=== PATIENT | female | born 1945 | race Caucasian/White ===

== ENCOUNTER → 2019-06-24 | Outpatient (CLI) | payer MEDICARE, MEDICAID, SELFPAY | PROVIDERS: Family Provider Family Medicine; Visit Provider Specialist | DX: C53.9 Malignant neoplasm of cervix uteri, unspecified (principal); C79.11 Secondary malignant neoplasm of bladder | CPT/HCPCS: 99204 ==

== ENCOUNTER → 2019-07-01 | Outpatient (CLI) | payer MEDICARE, MEDICAID, SELFPAY | PROVIDERS: Family Provider Family Medicine; Visit Provider Specialist | DX: C53.9 Malignant neoplasm of cervix uteri, unspecified (principal) | CPT/HCPCS: 77290; 77334; 77470; 99213; Q9967 ==

== ENCOUNTER 2019-07-11 06:00 | Outpatient (CLI) | payer MEDICARE, MEDICAID, SELFPAY ==
--- NOTE | 2019-07-15 12:13 | ONCRAD TMN_ITS ---
Radiation Oncology Weekly Treatment Management Patient: LESLEY ORTIZ MR#: [id number] : 1945> Age: 74> Sex: Female Dictated by: Dr. Eligio Sr Date of Service: 07/15/2019 Referring Physician(s) : Dr. Aguilar Ybarra Primary Diagnosis: C53.9 - Malignant neoplasm of cervix uteri, unspecified, Diagnosed 06/21/2019 (Active) Stage EVARISTO, T4, N1, M0 Radiotherapy to date: Course: Pelvis 2019, Treatment Site: Pelvis 45Gy, Ref. ID: [id number], Energy: 15X/6X, Dose/Fx (cGy): 180, #Fx: , Dose Correction (cGy): 0, Total Dose (cGy): 180, Start Date: 07/15/2019, Elapsed Days: 0 Current Complaints/Interval History: This is a 74-year-old woman with a diagnosis of T4, N1, M0 squamous cell carcinoma involving the cervix of the uterus with metastatic pelvic and para-aortic lymph nodes shown on PET/CT. The patient denies vaginal bleeding or pelvic pain. Constitutional Complains of mild fatigue. Denies lack of appetite, fever and night sweats. Gastrointestinal Denies abdominal pain, constipation, diarrhea, heartburn / dyspepsia, melena / GI bleeding, nausea and vomiting. No rectal bleeding or irritation Genitourinary (F) Complains of nocturia gets up 2 to 3 times per night. Denies dysuria, frequency, urgency, vaginal discharge / bleeding and vaginal spotting. Current Medications: Aloxi, aLPRAZolam, cISplatin, dexamethasone Sodium Phosphate, emend, furosemide, hYDROcodone-Acetaminophen, hYDROcodone-Acetaminophen, levothyroxine Sodium, lisinopril-hydroCHLOROthiazide, lORazepam, magnesium Sulfate, metFORMIN HCl, potassium Chloride, prochlorperazine Maleate. Allergies: Penicillins. Vital Signs: Performed on 07/15/2019 10:08 AM BMI - 33.298 kg/m2 (high), Height - 66.00 in, Weight - 206.3 lbs, Temperature - 97.9 f, Pulse - 73, Respiration - 18, O2 Sat - 98 %, Pain - 0, Fatigue - 2 and BP - 168/ 77 mm(hg)(high/). Physical Exam: Appears stable, no skin erythema or desquamation. Performance Status: 1 - No physically strenuous activity, but ambulatory and able to carry out light or sedentary work (e.g. office work, light house work). (ECOG) Lab: Test performed on 07/15/2019 9:40 AM HGB - 11.4 g/dl (low), MCHC - 31.7 g/dl (low) and Test performed on 07/15/2019 9:44 AM Cr Clearance (Est) - 65.48 ml/min (low). Imaging: No new diagnostic imaging was performed since the last weekly treatment visit. All radiation therapy related imaging (including but not limited to CBCT generated images) was reviewed. Appropriate changes, if any, were made to assure accurate target localization. Impression/Plan: We will deliver concurrent chemoRT with external beam radiation therapy to the pelvis to 45Gy followed by a boost of 5.4Gy to the primary cervical cancer and metastatic lymph nodes and a 2nd boost of 9Gy to the metastatic pelvic and para-aortic lymph nodes. Started chemoRT today. Continue treatment as planned. CPT: 73866 Signed by: Dr. Eligio Sr>07/15/2019 12:12:13 PM <<Signature on File>>
== END 2019-07-11 06:01 | disposition home or self-care (01) ==
PROVIDERS: Family Provider Family Medicine; PCP Family Medicine; Visit Provider Radiology Radiation Oncology
DX: C53.9 Malignant neoplasm of cervix uteri, unspecified (principal)
CPT/HCPCS: 77300; 77301; 77338

== ENCOUNTER 2019-08-01 05:45 | Outpatient (RCR) | payer MEDICARE, MEDICAID, SELFPAY ==
[2019-07-15] MEDS: sodium chlor 0.9% + KCl 20 mEq 20 MEQ/1,000 ML BAG 500 MEQ IV (08:30)
[2019-07-15 08:51] LABS: Basophils % 0.3 %; Eosinophils # 0.2 10^3/uL (0.0-0.8); Eosinophils % 2.4 %; Hemoglobin 11.4 g/dL (11.5-15.3); Lymphocytes # 1.6 10^3/uL (0.8-4.8); Lymphocytes % 25.8 %; Mean Corpuscular HGB Conc 31.7 g/dL (30.0-36.0); Mean Corpuscular Hemoglobin 27.5 pg (28.0-34.0); Mean Corpuscular Volume 86.7 fL (81-99); Mean Platelet Volume 10.3 fL (7.4-10.4); Monocytes # 0.6 10^3/uL (0.2-0.9); Monocytes % 9.1 %; Neutrophils # 3.8 10^3/uL (1.8-7.7); Neutrophils % 62.2 %; Nucleated Red Blood Cells % 0 %; Platelet Count 250 10^3/cmm (130-400); Red Blood Count 4.15 10^6/uL (4.1-5.3); White Blood Count 6.1 10^3/uL (4.0-10.0)
[2019-07-15 09:05] LABS: Alanine Aminotransferase 23 U/L (0-33); Albumin Level 4.4 g/dL (3.5-5.2); Alkaline Phosphatase 126 IU/L (35-105); Anion Gap 16.9 (5-19); Aspartate Amino Transferase 25 U/L (0-32); Blood Urea Nitrogen 15 mg/dL (8-23); Calcium 10.6 mg/Dl (8.8-10.2); Carbon Dioxide 24 mmol/L (22-29); Chloride 99 mmol/L (98-107); Globulin 3.1 g/dL (1.3-4.6); Glucose 155 mg/dL (74-106); Potassium 3.9 mmol/L (3.5-5.1); Sodium 136 mmol/L (136-145); Total Bilirubin 0.8 mg/dL (0.15-1.2); Total Protein 7.5 g/dL (6.6-8.7)
[2019-07-15] MEDS: sodium chloride 0.9% 250 ML 75 ML IV ×2 (11:07→11:14)
--- NOTE | 2019-07-15 11:09 | ONC FU_ITS ---
[facility] Patient Note Patient: Sharon Sotelo Unit #: [id number]: 1945 Dictated By: Sesar BreenDate of Visit: Jul 15, 2019 Onc MED Follow-Up/Prog Note Chief Complaint: Cervical cancer. 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 By clinical evaluation her disease is stage EVARISTO (T4, N1, M0). On 05/03/2019 she had presented to the emergency room with pain in the left lower quadrant/left flank area and difficulty voiding. Her CT abdomen/pelvis showed a soft tissue mass which was involving the left superior lateral aspect of the urinary bladder and was contiguous with the cervix. It measured at least 4 x 4.9 x 5.8 cm. There was associated ureterovesical junction obstruction and moderate left hydronephrosis. There was associated adenopathy including a left inferior pelvic lymph node measuring 1 x 1.5 cm, a left para-aortic lymph node measuring 1.4 cm, a common iliac lymph node measuring 1.1 cm, and bilateral external iliac lymph nodes measuring up to 2.1 x 4.2 cm on the right and 1 x 1.7 cm on the left. She was referred to Dr. Britton luna in [place]. On 06/04/2019 she underwent exam under anesthesia with cervical biopsy, cystoscopy with biopsy, and rigid proctoscopy to 15 cm. Her tumor appeared to be fixed to the left pelvic sidewall and there was noted to be right-sided parametrial disease. On the cystoscopy the tumor did appear to be involving the bladder. The cervical biopsy and the bladder biopsy both showed poorly differentiated squamous cell carcinoma. She has been recommended to undergo chemoradiation, and she was seen by Dr Downey for further management. Her PET CT from 06/29/2019 reports a 3.8 x 4.5 cm cervical mass with an SUV of 10.7, representing the primary malignancy. Bilateral FDG positive pelvic nodes are consistent with local metastatic disease. The index node in the right obturator territory measures 4.7 x 2.1 cm with an SUV of 18.4. Other FDG positive nodes are present in the left obturator, right femoral and left common iliac territories. In the left periaortic territory of the retroperitoneum there is a 1.3 cm node with minimal FDG uptake likely micrometastatic disease. There is no evidence of any osseous metastatic disease or any abnormalities in the lung liver, spleen, adrenals, stomach or pancreas. Cholelithiasis was noted and left-sided hydronephrosis was noted. Sigmoid diverticulitis was also noted. The PET/CT results were forwarded to radiation oncology for planning. Mrs. Raines is here today to start radiation and her first week of cisplatin. She has no new concerns. She denies any fever or chills for at least the last 72 hours.. She has had no mouth sores, sore throat or difficulty swallowing. She denies any shortness of breath or orthopnea. She denies any chest pain or palpitations. She has had no recent nausea or vomiting. She denies diarrhea or constipation. She has had no vaginal bleeding. She states overall she feels she is doing well. Her appetite is good currently. Her energy is fair. Her ECOG is 1. Past Medical History: Anxiety Hyperlipidemia Hypertension Type II diabetes Past Surgical History: Attempted placement of PowerPort venous access device in 2019 Exam under anesthesia with cervical biopsy, rigid proctoscopy to 15 cm, and cystoscopy in 2019 Allergies: Penicillins Medications: ALPRAZolam 1 (0.25 mg) Tablet Oral daily HYDROcodone-Acetaminophen 1 (7.5-325 mg) Tablet Oral q 6 hours PRN Levothyroxine Sodium 1 (150 mcg) Tablet Oral daily Lisinopril-hydroCHLOROthiazide 1 (20-25 mg) Tablet Oral daily metFORMIN HCl 2 (500 mg) Tablet Oral daily Family History: Ms. Sotelo's mother is . Ms. Sotelo's father is . Ms. Sotelo has 2 sisters: 2 . Father had brain aneurysm. Mother of heart attack at age 74. He had 2 sisters who from breast cancer and a neice (one of their daughters) also from breast cancer. Social History: Ms. Sotelo is single and she is a disabled. Ms. Sotelo has never smoked. She has no history of drinking. She is a non-smoker. She does not drink alcohol. Review Of Symptoms: Constitutional Denies fevers, chills, night sweats, excessive fatigue or weight loss. Allergic/Immunologic No reactions. Eyes Denies significant visual changes. No diplopia. No amaurosis. ENMT Denies changes in hearing, sore throat, mouth sores, difficulty or changes in swallowing ability, and/or sinus drainage. Endocrine No diabetes, thyroid disease or hormone replacement. Denies hot flashes or night sweats. Hematologic/Lymphatic Denies easy bruising or bleeding. The patient denies any tender or palpable lymph nodes. Respiratory Denies dyspnea on exertion, chest pain, cough or hemoptysis. Denies orthopnea. Cardiovascular Denies anginal chest pain, palpitations or orthopnea. Gastrointestinal Denies nausea, vomiting, diarrhea, GI bleeding, or constipation. Denies change in bowel habits and/or stool color, no heartburn or early satiety. Genitourinary (F) No hematuria, hesitancy, incontinence, vaginal bleeding, discharge or other problems with urination. Musculoskeletal Denies joint pain, swelling or redness. No decreased range of motion. Integumentary Denies chronic rashes, inflammation, ulcerations or skin changes. Neurologic Denies headache, blurred vision, and no areas of focal weakness or numbness. Normal gait. No sensory problems. Psychiatric Denies insomnia, depression, cornelio or mood swings. Vital Signs: Performed on Jul 15, 2019 10:08 Height - 66.00 in Weight - 206.3 lbs Temperature - 97.9 F Pulse - 73 Respiration - 18 BP - 168/77 mm(hg) (HIGH) O2 Sat - 98 % Pain - 0 Fatigue - 2 Performed on Jul 15, 2019 10:08 BMI - 33.298 kg/m2 (HIGH) Performed on Jul 15, 2019 08:53 Height - 66.00 in Weight - 206.0 lbs (HIGH) BSA - 2.03 sq.m BMI - 33.25 (HIGH) Temperature - 97.9 F (LOW) Pulse - 73 /min Respiration - 12 /min BP - 168/77 mm(hg) (HIGH) O2 Sat - 98 % Pain - 0 Fatigue - 2,1 - No physically strenuous activity, but ambulatory and able to carry out light or sedentary work (e.g. office work, light house work). (ECOG) Physical Examination: Constitutional Alert, oriented, no acute distress. Skin pink, warm and dry. Head Normocephalic; atraumatic. Eyes Conjunctivae and sclerae are clear and without icterus. Pupils are reactive and equal. ENMT No oral exudates, ulcers, masses, thrush or mucositis. Oropharynx clear. Tongue normal. Neck Supple without masses or thyromegaly. No jugular venous distension. Hematologic/Lymphatic No petechiae or purpura. No tender or palpable lymph nodes in the cervical or supraclavicular areas. Respiratory Lungs are clear to auscultation without rhonchi or wheezing. Cardiovascular Regular rate and rhythm of heart without murmurs,clicks, gallops or rubs. Abdomen Non-tender, non-distended, no masses or ascites. Good bowel sounds noted in all quads. No guarding or rebound tenderness. No pulsatile masses. Back/Spine Non-tender to palpation. Extremities No visible deformities, no cyanosis, clubbing or edema. Musculoskeletal No tenderness or swelling, normal range of motion without obvious weakness. Integumentary No rashes or lesions. Neurologic No sensory or motor deficits, normal cerebellar function, normal gait. Psychiatric Alert and oriented times three. Coherent speech. Verbalizes understanding of our discussions today. Laboratory:Test performed on Jul 15, 2019 09:44 Glucose 155 mg/dL BUN 15 mg/dL Creatinine 1.1 mg/dL Cr Clearance (Est) 65.48 mL/min Sodium 136 mmol/L Potassium 3.9 mmol/L Chloride 99 mmol/L CO2 24 mmol/L Calcium 10.6 mg/dL Protein, Total 7.5 g/dL Albumin 4.4 g/dL Globulin 3.1 g/dL Bilirubin, Total 0.8 mg/dL Alkaline Phosphatase 126 IU/L AST (SGOT) 25 IU/L ALT (SGPT) 23 IU/L Test performed on Jul 15, 2019 09:40 WBC 6.1 10^9/L RBC 4.15 10^12/L HGB 11.4 g/dL HCT 36.0 % MCV 86.7 fl MCH 27.5 pg MCHC 31.7 g/dL RDW 13.0 % Platelet Count 250 10^9/L MPV 10.3 fL Neutrophils (Gran) 3.8 10^9/L Lymphocytes 1.5738 10^9/L Monocytes 0.5551 10^9/L Eosinophils 0.1464 10^9/L Basophils 0.0183 10^9/L NRBCs 0 /100 WBC Test performed on Jul 15, 2019 08:30 Neutrophil % 62.2 % Lymphocyte % 25.8 % Monocyte % 9.1 % Basophils % 0.3 % Impression: 1. 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 2. On 06/04/2019 she underwent exam under anesthesia with cervical biopsy, cystoscopy with biopsy of the bladder, and rigid proctoscopy to 15 cm. Her other medical illnesses include: 3. Hypertension. 4. Type 2 diabetes. 5. Hypothyroidism. 6. Chronic anxiety. The CT findings and pathology results were reviewed with the patient. We discussed the clinical implications. 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 Her PET CT from 06/29/2019 reports a 3.8 x 4.5 cm cervical mass with an SUV of 10.7, representing the primary malignancy. Bilateral FDG positive pelvic nodes are consistent with local metastatic disease. The index node in the right obturator territory measures 4.7 x 2.1 cm with an SUV of 18.4. Other FDG positive nodes are present in the left obturator, right femoral and left common iliac territories. In the left periaortic territory of the retroperitoneum there is a 1.3 cm node with minimal FDG uptake likely micrometastatic disease. There is no evidence of any osseous metastatic disease or any abnormalities in the lung liver, spleen, adrenals, stomach or pancreas. Cholelithiasis was noted and left-sided hydronephrosis was noted. Sigmoid diverticulitis was also noted. The PET/CT results were forwarded to radiation oncology for planning. The findings on the PET/CT make her disease more extensive, but did not change her staging or chemotherapy portion of her treatment plan. Mrs Sotelo will begin her first weekly dose of Cisplatin and radiation therapy today. Plan: 1. Proceed with week 1 cisplatin. 2. Aggressive anti-emetic as high risk regimen for nausea. 3. Compazine and Ativan as needed at home for antiemetics. 4. Today's labs reviewed in detail and discussed with Ms. Raines and a copy was given to her. WBC 6.1, hemoglobin 11.4, platelets 250,000 ANC is 3800. Creatinine 1.1 random glucose 155 calcium 10.6 alk phos 126 LFTs otherwise are normal. Potassium is 3.9. 5. We will plan follow-up in 1 week with CBC CMP and consideration of weekly cisplatin???week 2. 6. I again reviewed anticipated side effects with the chemotherapy which may include nausea/vomiting, alopecia, fatigue, low blood counts, and neuropathy, hearing changes (although low risk with weekly dosing), among others. 7. Mrs. Raines was instructed to contact us in the interim should questions or problems arise. Signed By: Sesar Breen-, AOCNP Gato Downey MD <<Signature on File>>
[2019-07-15] MEDS: FUROsemide 10 mg/mL SDV 2mL 20 MG IV (12:35)
[2019-07-15] MEDS: potassium chloride 20 MEQ in sodium chloride 0.9% 500 ML 250 MEQ IV (12:38)
[2019-07-22] MEDS: sodium chloride 0.9% 250 ML 75 ML IV (10:00)
[2019-07-22 10:49] LABS: Basophils % 0.5 %; Eosinophils # 0.1 10^3/uL (0.0-0.8); Eosinophils % 1.3 %; Hematocrit 38.1 % (37.0-47.0); Hemoglobin 12.1 g/dL (11.5-15.3); Lymphocytes # 0.8 10^3/uL (0.8-4.8); Lymphocytes % 13.4 %; Mean Corpuscular HGB Conc 31.8 g/dL (30.0-36.0); Mean Corpuscular Hemoglobin 28.8 pg (28.0-34.0); Mean Corpuscular Volume 90.7 fL (81-99); Mean Platelet Volume 10.4 fL (7.4-10.4); Monocytes # 0.5 10^3/uL (0.2-0.9); Monocytes % 7.4 %; Neutrophils # 4.7 10^3/uL (1.8-7.7); Neutrophils % 76.3 %; Nucleated Red Blood Cells % 0 %; Platelet Count 215 10^3/cmm (130-400); Red Cell Distribution Width 12.8 % (12.1-15.1); White Blood Count 6.1 10^3/uL (4.0-10.0)
[2019-07-22 11:12] LABS: Alanine Aminotransferase 21 U/L (0-33); Alkaline Phosphatase 139 IU/L (35-105); Aspartate Amino Transferase 24 U/L (0-32); Blood Urea Nitrogen 19 mg/dL (8-23); Calcium 10.6 mg/Dl (8.8-10.2); Carbon Dioxide 22 mmol/L (22-29); Chloride 96 mmol/L (98-107); Glucose 135 mg/dL (74-106); Sodium 133 mmol/L (136-145); Total Bilirubin 0.7 mg/dL (0.15-1.2)
[2019-07-22] MEDS: FUROsemide 10 mg/mL SDV 2mL 20 MG IV (14:11)
[2019-07-22] MEDS: potassium chloride 20 MEQ in sodium chloride 0.9% 500 ML 250 MEQ IV (14:15)
--- NOTE | 2019-07-23 16:01 | ONCRAD TMN_ITS ---
Radiation Oncology Weekly Treatment Management Patient: Sharon Sotelo MR#: [id number] : 1945> Age: 74> Sex: Female Dictated by: Dr. Eligio Sr Date of Service: 07/23/2019 Referring Physician(s) : Dr. Aguilar Ybarra Primary Diagnosis: C53.9 - Malignant neoplasm of cervix uteri, unspecified, Diagnosed 06/21/2019 (Active) Stage EVARISTO, T4, N1, M0 Radiotherapy to date: Course: Pelvis 2019, Treatment Site: Pelvis 45Gy, Ref. ID: [id number], Energy: 15X/6X, Dose/Fx (cGy): 180, #Fx: , Dose Correction (cGy): 0, Total Dose (cGy): 1,260, Start Date: 07/15/2019, Elapsed Days: 8 Current Complaints/Interval History: Constitutional Complains of mild fatigue. Denies lack of appetite, fever and night sweats. Integumentary No redness to the area of treatment Gastrointestinal Complains of diarrhea which is characterized as loose, watery had it on Monday and had a few episodes. Complains of nausea. Denies pelvic pain, constipation and vomiting. Genitourinary (F) Complains of nocturia gets up about 2 to 3 times per night. Denies dysuria, frequency, urgency, vaginal discharge / bleeding and vaginal spotting. Current Medications: Aloxi, aLPRAZolam, aLPRAZolam, ativan, cISplatin, dexamethasone, dexamethasone Sodium Phosphate, emend, furosemide, hYDROcodone-Acetaminophen, hYDROcodone-Acetaminophen, levothyroxine Sodium, lisinopril-hydroCHLOROthiazide, lORazepam, magnesium Sulfate, metFORMIN HCl, potassium Chloride, prochlorperazine Maleate. Allergies: Penicillins. Vital Signs: Performed on 07/23/2019 10:14 AM BMI - 33.024 kg/m2 (high), Height - 66.00 in, Weight - 204.6 lbs, Temperature - 97.5 f, Pulse - 70, Respiration - 18, O2 Sat - 98 %, Pain - 0 and BP - 146/ 76 mm(hg)(high/). Physical Exam: Appears stable, no skin erythema or desquamation. Performance Status: 2 - Ambulatory/capable of all self-care, unable to perform any work activities. Up and about more than 50% of waking hours. (ECOG) Lab: Test performed on 07/22/2019 10:30 AM MCHC - 31.8 g/dl (low), Manual Lymphocytes - 13.4 % (low), Cr Clearance (Est) - 72.03 ml/min (low) and Sodium - 133 mmol/l (low). Imaging: No new diagnostic imaging was performed since the last weekly treatment visit. All radiation therapy related imaging (including but not limited to CBCT generated images) was reviewed. Appropriate changes, if any, were made to assure accurate target localization. Impression/Plan: Tolerating treatment well with expected side effects. Continue treatment as planned. I instructed the patient again about the importance of keeping a full bladder during radiotherapy. Will refer her to [facility] for HDR brachytherapy. CPT: 94989 Signed by: Dr. Eligio Sr>07/23/2019 4:00:13 PM <<Signature on File>>
--- NOTE | 2019-07-26 20:12 | ONC FU_ITS ---
Dr. Downey Patient Follow-Up Note Patient: Sharon Sotelo Unit #: [id number]: 1945 Dicatated By: Gato Downey M.D.Date of Visit:Jul 22, 2019 Onc Med Follow-up/Prog Note Chief Complaint: Cervical cancer. 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 On 05/03/2019 she had presented to the emergency room with pain in the left lower quadrant/left flank area and difficulty voiding. Her CT abdomen/pelvis showed a soft tissue mass which was involving the left superior lateral aspect of the urinary bladder and was contiguous with the cervix. It measured at least 4 x 4.9 x 5.8 cm. There was associated ureterovesical junction obstruction and moderate left hydronephrosis. There was associated adenopathy including a left inferior pelvic lymph node measuring 1 x 1.5 cm, a left para-aortic lymph node measuring 1.4 cm, a common iliac lymph node measuring 1.1 cm, and bilateral external iliac lymph nodes measuring up to 2.1 x 4.2 cm on the right and 1 x 1.7 cm on the left. She was referred to Dr. mike luna in [place]. On 06/04/2019 she underwent exam under anesthesia with cervical biopsy, cystoscopy with biopsy, and rigid proctoscopy to 15 cm. Her tumor appeared to be fixed to the left pelvic sidewall and there was noted to be right-sided parametrial disease. On the cystoscopy the tumor did appear to be involving the bladder. The cervical biopsy and the bladder biopsy both showed poorly differentiated squamous cell carcinoma. She was recommended to undergo chemoradiation. Her other medical illnesses include hypertension, type 2 diabetes, and hypothyroidism. She also has chronic anxiety. She is a non-smoker. INTERIM HISTORY: She began radiation concurrently with weekly cisplatin chemotherapy on 07/15/2019. She experienced no acute toxicity with her initial infusion of cisplatin. She is seen for a follow-up visit. She complains that she is real tired, and she has very limited activity. ECOG score is 2. She says she has felt kind of sick and queasy since her chemotherapy last week, but she has not had any vomiting. Her appetite is not too good. She has not had fever or night sweats. She has had no mouth sores. She has no shortness of breath, cough, or chest pain. She had some diarrhea yesterday, and she continues to have pain in her lower abdomen/pelvic area. She has hesitancy with urination and some urinary frequency. She has no significant joint or bone pain. She has no focal neurologic symptoms. Medications: ALPRAZolam 1 (0.25 mg) Tablet Oral daily, HYDROcodone-Acetaminophen 1 (7.5-325 mg) Tablet Oral q 6 hours PRN, Levothyroxine Sodium 1 (150 mcg) Tablet Oral daily, Lisinopril-hydroCHLOROthiazide 1 (20-25 mg) Tablet Oral daily, metFORMIN HCl 2 Tablet (of 500 mg) Oral daily Allergies: Penicillins Review of Systems: Constitutional - She feels tired, and her activity is very limited. Her appetite is not too good. No fever, chills, hot flashes, or night sweats. ECOG score is 2, ENMT - No sinus congestion/drainage. No mouth sores. No sore throat or difficulty swallowing, Hematologic/Lymphatic - No abnormal bruising or bleeding, Respiratory - No shortness of breath. No cough. No pleuritic pain or hemoptysis, Cardiovascular - No angina pain. No palpitations, Gastrointestinal - She has felt nauseated, but without vomiting. No heartburn or acid reflux. She has lower abdominal/pelvic pain, and she had diarrhea yesterday. No blood in the stool or black stools, Genitourinary (F) - She has hesitancy with urination, and she has some urinary frequency. No dysuria or hematuria. No urgency or incontinence, Musculoskeletal - No joint or bone pain, Integumentary - No skin complications, Neurologic - No headache or dizziness. No numbness/paresthesias or other focal neurologic symptoms, Psychiatric - She has some anxiety/stress. No depression. She does not sleep well at night. Vital Signs: Performed on Jul 22, 2019 11:26 Height - 66.00 in Weight - 201.6 lbs (LOW) BSA - 2.01 sq.m BMI - 32.54 (HIGH) Temperature - 98.0 F (LOW) Pulse - 95 /min Respiration - 26 /min BP - 150/69 mm(hg) (HIGH) O2 Sat - 99 % Pain - 4 Physical Examination: Constitutional - She looks pretty good generally, Eyes - Sclerae nonicteric. Conjunctivae clear, ENMT - No lesions noted in the oral cavity, Hematologic/Lymphatic - No cervical, clavicular, or axillary adenopathy, Respiratory - Lungs are clear with good air movement bilaterally, Cardiovascular - Heart rhythm is regular. There is a II/ systolic no murmur. There is no gallop or rub noted, Abdomen - Soft with mild tenderness in the lower abdomen. Liver and spleen are not enlarged. There is no abdominal mass or ascites noted and there is no inguinal adenopathy, Extremities - No edema, Neurologic - No focal neurologic deficits noted. Lab/Imaging: Test performed on Jul 22, 2019 10:30 Glucose 135 mg/dL BUN 19 mg/dL Creatinine 1.0 mg/dL Cr Clearance (Est) 72.03 mL/min Sodium 133 mmol/L Potassium 4.0 mmol/L Chloride 96 mmol/L CO2 22 mmol/L Calcium 10.6 mg/dL Protein, Total 8.0 g/dL Albumin 4.0 g/dL Globulin 4.0 g/dL Bilirubin, Total 0.7 mg/dL Alkaline Phosphatase 139 IU/L AST (SGOT) 24 IU/L ALT (SGPT) 21 IU/L WBC 6.1 10^9/L RBC 4.20 10^12/L HGB 12.1 g/dL HCT 38.1 % MCV 90.7 fl MCH 28.8 pg MCHC 31.8 g/dL RDW 12.8 % Platelet Count 215 10^9/L MPV 10.4 fL Neutrophils (Gran) 4.7 10^9/L Lymphocytes 0.8 10^9/L Monocytes 0.5 10^9/L Eosinophils 0.1 10^9/L Basophils 0.0 10^9/L Manual Lymphocytes 13.4 % Manual Monocytes 7.4 % Manual Eosinophils 1.3 % Manual Basophils 0.5 % NRBCs 0.0 /100 WBC Impression: 1. 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 2. On 06/04/2019 she underwent exam under anesthesia with cervical biopsy, cystoscopy with biopsy of the bladder, and rigid proctoscopy to 15 cm. Her other medical illnesses include: 3. Hypertension. 4. Type 2 diabetes. 5. Hypothyroidism. 6. Chronic anxiety. She began radiation concurrently with weekly cisplatin chemotherapy on 07/15/2019. Thus far she has had some nausea and fatigue with the chemotherapy, but she has been able to tolerate it with acceptable toxicity. Plan: She will proceed with week 2 cisplatin at 40 mg/m??? by IV infusion. She will be given a dexamethasone taper with this cycle. She returns in 1 week. Signed By: Gato Downey M.D. <<Signature on File>>
[2019-07-29] MEDS: sodium chloride 0.9% 250 ML IV (10:44)
[2019-07-29 10:54] LABS: Basophils % 0.1 %; Eosinophils % 0.4 %; Hemoglobin 11.8 g/dL (11.5-15.3); Lymphocytes # 0.5 10^3/uL (0.8-4.8); Lymphocytes % 6.9 %; Mean Corpuscular HGB Conc 31.9 g/dL (30.0-36.0); Mean Corpuscular Hemoglobin 28.4 pg (28.0-34.0); Mean Corpuscular Volume 89.2 fL (81-99); Mean Platelet Volume 9.8 fL (7.4-10.4); Monocytes # 0.4 10^3/uL (0.2-0.9); Monocytes % 5.8 %; Neutrophils # 6.1 10^3/uL (1.8-7.7); Nucleated Red Blood Cells % 0 %; Platelet Count 152 10^3/cmm (130-400); Red Blood Count 4.15 10^6/uL (4.1-5.3); Red Cell Distribution Width 12.7 % (12.1-15.1); White Blood Count 7.1 10^3/uL (4.0-10.0)
[2019-07-29 11:08] LABS: Alanine Aminotransferase 19 U/L (0-33); Albumin Level 4.6 g/dL (3.5-5.2); Alkaline Phosphatase 141 IU/L (35-105); Anion Gap 20.6 (5-19); Aspartate Amino Transferase 19 U/L (0-32); Blood Urea Nitrogen 19 mg/dL (8-23); Calcium 10.9 mg/dL (8.5-10.5); Carbon Dioxide 23 mmol/L (22-29); Chloride 95 mmol/L (98-107); Globulin 3.8 g/dL (1.3-4.6); Glucose 158 mg/dL (74-106); Potassium 3.6 mmol/L (3.5-5.1); Sodium 135 mmol/L (136-145); Total Bilirubin 0.5 mg/dL (0.15-1.2); Total Protein 8.4 g/dL (6.6-8.7)
[2019-07-29] MEDS: FUROsemide 10 mg/mL SDV 2mL 20 MG IV (14:16)
[2019-07-29] MEDS: potassium chloride 20 MEQ in sodium chloride 0.9% 500 ML 250 MEQ IV (14:19)
--- NOTE | 2019-07-29 21:19 | ONC FU_ITS ---
Dr. Downey Patient Follow-Up Note Patient: Sharon Sotelo Unit #: [id number]: 1945 Dicatated By: Gato Downey M.D.Date of Visit:Jul 29, 2019 Onc Med Follow-up/Prog Note Chief Complaint: Cervical cancer. 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 On 05/03/2019 she had presented to the emergency room with pain in the left lower quadrant/left flank area and difficulty voiding. Her CT abdomen/pelvis showed a soft tissue mass which was involving the left superior lateral aspect of the urinary bladder and was contiguous with the cervix. It measured at least 4 x 4.9 x 5.8 cm. There was associated ureterovesical junction obstruction and moderate left hydronephrosis. There was associated adenopathy including a left inferior pelvic lymph node measuring 1 x 1.5 cm, a left para-aortic lymph node measuring 1.4 cm, a common iliac lymph node measuring 1.1 cm, and bilateral external iliac lymph nodes measuring up to 2.1 x 4.2 cm on the right and 1 x 1.7 cm on the left. She was referred to Dr. mike luna in [place]. On 06/04/2019 she underwent exam under anesthesia with cervical biopsy, cystoscopy with biopsy, and rigid proctoscopy to 15 cm. Her tumor appeared to be fixed to the left pelvic sidewall and there was noted to be right-sided parametrial disease. On the cystoscopy the tumor did appear to be involving the bladder. The cervical biopsy and the bladder biopsy both showed poorly differentiated squamous cell carcinoma. She was recommended to undergo chemoradiation. Her other medical illnesses include hypertension, type 2 diabetes, and hypothyroidism. She also has chronic anxiety. She is a non-smoker. INTERIM HISTORY: She began radiation concurrently with weekly cisplatin chemotherapy on 07/15/2019. She experienced no acute toxicity with her initial infusion of cisplatin. She was then able to continue with her week 2 treatment on 07/22/2019. She is seen for a follow-up visit. She says she has been feeling pretty good, though she is really tired. She is really not capable of doing work activities now, and she is having to have her daughter do most of the housework. She has pretty good appetite. She has no fever or night sweats. She has had no mouth sores. She has no shortness of breath, cough, or chest pain. She has not been having nausea. During the past week she has been having some diarrhea, but it is adequately controlled with Imodium. Bladder function is better, and she is not having to void as frequently. She has no dysuria or hematuria. She has no significant joint or bone pain. She has no focal neurologic symptoms. Medications: ALPRAZolam 1 (0.25 mg) Tablet Oral daily, HYDROcodone-Acetaminophen 1 (7.5-325 mg) Tablet Oral q 6 hours PRN, Levothyroxine Sodium 1 (150 mcg) Tablet Oral daily, Lisinopril-hydroCHLOROthiazide 1 (20-25 mg) Tablet Oral daily, metFORMIN HCl 2 Tablet (of 500 mg) Oral daily Allergies: Penicillins Review of Systems: Constitutional - Her energy is low. She is up and around at home. Her appetite is good and her weight is stable. No fever, chills, hot flashes, or night sweats. ECOG score is 2, ENMT - No sinus congestion/drainage. No mouth sores. No sore throat or difficulty swallowing, Hematologic/Lymphatic - No abnormal bruising or bleeding, Respiratory - No shortness of breath. No cough. No pleuritic pain or hemoptysis, Cardiovascular - No angina pain. No palpitations, Gastrointestinal - No nausea or vomiting. No heartburn or acid reflux. She has a lot of diarrhea. She is taking Imodium and it is working so far. No blood in the stool or black stools, Genitourinary (F) - No dysuria or hematuria. She is not urinating as frequently. No urgency or incontinence, Musculoskeletal - No joint or bone pain, Integumentary - No skin complications, Neurologic - No headache or dizziness. No numbness/paresthesias or other focal neurologic symptoms, Psychiatric - Her anxiety is a little better since increasing the dose of her Xanax. No insomnia. Vital Signs: Performed on Jul 29, 2019 11:22 Height - 66.00 in Weight - 203.2 lbs (LOW) BSA - 2.01 sq.m BMI - 32.80 (HIGH) Temperature - 97.5 F (LOW) Pulse - 77 /min Respiration - 22 /min BP - 174/78 mm(hg) (HIGH) O2 Sat - 99 % Pain - 0 Physical Examination: Constitutional - She appears somewhat weak generally, but not acutely ill, Eyes - Sclerae nonicteric. Conjunctivae clear, ENMT - No lesions noted in the oral cavity, Hematologic/Lymphatic - No cervical, clavicular, or axillary adenopathy, Respiratory - Lungs are clear with good air movement bilaterally, Cardiovascular - Heart rhythm is regular. There is a II/ systolic no murmur. There is no gallop or rub noted, Abdomen - Soft. Liver and spleen are not enlarged. There is no abdominal mass or ascites noted and there is no inguinal adenopathy, Extremities - No edema, Integumentary - There is no skin reaction, Neurologic - No focal neurologic deficits noted. Lab/Imaging: Test performed on Jul 29, 2019 10:40 Sodium 135 mmol/L Potassium 3.6 mmol/L Chloride 95 mmol/L CO2 23 mmol/L Anion Gap 20.6 BUN 19 mg/dL Creatinine 1.1 mg/dL Cr Clearance (Est) 65.4800 mL/min Glucose 158 mg/dL Calcium 10.9 mg/dL Protein, Total 8.4 g/dL Albumin 4.6 g/dL Globulin 3.8 g/dL Bilirubin, Total 0.5 mg/dL ALT (SGPT) 19 U/L AST (SGOT) 19 U/L Alkaline Phosphatase 141 IU/L WBC 7.1 10 3/uL RBC 4.15 10 6/uL HGB 11.8 g/dL HCT 37.0 % MCV 89.2 fL MCH 28.4 pg MCHC 31.9 g/dL RDW 12.7 % Platelet Count 152 10 3/cmm MPV 9.8 fL Neutrophils 6.1 10 3/uL Lymphocytes 0.5 10 3/uL Monocytes 0.4 10 3/uL Eosinophils 0.0 10 3/uL Basophils 0.0 10 3/uL Neutrophil % 86.0 % Lymphocyte % 6.9 % Monocyte % 5.8 % Eosinophil % 0.4 % Basophils % 0.1 % Impression: 1. 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 2. On 06/04/2019 she underwent exam under anesthesia with cervical biopsy, cystoscopy with biopsy of the bladder, and rigid proctoscopy to 15 cm. Her other medical illnesses include: 3. Hypertension. 4. Type 2 diabetes. 5. Hypothyroidism. 6. Chronic anxiety. She began radiation concurrently with weekly cisplatin chemotherapy on 07/15/2019. She had some nausea and fatigue with the initial chemotherapy treatment, but she was able to tolerate it with acceptable toxicity, and she continued with her week to cisplatin infusion on 07/22/2019. Since then there has been some further decline in her energy/activity tolerance, to the point that she is now requiring assistance with her tele rn. She is otherwise tolerating the treatment well. Plan: She will proceed with week 3 cisplatin at 40 mg/m??? by IV infusion. She returns in 1 week. In the meantime, I will see if we get some assistance for tele rn provided through Medicaid. Signed By: Gato Downey M.D. <<Signature on File>>
--- NOTE | 2019-07-31 16:18 | ONCRAD TMN_ITS ---
Radiation Oncology Weekly Treatment Management Patient: Sharon Sotelo MR#: [id number] : 1945 Age: 74 Sex: Female Dictated by: Dr. Eligio Sr Date of Service: 07/31/2019 Referring Physician(s) : Dr. Aguilar Ybarra Primary Diagnosis: C53.9 - Malignant neoplasm of cervix uteri, unspecified, Diagnosed 06/21/2019 (Active) Stage EVARISTO, T4, N1, M0 Radiotherapy to date: Course: Pelvis 2019, Treatment Site: Pelvis 45Gy, Ref. ID: [id number], Energy: 15X/6X, Dose/Fx (cGy): 180, #Fx: , Dose Correction (cGy): 0, Total Dose (cGy): 2,340, Start Date: 07/15/2019, Elapsed Days: 16 Current Complaints/Interval History: Constitutional Complains of moderate fatigue. Denies lack of appetite, fever and night sweats. Integumentary No redness to the area of treatment Gastrointestinal Complains of intermittent diarrhea which is characterized as loose, watery. Complains of heartburn / dyspepsia and nausea. Denies abdominal pain, constipation, melena / GI bleeding and vomiting. Genitourinary (F) Complains of nocturia gets up about 3 times per night. Denies dysuria, frequency, urgency, vaginal discharge / bleeding and vaginal spotting. Current Medications: Aloxi, aLPRAZolam, aLPRAZolam, ativan, cISplatin, dexamethasone, dexamethasone Sodium Phosphate, emend, furosemide, hYDROcodone-Acetaminophen, hYDROcodone-Acetaminophen, levothyroxine Sodium, lisinopril-hydroCHLOROthiazide, lORazepam, magnesium Sulfate, metFORMIN HCl, potassium Chloride, prochlorperazine Maleate. Allergies: Penicillins. Vital Signs: Performed on 07/31/2019 10:29 AM BMI - 33.12 kg/m2 (high), Height - 66.00 in, Weight - 205.2 lbs, Temperature - 97.3 f, Pulse - 71, Respiration - 18, O2 Sat - 98 %, Pain - 0 and BP - 125/ 73 mm(hg). Physical Exam: Appears stable, no skin erythema or desquamation. Abdomen soft and nontender Performance Status: 2 - Ambulatory/capable of all self-care, unable to perform any work activities. Up and about more than 50% of waking hours. (ECOG) Lab: None pending in Radiation Oncology. Imaging: No new diagnostic imaging was performed since the last weekly treatment visit. All radiation therapy related imaging (including but not limited to CBCT generated images) was reviewed. Appropriate changes, if any, were made to assure accurate target localization. Impression/Plan: Tolerating treatment well with expected side effects. Continue treatment as planned. Imodium prn watery diarrhea. I instructed patient to keep a full bladder during RT treatment to minimize radiation to the bowels. CPT: 08074 Signed by: Dr. Eligio Sr>07/31/2019 4:17:52 PM <<Signature on File>>
== END 2019-08-02 23:59 | disposition home or self-care (01) ==
LOC: ONCMED 05:45
PROVIDERS: Internal Medicine Medical Oncology; Nurse Practitioner; Absent Provider Radiology Radiation Oncology; Family Provider Family Medicine; PCP Family Medicine; Referring Provider Radiology Radiation Oncology; Visit Provider Radiology Radiation Oncology
DX: Z51.0 Encounter for antineoplastic radiation therapy (principal); Z51.11 Encounter for antineoplastic chemotherapy; C53.8 Malignant neoplasm of overlapping sites of cervix uteri; C77.8 Secondary and unspecified malignant neoplasm of lymph nodes of multiple regions; C79.11 Secondary malignant neoplasm of bladder; K80.20 Calculus of gallbladder without cholecystitis without obstruction; F41.9 Anxiety disorder, unspecified; E78.5 Hyperlipidemia, unspecified; I10 Essential (primary) hypertension; E11.9 Type 2 diabetes mellitus without complications; E03.9 Hypothyroidism, unspecified; Z79.891 Long term (current) use of opiate analgesic; Z79.84 Long term (current) use of oral hypoglycemic drugs
CPT/HCPCS: 77014; 77280; 77300; 77336; 77338; 77386; 77427; 80053; 85025; 96366; 96367; 96375; 96413; 99214; J1100; J1453; J1940; J2469; J3475; J3480; J7030; J7040; J7050; J9060

== ENCOUNTER 2019-08-30 05:43 | Outpatient (RCR) | payer MEDICARE, MEDICAID, SELFPAY ==
[2019-08-05 09:58] LABS: Eosinophils # 0.1 10^3/uL (0.0-0.8); Eosinophils % 2.8 %; Hematocrit 31.6 % (37.0-47.0); Hemoglobin 10.2 g/dL (11.5-15.3); Lymphocytes # 0.3 10^3/uL (0.8-4.8); Lymphocytes % 9.2 %; Mean Corpuscular HGB Conc 32.3 g/dL (30.0-36.0); Mean Corpuscular Hemoglobin 29.1 pg (28.0-34.0); Mean Platelet Volume 9.6 fL (7.4-10.4); Monocytes # 0.4 10^3/uL (0.2-0.9); Monocytes % 12.4 %; Neutrophils # 2.1 10^3/uL (1.8-7.7); Neutrophils % 74.5 %; Nucleated Red Blood Cells % 0 %; Platelet Count 109 10^3/cmm (130-400); Red Blood Count 3.51 10^6/uL (4.1-5.3); Red Cell Distribution Width 13.4 % (12.1-15.1); White Blood Count 2.8 10^3/uL (4.0-10.0)
[2019-08-05 10:15] LABS: Alanine Aminotransferase 12 U/L (0-33); Albumin Level 3.5 g/dL (3.5-5.2); Alkaline Phosphatase 124 IU/L (35-105); Anion Gap 17.9 (5-19); Aspartate Amino Transferase 14 U/L (0-32); Blood Urea Nitrogen 14 mg/dL (8-23); Calcium 9.7 mg/dL (8.5-10.5); Carbon Dioxide 25 mmol/L (22-29); Chloride 94 mmol/L (98-107); Globulin 3.7 g/dL (1.3-4.6); Glucose 173 mg/dL (74-106); Potassium 3.9 mmol/L (3.5-5.1); Sodium 133 mmol/L (136-145); Total Bilirubin 0.6 mg/dL (0.15-1.2); Total Protein 7.2 g/dL (6.6-8.7)
--- NOTE | 2019-08-05 11:36 | ONC FU_ITS ---
[facility] Patient Note Patient: Sharon Sotelo Unit #: [id number]: 1945 Dictated By: Sesar BreenDate of Visit: Aug 05, 2019 Onc MED Follow-Up/Prog Note Chief Complaint: Cervical cancer. 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 On 05/03/2019 she had presented to the emergency room with pain in the left lower quadrant/left flank area and difficulty voiding. Her CT abdomen/pelvis showed a soft tissue mass which was involving the left superior lateral aspect of the urinary bladder and was contiguous with the cervix. It measured at least 4 x 4.9 x 5.8 cm. There was associated ureterovesical junction obstruction and moderate left hydronephrosis. There was associated adenopathy including a left inferior pelvic lymph node measuring 1 x 1.5 cm, a left para-aortic lymph node measuring 1.4 cm, a common iliac lymph node measuring 1.1 cm, and bilateral external iliac lymph nodes measuring up to 2.1 x 4.2 cm on the right and 1 x 1.7 cm on the left. She was referred to Dr. Ybarra in [place]. On 06/04/2019 she underwent exam under anesthesia with cervical biopsy, cystoscopy with biopsy, and rigid proctoscopy to 15 cm. Her tumor appeared to be fixed to the left pelvic sidewall and there was noted to be right-sided parametrial disease. On the cystoscopy the tumor did appear to be involving the bladder. The cervical biopsy and the bladder biopsy both showed poorly differentiated squamous cell carcinoma. She was recommended to undergo chemoradiation. Her other medical illnesses include hypertension, type 2 diabetes, and hypothyroidism. She also has chronic anxiety. She is a non-smoker. INTERIM HISTORY: She began radiation concurrently with weekly cisplatin chemotherapy on 07/15/2019. She experienced no acute toxicity with her initial infusion of cisplatin. She was then able to continue with her week 2 treatment on 07/22/2019. Ms. Raines is here today for follow-up and consideration of week for cisplatin. She is completed 3 weeks with no problems at this point. She is had persistent diarrhea but states is no worse just no better. She is taken the Imodium several times a day. She states this does slow the diarrhea down but does not control it completely. She denies any abdominal pain or cramping. She denies any nausea or vomiting. She has had no fever or chills. She states her appetite is good although she is supplementing her diet with Ensure. She denies any hearing changes and/or peripheral neuropathy symptoms. She was able to get assistance with her trailer rental clerk through Medicaid and she is feeling some better having that help. She is able to rest a little more. Her ECOG is 1 currently. She states she continues to have the heartburn and when asked about the Protonix she did not have it from the pharmacy. I will check on this and send it to the pharmacy if it did not go through last week. She has been using Tums [id number] which gives her some relief but she is having to take multiple daily. Past Medical History: Anxiety Hyperlipidemia Hypertension Type II diabetes Past Surgical History: Attempted placement of PowerPort venous access device in 2019 Exam under anesthesia with cervical biopsy, rigid proctoscopy to 15 cm, and cystoscopy in 2019 Allergies: Penicillins Medications: ALPRAZolam 1 (0.25 mg) Tablet Oral daily HYDROcodone-Acetaminophen 1 (7.5-325 mg) Tablet Oral q 6 hours PRN Levothyroxine Sodium 1 (150 mcg) Tablet Oral daily Lisinopril-hydroCHLOROthiazide 1 (20-25 mg) Tablet Oral daily LORazepam 1 Tablet (of 1 mg) Oral t.i.d. PRN metFORMIN HCl 2 Tablet (of 500 mg) Oral daily Prochlorperazine Maleate 1 Tablet (of 10 mg) Oral q 4 hours PRN Family History: Ms. Sotelo's mother is . Ms. Sotelo's father is . Ms. Sotelo has 2 sisters: 2 . Father had brain aneurysm. Mother of heart attack at age 74. He had 2 sisters who from breast cancer and a neice (one of their daughters) also from breast cancer. Social History: Ms. Sotelo is single and she is a disabled. Ms. Sotelo has never smoked. She has no history of drinking. She is a non-smoker. She does not drink alcohol. Review Of Symptoms: Constitutional Denies fevers, chills, night sweats, excessive fatigue or weight loss. Allergic/Immunologic No reactions. Eyes Denies significant visual changes. No diplopia. No amaurosis. ENMT Denies changes in hearing, sore throat, mouth sores, difficulty or changes in swallowing ability, and/or sinus drainage. Endocrine No diabetes, thyroid disease or hormone replacement. Denies hot flashes or night sweats. Hematologic/Lymphatic Denies easy bruising or bleeding. The patient denies any tender or palpable lymph nodes. Respiratory Denies dyspnea on exertion, chest pain, cough or hemoptysis. Denies orthopnea. Cardiovascular Denies anginal chest pain, palpitations or orthopnea. Gastrointestinal Denies nausea, vomiting, GI bleeding, or constipation. Persistent diarrhea-Imodium helps but not stopping it completely. Still having heartburn-did not get Protonix. Genitourinary (F) No hematuria, hesitancy, incontinence, vaginal bleeding, discharge or other problems with urination. Musculoskeletal Denies joint pain, swelling or redness. No decreased range of motion. Integumentary Denies chronic rashes, inflammation, ulcerations or skin changes. Neurologic Denies headache, blurred vision, and no areas of focal weakness or numbness. Normal gait. No sensory problems. Psychiatric Denies insomnia, depression, cornelio or mood swings. Vital Signs: Performed on Aug 05, 2019 10:56 Height - 66.00 in Weight - 205.8 lbs (HIGH) BSA - 2.02 sq.m BMI - 33.22 (HIGH) Temperature - 97.3 F (LOW) Pulse - 84 /min Respiration - 20 /min BP - 120/66 mm(hg) O2 Sat - 99 % Pain - 0,1 - No physically strenuous activity, but ambulatory and able to carry out light or sedentary work (e.g. office work, light house work). (ECOG) Physical Examination: Constitutional Alert, oriented, no acute distress. Skin pink, warm and dry. Head Normocephalic; atraumatic. Eyes Conjunctivae and sclerae are clear and without icterus. Pupils are reactive and equal. ENMT No oral exudates, ulcers, masses, thrush or mucositis. Oropharynx clear. Tongue normal. Neck Supple without masses or thyromegaly. No jugular venous distension. Hematologic/Lymphatic No petechiae or purpura. No tender or palpable lymph nodes in the cervical or supraclavicular areas. Respiratory Lungs are clear to auscultation without rhonchi or wheezing. Cardiovascular Regular rate and rhythm of heart without clicks, gallops or rubs. She does have a soft systolic murmur. Abdomen Non-tender, non-distended, no masses or ascites. Good bowel sounds noted in all quads. No guarding or rebound tenderness. No pulsatile masses. Back/Spine Non-tender to palpation. Extremities No visible deformities, no cyanosis, clubbing or edema. Musculoskeletal No tenderness or swelling, normal range of motion without obvious weakness. Integumentary No rashes or lesions. Neurologic No sensory or motor deficits, normal cerebellar function, normal gait. Psychiatric Alert and oriented times three. Coherent speech. Verbalizes understanding of our discussions today. Laboratory:Test performed on Aug 05, 2019 09:31 Sodium 133 mmol/L Potassium 3.9 mmol/L Chloride 94 mmol/L CO2 25 mmol/L Anion Gap 17.9 BUN 14 mg/dL Creatinine 1.0 mg/dL Cr Clearance (Est) 72.0300 mL/min Glucose 173 mg/dL Calcium 9.7 mg/dL Protein, Total 7.2 g/dL Albumin 3.5 g/dL Globulin 3.7 g/dL Bilirubin, Total 0.6 mg/dL ALT (SGPT) 12 U/L AST (SGOT) 14 U/L Alkaline Phosphatase 124 IU/L WBC 2.8 10 3/uL RBC 3.51 10 6/uL HGB 10.2 g/dL HCT 31.6 % MCV 90.0 fL MCH 29.1 pg MCHC 32.3 g/dL RDW 13.4 % Platelet Count 109 10 3/cmm MPV 9.6 fL Neutrophils 2.1 10 3/uL Lymphocytes 0.3 10 3/uL Monocytes 0.4 10 3/uL Eosinophils 0.1 10 3/uL Basophils 0.0 10 3/uL Neutrophil % 74.5 % Lymphocyte % 9.2 % Monocyte % 12.4 % Eosinophil % 2.8 % Basophils % 0.0 % Test performed on Jul 22, 2019 10:30 Manual Lymphocytes 13.4 % Manual Monocytes 7.4 % Manual Eosinophils 1.3 % Manual Basophils 0.5 % NRBCs 0.0 /100 WBC Impression: 1. 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 2. On 06/04/2019 she underwent exam under anesthesia with cervical biopsy, cystoscopy with biopsy of the bladder, and rigid proctoscopy to 15 cm. Her other medical illnesses include: 3. Hypertension. 4. Type 2 diabetes. 5. Hypothyroidism. 6. Chronic anxiety. She began radiation concurrently with weekly cisplatin chemotherapy on 07/15/2019. She had some nausea and fatigue with the initial chemotherapy treatment, but she was able to tolerate it with acceptable toxicity, and she continued with her week to cisplatin infusion on 07/22/2019. Since then there has been some further decline in her energy/activity tolerance, to the point that she required assistance with her trailer rental clerk. She was able to get assistance through Medicaid for this. She has had a significant drop in her blood counts from week 3 to week for. She is having persistent diarrhea although it is no worse than what it has been it is still there. She is otherwise tolerating the treatment well. Plan: 1. Hold week for cisplatin. She had significant drop in her white blood cells and platelets. Her ANC week 3 was 6100 it is 2100 today. Her platelet count went from 152 last week to 109 this week. 2. We will plan to recheck her labs and treat her next week if labs are improved. 3. We will have her try Lomotil as directed for diarrhea. She is aware she may need to alternate it with the Imodium. She is also instructed to let us know if that is not improving her diarrhea as we may have to add Questran powder. 4. She did not get the Protonix Dr. Downey had prescribed last week so we will send that in today as well. 5. Today's labs reviewed in detail and discussed with Ms. Raines and a copy was given to her. WBC 2.8, hemoglobin 10.2, platelets 109 and ANC is 2100 potassium 3.9 creatinine 1.0 and LFTs are normal. 6. We will plan to see her back in 1 week with a CBC CMP for consideration of week for cisplatin. 7. Mrs. Shields was instructed to contact us in the interim should questions or problems arise. Signed By: Sesar Breen-, AOCNP Gato Downey MD <<Signature on File>>
--- NOTE | 2019-08-06 12:05 | ONCRAD TMN_ITS ---
Radiation Oncology Weekly Treatment Management Patient: Sharon Sotelo MR#: [id number] : 1945> Age: 74> Sex: Female Dictated by: Dr. Eligio Sr Date of Service: 08/06/2019 Referring Physician(s) : Dr. Aguilar Ybarra Primary Diagnosis: C53.9 - Malignant neoplasm of cervix uteri, unspecified, diagnosed 06/21/2019 (Active) Stage EVARISTO, T4, N1, M0 Radiotherapy to date: Course: Pelvis 2019, Treatment Site: Pelvis 45Gy, Ref. ID: [id number], Energy: 15X/6X, Dose/Fx (cGy): 180, #Fx: 16 , Dose Correction (cGy): 0, Total Dose (cGy): 2,880, Start Date: 07/15/2019, Elapsed Days: Current Complaints/Interval History: Constitutional Complains of moderate fatigue. Denies lack of appetite, fever and night sweats. Integumentary No redness to the area of treatment Gastrointestinal Complains of abdominal pain that is intermittent which is generalized / diffuse in nature. Complains of persistent diarrhea which is characterized as loose, watery. Complains of heartburn / dyspepsia. Denies melena / GI bleeding, nausea and vomiting. Genitourinary (F) Complains of nocturia gets up about 3 times per night. Denies dysuria, frequency, urgency, and vaginal discharge / spotting. Current Medications: Aloxi, aLPRAZolam, aLPRAZolam, ativan, cISplatin, dexamethasone, dexamethasone Sodium Phosphate, emend, furosemide, hYDROcodone-Acetaminophen, hYDROcodone-Acetaminophen, levothyroxine Sodium, lisinopril-hydroCHLOROthiazide, lomotil, lORazepam, lORazepam, magnesium Sulfate, metFORMIN HCl, potassium Chloride, prochlorperazine Maleate, prochlorperazine Maleate, protonix. Allergies: Penicillins. Vital Signs: Performed on 08/06/2019 10:20 AM BMI - 32.927 kg/m2 (high), Height - 66.00 in, Weight - 204.0 lbs, Temperature - 97.7 f, Pulse - 80, Respiration - 18, O2 Sat - 96 %, Pain - 0 and BP - 121/ 72 mm(hg). Physical Exam: Appears stable, no skin erythema or desquamation. Performance Status: 1 - No physically strenuous activity, but ambulatory and able to carry out light or sedentary work (e.g. office work, light house work). (ECOG) Lab: Test performed on 08/05/2019 9:31 AM WBC - 2.8 10 3/ul (low), RBC - 3.51 10 6/ul (low), HGB - 10.2 g/dl (low), HCT - 31.6 % (low), Platelet Count - 109 10 3/cmm (low), Lymphocytes - 0.3 10 3/ul (low), Sodium - 133 mmol/l (low), Chloride - 94 mmol/l (low), Creatinine - 1.0 mg/dl (high), Glucose - 173 mg/dl (high) and Alkaline Phosphatase - 124 iu/l (high). Imaging: No new diagnostic imaging was performed since the last weekly treatment visit. All radiation therapy related imaging (including but not limited to CBCT generated images) was reviewed. Appropriate changes, if any, were made to assure accurate target localization. Impression/Plan: Tolerating treatment well with expected side effects. Continue treatment as planned. Continue Imodium prn diarrhea. Ordered referral to [facility] for HDR brachytherapy. Erika will work on the referral. CPT: 26288 Signed by: Dr. Eligio Sr>08/06/2019 12:04:10 PM <<Signature on File>>
[2019-08-12] MEDS: sodium chloride 0.9% 250 ML 75 ML IV (10:22)
[2019-08-12 11:20] LABS: Basophils % 0.5 %; Eosinophils # 0.1 10^3/uL (0.0-0.8); Eosinophils % 2.3 %; Hematocrit 30.9 % (37.0-47.0); Lymphocytes # 0.3 10^3/uL (0.8-4.8); Lymphocytes % 13.8 %; Mean Corpuscular HGB Conc 32.4 g/dL (30.0-36.0); Mean Corpuscular Hemoglobin 29.2 pg (28.0-34.0); Mean Corpuscular Volume 90.4 fL (81-99); Mean Platelet Volume 9.1 fL (7.4-10.4); Monocytes # 0.2 10^3/uL (0.2-0.9); Monocytes % 10.1 %; Neutrophils # 1.6 10^3/uL (1.8-7.7); Neutrophils % 72.8 %; Nucleated Red Blood Cells % 0 %; Platelet Count 140 10^3/cmm (130-400); Red Blood Count 3.42 10^6/uL (4.1-5.3); Red Cell Distribution Width 14.7 % (12.1-15.1); White Blood Count 2.2 10^3/uL (4.0-10.0)
[2019-08-12 11:47] LABS: Alanine Aminotransferase 10 U/L (0-33); Alkaline Phosphatase 140 IU/L (35-105); Anion Gap 18.9 (5-19); Aspartate Amino Transferase 16 U/L (0-32); Blood Urea Nitrogen 18 mg/dL (8-23); Calcium 10.1 mg/dL (8.5-10.5); Carbon Dioxide 24 mmol/L (22-29); Chloride 93 mmol/L (98-107); Globulin 3.7 g/dL (1.3-4.6); Glucose 176 mg/dL (65-115); Potassium 3.9 mmol/L (3.5-5.1); Sodium 132 mmol/L (136-145); Total Bilirubin 0.5 mg/dL (0.15-1.2); Total Protein 7.7 g/dL (6.6-8.7)
[2019-08-12] MEDS: FUROsemide 10 mg/mL SDV 2mL 20 MG IV (14:02)
[2019-08-12] MEDS: potassium chloride 20 MEQ in sodium chloride 0.9% 500 ML 250 MEQ IV (14:05)
--- NOTE | 2019-08-12 15:48 | ONC FU_ITS ---
[facility] Patient Note Patient: Sharon Sotelo Unit #: [id number]: 1945 Dictated By: Sesar BreenDate of Visit: Aug 12, 2019 Onc MED Follow-Up/Prog Note Chief Complaint: Cervical cancer. 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 On 05/03/2019 she had presented to the emergency room with pain in the left lower quadrant/left flank area and difficulty voiding. Her CT abdomen/pelvis showed a soft tissue mass which was involving the left superior lateral aspect of the urinary bladder and was contiguous with the cervix. It measured at least 4 x 4.9 x 5.8 cm. There was associated ureterovesical junction obstruction and moderate left hydronephrosis. There was associated adenopathy including a left inferior pelvic lymph node measuring 1 x 1.5 cm, a left para-aortic lymph node measuring 1.4 cm, a common iliac lymph node measuring 1.1 cm, and bilateral external iliac lymph nodes measuring up to 2.1 x 4.2 cm on the right and 1 x 1.7 cm on the left. She was referred to Dr. Ybarra in [place]. On 06/04/2019 she underwent exam under anesthesia with cervical biopsy, cystoscopy with biopsy, and rigid proctoscopy to 15 cm. Her tumor appeared to be fixed to the left pelvic sidewall and there was noted to be right-sided parametrial disease. On the cystoscopy the tumor did appear to be involving the bladder. The cervical biopsy and the bladder biopsy both showed poorly differentiated squamous cell carcinoma. She was recommended to undergo chemoradiation. Her other medical illnesses include hypertension, type 2 diabetes, and hypothyroidism. She also has chronic anxiety. She is a non-smoker. INTERIM HISTORY: She began radiation concurrently with weekly cisplatin chemotherapy on 07/15/2019. She experienced no acute toxicity with her initial infusion of cisplatin. She was then able to continue with her week 2 treatment on 07/22/2019. Ms. Raines is here today for follow-up and consideration of week for cisplatin. She has completed 3 weeks with no problems at this point. Her week 4 was delayed last week due to persistent diarrhea and a significant drop in her blood counts-ANC dropped from 6100 on week 3 to 2100 week 4. She had had persistent diarrhea but had not tried Lomotil. She was prescribed Lomotil. She states the diarrhea has stopped with the Lomotil. She denies any fever or chills or signs of infection. She denies any new pain. Her appetite is good and her energy is good. She denies any vaginal bleeding; bladder complaints or constipation. She denies any new neuropathy symptoms. She states she feels pretty good overall. She has an appointment in [place] for consultation with the radiation oncologist for implants post chemoradiation. Her ECOG is 1. Past Medical History: Anxiety Hyperlipidemia Hypertension Type II diabetes Past Surgical History: Attempted placement of PowerPort venous access device in 2019 Exam under anesthesia with cervical biopsy, rigid proctoscopy to 15 cm, and cystoscopy in 2019 Allergies: Penicillins Medications: ALPRAZolam 1 (0.25 mg) Tablet Oral daily HYDROcodone-Acetaminophen 1 (7.5-325 mg) Tablet Oral q 6 hours PRN Levothyroxine Sodium 1 (150 mcg) Tablet Oral daily Lisinopril-hydroCHLOROthiazide 1 (20-25 mg) Tablet Oral daily LORazepam 1 Tablet (of 1 mg) Oral t.i.d. PRN metFORMIN HCl 2 Tablet (of 500 mg) Oral daily Prochlorperazine Maleate 1 Tablet (of 10 mg) Oral q 4 hours PRN Family History: Ms. Sotelo's mother is . Ms. Sotelo's father is . Ms. Sotelo has 2 sisters: 2 . Father had brain aneurysm. Mother of heart attack at age 74. He had 2 sisters who from breast cancer and a neice (one of their daughters) also from breast cancer. Social History: Ms. Sotelo is single and she is a disabled. Ms. Sotelo has never smoked. She has no history of drinking. She is a non-smoker. She does not drink alcohol. Review Of Symptoms: Constitutional Denies fevers, chills, night sweats, excessive fatigue or weight loss. Allergic/Immunologic No reactions. Eyes Denies significant visual changes. No diplopia. No amaurosis. ENMT Denies changes in hearing, sore throat, mouth sores, difficulty or changes in swallowing ability, and/or sinus drainage. Endocrine No diabetes, thyroid disease or hormone replacement. Denies hot flashes or night sweats. Hematologic/Lymphatic Denies easy bruising or bleeding. The patient denies any tender or palpable lymph nodes. Respiratory Denies dyspnea on exertion, chest pain, cough or hemoptysis. Denies orthopnea. Cardiovascular Denies anginal chest pain, palpitations or orthopnea. Gastrointestinal Denies nausea, vomiting, GI bleeding, or constipation. Genitourinary (F) No hematuria, hesitancy, incontinence, vaginal bleeding, discharge or other problems with urination. Musculoskeletal Denies joint pain, swelling or redness. No decreased range of motion. Integumentary Denies chronic rashes, inflammation, ulcerations or skin changes. Neurologic Denies headache, blurred vision, and no areas of focal weakness or numbness. Normal gait. No sensory problems. Psychiatric Denies insomnia, depression, cornelio or mood swings. Vital Signs: Performed on Aug 12, 2019 11:06 Height - 66.00 in Weight - 200.8 lbs (LOW) BSA - 2.00 sq.m BMI - 32.41 (HIGH) Temperature - 97.6 F (LOW) Pulse - 76 /min Respiration - 18 /min BP - 153/77 mm(hg) (HIGH) O2 Sat - 96 % Pain - 0,1 - No physically strenuous activity, but ambulatory and able to carry out light or sedentary work (e.g. office work, light house work). (ECOG) Physical Examination: Constitutional Alert, oriented, no acute distress. Skin pink, warm and dry. Head Normocephalic; atraumatic. Eyes Conjunctivae and sclerae are clear and without icterus. Pupils are reactive and equal. ENMT No oral exudates, ulcers, masses, thrush or mucositis. Oropharynx clear. Tongue normal. Neck Supple without masses or thyromegaly. No jugular venous distension. Hematologic/Lymphatic No petechiae or purpura. No tender or palpable lymph nodes in the cervical or supraclavicular areas. Respiratory Lungs are clear to auscultation without rhonchi or wheezing. Cardiovascular Regular rate and rhythm of heart without clicks, gallops or rubs. She does have a soft systolic murmur. Abdomen Non-tender, non-distended, no masses or ascites. Good bowel sounds noted in all quads. No guarding or rebound tenderness. No pulsatile masses. Back/Spine Non-tender to palpation. Extremities No visible deformities, no cyanosis, clubbing or edema. Musculoskeletal No tenderness or swelling, normal range of motion without obvious weakness. Integumentary No rashes or lesions. Neurologic No sensory or motor deficits, normal cerebellar function, normal gait. Psychiatric Alert and oriented times three. Coherent speech. Verbalizes understanding of our discussions today. Laboratory:Test performed on Aug 12, 2019 10:20 Sodium 132 mmol/L Potassium 3.9 mmol/L Chloride 93 mmol/L CO2 24 mmol/L Anion Gap 18.9 BUN 18 mg/dL Creatinine 1.2 mg/dL Cr Clearance (Est) 60.0200 mL/min Glucose 176 mg/dL Calcium 10.1 mg/dL Protein, Total 7.7 g/dL Albumin 4.0 g/dL Globulin 3.7 g/dL Bilirubin, Total 0.5 mg/dL ALT (SGPT) 10 U/L AST (SGOT) 16 U/L Alkaline Phosphatase 140 IU/L WBC 2.2 10 3/uL RBC 3.42 10 6/uL HGB 10.0 g/dL HCT 30.9 % MCV 90.4 fL MCH 29.2 pg MCHC 32.4 g/dL RDW 14.7 % Platelet Count 140 10 3/cmm MPV 9.1 fL Neutrophils 1.6 10 3/uL Lymphocytes 0.3 10 3/uL Monocytes 0.2 10 3/uL Eosinophils 0.1 10 3/uL Basophils 0.0 10 3/uL Neutrophil % 72.8 % Lymphocyte % 13.8 % Monocyte % 10.1 % Eosinophil % 2.3 % Basophils % 0.5 % Test performed on Jul 22, 2019 10:30 Manual Lymphocytes 13.4 % Manual Monocytes 7.4 % Manual Eosinophils 1.3 % Manual Basophils 0.5 % NRBCs 0.0 /100 WBC Impression: 1. 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 2. On 06/04/2019 she underwent exam under anesthesia with cervical biopsy, cystoscopy with biopsy of the bladder, and rigid proctoscopy to 15 cm. Her other medical illnesses include: 3. Hypertension. 4. Type 2 diabetes. 5. Hypothyroidism. 6. Chronic anxiety. She began radiation concurrently with weekly cisplatin chemotherapy on 07/15/2019. She had some nausea and fatigue with the initial chemotherapy treatment, but she was able to tolerate it with acceptable toxicity, and she continued with her week to cisplatin infusion on 07/22/2019. Since then there has been some further decline in her energy/activity tolerance, to the point that she required assistance with her community health outreach worker. She was able to get assistance through Medicaid for this. She has had a significant drop in her blood counts from week 3 to week for. She is having persistent diarrhea although it is no worse than what it has been it is still there. She is otherwise tolerating the treatment well. Plan: 1. Proceed with week 5 Cisplatin (after missing week 4). 2. She will need Neupogen 480 mcg for possibly up to 3 days weekly between chemotherapies for chemoinduced neutropenia. Without the Neupogen, her treatment will not be completed as per standard of care and could overall effect her treatment outcome. Her ANC is 1600 today compared to 6100 on week 3 3. We will have her continue Lomotil as directed for diarrhea. She is aware she may need to alternate it with the Imodium. She is also instructed to let us know if that is not improving her diarrhea as we may have to add Questran powder. 4. Today's labs reviewed in detail and discussed with Ms. Raines and a copy was given to her. WBC 2.2, hemoglobin 10.0, platelets 140 and ANC is 1600. 5. We will plan to see her back in 1 week with a CBC CMP for consideration of week 6 (total of 5 weeks if treated) for cisplatin. 6. Mrs. Shields was instructed to contact us in the interim should questions or problems arise. She was instructed to call us if she has any signs or symptoms of infection. Signed By: Sesar Breen-, [facility] Gato Downey MD <<Signature on File>>
--- NOTE | 2019-08-13 10:54 | ONCRAD TMN_ITS ---
Radiation Oncology Weekly Treatment Management Patient: Sharon Sotelo MR#: [id number] : 1945> Age: 74> Sex: Female Dictated by: Dr. Eligio Sr Date of Service: 08/13/2019 Referring Physician(s) : Dr. Aguilar Ybarra Primary Diagnosis: C53.9 - Malignant neoplasm of cervix uteri, unspecified, Diagnosed 06/21/2019 (Active) Stage EVARISTO, T4, N1, M0 Radiotherapy to date: Course: Pelvis 2019, Treatment Site: Pelvis 45Gy, Ref. ID: [id number], Energy: 15X/6X, Dose/Fx (cGy): 180, #Fx: , Dose Correction (cGy): 0, Total Dose (cGy): 3,780, Start Date: 07/15/2019, Elapsed Days: Current Complaints/Interval History: Constitutional Complains of moderate fatigue. Denies lack of appetite, fever and night sweats. Integumentary Has no irritation to the area of treatment Gastrointestinal Denies abdominal pain, diarrhea, heartburn / dyspepsia, nausea and vomiting. Genitourinary (F) Complains of nocturia gets up 2 to 3 times per night. Denies dysuria, frequency, urgency, vaginal discharge / bleeding and vaginal spotting. Current Medications: Aloxi, aLPRAZolam, aLPRAZolam, ativan, cISplatin, dexamethasone, dexamethasone Sodium Phosphate, emend, furosemide, hYDROcodone-Acetaminophen, hYDROcodone-Acetaminophen, levothyroxine Sodium, lisinopril-hydroCHLOROthiazide, lomotil, lORazepam, lORazepam, magnesium Sulfate, metFORMIN HCl, neupogen, potassium Chloride, prochlorperazine Maleate, prochlorperazine Maleate, protonix. Allergies: Penicillins. Vital Signs: Performed on 08/13/2019 10:05 AM Height - 66.00 in, Temperature - 98.1 f (low), Pulse - 74 /min, Respiration - 18 /min, O2 Sat - 98 %, Pain - 0, Fatigue - 0, BP - 152/ 77 mm(hg)(high/), Physical Exam: Appears stable, no skin erythema or desquamation. Performance Status: 1 - No physically strenuous activity, but ambulatory and able to carry out light or sedentary work (e.g. office work, light house work). (ECOG) Lab: Test performed on 08/12/2019 10:20 AM WBC - 2.2 10 3/ul (low), RBC - 3.42 10 6/ul (low), HGB - 10.0 g/dl (low), HCT - 30.9 % (low), Neutrophils - 1.6 10 3/ul (low), Lymphocytes - 0.3 10 3/ul (low), Sodium - 132 mmol/l (low), Chloride - 93 mmol/l (low), Creatinine - 1.2 mg/dl (high), Cr Clearance (Est) - 60.0200 ml/min (low), Glucose - 176 mg/dl (high) and Alkaline Phosphatase - 140 iu/l (high). Imaging: No new diagnostic imaging was performed since the last weekly treatment visit. All radiation therapy related imaging (including but not limited to CBCT generated images) was reviewed. Appropriate changes, if any, were made to assure accurate target localization. Impression/Plan: Tolerating treatment well with expected side effects. Continue treatment as planned. Will see rad onc in [place] to discuss about HDR brachytherapy tomorrow. CPT: 63193 Signed by: Dr. Eligio Sr>08/13/2019 10:53:04 AM <<Signature on File>>
[2019-08-15 10:05] LABS: Basophils % 0.3 %; Eosinophils % 0.6 %; Hematocrit 29.7 % (37.0-47.0); Hemoglobin 9.5 g/dL (11.5-15.3); Lymphocytes # 0.3 10^3/uL (0.8-4.8); Lymphocytes % 8.1 %; Mean Corpuscular Hemoglobin 28.2 pg (28.0-34.0); Mean Corpuscular Volume 88.1 fL (81-99); Mean Platelet Volume 9.2 fL (7.4-10.4); Monocytes # 0.4 10^3/uL (0.2-0.9); Monocytes % 11.4 %; Neutrophils # 2.2 10^3/uL (1.8-7.7); Neutrophils % 66.6 %; Nucleated Red Blood Cells % 0 %; Platelet Count 142 10^3/cmm (130-400); Red Blood Count 3.37 10^6/uL (4.1-5.3); Red Cell Distribution Width 15.4 % (12.1-15.1); White Blood Count 3.3 10^3/uL (4.0-10.0)
[2019-08-15 10:38] LABS: Slide Review Slide Review Perform
[2019-08-20] MEDS: sodium chloride 0.9% 1,000 ML 999 ML IV (11:20)
--- NOTE | 2019-08-20 11:31 | ONCRAD TMN_ITS ---
Radiation Oncology Weekly Treatment Management Patient: Sharon Sotelo MR#: [id number] : 1945> Age: 74> Sex: Female Dictated by: Dr. Eligio Sr Date of Service: 08/20/2019 Referring Physician(s) : Dr. Aguilar Ybarra Primary Diagnosis: C53.9 - Malignant neoplasm of cervix uteri, unspecified, Diagnosed 06/21/2019 (Active) Stage EVARISTO, T4, N1, M0 Radiotherapy to date: Course: Pelvis 2019, Treatment Site: Pelvis 45Gy, Ref. ID: [id number], Energy: 15X/6X, Dose/Fx (cGy): 180, #Fx: , Dose Correction (cGy): 0, Total Dose (cGy): 4,140, Start Date: 07/15/2019, Elapsed Days: 36 Current Complaints/Interval History: Constitutional Complains of a poor appetite due to severe nausea. Complains of mild fatigue. Complains of change in weight down 11 lb.s since last OTV due to having severe nausea and vomiting the past 4 days. Denies fever and night sweats. Integumentary Has no irritation to the area of treatment Gastrointestinal Complains of severe nausea and vomiting. Denies abdominal pain, constipation, diarrhea, heartburn / dyspepsia and melena / GI bleeding. Genitourinary (F) Complains of nocturia about 3 times per night. Denies dysuria, frequency, urgency, vaginal discharge / bleeding and vaginal spotting. Current Medications: Aloxi, aLPRAZolam, aLPRAZolam, ativan, cISplatin, dexamethasone, dexamethasone Sodium Phosphate, emend, furosemide, hYDROcodone-Acetaminophen, hYDROcodone-Acetaminophen, levothyroxine Sodium, lisinopril-hydroCHLOROthiazide, lomotil, lORazepam, lORazepam, magnesium Sulfate, metFORMIN HCl, neupogen, potassium Chloride, prochlorperazine Maleate, prochlorperazine Maleate, protonix. Allergies: Penicillins. Vital Signs: Performed on 08/20/2019 10:18 AM BMI - 31.28 kg/m2 (high), Height - 66.00 in, Weight - 193.8 lbs, Temperature - 97.3 f, Pulse - 103, Respiration - 20, O2 Sat - 98 %, Pain - 0 and BP - 120/ 75 mm(hg). Physical Exam: Appears stable, no skin erythema or desquamation. Performance Status: 2 - Ambulatory/capable of all self-care, unable to perform any work activities. Up and about more than 50% of waking hours. (ECOG) Lab: Test performed on 08/12/2019 10:20 AM WBC - 2.2 10 3/ul (low), RBC - 3.42 10 6/ul (low), HGB - 10.0 g/dl (low), HCT - 30.9 % (low), Neutrophils - 1.6 10 3/ul (low), Lymphocytes - 0.3 10 3/ul (low), Sodium - 132 mmol/l (low), Chloride - 93 mmol/l (low), Creatinine - 1.2 mg/dl (high), Cr Clearance (Est) - 60.0200 ml/min (low), Glucose - 176 mg/dl (high) and Alkaline Phosphatase - 140 iu/l (high). Imaging: No new diagnostic imaging was performed since the last weekly treatment visit. All radiation therapy related imaging (including but not limited to CBCT generated images) was reviewed. Appropriate changes, if any, were made to assure accurate target localization. Impression/Plan: Tolerating treatment well with expected side effects. Her nausea and vomiting are now under control by anti-nausea medication. Continue treatment as planned. CPT: 02982 Signed by: Dr. Eligio Sr>08/20/2019 11:30:21 AM <<Signature on File>>
[2019-08-20 11:50] LABS: Basophils % 0.3 %; Eosinophils % 0.3 %; Hematocrit 28.9 % (37.0-47.0); Hemoglobin 9.2 g/dL (11.5-15.3); Lymphocytes # 0.3 10^3/uL (0.8-4.8); Lymphocytes % 8.1 %; Mean Corpuscular HGB Conc 31.8 g/dL (30.0-36.0); Mean Corpuscular Hemoglobin 29.5 pg (28.0-34.0); Mean Corpuscular Volume 92.6 fL (81-99); Mean Platelet Volume 9.3 fL (7.4-10.4); Monocytes # 0.4 10^3/uL (0.2-0.9); Monocytes % 11.2 %; Neutrophils # 2.6 10^3/uL (1.8-7.7); Neutrophils % 74.6 %; Nucleated Red Blood Cells % 0 %; Platelet Count 142 10^3/cmm (130-400); Red Blood Count 3.12 10^6/uL (4.1-5.3); Red Cell Distribution Width 15.9 % (12.1-15.1); White Blood Count 3.5 10^3/uL (4.0-10.0)
[2019-08-20 12:06] LABS: Slide Review Slide Review Perform
[2019-08-20 12:30] LABS: Alanine Aminotransferase 11 U/L (0-33); Albumin Level 3.6 g/dL (3.5-5.2); Alkaline Phosphatase 170 IU/L (35-105); Anion Gap 18.2 (5-19); Aspartate Amino Transferase 15 U/L (0-32); Blood Urea Nitrogen 14 mg/dL (8-23); Calcium 9.9 mg/dL (8.5-10.5); Carbon Dioxide 23 mmol/L (22-29); Chloride 98 mmol/L (98-107); Globulin 3.6 g/dL (1.3-4.6); Glucose 142 mg/dL (65-115); Magnesium 1.9 mg/dL (1.7-2.3); Potassium 3.2 mmol/L (3.5-5.1); Sodium 136 mmol/L (136-145); Thyroid Stimulating Hormone 2.23 uIU/mL (0.27-4.20); Total Bilirubin 0.6 mg/dL (0.15-1.2); Total Protein 7.2 g/dL (6.6-8.7)
[2019-08-27] MEDS: sodium chloride 0.9% 250 ML 25 ML IV (10:24)
[2019-08-27 10:39] LABS: Basophils % 0.4 %; Hemoglobin 7.8 g/dL (11.5-15.3); Lymphocytes # 0.2 10^3/uL (0.8-4.8); Lymphocytes % 7.8 %; Mean Corpuscular HGB Conc 32.5 g/dL (30.0-36.0); Mean Corpuscular Hemoglobin 28.9 pg (28.0-34.0); Mean Corpuscular Volume 88.9 fL (81-99); Mean Platelet Volume 9.3 fL (7.4-10.4); Monocytes # 0.4 10^3/uL (0.2-0.9); Neutrophils # 1.8 10^3/uL (1.8-7.7); Neutrophils % 75.4 %; Nucleated Red Blood Cells % 0 %; Platelet Count 195 10^3/cmm (130-400); Red Cell Distribution Width 18.3 % (12.1-15.1); White Blood Count 2.4 10^3/uL (4.0-10.0)
[2019-08-27 10:49] LABS: Alanine Aminotransferase 12 U/L (0-33); Albumin Level 3.9 g/dL (3.5-5.2); Alkaline Phosphatase 206 IU/L (35-105); Anion Gap 20.5 (5-19); Aspartate Amino Transferase 16 U/L (0-32); Blood Urea Nitrogen 15 mg/dL (8-23); Calcium 10.2 mg/dL (8.5-10.5); Carbon Dioxide 21 mmol/L (22-29); Chloride 93 mmol/L (98-107); Globulin 3.4 g/dL (1.3-4.6); Glucose 196 mg/dL (65-115); Potassium 3.5 mmol/L (3.5-5.1); Sodium 131 mmol/L (136-145); Total Bilirubin 0.6 mg/dL (0.15-1.2); Total Protein 7.3 g/dL (6.6-8.7)
[2019-08-27] MEDS: FUROsemide 10 mg/mL SDV 2mL 20 MG IV (15:02)
[2019-08-27] MEDS: potassium chloride 20 MEQ in sodium chloride 0.9% 500 ML 250 MEQ IV (15:05)
[2019-08-27 15:41] LABS: Ferritin 431 ng/mL (15-150); Iron 61 ug/dL (37-145); Percent Saturation 24.7 % (20-50); Total Iron Binding Capacity 246 mcg/dl; Unsaturated Iron Binding 185 ug/dL (112-347)
[2019-08-27 15:56] LABS: Vitamin B12 871 pg/mL (232-1245)
[2019-08-28] VITALS (7 sets, daily range): BP systolic 123–151; BP diastolic 68–71; PULSE 65–73; RESP 17–18; TEMP 36.1–36.4; O2SAT 96–99
[2019-08-28] MEDS: sodium chloride 0.9% 250 ML 999 ML IV (10:55)
--- NOTE | 2019-08-28 11:19 | ONCRAD TMN_ITS ---
Radiation Oncology Weekly Treatment Management Patient: Sharon Sotelo MR#: [id number] : 1945> Age: 74> Sex: Female Dictated by: Dr. Eligio Sr Date of Service: 08/28/2019 Referring Physician(s): Dr. Aguilar Ybarra Primary Diagnosis: C53.9 - Malignant neoplasm of cervix uteri, unspecified, Diagnosed 06/21/2019 (Active) Stage EVARISTO, T4, N1, M0 Radiotherapy to date: Course: Pelvis 2019, Treatment Site: Pelvis 45Gy, Ref. ID: [id number], Energy: 15X/6X, Dose/Fx (cGy): 180, #Fx: 25 / 25, Dose Correction (cGy): 0, Total Dose (cGy): 4,500, Start Date: 07/15/2019, End Date: 08/22/2019, Elapsed Days: 38 Pelvis 2019, Treatment Site: Pelvis 59.4Gy, Ref. ID: [id number], Energy: 15X/6X, Dose/Fx (cGy): 180, #Fx: 4 / 8, Dose Correction (cGy): 0, Total Dose (cGy): 720, Start Date: 08/23/2019, Elapsed Days: 5 Current Complaints/Interval History: Constitutional Complains of moderate fatigue and rigors / chills. Denies lack of appetite, fever, night sweats and change in weight. Integumentary No redness to the area of treatment Gastrointestinal Has diarrhea but controlled by Imodium. Denies abdominal pain, constipation, GI bleeding, nausea and vomiting. No rectal bleeding or irritation Genitourinary (F) Complains of nocturia gets up about 3 times per night. Denies dysuria, frequency and urgency. Current Medications: Acetaminophen, aler-Cap, aloxi, aLPRAZolam, aLPRAZolam, ativan, cISplatin, dexamethasone, dexamethasone Sodium Phosphate, emend, furosemide, hYDROcodone-Acetaminophen, hYDROcodone-Acetaminophen, levothyroxine Sodium, lisinopril-hydroCHLOROthiazide, lomotil, lORazepam, lORazepam, magnesium Sulfate, metFORMIN HCl, neupogen, potassium Chloride, prochlorperazine Maleate, prochlorperazine Maleate, protonix, sodium Chloride. Allergies: Penicillins. Vital Signs: Performed on 08/28/2019 10:05 AM BMI - 32.604 kg/m2 (high), Height - 66.00 in, Weight - 202.0 lbs, Temperature - 97.0 f, Pulse - 95, Respiration - 20, O2 Sat - 100 %, Pain - 0 and BP - 165/ 64 mm(hg)(high/low). Physical Exam: Appears stable, no skin erythema or desquamation. Performance Status: 2 - Ambulatory/capable of all self-care, unable to perform any work activities. Up and about more than 50% of waking hours. (ECOG) Lab: Test performed on 08/27/2019 10:24 AM WBC - 2.4 10 3/ul (low), RBC - 2.70 10 6/ul (low), HGB - 7.8 g/dl (low), HCT - 24.0 % (low), RDW - 18.3 % (high), Lymphocytes - 0.2 10 3/ul (low), Sodium - 131 mmol/l (low), Chloride - 93 mmol/l (low), CO2 - 21 mmol/l (low), Anion Gap - 20.5 (high), Creatinine - 1.1 mg/dl (high), Cr Clearance (Est) - 65.4800 ml/min (low), Glucose - 196 mg/dl (high) and Alkaline Phosphatase - 206 iu/l (high). Imaging: No new diagnostic imaging was performed since the last weekly treatment visit. All radiation therapy related imaging (including but not limited to CBCT generated images) was reviewed. Appropriate changes, if any, were made to assure accurate target localization. Impression/Plan: Tolerating treatment well with expected side effects. Continue Imodium prn diarrhea. Continue treatment as planned. She is going to receive blood transfusion today. CPT: 49825 Signed by: Dr. Eligio Sr>08/28/2019 11:18:25 AM <<Signature on File>>
[2019-08-28] MEDS: acetaminophen 325 mg Tablet 650 MG PO (12:10)
[2019-08-28] MEDS: diphenhydrAMINE 25 mg Capsule PO (12:12)
--- NOTE | 2019-08-30 10:33 | ONC FU_ITS ---
[facility] Browning Patient Note Patient: Sharon Sotelo Unit #: [id number]: 1945 Dictated By: Sesar BreenDate of Visit: Aug 27, 2019 Onc MED Follow-Up/Prog Note Chief Complaint: Cervical cancer. 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 On 05/03/2019 she had presented to the emergency room with pain in the left lower quadrant/left flank area and difficulty voiding. Her CT abdomen/pelvis showed a soft tissue mass which was involving the left superior lateral aspect of the urinary bladder and was contiguous with the cervix. It measured at least 4 x 4.9 x 5.8 cm. There was associated ureterovesical junction obstruction and moderate left hydronephrosis. There was associated adenopathy including a left inferior pelvic lymph node measuring 1 x 1.5 cm, a left para-aortic lymph node measuring 1.4 cm, a common iliac lymph node measuring 1.1 cm, and bilateral external iliac lymph nodes measuring up to 2.1 x 4.2 cm on the right and 1 x 1.7 cm on the left. She was referred to Dr. Ybarra in [place]. On 06/04/2019 she underwent exam under anesthesia with cervical biopsy, cystoscopy with biopsy, and rigid proctoscopy to 15 cm. Her tumor appeared to be fixed to the left pelvic sidewall and there was noted to be right-sided parametrial disease. On the cystoscopy the tumor did appear to be involving the bladder. The cervical biopsy and the bladder biopsy both showed poorly differentiated squamous cell carcinoma. She was recommended to undergo chemoradiation. Her other medical illnesses include hypertension, type 2 diabetes, and hypothyroidism. She also has chronic anxiety. She is a non-smoker. INTERIM HISTORY: She began radiation concurrently with weekly cisplatin chemotherapy on 07/15/2019. She experienced no acute toxicity with her initial infusion of cisplatin. She was then able to continue with her week 2 treatment on 07/22/2019. Ms. Raines is here today for follow-up and consideration of week for cisplatin. She has completed 4 weeks with no problems at this point. Her week 4 was delayed on August 05, 2019 due to persistent diarrhea and a significant drop in her blood counts-ANC dropped from 6100 on week 3 to 2100 week 4. She had had persistent diarrhea but had not tried Lomotil. She was prescribed Lomotil. She states the diarrhea has stopped with the Lomotil. She denies any fever or chills or signs of infection. She denies any new pain. Her appetite is good and her energy is good. She denies any vaginal bleeding; bladder complaints or constipation. She denies any new neuropathy symptoms. She states she feels pretty good overall. She has an appointment in [place] for consultation with the radiation oncologist for implants post chemoradiation. Her ECOG is 1. Past Medical History: Anxiety Hyperlipidemia Hypertension Type II diabetes Past Surgical History: Attempted placement of PowerPort venous access device in 2019 Exam under anesthesia with cervical biopsy, rigid proctoscopy to 15 cm, and cystoscopy in 2019 Allergies: Penicillins Medications: ALPRAZolam 1 (0.25 mg) Tablet Oral daily HYDROcodone-Acetaminophen 1 (7.5-325 mg) Tablet Oral q 6 hours PRN Levothyroxine Sodium 1 (150 mcg) Tablet Oral daily Lisinopril-hydroCHLOROthiazide 1 (20-25 mg) Tablet Oral daily LORazepam 1 Tablet (of 1 mg) Oral t.i.d. PRN metFORMIN HCl 2 Tablet (of 500 mg) Oral daily Prochlorperazine Maleate 1 Tablet (of 10 mg) Oral q 4 hours PRN Family History: Ms. Sotelo's mother is . Ms. Sotelo's father is . Ms. Sotelo has 2 sisters: 2 . Father had brain aneurysm. Mother of heart attack at age 74. He had 2 sisters who from breast cancer and a neice (one of their daughters) also from breast cancer. Social History: Ms. Sotelo is single and she is a disabled. Ms. Sotelo has never smoked. She has no history of drinking. She is a non-smoker. She does not drink alcohol. Review Of Symptoms: Constitutional Denies fevers, chills, night sweats, excessive fatigue or weight loss. Allergic/Immunologic No reactions. Eyes Denies significant visual changes. No diplopia. No amaurosis. ENMT Denies changes in hearing, sore throat, mouth sores, difficulty or changes in swallowing ability, and/or sinus drainage. Endocrine No diabetes, thyroid disease or hormone replacement. Denies hot flashes or night sweats. Hematologic/Lymphatic Denies easy bruising or bleeding. The patient denies any tender or palpable lymph nodes. Respiratory Denies dyspnea on exertion, chest pain, cough or hemoptysis. Denies orthopnea. Cardiovascular Denies anginal chest pain, palpitations or orthopnea. Gastrointestinal Denies nausea, vomiting, GI bleeding, or constipation. Has had intermittent diarrhea but resolved currently. Genitourinary (F) No hematuria, hesitancy, incontinence, vaginal bleeding, discharge or other problems with urination. Musculoskeletal Denies joint pain, swelling or redness. No decreased range of motion. Integumentary Denies chronic rashes, inflammation, ulcerations or skin changes. Neurologic Denies headache, blurred vision, and no areas of focal weakness or numbness. Normal gait. No sensory problems. Psychiatric Denies insomnia, depression, cornelio or mood swings. Vital Signs: ,2 - Ambulatory/capable of all self-care, unable to perform any work activities. Up and about more than 50% of waking hours. (ECOG) Physical Examination: Constitutional Alert, oriented, no acute distress. Skin pink, warm and dry. Head Normocephalic; atraumatic. Eyes Conjunctivae and sclerae are clear and without icterus. Pupils are reactive and equal. Neck Supple without masses or thyromegaly. No jugular venous distension. Hematologic/Lymphatic No petechiae or purpura. No tender or palpable lymph nodes in the cervical or supraclavicular areas. Respiratory Lungs are clear to auscultation without rhonchi or wheezing. Cardiovascular Regular rate and rhythm of heart without clicks, gallops or rubs. She does have a soft systolic murmur. Abdomen Non-tender, non-distended, no masses or ascites. Good bowel sounds noted in all quads. No guarding or rebound tenderness. No pulsatile masses. Back/Spine Non-tender to palpation. Extremities No visible deformities, no cyanosis, clubbing or edema. Musculoskeletal No tenderness or swelling, normal range of motion without obvious weakness. Integumentary No rashes or lesions. Neurologic No sensory or motor deficits, normal cerebellar function, in treatment recliner and gait not assessed. Psychiatric Alert and oriented times three. Coherent speech. Verbalizes understanding of our discussions today. Laboratory:Test performed on Aug 27, 2019 10:24 Ferritin 431 ng/mL Iron 61 ug/dL Sodium 131 mmol/L Vitamin B12 871 pg/mL Potassium 3.5 mmol/L Chloride 93 mmol/L CO2 21 mmol/L UIBC 185 ug/dL Anion Gap 20.5 BUN 15 mg/dL Creatinine 1.1 mg/dL Cr Clearance (Est) 65.4800 mL/min Glucose 196 mg/dL Calcium 10.2 mg/dL Protein, Total 7.3 g/dL Albumin 3.9 g/dL Globulin 3.4 g/dL Bilirubin, Total 0.6 mg/dL ALT (SGPT) 12 U/L AST (SGOT) 16 U/L Alkaline Phosphatase 206 IU/L WBC 2.4 10 3/uL RBC 2.70 10 6/uL HGB 7.8 g/dL HCT 24.0 % MCV 88.9 fL MCH 28.9 pg MCHC 32.5 g/dL RDW 18.3 % Platelet Count 195 10 3/cmm MPV 9.3 fL Neutrophils 1.8 10 3/uL Lymphocytes 0.2 10 3/uL Monocytes 0.4 10 3/uL Eosinophils 0.0 10 3/uL Basophils 0.0 10 3/uL Neutrophil % 75.4 % Lymphocyte % 7.8 % Monocyte % 16.0 % Eosinophil % 0.0 % Basophils % 0.4 % Test performed on Aug 20, 2019 11:33 Magnesium 1.9 mg/dL TSH 2.23 uIU/mL CBC Slide Review Slide Review Perform SLIDE REVIEW AGREES WITH AUTOMATED RESULTS ST Impression: 1. 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 2. On 06/04/2019 she underwent exam under anesthesia with cervical biopsy, cystoscopy with biopsy of the bladder, and rigid proctoscopy to 15 cm. Her other medical illnesses include: 3. Hypertension. 4. Type 2 diabetes. 5. Hypothyroidism. 6. Chronic anxiety. She began radiation concurrently with weekly cisplatin chemotherapy on 07/15/2019. She had some nausea and fatigue with the initial chemotherapy treatment, but she was able to tolerate it with acceptable toxicity, and she continued with her week to cisplatin infusion on 07/22/2019. 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 She was able to get assistance through Medicaid for this. She has had a significant drop in her blood counts from week 3 to week for. She is having persistent diarrhea although it is no worse than what it has been it is still there. She is otherwise tolerating the treatment well. Plan: 1. Proceed with week 5 Cisplatin. 2. She will need Neupogen 480 mcg for possibly up to 3 days weekly between chemotherapies for chemoinduced neutropenia. Without the Neupogen, her treatment will not be completed as per standard of care and could overall effect her treatment outcome. Her ANC is 1800 today compared to 2600 on week 4. 3. We will have her continue Lomotil as directed for diarrhea. She is aware she may need to alternate it with the Imodium. She is also instructed to let us know if that is not improving her diarrhea as we may have to add Questran powder. 4. Today's labs reviewed in detail and discussed with Ms. Raines and a copy was given to her. WBC 2.4, hemoglobin 7.8, platelets 195 and ANC is 1800. Her alk phos was 206 which is most likely related to her previous Neupogen injections. 5. We will plan to see her back in 1 week with a CBC CMP for consideration of week 6 for cisplatin. 6. Mrs. Shields was instructed to contact us in the interim should questions or problems arise. She was instructed to call us if she has any signs or symptoms of infection. She may hae supportive care as needed in the interim. Signed By: Sesar Breen-, [facility] CENTERDede Downey MD <<Signature on File>>
== END 2019-08-31 23:59 | disposition home or self-care (01) ==
LOC: ONCMED 05:43
PROVIDERS: Internal Medicine Medical Oncology; Nurse Practitioner; Family Provider Family Medicine; PCP Family Medicine; Visit Provider Radiology Radiation Oncology
DX: Z51.0 Encounter for antineoplastic radiation therapy (principal); Z51.11 Encounter for antineoplastic chemotherapy; C53.9 Malignant neoplasm of cervix uteri, unspecified; C77.8 Secondary and unspecified malignant neoplasm of lymph nodes of multiple regions; C79.11 Secondary malignant neoplasm of bladder; D70.1 Agranulocytosis secondary to cancer chemotherapy; K52.1 Toxic gastroenteritis and colitis; T45.1X5A Adverse effect of antineoplastic and immunosuppressive drugs, initial encounter; E86.0 Dehydration; I10 Essential (primary) hypertension; E11.9 Type 2 diabetes mellitus without complications; E03.9 Hypothyroidism, unspecified; F41.9 Anxiety disorder, unspecified; E78.5 Hyperlipidemia, unspecified; Z79.891 Long term (current) use of opiate analgesic; Z79.84 Long term (current) use of oral hypoglycemic drugs
CPT/HCPCS: 36415; 36430; 77280; 77300; 77336; 77338; 77386; 80053; 82607; 82728; 83540; 83550; 83735; 84443; 85025; 86850; 86900; 86920; 96361; 96365; 96366; 96367; 96372; 96375; 96401; 96413; 99214; J1100; J1442; J1453; J1940; J2405; J2469; J3475; J3480; J3490; J7030; J7040; J7050; J9060; P9016

== ENCOUNTER 2019-09-18 08:00 | Outpatient (CLI) | payer MEDICARE, MEDICAID, SELFPAY ==
[2019-09-18] VITALS (10 sets, daily range): BP systolic 109–152; BP diastolic 52–73; PULSE 85–102; RESP 16; TEMP 36.4–37; O2SAT 96–97
[2019-09-18 09:05] LABS: Basophils % 0.5 %; Eosinophils % 0.5 %; Lymphocytes # 0.3 10^3/uL (0.8-4.8); Lymphocytes % 17.1 %; Mean Corpuscular HGB Conc 33.3 g/dL (30.0-36.0); Mean Corpuscular Hemoglobin 31.2 pg (28.0-34.0); Mean Corpuscular Volume 93.7 fL (81-99); Mean Platelet Volume 9.9 fL (7.4-10.4); Monocytes # 0.3 10^3/uL (0.2-0.9); Monocytes % 12.6 %; Neutrophils # 1.4 10^3/uL (1.8-7.7); Neutrophils % 68.8 %; Nucleated Red Blood Cells % 0 %; Platelet Count 66 10^3/cmm (130-400); Red Blood Count 2.05 10^6/uL (4.1-5.3); Red Cell Distribution Width 19.9 % (12.1-15.1)
[2019-09-18 09:19] LABS: Alanine Aminotransferase 7 U/L (0-33); Albumin Level 3.4 g/dL (3.5-5.2); Alkaline Phosphatase 178 IU/L (35-105); Anion Gap 14.9 (5-19); Aspartate Amino Transferase 11 U/L (0-32); Blood Urea Nitrogen 27 mg/dL (8-23); Calcium 9.9 mg/dL (8.5-10.5); Carbon Dioxide 28 mmol/L (22-29); Chloride 95 mmol/L (98-107); Globulin 3.6 g/dL (1.3-4.6); Glucose 188 mg/dL (65-115); Hematocrit 19.2 % (37.0-47.0); Hemoglobin 6.4 g/dL (11.5-15.3); Osmolality Calculated 280 mOsm/kg (285-295); Potassium 3.9 mmol/L (3.5-5.1); Sodium 134 mmol/L (136-145); Total Bilirubin 1.2 mg/dL (0.15-1.2)
[2019-09-18 09:29] LABS: Estmated Average Glucose 143; Hemoglobin A1C 6.6 % (4.0-6.0)
[2019-09-18] MEDS: sodium chloride 0.9% 1,000 ML 999 ML IV (09:44)
[2019-09-18 10:44] LABS: Iron 85 ug/dL (37-145); Percent Saturation 34.1 % (20-50); Total Iron Binding Capacity 249 mcg/dl; Unsaturated Iron Binding 164 ug/dL (112-347)
[2019-09-18] MEDS: acetaminophen 325 mg Tablet 650 MG PO (11:21)
[2019-09-18] MEDS: diphenhydrAMINE 25 mg Capsule PO (11:21)
[2019-09-18] MEDS: sodium chloride 0.9% 250 ML 999 ML IV (11:37)
[2019-09-18] MEDS: FUROsemide 10 mg/mL SDV 2mL 20 MG IV (13:21)
--- NOTE | 2019-09-21 06:44 | ONC FU_ITS ---
Dr. Downey Patient Follow-Up Note Patient: Sharon Sotelo Unit #: [id number]: 1945 Dicatated By: Gato Downey M.D.Date of Visit:Sep 18, 2019 Onc Med Follow-up/Prog Note Chief Complaint: Cervical cancer. 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 On 05/03/2019 she had presented to the emergency room with pain in the left lower quadrant/left flank area and difficulty voiding. Her CT abdomen/pelvis showed a soft tissue mass which was involving the left superior lateral aspect of the urinary bladder and was contiguous with the cervix. It measured at least 4 x 4.9 x 5.8 cm. There was associated ureterovesical junction obstruction and moderate left hydronephrosis. There was associated adenopathy including a left inferior pelvic lymph node measuring 1 x 1.5 cm, a left para-aortic lymph node measuring 1.4 cm, a common iliac lymph node measuring 1.1 cm, and bilateral external iliac lymph nodes measuring up to 2.1 x 4.2 cm on the right and 1 x 1.7 cm on the left. She was referred to Dr. mike luna in [place]. On 06/04/2019 she underwent exam under anesthesia with cervical biopsy, cystoscopy with biopsy, and rigid proctoscopy to 15 cm. Her tumor appeared to be fixed to the left pelvic sidewall and there was noted to be right-sided parametrial disease. On the cystoscopy the tumor did appear to be involving the bladder. The cervical biopsy and the bladder biopsy both showed poorly differentiated squamous cell carcinoma. She was recommended to undergo chemoradiation. Her other medical illnesses include hypertension, type 2 diabetes, and hypothyroidism. She also has chronic anxiety. She is a non-smoker. INTERIM HISTORY: She began radiation concurrently with weekly cisplatin chemotherapy on 07/15/2019. She experienced no acute toxicity with her initial infusion of cisplatin. She was then able to continue her treatment weekly, completing her 6th infusion of cisplatin on 09/02/2019. She completed radiation on 09/03/2019 to a total dose of 5940 cGy. During her treatment she did require some growth factor support with Neupogen. She also required IV hydration on multiple occasions for nausea and poor oral intake. She is seen for a follow-up visit. She is still not feeling good since her chemoradiation. She has very low energy and very limited activity. ECOG score is 2. She has poor appetite, and she reports having constant nausea and she has gagging every morning and evening. She has had some acid reflux. Her bowel function has been okay. She has had no diarrhea. She does have some urinary frequency and burning. She has not had fever or night sweats. Her weight is down 15 pounds. She has had no mouth sores. She has no shortness of breath, cough, or chest pain. She has no significant joint or bone pain. She has no headache or dizziness, and she has no focal neurologic symptoms. Medications: ALPRAZolam 1 (0.25 mg) Tablet Oral daily, HYDROcodone-Acetaminophen 1 (7.5-325 mg) Tablet Oral q 6 hours PRN, Levothyroxine Sodium 1 (150 mcg) Tablet Oral daily, Lisinopril-hydroCHLOROthiazide 1 (20-25 mg) Tablet Oral daily, LORazepam 1 Tablet (of 1 mg) Oral t.i.d. PRN, metFORMIN HCl 2 Tablet (of 500 mg) Oral daily, Prochlorperazine Maleate 1 Tablet (of 10 mg) Oral q 4 hours PRN Allergies: Penicillins Review of Systems: Constitutional - Her energy is very low. She hasn't felt like doing much since her last chemo infusion on 09/01. She has little to no appetite. Her weight is down 8 pounds from her 09/01 visit. No fever, chills, hot flashes, or night sweats. ECOG score is 2, ENMT - She has some sinus congestion. No mouth sores. No sore throat or difficulty swallowing, Hematologic/Lymphatic - No abnormal bruising or bleeding, Respiratory - No shortness of breath. No cough. No pleuritic pain or hemoptysis, Cardiovascular - No angina pain. No palpitations, Gastrointestinal - She is having constant nausea that is worse in the morning. No vomitting but she is constantly gagging. No diarrhea or constipation. No blood in the stool or black stools, Genitourinary (F) - She is having some dysuria. No hematuria. She has urinary frequency. No urgency or incontinence, Musculoskeletal - No joint or bone pain, Integumentary - She states that she has some brown skin coloration to her radiation site. No redness, blistering, warmth or swelling, Neurologic - No headache or dizziness. No numbness/paresthesias or other focal neurologic symptoms, Psychiatric - She has some anxiety that is controlled well with Ativan. No depression. She is unable to sleep at night. Vital Signs: Performed on Sep 18, 2019 08:09 Height - 66.00 in Weight - 188 lbs (LOW) BSA - 1.95 sq.m BMI - 30.34 (HIGH) Temperature - 97.3 F (LOW) Pulse - 106 /min (HIGH) Respiration - 17 /min BP - 110/67 mm(hg) O2 Sat - 99 % Pain - 0 Physical Examination: Constitutional - She appears generally weak and pale, Eyes - Sclerae nonicteric. Conjunctivae clear, ENMT - No lesions noted in the oral cavity, Hematologic/Lymphatic - No cervical, clavicular, or axillary adenopathy, Respiratory - Lungs sound clear, Cardiovascular - Heart rhythm is regular. There is a II/ systolic murmur. There is no gallop or rub noted, Abdomen - Mildly distended but soft. Liver and spleen are not enlarged. There is no abdominal mass or ascites noted and there is no inguinal adenopathy, Extremities - No edema, Neurologic - No focal neurologic deficits noted. Lab/Imaging: Test performed on Sep 18, 2019 08:47 Sodium 134 mmol/L Potassium 3.9 mmol/L Chloride 95 mmol/L CO2 28 mmol/L Anion Gap 14.9 BUN 27 mg/dL Creatinine 1.5 mg/dL Cr Clearance (Est) 48.0200 mL/min Glucose 188 mg/dL Calcium 9.9 mg/dL Protein, Total 7.0 g/dL Albumin 3.4 g/dL Globulin 3.6 g/dL Bilirubin, Total 1.2 mg/dL ALT (SGPT) 7 U/L AST (SGOT) 11 U/L Alkaline Phosphatase 178 IU/L Hemoglobin A1C % 6.6 % WBC 2.0 10 3/uL RBC 2.05 10 6/uL HGB 6.4 g/dL HCT 19.2 % MCV 93.7 fL MCH 31.2 pg MCHC 33.3 g/dL RDW 19.9 % Platelet Count 66 10 3/cmm MPV 9.9 fL Neutrophils 1.4 10 3/uL Lymphocytes 0.3 10 3/uL Monocytes 0.3 10 3/uL Eosinophils 0.0 10 3/uL Basophils 0.0 10 3/uL Neutrophil % 68.8 % Lymphocyte % 17.1 % Monocyte % 12.6 % Eosinophil % 0.5 % Basophils % 0.5 % Impression: 1. 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 2. On 06/04/2019 she underwent exam under anesthesia with cervical biopsy, cystoscopy with biopsy of the bladder, and rigid proctoscopy to 15 cm. Her other medical illnesses include: 3. Hypertension. 4. Type 2 diabetes. 5. Hypothyroidism. 6. Chronic anxiety. She began radiation concurrently with weekly cisplatin chemotherapy on 07/15/2019. She had some nausea and fatigue with the initial chemotherapy treatment, but she was able to tolerate it with acceptable toxicity, and she continued her treatment weekly, completing her 6th infusion of cisplatin on 09/02/2019. She completed radiation on 09/03/2019 to a total dose of 5940 cGy. During her treatment she required growth factor support with Neupogen, and she also required frequent IV hydration. At this point she continues to have ongoing fatigue and nausea/anorexia, and she has significant pancytopenia. It seems to be unusually severe considering that she completed her treatment 2 weeks ago. Plan: She will be given IV hydration and IV antiemetics. She will be transfused 2 units PRBC. She will continue additional IV hydration this week, and I also will have her try some additional steroid therapy with 4 mg dexamethasone daily. I will recheck her lab studies next week. Signed By: Gato Downey M.D. <<Signature on File>>
== END 2019-09-18 09:00 | disposition home or self-care (01) ==
LOC: ONCMED 02-18 14:16
PROVIDERS: PCP Family Medicine; Visit Provider Internal Medicine Medical Oncology
DX: C53.9 Malignant neoplasm of cervix uteri, unspecified (principal); E11.65 Type 2 diabetes mellitus with hyperglycemia; Z51.81 Encounter for therapeutic drug level monitoring; Z79.899 Other long term (current) drug therapy; D70.1 Agranulocytosis secondary to cancer chemotherapy; D64.81 Anemia due to antineoplastic chemotherapy; T45.1X5A Adverse effect of antineoplastic and immunosuppressive drugs, initial encounter
CPT/HCPCS: 36430; 80053; 83036; 83540; 83550; 85025; 86850; 86900; 86920; 96361; 96365; 96367; J1100; J1940; J2405; J7030; J7050; P9016

== ENCOUNTER 2019-09-23 05:44 | Outpatient (RCR) | payer MEDICARE, MEDICAID, SELFPAY ==
[2019-09-02] MEDS: sodium chloride 0.9% 250 ML 75 ML IV (09:10)
[2019-09-02] MEDS: sodium chloride 0.9% 250 ML 999 ML IV (09:10)
[2019-09-02 09:16] LABS: Basophils % 0.6 %; Eosinophils % 0.4 %; Hematocrit 31.4 % (37.0-47.0); Hemoglobin 10.3 g/dL (11.5-15.3); Lymphocytes # 0.3 10^3/uL (0.8-4.8); Lymphocytes % 7.1 %; Mean Corpuscular HGB Conc 32.8 g/dL (30.0-36.0); Mean Corpuscular Hemoglobin 29.1 pg (28.0-34.0); Mean Corpuscular Volume 88.7 fL (81-99); Monocytes # 0.9 10^3/uL (0.2-0.9); Monocytes % 19.2 %; Neutrophils # 3.2 10^3/uL (1.8-7.7); Neutrophils % 68.4 %; Nucleated Red Blood Cells % 0 %; Platelet Count 114 10^3/cmm (130-400); Red Blood Count 3.54 10^6/uL (4.1-5.3); Red Cell Distribution Width 16.7 % (12.1-15.1); White Blood Count 4.7 10^3/uL (4.0-10.0)
[2019-09-02 09:41] LABS: Alanine Aminotransferase 8 U/L (0-33); Alkaline Phosphatase 177 IU/L (35-105); Anion Gap 19.1 (5-19); Aspartate Amino Transferase 12 U/L (0-32); Blood Urea Nitrogen 13 mg/dL (8-23); Calcium 10.2 mg/dL (8.5-10.5); Carbon Dioxide 24 mmol/L (22-29); Chloride 98 mmol/L (98-107); Globulin 3.3 g/dL (1.3-4.6); Glucose 203 mg/dL (65-115); Potassium 3.1 mmol/L (3.5-5.1); Sodium 138 mmol/L (136-145); Total Bilirubin 0.6 mg/dL (0.15-1.2); Total Protein 7.3 g/dL (6.6-8.7)
[2019-09-02 10:30] LABS: Magnesium 1.9 mg/dL (1.7-2.3)
--- NOTE | 2019-09-02 10:52 | ONC FU_ITS ---
[facility]ning Patient Note Patient: Sharon Sotelo Unit #: [id number]: 1945 Dictated By: Sesar BreenDate of Visit: Sep 02, 2019 Onc MED Follow-Up/Prog Note Chief Complaint: Cervical cancer. 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 On 05/03/2019 she had presented to the emergency room with pain in the left lower quadrant/left flank area and difficulty voiding. Her CT abdomen/pelvis showed a soft tissue mass which was involving the left superior lateral aspect of the urinary bladder and was contiguous with the cervix. It measured at least 4 x 4.9 x 5.8 cm. There was associated ureterovesical junction obstruction and moderate left hydronephrosis. There was associated adenopathy including a left inferior pelvic lymph node measuring 1 x 1.5 cm, a left para-aortic lymph node measuring 1.4 cm, a common iliac lymph node measuring 1.1 cm, and bilateral external iliac lymph nodes measuring up to 2.1 x 4.2 cm on the right and 1 x 1.7 cm on the left. She was referred to Dr. Ybarra in [place]. On 06/04/2019 she underwent exam under anesthesia with cervical biopsy, cystoscopy with biopsy, and rigid proctoscopy to 15 cm. Her tumor appeared to be fixed to the left pelvic sidewall and there was noted to be right-sided parametrial disease. On the cystoscopy the tumor did appear to be involving the bladder. The cervical biopsy and the bladder biopsy both showed poorly differentiated squamous cell carcinoma. She was recommended to undergo chemoradiation. Her other medical illnesses include hypertension, type 2 diabetes, and hypothyroidism. She also has chronic anxiety. She is a non-smoker. INTERIM HISTORY: She began radiation concurrently with weekly cisplatin chemotherapy on 07/15/2019. She experienced no acute toxicity with her initial infusion of cisplatin. She was then able to continue with her week 2 treatment on 07/22/2019. Ms. Raines is here today for follow-up and consideration of week for cisplatin. She has completed 5 weeks with no problems at this point. Her week 4 was delayed on August 05, 2019 due to persistent diarrhea and a significant drop in her blood counts-ANC dropped from 6100 on week 3 to 2100 week 4. She had had persistent diarrhea but it does responds to Lomotil. She tolerated the Neupogen well and her counts have recovered. She did receive transfusion services for HGB of 7.8 with week 5 chemo. She denies any fever or chills or signs of infection. She denies any new pain. Her appetite is good and her energy is good. She denies any vaginal bleeding; bladder complaints or constipation. She denies any new neuropathy symptoms. She states she feels pretty good overall. She has an appointment in [place] on 09/09/2019 with the radiation oncologist for implants post chemoradiation. Her ECOG is 2. Past Medical History: Anxiety Hyperlipidemia Hypertension Type II diabetes Past Surgical History: Attempted placement of PowerPort venous access device in 2019 Exam under anesthesia with cervical biopsy, rigid proctoscopy to 15 cm, and cystoscopy in 2019 Allergies: Penicillins Medications: ALPRAZolam 1 (0.25 mg) Tablet Oral daily HYDROcodone-Acetaminophen 1 (7.5-325 mg) Tablet Oral q 6 hours PRN Levothyroxine Sodium 1 (150 mcg) Tablet Oral daily Lisinopril-hydroCHLOROthiazide 1 (20-25 mg) Tablet Oral daily LORazepam 1 Tablet (of 1 mg) Oral t.i.d. PRN metFORMIN HCl 2 Tablet (of 500 mg) Oral daily Prochlorperazine Maleate 1 Tablet (of 10 mg) Oral q 4 hours PRN Family History: Ms. Sotelo's mother is . Ms. Sotelo's father is . Ms. Sotelo has 2 sisters: 2 . Father had brain aneurysm. Mother of heart attack at age 74. He had 2 sisters who from breast cancer and a neice (one of their daughters) also from breast cancer. Social History: Ms. Sotelo is single and she is a disabled. Ms. Sotelo has never smoked. She has no history of drinking. She is a non-smoker. She does not drink alcohol. Review Of Symptoms: Constitutional Denies fevers, chills, night sweats, excessive fatigue or weight loss. Allergic/Immunologic No reactions. Eyes Denies significant visual changes. No diplopia. No amaurosis. ENMT Denies changes in hearing, sore throat, mouth sores, difficulty or changes in swallowing ability, and/or sinus drainage. Endocrine No diabetes, thyroid disease or hormone replacement. Denies hot flashes or night sweats. Hematologic/Lymphatic Denies easy bruising or bleeding. The patient denies any tender or palpable lymph nodes. Respiratory Denies dyspnea on exertion, chest pain, cough or hemoptysis. Denies orthopnea. Cardiovascular Denies anginal chest pain, palpitations or orthopnea. Gastrointestinal Denies nausea, vomiting, GI bleeding, or constipation. Has had intermittent diarrhea but resolved currently. Imodium does control it when she takes it. Genitourinary (F) No hematuria, hesitancy, incontinence, vaginal bleeding, discharge or other problems with urination. Musculoskeletal Denies joint pain, swelling or redness. No decreased range of motion. Integumentary Denies chronic rashes, inflammation, ulcerations or skin changes. Neurologic Denies headache, blurred vision, and no areas of focal weakness or numbness. Normal gait. No sensory problems. Psychiatric Denies insomnia, depression, cornelio or mood swings. Vital Signs: Performed on Sep 02, 2019 10:16 Height - 66.00 in Weight - 196 lbs (LOW) BSA - 1.98 sq.m BMI - 31.64 (HIGH) Temperature - 97.4 F (LOW) Pulse - 96 /min Respiration - 18 /min BP - 151/81 mm(hg) (HIGH) O2 Sat - 97 % Pain - 0,2 - Ambulatory/capable of all self-care, unable to perform any work activities. Up and about more than 50% of waking hours. (ECOG) Physical Examination: Constitutional Alert, oriented, no acute distress. Skin pink, warm and dry. Head Normocephalic; atraumatic. Eyes Conjunctivae and sclerae are clear and without icterus. Pupils are reactive and equal. ENMT No oral exudates, ulcers, masses, thrush or mucositis. Oropharynx clear. Tongue normal. Neck Supple without masses or thyromegaly. No jugular venous distension. Hematologic/Lymphatic No petechiae or purpura. No tender or palpable lymph nodes in the cervical or supraclavicular areas. Respiratory Lungs are clear to auscultation without rhonchi or wheezing. Cardiovascular Regular rate and rhythm of heart without clicks, gallops or rubs. She does have a soft systolic murmur. Back/Spine Non-tender to palpation. Extremities No visible deformities, no cyanosis, clubbing or edema. Musculoskeletal No tenderness or swelling, normal range of motion without obvious weakness. Integumentary No rashes or lesions. Neurologic No sensory or motor deficits, normal cerebellar function, normal gait. Psychiatric Alert and oriented times three. Coherent speech. Verbalizes understanding of our discussions today. Laboratory:Test performed on Sep 02, 2019 08:50 Magnesium 1.9 mg/dL Sodium 138 mmol/L Potassium 3.1 mmol/L Chloride 98 mmol/L CO2 24 mmol/L Anion Gap 19.1 BUN 13 mg/dL Creatinine 1.2 mg/dL Cr Clearance (Est) 60.0200 mL/min Glucose 203 mg/dL Calcium 10.2 mg/dL Protein, Total 7.3 g/dL Albumin 4.0 g/dL Globulin 3.3 g/dL Bilirubin, Total 0.6 mg/dL ALT (SGPT) 8 U/L AST (SGOT) 12 U/L Alkaline Phosphatase 177 IU/L WBC 4.7 10 3/uL RBC 3.54 10 6/uL HGB 10.3 g/dL HCT 31.4 % MCV 88.7 fL MCH 29.1 pg MCHC 32.8 g/dL RDW 16.7 % Platelet Count 114 10 3/cmm MPV 9.0 fL Neutrophils 3.2 10 3/uL Lymphocytes 0.3 10 3/uL Monocytes 0.9 10 3/uL Eosinophils 0.0 10 3/uL Basophils 0.0 10 3/uL Neutrophil % 68.4 % Lymphocyte % 7.1 % Monocyte % 19.2 % Eosinophil % 0.4 % Basophils % 0.6 % Test performed on Aug 27, 2019 10:24 Ferritin 431 ng/mL Iron 61 ug/dL Vitamin B12 871 pg/mL UIBC 185 ug/dL Impression: 1. 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 2. On 06/04/2019 she underwent exam under anesthesia with cervical biopsy, cystoscopy with biopsy of the bladder, and rigid proctoscopy to 15 cm. Her other medical illnesses include: 3. Hypertension. 4. Type 2 diabetes. 5. Hypothyroidism. 6. Chronic anxiety. She began radiation concurrently with weekly cisplatin chemotherapy on 07/15/2019. She had some nausea and fatigue with the initial chemotherapy treatment, but she was able to tolerate it with acceptable toxicity, and she continued with her week to cisplatin infusion on 07/22/2019. Since then there has been some further decline in her energy/activity tolerance, to the point that she required assistance with her foil operator. She was able to get assistance through Medicaid for this. She has had a significant drop in her blood counts from week 3 to week for. She is having persistent diarrhea but it is controlled with Lomotil when she takes it. She is otherwise tolerating the treatment well. She will complete her 6th weekly dose of Cisplatin today and completed radiation therapy on 09/03/2019. Plan: 1. Proceed with week 6 Cisplatin. 2. She responded well to the Neupogen as her ANC today is 3200. 3. We will have her continue Lomotil as directed for diarrhea. She is aware she may need to alternate it with the Imodium. She is also instructed to let us know if that is not improving her diarrhea as we may have to add Questran powder. 4. Today's labs reviewed in detail and discussed with Ms. Raines and a copy was given to her. WBC 4.7 hemoglobin 10.3, platelets 114,000 and ANC is 3200. Her alk phos was 177 which is most likely related to her previous Neupogen injections. 5. We will plan to see her back in 5-6 weeks with a CBC CMP & HGBA1C for followup post radiation therapy and implant therapy. 6. Mrs. Sotelo was instructed to contact us in the interim should questions or problems arise. She was instructed to call us if she has any signs or symptoms of infection. She may hae supportive care as needed in the interim. 7. Refill hydrocodone per Dr Downey written prescription/ Signed By: Sesar Breen-, [facility]ITALP Gato Downey MD <<Signature on File>>
[2019-09-02] MEDS: FUROsemide 10 mg/mL SDV 2mL 20 MG IV (12:46)
[2019-09-02] MEDS: potassium chloride 20 MEQ in sodium chloride 0.9% 500 ML 250 MEQ IV (12:50)
[2019-09-19] MEDS: sodium chloride 0.9% 1,000 mL Bolus 999 ML IV (11:15)
[2019-09-20 08:44] LABS: Eosinophils % 0.6 %; Hematocrit 26.2 % (37.0-47.0); Hemoglobin 8.7 g/dL (11.5-15.3); Lymphocytes # 0.3 10^3/uL (0.8-4.8); Lymphocytes % 19.5 %; Mean Corpuscular HGB Conc 33.2 g/dL (30.0-36.0); Mean Corpuscular Hemoglobin 30.2 pg (28.0-34.0); Mean Platelet Volume 9.5 fL (7.4-10.4); Monocytes # 0.2 10^3/uL (0.2-0.9); Monocytes % 11.3 %; Neutrophils # 1.1 10^3/uL (1.8-7.7); Neutrophils % 66.7 %; Nucleated Red Blood Cells % 0 %; Platelet Count 71 10^3/cmm (130-400); Red Blood Count 2.88 10^6/uL (4.1-5.3); Red Cell Distribution Width 18.9 % (12.1-15.1); White Blood Count 1.6 10^3/uL (4.0-10.0)
[2019-09-20 08:58] LABS: Anion Gap 16.8 (5-19); Blood Urea Nitrogen 21 mg/dL (8-23); Calcium 9.9 mg/dL (8.5-10.5); Carbon Dioxide 25 mmol/L (22-29); Chloride 98 mmol/L (98-107); Glucose 175 mg/dL (65-115); Osmolality Calculated 283 mOsm/kg (285-295); Potassium 3.8 mmol/L (3.5-5.1); Sodium 136 mmol/L (136-145)
[2019-09-23] VITALS (10 sets, daily range): BP systolic 101–118; BP diastolic 58–67; PULSE 72–80; RESP 18; TEMP 35.7–36.1; O2SAT 95–99
[2019-09-23 08:52] LABS: Eosinophils % 0.6 %; Hemoglobin 8.3 g/dL (11.5-15.3); Lymphocytes # 0.3 10^3/uL (0.8-4.8); Lymphocytes % 15.4 %; Mean Corpuscular HGB Conc 33.2 g/dL (30.0-36.0); Mean Corpuscular Volume 93.3 fL (81-99); Mean Platelet Volume 9.5 fL (7.4-10.4); Monocytes # 0.3 10^3/uL (0.2-0.9); Monocytes % 16.6 %; Neutrophils # 1.1 10^3/uL (1.8-7.7); Neutrophils % 66.8 %; Nucleated Red Blood Cells % 0 %; Platelet Count 89 10^3/cmm (130-400); Red Blood Count 2.68 10^6/uL (4.1-5.3); White Blood Count 1.7 10^3/uL (4.0-10.0)
[2019-09-23] MEDS: sodium chloride 0.9% 250 ML 999 ML IV (11:55)
[2019-09-23] MEDS: acetaminophen 325 mg Tablet 650 MG PO (11:55)
[2019-09-23] MEDS: diphenhydrAMINE 25 mg Capsule PO (11:55)
[2019-09-23] MEDS: FUROsemide 10 mg/mL SDV 2mL 20 MG IV (13:43)
== END 2019-10-01 23:59 | disposition home or self-care (01) ==
LOC: ONCMED 05:44
PROVIDERS: Nurse Practitioner; Family Provider Family Medicine; PCP Family Medicine; Visit Provider Internal Medicine Medical Oncology
DX: Z51.0 Encounter for antineoplastic radiation therapy (principal); Z51.11 Encounter for antineoplastic chemotherapy; C53.9 Malignant neoplasm of cervix uteri, unspecified; R53.83 Other fatigue; R11.0 Nausea; D61.818 Other pancytopenia; E86.9 Volume depletion, unspecified; I10 Essential (primary) hypertension; E11.9 Type 2 diabetes mellitus without complications; E03.9 Hypothyroidism, unspecified; F41.9 Anxiety disorder, unspecified; E78.5 Hyperlipidemia, unspecified; Z79.891 Long term (current) use of opiate analgesic; Z79.84 Long term (current) use of oral hypoglycemic drugs; Z79.899 Other long term (current) drug therapy
CPT/HCPCS: 36415; 36430; 77336; 77386; 80048; 80053; 83036; 83540; 83550; 83735; 85025; 86850; 86900; 86920; 96360; 96361; 96365; 96366; 96367; 96375; 96413; 99214; J1100; J1453; J1940; J2405; J2469; J3475; J3480; J7030; J7040; J7050; J9060; P9016

== ENCOUNTER 2019-10-15 06:43 | Outpatient (RCR) | payer MEDICARE, MEDICAID, SELFPAY ==
[2019-10-03 10:55] LABS: Basophils % 0.4 %; Eosinophils % 0.2 %; Hematocrit 32.1 % (37.0-47.0); Hemoglobin 10.4 g/dL (11.5-15.3); Lymphocytes # 0.5 10^3/uL (0.8-4.8); Lymphocytes % 9.6 %; Mean Corpuscular HGB Conc 32.4 g/dL (30.0-36.0); Mean Corpuscular Hemoglobin 30.5 pg (28.0-34.0); Mean Corpuscular Volume 94.1 fL (81-99); Mean Platelet Volume 9.4 fL (7.4-10.4); Monocytes # 0.6 10^3/uL (0.2-0.9); Monocytes % 10.3 %; Neutrophils # 4.4 10^3/uL (1.8-7.7); Neutrophils % 78.8 %; Nucleated Red Blood Cells % 0 %; Platelet Count 177 10^3/cmm (130-400); Red Blood Count 3.41 10^6/uL (4.1-5.3); Red Cell Distribution Width 17.1 % (12.1-15.1); White Blood Count 5.6 10^3/uL (4.0-10.0)
[2019-10-03 11:08] LABS: Alanine Aminotransferase 25 U/L (0-33); Albumin Level 3.8 g/dL (3.5-5.2); Alkaline Phosphatase 159 IU/L (35-105); Aspartate Amino Transferase 18 U/L (0-32); Blood Urea Nitrogen 31 mg/dL (8-23); Calcium 10.3 mg/dL (8.5-10.5); Carbon Dioxide 24 mmol/L (22-29); Chloride 100 mmol/L (98-107); Globulin 3.1 g/dL (1.3-4.6); Glucose 244 mg/dL (65-115); Osmolality Calculated 287 mOsm/kg (285-295); Sodium 136 mmol/L (136-145); Total Bilirubin 0.4 mg/dL (0.15-1.2); Total Protein 6.9 g/dL (6.6-8.7)
[2019-10-15 13:50] LABS: Basophils % 0.1 %; Eosinophils % 0.1 %; Hematocrit 33.7 % (37.0-47.0); Hemoglobin 10.2 g/dL (11.5-15.3); Lymphocytes # 0.9 10^3/uL (0.8-4.8); Lymphocytes % 11.6 %; Mean Corpuscular HGB Conc 30.3 g/dL (30.0-36.0); Mean Corpuscular Hemoglobin 30.9 pg (28.0-34.0); Mean Corpuscular Volume 102.1 fL (81-99); Mean Platelet Volume 10.1 fL (7.4-10.4); Monocytes # 0.3 10^3/uL (0.2-0.9); Monocytes % 3.6 %; Neutrophils # 6.7 10^3/uL (1.8-7.7); Neutrophils % 83.4 %; Nucleated Red Blood Cells % 0 %; Platelet Count 150 10^3/cmm (130-400); Red Cell Distribution Width 18.1 % (12.1-15.1)
[2019-10-15 13:59] LABS: Alanine Aminotransferase 35 U/L (0-33); Albumin Level 3.7 g/dL (3.5-5.2); Alkaline Phosphatase 118 IU/L (35-105); Anion Gap 21.8 (5-19); Aspartate Amino Transferase 16 U/L (0-32); Blood Urea Nitrogen 46 mg/dL (8-23); Calcium 10.5 mg/dL (8.5-10.5); Carbon Dioxide 17 mmol/L (22-29); Chloride 96 mmol/L (98-107); Globulin 3.7 g/dL (1.3-4.6); Glucose 410 mg/dL (65-115); Osmolality Calculated 285 mOsm/kg (285-295); Potassium 4.8 mmol/L (3.5-5.1); Sodium 130 mmol/L (136-145); Total Bilirubin 0.5 mg/dL (0.15-1.2); Total Protein 7.4 g/dL (6.6-8.7)
--- NOTE | 2019-10-16 13:09 | ONC FU_ITS ---
Dr. Downey Patient Follow-Up Note Patient: Sharon Sotelo Unit #: [id number]: 1945 Dicatated By: Gato Downey M.D.Date of Visit:Oct 15, 2019 Onc Med Follow-up/Prog Note Chief Complaint: Cervical cancer. 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 On 05/03/2019 she had presented to the emergency room with pain in the left lower quadrant/left flank area and difficulty voiding. Her CT abdomen/pelvis showed a soft tissue mass which was involving the left superior lateral aspect of the urinary bladder and was contiguous with the cervix. It measured at least 4 x 4.9 x 5.8 cm. There was associated ureterovesical junction obstruction and moderate left hydronephrosis. There was associated adenopathy including a left inferior pelvic lymph node measuring 1 x 1.5 cm, a left para-aortic lymph node measuring 1.4 cm, a common iliac lymph node measuring 1.1 cm, and bilateral external iliac lymph nodes measuring up to 2.1 x 4.2 cm on the right and 1 x 1.7 cm on the left. She was referred to Dr. Ybarra in [place]. On 06/04/2019 she underwent exam under anesthesia with cervical biopsy, cystoscopy with biopsy, and rigid proctoscopy to 15 cm. Her tumor appeared to be fixed to the left pelvic sidewall and there was noted to be right-sided parametrial disease. On the cystoscopy the tumor did appear to be involving the bladder. The cervical biopsy and the bladder biopsy both showed poorly differentiated squamous cell carcinoma. She was recommended to undergo chemoradiation. Her other medical illnesses include hypertension, type 2 diabetes, and hypothyroidism. She also has chronic anxiety. She is a non-smoker. INTERIM HISTORY: She began radiation concurrently with weekly cisplatin chemotherapy on 07/15/2019. She experienced no acute toxicity with her initial infusion of cisplatin. She was then able to continue her treatment weekly, completing her 6th infusion of cisplatin on 09/02/2019. She completed radiation on 09/03/2019 to a total dose of 5940 cGy. During her treatment she did require some growth factor support with Neupogen. She also required IV hydration on multiple occasions for nausea and poor oral intake. I had seen her for a follow-up visit on 09/18/2019. At that point she was really doing quite poorly, as she had gotten very weak and she was having significant anorexia/nausea, so that her oral intake was very poor. She was significantly pancytopenic with hemoglobin 6.4 g, white blood cell count 2000, and platelet count 66,000. She was transfused and she was given further IV hydration and supportive care measures. During subsequent follow-up there was further decline in the granulocyte count, nadiring at approximately 1000. She then began to show gradual improvement in her clinical status. However, during that time she had been to the radiation oncologist in [place] on 2 occasions, and on both she was declined for her brachytherapy. She is seen for a follow-up visit. She is feeling much better now. Her activity tolerance has improved and she is able to do light work. She has good appetite and she has gained weight. She has no fever, night sweats, or hot flashes. She does not complain of shortness of breath or chest pain. She has just a little bit of cough. She still has heartburn occasionally, but her nausea has resolved, and she has no other GI or complaints. She has no significant joint or bone pain. She has no focal neurologic symptoms. Medications: ALPRAZolam 1 (0.25 mg) Tablet Oral daily, HYDROcodone-Acetaminophen 1 (7.5-325 mg) Tablet Oral q 6 hours PRN, Levothyroxine Sodium 1 (150 mcg) Tablet Oral daily, Lisinopril-hydroCHLOROthiazide 1 (20-25 mg) Tablet Oral daily, LORazepam 1 Tablet (of 1 mg) Oral t.i.d. PRN, metFORMIN HCl 2 Tablet (of 500 mg) Oral daily, Prochlorperazine Maleate 1 Tablet (of 10 mg) Oral q 4 hours PRN Allergies: Penicillins Review of Systems: Constitutional - Her energy level is pretty good now. She is able to do light housework. Her appetite is much improved and weight is up a few pounds. No fever, chills, hot flashes, or night sweats. ECOG score is 1, ENMT - No sinus congestion/drainage. No mouth sores. No sore throat or difficulty swallowing, Hematologic/Lymphatic - No abnormal bruising or bleeding, Respiratory - No shortness of breath. She has a little bit of cough. No pleuritic pain or hemoptysis, Cardiovascular - No angina pain. No palpitations, Gastrointestinal - No nausea or vomiting. She has occasional heartburn that is pretty well managed with Protonix. No diarrhea or constipation. No blood in the stool or black stools, Genitourinary (F) - No dysuria or hematuria. No urinary frequency. No urgency or incontinence, Musculoskeletal - No joint or bone pain, Integumentary - No skin complications, Neurologic - No headache or dizziness. No numbness/paresthesias or other focal neurologic symptoms, Psychiatric - Her anxiety is adequately managed with Xanax. No depression. She has insomnia. Vital Signs: Performed on Oct 15, 2019 14:47 Height - 66.00 in Weight - 195.8 lbs (HIGH) BSA - 1.98 sq.m BMI - 31.60 (HIGH) Temperature - 97.8 F (LOW) Pulse - 81 /min Respiration - 22 /min BP - 152/71 mm(hg) (HIGH) O2 Sat - 97 % Pain - 0 Physical Examination: Constitutional - She still looks a little bit weak generally, Eyes - Sclerae nonicteric. Conjunctivae clear, ENMT - No lesions noted in the oral cavity, Hematologic/Lymphatic - No cervical, clavicular, or axillary adenopathy, Respiratory - Lungs sound clear, Cardiovascular - Heart rhythm is regular. There is a II/ systolic murmur. There is no gallop or rub noted, Abdomen - Soft. Liver and spleen are not enlarged. There is no abdominal mass or ascites noted and there is no inguinal adenopathy, Extremities - No edema, Neurologic - No focal neurologic deficits noted. Lab/Imaging: Test performed on Oct 15, 2019 13:22 Sodium 130 mmol/L Potassium 4.8 mmol/L Chloride 96 mmol/L CO2 17 mmol/L Anion Gap 21.8 BUN 46 mg/dL Creatinine 1.0 mg/dL Cr Clearance (Est) 72.0300 mL/min Glucose 410 mg/dL Calcium 10.5 mg/dL Protein, Total 7.4 g/dL Albumin 3.7 g/dL Globulin 3.7 g/dL Bilirubin, Total 0.5 mg/dL ALT (SGPT) 35 U/L AST (SGOT) 16 U/L Alkaline Phosphatase 118 IU/L WBC 8.0 10 3/uL RBC 3.30 10 6/uL HGB 10.2 g/dL HCT 33.7 % MCV 102.1 fL MCH 30.9 pg MCHC 30.3 g/dL RDW 18.1 % Platelet Count 150 10 3/cmm MPV 10.1 fL Neutrophils 6.7 10 3/uL Lymphocytes 0.9 10 3/uL Monocytes 0.3 10 3/uL Eosinophils 0.0 10 3/uL Basophils 0.0 10 3/uL Neutrophil % 83.4 % Lymphocyte % 11.6 % Monocyte % 3.6 % Eosinophil % 0.1 % Basophils % 0.1 % Impression: 1. 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 2. On 06/04/2019 she underwent exam under anesthesia with cervical biopsy, cystoscopy with biopsy of the bladder, and rigid proctoscopy to 15 cm. Her other medical illnesses include: 3. Hypertension. 4. Type 2 diabetes. 5. Hypothyroidism. 6. Chronic anxiety. She began radiation concurrently with weekly cisplatin chemotherapy on 07/15/2019. She had some nausea and fatigue with the initial chemotherapy treatment, but she was able to tolerate it with acceptable toxicity, and she continued her treatment weekly, completing her 6th infusion of cisplatin on 09/02/2019. She completed radiation on 09/03/2019 to a total dose of 5940 cGy. During her treatment she required growth factor support with Neupogen, and she also required frequent IV hydration. She had unusually severe toxicity from the treatment, as she then continued to have weakness and nausea/anorexia. She developed worsening pancytopenia, significant enough to require transfusion. She has had gradual recovery. However, due to her treatment related toxicity she was not able to undergo brachytherapy. Plan: She will be scheduled for a restaging PET/CT. I will then confer with Dr. Ybarra regarding her further management. In the meantime, I also will check to see whether she may still be eligible for brachytherapy. Signed By: Gato Downye M.D. <<Signature on File>>
== END 2019-10-31 23:59 | disposition home or self-care (01) ==
LOC: ONCMED 06:43
PROVIDERS: Family Provider Family Medicine; PCP Family Medicine; Visit Provider Internal Medicine Medical Oncology
DX: C53.9 Malignant neoplasm of cervix uteri, unspecified (principal); C79.11 Secondary malignant neoplasm of bladder; F41.9 Anxiety disorder, unspecified; E78.5 Hyperlipidemia, unspecified; I10 Essential (primary) hypertension; E11.9 Type 2 diabetes mellitus without complications; E03.9 Hypothyroidism, unspecified; Z92.3 Personal history of irradiation; Z92.21 Personal history of antineoplastic chemotherapy; Z79.899 Other long term (current) drug therapy
CPT/HCPCS: 36415; 36591; 80053; 85025; 99214

== ENCOUNTER 2019-12-21 13:21 | Inpatient (IN) | payer MEDICARE, MEDICAID, SELFPAY ==
[2019-12-21] VITALS (11 sets, daily range): BP systolic 92–114; BP diastolic 48–66; PULSE 90–108; RESP 16–18; TEMP 37.2; O2SAT 94–98; BMI 32.3
--- NOTE | 2019-12-21 14:11 | W.ED.CHESTPA ---
HPI - Chest Pain General: Chief Complaint: Chest Pain Stated Complaint: CA PT; RECTAL BLEED Time Seen by Provider: 12/21/19 13:23 History of Present Illness: HPI narrative: 74 yo female with a known history of cervical CA was diagnosed within the last year at stage IV. She has had difficulty with treatment and about 2 months ago they had stopped in a few months she has a PET scan now reviewed and evaluated. Presents today for complaints of chest pain and rectal bleeding. Chest pain is only when she eats does not matter if she is solids or liquids. But 3 to 4 days ago she noticed a white rash on her tongue and her tongue is been very sensitive to anything she eats shortly after that she began noticing pain in her chest whenever she tried to swallow anything. In about the same timeframe she began to notice she had rectal bleeding moderate amount of bright red blood she said she has a sore in her rectum she thinks is a hemorrhoid has been the source. MD complaint: chest pain Pertinent past history: other (Cervical CA with recent oral candidiasis) Onset (ago): day(s) (3 to 4 days) Timing of current episode: constant and increasing Onset: after eating (Specifically during swallowing) Pain location: substernal Pain radiation: none Severity: severe Quality: sharp and burning Relieving factors: nothing Exacerbating factors: eating Context: recent illness (Focal cancer stage IV diagnosis) and recent surgery (Recent surgical resection of cervical CA) Associated symptoms: Reports other (Patient is also having rectal bleeding); Deny abdominal pain, dyspnea, fever(s), nausea or vomiting Treatment prior to arrival: none Review of Systems Const: Denies: fever(s), chills, body aches, change in appetite, fatigue or malaise ENMT: Denies: throat pain, ear or mastoid pain, nasal discharge or nasal congestion Card: Denies: chest pain, edema, dyspnea on exertion or orthopnea Resp: Denies: dyspnea, productive cough or non-productive cough GI: Denies: abdominal pain, nausea, vomiting, hematemesis, coffee ground emesis, diarrhea, constipation, bloating, hematochezia or melena : Denies: flank pain, difficulty voiding, dysuria, urinary frequency or urinary urgency Skin/Breast: Denies: rash or pruritus PFSH ED PFSH: Medical History (Updated 12/21/19 @ 16:25 by Vel Saab DO) Anxiety Cervical cancer, FIGO stage EVARISTO Diabetes mellitus Gastroesophageal reflux disease Hypertension Surgical History (Updated 12/21/19 @ 14:21 by Vel Saab DO) H/O pelvic surgery Resection of cervical cancer and associated metastasis Social History (Updated 12/21/19 @ 14:21 by Vel Saab DO) Smoking and tobacco status: never smoked Alcohol intake: never Physical Exam Const: COMMON NORMALS: no acute distress GENERAL APPEARANCE: cooperative and comfortable ORIENTATION/CONSCIOUSNESS: Yes awake, Yes oriented to person, Yes oriented to place and Yes oriented to time HENMT: COMMON NORMALS: normocephalic, atraumatic, hearing grossly normal bilaterally, external ears normal, EAC's normal, TM's normal bilaterally, Normal nasal mucous membranes and turbinates present, moist oral mucous membranes and oropharynx normal HEAD & SCALP: normocephalic and atraumatic NOSE: Normal nasal mucous membranes and turbinates present EXTERNAL EAR: Yes external ears normal EXTERNAL AUDITORY CANAL: EAC's normal TYMPANIC MEMBRANE: TM's normal bilaterally Eye: COMMON NORMALS: Equal, round and reactive pupils present, EOMs intact bilaterally, conjunctivae normal and no scleral icterus CONJUNCTIVA: Yes conjunctivae normal PUPIL: Yes Equal, round and reactive pupils present Neck/C-Spine: COMMON NORMALS: full ROM, no lymphadenopathy, supple and no JVD Lymph: LYMPHATIC: no lymphadenopathy noted and no lymphedema noted Resp: COMMON NORMALS: normal respiratory effort, No retractions, No use of accessory muscles and clear to auscultation bilaterally AUSCULTATION: clear to auscultation bilaterally Cardio: COMMON NORMALS: no JVD, regular rate, regular rhythm and No murmurs present (Cardio) RATE: regular rate RHYTHM: regular rhythm GI: COMMON NORMALS: Soft to palpation and No hepatosplenomegaly present AUSCULTATION: Yes normoactive bowel sounds PALPATION: Yes Soft to palpation, No Tenderness to palpation present (GI), No Guarding due to palpation present (GI) and Yes No hepatosplenomegaly present Extremity: COMMON NORMALS: normal to inspection, capillary refill normal, no clubbing, cyanosis or edema, no calf tenderness and no pedal edema Neuro: SENSORIUM/ORIENTATION: Yes oriented to person, Yes oriented to place and Yes oriented to time Skin: COMMON NORMALS: no rashes or lesions noted GENERAL SKIN EXAM: no rashes or lesions noted Course Vital Signs: Vital signs: Vital Signs Temperature 98.9 F 12/21/19 13:24 Pulse Rate 95 12/21/19 15:30 Respiratory Rate 18 12/21/19 15:30 Blood Pressure 101/50 12/21/19 15:04 Pulse Oximetry 96 12/21/19 15:30 MDM - Chest Pain MDM Narrative: Medical decision making narrative: Discussed the patient Dr. Franco. She will need to be admitted for acute kidney injury and esophageal candidiasis she is not able to tolerate any p.o. intake also need to stabilize her diabetes and treat her rectal fissure Lab Data: Labs: Lab Results 12/21/19 12/21/19 12/21/19 Range/Units 13:48 13:48 13:48 WBC 7.3 (4.0-10.0) 10^3/ uL RBC 3.06 L (4.1-5.3) 10^6/u L Hgb 10.1 L (11.5-15.3) g/dL Hct 29.8 L (37.0-47.0) % MCV 97.4 (81-99) fL MCH 33.0 (28.0-34.0) pg MCHC 33.9 (30.0-36.0) g/dL RDW 13.7 (12.1-15.1) % Plt Count 187 (130-400) 10^3/c mm MPV 10.4 (7.4-10.4) fL Neut % (Auto) 80.8 % Lymph % (Auto) 8.2 % Beau[place] % (Auto) 9.0 % Eos % (Auto) 0.3 % Baso % (Auto) 0.1 % Neut # (Auto) 5.9 (1.8-7.7) 10^3/u L Lymph # (Auto) 0.6 L (0.8-4.8) 10^3/u L [place] # (Auto) 0.7 (0.2-0.9) 10^3/u L Eos # (Auto) 0.0 (0.0-0.8) 10^3/u L Baso # (Auto) 0.0 (0.0-0.1) 10^3/u L Nucleated RBC % (a uto) 0.3 % Nucleated RBCs # 0.0 /100WBC PT 13.20 (10.5-13.3) SECO NDS INR 0.98 (0.8-1.2) APTT 25.7 (23.9-36.7) SECO NDS Sodium 130 L (136-145) mmol/L Potassium 4.1 (3.5-5.1) mmol/L Chloride 94 L (98-107) mmol/L Carbon Dioxide 20 L (22-29) mmol/L Anion Gap 20.1 H (5-19) BUN 96 H* D (8-23) mg/dL Creatinine 2.7 H (0.5-0.9) mg/dL Glucose 422 H (65-115) mg/dL Calculated Osmolal ity 289 (285-295) mOsm/k g Calcium 8.8 (8.5-10.5) mg/dL Total Bilirubin 0.9 (0.15-1.2) mg/dL AST 17 (0-32) U/L ALT 23 (0-33) U/L Alkaline Phosphata se 118 H (35-105) IU/L Troponin T Baselin e (0-10) ng/L Troponin T 120 Min lummi (0-10) ng/L Total Protein 5.3 L (6.6-8.7) g/dL Albumin 3.2 L (3.5-5.2) g/dL Globulin 2.1 (1.3-4.6) g/dL Urine Color (Yellow) Urine Appearance (CLEAR) Urine pH (5-7) Ur Specific Gravit y (1.005-1.030) Urine Protein (Negative) Urine Glucose (UA) (Normal) Urine Ketones (Negative) Urine Blood (Negative) Urine Nitrate (Negative) Urine Bilirubin (NEGATIVE) Urine Urobilinogen (Negative) mg/dL Ur Leukocyte Sri ase (Negative) Urine RBC (0-2) /hpf Urine WBC (0-5) /hpf Ur Squamous Epith Cells (0-5) Amorphous Sediment Urine Bacteria (NONE) Hyaline Casts Serum Ketones (Negative) 12/21/19 12/21/19 12/21/19 Range/Units 13:48 13:48 15:14 WBC (4.0-10.0) 10^3/ uL RBC (4.1-5.3) 10^6/u L Hgb (11.5-15.3) g/dL Hct (37.0-47.0) % MCV (81-99) fL MCH (28.0-34.0) pg MCHC (30.0-36.0) g/dL RDW (12.1-15.1) % Plt Count (130-400) 10^3/c mm MPV (7.4-10.4) fL Neut % (Auto) % Lymph % (Auto) % Beau[place] % (Auto) % Eos % (Auto) % Baso % (Auto) % Neut # (Auto) (1.8-7.7) 10^3/u L Lymph # (Auto) (0.8-4.8) 10^3/u L [place] # (Auto) (0.2-0.9) 10^3/u L Eos # (Auto) (0.0-0.8) 10^3/u L Baso # (Auto) (0.0-0.1) 10^3/u L Nucleated RBC % (a uto) % Nucleated RBCs # /100WBC PT (10.5-13.3) SECO NDS INR (0.8-1.2) APTT (23.9-36.7) SECO NDS Sodium (136-145) mmol/L Potassium (3.5-5.1) mmol/L Chloride (98-107) mmol/L Carbon Dioxide (22-29) mmol/L Anion Gap (5-19) BUN (8-23) mg/dL Creatinine (0.5-0.9) mg/dL Glucose (65-115) mg/dL Calculated Osmolal ity (285-295) mOsm/k g Calcium (8.5-10.5) mg/dL Total Bilirubin (0.15-1.2) mg/dL AST (0-32) U/L ALT (0-33) U/L Alkaline Phosphata se (35-105) IU/L Troponin T Baselin e 44 H (0-10) ng/L Troponin T 120 Min lummi (0-10) ng/L Total Protein (6.6-8.7) g/dL Albumin (3.5-5.2) g/dL Globulin (1.3-4.6) g/dL Urine Color Yellow (Yellow) Urine Appearance Sl hazy (CLEAR) Urine pH 5 (5-7) Ur Specific Gravit y 1.020 (1.005-1.030) Urine Protein Neg (Negative) Urine Glucose (UA) 1+ (Normal) Urine Ketones Negative (Negative) Urine Blood Neg (Negative) Urine Nitrate Negative (Negative) Urine Bilirubin 1+ H (NEGATIVE) Urine Urobilinogen Norm (Negative) mg/dL Ur Leukocyte Sri ase Trace H (Negative) Urine RBC None (0-2) /hpf Urine WBC 0-4 H (0-5) /hpf Ur Squamous Epith Cells None (0-5) Amorphous Sediment 1+ Urine Bacteria 2+ H (NONE) Hyaline Casts 5-10 H Serum Ketones Negative (Negative) 12/21/19 Range/Units 15:52 WBC (4.0-10.0) 10^3/ uL RBC (4.1-5.3) 10^6/u L Hgb (11.5-15.3) g/dL Hct (37.0-47.0) % MCV (81-99) fL MCH (28.0-34.0) pg MCHC (30.0-36.0) g/dL RDW (12.1-15.1) % Plt Count (130-400) 10^3/c mm MPV (7.4-10.4) fL Neut % (Auto) % Lymph % (Auto) % Beau[place] % (Auto) % Eos % (Auto) % Baso % (Auto) % Neut # (Auto) (1.8-7.7) 10^3/u L Lymph # (Auto) (0.8-4.8) 10^3/u L [place] # (Auto) (0.2-0.9) 10^3/u L Eos # (Auto) (0.0-0.8) 10^3/u L Baso # (Auto) (0.0-0.1) 10^3/u L Nucleated RBC % (a uto) % Nucleated RBCs # /100WBC PT (10.5-13.3) SECO NDS INR (0.8-1.2) APTT (23.9-36.7) SECO NDS Sodium (136-145) mmol/L Potassium (3.5-5.1) mmol/L Chloride (98-107) mmol/L Carbon Dioxide (22-29) mmol/L Anion Gap (5-19) BUN (8-23) mg/dL Creatinine (0.5-0.9) mg/dL Glucose (65-115) mg/dL Calculated Osmolal ity (285-295) mOsm/k g Calcium (8.5-10.5) mg/dL Total Bilirubin (0.15-1.2) mg/dL AST (0-32) U/L ALT (0-33) U/L Alkaline Phosphata se (35-105) IU/L Troponin T Baselin e (0-10) ng/L Troponin T 120 Min lummi 40.35 H (0-10) ng/L Total Protein (6.6-8.7) g/dL Albumin (3.5-5.2) g/dL Globulin (1.3-4.6) g/dL Urine Color (Yellow) Urine Appearance (CLEAR) Urine pH (5-7) Ur Specific Gravit y (1.005-1.030) Urine Protein (Negative) Urine Glucose (UA) (Normal) Urine Ketones (Negative) Urine Blood (Negative) Urine Nitrate (Negative) Urine Bilirubin (NEGATIVE) Urine Urobilinogen (Negative) mg/dL Ur Leukocyte Sri ase (Negative) Urine RBC (0-2) /hpf Urine WBC (0-5) /hpf Ur Squamous Epith Cells (0-5) Amorphous Sediment Urine Bacteria (NONE) Hyaline Casts Serum Ketones (Negative) Discharge Plan Discharge Patient Disposition: Admitted As Inpatient Clinical Impression: Candidiasis of esophagus, Diabetes mellitus, Hypertension, Cervical cancer, FIGO stage EVARISTO, Anxiety, Gastroesophageal reflux disease, Acute kidney injury, Rectal fissure Condition: Stable Referrals: Chapin Keita MD [Primary Care Provider] - Coding Level of Care Code ED Corporate Affairs Manager for Chg Fwd Exam Comprehensive
[2019-12-21 14:29] LABS: Basophils % 0.1 %; Eosinophils % 0.3 %; Hematocrit 29.8 % (37.0-47.0); Hemoglobin 10.1 g/dL (11.5-15.3); Lymphocytes # 0.6 10^3/uL (0.8-4.8); Lymphocytes % 8.2 %; Mean Corpuscular HGB Conc 33.9 g/dL (30.0-36.0); Mean Corpuscular Volume 97.4 fL (81-99); Mean Platelet Volume 10.4 fL (7.4-10.4); Monocytes # 0.7 10^3/uL (0.2-0.9); Neutrophils # 5.9 10^3/uL (1.8-7.7); Neutrophils % 80.8 %; Nucleated Red Blood Cells % 0.3 %; Platelet Count 187 10^3/cmm (130-400); Red Blood Count 3.06 10^6/uL (4.1-5.3); Red Cell Distribution Width 13.7 % (12.1-15.1); White Blood Count 7.3 10^3/uL (4.0-10.0)
[2019-12-21 14:38] LABS: INR 0.98 (0.8-1.2)
[2019-12-21 14:39] LABS: Partial Thromboplastin Time 25.7 SECONDS (23.9-36.7)
[2019-12-21 14:48] LABS: Alanine Aminotransferase 23 U/L (0-33); Albumin Level 3.2 g/dL (3.5-5.2); Alkaline Phosphatase 118 IU/L (35-105); Anion Gap 20.1 (5-19); Aspartate Amino Transferase 17 U/L (0-32); Calcium 8.8 mg/dL (8.5-10.5); Carbon Dioxide 20 mmol/L (22-29); Chloride 94 mmol/L (98-107); Globulin 2.1 g/dL (1.3-4.6); Glucose 422 mg/dL (65-115); Osmolality Calculated 289 mOsm/kg (285-295); Potassium 4.1 mmol/L (3.5-5.1); Sodium 130 mmol/L (136-145); Total Bilirubin 0.9 mg/dL (0.15-1.2); Total Protein 5.3 g/dL (6.6-8.7)
[2019-12-21 14:52] LABS: Blood Urea Nitrogen 96 mg/dL (8-23)
[2019-12-21 15:02] LABS: Troponin(5th) Baseline 44 ng/L (0-10)
[2019-12-21 15:39] LABS: Ketone (Acetest) Serum Negative (Negative)
--- NOTE | 2019-12-21 15:45 | ECG_ITS ---
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 Measurements Intervals Tracy Rate: 95 P: 33 TN: 169 QRS: 33 QRSD: 101 T: 52 QT: 345 QTc: 436 Interpretive Statements SINUS RHYTHM LOW QRS VOLTAGE IN EXTREMITY LEADS [QRS DEFLECTION < 0.5 mV IN LIMB LEADS] Compared to ECG 05/03/2019 10:09:25 Low QRS voltage now present Myocardial infarct finding no longer present ST (T wave) deviation no longer present Electronically Signed On 12-21-2019 22:57:11 CDT by Temitope Cantrell M.D. [id number]
[2019-12-21 15:48] LABS: Urine Appearance SL Hazy (CLEAR); Urine Color Yellow (Yellow); pH Urine 5 (5-7)
[2019-12-21 15:49] LABS: Add Urine Microscopic? YES; Bilirubin Urine 1+ (NEGATIVE); Blood Urine Neg (Negative); Glucose Urine UA 1+ (Normal); Ketones Urine Negative (Negative); Leukocyte Esterase Urine Trace (Negative); Nitrate Urine Negative (Negative); Protein Urine Neg (Negative); Urobilinogen Urine Norm (Negative)
[2019-12-21 15:57] LABS: Add Urine Culture? No; Amorphous Sediment Urine 1+; Bacteria Urine 2+; WBC Urine 0-4 /hpf (0-5)
[2019-12-21 16:20] LABS: Troponin 5 2HR 40.35 ng/L (0-10)
[2019-12-21 16:25] LABS: Troponin 5 2HR Delta -3.65 ABS# (0-10)
--- NOTE | 2019-12-21 19:06 | PC.NURSE ---
Patient report received from ALVARO Blue and care transferred to ALVARO Mcmillan
--- NOTE | 2019-12-21 19:25 | P.HP_ITS ---
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 She has noted progressive generalized weakness to the point that she can barely get out of bed and is unable to ambulate, gets quite dizzy when trying to stay upright. She has not had much in the way of oral intake x 3 days. She denies fever/chills, cough, SOB, chest pain, syncope, changes in her urination and bowel habits. She has been unable to consistently take her medications. She has been following up with Dr. Downey due to her hx of cervical cancer, she completed radiation treatment on 09/03/2019 and was trialed on cisplatin chemotherapy with noted toxicity, weakness, anorexia and nausea as well as worsening pancytopenia that required transfusion of blood products. She is scheduled to have a restaging PET/CT scan to determine next steps in her management. Work-up in the ER indicates a normal white count at 7.3, anemia with a hemoglobin of 10.1, sodium of 130, BUN of 96, creatinine of 2.7, blood sugar of 422, troponins are mildly elevated though no significant delta noted, ALP is 118 with otherwise normal LFTs. Urinalysis is positive for bacteria, trace leukocyte esterase and hyaline casts. She is receiving IV fluid hydration and has received a dose of fluconazole. She has noted apparent oral thrush and high suspicion for esophageal involvement as well given odynophagia and dysphasia in underlying immunocompromise. She has been admitted for further IV fluid hydration due to clinical evidence of dehydration as well as treatment of oral and esophageal candidiasis. Discussed CODE STATUS and patient does not want resuscitative measures or mechanical ventilation. Difficulty establishing peripheral IV access so requested central line placement. Review of Systems Const: Reports: change in appetite (decreased appetite) and fatigue; Denies: fever(s) or chills Eyes: Denies: change in vision ENMT: Reports: odynophagia, oral sores and dry mouth Card: Denies: chest pain, swelling of feet/ankles or lightheadedness Resp: Denies: dyspnea, productive cough or non-productive cough GI: Reports: dysphagia and other (sensation of food stuck in throat); Denies: abdominal pain, nausea, vomiting, hematemesis, heartburn, diarrhea or hematochezia : Denies: difficulty voiding, dysuria or urinary frequency Musc: Denies: back pain Skin/Breast: Denies: rash Neuro: Reports: difficulty walking; Denies: numbness in extremities or weakness in extremities Psych: Denies: anxiety Medications/Allergies Home Medications Medication Instructions Recorded Confirmed Last Taken Type alprazolam 0.5 mg PO BID PRN 12/21/19 12/21/19 12/20/19 History citalopram 40 mg PO DAILY 12/21/19 12/21/19 12/20/19 History dexamethasone 4 mg PO DAILY 12/21/19 12/21/19 12/20/19 History diphenoxylate-atropine 1 tab PO Q4H PRN 12/21/19 12/21/19 12/21/19 History hydrocodone-acetaminophen 1 tab PO Q6H PRN 12/21/19 12/21/19 12/21/19 History levothyroxine 150 mcg PO DAILY 12/21/19 12/21/19 12/20/19 History lisinopril-hydrochlorothiazide 1 tab PO DAILY 12/21/19 12/21/19 12/20/19 History lorazepam 1 mg PO TID PRN 12/21/19 12/21/19 12/21/19 History metformin 1,000 mg PO DAILY 12/21/19 12/21/19 12/20/19 History pantoprazole 20 mg PO DAILY PRN 12/21/19 12/21/19 12/21/19 History rosuvastatin [Crestor] 40 mg PO BEDTIME 12/21/19 12/21/19 12/20/19 History tramadol 50 mg PO Q6H PRN 12/21/19 12/21/19 12/20/19 History Allergies Allergy/AdvReac Type Severity Reaction Status Date / Time Penicillins Allergy Unknown Verified 12/21/19 14:35 PFSH Acute PFSH: Medical History Anxiety Cervical cancer, FIGO stage EVARISTO Diabetes mellitus Gastroesophageal reflux disease Hypertension Hypothyroidism Morbid obesity Surgical History H/O pelvic surgery Resection of cervical cancer and associated metastasis Family History Mother CAD (coronary artery disease) Father Aneurysm brain Sister Cancer breast cancer Family/Other Cancer breast cancer in niece Social History (Updated 12/21/19 @ 19:44 by La Franco MD) Smoking and tobacco status: never smoked Alcohol intake: never Substance/Drug Use: never Household members: children Housing: House Vitals/I&O/Wt Last Vital Signs Temp 98.9 F 12/21/19 13:24 Pulse 95 12/21/19 15:30 Resp 18 12/21/19 15:30 BP 101/50 12/21/19 15:04 Pulse Ox 96 12/21/19 15:30 Weight last 48 hrs Weight 90.718 kg Physical Exam Const: COMMON NORMALS: no acute distress and patient oriented x3 GENERAL APPEARANCE: cooperative, comfortable and frail appearing NUTRITIONAL APPEARANCE: obese morbidly obese ORIENTATION/CONSCIOUSNESS: Yes awake HENMT: COMMON NORMALS: normocephalic, atraumatic and hearing grossly normal bilaterally HEAD & SCALP: normocephalic and atraumatic MOUTH: moist mucous membranes abnormal Details: parched TEETH & GINGIVA: Yes dentures OTHER: -oral thrush Eye: COMMON NORMALS: Equal, round and reactive pupils present, EOMs intact bilaterally and conjunctivae normal CONJUNCTIVA: Yes conjunctivae normal PUPIL: Yes Equal, round and reactive pupils present Neck/C-Spine: COMMON NORMALS: full ROM GENERAL: Yes normal visual inspection and Yes trachea midline Chest: CHEST: Yes Symmetrical chest wall rise Resp: COMMON NORMALS: normal respiratory effort, No retractions, No use of accessory muscles and clear to auscultation bilaterally EFFORT & INSPECTION: Yes able to speak in complete sentences, Yes symmetric chest movement and No tachypneic AUSCULTATION: clear to auscultation bilaterally OTHER: -on RA Cardio: COMMON NORMALS: regular rate, regular rhythm, S1 normal heart sound present, S2 normal heart sound present and No murmurs present (Cardio) RATE: tachycardic RHYTHM: regular rhythm HEART SOUNDS: S1 normal heart sound present and S2 normal heart sound present GI: COMMON NORMALS: Normal to inspection, nondistended, normoactive bowel s ounds present, Soft to palpation and non-tender INSPECTION: Yes central obesity PALPATION: Yes Soft to palpation RECTAL EXAM: External hemorrhoid(s) present : COMMON NORMALS: Yes normal appearance of the vagina (dried stool on pubic area) Extremity: COMMON NORMALS: normal to inspection, full ROM, no clubbing, cyanosis or edema and no pedal edema Neuro: COMMON NORMALS: patient oriented x3, moves all extremities, no focal motor deficits and no sensory deficits noted SENSORIUM/ORIENTATION: Yes alert Psych: COMMON NORMALS: mental status grossly normal, Normal thought process present, cooperative, normal affect and speech normal SPEECH: Yes normal speech THOUGHT PROCESS: Normal thought process present Skin: COMMON NORMALS: no rashes or lesions noted, no jaundice, no petechiae and no mottling GENERAL SKIN EXAM: no rashes or lesions noted Data : 12/21/19 13:48 12/21/19 13:48 Micro: Microbiology 12/21/19 14:40 ESSIE Preparation - Final Mouth A&P Assessment and plan (1) Candidiasis of esophagus: -apparent oral lesions on examination; ongoing odynophagia, dysphagia -opportunistic infection in immunocompromised patient -will load with fluconazole 400 mg x 1 then continue 200 mg once daily -IVF hydration as clinically dehydrated -NPO for now due to difficulty swallowing -if not improving, may need endoscopic evaluation -nystatin swish and swallow, magic mouthwash -pain control as needed Status: Acute (2) Dehydration: -noted hyaline casts, hyponatremia, tachycardia -IVF hydration particularly with poor oral intake Status: Acute (3) Rectal fissure: -on exam with some intermittent bleeding -monitor H/H Status: Acute (4) Acute kidney injury: -secondary to dehydration from poor oral intake -IVF hydration -monitor renal function, avoid nephrotoxins, renally dose meds -baseline Cr is around 1-1.2 -EFREN on CKD stage 2 Status: Acute (5) Cervical cancer, FIGO stage EVARISTO: -poorly differentiated squamous cell cervical cancer -completed radiation therapy on 09/2019 -follows up with Dr. Ybarra and Dr. Downey -has received Cisplatin chemotherapy with noted toxicity including nausea, anorexia, worsening pancytopenia requiring transfusion -pending restaging PET/CT to determine next steps in management Status: Chronic (6) Chronic anemia: -chronic normocytic anemia -baseline Hg is around 10 -monitor H/H Status: Chronic (7) Hypothyroidism: -resume levothyroxine if able to swallow Status: Chronic Qualifiers: Hypothyroidism type: unspecified Qualified Code(s): E03.9 - Hyp othyroidism, unspecified (8) Gastroesophageal reflux disease: -PPI IV Status: Chronic Qualifiers: Esophagitis presence: esophagitis presence not specified Qualified Code(s): K21.9 - Gastro-esophageal reflux disease without esophagitis (9) Anxiety: -anxiolytics PRN Status: Chronic (10) Hypertension: -normotensive, continue to monitor vital signs -hold oral antihypertensives due to dehydration, renal impairment (on ACEi-HCTZ combination) Status: Chronic Qualifiers: Hypertension type: essential hypertension Qualified Code(s): I10 - Essential (primary) hypertension (11) Diabetes mellitus: -A1c-6.6 (09/2019) -Accuchecks, ISS, hypoglycemia precautions Status: Chronic Qualifiers: Diabetes mellitus type: type 2 Diabetes mellitus group home insulin use: without termite exterminator helper use Diabetes mellitus complication status: without complication Qualified Code(s): E11.9 - Type 2 diabetes mellitus without complications (12) Morbid obesity: -BMI-32 kg/m2 Status: Chronic Additional A&P Information -Hyperlipidemia; resume statin -GI ppx with PPI -DVT ppx with heparin; cautiously due to underlying anemia -Dispo: home -Code status: DNR/DNI; discussed with patient at bedside Attestations Medical Necessity Statement*: Sharon Sotelo's hospital stay will require greater than 2 midnights for management of esophageal candidiasis with associated dysphagia, odynophagia as well as dehydration requiring IV antifungal treatment and IVF hydration. Time Spent in Patient Care: Greater than 35 minutes (>than 50% of time spent in counselling and/or direct pt care on unit) . Coding Level of Care Code Acute Book Reviewer for [facility] Fwd Diagnoses Candidiasis of esophagus B37.81 Dehydration E86.0 Rectal fissure K60.2 Acute kidney injury N17.9 Cervical cancer, FIGO stage EVARISTO C53.9 Chronic anemia D64.9 Hypothyroidism E03.9 Hypothyroidism type: unspecified Gastroesophageal reflux disease K21.9 Esophagitis presence: esophagitis presence not specified Anxiety F41.9 Hypertension I10 Hypertension type: essential hypertension Diabetes mellitus E11.9 Diabetes mellitus type: type 2 Diabetes mellitus group home insulin use: without termite exterminator helper use Diabetes mellitus complication status: without complication Morbid obesity E66.01
--- NOTE | 2019-12-21 19:45 | ECG_ITS ---
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 Measurements Intervals Williams Rate: 104 P: 29 NC: 144 QRS: 29 QRSD: 102 T: 40 QT: 334 QTc: 440 Interpretive Statements SINUS TACHYCARDIA LOW QRS VOLTAGE IN EXTREMITY LEADS [QRS DEFLECTION < 0.5 mV IN LIMB LEADS] Compared to ECG 12/21/2019 16:15:42 Sinus rhythm no longer present Electronically Signed On 12-21-2019 22:56:12 CDT by Temitope Cantrell M.D. [id number]
[2019-12-21 19:55] LABS: Glucose Point of Care 314 mg/dL (70-110)
[2019-12-21] MEDS: insulin regular-human 100 units/1 mL 10 UNIT IVP (20:37)
[2019-12-21] MEDS: fluconazole premix 100 MG in empty flexible container 1 EACH 50 MG IV (20:42)
[2019-12-21] MEDS: sodium chloride 0.9% 1,000 ML 999 ML IV (20:42)
[2019-12-21 21:41] LABS: Glucose Point of Care 310 mg/dL (70-110)
[2019-12-21] MEDS: heparin 5,000 unit/mL INJ 1 mL 5000 UNIT SUBCUT (21:51)
[2019-12-21] MEDS: nystatin 100,000 unit/mL UDC 5 mL 500000 UNIT PO (21:51)
[2019-12-21] MEDS: atorvastatin 40 mg Tablet 8 MG PO (21:52)
[2019-12-21] MEDS: pantoprazole 40 mg SDV IVP (21:52)
[2019-12-21] MEDS: dextrose 5%-sod chloride 0.9% 1,000 ML 125 ML IV (21:53)
[2019-12-21] MEDS: acetaminophen 325 mg Tablet 650 MG PO (21:54)
[2019-12-22] VITALS (7 sets, daily range): BP systolic 100–133; BP diastolic 59–76; PULSE 85–128; RESP 16–18; TEMP 36.6–37.1; O2SAT 96–98
[2019-12-22] MEDS: fluconazole premix 400 MG/200 ML PIGGYBACK 200 MG IV (00:29)
[2019-12-22 04:56] LABS: Basophils % 0.2 %; Eosinophils % 0.5 %; Hematocrit 28.9 % (37.0-47.0); Hemoglobin 9.6 g/dL (11.5-15.3); Lymphocytes # 0.7 10^3/uL (0.8-4.8); Lymphocytes % 12.2 %; Mean Corpuscular HGB Conc 33.2 g/dL (30.0-36.0); Mean Corpuscular Volume 99.3 fL (81-99); Mean Platelet Volume 9.8 fL (7.4-10.4); Monocytes # 0.6 10^3/uL (0.2-0.9); Monocytes % 10.1 %; Neutrophils # 4.3 10^3/uL (1.8-7.7); Neutrophils % 75.4 %; Nucleated Red Blood Cells % 0 %; Platelet Count 159 10^3/cmm (130-400); Red Blood Count 2.91 10^6/uL (4.1-5.3); Red Cell Distribution Width 13.6 % (12.1-15.1); White Blood Count 5.7 10^3/uL (4.0-10.0)
[2019-12-22 05:21] LABS: Alanine Aminotransferase 24 U/L (0-33); Alkaline Phosphatase 113 IU/L (35-105); Anion Gap 16.3 (5-19); Aspartate Amino Transferase 20 U/L (0-32); Blood Urea Nitrogen 61 mg/dL (8-23); Calcium 8.8 mg/dL (8.5-10.5); Carbon Dioxide 20 mmol/L (22-29); Chloride 103 mmol/L (98-107); Globulin 2.7 g/dL (1.3-4.6); Glucose 120 mg/dL (65-115); Osmolality Calculated 282 mOsm/kg (285-295); Potassium 3.3 mmol/L (3.5-5.1); Sodium 136 mmol/L (136-145); Total Bilirubin 0.6 mg/dL (0.15-1.2); Total Protein 5.7 g/dL (6.6-8.7)
[2019-12-22 06:07] LABS: Glucose Point of Care 152 mg/dL (70-110)
[2019-12-22] MEDS: heparin 5,000 unit/mL INJ 1 mL 5000 UNIT SUBCUT ×2 (07:41→17:05)
[2019-12-22] MEDS: levothyroxine 150 mcg Tablet PO (08:20)
[2019-12-22] MEDS: dexamethasone 4 mg Tablet PO (08:20)
[2019-12-22] MEDS: nystatin 100,000 unit/mL UDC 5 mL 500000 UNIT PO ×4 (08:20→21:07)
[2019-12-22] MEDS: pantoprazole 40 mg SDV IVP ×2 (08:20→21:04)
[2019-12-22] MEDS: fluconazole premix 200 MG/100 ML PREMIX 100 MG IV (08:34)
--- NOTE | 2019-12-22 11:01 | PC.CHAP ---
Pastoral Care Encounter/Spiritual Assessment Type of Contact [] Declined biztalk architect visit [] Patient/Family/Request visit [] Outpatient visit [] Follow-up visit [] Physician referral [] Code/Alert [X] Routine visit [] Staff referral [] Actively dying [] Patient sleeping [] Family support [] [] Out of room [] Palliative care [] [] Receiving care in room [] Pre-surgical visit [] Trauma [] Long length of stay [] ICU visit [] Other: Relational/Emotional Strength [] Patient feels connected with others/family/visitors/staff [] Distress [] Loneliness/isolation [] Abandonment Spirituality of Patient [] Person of Rebekah [] Attends Shinto of their Rebekah [] Believes in Prayer [] Reads Bible or Mosque materials [] There are Spiritual issues to be addressed Human Capital Manager Interventions [X] Prayer [] Active listening [] Non-anxious presence [] Spiritual/emotional support [] Crisis/trauma care [] Spiritual counseling [] Bereavement support [] Provided bereavement packet [] Provided Bible/devotional materials [] Provided toy/stuffed animal, coloring book to patient or family member [] Provided Communion [] Anointing/[place] [] Salvation [X] Completed spiritual assessment [] Other: Impact on Illness or Injury [] Angry [] Fearful [] Anxious [] Often cries [] Exhaustion [] Unable to work [] Unable to attend cheondoism [] Unable to walk/stand [] Unable to read [] Unable to drive [] Unable to eat/drink [] Unable to sleep [] Unable to be with family [] Patient intubated [] Other: Summary: Ms. Stuart is very shy for lack of a better term. We met briefly, and i tried to engage in conversation, but it was driven by me. So, i shifted to assessing support system--she has a daughter who is supportive. Offered prayer, which she accepted. (Her hx is of cervical cancer dx in July. She has been through tx and doing well until this setback. Developed thrush, which led to pain when eating, which led to decreased intake, which led to weakness.) Time spent with patient: 5 mins
[2019-12-22 11:02] LABS: Glucose Point of Care 385 mg/dL (70-110)
[2019-12-22 17:09] LABS: Glucose Point of Care 425 mg/dL (70-110)
[2019-12-22 17:15] LABS: Glucose Point of Care 472 mg/dL (70-110)
--- NOTE | 2019-12-22 17:16 | PM.PN ---
Subjective Subjective: Interval history: Patient seen and examined, resting in bed, reports feeling better, has been up with physical therapy and ambulating to the bathroom with a walker. Is requesting something more substantial to eat, so far has tolerated clear liquids without difficulty though continues to have a sensation of something stuck in her throat. Denies pain with swallowing today. Noted improved renal function, accucheks noted. Medications: Reviewed: Yes Medication Review Details: Active Medications Generic Name Dose Route Start Last Admin Trade Name Freq PRN Reason Stop Dose Admin Acetaminophen 650 mg 12/21/19 20:57 12/21/19 21:54 Tylenol PO 650 mg Q6H PRN Administration Mild/Mod Pain Or Temp >/= 101 Hydrocodone Bitart /Acetaminophen 1 tab 12/21/19 20:57 [place] 7.5-325 Mg PO Q6H PRN Pain Atorvastatin Calci um 8 mg 12/21/19 21:00 12/21/19 21:52 Lipitor PO 8 mg BEDTIME JOAQUÍN Administration Lidocaine HCl 1.66 7 ml/ 0 ml 12/21/19 20:57 Diphenhydramine HC l 4.165 mg/ MUCOUS MEM Al Hydrox/Mg [place] x/ Q4H PRN Simethicone 1.667 ml MOUTH PAIN Dexamethasone 4 mg 12/22/19 09:00 12/22/19 08:20 Decadron PO 4 mg DAILY JOAQUÍN Administration Dextrose 25 ml 12/21/19 20:57 D50w IVP ONCE PRN hypoglycemia prot ocol Protocol Dextrose 50 ml 12/21/19 20:57 D50w IVP PRN PRN hypoglycemia prot ocol Protocol Diphenoxylate HCl/ Atropine 1 tab 12/21/19 20:57 Lomotil PO Q4H PRN Diarrhea Glucagon 1 mg 12/21/19 20:57 Glucagen IM ONCE PRN Adult Acute Hypog lycemia Prot. Protocol Heparin Sodium (Be ef Lung) 5,000 unit 12/21/19 20:57 12/22/19 17:05 Heparin SUBCUT 5,000 unit Q8H JOAQUÍN Administration Dextrose/Sodium Ch loride 1,000 mls @ 125 m ls/hr 12/21/19 20:00 12/22/19 14:35 Dextrose 5%-Sod Chloride 0.9% IV 125 mls/hr .Q8H JOAQUÍN Infusion Fluconazole 200 mg in 100 mls @ 100 mls/hr 12/22/19 09:00 12/22/19 08:34 Diflucan Premix IV 100 mls/hr Q24H JOAQUÍN Administration Dextrose 500 mls @ 100 mls /hr 12/21/19 20:57 D5w IV ONCE PRN Adult Acute Hypog lycemia Prot Protocol Insulin Aspart 0 unit 12/21/19 21:00 12/22/19 11:32 Novolog SUBCUT 12 unit WM&BEDTIME JOAQUÍN Administration Protocol Levothyroxine Sodi um 150 mcg 12/22/19 09:00 12/22/19 08:20 Synthroid PO 150 mcg DAILY JOAQUÍN Administration Lorazepam 1 mg 12/21/19 20:57 Ativan IVP Q8H PRN ANXIETY Morphine Sulfate 2 mg 12/21/19 20:57 Morphine IVP Q4H PRN SEVERE PAIN Non-Formulary Medi cation 40 mg 12/22/19 09:00 12/22/19 08:20 Citalopram PO Not Given DAILY JOAQUÍN Nystatin 500,000 unit 12/21/19 21:00 12/22/19 17:05 Nystatin PO 500,000 unit QID JOAQUÍN Administration Ondansetron HCl 4 mg 12/21/19 20:57 Zofran IVP Q6H PRN vomiting, or N/V if npo Pantoprazole Sodiu m 40 mg 12/21/19 20:57 12/22/19 08:20 Protonix IVP 40 mg Q12H JOAQUÍN Administration Penicillins Allergy (Verified 12/21/19 14:35) Unknown Vitals/I&O/Wt Last Vital Signs Temp 97.8 F 12/22/19 15:58 Pulse 100 12/22/19 15:58 Resp 16 12/22/19 15:58 BP 133/76 12/22/19 15:58 Pulse Ox 98 12/22/19 15:58 12/22/19 12/22/19 12/22/19 06:59 14:59 22:59 Intake Total 905 / 905 Output Total 600 / 600 Balance -600 / -360 905 / 905 Weight last 48 hrs Weight 95.164 kg Weight 90.718 kg Physical Exam Const: COMMON NORMALS: no acute distress, patient oriented x3 and alert GENERAL APPEARANCE: cooperative, comfortable and frail appearing NUTRITIONAL APPEARANCE: obese morbidly obese ORIENTATION/CONSCIOUSNESS: Yes awake HENMT: COMMON NORMALS: normocephalic, atraumatic and hearing grossly normal bilaterally HEAD & SCALP: normocephalic and atraumatic MOUTH: moist mucous membranes abnormal Details: parched TEETH & GINGIVA: Yes dentures OTHER: -oral thrush; improved Eye: COMMON NORMALS: Equal, round and reactive pupils present, EOMs intact bilaterally and conjunctivae normal CONJUNCTIVA: Yes conjunctivae normal PUPIL: Yes Equal, round and reactive pupils present Neck/C-Spine: COMMON NORMALS: full ROM GENERAL: Yes normal visual inspection and Yes trachea midline Chest: CHEST: Yes Symmetrical chest wall rise Resp: COMMON NORMALS: normal respiratory effort, No retractions, No use of accessory muscles and clear to auscultation bilaterally EFFORT & INSPECTION: Yes able to speak in complete sentences, Yes symmetric chest movement and No tachypneic AUSCULTATION: clear to auscultation bilaterally OTHER: -on RA Cardio: COMMON NORMALS: regular rate, regular rhythm, S1 normal heart sound present, S2 normal heart sound present and No murmurs present (Cardio) RATE: regular rate and tachycardic RHYTHM: regular rhythm HEART SOUNDS: S1 normal heart sound present and S2 normal heart sound present GI: COMMON NORMALS: Normal to inspection, nondistended, normoactive bowel sounds present, Soft to palpation and non-tender INSPECTION: Yes central obesity PALPATION: Yes Soft to palpation RECTAL EXAM: External hemorrhoid(s) present : COMMON NORMALS: Yes normal appearance of the vagina (dried stool on pubic area) Extremity: COMMON NORMALS: normal to inspection, full ROM, no clubbing, cyanosis or edema and no pedal edema Neuro: COMMON NORMALS: patient oriented x3, moves all extremities, no focal motor deficits and no sensory deficits noted SENSORIUM/ORIENTATION: Yes alert Psych: COMMON NORMALS: mental status grossly normal, Normal thought process present, cooperative, normal affect and speech normal SPEECH: Yes normal speech THOUGHT PROCESS: Normal thought process present Skin: COMMON NORMALS: no rashes or lesions noted, no jaundice, no petechiae and no mottling GENERAL SKIN EXAM: no rashes or lesions noted Data : 12/22/19 04:26 12/22/19 04:26 Micro: Microbiology 12/21/19 14:40 ESSIE Preparation - Final Mouth A&P Assessment and plan (1) Candidiasis of esophagus: -apparent oral lesions on examination; ongoing odynophagia, dysphagia; symptoms improved -opportunistic infection in immunocompromised patient -loaded with fluconazole 400 mg x 1, now on 200 mg once daily -IVF hydration as clinically dehydrated -tolerating CLD, will advance to GI soft diet per her request -if not improving, may need endoscopic evaluation -nystatin swish and swallow, magic mouthwash -pain control as needed -request ST evaluation for formal swallow eval Status: Acute (2) Dehydration: -noted hyaline casts, hyponatremia, tachycardia -IVF hydration particularly with poor oral intake Status: Acute (3) Rectal fissure: -on exam with some intermittent bleeding -monitor H/H; stable Status: Acute (4) Acute kidney injury: -secondary to dehydration from poor oral intake -IVF hydration -continue to monitor renal function, avoid nephrotoxins, renally dose meds. Improving renal function -baseline Cr is around 1-1.2 -EFREN on CKD stage 2 Status: Acute (5) Cervical cancer, FIGO stage EVARISTO: -poorly differentiated squamous cell cervical cancer -completed radiation therapy on 09/2019 -follows up with Dr. Ybarra and Dr. Downey -has received Cisplatin chemotherapy with noted toxicity including nausea, anorexia, worsening pancytopenia requiring transfusion -pending restaging PET/CT to determine next steps in management Status: Chronic (6) Chronic anemia: -chronic normocytic anemia -baseline Hg is around 10 -monitor H/H; stable Status: Chronic (7) Hypothyroidism: -on levothyroxine if able to swallow Status: Chronic Qualifiers: Hypothyroidism type: unspecified Qualified Code(s): E03.9 - Hypothyroidism, unspecified (8) Gastroesophageal reflux disease: -PPI IV Status: Chronic Qualifiers: Esophagitis presence: esophagitis presence not specified Qualified Code(s): K21.9 - Gastro-esophageal reflux disease without esophagitis (9) Anxiety: -anxiolytics PRN Status: Chronic (10) Hypertension: -normotensive, continue to monitor vital signs -continue to hold oral antihypertensives due to dehydration, renal impairment (on ACEi-HCTZ combination) Status: Chronic Qualifiers: Hypertension type: essential hypertension Qualified Code(s): I10 - Essential (primary) hypertension (11) Diabetes mellitus: -A1c-6.6 (09/2019) -Accuchecks, ISS, hypoglycemia precautions Status: Chronic Qualifiers: Diabetes mellitus complication status: without complication Diabetes mellitus senior living insulin use: without senior living use Diabetes mellitus type: type 2 Qualified Code(s): E11.9 - Type 2 diabetes mellitus without complications (12) Morbid obesity: -BMI-34 kg/m2 Status: Chronic Additional A&P Information -Hyperlipidemia; on statin -GI ppx with PPI -DVT ppx with heparin; cautiously due to underlying anemia -Dispo: home -Code status: DNR/DNI; discussed with patient at bedside Attestations Medical Necessity Statement*: Patient requires hospitalization for continued management of oral candidiasis, pending improved PO tolerance Time Spent in Patient Care: 16 - 35 minutes (>than 50% of time spent in counselling and/or direct pt care on unit). Coding Level of Care Code Acute Fleet Assistant for [facility] Jairod Diagnoses Candidiasis of esophagus B37.81 Dehydration E86.0 Rectal fissure K60.2 Acute kidney injury N17.9 Cervical cancer, FIGO stage EVARIST[place] C53.9 Chronic anemia D64.9 Hypothyroidism E03.9 Hypothyroidism type: unspecified Gastroesophageal reflux disease K21.9 Esophagitis presence: esophagitis presence not specified Anxiety F41.9 Hypertension I10 Hypertension type: essential hypertension Diabetes mellitus E11.9 Diabetes mellitus complication status: without complication Diabetes mellitus long winder tender insulin use: without senior living use Diabetes mellitus type: type 2 Morbid obesity E66.01
[2019-12-22] MEDS: diphenoxylate/atropine Tablet 1 TAB PO (17:56)
[2019-12-22 20:39] LABS: Glucose Point of Care 454 mg/dL (70-110)
[2019-12-22] MEDS: dextrose 5%-sod chloride 0.9% 1,000 ML 125 ML IV (21:04)
[2019-12-22] MEDS: atorvastatin 40 mg Tablet 8 MG PO (21:05)
[2019-12-22] MEDS: insulin glargine 100 units/1 mL 20 UNIT SUBCUT (21:06)
[2019-12-23] MEDS: dextrose 5%-sod chloride 0.9% 1,000 ML 125 ML IV (03:21)
[2019-12-23] MEDS: heparin 5,000 unit/mL INJ 1 mL 5000 UNIT SUBCUT ×3 (03:22→21:13)
[2019-12-23 04:00] VITALS: BP 126/67; PULSE 76; RESP 18; TEMP 36.5; O2SAT 97
[2019-12-23 04:19] LABS: Basophils % 0.2 %; Hematocrit 28.2 % (37.0-47.0); Hemoglobin 8.8 g/dL (11.5-15.3); Lymphocytes # 0.4 10^3/uL (0.8-4.8); Lymphocytes % 8.8 %; Mean Corpuscular HGB Conc 31.2 g/dL (30.0-36.0); Mean Corpuscular Hemoglobin 32.5 pg (28.0-34.0); Mean Corpuscular Volume 104.1 fL (81-99); Mean Platelet Volume 9.9 fL (7.4-10.4); Monocytes # 0.3 10^3/uL (0.2-0.9); Monocytes % 7.2 %; Neutrophils # 3.5 10^3/uL (1.8-7.7); Neutrophils % 81.9 %; Nucleated Red Blood Cells % 0 %; Platelet Count 142 10^3/cmm (130-400); Red Blood Count 2.71 10^6/uL (4.1-5.3); Red Cell Distribution Width 13.7 % (12.1-15.1); White Blood Count 4.3 10^3/uL (4.0-10.0)
[2019-12-23 04:39] LABS: Anion Gap 15.9 (5-19); Blood Urea Nitrogen 39 mg/dL (8-23); Calcium 9.2 mg/dL (8.5-10.5); Carbon Dioxide 18 mmol/L (22-29); Chloride 111 mmol/L (98-107); Glucose 204 mg/dL (65-115); Osmolality Calculated 295 mOsm/kg (285-295); Potassium 3.9 mmol/L (3.5-5.1); Sodium 141 mmol/L (136-145)
[2019-12-23 06:56] LABS: Glucose Point of Care 259 mg/dL (70-110)
[2019-12-23 07:23] VITALS: BP 131/78; PULSE 79; RESP 16; TEMP 36.5; O2SAT 98
[2019-12-23] MEDS: levothyroxine 150 mcg Tablet PO (08:02)
[2019-12-23] MEDS: pantoprazole 40 mg SDV IVP ×2 (08:02→21:19)
[2019-12-23] MEDS: dexamethasone 4 mg Tablet PO (08:02)
[2019-12-23] MEDS: nystatin 100,000 unit/mL UDC 5 mL 500000 UNIT PO ×4 (08:02→21:12)
[2019-12-23] MEDS: fluconazole premix 200 MG/100 ML PREMIX 100 MG IV (08:03)
[2019-12-23 11:09] VITALS: BP 136/76; PULSE 80; RESP 16; TEMP 36.8; O2SAT 97
[2019-12-23 11:40] LABS: Glucose Point of Care 406 mg/dL (70-110)
[2019-12-23] MEDS: ondansetron 2 mg/ML SDV 2 mL 4 MG IVP (11:48)
--- NOTE | 2019-12-23 12:18 | P.PN_ITS ---
Subjective Subjective: Interval history: Reports feeling better today, has been able to tolerate GI soft diet without difficulty, did well with speech evaluation and has been cleared for regular diet and regular liquids. Hemodynamically stable, afebrile, on room air. Noted drop in hemoglobin which is likely dilutional. Continued improvement in renal function. Denies odynophagia, swallowing is much easier today. Oral lesions are almost completely resolved. Accu-Cheks reviewed. Medications: Reviewed: Yes Medication Review Details: Active Medications Generic Name Dose Route Start Last Admin Trade Name Freq PRN Reason Stop Dose Admin Acetaminophen 650 mg 12/21/19 20:57 12/21/19 21:54 Tylenol PO 650 mg Q6H PRN Administration Mild/Mod Pain Or Temp >/= 101 Atorvastatin Calci um 8 mg 12/21/19 21:00 12/22/19 21:05 Lipitor PO 8 mg BEDTIME JOAQUÍN Administration Lidocaine HCl 1.66 7 ml/ 0 ml 12/21/19 20:57 Diphenhydramine HC l 4.165 mg/ MUCOUS MEM Al Hydrox/Mg [place] x/ Q4H PRN Simethicone 1.667 ml MOUTH PAIN Dexamethasone 4 mg 12/22/19 09:00 12/23/19 08:02 Decadron PO 4 mg DAILY JOAQUÍN Administration Dextrose 25 ml 12/21/19 20:57 D50w IVP ONCE PRN hypoglycemia prot ocol Protocol Dextrose 50 ml 12/21/19 20:57 D50w IVP PRN PRN hypoglycemia prot ocol Protocol Diphenoxylate HCl/ Atropine 1 tab 12/21/19 20:57 12/22/19 17:56 Lomotil PO 1 tab Q4H PRN Administration Diarrhea Fluconazole 200 mg 12/24/19 09:00 Diflucan Tab PO DAILY JOAQUÍN Glucagon 1 mg 12/21/19 20:57 Glucagen IM ONCE PRN Adult Acute Hypog lycemia Prot. Protocol Heparin Sodium (Be ef Lung) 5,000 unit 12/21/19 20:57 12/23/19 11:48 Heparin SUBCUT 5,000 unit Q8H JOAQUÍN Administration Dextrose/Sodium Ch loride 1,000 mls @ 75 ml s/hr 12/21/19 20:00 12/23/19 08:27 Dextrose 5%-Sod Chloride 0.9% IV 75 mls/hr .[id number] JOAQUÍN Infusion Dextrose 500 mls @ 100 mls /hr 12/21/19 20:57 D5w IV ONCE PRN Adult Acute Hypog lycemia Prot Protocol Insulin Aspart 0 unit 12/21/19 21:00 12/23/19 11:48 Novolog SUBCUT 14 unit WM&BEDTIME JOAQUÍN Administration Protocol Insulin Aspart 10 unit 12/22/19 18:00 12/23/19 11:47 Novolog SUBCUT 10 unit TIDWM JOAQUÍN Administration Insulin Glargine 20 unit 12/22/19 21:00 12/22/19 21:06 Lantus SUBCUT 20 unit BEDTIME JOAQUÍN Administration Levothyroxine Sodi um 150 mcg 12/22/19 09:00 12/23/19 08:02 Synthroid PO 150 mcg DAILY JOAQUÍN Administration Lorazepam 1 mg 12/21/19 20:57 Ativan IVP Q8H PRN ANXIETY Non-Formulary Medi cation 40 mg 12/22/19 09:00 12/23/19 08:17 Citalopram PO Not Given DAILY JOAQUÍN Nystatin 500,000 unit 12/21/19 21:00 12/23/19 08:02 Nystatin PO 500,000 unit QID JOAQUÍN Administration Ondansetron HCl 4 mg 12/21/19 20:57 12/23/19 11:48 Zofran IVP 4 mg Q6H PRN Administration vomiting, or N/V if npo Pantoprazole Sodiu m 40 mg 12/21/19 20:57 12/23/19 08:02 Protonix IVP 40 mg Q12H JOAQUÍN Administration Penicillins Allergy (Verified 12/21/19 14:35) Unknown Vitals/I&O/Wt Last Vital Signs Temp 98.3 F 12/23/19 11:09 Pulse 80 12/23/19 11:09 Resp 16 12/23/19 11:09 BP 136/76 12/23/19 11:09 Pulse Ox 97 12/23/19 11:09 12/22/19 12/23/19 12/23/19 22:59 06:59 14:59 Intake Total 440 / 1445 785.417 / 2230.417 877.5 / 877.5 Output Total 500 / 500 Balance 440 / 1445 285.417 / 1730.417 877.5 / 877.5 Weight last 48 hrs Weight 96.887 kg Weight 95.164 kg Weight 90.718 kg Physical Exam Const: COMMON NORMALS: no acute distress, patient oriented x3 and alert GENERAL APPEARANCE: cooperative, comfortable and frail appearing NUTRITIONAL APPEARANCE: obese morbidly obese ORIENTATION/CONSCIOUSNESS: Yes awake HENMT: COMMON NORMALS: normocephalic, atraumatic and hearing grossly normal bilaterally HEAD & SCALP: normocephalic and atraumatic MOUTH: moist mucous membranes abnormal Details: parched TEETH & GINGIVA: Yes dentures OTHER: -oral thrush resolved Eye: COMMON NORMALS: Equal, round and reactive pupils present, EOMs intact bilaterally and conjunctivae normal CONJUNCTIVA: Yes conjunctivae normal PUPIL: Yes Equal, round and reactive pupils present Neck/C-Spine: COMMON NORMALS: full ROM GENERAL: Yes normal visual inspection and Yes trachea midline Chest: CHEST: Yes Symmetrical chest wall rise Resp: COMMON NORMALS: normal respiratory effort, No retractions, No use of accessory muscles and clear to auscultation bilaterally EFFORT & INSPECTION: Yes able to speak in complete sentences, Yes symmetric chest movement and No tachypneic AUSCULTATION: clear to auscultation bilaterally OTHER: -on RA Cardio: COMMON NORMALS: regular rate, regular rhythm, S1 normal heart sound present, S2 normal heart sound present and No murmurs present (Cardio) RATE: regular rate and tachycardic RHYTHM: regular rhythm HEART SOUNDS: S1 normal heart sound present and S2 normal heart sound present GI: COMMON NORMALS: Normal to inspection, nondistended, normoactive bowel sounds present, Soft to palpation and non-tender INSPECTION: Yes central obesity PALPATION: Yes Soft to palpation RECTAL EXAM: External hemorrhoid(s) present : COMMON NORMALS: Yes normal appearance of the vagina (dried stool on pubic area) Extremity: COMMON NORMALS: normal to inspection, full ROM, no clubbing, cyanosis or edema and no pedal edema Neuro: COMMON NORMALS: patient oriented x3, moves all extremities, no focal motor deficits and no sensory deficits noted SENSORIUM/ORIENTATION: Yes alert Psych: COMMON NORMALS: mental status grossly normal, Normal thought process present, cooperative, normal affect and speech normal SPEECH: Yes normal speech THOUGHT PROCESS: Normal thought process present Skin: COMMON NORMALS: no rashes or lesions noted, no jaundice, no petechiae and no mottling GENERAL SKIN EXAM: no rashes or lesions noted Data : 06/22/20 03:51 12/23/19 03:51 A&P Assessment and plan (1) Oropharyngeal candidiasis: -apparent oral lesions on examination; ongoing odynophagia, dysphagia; symptoms resolved -opportunistic infection in immunocompromised patient -loaded with fluconazole 400 mg x 1, now on 200 mg once daily; due to improvement will switch to PO, plan to treat x 7 days -IVF hydration as clinically dehydrated; wean with improved oral intake -tolerating GI soft diet -nystatin swish and swallow, magic mouthwash -pain control as needed -appreciate ST evaluation; cleared for regular diet/liquids Status: Acute (2) Dehydration: -noted hyaline casts, hyponatremia, tachycardia. Resolved with IVF h ydration -encourage oral hydration Status: Acute (3) Rectal fissure: -on exam with some intermittent bleeding; no more so far -continue to monitor H/H; drop likely dilutional Status: Acute (4) Acute kidney injury: -secondary to dehydration from poor oral intake -IVF hydration -continue to monitor renal function, avoid nephrotoxins, renally dose meds. Improving renal function -baseline Cr is around 1-1.2 -EFREN on CKD stage 2 Status: Acute (5) Cervical cancer, FIGO stage EVARISTO: -poorly differentiated squamous cell cervical cancer -completed radiation therapy on 09/2019 -follows up with Dr. Ybarra and Dr. Downey -has received Cisplatin chemotherapy with noted toxicity including nausea, anorexia, worsening pancytopenia requiring transfusion -pending restaging PET/CT to determine next steps in management -on oral steroids Status: Chronic (6) Chronic anemia: -chronic normocytic anemia -baseline Hg is around 10 -continue to monitor H/H; drop likely dilutional Status: Chronic (7) Hypothyroidism: -on levothyroxine Status: Chronic Qualifiers: Hypothyroidism type: unspecified Qualified Code(s): E03.9 - Hypothyroidism, unspecified (8) Gastroesophageal reflux disease: -PPI IV Status: Chronic Qualifiers: Esophagitis presence: esophagitis presence not specified Qualified Code(s): K21.9 - Gastro-esophageal reflux disease without esophagitis (9) Anxiety: -anxiolytics PRN Status: Chronic (10) Hypertension: -normotensive, continue to monitor vital signs -continue to hold oral antihypertensives due to dehydration, renal impairment (on ACEi-HCTZ combination) Status: Chronic Qualifiers: Hypertension type: essential hypertension Qualified Code(s): I10 - Essential (primary) hypertension (11) Diabetes mellitus: -A1c-6.6 (09/2019) -Accuchecks, ISS, hypoglycemia precautions -hyperglycemia with steroids -consistent carb diet Status: Chronic Qualifiers: Diabetes mellitus complication status: without complication Diabetes mellitus shelter insulin use: without intermission coordinator use Diabetes mellitus type: type 2 Qualified Code(s): E11.9 - Type 2 diabetes mellitus without comp lications (12) Morbid obesity: -BMI-34 kg/m2 Status: Chronic Additional A&P Information -Hyperlipidemia; on statin -ambulatory with walker, appreciate PT evaluation -GI ppx with PPI -DVT ppx with heparin; cautiously due to underlying anemia -Dispo: home; add HH, walker ordered and delivered to bedside -Code status: DNR/DNI; discussed with patient at bedside Attestations Medical Necessity Statement*: Patient requires hospitalization for continued management of oropharyngeal candidiasis pending improved oral intake, switch to oral medications. Time Spent in Patient Care: 16 - 35 minutes (>than 50% of time spent in counselling and/or direct pt care on unit) . Coding Level of Care Code Acute Manager Stone for [facility] Diagnoses Oropharyngeal candidiasis B37.0 Dehydration E86.0 Rectal fissure K60.2 Acute kidney injury N17.9 Cervical cancer, FIGO stage [place] C53.9 Chronic anemia D64.9 Hypothyroidism E03.9 Hypothyroidism type: unspecified Gastroesophageal reflux disease K21.9 Esophagitis presence: esophagitis presence not specified Anxiety F41.9 Hypertension I10 Hypertension type: essential hypertension Diabetes mellitus E11.9 Diabetes mellitus complication status: without complication Diabetes mellitus intermission coordinator insulin use: without intermission coordinator use Diabetes mellitus type: type 2 Morbid obesity E66.01
[2019-12-23 14:59] VITALS: BP 125/76; PULSE 87; RESP 16; TEMP 36; O2SAT 94
[2019-12-23 17:27] LABS: Glucose Point of Care 116 mg/dL (70-110)
[2019-12-23 20:00] VITALS: BP 143/81; PULSE 89; RESP 17; TEMP 36.7; O2SAT 97
[2019-12-23 20:46] LABS: Glucose Point of Care 362 mg/dL (70-110)
[2019-12-23] MEDS: insulin glargine 100 units/1 mL 20 UNIT SUBCUT (21:12)
[2019-12-23] MEDS: atorvastatin 40 mg Tablet 80 MG PO (22:01)
[2019-12-24] VITALS: BP 114/65; PULSE 86; RESP 18; TEMP 36.6; O2SAT 97
[2019-12-24 04:00] VITALS: BP 144/74; PULSE 74; RESP 17; TEMP 36.7; O2SAT 98
[2019-12-24] MEDS: heparin 5,000 unit/mL INJ 1 mL 5000 UNIT SUBCUT (04:38)
[2019-12-24 06:16] LABS: Glucose Point of Care 219 mg/dL (70-110)
[2019-12-24 06:47] LABS: Hematocrit 26.6 % (37.0-47.0); Hemoglobin 8.5 g/dL (11.5-15.3)
[2019-12-24 07:01] LABS: Anion Gap 16.2 (5-19); Blood Urea Nitrogen 32 mg/dL (8-23); Calcium 9.3 mg/dL (8.5-10.5); Carbon Dioxide 20 mmol/L (22-29); Chloride 109 mmol/L (98-107); Glucose 197 mg/dL (65-115); Osmolality Calculated 295 mOsm/kg (285-295); Potassium 4.2 mmol/L (3.5-5.1); Sodium 141 mmol/L (136-145)
[2019-12-24 07:55] VITALS: BP 121/56; PULSE 72; RESP 18; TEMP 36.6; O2SAT 98
[2019-12-24] MEDS: citalopram 20 mg Tablet 40 MG PO (08:59)
[2019-12-24] MEDS: pantoprazole 40 mg SDV IVP (08:59)
[2019-12-24] MEDS: levothyroxine 150 mcg Tablet PO (08:59)
[2019-12-24] MEDS: dexamethasone 4 mg Tablet PO (08:59)
[2019-12-24] MEDS: fluconazole 100 mg Tablet 200 MG PO (08:59)
[2019-12-24] MEDS: nystatin 100,000 unit/mL UDC 5 mL 500000 UNIT PO (09:00)
--- NOTE | 2019-12-24 10:44 | PC.SOCIAL ---
Pg 2 IMM Explained to pt Pg 2 IMM. Pt verbally understands, no questions voiced. Provided pt a copy. Signed, dated, & timed a copy & placed in pt's chart.
[2019-12-24 11:34] VITALS: BP 149/79; PULSE 77; RESP 18; TEMP 36.8; O2SAT 94
[2019-12-24 11:46] LABS: Glucose Point of Care 335 mg/dL (70-110)
--- NOTE | 2019-12-24 12:08 | PM.DCS ---
Discharge Providers Date of Admission: 12/21/19 16:23 Date of Discharge: December 24, 2019 Attending Provider at Admission: La Franco MD Attending Provider at Discharge: La Franco MD Primary Care Provider: Chapin Keita MD Diagnoses at Discharge Discharge Diagnosis (1) Oropharyngeal candidiasis: Status: Acute Problem details: -apparent oral lesions on examination; ongoing odynophagia, dysphagia; symptoms resolved -opportunistic infection in immunocompromised patient -loaded with fluconazole 400 mg x 1, now on 200 mg once daily; due to improvement will switch to PO, plan to treat x 7 days -off IVF hydration; improved oral intake -tolerating GI soft diet -nystatin swish and swallow, magic mouthwash -pain control as needed -appreciate ST evaluation; cleared for regular diet/liquids (2) Dehydration: Status: Resolved Problem details: -noted hyaline casts, hyponatremia, tachycardia. Resolved with IVF hydration -encourage oral hydration (3) Rectal fissure: Status: Acute Problem details: -on exam with some intermittent bleeding; no more so far -continue to monitor H/H; drop likely dilutional (4) Acute kidney injury: Status: Resolved Problem details: -secondary to dehydration from poor oral intake -IVF hydration -continue to monitor renal function, avoid nephrotoxins, renally dose meds. Improving renal function -baseline Cr is around 1-1.2 -EFREN on CKD stage 2 (5) Cervical cancer, FIGO stage EVARISTO: Status: Chronic Problem details: -poorly differentiated squamous cell cervical cancer -completed radiation therapy on 09/2019 -follows up with Dr. Ybarra and Dr. Downey -has received Cisplatin chemotherapy with noted toxicity including nausea, anorexia, worsening pancytopenia requiring transfusion -pending restaging PET/CT to determine next steps in management -on oral steroids (6) Chronic anemia: Status: Chronic Problem details: -chronic normocytic anemia -baseline Hg is around 10 -continue to monitor H/H; drop likely dilutional (7) Hypothyroidism: Status: Chronic Problem details: -on levothyroxine Qualifiers: Hypothyroidism type: unspecified Qualified Code(s): E03.9 - Hypothyroidism, unspecified (8) Gastroesophageal reflux disease: Status: Chronic Problem details: -PPI IV Qualifiers: Esophagitis presence: esophagitis presence not specified Qualified Code(s): K21.9 - Gastro-esophageal reflux disease without esophagitis (9) Anxiety: Status: Chronic Problem details: -anxiolytics PRN (10) Hypertension: Status: Chronic Problem details: -normotensive, continue to monitor vital signs -continue to hold oral antihypertensives due to dehydration, renal impairment (on ACEi-HCTZ combination); can resume on d/c Qualifiers: Hypertension type: essential hypertension Qualified Code(s): I10 - Essential (primary) hypertension (11) Diabetes mellitus: Status: Chronic Problem details: -A1c-6.6 (09/2019) -Accuchecks, ISS, hypoglycemia precautions -hyperglycemia with steroids -consistent carb diet Qualifiers: Diabetes mellitus complication status: without complication Diabetes mellitus director long term care insulin use: without director long term care use Diabetes mellitus type: type 2 Qualified Code(s): E11.9 - Type 2 diabetes mellitus without complications (12) Morbid obesity: Status: Chronic Problem details: -BMI-34 kg/m2 Other Information Additional DC diagnoses/information: -Hyperlipidemia; on statin Reason for Visit Reason for Visit: Difficulty swallowing Hospital Course Hospital Course: Patient was admitted to the medical surgical floor and started on treatment for oropharyngeal candidiasis with nystatin swish and swallow solution and systemic fluconazole due to extent of noted oral lesions, dysphagia and odynophagia. She was hydrated with IV fluids to prevent dehydration due to limited oral intake and clinical evidence of dehydration. She responded quite well to the aforementioned treatment and has been able to tolerate oral intake. Oral thrush has resolved, she no longer has odynophagia or dysphasia. Was evaluated by speech therapy and cleared for a regular diet. She has been hemodynamically stable, afebrile, ambulatory with a walker and has been working with therapy with recommendation made for continued skilled therapy; home health services has been arranged for this purpose. Hemoglobin has steadily been trending downward but she has not required transfusion of any blood products during her hospital stay. She has had no leukocytosis and has consistently been afebrile. Renal function has improved with hydration and she is currently at her baseline. Hyperglycemia is likely due to steroids and she was covered with insulin while hospitalized but can resume metformin on discharge. He is to continue fluconazole and nystatin swish and swallow for several more days for complete treatment. She will need to follow-up with her primary care provider within 1 week and continue to follow-up with Dr. Downey. Discharge Summary: -Patient to follow-up with primary care physician within 1 week. She will need repeat labs to continue to monitor her hemoglobin done during her follow-up visit. -Patient to follow-up with Dr. Downey in 2 weeks Physical Exam Const: COMMON NORMALS: no acute distress, patient oriented x3 and alert GENERAL APPEARANCE: cooperative, comfortable and frail appearing NUTRITIONAL APPEARANCE: obese morbidly obese ORIENTATION/CONSCIOUSNESS: Yes awake HENMT: COMMON NORMALS: normocephalic, atraumatic and hearing grossly normal bilaterally HEAD & SCALP: normocephalic and atraumatic MOUTH: moist mucous membranes abnormal Details: parched TEETH & GINGIVA: Yes dentures OTHER: -oral thrush resolved Eye: COMMON NORMALS: Equal, round and reactive pupils present, EOMs intact bilaterally and conjunctivae normal CONJUNCTIVA: Yes conjunctivae normal PUPIL: Yes Equal, round and reactive pupils present Neck/C-Spine: COMMON NORMALS: full ROM GENERAL: Yes normal visual inspection and Yes trachea midline Chest: CHEST: Yes Symmetrical chest wall rise Resp: COMMON NORMALS: normal respiratory effort, No retractions, No use of accessory muscles and clear to auscultation bilaterally EFFORT & INSPECTION: Yes able to speak in complete sentences, Yes symmetric chest movement and No tachypneic AUSCULTATION: clear to auscultation bilaterally OTHER: -on RA Cardio: COMMON NORMALS: regular rate, regular rhythm, S1 normal heart sound present, S2 normal heart sound present and No murmurs present (Cardio) RATE: regular rate and tachycardic RHYTHM: regular rhythm HEART SOUNDS: S1 normal heart sound present and S2 normal heart sound present GI: COMMON NORMALS: Normal to inspection, nondistended, normoactive bowel sounds present, Soft to palpation and non-tender INSPECTION: Yes central obesity PALPATION: Yes Soft to palpation RECTAL EXAM: External hemorrhoid(s) present : COMMON NORMALS: Yes normal appearance of the vagina Extremity: COMMON NORMALS: normal to inspection, full ROM, no clubbing, cyanosis or edema and no pedal edema Neuro: COMMON NORMALS: patient oriented x3, moves all extremities, no focal motor deficits and no sensory deficits noted SENSORIUM/ORIENTATION: Yes alert Psych: COMMON NORMALS: mental status grossly normal, Normal thought process present, cooperative, normal affect and speech normal SPEECH: Yes normal speech THOUGHT PROCESS: Normal thought process present Skin: COMMON NORMALS: no rashes or lesions noted, no jaundice, no petechiae and no mottling GENERAL SKIN EXAM: no rashes or lesions noted Discharge Data Data Completed and Pending: Labs from last 24 hours 12/24/19 12/24/19 12/24/19 11:35 06:40 06:40 Hgb 8.5 L Hct 26.6 L Sodium 141 Potassium 4.2 Chloride 109 H Carbon Dioxide 20 L Anion Gap 16.2 BUN 32 H Creatinine 1.3 H Glucose 197 H POC Glucose 335 Calculated Osmolal ity 295 Calcium 9.3 12/24/19 12/23/19 12/23/19 06:11 20:11 17:13 Hgb Hct Sodium Potassium Chloride Carbon Dioxide Anion Gap BUN Creatinine Glucose POC Glucose 219 362 116 Calculated Osmolal ity Calcium Vitals: Last Vital Signs Temp 98.2 F 12/24/19 11:34 Pulse 77 12/24/19 11:34 Resp 18 12/24/19 11:34 BP 149/79 12/24/19 11:34 Pulse Ox 94 12/24/19 11:34 Discharge Plan Discharge Patient Disposition: Home Health Service Condition: Stable Prescriptions: New fluconazole 100 mg Tablet 200 mg PO DAILY 7 Days Qty: 14 RF: 0 nystatin 100,000 unit/mL Suspension 500,000 unit PO QID Qty: 60 RF: 0 Continued citalopram 40 mg tablet 40 mg PO DAILY RF: 0 diphenoxylate-atropine 2.5-0.025 mg tablet 1 tab PO Q4H PRN (Reason: Diarrhea) RF: 0 tramadol 50 mg tablet 50 mg PO Q6H PRN (Reason: Pain) RF: 0 pantoprazole 20 mg tablet,delayed release (DR/EC) 20 mg PO DAILY PRN (Reason: stomach acid/heartburn) RF: 0 alprazolam 0.5 mg tablet 0.5 mg PO BID PRN (Reason: Anxiety) RF: 0 hydrocodone-acetaminophen 7.5-325 mg tablet 1 tab PO Q6H PRN (Reason: Pain) RF: 0 dexamethasone 4 mg tablet 4 mg PO DAILY RF: 0 levothyroxine 150 mcg tablet 150 mcg PO DAILY RF: 0 lisinopril-hydrochlorothiazide 20-25 mg tablet 1 tab PO DAILY RF: 0 lorazepam 1 mg tablet 1 mg PO TID PRN (Reason: Nausea) RF: 0 metformin 500 mg tablet extended release 24 hr 1,000 mg PO DAILY RF: 0 Crestor 40 mg tablet 40 mg PO BEDTIME RF: 0 Discharge Orders: Discharge Order (Routine); Ordered 12/24/19 Ordered By: La Franco Other Ambulatory Orders: DME: Walker (Order) Location: None Selected Ordered By: La Franco Referrals: [facility] [place] [Outside] [facility] [Outside] Chapin Keita MD [Primary Care Provider] - 4-7 days (Post hospital discharge follow up. Treated for oropharyngeal candidiasis. ) Gato Downey MD [Hospitalist] - 2 weeks Discharge Diet: Diabetic Discharge Activity: Increase activity as tolerated and Use walker/crutches as instructed Discharge Attestations Time Spent in Discharge Care*: greater than 30 min Specific Discharge Activities: Specific discharge activities: educating patient, discussing with case specialist/social workers/dc planners, documenting/other paperwork and evaluating patient/reviewing data Status at Discharge: Cognitive status at discharge: cognitively intact, Behavioral status at discharge: cooperative, Functional status at discharge: uses cane/walker Overall status at discharge: patient is progressing back to baseline Quality Metrics Clinical Quality Measures During this hospital stay, did patient experience: None Coding Level of Care Code Acute [place] [facility] Diagnoses Oropharyngeal candidiasis B37.0 Dehydration E86.0 Rectal fissure K60.2 Acute kidney injury N17.9 Cervical cancer, FIGO stage EVARISTO C53.9 Chronic anemia D64.9 Hypothyroidism E03.9 Hypothyroidism type: unspecified Gastroesophageal reflux disease K21.9 Esophagitis presence: esophagitis presence not specified Anxiety F41.9 Hypertension I10 Hypertension type: essential hypertension Diabetes mellitus E11.9 Diabetes mellitus complication status: without complication Diabetes mellitus director long term care insulin use: without director long term care use Diabetes mellitus type: type 2 Morbid obesity E66.01
[2019-12-24 12:20] VITALS: BP 149/79; PULSE 77; RESP 18; TEMP 36.8; O2SAT 94
[2019-12-24 14:19] VITALS: BP 149/79; PULSE 77; RESP 18; TEMP 36.8; O2SAT 94
== END 2019-12-24 14:00 | disposition home health service (06) | DRG 369 ==
LOC: ER 16:24 → MEDSURG 16:36
PROVIDERS: Family Medicine; Internal Medicine; Admitting Provider Family Medicine; PCP Family Medicine; Visit Provider Family Medicine
DX: B37.81 Candidal esophagitis (principal); N17.9 Acute kidney failure, unspecified; E87.1 Hypo-osmolality and hyponatremia; E86.0 Dehydration; Z66 Do not resuscitate; F41.9 Anxiety disorder, unspecified; E03.9 Hypothyroidism, unspecified; K60.2 Anal fissure, unspecified; C53.9 Malignant neoplasm of cervix uteri, unspecified; K21.9 Gastro-esophageal reflux disease without esophagitis; N18.2 Chronic kidney disease, stage 2 (mild); E11.22 Type 2 diabetes mellitus with diabetic chronic kidney disease; I12.9 Hypertensive chronic kidney disease with stage 1 through stage 4 chronic kidney disease, or unspecified chronic kidney disease; D63.1 Anemia in chronic kidney disease; E66.01 Morbid (severe) obesity due to excess calories; Z68.34 Body mass index [BMI] 34.0-34.9, adult; Z79.84 Long term (current) use of oral hypoglycemic drugs
CPT/HCPCS: 12345; 36415; 36416; 80048; 80053; 81001; 82009; 82962; 84443; 84484; 85014; 85018; 85025; 85610; 85730; 87210; 92610; 93005; 96372; 96375; 97110; 97116; 97161; 97165; 97530; 97535; 99284; C9113; J1450; J1644; J1815; J2405; J7030; J8540

== ENCOUNTER 2020-01-07 15:01 | Outpatient (CLI) | payer MEDICARE, MEDICAID, SELFPAY ==
--- NOTE | 2020-01-08 06:54 | ONC FU_ITS ---
Dr. Downey Patient Follow-Up Note Patient: Sharon Sotelo Unit #: [id number]: [id number] Dicatated By: Gato Downey M.D.Date of Visit:Jan 07, 2020 Onc Med Follow-up/Prog Note Chief Complaint: Cervical cancer. 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 On 05/03/2019 she had presented to the emergency room with pain in the left lower quadrant/left flank area and difficulty voiding. Her CT abdomen/pelvis showed a soft tissue mass which was involving the left superior lateral aspect of the urinary bladder and was contiguous with the cervix. It measured at least 4 x 4.9 x 5.8 cm. There was associated ureterovesical junction obstruction and moderate left hydronephrosis. There was associated adenopathy including a left inferior pelvic lymph node measuring 1 x 1.5 cm, a left para-aortic lymph node measuring 1.4 cm, a common iliac lymph node measuring 1.1 cm, and bilateral external iliac lymph nodes measuring up to 2.1 x 4.2 cm on the right and 1 x 1.7 cm on the left. She was referred to Dr. Ybarra in [place]. On 06/04/2019 she underwent exam under anesthesia with cervical biopsy, cystoscopy with biopsy, and rigid proctoscopy to 15 cm. Her tumor appeared to be fixed to the left pelvic sidewall and there was noted to be right-sided parametrial disease. On the cystoscopy the tumor did appear to be involving the bladder. The cervical biopsy and the bladder biopsy both showed poorly differentiated squamous cell carcinoma. She was recommended to undergo chemoradiation. Her other medical illnesses include hypertension, type 2 diabetes, and hypothyroidism. She also has chronic anxiety. She is a non-smoker. INTERIM HISTORY: She began radiation concurrently with weekly cisplatin chemotherapy on 07/15/2019. She experienced no acute toxicity with her initial infusion of cisplatin. She was then able to continue her treatment weekly, completing her 6th infusion of cisplatin on 09/02/2019. She completed radiation on 09/03/2019 to a total dose of 5940 cGy. During her treatment she did require some growth factor support with Neupogen. She also required IV hydration on multiple occasions for nausea and poor oral intake. I had seen her for a follow-up visit on 09/18/2019. At that point she was really doing quite poorly, as she had gotten very weak and she was having significant anorexia/nausea, so that her oral intake was very poor. She was significantly pancytopenic with hemoglobin 6.4 g, white blood cell count 2000, and platelet count 66,000. She was transfused and she was given further IV hydration and supportive care measures. During subsequent follow-up there was further decline in the granulocyte count, nadiring at approximately 1000. She then began to show gradual improvement in her clinical status. However, during that time she had been to the radiation oncologist in [place] on 2 occasions, and on both she was declined for her brachytherapy. She eventually opted against treatment. On 12/21/2019 she was admitted to the hospital with complaints of chest pain in association with eating and rectal pain/bleeding. She had evidence of oral pharyngeal candidiasis and there was associated dehydration and acute renal injury. She also was significantly hyperglycemic. She had symptomatic improvement with IV hydration and IV fluconazole. Also was improvement in her renal function. She remained moderately anemic, but above transfusion threshold. The rectal bleeding was thought to be most likely due to anal fissure, and that improved with conservative management. Following discharge from the hospital, she did start Levemir 20 units daily at bedtime along with regular insulin per sliding scale. She is seen for a follow-up visit. She says her blood sugars have been better controlled since she has been on the insulin, though they still appear to be mostly in the 200s. She is still generally weak, and she is getting physical therapy at home twice a week. She is ambulating with a walker. She is able to do some light work at home. Her ECOG score is 1. She has good appetite. She has no fever or night sweats. Her mouth and throat are much better now. She has no shortness of breath, cough, or chest pain. She says her stools are still runny at times, but she is controlling that with Imodium. She still has a little rectal bleeding, but that also is getting better. She has no other GI or complaints. She has no significant joint or bone pain. She has no focal neurologic symptoms. Medications: ALPRAZolam 1 (0.25 mg) Tablet Oral daily, HYDROcodone-Acetaminophen 1 (7.5-325 mg) Tablet Oral q 6 hours PRN, Levothyroxine Sodium 1 (150 mcg) Tablet Oral daily, Lisinopril-hydroCHLOROthiazide 1 (20-25 mg) Tablet Oral daily, LORazepam 1 Tablet (of 1 mg) Oral t.i.d. PRN, metFORMIN HCl 2 Tablet (of 500 mg) Oral daily, Prochlorperazine Maleate 1 Tablet (of 10 mg) Oral q 4 hours PRN Allergies: Penicillins Review of Systems: Constitutional - She is still weak. She is getting physical therapy twice a week at home. She ambulates with a walker. She is able to do light work. Appetite is good and weight is stable. No fever, night sweats, or hot flashes. ECOG score is 1, ENMT - No sinus congestion/drainage. She had sore mouth and sore throat, but it is now getting better. No difficulty swallowing, Endocrine - She has diabetes and she is now on insulin, Hematologic/Lymphatic - She has easy bruising, Respiratory - No shortness of breath. No cough. No pleuritic pain or hemoptysis, Cardiovascular - No angina pain. No palpitations, Gastrointestinal - No nausea or vomiting. No heartburn or acid reflux. Her bowels are sometimes runny. She still sometimes has blood in the stool. The pain is getting better, Genitourinary (F) - No dysuria or hematuria. No urinary frequency. No urgency or incontinence, Musculoskeletal - No joint or bone pain, Integumentary - She has a skin rash on her arms and legs. It is not itchy, Neurologic - No headache or dizziness. No numbness or tingling. She has weakness, especially in her right leg, but she is walking better now, Psychiatric - She has anxiety. No depression. No insomnia. Vital Signs: Performed on Jan 07, 2020 15:15 Height - 66.00 in Weight - 196.8 lbs (HIGH) BSA - 1.99 sq.m BMI - 31.76 (HIGH) Temperature - 97.8 F (LOW) Pulse - 88 /min Respiration - 22 /min BP - 141/53 mm(hg) (HIGH) O2 Sat - 98 % Pain - 0 Physical Examination: Constitutional - She appears somewhat weak generally, Eyes - Sclerae nonicteric. Conjunctivae clear, ENMT - No lesions noted in the oral cavity, Hematologic/Lymphatic - No cervical, clavicular, or axillary adenopathy, Respiratory - Lungs sound clear, Cardiovascular - Heart rhythm is regular. There is a II/ systolic murmur. There is no gallop or rub noted, Abdomen - Soft. Liver and spleen are not enlarged. There is no abdominal mass or ascites noted and there is no inguinal adenopathy, Extremities - Slight edema on the right, Integumentary - There is an eruption consisting of small hemorrhagic lesions in the upper arms and legs, Neurologic - There is weakness in both legs. Lab/Imaging: Her laboratory studies from 12/23/2019 included CBC showing hemoglobin 8.8 g, white blood cell count 4300, and platelet count 142,000. Her basic metabolic profile showed BUN and creatinine down to 32 and 1.3 mg/dL respectively. Impression: 1. 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 2. On 06/04/2019 she underwent exam under anesthesia with cervical biopsy, cystoscopy with biopsy of the bladder, and rigid proctoscopy to 15 cm. Her other medical illnesses include: 3. Hypertension. 4. Type 2 diabetes. 5. Hypothyroidism. 6. Chronic anxiety. She began radiation concurrently with weekly cisplatin chemotherapy on 07/15/2019. She had some nausea and fatigue with the initial chemotherapy treatment, but she was able to tolerate it with acceptable toxicity, and she continued her treatment weekly, completing her 6th infusion of cisplatin on 09/02/2019. She completed radiation on 09/03/2019 to a total dose of 5940 cGy. During her treatment she required growth factor support with Neupogen, and she also required frequent IV hydration. She had unusually severe toxicity from the treatment, as she then continued to have weakness and nausea/anorexia. She developed worsening pancytopenia, significant enough to require transfusion. Her restaging PET/CT on 10/26/2019 showed resolution of the primary cervical mass and interval resolution of bilateral pelvic and left retroperitoneal lymph nodes. There was improvement but residual activity in a right obturator index node. Overall, the findings were felt to be consistent with a partial response to therapy. During follow-up she did show gradual recovery. However, due to her treatment related toxicity she was not able to undergo brachytherapy. On 12/21/2019 she was admitted to the hospital with oral pharyngeal candidiasis in association with hyperglycemia. She had associated dehydration and acute renal injury. She also is having symptoms of rectal fissure. She had symptomatic improvement on treatment with fluconazole and with IV hydration. Since discharge her blood sugar control has improved significantly on a combination of Levemir and regular insulin per sliding scale. She remains moderately anemic. Plan: As she continues to have limited activity tolerance and overall marginal performance status, she will continue on observation/expectant management for the cervical cancer. Her Levemir dosage will be increased to 25 units at bedtime. She will continue the regular insulin per sliding scale. She is to continue checking blood sugars regularly and recording those results for review. She will be scheduled for a follow-up visit in 1 month. Signed By: Gato Downey M.D. <<Signature on File>>
== END 2020-01-07 15:02 | disposition home or self-care (01) ==
LOC: ONCMED 15:05
PROVIDERS: PCP Family Medicine; Visit Provider Internal Medicine Medical Oncology
DX: C53.9 Malignant neoplasm of cervix uteri, unspecified (principal); F41.9 Anxiety disorder, unspecified; E78.5 Hyperlipidemia, unspecified; I10 Essential (primary) hypertension; E11.9 Type 2 diabetes mellitus without complications
CPT/HCPCS: 99214

== ENCOUNTER 2020-02-11 09:53 | Outpatient (CLI) | payer MEDICARE, MEDICAID, SELFPAY ==
[2020-02-11 10:55] LABS: Basophils % 0.1 %; Eosinophils % 0.3 %; Hematocrit 25.3 % (37.0-47.0); Lymphocytes # 0.7 10^3/uL (0.8-4.8); Lymphocytes % 9.2 %; Mean Corpuscular HGB Conc 31.6 g/dL (30.0-36.0); Mean Corpuscular Hemoglobin 31.7 pg (28.0-34.0); Mean Corpuscular Volume 100.4 fL (81-99); Monocytes # 0.7 10^3/uL (0.2-0.9); Monocytes % 10.2 %; Neutrophils # 5.79 10^3/uL (1.8-7.7); Neutrophils % 79.8 %; Nucleated Red Blood Cells % 0 %; Platelet Count 218 10^3/cmm (130-400); Red Blood Count 2.52 10^6/uL (4.1-5.3); Red Cell Distribution Width 16.4 % (12.1-15.1); White Blood Count 7.3 10^3/uL (4.0-10.0)
[2020-02-11 11:19] LABS: Alanine Aminotransferase 20 U/L (0-33); Albumin Level 4.1 g/dL (3.5-5.2); Alkaline Phosphatase 80 IU/L (35-105); Anion Gap 15.4 (5-19); Aspartate Amino Transferase 14 U/L (0-32); Blood Urea Nitrogen 30 mg/dL (8-23); Calcium 9.7 mg/dL (8.5-10.5); Carbon Dioxide 24 mmol/L (22-29); Chloride 102 mmol/L (98-107); Ferritin 828 ng/mL (15-150); Glucose 168 mg/dL (65-115); Iron 55 ug/dL (37-145); Osmolality Calculated 287 mOsm/kg (285-295); Percent Saturation 19.5 % (20-50); Potassium 3.4 mmol/L (3.5-5.1); Sodium 138 mmol/L (136-145); Total Bilirubin 1.3 mg/dL (0.15-1.2); Total Iron Binding Capacity 282 mcg/dl; Total Protein 7.1 g/dL (6.6-8.7); Unsaturated Iron Binding 227 ug/dL (112-347)
[2020-02-11 11:30] LABS: Estmated Average Glucose 126
[2020-02-11 11:32] LABS: Vitamin B12 445 pg/mL (232-1245)
== END 2020-02-11 09:54 | disposition home or self-care (01) ==
LOC: ONCMED 09:58
PROVIDERS: PCP Family Medicine; Visit Provider Internal Medicine Medical Oncology
DX: C53.9 Malignant neoplasm of cervix uteri, unspecified (principal); D50.9 Iron deficiency anemia, unspecified; D51.9 Vitamin B12 deficiency anemia, unspecified; E10.10 Type 1 diabetes mellitus with ketoacidosis without coma
CPT/HCPCS: 80053; 82607; 82728; 83036; 83540; 83550; 85025

== ENCOUNTER 2020-02-11 15:37 | Outpatient (CLI) | payer MEDICARE, MEDICAID, SELFPAY ==
--- NOTE | 2020-02-11 | CTR_ITS ---
PROCEDURE INFORMATION: Exam: CT Abdomen And Pelvis With Contrast Exam date and time: 02/11/2020 4:01 PM Age: 74 years old Clinical indication: Abdominal pain; Localized; Left lower quadrant (llq); Prior surgery; Patient HX: PT has HX of bladder cancer; Additional info: Llq pain TECHNIQUE: Imaging protocol: Computed tomography of the abdomen and pelvis with intravenous contrast. Radiation optimization: All CT scans at this facility use at least one of these dose optimization techniques: automated exposure control; mA and/or kV adjustment per patient size (includes targeted exams where dose is matched to clinical indication); or iterative reconstruction. Contrast material: VISI 320; Contrast volume: 95 ml; Contrast route: INTRAVENOUS (IV); COMPARISON: CT abdomen pelvis w con* [id number] 05/03/2019 10:48 AM RADIATION DOSE METRICS: Total DLP (mGy-cm): 1548.98 FINDINGS: Lungs: There is probable atelectasis/scar in the lungs. Liver: Normal. No mass. Gallbladder and bile ducts: Gallstones are identified although there are no CT findings to suggest cholecystitis. Pancreas: Normal. No ductal dilation. Spleen: Normal. No splenomegaly. Adrenals: Normal. No mass. Kidneys and ureters: Normal. No hydronephrosis. Stomach and bowel: There is wall thickening of the sigmoid colon with associated inflammatory change and fluid. There are colon diverticula. No bowel obstruction. Appendix: The appendix is visualized and appears normal. Intraperitoneal space: Unremarkable. No free air. No significant fluid collection. Vasculature: Unremarkable. No abdominal aortic aneurysm. Lymph nodes: Unremarkable. No enlarged lymph nodes. Bladder: Unremarkable as visualized. Reproductive: There has been interval resection of a cervical mass. Bones/joints: There is bilateral spondylolysis and spondylolisthesis at L5/S1.Degenerative change is identified in the spine. There is no evidence for acute fracture or malalignment. Soft tissues: Unremarkable. CT/CT abdomen pelvis w con* [id number] IMPRESSION: Findings are consistent with sigmoid colon diverticulitis.Clinical correlation is advised. Radiation Dose CTDIVOL = (mGy): DLP = 1548.98 (mGy-cm)
[2020-02-11] MEDS: iodixanol 320 mg/mL 100mL Btl IV (17:07)
== END 2020-02-11 15:38 | disposition home or self-care (01) ==
LOC: RAD 15:41
PROVIDERS: PCP Family Medicine; Visit Provider Family Medicine
DX: R10.32 Left lower quadrant pain (principal)
CPT/HCPCS: 74177

== ENCOUNTER 2020-02-13 06:11 | Outpatient (CLI) | payer MEDICARE, MEDICAID, SELFPAY ==
[2020-02-13] MEDS: sodium chlor 0.9% + KCl 20 mEq 20 MEQ/1,000 ML BAG 500 MEQ IV (10:55)
--- NOTE | 2020-02-16 12:19 | ONC FU_ITS ---
Dr. Downey Patient Follow-Up Note Patient: Sharon Sotelo Unit #: [id number]: 1945 Dicatated By: Gato Downey M.D.Date of Visit:Feb 13, 2020 Onc Med Follow-up/Prog Note Chief Complaint: Cervical cancer. 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 On 05/03/2019 she had presented to the emergency room with pain in the left lower quadrant/left flank area and difficulty voiding. Her CT abdomen/pelvis showed a soft tissue mass which was involving the left superior lateral aspect of the urinary bladder and was contiguous with the cervix. It measured at least 4 x 4.9 x 5.8 cm. There was associated ureterovesical junction obstruction and moderate left hydronephrosis. There was associated adenopathy including a left inferior pelvic lymph node measuring 1 x 1.5 cm, a left para-aortic lymph node measuring 1.4 cm, a common iliac lymph node measuring 1.1 cm, and bilateral external iliac lymph nodes measuring up to 2.1 x 4.2 cm on the right and 1 x 1.7 cm on the left. She was referred to Dr. Ybarra in [place]. On 06/04/2019 she underwent exam under anesthesia with cervical biopsy, cystoscopy with biopsy, and rigid proctoscopy to 15 cm. Her tumor appeared to be fixed to the left pelvic sidewall and there was noted to be right-sided parametrial disease. On the cystoscopy the tumor did appear to be involving the bladder. The cervical biopsy and the bladder biopsy both showed poorly differentiated squamous cell carcinoma. She was recommended to undergo chemoradiation. Her other medical illnesses include hypertension, type 2 diabetes, and hypothyroidism. She also has chronic anxiety. She is a non-smoker. INTERIM HISTORY: She began radiation concurrently with weekly cisplatin chemotherapy on 07/15/2019. She experienced no acute toxicity with her initial infusion of cisplatin. She was then able to continue her treatment weekly, completing her 6th infusion of cisplatin on 09/02/2019. She completed radiation on 09/03/2019 to a total dose of 5940 cGy. During her treatment she did require some growth factor support with Neupogen. She also required IV hydration on multiple occasions for nausea and poor oral intake. I had seen her for a follow-up visit on 09/18/2019. At that point she was really doing quite poorly, as she had gotten very weak and she was having significant anorexia/nausea, so that her oral intake was very poor. She was significantly pancytopenic with hemoglobin 6.4 g, white blood cell count 2000, and platelet count 66,000. She was transfused and she was given further IV hydration and supportive care measures. During subsequent follow-up there was further decline in the granulocyte count, nadiring at approximately 1000. She then began to show gradual improvement in her clinical status. However, during that time she had been to the radiation oncologist in [place] on 2 occasions, and on both she was declined for her brachytherapy. She eventually opted against treatment. On 12/21/2019 she was admitted to the hospital with complaints of chest pain in association with eating and rectal pain/bleeding. She had evidence of oral pharyngeal candidiasis and there was associated dehydration and acute renal injury. She also was significantly hyperglycemic. She had symptomatic improvement with IV hydration and IV fluconazole. Also was improvement in her renal function. She remained moderately anemic, but above transfusion threshold. The rectal bleeding was thought to be most likely due to anal fissure, and that improved with conservative management. Following discharge from the hospital, she did start Levemir 20 units daily at bedtime along with regular insulin per sliding scale. She has since then been tapering off dexamethasone. She had recently seen Dr. Keita with pain in the left lower quadrant of her abdomen. Her CT abdomen/pelvis on 02/11/2020 showed wall thickening of the sigmoid colon with associated inflammatory change and fluid. There were diverticula noted, and it was felt that the appearance was most consistent with sigmoid colon diverticulitis. There was no evidence of recurrent or metastatic neoplasm. She is seen for a follow-up visit. She has started antibiotic therapy for the diverticulitis with what I assume is ciprofloxacin and metronidazole. She is still having pain in her left lower quadrant area and she is on a clear liquid diet. She has very limited activity. ECOG score is 3. She is eating only a little bit, but thus far her weight is stable. She has no fever or night sweats. She has no shortness of breath, cough, or chest pain. She has not been having nausea. She does report having some heartburn. She has not had any bowel movement for the past 3 days. She says her urine looks dark, but bladder function has been okay. She has no significant joint or bone pain. She does not complain of headache or dizziness. She has no focal neurologic symptoms. Medications: ALPRAZolam 1 (0.25 mg) Tablet Oral daily, HYDROcodone-Acetaminophen 1 (7.5-325 mg) Tablet Oral q 6 hours PRN, Levothyroxine Sodium 1 (150 mcg) Tablet Oral daily, Lisinopril-hydroCHLOROthiazide 1 (20-25 mg) Tablet Oral daily, LORazepam 1 Tablet (of 1 mg) Oral t.i.d. PRN, metFORMIN HCl 2 Tablet (of 500 mg) Oral daily, Prochlorperazine Maleate 1 Tablet (of 10 mg) Oral q 4 hours PRN Allergies: Penicillins Review of Systems: Constitutional - She has not been feeling good. Her energy is low. She is mainly in her chair or in bed at home. Her appetite is poor but her weight is stable. No fever, night sweats, or hot flashes. ECOG score is 3, ENMT - No sinus congestion/drainage. No mouth sores. No sore throat or difficulty swallowing, Hematologic/Lymphatic - She bruises easily, Respiratory - No shortness of breath. No cough. No pleuritic pain or hemoptysis, Cardiovascular - No angina pain. No palpitations, Gastrointestinal - No nausea or vomiting. No heartburn or acid reflux. No diarrhea or constipation. No blood in the stool or black stools. She was recently diagnosed with diverticulitis and placed on Cipro and Flagyl. She still has pain in her LLQ, Genitourinary (F) - No dysuria or hematuria. She has urinary frequency. No urgency or incontinence. She reports her urine has a dark appearance. She was treated with Macrobid for UTI, Musculoskeletal - No joint or bone pain, Integumentary - She has a pale appearance, Neurologic - No headache or dizziness. No numbness or tingling. No other focal neurologic symptoms, Psychiatric - Her anxiety is adequately managed with alprazolam. No depression. No insomnia. Vital Signs: Performed on Feb 13, 2020 09:56 Height - 66.00 in Weight - 195.2 lbs (LOW) BSA - 1.98 sq.m BMI - 31.51 (HIGH) Temperature - 97.6 F (LOW) Pulse - 96 /min Respiration - 24 /min BP - 87/54 mm(hg) (LOW) O2 Sat - 99 % Pain - 7 Physical Examination: Constitutional - She appears somewhat weak generally, but not acutely ill, Eyes - Sclerae nonicteric. Conjunctivae clear, ENMT - No lesions noted in the oral cavity, Hematologic/Lymphatic - No cervical, clavicular, or axillary adenopathy, Respiratory - Lungs sound clear, Cardiovascular - Heart rhythm is regular. There is a II/ systolic murmur. There is no gallop or rub noted, Abdomen - Soft. There is tenderness in the left lower quadrant. Liver and spleen are not enlarged. There is no abdominal mass or ascites noted. Bowel sounds are normal. There is no inguinal adenopathy, Extremities - No edema. She has extensive purpura, Neurologic - No focal neurologic deficits noted. Lab/Imaging: Test performed on Feb 11, 2020 10:12 Ferritin 828 ng/mL Iron 55 mcg/dL Sodium 138 mmol/L Vitamin B12 445 pg/mL Iron Binding Capacity (TIBC) 282 mcg/dl Potassium 3.4 mmol/L % Iron Saturation 19.5 % Chloride 102 mmol/L CO2 24 mmol/L UIBC 227 mcg/dL Anion Gap 15.4 BUN 30 mg/dL Creatinine 1.4 mg/dL Cr Clearance (Est) 51.4500 mL/min Glucose 168 mg/dL Calcium 9.7 mg/dL Protein, Total 7.1 g/dL Albumin 4.1 g/dL Globulin 3.0 g/dL Bilirubin, Total 1.3 mg/dL ALT (SGPT) 20 U/L AST (SGOT) 14 U/L Alkaline Phosphatase 80 IU/L Hemoglobin A1C % 6.0 % WBC 7.3 10 3/uL RBC 2.52 10 6/uL HGB 8.0 g/dL HCT 25.3 % MCV 100.4 fL MCH 31.7 pg MCHC 31.6 g/dL RDW 16.4 % Platelet Count 218 10 3/cmm MPV 9.0 fL Neutrophils 5.79 10 3/uL Lymphocytes 0.7 10 3/uL Monocytes 0.7 10 3/uL Eosinophils 0.0 10 3/uL Basophils 0.0 10 3/uL Neutrophil % 79.8 % Lymphocyte % 9.2 % Monocyte % 10.2 % Eosinophil % 0.3 % Basophils % 0.1 % NRBC % 0 % Impression: 1. 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 2. On 06/04/2019 she underwent exam under anesthesia with cervical biopsy, cystoscopy with biopsy of the bladder, and rigid proctoscopy to 15 cm. Her other medical illnesses include: 3. Hypertension. 4. Type 2 diabetes. 5. Hypothyroidism. 6. Chronic anxiety. She began radiation concurrently with weekly cisplatin chemotherapy on 07/15/2019. She had some nausea and fatigue with the initial chemotherapy treatment, but she was able to tolerate it with acceptable toxicity, and she continued her treatment weekly, completing her 6th infusion of cisplatin on 09/02/2019. She completed radiation on 09/03/2019 to a total dose of 5940 cGy. During her treatment she required growth factor support with Neupogen, and she also required frequent IV hydration. She had unusually severe toxicity from the treatment, as she then continued to have weakness and nausea/anorexia. She developed worsening pancytopenia, significant enough to require transfusion. Her restaging PET/CT on 10/26/2019 showed resolution of the primary cervical mass and interval resolution of bilateral pelvic and left retroperitoneal lymph nodes. There was improvement but residual activity in a right obturator index node. Overall, the findings were felt to be consistent with a partial response to therapy. During follow-up she did show gradual recovery. However, due to her treatment related toxicity she was not able to undergo brachytherapy. On 12/21/2019 she was admitted to the hospital with oral pharyngeal candidiasis in association with hyperglycemia. She had associated dehydration and acute renal injury. She also is having symptoms of rectal fissure. She had symptomatic improvement on treatment with fluconazole and with IV hydration. Following discharge her blood sugar control improved significantly on a combination of Levemir and regular insulin per sliding scale, and she began to gradually taper off dexamethasone. She had recently presented with new pain in the left lower quadrant of the abdomen. CT findings were consistent with sigmoid colon diverticulitis, for which she is now on antibiotic therapy. She has very marginal performance status, and she remains significantly anemic. Plan: With her blood pressure low and with decline in her renal function, she will be given IV hydration today. She will stop taking lisinopril/HCTZ. She will continue her current antibiotic therapy. She continues observation/expectant management for the cervical cancer. She will return next week for repeat lab studies. She will continue tapering dexamethasone, now to 0.5 mg daily. Signed By: Gato Downey M.D. <<Signature on File>>
== END 2020-02-13 06:12 | disposition home or self-care (01) ==
LOC: ONCMED 06:14
PROVIDERS: PCP Family Medicine; Visit Provider Internal Medicine Medical Oncology
DX: Z08 Encounter for follow-up examination after completed treatment for malignant neoplasm (principal); Z85.41 Personal history of malignant neoplasm of cervix uteri; I10 Essential (primary) hypertension; E11.9 Type 2 diabetes mellitus without complications; E03.9 Hypothyroidism, unspecified; F41.9 Anxiety disorder, unspecified; E78.5 Hyperlipidemia, unspecified; Z92.3 Personal history of irradiation; Z79.2 Long term (current) use of antibiotics; Z79.52 Long term (current) use of systemic steroids
CPT/HCPCS: 96365; 96366; 99214

== ENCOUNTER 2020-02-14 10:06 | Inpatient (IN) | payer MEDICARE, MEDICAID, SELFPAY ==
[2020-02-14] VITALS (12 sets, daily range): BP systolic 109–161; BP diastolic 54–90; PULSE 16–108; RESP 14–110; TEMP 36.9–37.6; O2SAT 92–99; BMI 32.3
--- NOTE | 2020-02-14 10:11 | W.ED.ABDPA2 ---
HPI - Abdominal Pain General: Chief Complaint: Abdominal Pain Stated Complaint: ABDOMINAL PAIN Time Seen by Provider: 02/14/20 10:06 Source: patient and EMS Mode of arrival: EMS History of Present Illness: HPI narrative: 74-year-old female states she has been having abdominal pain over the last 3 days. She had a CT scan 2 days ago showed diverticulitis. Patient states she has been having worsening pain since then. States her pain is sharp in nature. Denies any vomiting or diarrhea. MD elicited complaint: abdominal pain Pertinent past history: diverticulitis Onset (ago): day(s) Pain Consistency: constant Location: LLQ Severity: moderate Quality: sharp Radiation: none Exacerbating factors: movement Relieving factors: rest Associated Symptoms: Denies chills, dysuria and fever(s) Review of Systems Const: Denies: fever(s), chills, body aches or change in appetite Eyes: Denies: blurry vision or eye discomfort ENMT: Denies: throat pain or dental pain Card: Denies: chest pain Resp: Denies: dyspnea GI: Reports: abdominal pain : Denies: dysuria Musc: Denies: neck pain or back pain Skin/Breast: Denies: rash Neuro: Denies: headache(s) Psych: Denies: depression Willie/Lymph: Denies: easy bruising All/Imm: Denies: urticaria PFSH ED PFSH: Medical History Anxiety -anxiolytics PRN Cervical cancer, FIGO stage 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 Ybarra and Dr. Downey -has received Cisplatin chemotherapy with noted toxicity including nausea, anorexia, worsening pancytopenia requiring transfusion -pending restaging PET/CT to determine next steps in management -on oral steroids Chronic anemia -chronic normocytic anemia -baseline Hg is around 10 -continue to monitor H/H; drop likely dilutional CKD (chronic kidney disease) stage 2, GFR 60-89 ml/min Diabetes mellitus -A1c-6.6 (09/2019) -Accuchecks, ISS, hypoglycemia precautions -hyperglycemia with steroids -consistent carb diet Gastroesophageal reflux disease -PPI IV Hypertension -normotensive, continue to monitor vital signs -continue to hold oral antihypertensives due to dehydration, renal impairment (on ACEi-HCTZ combination); can resume on d/c Hypothyroidism -on levothyroxine Morbid obesity -BMI-34 kg/m2 Oropharyngeal candidiasis -apparent oral lesions on examination; ongoing odynophagia, dysphagia; symptoms resolved -opportunistic infection in immunocompromised patient -loaded with fluconazole 400 mg x 1, now on 200 mg once daily; due to improvement will switch to PO, plan to treat x 7 days -off IVF hydration; improved oral intake -tolerating GI soft diet -nystatin swish and swallow, magic mouthwash -pain control as needed -appreciate ST evaluation; cleared for regular diet/liquids Rectal fissure -on exam with some intermittent bleeding; no more so far -continue to monitor H/H; drop likely dilutional Surgical History H/O pelvic surgery Resection of cervical cancer and associated metastasis Family History Mother CAD (coronary artery disease) Father Aneurysm brain Sister Cancer breast cancer Family/Other Cancer breast cancer in niece Social History Smoking and tobacco status: never smoked Alcohol intake: never Household members: children Housing: House Physical Exam Const: COMMON NORMALS: no acute distress, patient oriented x3 and healthy appearing HENMT: COMMON NORMALS: normocephalic and atraumatic HEAD & SCALP: normocephalic and atraumatic Eye: COMMON NORMALS: Equal, round and reactive pupils present and EOMs intact bilaterally PUPIL: Yes Equal, round and reactive pupils present Neck/C-Spine: COMMON NORMALS: full ROM and supple Chest: COMMONS NORMALS: normal inspection of the chest and normal palpation of entire chest wall Resp: COMMON NORMALS: normal respiratory effort, No retractions, No use of accessory muscles and clear to auscultation bilaterally AUSCULTATION: clear to auscultation bilaterally Cardio: COMMON NORMALS: regular rate, regular rhythm and No murmurs present (Cardio) RATE: regular rate RHYTHM: regular rhythm GI: COMMON NORMALS: Normal to inspection, nondistended, normoactive bowel sounds present, Soft to palpation and no masses PALPATION: Yes Soft to palpation OTHER: tenderness to llq Extremity: COMMON NORMALS: normal to inspection and full ROM Neuro: COMMON NORMALS: patient oriented x3, moves all extremities and no focal motor deficits Psych: COMMON NORMALS: mental status grossly normal, Normal thought process present and cooperative THOUGHT PROCESS: Normal thought process present Skin: COMMON NORMALS: no rashes or lesions noted and no wounds GENERAL SKIN EXAM: no rashes or lesions noted Course Vital Signs: Vital signs: Vital Signs Temperature 98.7 F 02/14/20 10:07 Pulse Rate 89 02/14/20 11:49 Respiratory Rate 14 02/14/20 11:49 Blood Pressure 143/55 02/14/20 11:49 Pulse Oximetry 99 02/14/20 11:49 MDM - Abdominal Pain MDM Narrative: Medical decision making narrative: Zander presents here with diverticulitis. Patient CT shows worsening diverticulitis. I spoke to hospitalist and will admit for IV antibiotics. Patient has no signs of sepsis. Lab Data: Labs: Lab Results 02/14/20 02/14/20 02/14/20 Range/Units 10:26 10:26 10:33 WBC 5.7 (4.0-10.0) 10^3/ uL RBC 2.46 L (4.1-5.3) 10^6/u L Hgb 7.8 L (11.5-15.3) g/dL Hct 26.4 L (37.0-47.0) % MCV 107.3 H (81-99) fL MCH 31.7 (28.0-34.0) pg MCHC 29.5 L (30.0-36.0) g/dL RDW 15.7 H (12.1-15.1) % Plt Count 201 (130-400) 10^3/c mm MPV 8.9 (7.4-10.4) fL Neut % (Auto) 76.6 % Lymph % (Auto) 12.7 % [place] % (Auto) 9.6 % Eos % (Auto) 0.3 % Baso % (Auto) 0.3 % Neut # (Auto) 4.39 (1.8-7.7) 10^3/u L Lymph # (Auto) 0.7 L (0.8-4.8) 10^3/u L [place] # (Auto) 0.6 (0.2-0.9) 10^3/u L Eos # (Auto) 0.0 (0.0-0.8) 10^3/u L Baso # (Auto) 0.0 (0.0-0.1) 10^3/u L Nucleated RBC % (a uto) 0 % Nucleated RBCs # 0.0 /100WBC Sodium 137 (136-145) mmol/L Potassium 3.3 L (3.5-5.1) mmol/L Chloride 101 (98-107) mmol/L Carbon Dioxide 23 (22-29) mmol/L Anion Gap 16.3 (5-19) BUN 21 (8-23) mg/dL Creatinine 1.4 H (0.5-0.9) mg/dL GFR Calculation Not Reportable Glucose 99 (65-115) mg/dL Calculated Osmolal ity 281 L (285-295) mOsm/k g Calcium 10.0 (8.5-10.5) mg/dL Total Bilirubin 1.0 (0.15-1.2) mg/dL AST 14 (0-32) U/L ALT 10 (0-33) U/L Alkaline Phosphata se 90 (35-105) IU/L Total Protein 6.5 L (6.6-8.7) g/dL Albumin 3.5 (3.5-5.2) g/dL Globulin 3.0 (1.3-4.6) g/dL Lipase 29 (13-60) U/L Urine Color Yellow (Yellow) Urine Appearance Hazy A (CLEAR) Urine pH 5 (5-7) Ur Specific Gravit y 1.020 (1.005-1.030) Urine Protein 1+ H (Negative) Urine Glucose (UA) Norm (Normal) Urine Ketones Negative (Negative) Urine Blood Neg (Negative) Urine Nitrate Negative (Negative) Urine Bilirubin Neg (NEGATIVE) Urine Urobilinogen 1 H (Negative) mg/dL Ur Leukocyte [place] Trace H (Negative) Urine RBC None (0-2) /hpf Urine WBC 15-25 H (0-5) /hpf Ur Squamous Epith Cells 15-25 H (0-5) Amorphous Sediment Not Reportable Urine Bacteria 1+ H (NONE) Hyaline Casts 0-4 H Fine Granular Cast s 0-4 H /lpf Urine Mucus 2+ Discharge Plan Discharge Patient Disposition: Admitted As Inpatient Clinical Impression: Diverticulitis Condition: Stable Referrals: Chapin Keita MD [Primary Care Provider] - Coding Level of Care Code ED [place] Program Coordinator for Chg Fwd Exam Comprehensive
--- NOTE | 2020-02-14 10:13 | CT_ITS ---
WS: [id number] CT ABDOMEN PELVIS TECHNIQUE: Contrast-enhanced CT of the abdomen and pelvis with coronal and sagittal reformatted image s. CLINICAL INFORMATION: abd pain COMPARISON: CT February 11, 2020 DLP: 1378.[address] scans at [facility] use at least one of these dose optimization techniques: automat ed exposure control; mA and/or kV adjustment per patient size (includes targeted exams where dose is matched to clinical indication); or iterative reconstruction. FINDINGS: Mild diffuse fatty infiltration of the liver. Dense cholelithiasis unchanged from previous. No gallbl adder wall thickening. Diffuse inflammatory stranding and edema about the sigmoid colon consistent wi th acute diverticulitis. Induration in the surrounding mesenteric fat. Perforated diverticulum in the left lower quadrant with a small amount of fluid along the left adnexa. Small air-fluid collection m easures 1.5 x 2.2 cm. This appears new/progressed from previous. Recommend interval follow-up to ensu re resolution after treatment. Fatty atrophy of the pancreas. Normal GE junction. Normal caliber abdominal aorta. Aortic calcificati on. Adrenal glands are normal. Normal renal parenchymal enhancement. No hydronephrosis in either kidn ey. Tiny fat-containing umbilical hernia. No abdominal or pelvic lymphadenopathy. No inguinal lymphad enopathy. Stable grade 1 anterolisthesis L5 on S1 bilateral pars defects. Notified Haroon Martin MD at 02/14/2020 11:[address]/CT abdomen pelvis w con* [id number] IMPRESSION: 1. Again seen are findings of acute diverticulitis with a new small perforated diverticulum in the left lower quadrant with a small air-fluid collection ke uring 2.1 x 1.6 cm. This is not amenable to percutaneous drainage at this time. Recommend interval follow-up after treatment to ensure resolution of the fluid collection. 2. Inflammatory stranding and edema about the sigmoid colon has progressed sli ghtly since February 11, 2020 3. No other significant changes from previous. 4. Stable dense cholelithiasis. No gallbladder wall thickening.
[2020-02-14 10:32] LABS: Basophils % 0.3 %; Eosinophils % 0.3 %; Hematocrit 26.4 % (37.0-47.0); Hemoglobin 7.8 g/dL (11.5-15.3); Lymphocytes # 0.7 10^3/uL (0.8-4.8); Lymphocytes % 12.7 %; Mean Corpuscular HGB Conc 29.5 g/dL (30.0-36.0); Mean Corpuscular Hemoglobin 31.7 pg (28.0-34.0); Mean Corpuscular Volume 107.3 fL (81-99); Mean Platelet Volume 8.9 fL (7.4-10.4); Monocytes # 0.6 10^3/uL (0.2-0.9); Monocytes % 9.6 %; Neutrophils # 4.39 10^3/uL (1.8-7.7); Neutrophils % 76.6 %; Nucleated Red Blood Cells % 0 %; Platelet Count 201 10^3/cmm (130-400); Red Blood Count 2.46 10^6/uL (4.1-5.3); Red Cell Distribution Width 15.7 % (12.1-15.1); White Blood Count 5.7 10^3/uL (4.0-10.0)
[2020-02-14 10:49] LABS: Alanine Aminotransferase 10 U/L (0-33); Albumin Level 3.5 g/dL (3.5-5.2); Alkaline Phosphatase 90 IU/L (35-105); Aspartate Amino Transferase 14 U/L (0-32); Blood Urea Nitrogen 21 mg/dL (8-23); Carbon Dioxide 23 mmol/L (22-29); Chloride 101 mmol/L (98-107); Glucose 99 mg/dL (65-115); Lipase 29 U/L (13-60); Osmolality Calculated 281 mOsm/kg (285-295); Sodium 137 mmol/L (136-145); Total Protein 6.5 g/dL (6.6-8.7)
[2020-02-14 10:51] LABS: Anion Gap 16.3 (5-19); Potassium 3.3 mmol/L (3.5-5.1)
[2020-02-14 11:00] LABS: Urine Appearance Hazy (CLEAR); Urine Color Yellow (Yellow); pH Urine 5 (5-7)
[2020-02-14 11:01] LABS: Add Urine Microscopic? YES; Bilirubin Urine Neg (NEGATIVE); Blood Urine Neg (Negative); Glucose Urine UA Norm (Normal); Ketones Urine Negative (Negative); Leukocyte Esterase Urine Trace (Negative); Nitrate Urine Negative (Negative); Protein Urine 1+ (Negative); Urobilinogen Urine 1 mg/dL (Negative)
[2020-02-14 11:02] LABS: Add Urine Culture? No; Bacteria Urine 1+; Mucus Urine 2+; Squamous Epithelial Cell Urine 15-25 (0-5); WBC Urine 15-25 /hpf (0-5)
[2020-02-14 11:03] LABS: Fine Granular Casts Urine 0-4 /lpf; Hyaline Casts Urine 0-4
--- NOTE | 2020-02-14 11:03 | PC.NURSE ---
RECEIVED REPORT FROM [facility].
--- NOTE | 2020-02-14 11:06 | PC.NURSE ---
WHILE AT BEDSIDE PT IS IN NAD.
[2020-02-14] MEDS: morphine 4 mg/mL SDV 1 mL IM (11:11)
[2020-02-14] MEDS: ondansetron 2 mg/ML SDV 2 mL 4 MG IVP (11:12)
--- NOTE | 2020-02-14 11:12 | PC.NURSE ---
Patient's IV in right posterior forearm will not flush or give blood return. IV discontinued at this time and restarted as documented.
[2020-02-14] MEDS: iodixanol 320 mg/mL 100mL Btl IV (11:31)
[2020-02-14] MEDS: ciprofloxacin 400 MG/200 ML PREMIX 200 MG IV (12:13)
[2020-02-14] MEDS: metroNIDAZOLE IV 500 MG/100 ML PREMIX 100 MG IV ×2 (12:24→21:15)
--- NOTE | 2020-02-14 12:45 | PC.NURSE ---
ER nurse tried to call report to Medical Surgical Floor, no answer.
--- NOTE | 2020-02-14 14:04 | P.HP_ITS ---
Providers/Chief Complaint Admitting Physician: Rk Mart MD Primary Care Provider: Chapin Keita MD Chief Complaint: ABDOMINAL PAIN History of Present Illness Sharon Sotelo is a 74 year old female with a past medical history of insulin- dependent type 2 diabetes mellitus, cervical cancer status post chemotherapy lesion therapy, recent history of hospitalization for significant oral candidiasis and dehydration, hyperlipidemia, GERD, recent history of left lower extremity DVT on Eliquis who presents to [facility] for complaints of left lower quadrant pain Patient complains of left lower quadrant pain for the past 3 days, abdominal distention for the last 3 days. Patient states that she is having left lower quadrant pain, nonradiating, associate with mild nausea, no vomiting, last meal was over 24 hours ago, states that it was cottage cheese, did have a bowel movement this morning, small, no bloody or black stools, no lightheadedness, no dizziness, no fevers, chills, is able to keep down liquids, denies a history of colon cancer, denies family history of colon cancer, denies a history of diverticulitis in the past, has not had any colonoscopy. Patient states that she presented to the emergency room 2 days ago, diagnosed with diverticulitis, sent home on Cipro and Flagyl, however her symptoms persisted, worsened, pain was much more severe so she sought emergency care. In the emergency room, patient was found to have acute diverticulitis, with small air-fluid collection measuring 2.1 x 1.6 centimeters, not amenable to percutaneous drainage, Dr. Roberson from surgery has been consulted by Dr. Martin. Currently patient states that he is doing fine, minimal abdominal pain, no nausea, no vomiting, is quite thirsty Review of Systems Const: Denies: fever(s), chills, fatigue or malaise Eyes: Denies: change in vision or blurry vision ENMT: Denies: nasal congestion Resp: Denies: dyspnea, productive cough, non-productive cough or wheezing GI: Reports: abdominal pain, nausea and bloating; Denies: vomiting, hematemesis, diarrhea, constipation, change in bowel habits, pain on defecation, change in stool character, hematochezia or melena : Denies: flank pain, dysuria or urinary frequency Musc: Denies: neck pain or back pain Skin/Breast: Denies: rash Neuro: Denies: headache(s), dizziness or vertigo Psych: Denies: anxiety or depression Endo: Denies: polyuria or polydipsia Medications/Allergies Home Medications Medication Instructions Recorded Confirmed Last Taken Type alprazolam 0.5 mg PO BID PRN 12/21/19 02/14/20 02/14/20 History citalopram 40 mg PO DAILY 12/21/19 02/14/20 02/14/20 History hydrocodone-acetaminophen 1 tab PO Q6H PRN 12/21/19 02/14/20 02/14/20 History levothyroxine 150 mcg PO DAILY 12/21/19 02/14/20 02/14/20 History lorazepam 1 mg PO TID PRN 12/21/19 02/14/20 12/21/19 History metformin 1,000 mg PO DAILY 12/21/19 02/14/20 12/20/19 History pantoprazole 20 mg PO DAILY PRN 12/21/19 02/14/20 02/14/20 History rosuvastatin [Crestor] 40 mg PO BEDTIME 12/21/19 02/14/20 02/13/20 History nystatin 500,000 unit PO QID #60 ml 12/24/19 02/14/20 Unknown Rx apixaban [Eliquis] 5 mg PO BID 02/14/20 02/14/20 02/14/20 History ciprofloxacin HCl [Cipro] 500 mg PO BID 02/14/20 02/14/20 02/14/20 History dexamethasone 1 mg PO DAILY 02/14/20 02/14/20 Unknown History insulin aspart U-100 [Novolog See Rx Instructions .ROUTE .COMPLEX 02/14/20 02/14/20 Unknown History Flexpen U-100 Insulin] insulin detemir U-100 [Levemir 20 unit SUBCUT BEDTIME 02/14/20 02/14/20 02/13/20 History FlexTouch U-100 Insuln] metronidazole [Flagyl] 500 mg PO TID 02/14/20 02/14/20 02/14/20 History nitrofurantoin monohyd/m-cryst 100 mg PO BID 02/14/20 02/14/20 02/14/20 History [Macrobid] Allergies Allergy/AdvReac Type Severity Reaction Status Date / Time Penicillins Allergy Unknown Verified 12/21/19 14:35 PFSH Acute PFSH: Medical History Anxiety -anxiolytics PRN Cervical cancer, FIGO stage 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 Ybarra and Dr. Downey -has received Cisplatin chemotherapy with noted toxicity including nausea, anorexia, worsening pancytopenia requiring transfusion -pending restaging PET/CT to determine next steps in management -on oral steroids Chronic anemia -chronic normocytic anemia -baseline Hg is around 10 -continue to monitor H/H; drop likely dilutional CKD (chronic kidney disease) stage 2, GFR 60-89 ml/min Diabetes mellitus -A1c-6.6 (09/2019) -Accuchecks, ISS, hypoglycemia precautions -hyperglycemia with steroids -consistent carb diet Gastroesophageal reflux disease -PPI IV Hypertension -normotensive, continue to monitor vital signs -continue to hold oral antihypertensives due to dehydration, renal impairment (on ACEi-HCTZ combination); can resume on d/c Hypothyroidism -on levothyroxine Morbid obesity -BMI-34 kg/m2 Oropharyngeal candidiasis -apparent oral lesions on examination; ongoing odynophagia, dysphagia; symptoms resolved -opportunistic infection in immunocompromised patient -loaded with fluconazole 400 mg x 1, now on 200 mg once daily; due to improvement will switch to PO, plan to treat x 7 days -off IVF hydration; improved oral intake -tolerating GI soft diet -nystatin swish and swallow, magic mouthwash -pain control as needed -appreciate ST evaluation; cleared for regular diet/liquids Rectal fissure -on exam with some intermittent bleeding; no more so far -continue to monitor H/H; drop likely dilutional Surgical History H/O pelvic surgery Resection of cervical cancer and associated metastasis Family History Mother CAD (coronary artery disease) Father Aneurysm brain Sister Cancer breast cancer Family/Other Cancer breast cancer in niece Social History Smoking and tobacco status: never smoked Alcohol intake: never Household members: children Housing: House Vitals/I&O/Wt Last Vital Signs Temp 98.5 F 02/14/20 13:25 Pulse 16 L 02/14/20 13:25 Resp 110 H 02/14/20 13:25 BP 135/68 02/14/20 13:25 Pulse Ox 92 02/14/20 13:25 02/13/20 02/14/20 02/14/20 22:59 06:59 14:59 Intake Total 236.667 / 236.667 Balance 236.667 / 236.667 Weight last 48 hrs Weight 90.718 kg Physical Exam Const: COMMON NORMALS: no acute distress and patient oriented x3 GENERAL APPEARANCE: cooperative and comfortable HENMT: COMMON NORMALS: normocephalic HEAD & SCALP: normocephalic Eye: COMMON NORMALS: Equal, round and reactive pupils present and EOMs intact bilaterally GENERAL EYE: appearance normal, both eyes and all related structures PUPIL: Yes Equal, round and reactive pupils present Neck/C-Spine: COMMON NORMALS: full ROM, no lymphadenopathy, no JVD and Thyroid normal THYROID: Thyroid normal Lymph: LYMPHATIC: no lymphadenopathy noted Resp: COMMON NORMALS: normal respiratory effort, No retractions, No use of accessory muscles and clear to auscultation bilaterally AUSCULTATION: clear to auscultation bilaterally Cardio: COMMON NORMALS: no JVD, regular rate, regular rhythm, S1 normal heart sound present, S2 normal heart sound present, No gallops present (Cardio), No clicks present (Cardio) and No murmurs present (Cardio) RATE: regular rate RHYTHM: regular rhythm HEART SOUNDS: S1 normal heart sound present and S2 normal heart sound present GI: COMMON NORMALS: Soft to palpation, non-tender and No hepatosplenomegaly present INSPECTION: Yes normal to inspection and Yes abdominal distension PALPATION: Yes Soft to palpation, Yes Tenderness to palpation present (GI) Details: LLQ, No Guarding due to palpation present (GI), No Rigid due to palpati on, Yes No hepatosplenomegaly present and No Rebound tenderness present PERCUSSION: normal to percussion Extremity: COMMON NORMALS: normal to inspection, full ROM and no pedal edema Neuro: COMMON NORMALS: patient oriented x3, CN's II-XII intact bilaterally, moves all extremities and no focal motor deficits Psych: COMMON NORMALS: mental status grossly normal, Normal thought process present and cooperative THOUGHT PROCESS: Normal thought process present Data : 02/14/20 10:26 02/14/20 10:26 A&P Assessment and plan (1) Acute diverticulitis: -With microperforation, small fluid collection 2.1 x 1.6 cm -Not amenable to drainage at this time Plan: -Surgery has been consulted -Keep n.p.o. -IV fluids D5 half-normal at 75 cc -Continue Cipro and Flagyl -Serial abdominal exams -Hold Eliquis until cleared by surgery for no surgical intervention at this time Status: Acute (2) Perforated diverticulum of small intestine: Status: Acute (3) Left leg DVT: Status: Acute (4) Hypokalemia: -We will give 40 mEq of IV potassium Status: Acute (5) CKD (chronic kidney disease) stage 2, GFR 60-89 ml/min: Status: Acute (6) Chronic anemia: -Has had a transfusion in the last 3 months -Has had significant pancytopenia secondary to chemotherapy -No overt signs of bleeding, no bloody or black stools -Hemoglobin today 7.8 -Monitor hemoglobin closely, transfuse if less than 7 -Hemoccult stool Ferritin, iron studies- Status: Inactive (7) Hypothyroidism: -Continue levothyroxine, check TSH Status: Inactive Qualifiers: Hypothyroidism type: unspecified Qualified Code(s): E03.9 - Hypothyroidism, unspecified (8) Gastroesophageal reflux disease: Status: Inactive Qualifiers: Esophagitis presence: esophagitis presence not specified Qualified Code(s): K21.9 - Gastro-esophageal reflux disease without esophagitis (9) Anxiety: Status: Inactive (10) Cervical cancer, FIGO stage EVARISTO: Status: Inactive (11) Hypertension: Status: Inactive Qualifiers: Hypertension type: essential hypertension Qualified Code(s): I10 - Essential (primary) hypertension (12) Diabetes mellitus: -Low-dose sliding scale Status: Inactive Qualifiers: Diabetes mellitus complication status: without complication Diabetes mellitus consulting technical director insulin use: without consulting technical director use Diabetes mellitus type: type 2 Qualified Code(s): E11.9 - Type 2 diabetes mellitus without complications Additional A&P Information Full code SCDs for DVT prophylaxis When seen by surgery, and deemed no surgical intervention, continue Eliquis for DVT prophylaxis Attestations Medical Necessity Statement*: Patient requires hospitalization, greater than 2 midnights, for acute diverticulitis with microperforation Coding Level of Care Code Acute Geospatial Analyst for g Fwd Diagnoses Acute diverticulitis K57.92 Perforated diverticulum of small intestine K57.00 Left leg DVT I82.402 Hypokalemia E87.6 CKD (chronic kidney disease) stage 2, GFR 60-89 ml/min N18.2 Chronic anemia D64.9 Hypothyroidism E03.9 Hypothyroidism type: unspecified Gastroesophageal reflux disease K21.9 Esophagitis presence: esophagitis presence not specified Anxiety F41.9 Cervical cancer, FIGO stage EVARISTO C53.9 Hypertension I10 Hypertension type: essential hypertension Diabetes mellitus E11.9 Diabetes mellitus complication status: without complication Diabetes mellitus consulting technical director insulin use: without consulting technical director use Diabetes mellitus type: type 2
--- NOTE | 2020-02-14 14:38 | P.CONIM_ITS ---
Providers/Reason For Consult Consulting Physican/Specialty*: General Surgery Kade Roberson MD Reason for Consult*: Perforated sigmoid diverticulitis. Attending Physician: Rk Mart MD Primary Care Provider: Chapin Keita MD History of Present Illness History of Present Illness Sharon Sotelo is a 74 year old female who was diagnosed with sigmoid diverticulitis several days ago on CAT scan after having a several day history of left lower quadrant pain. She was started on ciprofloxacin and metronidazole orally as an outpatient. She does tell me that she has been taking the medicine for 3 days but has continued to worsen in terms of her pain. She denies fevers but was having some chills in the emergency department. A repeat CAT scan showed a small perforation in the sigmoid colon. She was admitted for intravenous antibiotics and further management. The patient says that this has never happened to her before. She has never had a colonoscopy. She denies any family history of colon neoplasia. She did have a small loose bowel movement this morning but says her appetite has been very poor over the past several days and had not had a bowel movement for about 3 days. She has been trying to stick to a clear liquid diet. The patient denies any evidence of hematochezia. She did have some nausea associated with her pain but no vomiting. She says she is thirsty. Review of Systems General: Reports: 10 or more systems reviewed and unremarkable except in HPI and below Const: Reports: chills; Denies: fever(s) GI: Reports: abdominal pain, nausea and change in stool character; Denies: vomiting Willie/Lymph: Reports: other (Diagnosed with right lower extremity superficial venous thrombosis around 2 months ago. Has been on Eliquis since.) Meds/Allergies Home Medications and Allergies Home Medications Medication Instructions Recorded Confirmed Last Taken Type alprazolam 0.5 mg PO BID PRN 12/21/19 02/14/20 02/14/20 History citalopram 40 mg PO DAILY 12/21/19 02/14/20 02/14/20 History hydrocodone-acetaminophen 1 tab PO Q6H PRN 12/21/19 02/14/20 02/14/20 History levothyroxine 150 mcg PO DAILY 12/21/19 02/14/20 02/14/20 History lorazepam 1 mg PO TID PRN 0602/14/20 12/21/19 History metformin 1,000 mg PO DAILY 12/21/19 02/14/20 12/20/19 History pantoprazole 20 mg PO DAILY PRN 12/21/19 02/14/20 02/14/20 History rosuvastatin [Crestor] 40 mg PO BEDTIME 12/21/19 02/14/20 02/13/20 History nystatin 500,000 unit PO QID #60 ml 12/24/19 02/14/20 Unknown Rx apixaban [Eliquis] 5 mg PO BID 02/14/20 02/14/20 02/14/20 History ciprofloxacin HCl [Cipro] 500 mg PO BID 02/14/20 02/14/20 02/14/20 History dexamethasone 1 mg PO DAILY 02/14/20 02/14/20 Unknown History insulin aspart U-100 [Novolog See Rx Instructions .ROUTE .COMPLEX 02/14/20 02/14/20 Unknown History Flexpen U-100 Insulin] insulin detemir U-100 [Levemir 20 unit SUBCUT BEDTIME 02/14/20 02/14/20 02/13/20 History FlexTouch U-100 Insuln] metronidazole [Flagyl] 500 mg PO TID 02/14/20 02/14/20 02/14/20 History nitrofurantoin monohyd/m-cryst 100 mg PO BID 02/14/20 02/14/20 02/14/20 History [Macrobid] Allergies Allergy/AdvReac Type Severity Reaction Status Date / Time Penicillins Allergy rash as a Verified 02/14/20 14:53 child PFSH Acute PFSH: Medical History (Updated 02/14/20 @ 14:48 by Kade Roberson MD) Anxiety -anxiolytics PRN Cervical cancer, FIGO stage 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 Ybarra and Dr. Downey -has received Cisplatin chemotherapy with noted toxicity including nausea, anorexia, worsening pancytopenia requiring transfusion -pending restaging PET/CT to determine next steps in management -on oral steroids Cholelithiasis Chronic anemia -chronic normocytic anemia -baseline Hg is around 10 -continue to monitor H/H; drop likely dilutional CKD (chronic kidney disease) stage 2, GFR 60-89 ml/min Diabetes mellitus -A1c-6.6 (09/2019) -Accuchecks, ISS, hypoglycemia precautions -hyperglycemia with steroids -consistent carb diet Gastroesophageal reflux disease -PPI IV Hypertension -normotensive, continue to monitor vital signs -continue to hold oral antihypertensives due to dehydration, renal impairment (on ACEi-HCTZ combination); can resume on d/c Hypothyroidism -on levothyroxine Morbid obesity -BMI-34 kg/m2 Oropharyngeal candidiasis -apparent oral lesions on examination; ongoing odynophagia, dysphagia; symptoms resolved -opportunistic infection in immunocompromised patient -loaded with fluconazole 400 mg x 1, now on 200 mg once daily; due to improvement will switch to PO, plan to treat x 7 days -off IVF hydration; improved oral intake -tolerating GI soft diet -nystatin swish and swallow, magic mouthwash -pain control as needed -appreciate ST evaluation; cleared for regular diet/liquids Rectal fissure -on exam with some intermittent bleeding; no more so far -continue to monitor H/H; drop likely dilutional Surgical History (Updated 02/14/20 @ 14:42 by Kade Roberson MD) H/O pelvic surgery Cervical biopsy, cystoscopy with biopsy, rigid proctoscopy to 15 cm ([place]) Family History Mother CAD (coronary artery disease) Father Aneurysm brain Sister Cancer breast cancer Family/Other Cancer breast cancer in niece Social History Smoking and tobacco status: never smoked Alcohol intake: never Household members: children Housing: House Vitals/I&O/Wt Last Vital Signs Temp 98.8 F 02/14/20 13:59 Pulse 103 H 02/14/20 13:59 Resp 16 02/14/20 13:59 BP 129/67 02/14/20 13:59 Pulse Ox 98 02/14/20 13:59 02/13/20 02/14/20 02/14/20 22:59 06:59 14:59 Intake Total 236.667 / 236.667 Balance 236.667 / 236.667 Weight last 48 hrs Weight 200 lb Physical Exam Narrative: EXAM NARRATIVE: The patient was encountered in her hospital room. She does not appear to be in any distress. The pupils are equal. No carotid bruits are heard. The lungs are clear anteriorly. The heart is regular. The abdomen is moderately obese but is soft. She does have some moderate tenderness in the left lower quadrant. There is a small but nontender umbilical hernia present. The extremities reveal no edema but she has a chronic discoloration on the anterior aspect of the right ankle from when my blood clot was diagnosed. Neurologically she appears to be grossly intact. Data Imaging^: CT Abd/Pel: Radiologist's impression: CT abdomen/pelvis 02/11/2020 iMPRESSION: Findings are consistent with sigmoid colon diverticulitis.Clinical correlation is advised. CT abdomen/pelvis 02/14/2020 iMPRESSION: 1. Again seen are findings of acute diverticulitis with a new small perforated diverticulum in the left lower quadrant with a small air-fluid collection measuring 2.1 x 1.6 cm. This is not amenable to percutaneous drainage at this time. Recommend interval follow-up after treatment to ensure resolution of the fluid collection. 2. Inflammatory stranding and edema about the sigmoid colon has progressed slightly since February 11, 2020 3. No other significant changes from previous. 4. Stable dense cholelithiasis. No gallbladder wall thickening. A&P Assessment and plan (1) Perforated diverticulum of large intestine: The patient has failed outpatient therapy over the past 3 days. She is currently on intravenous ciprofloxacin and metronidazole. My concern is that the patient has been on this same regimen orally for several days and has failed outpatient therapy. She tells me that she had a rash as a child with penicillin and would be willing to try a penicillin or penicillin related derivative at this point to see if we can get a little bit more bacterial coverage. I am going to add Ceftazidime to the patient's current antibiotic regiment. I am also going to allow her a consistent carbohydrate clear liquid diet for now. Further recommendations will be pending the patient's clinical course in the days to come. Status: Acute Consult Attestations Medical Necessity Statement: See admitting service's notation. Coding Level of Care Code Acute Clinical Informatics Specialist for Asha Alanis Diagnoses Perforated diverticulum of large intestine K57.20
[2020-02-14 14:44] LABS: Estmated Average Glucose 123; Hemoglobin A1C 5.9 % (4.0-6.0)
[2020-02-14 14:52] LABS: Iron 51 ug/dL (37-145); NT Pro B Type Natriuretic Pept 165 pg/mL (0-125)
[2020-02-14 15:15] LABS: Ferritin 1395 ng/mL (15-150)
[2020-02-14 15:16] LABS: Thyroid Stimulating Hormone 0.15 uIU/mL (0.27-4.20)
--- NOTE | 2020-02-14 15:52 | ANES.PREANE2 ---
Pre-Anesthetic Assessment Pre-Anesthetic Assessment: Height/Weight: Height 1.68 m Weight 90.718 kg Temp Pulse Resp BP Pulse Ox 98.6 F 98 16 110/62 96 02/14/20 15:20 02/14/20 15:20 02/14/20 15:20 02/14/20 15:20 02/14/20 15:20 Preop Diagnosis: diverticulitis Proposed Procedure: colonoscopy Familial anesthetic complications: none Was Beta Amber taken within 24 hours: N/A Last intake: NPO > 8 hrs Social: Social History: No alcohol and No tobacco Exam: Pre-Anes Outpt Exam: alert, oriented x 3, clear to auscultation bilaterally and regular rate & rhythm Airway: Cervical ROM: WNL MP: 4 Dentition: False CV/HEM: CV/HEM: Anemia and HTN : : Chronic renal Insufficiency GI: GI: GERD Comments: gallstones Metabolic: Metabolic: DM, Morbid obesity and Thyroid Comments: thrush Anesthetic Plan: ASA status: 3 Anesthesia: MAC Risk of > 500 ml blood loss (7ml/kg in children): No PFSH Anesthesia PFSH: Medical History (Updated 02/14/20 @ 14:48 by Kade Roberson MD) Anxiety -anxiolytics PRN Cervical cancer, FIGO stage 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 Ybarra and Dr. Downey -has received Cisplatin chemotherapy with noted toxicity including nausea, anorexia, worsening pancytopenia requiring transfusion -pending restaging PET/CT to determine next steps in management -on oral steroids Cholelithiasis Chronic anemia -chronic normocytic anemia -baseline Hg is around 10 -continue to monitor H/H; drop likely dilutional CKD (chronic kidney disease) stage 2, GFR 60-89 ml/min Diabetes mellitus -A1c-6.6 (09/2019) -Accuchecks, ISS, hypoglycemia precautions -hyperglycemia with steroids -consistent carb diet Gastroesophageal reflux disease -PPI IV Hypertension -normotensive, continue to monitor vital signs -continue to hold oral antihypertensives due to dehydration, renal impairment (on ACEi-HCTZ combination); can resume on d/c Hypothyroidism -on levothyroxine Morbid obesity -BMI-34 kg/m2 Oropharyngeal candidiasis -apparent oral lesions on examination; ongoing odynophagia, dysphagia; symptoms resolved -opportunistic infection in immunocompromised patient -loaded with fluconazole 400 mg x 1, now on 200 mg once daily; due to improvement will switch to PO, plan to treat x 7 days -off IVF hydration; improved oral intake -tolerating GI soft diet -nystatin swish and swallow, magic mouthwash -pain control as needed -appreciate ST evaluation; cleared for regular diet/liquids Rectal fissure -on exam with some intermittent bleeding; no more so far -continue to monitor H/H; drop likely dilutional Surgical History (Updated 02/14/20 @ 14:42 by Kade Roberson MD) H/O pelvic surgery Cervical biopsy, cystoscopy with biopsy, rigid proctoscopy to 15 cm ([place]) Family History Mother CAD (coronary artery disease) Father Aneurysm brain Sister Cancer breast cancer Family/Other Cancer breast cancer in niece Social History Smoking and tobacco status: never smoked Alcohol intake: never Household members: children Housing: House Data Anesthesia CBC & Chem 7: 02/14/20 10:26 02/14/20 10:26 Other Labs: Laboratory Results - last 48 hr 02/14/20 02/14/20 02/14/20 10:26 10:26 10:26 WBC 5.7 RBC 2.46 L Hgb 7.8 L Hct 26.4 L MCV 107.3 H MCH 31.7 MCHC 29.5 L RDW 15.7 H Plt Count 201 MPV 8.9 Neut % (Auto) 76.6 Lymph % (Auto) 12.7 [place] % (Auto) 9.6 Eos % (Auto) 0.3 Baso % (Auto) 0.3 Reticulocyte % (Auto) Neut # (Auto) 4.39 Lymph # (Auto) 0.7 L [place] # (Auto) 0.6 Eos # (Auto) 0.0 Baso # (Auto) 0.0 Nucleated RBC % (auto) 0 Nucleated RBCs # 0.0 Sodium 137 Potassium 3.3 L Chloride 101 Carbon Dioxide 23 Anion Gap 16.3 BUN 21 Creatinine 1.4 H GFR Calculation Not Reportable Glucose 99 Estimat Average Glucose Hemoglobin A1c Calculated Osmolality 281 L Calcium 10.0 Iron Ferritin Total Bilirubin 1.0 AST 14 ALT 10 Alkaline Phosphatase 90 NT-Pro-B Natriuret Pep Total Protein 6.5 L Albumin 3.5 Globulin 3.0 Lipase 29 TSH 0.15 L Urine Color Urine Appearance Urine pH Ur Specific [place] Urine Protein Urine Glucose (UA) Urine Ketones Urine Blood Urine Nitrate Urine Bilirubin Urine Urobilinogen Ur Leukocyte Esterase Urine RBC Urine WBC Ur Squamous Epith Cells Amorphous Sediment Urine Bacteria Hyaline Casts Fine Granular Casts Urine Mucus 02/14/20 02/14/20 02/14/20 10:26 10:26 10:26 WBC RBC Hgb Hct MCV MCH MCHC RDW Plt Count MPV Neut % (Auto) Lymph % (Auto) [place] % (Auto) Eos % (Auto) Baso % (Auto) Reticulocyte % (Auto) 4.2300 Neut # (Auto) Lymph # (Auto) [place] # (Auto) Eos # (Auto) Baso # (Auto) Nucleated RBC % (auto) Nucleated RBCs # Sodium Potassium Chloride Carbon Dioxide Anion Gap BUN Creatinine GFR Calculation Glucose Estimat Average Glucose 123 Hemoglobin A1c 5.9 Calculated Osmolality Calcium Iron 51 Ferritin 1395 H Total Bilirubin AST ALT Alkaline Phosphatase NT-Pro-B Natriuret Pep 165 H Total Protein Albumin Globulin Lipase TSH Urine Color Urine Appearance Urine pH Ur Specific [place] Urine Protein Urine Glucose (UA) Urine Ketones Urine Blood Urine Nitrate Urine Bilirubin Urine Urobilinogen Ur Leukocyte Esterase Urine RBC Urine WBC Ur Squamous Epith Cells Amorphous Sediment Urine Bacteria Hyaline Casts Fine Granular Casts Urine Mucus 02/14/20 10:33 WBC RBC Hgb Hct MCV MCH MCHC RDW Plt Count MPV Neut % (Auto) Lymph % (Auto) [place] % (Auto) Eos % (Auto) Baso % (Auto) Reticulocyte % (Auto) Neut # (Auto) Lymph # (Auto) [place] # (Auto) Eos # (Auto) Baso # (Auto) Nucleated RBC % (auto) Nucleated RBCs # Sodium Potassium Chloride Carbon Dioxide Anion Gap BUN Creatinine GFR Calculation Glucose Estimat Average Glucose Hemoglobin A1c Calculated Osmolality Calcium Iron Ferritin Total Bilirubin AST ALT Alkaline Phosphatase NT-Pro-B Natriuret Pep Total Protein Albumin Globulin Lipase TSH Urine Color Yellow Urine Appearance Hazy A Urine pH 5 Ur Specific [place] 1.020 Urine Protein 1+ H Urine Glucose (UA) Norm Urine Ketones Negative Urine Blood Neg Urine Nitrate Negative Urine Bilirubin Neg Urine Urobilinogen 1 H Ur Leukocyte Esterase Trace H Urine RBC None Urine WBC 15-25 H Ur Squamous Epith Cells 15-25 H Amorphous Sediment Not Reportable Urine Bacteria 1+ H Hyaline Casts 0-4 H Fine Granular Casts 0-4 H Urine Mucus 2+ Cardiac Studies: No Data to Display
[2020-02-14 17:05] LABS: Glucose Point of Care 131 mg/dL (70-110)
[2020-02-14] MEDS: dextrose 5%-sod chloride 0.45% 1,000 ML 100 ML IV (17:22)
[2020-02-14] MEDS: heparin 5,000 unit/mL INJ 1 mL 5000 UNIT SUBCUT (17:23)
[2020-02-14] MEDS: cefTAZidime 1,000 MG in sodium chloride 0.9% (plus) 50 ML 150 MG IV ×2 (17:25→23:05)
[2020-02-14] MEDS: potassium chloride premix 40 MEQ/100 ML PREMIX 25 MEQ IV (17:30)
[2020-02-14] MEDS: atorvastatin 40 mg Tablet 80 MG PO (21:14)
[2020-02-14 21:15] LABS: Glucose Point of Care 157 mg/dL (70-110)
[2020-02-14] MEDS: nystatin 100,000 unit/mL UDC 5 mL 500000 UNIT PO (21:15)
[2020-02-15] VITALS (11 sets, daily range): BP systolic 96–164; BP diastolic 58–71; PULSE 78–94; RESP 16–18; TEMP 36.7–37.4; O2SAT 94–97
[2020-02-15] MEDS: ciprofloxacin 400 MG/200 ML PREMIX 200 MG IV ×3 (01:14→22:04)
[2020-02-15] MEDS: metroNIDAZOLE IV 500 MG/100 ML PREMIX 100 MG IV ×3 (03:37→19:40)
[2020-02-15] MEDS: heparin 5,000 unit/mL INJ 1 mL 5000 UNIT SUBCUT (03:37)
[2020-02-15 05:12] LABS: Alanine Aminotransferase 8 U/L (0-33); Albumin Level 3.2 g/dL (3.5-5.2); Alkaline Phosphatase 82 IU/L (35-105); Anion Gap 12.2 (5-19); Aspartate Amino Transferase 10 U/L (0-32); Blood Urea Nitrogen 13 mg/dL (8-23); Calcium 9.2 mg/dL (8.5-10.5); Carbon Dioxide 25 mmol/L (22-29); Chloride 104 mmol/L (98-107); Creatinine Clr Calc Pharmacy 43.0743; Globulin 2.8 g/dL (1.3-4.6); Glucose 156 mg/dL (65-115); Magnesium 1.7 mg/dL (1.7-2.3); Osmolality Calculated 285 mOsm/kg (285-295); Phosphorus 2.1 mg/dL (2.5-4.5); Potassium 3.2 mmol/L (3.5-5.1); Sodium 138 mmol/L (136-145); Total Bilirubin 0.9 mg/dL (0.15-1.2)
[2020-02-15 05:48] LABS: Basophils % 0.4 %; Eosinophils % 0.4 %; Hematocrit 23.7 % (37.0-47.0); Hemoglobin 7.6 g/dL (11.5-15.3); Lymphocytes # 0.6 10^3/uL (0.8-4.8); Lymphocytes % 12.1 %; Mean Corpuscular HGB Conc 32.1 g/dL (30.0-36.0); Mean Corpuscular Hemoglobin 32.8 pg (28.0-34.0); Mean Corpuscular Volume 102.2 fL (81-99); Monocytes # 0.5 10^3/uL (0.2-0.9); Monocytes % 11.7 %; Neutrophils # 3.39 10^3/uL (1.8-7.7); Nucleated Red Blood Cells % 0 %; Platelet Count 175 10^3/cmm (130-400); Red Blood Count 2.32 10^6/uL (4.1-5.3); Red Cell Distribution Width 15.9 % (12.1-15.1); White Blood Count 4.5 10^3/uL (4.0-10.0)
[2020-02-15] MEDS: dextrose 5%-sod chloride 0.45% 1,000 ML 100 ML IV (06:34)
[2020-02-15] MEDS: cefTAZidime 1,000 MG in sodium chloride 0.9% (plus) 50 ML 150 MG IV ×2 (06:35→18:40)
[2020-02-15 07:05] LABS: Glucose Point of Care 204 mg/dL (70-110)
[2020-02-15] MEDS: citalopram 20 mg Tablet 40 MG PO (08:55)
[2020-02-15] MEDS: levothyroxine 150 mcg Tablet PO (08:55)
[2020-02-15] MEDS: nystatin 100,000 unit/mL UDC 5 mL 500000 UNIT PO ×4 (08:56→22:05)
[2020-02-15] MEDS: HYDROcodone-acetaminophen 7.5-325 mg Tablet 1 TAB PO (09:01)
[2020-02-15] MEDS: ondansetron 2 mg/ML SDV 2 mL 4 MG IVP ×2 (09:02→17:16)
--- NOTE | 2020-02-15 09:25 | PM.PN ---
Subjective Subjective: Interval history: The patient says that her pain is better today. She says it does not hurt nearly as bad when she gets up and moves around. Vitals/I&O/Wt Last Vital Signs Temp 98.4 F 02/15/20 07:29 Pulse 82 02/15/20 07:29 Resp 18 02/15/20 07:29 BP 115/61 02/15/20 07:29 Pulse Ox 95 02/15/20 07:29 02/14/20 02/15/20 02/15/20 22:59 06:59 14:59 Intake Total 1238.333 / 2386.667 911.667 / 2386.667 60 / 60 Output Total 450 / 900 450 / 900 Balance 788.333 / 1486.667 461.667 / 1486.667 60 / 60 Weight last 48 hrs Weight 200 lb Physical Exam Narrative: EXAM NARRATIVE: The patient has remained afebrile. Bowel sounds are present. She still has some mild to moderate tenderness in the left lower quadrant with some voluntary guarding. Data : 02/15/20 04:14 02/15/20 04:14 A&P Assessment and plan (1) Perforated diverticulum of large intestine: The patient has improved subjectively. Continue broad-spectrum antibiotics. Status: Acute (2) Anemia: The patient has a history of anemia, but says the last time she had have a transfusion was perhaps 6 months ago around the time she was being treated for her cervical cancer. I will leave any transfusions to the discretion of the hospitalist team. Status: Acute Attestations Medical Necessity Statement*: See admitting service's notation. Coding Level of Care Code Acute Documentation Manager for Asha Alanis Diagnoses Perforated diverticulum of large intestine K57.20 Anemia D64.9
[2020-02-15 11:03] LABS: Glucose Point of Care 172 mg/dL (70-110)
--- NOTE | 2020-02-15 13:02 | P.PN_ITS ---
Subjective Subjective: Interval history: This morning patient was examined, she is lying in bed, states that she has some degree of left lower quadrant pain, but has improved, no bowel movement, is passing gas, no fevers, chills, nausea, vomiting, tolerating clear liquid diet well Vitals/I&O/Wt Last Vital Signs Temp 98.1 F 02/15/20 11:45 Pulse 86 02/15/20 11:45 Resp 18 02/15/20 11:45 BP 132/60 02/15/20 11:45 Pulse Ox 97 02/15/20 11:45 02/14/20 02/15/20 02/15/20 22:59 06:59 14:59 Intake Total 1238.333 / 1475.000 911.667 / 2386.667 160 / 160 Output Total 450 / 450 450 / 900 300 / 300 Balance 788.333 / 1025.000 461.667 / 1486.667 -140 / -140 Weight last 48 hrs Weight 90.718 kg Physical Exam Const: COMMON NORMALS: no acute distress and patient oriented x3 GENERAL APPEARANCE: cooperative and comfortable HENMT: COMMON NORMALS: normocephalic HEAD & SCALP: normocephalic Neck/C-Spine: COMMON NORMALS: no JVD Lymph: LYMPHATIC: no lymphadenopathy noted Resp: COMMON NORMALS: normal respiratory effort, No retractions, No use of accessory muscles and clear to auscultation bilaterally AUSCULTATION: clear to auscultation bilaterally Cardio: COMMON NORMALS: no JVD, regular rate, regular rhythm, S1 normal heart sound present, S2 normal heart sound present, No gallops present (Cardio), No clicks present (Cardio) and No murmurs present (Cardio) RATE: regular rate RHYTHM: regular rhythm HEART SOUNDS: S1 normal heart sound present and S2 normal heart sound present GI: COMMON NORMALS: Normal to inspection, nondistended, normoactive bowel sounds present, Soft to palpation and No hepatosplenomegaly present PALPATION: Yes Soft to palpation, Yes Tenderness to palpation present (GI) Details: LLQ, No Guarding due to palpation present (GI), No Rigid due to palpation and Yes No hepatosplenomegaly present Extremity: COMMON NORMALS: normal to inspection, full ROM and no pedal edema Neuro: COMMON NORMALS: patient oriented x3, CN's II-XII intact bilaterally, moves all extremities and no focal motor deficits Psych: COMMON NORMALS: mental status grossly normal, Normal thought process present and cooperative THOUGHT PROCESS: Normal thought process present Data : 02/15/20 04:14 02/15/20 04:14 A&P Assessment and plan (1) Acute diverticulitis: -With microperforation, small fluid collection 2.1 x 1.6 cm -Not amenable to drainage at this time Plan: -Surgery has been consulted -Currently on a liquid diet -Stop IV fluids -Continue Cipro and Flagyl, ceftazidime has been added -Serial abdominal exams -We will continue to hold Eliquis due to anemia Status: Acute (2) Perforated diverticulum of small intestine: Status: Acute (3) Left leg DVT: -Has been on Eliquis for the last month -Currently on hold due to concerns for anemia, hemoglobin 7.6 Status: Acute (4) Hypokalemia: -3.2 today, we will give 40 mEq of po potassium Status: Acute (5) CKD (chronic kidney disease) stage 2, GFR 60-89 ml/min: Creatinine 1.3 Status: Acute (6) Chronic anemia: -Has had a transfusion in the last 3 months -Has had significant pancytopenia secondary to chemotherapy -No overt signs of bleeding, no bloody or black stools -Hemoglobin today 7.6 -Possibly related to slow GI bleed related to her recent anticoagulation with Eliquis -After discussing the risks and benefits, agreed to hold Eliquis, hold blood th inners, -Transfuse 1 unit PRBC -Monitor hemoglobin -Hemoccult stool Status: Inactive (7) Hypothyroidism: -Continue levothyroxine, check TSH Status: Inactive Qualifiers: Hypothyroidism type: unspecified Qualified Code(s): E03.9 - Hypothyroidism, unspecified (8) Gastroesophageal reflux disease: Status: Inactive Qualifiers: Esophagitis presence: esophagitis presence not specified Qualified Code(s): K21.9 - Gastro-esophageal reflux disease without esophagitis (9) Anxiety: Status: Inactive (10) Cervical cancer, FIGO stage EVARISTO: Status: Inactive (11) Hypertension: Status: Inactive Qualifiers: Hypertension type: essential hypertension Qualified Code(s): I10 - Essential (primary) hypertension (12) Diabetes mellitus: -Low-dose sliding scale -Continue Lantus 20 units at bedtime Status: Inactive Qualifiers: Diabetes mellitus complication status: without complication Diabetes mellitus keno terminal operator insulin use: without keno terminal operator use Diabetes mellitus type: type 2 Qualified Code(s): E11.9 - Type 2 diabetes mellitus without complications Additional A&P Information Full code SCDs for DVT prophylaxis When seen by surgery, and deemed no surgical intervention, continue Eliquis for DVT prophylaxis Attestations Medical Necessity Statement*: Patient requires hospitalization for acute diverticulitis, anemia Coding Level of Care Code Acute Historiographer for g Fwd Diagnoses Acute diverticulitis K57.92 Perforated diverticulum of small intestine K57.00 Left leg DVT I82.402 Hypokalemia E87.6 CKD (chronic kidney disease) stage 2, GFR 60-89 ml/min N18.2 Chronic anemia D64.9 Hypothyroidism E03.9 Hypothyroidism type: unspecified Gastroesophageal reflux disease K21.9 Esophagitis presence: esophagitis presence not specified Anxiety F41.9 Cervical cancer, FIGO stage EVARISTO C53.9 Hypertension I10 Hypertension type: essential hypertension Diabetes mellitus E11.9 Diabetes mellitus complication status: without complication Diabetes mellitus prison insulin use: without prison use Diabetes mellitus type: type 2
[2020-02-15] MEDS: pantoprazole DR 40 mg Tablet PO ×2 (14:23→17:16)
[2020-02-15] MEDS: potassium chloride ER 10 mEq Tablet 40 MEQ PO (14:23)
[2020-02-15 17:03] LABS: Glucose Point of Care 188 mg/dL (70-110)
[2020-02-15] MEDS: sodium chloride 0.9% (100 ml) 100 ML 150 ML (18:39)
[2020-02-15 20:53] LABS: Glucose Point of Care 141 mg/dL (70-110)
[2020-02-15] MEDS: atorvastatin 40 mg Tablet 80 MG PO (22:05)
[2020-02-16] VITALS: BP 129/72; PULSE 82; RESP 19; TEMP 36.6; O2SAT 96
[2020-02-16 04:00] VITALS: BP 153/80; PULSE 85; RESP 18; TEMP 36.6; O2SAT 96
[2020-02-16] MEDS: metroNIDAZOLE IV 500 MG/100 ML PREMIX 100 MG IV ×3 (05:14→21:14)
[2020-02-16 05:43] LABS: Basophils % 0.4 %; Eosinophils % 0.6 %; Hematocrit 27.7 % (37.0-47.0); Hemoglobin 8.9 g/dL (11.5-15.3); Lymphocytes # 0.6 10^3/uL (0.8-4.8); Mean Corpuscular HGB Conc 32.1 g/dL (30.0-36.0); Mean Corpuscular Hemoglobin 31.3 pg (28.0-34.0); Mean Corpuscular Volume 97.5 fL (81-99); Mean Platelet Volume 8.8 fL (7.4-10.4); Monocytes # 0.6 10^3/uL (0.2-0.9); Monocytes % 11.8 %; Neutrophils # 3.46 10^3/uL (1.8-7.7); Neutrophils % 74.6 %; Nucleated Red Blood Cells % 0 %; Platelet Count 167 10^3/cmm (130-400); Red Blood Count 2.84 10^6/uL (4.1-5.3); Red Cell Distribution Width 15.6 % (12.1-15.1); White Blood Count 4.7 10^3/uL (4.0-10.0)
[2020-02-16 06:06] LABS: Alanine Aminotransferase 8 U/L (0-33); Albumin Level 3.2 g/dL (3.5-5.2); Alkaline Phosphatase 85 IU/L (35-105); Aspartate Amino Transferase 12 U/L (0-32); Blood Urea Nitrogen 8 mg/dL (8-23); Calcium 9.4 mg/dL (8.5-10.5); Carbon Dioxide 23 mmol/L (22-29); Chloride 103 mmol/L (98-107); Glucose 142 mg/dL (65-115); Magnesium 1.8 mg/dL (1.7-2.3); Osmolality Calculated 282 mOsm/kg (285-295); Phosphorus 2.1 mg/dL (2.5-4.5); Sodium 137 mmol/L (136-145); Total Bilirubin 1.4 mg/dL (0.15-1.2); Total Protein 6.2 g/dL (6.6-8.7)
[2020-02-16] MEDS: cefTAZidime 1,000 MG in sodium chloride 0.9% (plus) 50 ML 150 MG IV ×2 (06:14→17:09)
[2020-02-16 06:15] LABS: Anion Gap 14.4 (5-19); Potassium 3.4 mmol/L (3.5-5.1)
[2020-02-16 06:33] LABS: Glucose Point of Care 160 mg/dL (70-110)
[2020-02-16 07:55] VITALS: BP 124/72; PULSE 81; RESP 16; TEMP 36.8; O2SAT 96
[2020-02-16] MEDS: levothyroxine 150 mcg Tablet PO (08:44)
[2020-02-16] MEDS: nystatin 100,000 unit/mL UDC 5 mL 500000 UNIT PO ×4 (08:44→21:19)
[2020-02-16] MEDS: pantoprazole DR 40 mg Tablet PO ×2 (08:44→17:09)
[2020-02-16] MEDS: citalopram 20 mg Tablet 40 MG PO (08:44)
--- NOTE | 2020-02-16 09:21 | PM.PN ---
Subjective Subjective: Interval history: The patient says he still has some left lower quadrant discomfort, but it continues to get better daily. She equates this to a 3 out of 10 on the pain scale today. She continues to have loose stool. Vitals/I&O/Wt Last Vital Signs Temp 98.3 F 02/16/20 07:55 Pulse 81 02/16/20 07:55 Resp 16 02/16/20 07:55 BP 124/72 02/16/20 07:55 Pulse Ox 96 02/16/20 07:55 02/15/20 02/16/20 02/16/20 22:59 06:59 14:59 Intake Total 620 / 1620 540 / 1620 120 / 120 Output Total 300 / 600 Balance 320 / 1020 540 / 1020 120 / 120 Weight last 48 hrs Weight 200 lb Physical Exam Narrative: EXAM NARRATIVE: The patient still has some tenderness in the left lower quadrant on exam. Data : 02/16/20 05:30 02/16/20 05:30 Micro: Microbiology 02/15/20 14:20 Occult Blood (FIT) - Final Stool - Stool Aspirate A&P Assessment and plan (1) Perforated diverticulum of large intestine: The patient continues to improve subjectively, but slowly. Continue broad-spectrum antibiotics. The patient's white blood cell count has always been normal, so I do not think we will be able to use this is much of a guide to overall improvement. Since her tenderness continues, we could consider getting a repeat CAT scan in the next 24 to 48 hours. Status: Acute (2) Anemia: The patient has a history of anemia, but says the last time she had have a transfusion was perhaps 6 months ago around the time she was being treated for her cervical cancer. I will leave any transfusions to the discretion of the hospitalist team. Status: Acute Attestations Medical Necessity Statement*: See admitting service's notation. Coding Level of Care Code Acute Asic Engineer for Asha Alanis Diagnoses Perforated diverticulum of large intestine K57.20 Anemia D64.9
[2020-02-16] MEDS: ALPRAZolam 0.5 mg Tablet PO (09:50)
[2020-02-16] MEDS: ondansetron 2 mg/ML SDV 2 mL 4 MG IVP (10:41)
[2020-02-16] MEDS: D5-NS 0.45% + KCL 20 mEq 20 MEQ/1,000 ML BAG 75 MEQ IV (10:42)
[2020-02-16 11:36] LABS: Glucose Point of Care 174 mg/dL (70-110)
[2020-02-16 11:44] VITALS: BP 130/72; PULSE 79; RESP 16; TEMP 36.6; O2SAT 95
[2020-02-16] MEDS: ciprofloxacin 400 MG/200 ML PREMIX 200 MG IV (11:48)
--- NOTE | 2020-02-16 12:40 | PM.PN ---
Subjective Subjective: Interval history: Overnight patient had mild left lower quadrant pain, mild nausea, has not had a bowel movement, is passing gas, no lightheadedness, dizziness, Vitals/I&O/Wt Last Vital Signs Temp 97.9 F 02/16/20 11:44 Pulse 79 02/16/20 11:44 Resp 16 02/16/20 11:44 BP 130/72 02/16/20 11:44 Pulse Ox 95 02/16/20 11:44 02/15/20 02/16/20 02/16/20 22:59 06:59 14:59 Intake Total 620 / 1080 540 / 1620 120 / 120 Output Total 300 / 600 Balance 320 / 480 540 / 1020 120 / 120 Physical Exam Const: COMMON NORMALS: no acute distress and patient oriented x3 GENERAL APPEARANCE: cooperative and comfortable HENMT: COMMON NORMALS: normocephalic HEAD & SCALP: normocephalic Eye: COMMON NORMALS: Equal, round and reactive pupils present, EOMs intact bilaterally and no papilledema GENERAL EYE: appearance normal, both eyes and all related structures PUPIL: Yes Equal, round and reactive pupils present DIRECT OPHTHALMOSCOPY: Yes no papilledema Neck/C-Spine: COMMON NORMALS: full ROM, no lymphadenopathy, no JVD and Thyroid normal THYROID: Thyroid normal Lymph: LYMPHATIC: no lymphadenopathy noted Resp: COMMON NORMALS: normal respiratory effort, No retractions, No use of accessory muscles and clear to auscultation bilaterally AUSCULTATION: clear to auscultation bilaterally Cardio: COMMON NORMALS: no JVD, regular rate, regular rhythm, S1 normal heart sound present, S2 normal heart sound present, No gallops present (Cardio), No clicks present (Cardio) and No murmurs present (Cardio) RATE: regular rate RHYTHM: regular rhythm HEART SOUNDS: S1 normal heart sound present and S2 normal heart sound present GI: COMMON NORMALS: Normal to inspection, nondistended, normoactive bowel sounds present, Soft to palpation, non-tender and No hepatosplenomegaly present PALPATION: Yes Soft to palpation, Yes Tenderness to palpation present (GI) Details: LLQ and Yes No hepatosplenomegaly present Extremity: COMMON NORMALS: normal to inspection, full ROM and no pedal edema Neuro: COMMON NORMALS: patient oriented x3, CN's II-XII intact bilaterally, moves all extremities and no focal motor deficits Psych: COMMON NORMALS: mental status grossly normal, Normal thought process present and cooperative THOUGHT PROCESS: Normal thought process present Data : 02/16/20 05:30 02/16/20 05:30 Micro: Microbiology 02/15/20 14:20 Occult Blood (FIT) - Final Stool - Stool Aspirate A&P Assessment and plan (1) Acute diverticulitis: -With microperforation, small fluid collection 2.1 x 1.6 cm -Not amenable to drainage at this time Plan: -Surgery has been consulted -Currently on a liquid diet -As patient has had a slow clinical progress, will consider repeating a CT scan in the next 24 to 48 hours -Continue Cipro and Flagyl, ceftazidime has been added -Serial abdominal exams -We will continue to hold Eliquis due to anemia Status: Acute (2) Perforated diverticulum of small intestine: Status: Acute (3) Left leg DVT: -Has been on Eliquis for the last month -Currently on hold due to concerns for anemia, hemoglobin 8.9 Status: Acute (4) Hypokalemia: -3.4 today, we will give 40 mEq of po potassium Status: Acute (5) CKD (chronic kidney disease) stage 2, GFR 60-89 ml/min: Creatinine 1.3 Status: Acute (6) Chronic anemia: -Has had a transfusion in the last 3 months -Has had significant pancytopenia secondary to chemotherapy -No overt signs of bleeding, no bloody or black stools -Hemoglobin today 7.6 -Possibly related to slow GI bleed related to her recent anticoagulation with Eliquis -After discussing the risks and benefits, agreed to hold Eliquis, hold blood thinners, -Transfuse 1 unit PRBC -Monitor hemoglobin -Hemoccult stool Status: Inactive (7) Hypothyroidism: -Continue levothyroxine, check TSH Status: Inactive Qualifiers: Hypothyroidism type: unspecified Qualified Code(s): E03.9 - Hypothyroidism, unspecified (8) Gastroesophageal reflux disease: Status: Inactive Qualifiers: Esophagitis presence: esophagitis presence not specified Qualified Code(s): K21.9 - Gastro-esophageal reflux disease without esophagitis (9) Anxiety: Status: Inactive (10) Cervical cancer, FIGO stage EVARISTO: Status: Inactive (11) Hypertension: Status: Inactive Qualifiers: Hypertension type: essential hypertension Qualified Code(s): I10 - Essential (primary) hypertension (12) Diabetes mellitus: -Low-dose sliding scale -Continue Lantus 20 units at bedtime Status: Inactive Qualifiers: Diabetes mellitus complication status: without complication Diabetes mellitus assisted insulin use: without assisted use Diabetes mellitus type: type 2 Qualified Code(s): E11.9 - Type 2 diabetes mellitus without complications Additional A&P Information Full code SCDs for DVT prophylaxis When seen by surgery, and deemed no surgical intervention, continue Eliquis for DVT prophylaxis Attestations Medical Necessity Statement*: Patient requires continued hospitalization due to acute diverticulitis, anemia Coding Level of Care Code Acute Display Fabrication Supervisor for g Fwd Diagnoses Acute diverticulitis K57.92 Perforated diverticulum of small intestine K57.00 Left leg DVT I82.402 Hypokalemia E87.6 CKD (chronic kidney disease) stage 2, GFR 60-89 ml/min N18.2 Chronic anemia D64.9 Hypothyroidism E03.9 Hypothyroidism type: unspecified Gastroesophageal reflux disease K21.9 Esophagitis presence: esophagitis presence not specified Anxiety F41.9 Cervical cancer, FIGO stage EVARISTO C53.9 Hypertension I10 Hypertension type: essential hypertension Diabetes mellitus E11.9 Diabetes mellitus complication status: without complication Diabetes mellitus long term care pharmacist insulin use: without long term care pharmacist use Diabetes mellitus type: type 2
[2020-02-16] MEDS: potassium chloride ER 10 mEq Tablet 40 MEQ PO (13:07)
--- NOTE | 2020-02-16 15:20 | USR_ITS ---
PROCEDURE INFORMATION: Exam: US Duplex Right Lower Extremity Veins, Limited Exam date and time: 02/16/2020 4:18 PM Age: 74 years old Clinical indication: Condition or disease; Other: Dvt; Additional info: HX of dvt TECHNIQUE: Imaging protocol: Real-time Duplex ultrasound of the Right Lower Extremity with 2-D kamara scale, color Doppler flow and spectral waveform analysis with image documentation. Limited exam was focused on the right lower extremity veins. COMPARISON: No relevant prior studies available. FINDINGS: Right deep veins: Unremarkable. The common femoral, femoral, proximal profunda femoral and popliteal veins are patent without thrombus. Normal Doppler waveforms. Normal compressibility and/or augmentation response. Right superficial veins: Unremarkable. Saphenofemoral junction is patent without thrombus. Soft tissues: Unremarkable. Other findings: Calf veins are not well seen. There is nonocclusive thrombus in the popliteal vein which is eccentric plea positioned along the anterior wall of the vein and is heterogeneous in echotexture. This is most consistent with a chronic thrombus. There is nonocclusive thrombus and partial compression of the peroneal [place]. US/[place] [id number] IMPRESSION: 1. 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 2. There is nonocclusive thrombus of the peroneal trunk as well. Calf veins are not optimally visualized.
[2020-02-16 16:00] VITALS: BP 143/81; PULSE 84; RESP 16; TEMP 36.8; O2SAT 97
[2020-02-16 17:19] LABS: Glucose Point of Care 137 mg/dL (70-110)
[2020-02-16 19:30] VITALS: BP 144/73; PULSE 80; RESP 12; TEMP 36.9; O2SAT 96
[2020-02-16] MEDS: atorvastatin 40 mg Tablet 80 MG PO (21:14)
[2020-02-17] VITALS (8 sets, daily range): BP systolic 131–153; BP diastolic 69–83; PULSE 77–120; RESP 15–20; TEMP 36.4–37.1; O2SAT 94–97
[2020-02-17] MEDS: ciprofloxacin 400 MG/200 ML PREMIX 200 MG IV ×2 (00:07→12:27)
[2020-02-17 00:08] LABS: Glucose Point of Care 146 mg/dL (70-110)
[2020-02-17 04:26] LABS: Basophils % 0.2 %; Eosinophils % 0.7 %; Hematocrit 26.1 % (37.0-47.0); Hemoglobin 8.6 g/dL (11.5-15.3); Lymphocytes # 0.5 10^3/uL (0.8-4.8); Lymphocytes % 10.6 %; Mean Corpuscular Hemoglobin 32.3 pg (28.0-34.0); Mean Corpuscular Volume 98.1 fL (81-99); Mean Platelet Volume 8.7 fL (7.4-10.4); Monocytes # 0.4 10^3/uL (0.2-0.9); Monocytes % 9.4 %; Neutrophils # 3.41 10^3/uL (1.8-7.7); Neutrophils % 78.6 %; Nucleated Red Blood Cells % 0 %; Platelet Count 177 10^3/cmm (130-400); Red Blood Count 2.66 10^6/uL (4.1-5.3); Red Cell Distribution Width 15.4 % (12.1-15.1); White Blood Count 4.3 10^3/uL (4.0-10.0)
[2020-02-17 04:43] LABS: Alanine Aminotransferase 8 U/L (0-33); Albumin Level 3.2 g/dL (3.5-5.2); Alkaline Phosphatase 76 IU/L (35-105); Anion Gap 11.4 (5-19); Aspartate Amino Transferase 9 U/L (0-32); Blood Urea Nitrogen 5 mg/dL (8-23); Calcium 9.1 mg/dL (8.5-10.5); Carbon Dioxide 24 mmol/L (22-29); Chloride 107 mmol/L (98-107); Globulin 2.6 g/dL (1.3-4.6); Glucose 154 mg/dL (65-115); Magnesium 1.8 mg/dL (1.7-2.3); Osmolality Calculated 287 mOsm/kg (285-295); Phosphorus 1.7 mg/dL (2.5-4.5); Potassium 3.4 mmol/L (3.5-5.1); Sodium 139 mmol/L (136-145); Total Bilirubin 0.8 mg/dL (0.15-1.2); Total Protein 5.8 g/dL (6.6-8.7)
[2020-02-17] MEDS: metroNIDAZOLE IV 500 MG/100 ML PREMIX 100 MG IV ×3 (05:22→21:06)
[2020-02-17] MEDS: cefTAZidime 1,000 MG in sodium chloride 0.9% (plus) 50 ML 150 MG IV ×2 (06:31→18:24)
[2020-02-17] MEDS: iodixanol 320 mg/mL 100mL Btl IV (07:34)
--- NOTE | 2020-02-17 07:46 | P.PN_ITS ---
Subjective Subjective: Interval history: Nursing reports that the patient went for a CAT scan this morning. The images are not in the computer system yet. She says she continues to feel better. She says she has no pain if she is sitting still but sometimes will still feel some left lower quadrant discomfort on moving. Vitals/I&O/Wt Last Vital Signs Temp 98.3 F 02/17/20 04:00 Pulse 77 02/17/20 04:00 Resp 16 02/17/20 04:00 BP 144/75 02/17/20 04:00 Pulse Ox 96 02/17/20 04:00 02/16/20 02/17/20 02/17/20 22:59 06:59 14:59 Intake Total 330 / 1370 500 / 1370 Output Total 600 / 600 Balance 330 / 770 -100 / 770 Physical Exam Narrative: EXAM NARRATIVE: The patient seems to have less tenderness daily in the left lower quadrant. Data : 02/17/20 03:51 02/17/20 03:51 A&P Assessment and plan (1) Perforated diverticulum of large intestine: Continue daily improvement. Await CT image interpretation. Status: Acute (2) Anemia: The patient has a history of anemia, but says the last time she had have a transfusion was perhaps 6 months ago around the time she was being treated for her cervical cancer. I will leave any transfusions to the discretion of the hospitalist team. Status: Acute Attestations Medical Necessity Statement*: See admitting service's notation. Coding Level of Care Code Acute Fluorescent Solution Mixer for Asha Alanis Diagnoses Perforated diverticulum of large intestine K57.20 Anemia D64.9
--- NOTE | 2020-02-17 08:00 | CT_ITS ---
WS: [id number] CT ABDOMEN AND PELVIS WITH CONTRAST HISTORY: acute diverticulitis TECHNIQUE: Imaging performed of the abdomen and pelvis with IV contrast. Single phase imaging of the abdomen. Coronal and sagittal reformats are submitted. All CT scans at [facility] use at least one of these dose optimization techniques: automated exposure control; mA and/or kV adjustment per patient size (includes targeted exams where dose is matched to clinical indication); or iterativ e reconstruction. IV CONTRAST: Omnipaque 300; 95 mL IV. Oral contrast: Yes. DLP: 1382.61 mGy.cm COMPARISON: 02/14/2020 Lower thorax: Mild dependent changes at the lung bases. Heart is normal size. No hiatal hernia. Liver/biliary system: Mild diffuse hepatic steatosis. No mass or bile duct dilatation. Gallbladder: Well distended gallbladder with numerous stones. No adjacent inflammation. Pancreas: Normal. Spleen: Normal size spleen with granulomata. Adrenal glands: Normal. Right kidney: Mild perinephric stranding with no stone, mass or obstruction. Left kidney: Mild perinephric standing with no stone, mass or obstruction. Aorta: Mild atherosclerosis. No aneurysm. Lymphadenopathy: None. Free fluid: None. GI tract: No significant change in the LEFT lower quadrant diverticular abscess since 02/14/2020. Deve loping abscess contains air and incompletely formed wall measuring 2.3 x 1.6 cm. Moderate amount of a djacent surrounding inflammation. There are extensive diverticula noted in the descending and sigmoid colon. There is a tiny abscess in the wall of the sigmoid colon at the same level of the larger absc ess. Maximum diameter is 7.7 mm. Abdominal wall: Unremarkable abdominal wall. No hernia. Pelvis: Uterus is midline. Fluid distention of the endometrium. Cervical stenosis is not excluded. No pelvic masses. Bones: Grade 1 anterolisthesis of L5 by 10 mm. Moderate disc space narrowing at L5-S1. Bilateral pars defects at L5. CT/CT abdomen pelvis w con* [id number] IMPRESSION: 1. No significant change in the LEFT lower quadrant diverticular abscess measu ring 2.3 x 1.6 cm. Pericolonic inflammation has not progressed. 2. There is also small, less than 1 cm abscess in the wall of the sigmoid colo n. 3. Cholelithiasis without acute cholecystitis.
[2020-02-17 08:08] LABS: Glucose Point of Care 146 mg/dL (70-110)
[2020-02-17] MEDS: pantoprazole DR 40 mg Tablet PO ×2 (08:44→18:24)
[2020-02-17] MEDS: nystatin 100,000 unit/mL UDC 5 mL 500000 UNIT PO ×4 (08:44→21:09)
[2020-02-17] MEDS: D5-NS 0.45% + KCL 20 mEq 20 MEQ/1,000 ML BAG 75 MEQ IV (08:44)
[2020-02-17] MEDS: citalopram 20 mg Tablet 40 MG PO (08:44)
[2020-02-17] MEDS: levothyroxine 150 mcg Tablet PO (08:44)
--- NOTE | 2020-02-17 09:07 | PC.SOCIAL ---
IMM Update Pg. 2 of IMM updated with patient who verbalized understanding. Copy provided.
[2020-02-17 10:56] LABS: Glucose Point of Care 122 mg/dL (70-110)
--- NOTE | 2020-02-17 14:24 | P.PN_ITS ---
Subjective Subjective: Interval history: repeated CT thi9s morning due to abdominal distension, no changes in bre intrabadominal abscess. 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 No added benefit to containing Cipro+ceftazidime due to overlapping spectrum. -Serial abdominal exams -We will continue to hold Eliquis due to anemia and positive occult blood in stool Status: Acute (2) Perforated diverticulum of small intestine: Status: Acute (3) Left leg DVT: -Has been on Eliquis for the last month -Currently on hold due to concerns for anemia, hemoglobin 8.9 - repeat duplex with non occlusive thrombus in peroneal and popliteal veins, assess for IVC filter, Intervention cards consult placed Status: Acute (4) Hypokalemia: -3.4 today, we will give 40 mEq of po potassium Status: Acute (5) CKD (chronic kidney disease) stage 2, GFR 60-89 ml/min: Creatinine 1.3 Status: Acute (6) Chronic anemia: -Has had a transfusion in the last 3 months -Has had significant pancytopenia secondary to chemotherapy -FOBt+ -Hemoglobin today 7.6 -Possibly related to slow GI bleed related to her recent anticoagulation with Eliquis -After discussing the risks and benefits, agreed to hold Eliquis, hold blood thinners, -s/p 1PRBC transfusion Status: Inactive (7) Hypothyroidism: -Continue levothyroxine, check TSH Status: Inactive Qualifiers: Hypothyroidism type: unspecified Qualified Code(s): E03.9 - Hypothyroidism, unspecified (8) Gastroesophageal reflux disease: Status: Inactive Qualifiers: Esophagitis presence: esophagitis presence not specified Qualified Code(s): K21.9 - Gastro-esophageal reflux disease without esophagitis (9) Anxiety: Status: Inactive (10) Cervical cancer, FIGO stage EVARISTO: Status: Inactive (11) Hypertension: Status: Inactive Qualifiers: Hypertension type: essential hypertension Qualified Code(s): I10 - Ess ential (primary) hypertension (12) Diabetes mellitus: -Low-dose sliding scale -Continue Lantus 20 units at bedtime Status: Inactive Qualifiers: Diabetes mellitus complication status: without complication Diabetes m ellitus valuation consultant insulin use: without senior care use Diabetes mellitus type: type 2 Qualified Code(s): E11.9 - Type 2 diabetes mellitus without complications Additional A&P Information Full code SCDs for DVT prophylaxis When seen by surgery, and deemed no surgical intervention, continue Eliquis for DVT prophylaxis Attestations Medical Necessity Statement*: ongoing need for iv abx for intra abdominal absc ess Coding Level of Care Code Acute Director [employer] for [facility] Diagnoses Acute diverticulitis K57.92 Perforated diverticulum of small intestine K57.00 Left leg DVT I82.402 Hypokalemia E87.6 CKD (chronic kidney disease) stage 2, GFR 60-89 ml/min N18.2 Chronic anemia D64.9 Hypothyroidism E03.9 Hypothyroidism type: unspecified Gastroesophageal reflux disease K21.9 Esophagitis presence: esophagitis presence not specified Anxiety F41.9 Cervical cancer, FIGO stage EVARISTO C53.9 Hypertension I10 Hypertension type: essential hypertension Diabetes mellitus E11.9 Diabetes mellitus complication status: without complication Diabetes mellitus senior care insulin use: without senior care use Diabetes mellitus type: type 2
[2020-02-17 16:50] LABS: Glucose Point of Care 132 mg/dL (70-110)
[2020-02-17] MEDS: ondansetron 2 mg/ML SDV 2 mL 4 MG IVP (18:29)
[2020-02-17] MEDS: atorvastatin 40 mg Tablet 80 MG PO (21:07)
[2020-02-17] MEDS: ALPRAZolam 0.5 mg Tablet PO (21:09)
[2020-02-17 21:22] LABS: Glucose Point of Care 220 mg/dL (70-110)
[2020-02-18 04:00] VITALS: BP 118/73; PULSE 83; RESP 20; TEMP 36.9; O2SAT 98
[2020-02-18 05:03] LABS: Eosinophils % 0.5 %; Hematocrit 27.5 % (37.0-47.0); Hemoglobin 8.9 g/dL (11.5-15.3); Lymphocytes # 0.8 10^3/uL (0.8-4.8); Lymphocytes % 18.9 %; Mean Corpuscular HGB Conc 32.4 g/dL (30.0-36.0); Mean Corpuscular Hemoglobin 31.9 pg (28.0-34.0); Mean Corpuscular Volume 98.6 fL (81-99); Mean Platelet Volume 8.8 fL (7.4-10.4); Monocytes # 0.3 10^3/uL (0.2-0.9); Monocytes % 6.6 %; Neutrophils # 3.21 10^3/uL (1.8-7.7); Neutrophils % 73.1 %; Nucleated Red Blood Cells % 0 %; Platelet Count 183 10^3/cmm (130-400); Red Blood Count 2.79 10^6/uL (4.1-5.3); Red Cell Distribution Width 15.1 % (12.1-15.1); White Blood Count 4.4 10^3/uL (4.0-10.0)
[2020-02-18] MEDS: metroNIDAZOLE IV 500 MG/100 ML PREMIX 100 MG IV ×3 (05:04→20:37)
[2020-02-18 05:24] LABS: Alanine Aminotransferase 6 U/L (0-33); Albumin Level 3.1 g/dL (3.5-5.2); Alkaline Phosphatase 78 IU/L (35-105); Anion Gap 12.6 (5-19); Aspartate Amino Transferase 8 U/L (0-32); Blood Urea Nitrogen 5 mg/dL (8-23); Calcium 9.4 mg/dL (8.5-10.5); Carbon Dioxide 23 mmol/L (22-29); Chloride 107 mmol/L (98-107); Creatinine Clr Calc Pharmacy 46.6638; Globulin 2.7 g/dL (1.3-4.6); Glucose 176 mg/dL (65-115); Osmolality Calculated 288 mOsm/kg (285-295); Potassium 3.6 mmol/L (3.5-5.1); Sodium 139 mmol/L (136-145); Total Bilirubin 0.7 mg/dL (0.15-1.2); Total Protein 5.8 g/dL (6.6-8.7)
[2020-02-18 05:54] LABS: Slide Review Slide Review Perform
[2020-02-18] MEDS: cefTAZidime 1,000 MG in sodium chloride 0.9% (plus) 50 ML 150 MG IV ×3 (06:09→23:57)
[2020-02-18 06:34] LABS: Glucose Point of Care 154 mg/dL (70-110)
--- NOTE | 2020-02-18 06:54 | P.PN_ITS ---
Subjective Subjective: Interval history: The patient still think she is getting slightly better daily. She is still having loose stool. She is still is on clear liquids and does not have much of a progressing appetite. Vitals/I&O/Wt Last Vital Signs Temp 98.5 F 02/18/20 04:00 Pulse 83 02/18/20 04:00 Resp 20 H 02/18/20 04:00 BP 118/73 02/18/20 04:00 Pulse Ox 98 02/18/20 04:00 02/17/20 02/17/20 02/18/20 14:59 22:59 06:59 Intake Total 400 / 1020 520 / 1020 100 / 1020 Output Total 600 / 1100 300 / 1100 200 / 1100 Balance -200 / -80 220 / -80 -100 / -80 Physical Exam Narrative: EXAM NARRATIVE: The patient's remaining tenderness seems to be confined to the left lower quadrant laterally. Bowel sounds are present. Data : 02/18/20 04:00 02/18/20 04:00 Micro: Microbiology 02/17/20 14:43 C.difficile Toxin B Gene (PCR) - Final Stool Routine Collection CT Abd/Pel: Radiologist's impression: CT abdomen/pelvis 02/17/2020 iMPRESSION: 1. No significant change in the LEFT lower quadrant diverticular abscess measuring 2.3 x 1.6 cm. Pericolonic inflammation has not progressed. 2. There is also small, less than 1 cm abscess in the wall of the sigmoid colon. 3. Cholelithiasis without acute cholecystitis. A&P Assessment and plan (1) Perforated diverticulum of large intestine: CT yesterday did not reveal any progression of the inflammatory process, but also did not reveal much in the way of improvement. Dr. Paez has modified the antibiotic regimen. Continue IV antibiotics. Status: Acute (2) Anemia: The patient has a history of anemia, but says the last time she had have a transfusion was perhaps 6 months ago around the time she was being treated for her cervical cancer. I will leave any transfusions to the discretion of the hospitalist team. Status: Acute Attestations Medical Necessity Statement*: See admitting service's notation. 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
[2020-02-18 07:38] VITALS: BP 138/81; PULSE 82; RESP 14; TEMP 36.7; O2SAT 96
[2020-02-18] MEDS: citalopram 20 mg Tablet 40 MG PO (09:16)
[2020-02-18] MEDS: pantoprazole DR 40 mg Tablet PO ×2 (09:16→17:14)
[2020-02-18] MEDS: levothyroxine 150 mcg Tablet PO (09:16)
[2020-02-18] MEDS: D5-NS 0.45% + KCL 20 mEq 20 MEQ/1,000 ML BAG 75 MEQ IV (09:18)
[2020-02-18] MEDS: nystatin 100,000 unit/mL UDC 5 mL 500000 UNIT PO ×4 (09:18→20:38)
[2020-02-18 09:25] VITALS: BP 136/78; PULSE 87; RESP 18; TEMP 36.8; O2SAT 97
[2020-02-18 11:11] LABS: Glucose Point of Care 165 mg/dL (70-110)
--- NOTE | 2020-02-18 12:05 | PM.CONSULT ---
Providers/Reason For Consult Consulting Physican/Specialty*: Sage Lester MD/interventional cardiology Reason for Consult*: DVT of right leg, assessment for IVC filter placement Attending Physician: Rochelle Paez MD Primary Care Provider: Chapin Keita MD History of Present Illness History of Present Illness Sharon Sotelo is a 74 year old female with past medical history of diabetes, hypothyroidism, and recent right lower extremity DVT who was admitted to the hospital with acute diverticulitis with microperforation of the large intestine. Cardiology was consulted for assessment of IVC placement. Patient was diagnosed with right lower extremity DVT last month and was started on Eliquis. Doppler ultrasound of right lower extremity done during this admission shows presence of nonocclusive thrombus in the right lower extremity popliteal and peroneal veins. No evidence of thrombus is seen in the proximal veins. Patient denies any leg pain today. Because of her low hemoglobin and possible need for surgery, her Eliquis was stopped. Review of Systems Const: Denies: fever(s), chills, fatigue or malaise Eyes: Denies: change in vision or blurry vision ENMT: Denies: nasal congestion Resp: Denies: dyspnea, productive cough, non-productive cough or wheezing GI: Reports: abdominal pain, nausea and bloating; Denies: vomiting, hematemesis, diarrhea, constipation, change in bowel habits, pain on defecation, change in stool character, hematochezia or melena : Denies: flank pain, dysuria or urinary frequency Musc: Denies: neck pain or back pain Skin/Breast: Denies: rash Neuro: Denies: headache(s), dizziness or vertigo Psych: Denies: anxiety or depression Endo: Denies: polyuria or polydipsia Meds/Allergies Home Medications and Allergies Home Medications Medication Instructions Recorded Confirmed Last Taken Type alprazolam 0.5 mg PO BID PRN 12/21/19 02/14/20 02/14/20 History citalopram 40 mg PO DAILY 12/21/19 02/14/20 02/14/20 History hydrocodone-acetaminophen 1 tab PO Q6H PRN 12/21/19 02/14/20 02/14/20 History levothyroxine 150 mcg PO DAILY 12/21/19 02/14/20 02/14/20 History lorazepam 1 mg PO TID PRN 12/21/19 02/14/20 12/21/19 History metformin 1,000 mg PO DAILY 12/21/19 02/14/20 12/20/19 History pantoprazole 20 mg PO DAILY PRN 12/21/19 02/14/20 02/14/20 History rosuvastatin [Crestor] 40 mg PO BEDTIME 12/21/19 02/14/20 02/13/20 History nystatin 500,000 unit PO QID #60 ml 12/24/19 02/14/20 Unknown Rx apixaban [Eliquis] 5 mg PO BID 02/14/20 02/14/20 02/14/20 History ciprofloxacin HCl [Cipro] 500 mg PO BID 02/14/20 02/14/20 02/14/20 History dexamethasone 1 mg PO DAILY 02/14/20 02/14/20 Unknown History insulin aspart U-100 [Novolog See Rx Instructions .ROUTE .COMPLEX 02/14/20 02/14/20 Unknown History Flexpen U-100 Insulin] insulin detemir U-100 [Levemir 20 unit SUBCUT BEDTIME 02/14/20 02/14/20 02/13/20 History FlexTouch U-100 Insuln] metronidazole [Flagyl] 500 mg PO TID 02/14/20 02/14/20 02/14/20 History nitrofurantoin monohyd/m-cryst 100 mg PO BID 02/14/20 02/14/20 02/14/20 History [Macrobid] Allergies Allergy/AdvReac Type Severity Reaction Status Date / Time Penicillins Allergy rash as a Verified 02/14/20 14:53 child Current Medications Current Medications Generic Name Dose Route Start Last Admin Trade Name Freq PRN Reason Stop Dose Admin Hydrocodone Bitart/Acetaminophen 1 tab 02/14/20 13:57 02/15/20 09:01 [place] 7.5-325 Mg PO 1 tab Q6H PRN Administration Pain Alprazolam 0.5 mg 02/14/20 13:57 02/17/20 21:09 Xanax PO 0.5 mg BID PRN Administration Anxiety Atorvastatin Calcium 80 mg 02/14/20 21:00 02/17/20 21:07 Lipitor PO 80 mg BEDTIME JOAQUÍN Administration Citalopram Hydrobromide 40 mg 02/15/20 09:00 02/18/20 09:16 Celexa PO 40 mg DAILY JOAQUÍN Administration Metronidazole 500 mg in 100 mls @ 100 mls/hr 02/14/20 20:30 02/18/20 05:04 Flagyl Iv IV 100 mls/hr Q8H JOAQUÍN Administration Protocol Ceftazidime 1,000 mg/ Sodium 50 mls @ 150 mls/hr 02/15/20 18:00 02/18/20 06:09 Chloride IV 150 mls/hr Q12H JOAQUÍN Administration Protocol Potassium Chloride/Dextrose/Sod Cl 20 meq in 1,000 mls @ 75 mls/hr 02/16/20 09:45 02/18/20 09:18 D5-Ns 0.45% + Kcl 20 Meq IV 75 mls/hr .[id number] JOAQUÍN Administration Vancomycin HCl 1,500 mg/ 250 mls @ 166.667 mls/hr 02/17/20 15:00 02/17/20 16:56 Sodium Chloride IV Infused Q24H JOAQUÍN Infusion Protocol Insulin Aspart 0 unit 02/14/20 18:00 02/18/20 11:38 Novolog SUBCUT 2 unit TIDWM JOAQUÍN Administration Protocol Insulin Detemir 8 unit 02/15/20 21:55 02/17/20 21:07 Levemir SUBCUT 8 unit BEDTIME JOAQUÍN Administration Levothyroxine Sodium 150 mcg 02/15/20 09:00 02/18/20 09:16 Synthroid PO 150 mcg DAILY JOAQUÍN Administration Nystatin 500,000 unit 02/14/20 17:00 02/18/20 09:18 Nystatin PO 500,000 unit QID JOAQUÍN Administration Ondansetron HCl 4 mg 02/14/20 13:59 02/17/20 18:29 Zofran IVP 4 mg Q8H PRN Administration vomiting, or N/V if npo Pantoprazole Sodium 40 mg 02/15/20 13:05 02/18/20 09:16 Protonix PO 40 mg BID JOAQUÍN Administration PFSH Acute PFSH: Medical History Anxiety -anxiolytics PRN Cervical cancer, FIGO stage 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 Ybarra and Dr. Downey -has received Cisplatin chemotherapy with noted toxicity including nausea, anorexia, worsening pancytopenia requiring transfusion -pending restaging PET/CT to determine next steps in management -on oral steroids Cholelithiasis Chronic anemia -chronic normocytic anemia -baseline Hg is around 10 -continue to monitor H/H; drop likely dilutional CKD (chronic kidney disease) stage 2, GFR 60-89 ml/min Diabetes mellitus -A1c-6.6 (09/2019) -Accuchecks, ISS, hypoglycemia precautions -hyperglycemia with steroids -consistent carb diet Gastroesophageal reflux disease -PPI IV Hypertension -normotensive, continue to monitor vital signs -continue to hold oral antihypertensives due to dehydration, renal impairment (on ACEi-HCTZ combination); can resume on d/c Hypothyroidism -on levothyroxine Morbid obesity -BMI-34 kg/m2 Oropharyngeal candidiasis -apparent oral lesions on examination; ongoing odynophagia, dysphagia; symptoms resolved -opportunistic infection in immunocompromised patient -loaded with fluconazole 400 mg x 1, now on 200 mg once daily; due to improvement will switch to PO, plan to treat x 7 days -off IVF hydration; improved oral intake -tolerating GI soft diet -nystatin swish and swallow, magic mouthwash -pain control as needed -appreciate ST evaluation; cleared for regular diet/liquids Rectal fissure -on exam with some intermittent bleeding; no more so far -continue to monitor H/H; drop likely dilutional Surgical History H/O pelvic surgery Cervical biopsy, cystoscopy with biopsy, rigid proctoscopy to 15 cm ([place]) Family History Mother CAD (coronary artery disease) Father Aneurysm brain Sister Cancer breast cancer Family/Other Cancer breast cancer in niece Social History Smoking and tobacco status: never smoked Alcohol intake: never Household members: children Housing: House Vitals/I&O/Wt Last Vital Signs Temp 98.2 F 02/18/20 09:25 Pulse 87 02/18/20 09:25 Resp 18 02/18/20 09:25 BP 136/78 02/18/20 09:25 Pulse Ox 97 02/18/20 09:25 02/17/20 02/18/20 02/18/20 22:59 06:59 14:59 Intake Total 1520 / 1920 100 / 2020 240 / 240 Output Total 300 / 900 200 / 1100 Balance 1220 / 1020 -100 / 920 240 / 240 Physical Exam Narrative: EXAM NARRATIVE: GENERAL: Patient is alert, awake and oriented x3. [] NECK: No jugular vein distension. [] HEENT: No cyanosis. No icterus. No pallor. [] HEART: Regular S1 and S2. No murmur, rub or gallop. [] LUNGS: Clear to auscultate bilaterally. [] CENTRAL NERVOUS SYSTEM: Grossly nonfocal. [] EXTREMITIES: Lower extremities with no edema bilaterally. Pulses palpable in the lower extremities, both dorsalis pedis and posterior tibial. [] Data Micro: Micro: Microbiology 02/17/20 14:43 C.difficile Toxin B Gene (PCR) - Fin al Stool Routine Col lection A&P Assessment and plan (1) Right leg DVT: Status: Acute (2) Acute diverticulitis: Status: Acute Patient has nonocclusive thrombus in the popliteal and peroneal veins of the right lower extremity. No evidence of thrombus in more proximal veins. Probability of significant complication related to distal lower extremity DVT is low. Eliquis was held because of concern of anemia and possible need of surgery. Consider low-dose Eliquis at 2.5 mg twice daily or aspirin(depending on assessment of bleeding risk) at this time. Doppler ultrasound of the lower extremity in 1 week. If there is extension of DVT to more proximal veins, we will consider placement of IVC filter. Please call with questions. 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
--- NOTE | 2020-02-18 12:55 | P.PN_ITS ---
Subjective Subjective: Interval history: No acute overnight events. Continues to have poor appetite. One episode of diarrhea today. C. difficile PCR came back as negative. Continues to be on clears. Reluctant to advance diet at this time. Abdominal fullness unchanged. 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 Data : 02/18/20 04:00 02/18/20 04:00 Micro: Microbiology 02/17/20 14:43 C.difficile Toxin B Gene (PCR) - Final Stool Routine Collection A&P Assessment and plan (1) Acute diverticulitis: Status: Acute (2) Perforated diverticulum of small intestine: Status: Acute (3) Left leg DVT: -Has been on Eliquis for the last month -Currently on hold due to concerns for anemia, hemoglobin 8.9 - repeat duplex with non occlusive thrombus in peroneal and popliteal veins, assess for IVC filter, Intervention cards consult placed Status: Acute (4) Hypokalemia: -3.4 today, we will give 40 mEq of po potassium Status: Acute (5) CKD (chronic kidney disease) stage 2, GFR 60-89 ml/min: Creatinine 1.3 Status: Acute (6) Chronic anemia: Status: Inactive (7) Hypothyroidism: -Continue levothyroxine, check TSH Status: Inactive Qualifiers: Hypothyroidism type: unspecified Qualified Code(s): E03.9 - Hypothyroidism, unspecified (8) Gastroesophageal reflux disease: Status: Inactive Qualifiers: Esophagitis presence: esophagitis presence not specified Qualified Code(s): K21.9 - Gastro-esophageal reflux disease without esophagitis (9) Anxiety: Status: Inactive (10) Cervical cancer, FIGO stage EVARISTO: Status: Inactive (11) Hypertension: Status: Inactive Qualifiers: Hypertension type: essential hypertension Qualified Code(s): I10 - Essential (primary) hypertension (12) Diabetes mellitus: -Low-dose sliding scale -Continue Lantus 20 units at bedtime Status: Inactive Qualifiers: Diabetes mellitus complication status: without complication Diabetes mellitus care home insulin use: without care home use Diabetes mellitus type: type 2 Qualified Code(s): E11.9 - Type 2 diabetes mellitus without complications (13) Perforated diverticulum of large intestine: Status: Acute (14) Intra-abdominal abscess: Status: Acute Additional A&P Information 74-year-old lady with 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 Seen as an outpatient by Dr. Keita with her CT abdomen pelvis on showing thickening of the sigmoid colon with associated inflammatory changes raising concern for sigmoid diverticulitis. No evidence of recurrent or metastatic neoplasm at that time. She was started on oral antibiotics with Cipro and Flagyl, however continued to have pain. Presented to the ER on February 13 due to worsening pain and lack of bowel movement for 3 days. # Acute diverticulitis with perforation and resulting abdominal abscess -CAT scan on February 13 showed perforated acute diverticulitis with an abscess measuring 2.1 x 1.6 cm. Underwent a repeat CAT scan yesterday due to noted increasing distention which showed no significant change in the left lower quadrant abscess. Was also noted to be a subcentimeter abscess in the wall of the sigmoid colon. -These are too small for CT-guided drainage. No current urgent indication for open surgical procedures. -appreciate surgical recommendations -Diarrhea is improving, C. difficile PCR is negative -Currently on a liquid diet, although appetite remains poor. Uncertain if appetite problems are new or have been ongoing for a longer duration. -Continue ceftazidime, increase dose to 1 g IV every 8 hours (renally adjusted ) , IV vancomycin for gram-positive and enterococcal coverage and Flagyl -If patient continues to remain stable over the next 24 to 48 hours, will plan to discharge on 2 weeks of IV ertapenem 1 g daily for home use with rpt CT in 2 weeks. Offered placement at SNF, however patient declined stating she wishes to return home. States that her son and granddaughter would be able to help her. -Serial abdominal exams -Picc line #Acute on chronic anemia. -Per review of old oncology records, patient has developed some degree of pancytopenia after her chemoradiation. -Baseline hemoglobin not significantly changed from her baseline. FOBT is positive, in the past it has been attributed that rectal bleeding secondary to anal fissure. -She was started on Eliquis in January 2020 due to lower extremity DVT involving the SFV, peroneal and popliteal veins. Eliquis is currently on hold due to anemia and FOBT positive. #Left leg DVT. As above noted that patient developed DVT in December. Venous Doppler performed during this admission shows partial nonocclusive thrombi in the peroneal and popliteal veins. This appears to be an improvement over the last 1. Intervention heat treating furnace tender service was consulted to assess for IVC filter placement given that Eliquis is to remain on hold for now. However, given that she has no proximal vein involvement at this present time, it was recommended to consider low-dose Eliquis versus aspirin. After discussion with the patient, we have decided to start low-dose aspirin at 81 mg p.o. daily and follow-up with a repeat ultrasound in 1 week. If there is noted to be progression then she will be a candidate for IVC filter placement. #Diabetes mellitus: Currently on insulin sliding scale. Hypokalemia: Oral repletion as needed. full code dvt ppx: start heparin Attestations Medical Necessity Statement*: need for iv abx for intraabdominal abscess Coding Level of Care Code Acute Floor Director for [facility] Diagnoses Acute diverticulitis K57.92 Perforated diverticulum of small intestine K57.00 Left leg DVT I82.402 Hypokalemia E87.6 CKD (chronic kidney disease) stage 2, GFR 60-89 ml/min N18.2 Chronic anemia D64.9 Hypothyroidism E03.9 Hypothyroidism type: unspecified Gastroesophageal reflux disease K21.9 Esophagitis presence: esophagitis presence not specified Anxiety F41.9 Cervical cancer, FIGO stage EVARISTO C53.9 Hypertension I10 Hypertension type: essential hypertension Diabetes mellitus E11.9 Diabetes mellitus complication status: without complication Diabetes mellitus care home insulin use: without care home use Diabetes mellitus type: type 2 Perforated diverticulum of large intestine K57.20 Intra-abdominal abscess K65.1
--- NOTE | 2020-02-18 14:05 | XR_ITS ---
WS: [id number] EXAM: AP CHEST: PORTABLE UPRIGHT DATE OF EXAM: 02/18/2020, 1435 hours COMPARISON: Chest x-ray from 12/09/2014 HISTORY: Patient is 74 years old with PICC line placement.. FINDINGS: The cardiac silhouette is normal in size. The mediastinal contours show interval placement of righ t-sided PICC line ending in the distal SVC region. Stomach contours are rotated to the right.. The pulmonary vascularity is normal. Left lung is denis r other than minimal is atelectasis left lung base. There is some minimal patchy linear infiltrate/at electasis in the right lung base as well. There is no effusion or pneumothorax. No acute bony abnor mality is seen. XR/XR chest 1V portable [id number] IMPRESSION: PICC line ends in the SVC region. Minimal wispy atelectasis left lung base. Slight infiltrate in the right lung base. Question pneumonic versus atelectasis in nature.
--- NOTE | 2020-02-18 14:15 | PC.NURSE ---
Pt off the floor to OPS for her PICC placement
[2020-02-18 15:35] VITALS: BP 146/71; PULSE 78; RESP 16; TEMP 37.2; O2SAT 97
[2020-02-18 17:48] LABS: Glucose Point of Care 131 mg/dL (70-110)
[2020-02-18 20:00] VITALS: BP 138/70; PULSE 85; RESP 20; TEMP 37.1; O2SAT 96
[2020-02-18] MEDS: atorvastatin 40 mg Tablet PO (20:44)
[2020-02-19] VITALS (9 sets, daily range): BP systolic 129–154; BP diastolic 69–81; PULSE 77–84; RESP 14–20; TEMP 36.9–37.2; O2SAT 95–97
[2020-02-19] MEDS: metroNIDAZOLE IV 500 MG/100 ML PREMIX 100 MG IV (04:30)
[2020-02-19 04:59] LABS: Basophils % 0.3 %; Eosinophils % 0.8 %; Hematocrit 24.8 % (37.0-47.0); Hemoglobin 7.7 g/dL (11.5-15.3); Lymphocytes # 0.4 10^3/uL (0.8-4.8); Lymphocytes % 10.3 %; Mean Corpuscular Hemoglobin 30.9 pg (28.0-34.0); Mean Corpuscular Volume 99.6 fL (81-99); Mean Platelet Volume 8.9 fL (7.4-10.4); Monocytes # 0.4 10^3/uL (0.2-0.9); Monocytes % 9.8 %; Neutrophils # 2.94 10^3/uL (1.8-7.7); Neutrophils % 77.7 %; Nucleated Red Blood Cells % 0 %; Platelet Count 159 10^3/cmm (130-400); Red Blood Count 2.49 10^6/uL (4.1-5.3); Red Cell Distribution Width 15.1 % (12.1-15.1); White Blood Count 3.8 10^3/uL (4.0-10.0)
[2020-02-19 05:27] LABS: Alanine Aminotransferase 7 U/L (0-33); Albumin Level 2.9 g/dL (3.5-5.2); Alkaline Phosphatase 64 IU/L (35-105); Anion Gap 13.2 (5-19); Aspartate Amino Transferase 7 U/L (0-32); Blood Urea Nitrogen 8 mg/dL (8-23); Calcium 8.6 mg/dL (8.5-10.5); Carbon Dioxide 22 mmol/L (22-29); Chloride 109 mmol/L (98-107); Globulin 2.3 g/dL (1.3-4.6); Glucose 143 mg/dL (65-115); Osmolality Calculated 290 mOsm/kg (285-295); Potassium 3.2 mmol/L (3.5-5.1); Sodium 141 mmol/L (136-145); Total Bilirubin 0.5 mg/dL (0.15-1.2); Total Protein 5.2 g/dL (6.6-8.7)
[2020-02-19] MEDS: D5-NS 0.45% + KCL 20 mEq 20 MEQ/1,000 ML BAG 75 MEQ IV (08:38)
[2020-02-19] MEDS: cefTAZidime 1,000 MG in sodium chloride 0.9% (plus) 50 ML 150 MG IV (08:39)
[2020-02-19] MEDS: citalopram 20 mg Tablet 40 MG PO (08:43)
[2020-02-19] MEDS: aspirin 81 mg EC Tablet PO (08:43)
[2020-02-19] MEDS: levothyroxine 150 mcg Tablet PO (08:43)
[2020-02-19] MEDS: pantoprazole DR 40 mg Tablet PO ×2 (08:43→17:46)
[2020-02-19] MEDS: nystatin 100,000 unit/mL UDC 5 mL 500000 UNIT PO ×4 (08:43→19:37)
--- NOTE | 2020-02-19 09:46 | PM.PN ---
Subjective Subjective: Interval history: The patient said she is slowly getting better and feels a little better every day. Vitals/I&O/Wt Last Vital Signs Temp 98.7 F 02/19/20 07:16 Pulse 81 02/19/20 07:16 Resp 18 02/19/20 07:16 BP 154/74 02/19/20 07:16 Pulse Ox 97 02/19/20 07:16 02/18/20 02/19/20 02/19/20 22:59 06:59 14:59 Intake Total 1510 / 2270 300 / 2270 240 / 240 Output Total 350 / 350 Balance 1510 / 2270 300 / 2270 -110 / -110 Physical Exam Narrative: EXAM NARRATIVE: No big changes. Data : 02/19/20 04:25 02/19/20 04:25 A&P Assessment and plan (1) Perforated diverticulum of large intestine: Continue antibiotics. Patient will likely be discharged on Invanz and discussing the plan with Dr. Paez yesterday. Status: Acute (2) Anemia: The patient has a history of anemia, but says the last time she had have a transfusion was perhaps 6 months ago around the time she was being treated for her cervical cancer. I will leave any transfusions to the discretion of the hospitalist team. Status: Acute Attestations Medical Necessity Statement*: See admitting service's notation. Coding Level of Care Code Acute Ammunition Storekeeper for Asha Alanis Diagnoses Perforated diverticulum of large intestine K57.20 Anemia D64.9
--- NOTE | 2020-02-19 10:30 | PC.SOCIAL ---
IMM updated Updated pt on Pg 2 IMM. Provided a copy to pt. No needs voiced. Signed,dated, & timed copy in chart.
[2020-02-19 10:50] LABS: Glucose Point of Care 186 mg/dL (70-110)
--- NOTE | 2020-02-19 13:04 | P.PN_ITS ---
Subjective Subjective: Interval history: The patient said she is slowly getting better and feels a little better every day. Has somewhat of a more appetite today. We will try her on a full liquid diet. Abdominal discomfort has not worsened. Underwent placement of PICC line today. Hemoglobin at 7.7 today. Medications: Reviewed: Yes Vitals/I&O/Wt Last Vital Signs Temp 98.6 F 02/19/20 10:48 Pulse 77 02/19/20 10:48 Resp 18 02/19/20 10:48 BP 138/74 02/19/20 10:48 Pulse Ox 95 02/19/20 10:48 02/18/20 02/19/20 02/19/20 22:59 06:59 14:59 Intake Total 1509 300 / 2270 240 / 240 Output Total 450 / 450 Balance 1509 300 / 2270 -210 / -210 Physical Exam Narrative: EXAM NARRATIVE: GEN: Awake, alert and oriented, no acute distress CVS: S1S2 N RS: CTA B/L Abd: Soft, mildly distended, discomfort to palpation over the LLQ MEMORANDUM STATEMENT CLERK: no focal neuro deficits Data : 02/19/20 04:25 02/19/20 04:25 A&P Assessment and plan (1) Acute diverticulitis: Status: Acute (2) Perforated diverticulum of small intestine: Status: Acute (3) Left leg DVT: Status: Acute (4) Hypokalemia: -3.4 today, we will give 40 mEq of po potassium Status: Acute (5) CKD (chronic kidney disease) stage 2, GFR 60-89 ml/min: Creatinine 1.3 Status: Acute (6) Chronic anemia: Status: Inactive (7) Hypothyroidism: -Continue levothyroxine, check TSH Status: Inactive Qualifiers: Hypothyroidism type: unspecified Qualified Code(s): E03.9 - Hypothyroidism, unspecified (8) Gastroesophageal reflux disease: Status: Inactive Qualifiers: Esophagitis presence: esophagitis presence not specified Qualified Code(s): K21.9 - Gastro-esophageal reflux disease without esophagitis (9) Anxiety: Status: Inactive (10) Cervical cancer, FIGO stage EVARISTO: Status: Inactive (11) Hypertension: Status: Inactive Qualifiers: Hypertension type: essential hypertension Qualified Code(s): I10 - Essential (primary) hypertension (12) Diabetes mellitus: -Low-dose sliding scale -Continue Lantus 20 units at bedtime Status: Inactive Qualifiers: Diabetes mellitus complication status: without complication Diabetes mellitus alf insulin use: without terminal worker use Diabetes mellitus type: type 2 Qualified Code(s): E11.9 - Type 2 diabetes mellitus without complications (13) Perforated diverticulum of large intestine: Status: Acute (14) Intra-abdominal abscess: Status: Acute Additional A&P Information 74-year-old lady with 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 Seen as an outpatient by Dr. Keita with her CT abdomen pelvis on showing thickening of the sigmoid colon with associated inflammatory changes raising concern for sigmoid diverticulitis. No evidence of recurrent or metastatic neoplasm at that time. She was started on oral antibiotics with Cipro and Flagyl, however continued to have pain. Presented to the ER on February 13 due to worsening pain and lack of bowel movement for 3 days. # Acute diverticulitis with perforation and resulting abdominal abscess -CAT scan on February 13 showed perforated acute diverticulitis with an abscess measuring 2.1 x 1.6 cm. Underwent a repeat CAT scan on 02/16 due to noted increasing distention which showed no significant change in the left lower quadrant abscess. Was also noted to be a subcentimeter abscess in the wall of the sigmoid colon. -These are too small for CT-guided drainage. No current urgent indication for open surgical procedures. -appreciate surgical recommendations -Diarrhea is improving, C. difficile PCR is negative -Currently on a liquid diet, try advancing to full liquid as tolerated by the patient. -Discontinue ceftazidime vancomycin and Flagyl today. Start ertapenem 1 g IV daily in anticipation of discharge over the next 24 to 48 hours. -If patient continues to remain stable over the next 24 to 48 hours, will plan to discharge on 2 weeks of IV ertapenem 1 g daily for home use with rpt CT in 2 weeks. Offered placement at SNF, however patient declined stating she wishes to return home. States that her son and granddaughter would be able to help her. She has in-home services and visiting nurse service. -Serial abdominal exams appear to be stable -Picc line placed today to facilitate above #Acute on chronic anemia. -Per review of old oncology records, patient has developed some degree of pancytopenia after her chemoradiation. -Baseline hemoglobin not significantly changed from her baseline. FOBT is positive, in the past it has been attributed that rectal bleeding secondary to anal fissure. -She was started on Eliquis in January 2020 due to lower extremity DVT involving the SFV, peroneal and popliteal veins. Eliquis is currently on hold due to anemia and FOBT positive. It was also held in anticipation of any surgical procedures that may be needed. However now that patient is clinically stable, we will go ahead and resume Eliquis at a lower dose of 2.5 mg daily. Blood transfusion with 2 units packed cells today. #Left leg DVT. As above noted that patient developed DVT in December. Venous Doppler performed during this admission shows partial nonocclusive thrombi in the peroneal and popliteal veins. This appears to be an improvement over the last one. Intervention software team leader service was consulted to assess for IVC filter placement given that Eliquis is to remain on hold for now. However, given that she has no proximal vein involvement at this present time, it was recommended to consider low-dose Eliquis versus aspirin. After discussion with the patient and her outpatient oncologist Dr. Downey, it has now been decided to resume Eliquis as given her underlying malignancy she remains at a high risk of progression of this DVT/PE. We will start her at a lower dose however of 2.5 mg twice daily upon discharge. Hemoglobin will be followed closely as an outpatient by Dr. Downey. PRBC x2 prior to resuming eliquis #Diabetes mellitus: Currently on insulin sliding scale. # Hypokalemia: Oral repletion as needed. full code dvt ppx: start heparin Attestations Medical Necessity Statement*: Patient stabilizing to slowly improving, plan discharge in the next 24 to 48 hours on IV antibiotics. Coding Level of Care Code Acute Small Animal Veterinarian for [facility] Fwd Diagnoses Acute diverticulitis K57.92 Perforated diverticulum of small intestine K57.00 Left leg DVT I82.402 Hypokalemia E87.6 CKD (chronic kidney disease) stage 2, GFR 60-89 ml/min N18.2 Chronic anemia D64.9 Hypothyroidism E03.9 Hypothyroidism type: unspecified Gastroesophageal reflux disease K21.9 Esophagitis presence: esophagitis presence not specified Anxiety F41.9 Cervical cancer, FIGO stage EVARISTO C53.9 Hypertension I10 Hypertension type: essential hypertension Diabetes mellitus E11.9 Diabetes mellitus complication status: without complication Diabetes mellitus alf insulin use: without terminal worker use Diabetes mellitus type: type 2 Perforated diverticulum of large intestine K57.20 Intra-abdominal abscess K65.1
[2020-02-19] MEDS: potassium chloride oral liq 20 mEq/15 mL UDC 40 MEQ PO (13:41)
[2020-02-19] MEDS: ertapenem 1,000 MG in sodium chloride 0.9% (plus) 100 ML 200 MG IV (13:41)
[2020-02-19 14:41] LABS: Vancomycin Trough 15.7 ug/mL (10-15)
[2020-02-19 16:26] LABS: Glucose Point of Care 127 mg/dL (70-110)
[2020-02-19] MEDS: sodium chloride 0.9% (100 ml) 100 ML 10 ML (17:44)
--- NOTE | 2020-02-19 18:33 | PC.NURSE ---
SHIFT SUMMARY PATIENT HAS DONE WELL TODAY. SHE GOT UP AND SAT IN THE CHAIR FOR AWHILE TODAY. MINIMAL STOOL OUTPUT TODAY AND GOOD URINE OUTPUT. MINIMAL PAIN. PATIENT'S PICC LINE HAS HAD NO COMPLICATIONS UNTIL THIS AFTERNOON. THIS NURSE WAS ATTEMPTING TO ADMINISTER IV ANTIBIOTICS AND THE IV PUMP SHOWED THAT THERE WAS A DOWNSTREAM OCCLUSION. THIS NURSE TRIED TO FLUSH BOTH LUMENS OF THE PICC AND WAS UNSUCCESSFUL. THIS NURSE ASKED CHARGE NURSE PHUONG JOHN TO HELP. WE REPOSITIONED PATIENT'S ARM AND PICC THEN WORKED. AT THIS TIME, PATIENT'S ARM CIRCUMFERENCE IS OKAY AND PICC IS FLOWING WELL. PICC DRESSING CHANGED. THIS NURSE ALSO ADMINISTERED ONE UNIT OF BLOOD TO THE PATIENT FOR A HEMOGLOBIN OF 7.7. CONTINUING TO MONITOR.
[2020-02-19] MEDS: atorvastatin 40 mg Tablet PO (19:36)
[2020-02-19 21:57] LABS: Glucose Point of Care 136 mg/dL (70-110)
[2020-02-20] VITALS: BP 129/81; PULSE 77; RESP 18; TEMP 36.8; O2SAT 95
[2020-02-20 03:42] VITALS: BP 153/76; PULSE 83; RESP 12; TEMP 36.8; O2SAT 97
[2020-02-20] MEDS: D5-NS 0.45% + KCL 20 mEq 20 MEQ/1,000 ML BAG 75 MEQ IV (03:46)
[2020-02-20 05:20] LABS: Basophils % 0.3 %; Eosinophils % 0.8 %; Hematocrit 29.2 % (37.0-47.0); Hemoglobin 9.2 g/dL (11.5-15.3); Lymphocytes # 0.5 10^3/uL (0.8-4.8); Lymphocytes % 13.6 %; Mean Corpuscular HGB Conc 31.5 g/dL (30.0-36.0); Mean Corpuscular Hemoglobin 31.6 pg (28.0-34.0); Mean Corpuscular Volume 100.3 fL (81-99); Mean Platelet Volume 8.6 fL (7.4-10.4); Monocytes # 0.4 10^3/uL (0.2-0.9); Monocytes % 9.3 %; Neutrophils # 2.96 10^3/uL (1.8-7.7); Neutrophils % 74.7 %; Nucleated Red Blood Cells % 0 %; Platelet Count 126 10^3/cmm (130-400); Red Blood Count 2.91 10^6/uL (4.1-5.3); Red Cell Distribution Width 15.4 % (12.1-15.1)
[2020-02-20 05:47] LABS: Alanine Aminotransferase < 5 U/L (0-33); Albumin Level 2.6 g/dL (3.5-5.2); Alkaline Phosphatase 69 IU/L (35-105); Aspartate Amino Transferase 9 U/L (0-32); Blood Urea Nitrogen 7 mg/dL (8-23); Carbon Dioxide 22 mmol/L (22-29); Chloride 109 mmol/L (98-107); Globulin 2.7 g/dL (1.3-4.6); Glucose 140 mg/dL (65-115); Osmolality Calculated 288 mOsm/kg (285-295); Sodium 140 mmol/L (136-145); Total Bilirubin 0.7 mg/dL (0.15-1.2); Total Protein 5.3 g/dL (6.6-8.7)
[2020-02-20 05:54] LABS: Anion Gap 12.6 (5-19); Potassium 3.6 mmol/L (3.5-5.1)
[2020-02-20 07:02] VITALS: BP 163/80; PULSE 85; RESP 18; TEMP 36.8; O2SAT 96
[2020-02-20 07:49] LABS: Glucose Point of Care 163 mg/dL (70-110)
[2020-02-20] MEDS: levothyroxine 150 mcg Tablet PO (08:38)
[2020-02-20] MEDS: pantoprazole DR 40 mg Tablet PO (08:38)
[2020-02-20] MEDS: nystatin 100,000 unit/mL UDC 5 mL 500000 UNIT PO ×2 (08:38→12:29)
[2020-02-20] MEDS: apixaban 5 mg Tablet 2.5 MG PO (08:38)
[2020-02-20] MEDS: citalopram 20 mg Tablet 40 MG PO (08:38)
--- NOTE | 2020-02-20 08:41 | P.PN_ITS ---
Subjective Subjective: Interval history: The patient says her slow improvement continues. She says her stools are still loose, but she has no significant discomfort. Vitals/I&O/Wt Last Vital Signs Temp 98.2 F 02/20/20 07:02 Pulse 85 02/20/20 07:02 Resp 18 02/20/20 07:02 BP 163/80 02/20/20 07:02 Pulse Ox 96 02/20/20 07:02 02/19/20 02/20/20 02/20/20 22:59 06:59 14:59 Intake Total 1710 / 2390 240 / 2390 480 / 480 Output Total 450 / 1100 Balance 1710 / 1290 -210 / 1290 480 / 480 Physical Exam Narrative: EXAM NARRATIVE: The patient has minimal left lower quadrant tenderness on exam. Data : 02/20/20 04:43 02/20/20 04:43 A&P Assessment and plan (1) Perforated diverticulum of large intestine: Plans for discharge on IV antibiotics noted. Status: Acute (2) Anemia: The patient has a history of anemia, but says the last time she had have a transfusion was perhaps 6 months ago around the time she was being treated for her cervical cancer. I will leave any transfusions to the discretion of the hospitalist team. Status: Acute Attestations Medical Necessity Statement*: See admitting service's notation. Coding Level of Care Code Acute Locomotive Repairer Diesel for Asha Alanis Diagnoses Perforated diverticulum of large intestine K57.20 Anemia D64.9
[2020-02-20 11:53] VITALS: BP 160/77; PULSE 82; RESP 18; TEMP 36.9; O2SAT 98
[2020-02-20 11:58] LABS: Glucose Point of Care 157 mg/dL (70-110)
--- NOTE | 2020-02-20 14:07 | P.DS_ITS ---
Discharge Providers Date of Admission: 02/14/20 12:01 Date of Discharge: February 20, 2020 Attending Provider at Admission: Rk Mart MD Attending Provider at Discharge: Rochelle Paez MD Primary Care Provider: Chapin Keita MD Diagnoses at Discharge Discharge Diagnosis (1) Perforated diverticulum of large intestine: Status: Acute (2) Anemia: Status: Acute (3) Intra-abdominal abscess: Status: Acute (4) Left leg DVT: Status: Acute (5) CKD (chronic kidney disease) stage 2, GFR 60-89 ml/min: Status: Acute (6) Acute diverticulitis: Status: Acute (7) Cervical cancer: Status: Acute Reason for Visit Reason for Visit: ABDOMINAL PAIN Hospital Course Discharge Summary: 74-year-old lady with 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 Seen as an outpatient by Dr. Keita with her CT abdomen pelvis on 02/10 showing thickening of the sigmoid colon with associated inflammatory changes raising concern for sigmoid diverticulitis. No evidence of recurrent or metastatic neoplasm at that time. She was started on oral antibiotics with Cipro and Flagyl, however continued to have pain. Presented to the ER on February 13 due to worsening pain and lack of bowel movement for 3 days. Hospital course as below: # Acute diverticulitis with perforation and resulting abdominal abscess -CAT scan on February 13 showed perforated acute diverticulitis with an abscess measuring 2.1 x 1.6 cm. Underwent a repeat CAT scan on 02/16 due to noted increasing distention which showed no significant change in the left lower quadrant abscess. Was also noted to be a subcentimeter abscess in the wall of the sigmoid colon. -These are too small for CT-guided drainage. No current urgent indication for open surgical procedures. -appreciate surgical recommendations -Diarrhea is improving,1 episode per day, passing flatus, C. difficile PCR is negative -Currently on a liquid diet, try advancing to full liquid as tolerated by the patient, precluded by poor appetite. Abdominal distension and tenderness are improving. No vomiting. -Initially received ceftazidime vancomycin and Flagyl. Started on ertapenem 1 g IV daily on 02/18 in anticipation of discharge. -She is clinically slowly improving and has been planned for discharge on 2 weeks of IV ertapenem 1 g daily for home use with repeat CT in 1 week and then 2 weeks prior to stopping antibiotics. Offered placement at SNF, however patient declined stating she wishes to return home. States that her son and granddaughter would be able to help her. She has in-home services and visiting nurse service. -Serial abdominal exams appear to be stable -Picc line placed 02/18 #Acute on chronic anemia. -Per review of old oncology records, patient has developed some degree of pancytopenia after her chemoradiation. -Baseline hemoglobin not significantly changed from her baseline. FOBT is positive, in the past it has been attributed that rectal bleeding secondary to anal fissure. -She was started on Eliquis in January 2020 due to lower extremity DVT involving the SFV, peroneal and popliteal veins. Eliquis remained on hold initially during admission for anemia, FOBT positive and anticipation of any surgical procedures that may be needed. However now that patient is clinically stable, we have resumed Eliquis at a lower dose of 2.5 mg BID Blood transfusion with 2 units packed cells 02/18. HB to be monitored as outpatient by Dr. Downey's office #Left leg DVT. As above noted that patient developed DVT in December. Venous Doppler performed during this admission shows partial nonocclusive thrombi in the peroneal and popliteal veins. This appears to be an improvement over the last one. Intervention sales assoc service was consulted to assess for IVC filter placement given that Eliquis has been lowered. However, given that she has no proximal vein involvement at this present time, it was recommended to consider low-dose Eliquis versus aspirin. After discussion with the patient and her outpatient oncologist Dr. Downey, it has now been decided to resume Eliquis at 2.5mg BID as given her underlying malignancy she remains at a high risk of progression of this DVT/PE. Repeat Duplex examination in 7-10 days to assess for any progression. #Diabetes mellitus: Currently on insulin sliding scale. # Hypokalemia: Oral repletion as needed. # hypothryroidism: continue levothryroxine # Hold nitrofurantoin on discharge as long as remains on ertapenem Overall slowly improving, however remains chronically ill and deconditioned. Physical Exam Narrative: EXAM NARRATIVE: GEN: Awake, alert and oriented, no acute distress, frail CVS: S1S2 N RS: CTA B/L Abd: Soft, nt/nd , bs+ SENIOR INTERNATIONAL TAX MANAGER: no focal neuro deficits Discharge Data Data Completed and Pending: Completed Studies During Hospitalization Category Date Time Status CT abdomen pelvis w con* [id number] Rout ine Cat Scan 02/17/20 08:[address] abdomen pelvis w con* [id number] Urge nt Cat Scan 02/14/20 10:13 Completed XR chest 1V caro ble [id number] Stat Exams 02/18/20 14:05 [place] [id number] Routin e Ultrasound 02/16/20 15:20 Completed Pending at discharge Category Date Time Status Leukocyte Reduced RBC Routine Lab 02/19/20 14:05 Results Type and Screen R outine Lab 02/19/20 14:05 Results Labs from last 24 hours 02/20/20 02/20/20 02/20/20 11:50 07:46 04:43 WBC RBC Hgb Hct MCV MCH MCHC RDW Plt Count MPV Neut % (Auto) Lymph % (Auto) [place] % (Auto) Eos % (Auto) Baso % (Auto) Neut # (Auto) Lymph # (Auto) [place] # (Auto) Eos # (Auto) Baso # (Auto) Nucleated RBC % (a uto) Nucleated RBCs # Sodium 140 Potassium 3.6 Chloride 109 H Carbon Dioxide 22 Anion Gap 12.6 BUN 7 L Creatinine 1.0 H GFR Calculation Not Reportable Glucose 140 H POC Glucose 157 163 Calculated Osmolal ity 288 Calcium 9.0 Total Bilirubin 0.7 AST 9 ALT < 5 Alkaline Phosphata se 69 Total Protein 5.3 L Albumin 2.6 L Globulin 2.7 Vancomycin Trough Blood Type Rho(D) Type Antibody Screen Crossmatch 02/20/20 02/19/20 02/19/20 04:43 19:35 16:19 WBC 4.0 RBC 2.91 L Hgb 9.2 L Hct 29.2 L MCV 100.3 H MCH 31.6 MCHC 31.5 RDW 15.4 H Plt Count 126 L MPV 8.6 Neut % (Auto) 74.7 Lymph % (Auto) 13.6 [place] % (Auto) 9.3 Eos % (Auto) 0.8 Baso % (Auto) 0.3 Neut # (Auto) 2.96 Lymph # (Auto) 0.5 L [place] # (Auto) 0.4 Eos # (Auto) 0.0 Baso # (Auto) 0.0 Nucleated RBC % (a uto) 0 Nucleated RBCs # 0.0 Sodium Potassium Chloride Carbon Dioxide Anion Gap BUN Creatinine GFR Calculation Glucose POC Glucose 136 127 Calculated Osmolal ity Calcium Total Bilirubin AST ALT Alkaline Phosphata se Total Protein Albumin Globulin Vancomycin Trough Blood Type Rho(D) Type Antibody Screen Crossmatch 02/19/20 02/19/20 14:05 14:05 WBC RBC Hgb Hct MCV MCH MCHC RDW Plt Count MPV Neut % (Auto) Lymph % (Auto) [place] % (Auto) Eos % (Auto) Baso % (Auto) Neut # (Auto) Lymph # (Auto) [place] # (Auto) Eos # (Auto) Baso # (Auto) Nucleated RBC % (a uto) Nucleated RBCs # Sodium Potassium Chloride Carbon Dioxide Anion Gap BUN Creatinine GFR Calculation Glucose POC Glucose Calculated Osmolal ity Calcium Total Bilirubin AST ALT Alkaline Phosphata se Total Protein Albumin Globulin Vancomycin Trough 15.7 H Blood Type A Positive Rho(D) Type Positive Antibody Screen Negative Crossmatch See Detail Vitals: Last Vital Signs Temp 98.5 F 02/20/20 11:53 Pulse 82 02/20/20 11:53 Resp 18 02/20/20 11:53 BP 160/77 02/20/20 11:53 Pulse Ox 98 02/20/20 11:53 Discharge Plan Discharge Patient Disposition: Home Health Service Condition: Stable Prescriptions: New ertapenem 1 gram recon soln 1 gm IV DAILY 14 Days RF: 0 Continued dexamethasone 1 mg Tablet 1 mg PO DAILY RF: 0 Novolog Flexpen U-100 Insulin 100 unit/mL (3 mL) Insulin Pen See Rx Instructions .ROUTE .COMPLEX RF: 0 Levemir FlexTouch U-100 Insuln 100 unit/mL (3 mL) Insulin Pen 20 unit SUBCUT BEDTIME RF: 0 citalopram 40 mg tablet 40 mg PO DAILY RF: 0 alprazolam 0.5 mg tablet 0.5 mg PO BID PRN (Reason: Anxiety) RF: 0 hydrocodone-acetaminophen 7.5-325 mg tablet 1 tab PO Q6H PRN (Reason: Pain) RF: 0 levothyroxine 150 mcg tablet 150 mcg PO DAILY RF: 0 lorazepam 1 mg tablet 1 mg PO TID PRN (Reason: Nausea) RF: 0 metformin 500 mg tablet extended release 24 hr 1,000 mg PO DAILY RF: 0 rosuvastatin [Crestor] 40 mg tablet 40 mg PO BEDTIME RF: 0 nystatin 100,000 unit/mL Suspension 500,000 unit PO QID Qty: 60 RF: 0 Changed pantoprazole 20 mg tablet,delayed release (DR/EC) 40 mg PO BID PRN (Reason: stomach acid/heartburn) Qty: 0 RF: 0 Eliquis 5 mg Tablet 2.5 mg PO BID 30 Days Qty: 60 RF: 0 Discontinued Flagyl 500 mg Tablet 500 mg PO TID RF: 0 Cipro 500 mg Tablet 500 mg PO BID RF: 0 Macrobid 100 mg Capsule 100 mg PO BID RF: 0 Discharge Orders: Discharge Order (Routine); Ordered 02/20/20 Ordered By: Rochelle Paez Other Ambulatory Orders: CT abdomen pelvis w con* [id number] (Routine) Timeframe: 20200226 Facility: [facility] - Location: [facility] Ordered By: Rochelle Paez Complete Blood Count w/Auto (WEEKLY) Timeframe: 20200227 Location: Determined by Patient Ordered By: Rochelle Paez Complete Blood Count w/Auto (WEEKLY) Timeframe: 20200228 Location: Determined by Patient Ordered By: Rochelle Paez Comprehensive Metabolic Panel (WEEKLY) Timeframe: 20200227 Location: Determined by Patient Ordered By: Rochelle Paez Comprehensive Metabolic Panel (WEEKLY) Timeframe: 20200228 Location: Determined by Patient Ordered By: Rochel[place] [id number] (Routine) Timeframe: 1 Week Location: [facility] Ordered By: Rochelle Paez Referrals: [facility] [Outside] Kade Roberson MD [Physician] - 02/27/20 (hospital discharge follow up ) Rochelle Paez MD [Hospitalist] - 03/10/20 (call surgical scrub technician office for appointment. ) Gato Downey MD [Hospitalist] - Discharge Diet: Advance as tolerated and GI Soft Discharge Activity: Resume usual activity Activity Restrictions/Additional Instructions: follow up with Dr. Roberson after CT results in one week follow up in ID clinic on 03/10/20. 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
[2020-02-20] MEDS: ertapenem 1,000 MG in sodium chloride 0.9% (plus) 100 ML 200 MG IV (14:14)
[2020-02-20 15:30] VITALS: BP 154/78; PULSE 80; RESP 18; TEMP 37.2; O2SAT 97
[2020-02-20 17:22] VITALS: BP 154/78; PULSE 80; RESP 18; TEMP 37.2; O2SAT 97
== END 2020-02-20 16:45 | disposition home health service (06) | DRG 392 ==
LOC: ER 11:54 → MEDSURG 12:19
PROVIDERS: Admitting Provider Family Medicine; Emergency Provider Emergency Medicine; PCP Family Medicine; Visit Provider Student in an Organized Health Care Education/Training Program
DX: K57.20 Diverticulitis of large intestine with perforation and abscess without bleeding (principal); I82.5Z2 Chronic embolism and thrombosis of unspecified deep veins of left distal lower extremity; N18.2 Chronic kidney disease, stage 2 (mild); E11.22 Type 2 diabetes mellitus with diabetic chronic kidney disease; I12.9 Hypertensive chronic kidney disease with stage 1 through stage 4 chronic kidney disease, or unspecified chronic kidney disease; K21.9 Gastro-esophageal reflux disease without esophagitis; C53.9 Malignant neoplasm of cervix uteri, unspecified; F41.9 Anxiety disorder, unspecified; E03.9 Hypothyroidism, unspecified; D63.1 Anemia in chronic kidney disease; E87.6 Hypokalemia; Z92.3 Personal history of irradiation; Z79.84 Long term (current) use of oral hypoglycemic drugs; Z79.01 Long term (current) use of anticoagulants; E86.0 Dehydration; E78.5 Hyperlipidemia, unspecified; E66.01 Morbid (severe) obesity due to excess calories; Z68.32 Body mass index [BMI] 32.0-32.9, adult
CPT/HCPCS: 12345; 36415; 36416; 36430; 36569; 36592; 71045; 74177; 80053; 80202; 81001; 82274; 82607; 82728; 82962; 83036; 83540; 83550; 83690; 83735; 83880; 84100; 84443; 85025; 85045; 86850; 86900; 86920; 87493; 93971; 94664; 96365; 96366; 96372; 96375; 97165; 99214; 99283; J0713; J0744; J1335; J1644; J1815; J2270; J2405; J3370; J3480; J7050; J7799; P9016; Q9967; S0030

== ENCOUNTER 2020-02-28 10:00 | Outpatient (CLI) | payer MEDICARE, MEDICAID, SELFPAY ==
[2020-02-28] MEDS: alteplase 1 mg/mL SDV 2 mL 2 MG INTRACATH (10:45)
[2020-02-28 10:48] VITALS: BP 144/61; PULSE 76; RESP 18; TEMP 36.4; O2SAT 96
--- NOTE | 2020-02-28 11:05 | SUR.PREOP ---
Cath flow activase 2 mg given via Picc line and left in line for 15 minutes. Blood return noted in line after 15 minutes. Line flushed with NS 10 ml.
== END 2020-02-28 10:01 | disposition home or self-care (01) ==
LOC: OPS 10:01
PROVIDERS: PCP Family Medicine; Visit Provider Family Medicine
DX: I82.4Z2 Acute embolism and thrombosis of unspecified deep veins of left distal lower extremity (principal)
CPT/HCPCS: 36593; J2997

== ENCOUNTER 2020-03-04 13:36 | Outpatient (CLI) | payer MEDICARE, MEDICAID, SELFPAY ==
--- NOTE | 2020-03-06 14:45 | ONC FU_ITS ---
Dr. Downey Patient Follow-Up Note Patient: Sharon Sotelo Unit #: [id number]: 1945 Dicatated By: Gato Downey M.D.Date of Visit:Mar 04, 2020 Onc Med Follow-up/Prog Note Chief Complaint: Cervical cancer. 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 On 05/03/2019 she had presented to the emergency room with pain in the left lower quadrant/left flank area and difficulty voiding. Her CT abdomen/pelvis showed a soft tissue mass which was involving the left superior lateral aspect of the urinary bladder and was contiguous with the cervix. It measured at least 4 x 4.9 x 5.8 cm. There was associated ureterovesical junction obstruction and moderate left hydronephrosis. There was associated adenopathy including a left inferior pelvic lymph node measuring 1 x 1.5 cm, a left para-aortic lymph node measuring 1.4 cm, a common iliac lymph node measuring 1.1 cm, and bilateral external iliac lymph nodes measuring up to 2.1 x 4.2 cm on the right and 1 x 1.7 cm on the left. She was referred to Dr. Ybarra in [place]. On 06/04/2019 she underwent exam under anesthesia with cervical biopsy, cystoscopy with biopsy, and rigid proctoscopy to 15 cm. Her tumor appeared to be fixed to the left pelvic sidewall and there was noted to be right-sided parametrial disease. On the cystoscopy the tumor did appear to be involving the bladder. The cervical biopsy and the bladder biopsy both showed poorly differentiated squamous cell carcinoma. She was recommended to undergo chemoradiation. Her other medical illnesses include hypertension, type 2 diabetes, and hypothyroidism. She also has chronic anxiety. She is a non-smoker. INTERIM HISTORY: She began radiation concurrently with weekly cisplatin chemotherapy on 07/15/2019. She experienced no acute toxicity with her initial infusion of cisplatin. She was then able to continue her treatment weekly, completing her 6th infusion of cisplatin on 09/02/2019. She completed radiation on 09/03/2019 to a total dose of 5940 cGy. During her treatment she did require some growth factor support with Neupogen. She also required IV hydration on multiple occasions for nausea and poor oral intake. I had seen her for a follow-up visit on 09/18/2019. At that point she was really doing quite poorly, as she had gotten very weak and she was having significant anorexia/nausea, so that her oral intake was very poor. She was significantly pancytopenic with hemoglobin 6.4 g, white blood cell count 2000, and platelet count 66,000. She was transfused and she was given further IV hydration and supportive care measures. During subsequent follow-up there was further decline in the granulocyte count, nadiring at approximately 1000. She then began to show gradual improvement in her clinical status. However, during that time she had been to the radiation oncologist in [place] on 2 occasions, and on both she was declined for her brachytherapy. She eventually opted against treatment. On 12/21/2019 she was admitted to the hospital with complaints of chest pain in association with eating and rectal pain/bleeding. She had evidence of oral pharyngeal candidiasis and there was associated dehydration and acute renal injury. She also was significantly hyperglycemic. She had symptomatic improvement with IV hydration and IV fluconazole. Also was improvement in her renal function. She remained moderately anemic, but above transfusion threshold. The rectal bleeding was thought to be most likely due to anal fissure, and that improved with conservative management. Following discharge from the hospital, she did start Levemir 20 units daily at bedtime along with regular insulin per sliding scale. She has since then been tapering off dexamethasone. She had then seen Dr. Keita with pain in the left lower quadrant of her abdomen. Her CT abdomen/pelvis on 02/11/2020 showed wall thickening of the sigmoid colon with associated inflammatory change and fluid. There were diverticula noted, and it was felt that the appearance was most consistent with sigmoid colon diverticulitis. There was no evidence of recurrent or metastatic neoplasm. She began on empiric antibiotic coverage with ciprofloxacin and metronidazole. Despite that, her symptoms worsened. On 02/14/2020 she was admitted to the hospital with abdominal abscess in association with bowel perforation. She was given antibiotic coverage with ceftazidime, vancomycin, and metronidazole. She was significantly anemic, requiring PRBC transfusion. She was found to have positive stool FOB, and she was taken off apixaban. She improved clinically. On 02/20/2020 she was discharged home to continue outpatient antibiotic coverage with ertapenem 1 g IV daily. She restarted apixaban with the dosage reduced to 2.5 mg twice daily. She is seen for a follow-up visit. She is feeling better. She still has limited activity, but she is able to ambulate now with a walker. Her ECOG score is 2. She also is able to eat some, though her appetite still is not good. She has not had fever or night sweats. She has not had sore mouth or throat. She has no shortness of breath, cough, or chest pain. Her abdominal pain has completely resolved. Bowel and bladder function are okay. She has no significant joint or bone pain. She does not complain of headache or dizziness. She has no focal neurologic symptoms. She is having some anxiety. Medications: ALPRAZolam 1 (0.5 mg) Tablet Oral daily, Citalopram Hydrobromide 1 Tablet (of 40 mg) Oral daily, Eliquis 1 Tablet (of 2.5 mg) Oral b.i.d., Ertapenem Sodium 1 (1 g) Injection daily, HYDROcodone-Acetaminophen 1 (7.5-325 mg) Tablet Oral q 6 hours PRN, Levemir 20 Units (of 100 Units/mL) Subcutaneous at bedtime, Levothyroxine Sodium 1 (150 mcg) Tablet Oral daily, NovoLOG (100 Units/mL) Subcutaneous Take as Directed, Pantoprazole Sodium 1 Tablet (of 40 mg) Tablet, enteric coated Oral b.i.d., Rosuvastatin Calcium 1 Tablet (of 40 mg) Oral at bedtime Allergies: Penicillins Review of Systems: Constitutional - She is feeling better after recent hospitalization and her energy is improving. She is able to get up and around more. She is up frequently. Her appetite is good and weight is stable. No fever, night sweats, or hot flashes. ECOG score is 2, ENMT - No sinus congestion/drainage. No mouth sores. No sore throat or difficulty swallowing, Endocrine - She is monitoring her blood sugars at home frequently. They have improved after stopping the Dexamethasone. She is currently taking 20 units Levemir at night, Hematologic/Lymphatic - She bruises easily, Respiratory - No shortness of breath. No cough. No pleuritic pain or hemoptysis, Cardiovascular - No angina pain. No palpitations, Gastrointestinal - No nausea or vomiting. No heartburn or acid reflux. She was having loose stools, she reports that has improved. No constipation. No blood in the stool or black stools. She was recently admitted to [facility] for perforated diverticulum of large intestine. She is currently receiving ertapenem 1 gram IV at home. She denies any abdominal pain, Genitourinary (F) - No dysuria or hematuria. No urinary frequency. No urgency or incontinence, Musculoskeletal - No joint or bone pain, Integumentary - No skin complications, Neurologic - No headache or dizziness. No numbness or tingling. No other focal neurologic symptoms, Psychiatric - No anxiety or depression. No insomnia. Vital Signs: Performed on Mar 04, 2020 13:49 Height - 66.00 in Weight - 203.2 lbs (HIGH) BSA - 2.01 sq.m BMI - 32.80 (HIGH) Temperature - 97.0 F (LOW) Pulse - 65 /min Respiration - 22 /min BP - 146/70 mm(hg) (HIGH) O2 Sat - 98 % Pain - 0 Physical Examination: Constitutional - She still appears somewhat weak generally, Eyes - Sclerae nonicteric. Conjunctivae clear, ENMT - No lesions noted in the oral cavity, Hematologic/Lymphatic - No cervical, clavicular, or axillary adenopathy, Respiratory - Lungs sound clear, Cardiovascular - Heart rhythm is regular. There is a II/ systolic murmur. There is no gallop or rub noted, Abdomen - Mildly distended but soft. There is no abdominal tenderness. Liver and spleen are not enlarged. There is no abdominal mass or ascites noted. Bowel sounds are normal. There is no inguinal adenopathy, Extremities - Slight edema. She has extensive purpura on both arms, Neurologic - No focal neurologic deficits noted. Lab/Imaging: Test performed on Mar 02, 2020 13:45 Glucose 125 mg/dL BUN 9 mg/dL Creatinine 0.85 mg/dL Cr Clearance (Est) 84.74 mL/min Sodium 141 mmol/L Potassium 3.1 mmol/L Chloride 106 mmol/L CO2 23 mmol/L Calcium 9.0 mg/dL Protein, Total 5.6 g/dL Albumin 3.2 g/dL Globulin 2.4 g/dL Bilirubin, Total 1.4 mg/dL Alkaline Phosphatase 90 IU/L AST (SGOT) 68 IU/L ALT (SGPT) 53 IU/L WBC 3.4 10^9/L RBC 2.95 10^12/L HGB 9.0 g/dL HCT 27.6 % MCV 93.6 fl MCH 30.5 pg MCHC 32.6 g/dL RDW 13.8 % Platelet Count 156 10^9/L MPV 9.3 fL Neutrophils (Gran) 2387 10^9/L Lymphocytes 581 10^9/L Monocytes 391 10^9/L Eosinophils 31 10^9/L Basophils 10 10^9/L Manual Lymphocytes 17.1 % Manual Monocytes 11.5 % Manual Eosinophils 0.9 % Manual Basophils 0.3 % Impression: 1. 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 2. On 06/04/2019 she underwent exam under anesthesia with cervical biopsy, cystoscopy with biopsy of the bladder, and rigid proctoscopy to 15 cm. Her other medical illnesses include: 3. Hypertension. 4. Type 2 diabetes. 5. Hypothyroidism. 6. Chronic anxiety. She began radiation concurrently with weekly cisplatin chemotherapy on 07/15/2019. She had some nausea and fatigue with the initial chemotherapy treatment, but she was able to tolerate it with acceptable toxicity, and she continued her treatment weekly, completing her 6th infusion of cisplatin on 09/02/2019. She completed radiation on 09/03/2019 to a total dose of 5940 cGy. During her treatment she required growth factor support with Neupogen, and she also required frequent IV hydration. She had unusually severe toxicity from the treatment, as she then continued to have weakness and nausea/anorexia. She developed worsening pancytopenia, significant enough to require transfusion. Her restaging PET/CT on 10/26/2019 showed resolution of the primary cervical mass and interval resolution of bilateral pelvic and left retroperitoneal lymph nodes. There was improvement but residual activity in a right obturator index node. Overall, the findings were felt to be consistent with a partial response to therapy. During follow-up she did show gradual recovery. However, due to her treatment related toxicity she was not able to undergo brachytherapy. On 12/21/2019 she was admitted to the hospital with oral pharyngeal candidiasis in association with hyperglycemia. She had associated dehydration and acute renal injury. She also is having symptoms of rectal fissure. She had symptomatic improvement on treatment with fluconazole and with IV hydration. Following discharge her blood sugar control improved significantly on a combination of Levemir and regular insulin per sliding scale, and she began to gradually taper off dexamethasone. She had recently presented with new pain in the left lower quadrant of the abdomen. CT findings were consistent with sigmoid colon diverticulitis, for which she was started on antibiotic therapy. However, her condition continued to worsen and on 02/14/2020 she was admitted to the hospital with intra-abdominal abscess associated with perforated diverticulum. She improved on IV antibiotic therapy, but she did require PRBC transfusion. She also was found to have positive IFOB. Her apixaban was initially put on hold, but restarted at 2.5 mg twice daily at discharge on 02/20/2020. She has continued outpatient antibiotic therapy with ertapenem 1 g IV daily. She is showing clinical improvement, though she remains moderately anemic. Plan: She is scheduled for ID follow-up with Dr. Paez on 03/10/2020. Until then, her IV antibiotic coverage will be continued. She also was supposed to have follow-up CT abdomen/pelvis, and that will be scheduled now. I will tentatively plan a follow-up visit here in 1 month. Signed By: Gato Downey M.D. <<Signature on File>>
== END 2020-03-04 13:37 | disposition home or self-care (01) ==
PROVIDERS: PCP Family Medicine; Visit Provider Internal Medicine Medical Oncology
DX: C53.9 Malignant neoplasm of cervix uteri, unspecified (principal); F41.9 Anxiety disorder, unspecified; E78.5 Hyperlipidemia, unspecified; I10 Essential (primary) hypertension; E11.9 Type 2 diabetes mellitus without complications; Z79.2 Long term (current) use of antibiotics; Z92.3 Personal history of irradiation; Z92.21 Personal history of antineoplastic chemotherapy
CPT/HCPCS: 99214

== ENCOUNTER 2020-03-05 12:52 | Outpatient (CLI) | payer MEDICARE, MEDICAID, SELFPAY ==
--- NOTE | 2020-03-05 12:59 | CT_ITS ---
WS: [id number] CT ABDOMEN AND PELVIS WITH CONTRAST HISTORY: CERVICAL CANCER, ABSCESS TECHNIQUE: Imaging performed of the abdomen and pelvis with IV contrast. Single phase imaging of the abdomen. Coronal and sagittal reformats are submitted. All CT scans at [facility] use at least one of these dose optimization techniques: automated exposure control; mA and/or kV adjustment per patient size (includes targeted exams where dose is matched to clinical indication); or iterativ e reconstruction. IV CONTRAST: Visipaque 320; 95 mL IV. Oral contrast: Yes. DLP: 1529.48 mGy.cm COMPARISON: 02/17/2020 Lower thorax: Calcification along the mitral annular valve plane. Very tiny bilateral pleural effusio ns. Heart is normal size. No hiatal hernia. Liver/biliary system: Normal size with no intrahepatic dilatation. Gallbladder: Normally distended gallbladder with stones. No adjacent inflammation. Pancreas: Normal. Spleen: Granulomatous. Normal size. Adrenal glands: Normal. Right kidney: Mild perinephric stranding. No obstruction. Left kidney: Mild perinephric stranding with no obstruction. Aorta: Mild atherosclerosis with no aneurysm. Lymphadenopathy: None. Free fluid: None. GI tract: Extensive diverticular disease in the colon. Recently described diverticular abscess latera l to the sigmoid has slightly decreased in size. There is less inflammation in the abscess measures 1 7 x 13 mm. There is a smaller thinner wall surrounding the abscess. There is less infiltration of the soft tissues. No free air. Abdominal wall: Fat-containing umbilical hernia. Pelvis: Anteverted uterus. Mild distention of the endometrium to 11 mm May be due to component of cer vical stenosis. Patient does have a history of prior cervical cancer. 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 CT/CT abdomen pelvis w con* [id number] IMPRESSION: 1. Persistent but significant improvement in the diverticular abscess lateral to the sigmoid. Abscess cavity now measures 17 x 13 mm as compared to 23 x 16 m m. Less pericolonic inflammation. 2. Cholelithiasis. 3. Fluid distended endometrium. May be due to cervical stenosis.
[2020-03-05] MEDS: iodixanol 320 mg/mL 100mL Btl IV (14:49)
[2020-03-05] MEDS: iohexol 300 mg/mL 50 mL Btl IV (14:49)
== END 2020-03-05 12:53 | disposition home or self-care (01) ==
LOC: RAD 12:56
PROVIDERS: PCP Family Medicine; Visit Provider Internal Medicine Medical Oncology
DX: C53.9 Malignant neoplasm of cervix uteri, unspecified (principal); K80.20 Calculus of gallbladder without cholecystitis without obstruction
CPT/HCPCS: 74177

== ENCOUNTER 2020-03-16 13:12 | Outpatient (CLI) | payer MEDICARE, MEDICAID, SELFPAY ==
[2020-03-16 13:53] LABS: Basophils % 0.3 %; Eosinophils # 0.1 10^3/uL (0.0-0.8); Eosinophils % 1.7 %; Hematocrit 27.1 % (37.0-47.0); Hemoglobin 8.5 g/dL (11.5-15.3); Lymphocytes # 0.6 10^3/uL (0.8-4.8); Lymphocytes % 20.1 %; Mean Corpuscular HGB Conc 31.4 g/dL (30.0-36.0); Mean Corpuscular Hemoglobin 30.2 pg (28.0-34.0); Mean Corpuscular Volume 96.4 fL (81-99); Mean Platelet Volume 9.7 fL (7.4-10.4); Monocytes # 0.4 10^3/uL (0.2-0.9); Monocytes % 12.4 %; Neutrophils # 1.95 10^3/uL (1.8-7.7); Neutrophils % 65.2 %; Nucleated Red Blood Cells % 0 %; Platelet Count 159 10^3/cmm (130-400); Red Blood Count 2.81 10^6/uL (4.1-5.3); Red Cell Distribution Width 14.7 % (12.1-15.1)
== END 2020-03-16 13:13 | disposition home or self-care (01) ==
LOC: LAB 13:16
PROVIDERS: PCP Family Medicine; Visit Provider Internal Medicine Medical Oncology
DX: C53.9 Malignant neoplasm of cervix uteri, unspecified (principal)
CPT/HCPCS: 85025

== ENCOUNTER 2020-03-19 11:27 | Outpatient (CLI) | payer MEDICARE, MEDICAID, SELFPAY ==
--- NOTE | 2020-03-19 13:00 | CT_ITS ---
WS: [id number] CT ABDOMEN PELVIS TECHNIQUE: Contrast-enhanced CT of the abdomen and pelvis with coronal and sagittal reformatted image s. CLINICAL INFORMATION: follow up abdominal abscess COMPARISON: CT March 05, 2020 and 02/17 2020 DLP: 1224.[address] scans at [facility] use at least one of these dose optimization techniques: automat ed exposure control; mA and/or kV adjustment per patient size (includes targeted exams where dose is matched to clinical indication); or iterative reconstruction. FINDINGS: Mild diffuse fatty infiltration of the liver. Dense cholelithiasis unchanged from previous. No gallbl adder wall thickening. Previously described small sigmoid colon perforated diverticuli with a small amount of air and fluid has decreased in size from the prior examination today measuring 8.9 x 5.7 mm. Small amount of fluid along the left adnexa. This is improved from previous. No evidence of drainable abscess or fluid baltazar ection. Heterogeneous uterine enhancement with history of cervical stenosis. Endometrial thickening measuring 11 mm. Recommend further evaluation with ultrasound to exclude neoplasia. This appears stable from p revious. Fatty atrophy of the pancreas. Normal GE junction. Normal caliber abdominal aorta. Aortic calcificati on. Adrenal glands are normal. Normal renal parenchymal enhancement. No hydronephrosis in either kidn ey. Tiny fat-containing umbilical hernia. No abdominal or pelvic lymphadenopathy. No inguinal lymphad enopathy. Stable grade 1 anterolisthesis L5 on S1 bilateral pars defects. CT/CT abdomen pelvis w con* [id number] IMPRESSION: 1. Small diverticular abscess has decreased in size from previous today measur ing 2.9 x 5.7 mm. No drainable fluid collections. 2. Heterogeneous uterine enhancement with history of cervical stenosis. Endome trial thickening measuring 11 mm. Recommend further evaluation with ultrasound to exclude neoplasia. This appears stable from previous. 3. Diffuse fatty infiltration liver. 4. Dense cholelithiasis. No evidence of acute cholecystitis.
[2020-03-19] MEDS: iohexol 300 mg/mL 100 mL Btl IV (13:20)
[2020-03-19] MEDS: iohexol 300 mg/mL 50 mL Btl PO (13:20)
== END 2020-03-19 11:28 | disposition home or self-care (01) ==
LOC: RADWPI 11:35
PROVIDERS: Family Provider Family Medicine; PCP Family Medicine; Visit Provider Student in an Organized Health Care Education/Training Program
DX: K57.20 Diverticulitis of large intestine with perforation and abscess without bleeding (principal); K76.0 Fatty (change of) liver, not elsewhere classified; K80.20 Calculus of gallbladder without cholecystitis without obstruction
CPT/HCPCS: 74177; Q9967

== ENCOUNTER 2020-04-04 10:35 | Emergency (ER) | payer MEDICARE, MEDICAID, SELFPAY ==
[2020-04-04 10:46] VITALS: BP 120/74; PULSE 63; RESP 18; TEMP 36.1; O2SAT 98; BMI 30.7
[2020-04-04 10:50] VITALS: RESP 18
--- NOTE | 2020-04-04 11:14 | XRR_ITS ---
PROCEDURE INFORMATION: Exam: XR Right Hip with Pelvis when Performed Exam date and time: 04/04/2020 11:58 AM Age: 74 years old Clinical indication: Hip pain; Right hip TECHNIQUE: Imaging protocol: XR Right hip with pelvis when performed. Views: 2 or 3 views. COMPARISON: CT abdomen pelvis w con* [id number] 03/19/2020 1:10 PM FINDINGS: Bones/joints: Radiolucencies in the proximal femoral shaft with some endosteal scalloping and possibly involvement of the lateral cortex and medullary canal most consistent with metastatic disease versus multiple myeloma versus osteomyelitis versus primary bones/bone marrow tumor. The sagittal length of involvement in the proximal femoral shaft is approximately 7 cm. Soft tissues: Unremarkable. Vasculature: One or more calcified pelvic phleboliths. XR/XR hip RT 2-3V wo/w pel* [id number] IMPRESSION: Radiolucencies in the proximal femoral shaft with some endosteal scalloping and possibly involvement of the lateral cortex and medullary canal most consistent with metastatic disease versus multiple myeloma versus osteomyelitis versus primary bone/bone marrow tumor. The sagittal length of involvement in the proximal femoral shaft is approximately 7 cm.
--- NOTE | 2020-04-04 11:25 | ED_ITS ---
HPI - Extremity Problem General: Chief complaint: Extremity Injury, Lower Stated complaint: Right leg pain Time Seen by Provider: 04/04/20 10:36 Source: patient Mode of arrival: ambulatory Limitations: no limitations History of Present Illness: HPI Narrative: Karo 74-year-old female states she been having right hip pain over the last 5 to 7 days. She states that it is sharp in nature and radiates down her posterior thigh. She does have a history of sciatica in the past and this is similar. She denies any abdominal pain. She denies any worsening improving factors. States pain is currently a 4 out of 10. Associated symptoms: Deny chest pain, fever(s) or rash Review of Systems Const: Denies: fever(s), chills, body aches or change in appetite Eyes: Denies: blurry vision or eye discomfort ENMT: Denies: throat pain or dental pain Card: Denies: chest pain Resp: Denies: dyspnea GI: Denies: abdominal pain, nausea, vomiting or diarrhea : Reports: hematuria Musc: Denies: neck pain or back pain Skin/Breast: Denies: rash Neuro: Denies: headache(s) Psych: Denies: depression Willie/Lymph: Denies: easy bruising All/Imm: Denies: urticaria PFSH ED PFSH: Medical History (Updated 04/04/20 @ 12:10 by Haroon Martin MD) Anxiety -anxiolytics PRN Cervical cancer, FIGO stage 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 Ybarra and Dr. Downey -has received Cisplatin chemotherapy with noted toxicity including nausea, anorexia, worsening pancytopenia requiring transfusion -pending restaging PET/CT to determine next steps in management -on oral steroids Cholelithiasis Chronic anemia -chronic normocytic anemia -baseline Hg is around 10 -continue to monitor H/H; drop likely dilutional CKD (chronic kidney disease) stage 2, GFR 60-89 ml/min Diabetes mellitus -A1c-6.6 (09/2019) -Accuchecks, ISS, hypoglycemia precautions -hyperglycemia with steroids -consistent carb diet Diverticulitis of large intestine with perforation and abscess without bleeding Gastroesophageal reflux disease -PPI IV Hypertension -normotensive, continue to monitor vital signs -continue to hold oral antihypertensives due to dehydration, renal impairment (on ACEi-HCTZ combination); can resume on d/c Hypothyroidism -on levothyroxine Morbid obesity -BMI-34 kg/m2 Oropharyngeal candidiasis -apparent oral lesions on examination; ongoing odynophagia, dysphagia; symptoms resolved -opportunistic infection in immunocompromised patient -loaded with fluconazole 400 mg x 1, now on 200 mg once daily; due to improvement will switch to PO, plan to treat x 7 days -off IVF hydration; improved oral intake -tolerating GI soft diet -nystatin swish and swallow, magic mouthwash -pain control as needed -appreciate ST evaluation; cleared for regular diet/liquids Rectal fissure -on exam with some intermittent bleeding; no more so far -continue to monitor H/H; drop likely dilutional Surgical History H/O pelvic surgery Cervical biopsy, cystoscopy with biopsy, rigid proctoscopy to 15 cm ([place]) Family History Mother CAD (coronary artery disease) Father Aneurysm brain Sister Cancer breast cancer Family/Other Cancer breast cancer in niece Social History Smoking and tobacco status: never smoked Alcohol intake: never Household members: children Housing: House Physical Exam Const: COMMON NORMALS: no acute distress, patient oriented x3 and healthy a ppearing HENMT: COMMON NORMALS: normocephalic and atraumatic HEAD & SCALP: normocephalic and atraumatic Eye: COMMON NORMALS: Equal, round and reactive pupils present and EOMs intact bilaterally PUPIL: Yes Equal, round and reactive pupils present Neck/C-Spine: COMMON NORMALS: full ROM and supple Chest: COMMONS NORMALS: normal inspection of the chest and normal palpation of entire chest wall Resp: COMMON NORMALS: normal respiratory effort, No retractions, No use of accessory muscles and clear to auscultation bilaterally AUSCULTATION: clear to auscultation bilaterally Cardio: COMMON NORMALS: regular rate, regular rhythm and No murmurs present (Cardio) RATE: regular rate RHYTHM: regular rhythm GI: COMMON NORMALS: Normal to inspection, nondistended, normoactive bowel sounds present, Soft to palpation, non-tender and no masses PALPATION: Yes Soft to palpation Extremity: COMMON NORMALS: normal to inspection and full ROM Neuro: COMMON NORMALS: patient oriented x3, moves all extremities and no focal motor deficits Psych: COMMON NORMALS: mental status grossly normal, Normal thought process present and cooperative THOUGHT PROCESS: Normal thought process present Skin: COMMON NORMALS: no rashes or lesions noted and no wounds GENERAL SKIN EXAM: no rashes or lesions noted Course Vital Signs: Vital signs: Vital Signs Temperature 97.0 F L 04/04/20 10:46 Pulse Rate 63 04/04/20 10:46 Respiratory Rate 18 04/04/20 12:21 Blood Pressure 120/74 04/04/20 10:46 Pulse Oximetry 98 04/04/20 10:46 MDM - Extremity (Nontraumatic) MDM Narrative: Medical decision making narrative: Patient presents with right low back pain with sciatica. Her abdominal exam is benign and she has no signs of AAA. Patient given morphine here along with Decadron. Patient is stable for discharge will place on a muscle exit. She is to follow-up with PCP in 2 to 4 days return if worsening. She understands agrees to plan. Imaging Data^: Xray Ortho: Attestation: I personally reviewed and interpreted this imaging study as follows: My impression: Right hip shows no abnormalities Discharge Plan Discharge Patient Disposition: Home Clinical Impression: Low back pain Qualifiers: Chronicity: acute Back pain laterality: right Sciatica presence: with sciatica Sciatica laterality: sciatica of right side Qualified Code(s): M54.41 - Lumbago with sciatica, right side Condition: Stable Prescriptions: New Robaxin-750 750 mg tablet 750 mg PO Q6H Qty: 30 RF: 0 Percocet 5-325 mg tablet 1 tab PO Q6H PRN (Reason: pain) Qty: 14 RF: 0 No Action ertapenem 1 gram recon soln 1 gm IV Q24H 14 Days Qty: 14 RF: 0 ciprofloxacin HCl 500 mg tablet 500 mg PO BID 10 Days Qty: 20 RF: 0 metronidazole [Flagyl] 500 mg tablet 500 mg PO BID 10 Days Qty: 20 RF: 0 dexamethasone 1 mg Tablet 1 mg PO DAILY RF: 0 Novolog Flexpen U-100 Insulin 100 unit/mL (3 mL) Insulin Pen See Rx Instructions .ROUTE .COMPLEX RF: 0 Levemir FlexTouch U-100 Insuln 100 unit/mL (3 mL) Insulin Pen 20 unit SUBCUT BEDTIME RF: 0 pantoprazole 20 mg tablet,delayed release (DR/EC) 40 mg PO BID PRN (Reason: stomach acid/heartburn) Qty: 0 RF: 0 Eliquis 5 mg Tablet 2.5 mg PO BID 30 Days Qty: 60 RF: 0 citalopram 40 mg tablet 40 mg PO DAILY RF: 0 alprazolam 0.5 mg tablet 0.5 mg PO BID PRN (Reason: Anxiety) RF: 0 hydrocodone-acetaminophen 7.5-325 mg tablet 1 tab PO Q6H PRN (Reason: Pain) RF: 0 levothyroxine 150 mcg tablet 150 mcg PO DAILY RF: 0 lorazepam 1 mg tablet 1 mg PO TID PRN (Reason: Nausea) RF: 0 metformin 500 mg tablet extended release 24 hr 1,000 mg PO DAILY RF: 0 rosuvastatin [Crestor] 40 mg tablet 40 mg PO BEDTIME RF: 0 nystatin 100,000 unit/mL Suspension 500,000 unit PO QID Qty: 60 RF: 0 Discharge Orders: Discharge Order (Routine); Ordered 04/04/20 Ordered By: Haroon Martin Referrals: Chapin Keita MD [Primary Care Provider] - 1-3 days Discharge Diet: Advance as tolerated Discharge Activity: Resume usual activity Patient Instructions: Back Pain (ED) Discharge Date/Time: 04/04/20 12:22 Coding Level of Care Code 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
[2020-04-04] MEDS: dexamethasone 10 mg/mL INJ IM (11:27)
[2020-04-04] MEDS: morphine 4 mg/mL SDV 1 mL IM (11:27)
[2020-04-04] MEDS: oxyCODONE-APAP 5-325 mg Tablet 1 TAB PO (12:20)
[2020-04-04 12:21] VITALS: RESP 18
== END 2020-04-04 12:22 | disposition home or self-care (01) ==
PROVIDERS: Emergency Provider Emergency Medicine; Family Provider Family Medicine; PCP Family Medicine
DX: M54.41 Lumbago with sciatica, right side (principal); Z79.01 Long term (current) use of anticoagulants; Z79.4 Long term (current) use of insulin; Z85.41 Personal history of malignant neoplasm of cervix uteri; I12.9 Hypertensive chronic kidney disease with stage 1 through stage 4 chronic kidney disease, or unspecified chronic kidney disease; E11.22 Type 2 diabetes mellitus with diabetic chronic kidney disease; N18.2 Chronic kidney disease, stage 2 (mild)
CPT/HCPCS: 12345; 73502; 96372; 99281; 99283; J1100; J2270

== ENCOUNTER 2020-04-06 12:08 | Outpatient (CLI) | payer MEDICARE, MEDICAID, SELFPAY ==
--- NOTE | 2020-04-06 12:22 | CT_ITS ---
WS: [id number] CT of the lumbar spine, additional two-dimensional coronal and sagittal imaging was obtained. 04/06/20 20 Clinical Data: RIGHT FOOT DROP, RT S1 RADICULOPATHY Comparison: Lumbar spine x-ray, 04/06/2020. DLP: 1610.[address] scans at [facility] use at least one of these dose optimization techniques: automat ed exposure control; mA and/or kV adjustment per patient size (includes targeted exams where dose is matched to clinical indication); or iterative reconstruction. Findings: There is osteoporosis. There is degenerative disc disease at L5-S1 with a 0.9 cm subluxatio n of L5 on S1. No compression fractures are seen. The transverse processes and SI joints are normal. Osteoarthritis of all lumbar vertebral bodies with spurring is seen. There is calcification of the wa ll of the abdominal aorta but no aneurysm. Spinous processes are in good alignment. T12-L1: Negative L1-L2: There is mild disc bulging with facet joint arthritis causing mild canal stenosis. L2-L3: There is moderate disc bulging with facet joint arthritis causing canal and foraminal stenosis . L3-L4: There is disc bulging with facet joint arthritis causing canal and foraminal stenosis. L4-L5: There is a broad-based disc bulge causing mild canal stenosis. Subluxation causing mild canal stenosis but no foraminal stenosis. L5-S1: There is a subluxation of L5 on S1 causing mild canal stenosis. CT/CT lumbar spine wo con* [id number] Impression: 1. Degenerative disc narrowing at L5-S1. 2. Osteoarthritis of all the lumbar vertebral bodies. 3. Osteoporosis. 4. Subluxation of 0.9 cm of L5 on S1. 5. Modest disc bulging and facet joint arthritis causing canal and foraminal st enosis at multiple levels.
== END 2020-04-06 12:09 | disposition home or self-care (01) ==
LOC: RADWPI 12:14
PROVIDERS: Family Provider Family Medicine; PCP Family Medicine; Visit Provider Family Medicine
DX: M21.371 Foot drop, right foot (principal); M54.18 Radiculopathy, sacral and sacrococcygeal region; M47.816 Spondylosis without myelopathy or radiculopathy, lumbar region; M81.0 Age-related osteoporosis without current pathological fracture; M51.26 Other intervertebral disc displacement, lumbar region
CPT/HCPCS: 72131

== ENCOUNTER 2020-04-12 12:31 | Emergency (ER) | payer MEDICARE, MEDICAID, SELFPAY ==
[2020-04-12 12:47] VITALS: BP 144/73; PULSE 94; RESP 18; TEMP 36.9; O2SAT 99; BMI 31.1
--- NOTE | 2020-04-12 13:13 | ED_ITS ---
HPI - Extremity Problem General: Chief complaint: Extremity Problem,Nontraumatic Stated complaint: PAIN IN RLE Time Seen by Provider: 04/12/20 13:04 History of Present Illness: HPI Narrative: Patient comes in complain about the sciatica going down the right leg wanting pain medicine for this is going to [facility] now has been put on hydrocodone and Neurontin she said just not helping enough has pain clinic assessment appointment on 22 says her sleep at night because it hurts MD Complaint: extremity pain Onset (ago): month(s) Pain Consistency: constant Location: right Quality: aching Radiation: distal Relieving factors: medication Exacerbating factors: range of motion and weight bearing Associated symptoms: Reports no associated symptoms; Deny chest pain, fever(s) or rash Review of Systems Const: Denies: fever(s), chills or body aches Eyes: Denies: change in vision or blurry vision ENMT: Denies: throat pain or nasal congestion Card: Denies: chest pain or dyspnea on exertion Resp: Denies: dyspnea, productive cough or non-productive cough GI: Denies: abdominal pain, nausea or vomiting Musc: Reports: back pain; Denies: extremity pain Skin/Breast: Denies: rash Neuro: Denies: headache(s) Psych: Denies: anxiety or depression Willie/Lymph: Denies: easy bruising PFSH ED PFSH: Medical History (Updated 04/12/20 @ 13:12 by JOSLYN Leon) Anxiety -anxiolytics PRN Cervical cancer, FIGO stage 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 Ybarra and Dr. Downey -has received Cisplatin chemotherapy with noted toxicity including nausea, anorexia, worsening pancytopenia requiring transfusion -pending restaging PET/CT to determine next steps in management -on oral steroids Cholelithiasis Chronic anemia -chronic normocytic anemia -baseline Hg is around 10 -continue to monitor H/H; drop likely dilutional CKD (chronic kidney disease) stage 2, GFR 60-89 ml/min Diabetes mellitus -A1c-6.6 (09/2019) -Accuchecks, ISS, hypoglycemia precautions -hyperglycemia with steroids -consistent carb diet Diverticulitis of large intestine with perforation and abscess without bleeding Gastroesophageal reflux disease -PPI IV Hypertension -normotensive, continue to monitor vital signs -continue to hold oral antihypertensives due to dehydration, renal impairment (on ACEi-HCTZ combination); can resume on d/c Hypothyroidism -on levothyroxine Morbid obesity -BMI-34 kg/m2 Oropharyngeal candidiasis -apparent oral lesions on examination; ongoing odynophagia, dysphagia; symp toms resolved -opportunistic infection in immunocompromised patient -loaded with fluconazole 400 mg x 1, now on 200 mg once daily; due to improvement will switch to PO, plan to treat x 7 days -off IVF hydration; improved oral intake -tolerating GI soft diet -nystatin swish and swallow, magic mouthwash -pain control as needed -appreciate ST evaluation; cleared for regular diet/liquids Rectal fissure -on exam with some intermittent bleeding; no more so far -continue to monitor H/H; drop likely dilutional Surgical History H/O pelvic surgery Cervical biopsy, cystoscopy with biopsy, rigid proctoscopy to 15 cm ([place]) Family History Mother CAD (coronary artery disease) Father Aneurysm brain Sister Cancer breast cancer Family/Other Cancer breast cancer in niece Social History Smoking and tobacco status: never smoked Alcohol intake: never Household members: children Housing: House Physical Exam Const: COMMON NORMALS: no acute distress, average body habitus and patient oriented x3 HENMT: COMMON NORMALS: normocephalic HEAD & SCALP: normal to inspection and normocephalic FACE & SINUS: normal facial exam Eye: COMMON NORMALS: conjunctivae normal GENERAL EYE: appearance normal, both eyes and all related structures CONJUNCTIVA: Yes conjunctivae normal Neck/C-Spine: COMMON NORMALS: no JVD Chest: COMMONS NORMALS: normal inspection of the chest Resp: COMMON NORMALS: normal respiratory effort Cardio: COMMON NORMALS: no JVD GI: COMMON NORMALS: Normal to inspection, nondistended, normoactive bowel sounds present Back/Pelvis: GENERAL BACK: Yes other (Patient has static pain long static nerve root radiating from hip down to the lower leg) Extremity: COMMON NORMALS: normal to inspection and full ROM Neuro: COMMON NORMALS: patient oriented x3 Course Vital Signs: Vital signs: Vital Signs Temperature 98.4 F 04/12/20 12:47 Pulse Rate 94 04/12/20 12:47 Respiratory Rate 18 04/12/20 12:47 Blood Pressure 144/73 04/12/20 12:47 Pulse Oximetry 99 04/12/20 12:47 Discharge Plan Discharge Patient Disposition: Home Clinical Impression: Sciatica Qualifiers: Laterality: right Qualified Code(s): M54.31 - Sciatica, right side Condition: Stable Prescriptions: New Celebrex 200 mg capsule 200 mg PO BID Qty: 30 RF: 0 No Action ertapenem 1 gram recon soln 1 gm IV Q24H 14 Days Qty: 14 RF: 0 ciprofloxacin HCl 500 mg tablet 500 mg PO BID 10 Days Qty: 20 RF: 0 metronidazole [Flagyl] 500 mg tablet 500 mg PO BID 10 Days Qty: 20 RF: 0 dexamethasone 1 mg Tablet 1 mg PO DAILY RF: 0 Novolog Flexpen U-100 Insulin 100 unit/mL (3 mL) Insulin Pen See Rx Instructions .ROUTE .COMPLEX RF: 0 Levemir FlexTouch U-100 Insuln 100 unit/mL (3 mL) Insulin Pen 20 unit SUBCUT BEDTIME RF: 0 pantoprazole 20 mg tablet,delayed release (DR/EC) 40 mg PO BID PRN (Reason: stomach acid/heartburn) Qty: 0 RF: 0 Eliquis 5 mg Tablet 2.5 mg PO BID 30 Days Qty: 60 RF: 0 Robaxin-750 750 mg tablet 750 mg PO Q6H Qty: 30 RF: 0 Percocet 5-325 mg tablet 1 tab PO Q6H PRN (Reason: pain) Qty: 14 RF: 0 citalopram 40 mg tablet 40 mg PO DAILY RF: 0 alprazolam 0.5 mg tablet 0.5 mg PO BID PRN (Reason: Anxiety) RF: 0 hydrocodone-acetaminophen 7.5-325 mg tablet 1 tab PO Q6H PRN (Reason: Pain) RF: 0 levothyroxine 150 mcg tablet 150 mcg PO DAILY RF: 0 lorazepam 1 mg tablet 1 mg PO TID PRN (Reason: Nausea) RF: 0 metformin 500 mg tablet extended release 24 hr 1,000 mg PO DAILY RF: 0 rosuvastatin [Crestor] 40 mg tablet 40 mg PO BEDTIME RF: 0 nystatin 100,000 unit/mL Suspension 500,000 unit PO QID Qty: 60 RF: 0 Discharge Orders: Discharge Order (Routine); Ordered 04/12/20 Ordered By: Sathish Betancourt Referrals: Chapin Keita MD [Primary Care Provider] - Discharge Diet: Usual diet Discharge Activity: Increase activity as tolerated Patient Instructions: Lumbar Radiculopathy (ED) Activity Restrictions/Additional Instructions: Follow-up with medical provider as directed. Take medications as prescribed. Return to the ER or your medical provider if condition worsens. Please read and understand discharge instructions. If any questions ask please. 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
[2020-04-12] MEDS: ketorolac 30 mg/mL INJ IM (13:14)
== END 2020-04-12 14:10 | disposition home or self-care (01) ==
PROVIDERS: Emergency Provider Nurse Practitioner Family; Family Provider Family Medicine; PCP Family Medicine
DX: M54.31 Sciatica, right side (principal); Z79.4 Long term (current) use of insulin; Z79.01 Long term (current) use of anticoagulants; Z85.41 Personal history of malignant neoplasm of cervix uteri; I12.9 Hypertensive chronic kidney disease with stage 1 through stage 4 chronic kidney disease, or unspecified chronic kidney disease; N18.2 Chronic kidney disease, stage 2 (mild); E11.22 Type 2 diabetes mellitus with diabetic chronic kidney disease
CPT/HCPCS: 12345; 96372; 99282; J1885

== ENCOUNTER 2020-04-21 11:09 | Emergency (ER) | payer MEDICARE, MEDICAID, SELFPAY ==
[2020-04-21] VITALS (8 sets, daily range): BP systolic 159–189; BP diastolic 65–117; PULSE 101–120; RESP 18–24; TEMP 36.9; O2SAT 95–99
--- NOTE | 2020-04-21 11:38 | ECG_ITS ---
[facility] Test Date: 2020-04-21 Pat Name: Sharon Sotelo Department: Room: Gender: Female Negative Spotter: : 1945 Requested By: Lucy Cooper Order Number: [id number] Federico MD: Temitope Cantrell M.D. Measurements Intervals Energy Rate: 115 P: 73 [place]: 177 QRS: 101 QRSD: 101 T: -12 QT: 336 QTc: 465 Interpretive Statements SINUS TACHYCARDIA RIGHT AXIS DEVIATION [QRS AXIS > 100] MODERATE T-WAVE ABNORMALITY, CONSIDER INFERIOR ISCHEMIA Compared to ECG 12/21/2019 19:49:47 Right-axis deviation now present T-wave abnormality now present Possible ischemia now present Electronically Signed On 04-21-2020 16:26:38 CDT by Temitope Cantrell M.D. [email or web address]
[2020-04-21] MEDS: ondansetron 2 mg/ML SDV 2 mL 4 MG IVP (12:31)
[2020-04-21] MEDS: morphine 4 mg/mL SDV 1 mL IVP (12:35)
--- NOTE | 2020-04-21 12:42 | W.ED.EXTPRO ---
HPI - Extremity Problem General: Chief complaint: Extremity Problem,Nontraumatic Stated complaint: severe pain in right leg Time Seen by Provider: 04/21/20 11:32 History of Present Illness: HPI Narrative: This patient is a 74-year-old female who presents with right leg pain. Apparently this been going on for some time. The patient is a fairly vague historian. She cannot tell me when the pain started, what makes it better or worse, what test she has had for it. She cannot really detail which parts of her leg and foot are affected by it. She cannot really tell me if she has had weakness with it. She does deny any bladder or bowel symptoms. On review of her chart she has been seen a few times for this and had a CT of her lumbar spine as well. She does have a history of cervical cancer and was concerned about spread to the bones. CT scan did not show bony mets but does show some diffuse areas of disc bulging, osteoarthritis and a 0.9 cm subluxation of L5 on S1. She is unsure if anyone has contacted her about the results of the CT yet. She has been diagnosed with sciatica and has hydrocodone at home. She said it does not help at all. She says when she was here before she got morphine and a steroid shot and those did help. Complaint: extremity pain Onset (ago): unknown Pain Consistency: constant Location: right Quality: sharp Relieving factors: nothing Exacerbating factors: nothing Associated symptoms: Reports no associated symptoms; Deny chest pain or fever(s) Context: history of DVT Review of Systems General: Reports: Other (Reliability of review of systems is questionable) Const: Denies: fever(s) Card: Denies: chest pain or dyspnea on exertion Resp: Denies: dyspnea GI: Denies: abdominal pain, diarrhea, constipation or fecal incontinence : Denies: difficulty voiding, urinary frequency, urinary urgency or urinary hesitancy Musc: Reports: extremity pain Neuro: Denies: numbness in extremities or weakness in extremities PFSH ED PFSH: Medical History Anxiety -anxiolytics PRN Cervical cancer, FIGO stage 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 Ybarra and Dr. Downey -has received Cisplatin chemotherapy with noted toxicity including nausea, anorexia, worsening pancytopenia requiring transfusion -pending restaging PET/CT to determine next steps in management -on oral steroids Cholelithiasis Chronic anemia -chronic normocytic anemia -baseline Hg is around 10 -continue to monitor H/H; drop likely dilutional CKD (chronic kidney disease) stage 2, GFR 60-89 ml/min Diabetes mellitus -A1c-6.6 (09/2019) -Accuchecks, ISS, hypoglycemia precautions -hyperglycemia with steroids -consistent carb diet Diverticulitis of large intestine with perforation and abscess without bleeding Gastroesophageal reflux disease -PPI IV Hypertension -normotensive, continue to monitor vital signs -continue to hold oral antihypertensives due to dehydration, renal impairment (on ACEi-HCTZ combination); can resume on d/c Hypothyroidism -on levothyroxine Morbid obesity -BMI-34 kg/m2 Oropharyngeal candidiasis -apparent oral lesions on examination; ongoing odynophagia, dysphagia; symptoms resolved -opportunistic infection in immunocompromised patient -loaded with fluconazole 400 mg x 1, now on 200 mg once daily; due to improvement will switch to PO, plan to treat x 7 days -off IVF hydration; improved oral intake -tolerating GI soft diet -nystatin swish and swallow, magic mouthwash -pain control as needed -appreciate ST evaluation; cleared for regular diet/liquids Rectal fissure -on exam with some intermittent bleeding; no more so far -continue to monitor H/H; drop likely dilutional Surgical History H/O pelvic surgery Cervical biopsy, cystoscopy with biopsy, rigid proctoscopy to 15 cm ([place]) Family History Mother CAD (coronary artery disease) Father Aneurysm brain Sister Cancer breast cancer Family/Other Cancer breast cancer in niece Social History Smoking and tobacco status: never smoked Alcohol intake: never Household members: children Housing: House Physical Exam Const: COMMON NORMALS: no acute distress, patient oriented x3 and alert GENERAL APPEARANCE: cooperative HENMT: HEAD & SCALP: normal to inspection FACE & SINUS: normal facial exam Eye: GENERAL EYE: appearance normal, both eyes and all related structures Neck/C-Spine: COMMON NORMALS: supple, no meningeal signs and no JVD Chest: COMMONS NORMALS: normal inspection of the chest Resp: COMMON NORMALS: normal respiratory effort, No use of accessory muscles and clear to auscultation bilaterally AUSCULTATION: clear to auscultation bilaterally Cardio: COMMON NORMALS: no JVD, regular rhythm and No murmurs present (Cardio) RATE: tachycardic RHYTHM: regular rhythm GI: COMMON NORMALS: Normal to inspection, nondistended, normoactive bowel sounds present, Soft to palpation and non-tender INSPECTION: Yes normal to inspection AUSCULTATION: Yes normoactive bowel sounds PALPATION: Yes Soft to palpation Back/Pelvis: COMMON NORMALS: thoracic and lumbar spine normal to inspection Extremity: COMMON NORMALS: normal to inspection Neuro: COMMON NORMALS: patient oriented x3, moves all extremities, no focal motor deficits and no sensory deficits noted SENSORIUM/ORIENTATION: Yes alert MENINGEAL SIGNS: Yes no meningeal signs GAIT: Yes Unable to assess gait SENSORY EXAM: No sensory level loss detected MOTOR EXAM: Other motor observations present (Positive straight leg raises bilaterally. Unable to elicit patellar reflexes on either leg.) Psych: COMMON NORMALS: mental status grossly normal, cooperative and normal affect Skin: COMMON NORMALS: no rashes or lesions noted and turgor normal GENERAL SKIN EXAM: no rashes or lesions noted and turgor normal Course ED course: This patient is here with right leg pain. During the course of her work-up I got a call from Dr. Kendell Mendoza with whom the patient had a appointment today. She missed the appointment because she was here in the ER and Dr. Paez wanted me to know that she had been following her for a ruptured and abscessed diverticula. The patient was supposed to have had a repeat CT scan of her abdomen to make sure the abscess had resolved. I did go ahead and do that here in case there was any association with her pain in the abscess. That CT showed no abscess. I also spoke to Dr. Salamanca about her recent back CT and he will see her in the office. He asked me to order an outpatient MRI which I have done. The patient has been on hydrocodone says it does not help at all. I wrote her for a small number of oxycodone. She was recently on a steroid taper and I do not think she should probably do another one right away. Vital Signs: Vital signs: Vital Signs Temperature 98.5 F 04/21/20 11:15 Pulse Rate 103 H 04/21/20 16:49 Respiratory Rate 18 04/21/20 16:49 Blood Pressure 164/84 04/21/20 16:49 Pulse Oximetry 95 04/21/20 16:49 MDM - Extremity (Nontraumatic) Lab Data: Labs: Lab Results 04/21/20 04/21/20 04/21/20 Range/Units 12:15 12:15 12:15 WBC 5.0 (4.0-10.0) 10^3/ uL RBC 3.73 L (4.1-5.3) 10^6/u L Hgb 11.0 L (11.5-15.3) g/dL Hct 35.6 L (37.0-47.0) % MCV 95.4 (81-99) fL MCH 29.5 (28.0-34.0) pg MCHC 30.9 (30.0-36.0) g/dL RDW 13.7 (12.1-15.1) % Plt Count 186 (130-400) 10^3/c mm MPV 10.0 (7.4-10.4) fL Neut % (Auto) 71.4 % Lymph % (Auto) 17.3 % Hutchinson % (Auto) 10.3 % Eos % (Auto) 0.6 % Baso % (Auto) 0.2 % Neut # (Auto) 3.59 (1.8-7.7) 10^3/u L Lymph # (Auto) 0.9 (0.8-4.8) 10^3/u L Hutchinson # (Auto) 0.5 (0.2-0.9) 10^3/u L Eos # (Auto) 0.0 (0.0-0.8) 10^3/u L Baso # (Auto) 0.0 (0.0-0.1) 10^3/u L Nucleated RBC % (a uto) 0 % Nucleated RBCs # 0.0 /100WBC PT 14.90 (12.1-14.9) SECO NDS INR 1.14 (0.8-1.2) Sodium 140 (136-145) mmol/L Potassium 3.8 (3.5-5.1) mmol/L Chloride 102 (98-107) mmol/L Carbon Dioxide 25 (22-29) mmol/L Anion Gap 16.8 (5-19) BUN 11 (8-23) mg/dL Creatinine 0.9 (0.5-0.9) mg/dL GFR Calculation Not Reportable Glucose 148 H (65-115) mg/dL Calculated Osmolal ity 292 (285-295) mOsm/k g Calcium 11.1 H (8.5-10.5) mg/dL Total Bilirubin 0.8 (0.15-1.2) mg/dL AST 23 (0-32) U/L ALT 13 (0-33) U/L Alkaline Phosphata se 165 H (35-105) IU/L Total Protein 7.1 (6.6-8.7) g/dL Albumin 4.1 (3.5-5.2) g/dL Globulin 3.0 (1.3-4.6) g/dL Urine Color (Yellow) Urine Appearance (CLEAR) Urine pH (5-7) Ur Specific Gravit y (1.005-1.030) Urine Protein (Negative) Urine Glucose (UA) (Normal) Urine Ketones (Negative) Urine Blood (Negative) Urine Nitrate (Negative) Urine Bilirubin (Negative) Urine Urobilinogen (Negative) mg/dL Ur Leukocyte Sri ase (Negative) 04/21/20 Range/Units 12:26 WBC (4.0-10.0) 10^3/ uL RBC (4.1-5.3) 10^6/u L Hgb (11.5-15.3) g/dL Hct (37.0-47.0) % MCV (81-99) fL MCH (28.0-34.0) pg MCHC (30.0-36.0) g/dL RDW (12.1-15.1) % Plt Count (130-400) 10^3/c mm MPV (7.4-10.4) fL Neut % (Auto) % Lymph % (Auto) % Hutchinson % (Auto) % Eos % (Auto) % Baso % (Auto) % Neut # (Auto) (1.8-7.7) 10^3/u L Lymph # (Auto) (0.8-4.8) 10^3/u L Hutchinson # (Auto) (0.2-0.9) 10^3/u L Eos # (Auto) (0.0-0.8) 10^3/u L Baso # (Auto) (0.0-0.1) 10^3/u L Nucleated RBC % (a uto) % Nucleated RBCs # /100WBC PT (12.1-14.9) SECO NDS INR (0.8-1.2) Sodium (136-145) mmol/L Potassium (3.5-5.1) mmol/L Chloride (98-107) mmol/L Carbon Dioxide (22-29) mmol/L Anion Gap (5-19) BUN (8-23) mg/dL Creatinine (0.5-0.9) mg/dL GFR Calculation Glucose (65-115) mg/dL Calculated Osmolal ity (285-295) mOsm/k g Calcium (8.5-10.5) mg/dL Total Bilirubin (0.15-1.2) mg/dL AST (0-32) U/L ALT (0-33) U/L Alkaline Phosphata se (35-105) IU/L Total Protein (6.6-8.7) g/dL Albumin (3.5-5.2) g/dL Globulin (1.3-4.6) g/dL Urine Color Straw (Yellow) Urine Appearance Clear (CLEAR) Urine pH 5.0 (5-7) Ur Specific Gravit y 1.010 (1.005-1.030) Urine Protein Neg (Negative) Urine Glucose (UA) Norm (Normal) Urine Ketones Negative (Negative) Urine Blood Neg (Negative) Urine Nitrate Negative (Negative) Urine Bilirubin Neg (Negative) Urine Urobilinogen Norm (Negative) mg/dL Ur Leukocyte Sri ase Negative (Negative) Discharge Plan Discharge Patient Disposition: Home Clinical Impression: Lumbar radiculopathy, right Condition: Stable Prescriptions: New oxycodone 5 mg tablet 5 mg PO Q6H PRN (Reason: pain) Qty: 20 RF: 0 Discontinued dexamethasone 1 mg Tablet 1 mg PO DAILY RF: 0 hydrocodone-acetaminophen 7.5-325 mg tablet 1 tab PO Q6H PRN (Reason: Pain) RF: 0 No Action ertapenem 1 gram recon soln 1 gm IV Q24H 14 Days Qty: 14 RF: 0 ciprofloxacin HCl 500 mg tablet 500 mg PO BID 10 Days Qty: 20 RF: 0 metronidazole [Flagyl] 500 mg tablet 500 mg PO BID 10 Days Qty: 20 RF: 0 Novolog Flexpen U-100 Insulin 100 unit/mL (3 mL) Insulin Pen See Rx Instructions .ROUTE .COMPLEX RF: 0 Levemir FlexTouch U-100 Insuln 100 unit/mL (3 mL) Insulin Pen 20 unit SUBCUT BEDTIME RF: 0 pantoprazole 20 mg tablet,delayed release (DR/EC) 40 mg PO BID PRN (Reason: stomach acid/heartburn) Qty: 0 RF: 0 Eliquis 5 mg Tablet 2.5 mg PO BID 30 Days Qty: 60 RF: 0 Robaxin-750 750 mg tablet 750 mg PO Q6H Qty: 30 RF: 0 Percocet 5-325 mg tablet 1 tab PO Q6H PRN (Reason: pain) Qty: 14 RF: 0 Celebrex 200 mg capsule 200 mg PO BID Qty: 30 RF: 0 citalopram 40 mg tablet 40 mg PO DAILY RF: 0 alprazolam 0.5 mg tablet 0.5 mg PO BID PRN (Reason: Anxiety) RF: 0 levothyroxine 150 mcg tablet 150 mcg PO DAILY RF: 0 lorazepam 1 mg tablet 1 mg PO TID PRN (Reason: Nausea) RF: 0 metformin 500 mg tablet extended release 24 hr 1,000 mg PO DAILY RF: 0 rosuvastatin [Crestor] 40 mg tablet 40 mg PO BEDTIME RF: 0 nystatin 100,000 unit/mL Suspension 500,000 unit PO QID Qty: 60 RF: 0 Discharge Orders: Discharge Order (Routine); Ordered 04/21/20 Ordered By: Lucy Oconnor Other Ambulatory Orders: MR lumbar spine wo con* [id number] (Routine) Timeframe: 1 Week Facility: [facility] - Location: Radiology [facility] Ordered By: Lucy Oconnor Referrals: Patricio Salamanac DO [Physician] - 1 week Chapin Keita MD [Primary Care Provider] - Discharge Diet: Usual diet Discharge Activity: Resume usual activity Patient Instructions: Sciatica (ED) Activity Restrictions/Additional Instructions: Use the pain medicine only as needed for severe pain. Do not take it with the hydrocodone that you were previously prescribed. You must take 1 or the other but not both. Follow-up with Dr. Salamanca as recommended. Someone should contact you about setting up an MRI. Return to the emergency department if new or worse symptoms. 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
[2020-04-21 12:43] LABS: Add Urine Microscopic? NO
[2020-04-21 12:46] LABS: Basophils % 0.2 %; Eosinophils % 0.6 %; Hematocrit 35.6 % (37.0-47.0); Lymphocytes # 0.9 10^3/uL (0.8-4.8); Lymphocytes % 17.3 %; Mean Corpuscular HGB Conc 30.9 g/dL (30.0-36.0); Mean Corpuscular Hemoglobin 29.5 pg (28.0-34.0); Mean Corpuscular Volume 95.4 fL (81-99); Monocytes # 0.5 10^3/uL (0.2-0.9); Monocytes % 10.3 %; Neutrophils # 3.59 10^3/uL (1.8-7.7); Neutrophils % 71.4 %; Nucleated Red Blood Cells % 0 %; Platelet Count 186 10^3/cmm (130-400); Red Blood Count 3.73 10^6/uL (4.1-5.3); Red Cell Distribution Width 13.7 % (12.1-15.1)
[2020-04-21 13:03] LABS: INR 1.14 (0.8-1.2)
[2020-04-21 13:03] LABS: Bilirubin Urine Neg (Negative); Blood Urine Neg (Negative); Glucose Urine UA Norm (Normal); Ketones Urine Negative (Negative); Leukocyte Esterase Urine Negative (Negative); Nitrate Urine Negative (Negative); Protein Urine Neg (Negative); Urine Appearance Clear (CLEAR); Urine Color Straw (Yellow); Urobilinogen Urine Norm (Negative)
[2020-04-21 13:04] LABS: Alanine Aminotransferase 13 U/L (0-33); Albumin Level 4.1 g/dL (3.5-5.2); Alkaline Phosphatase 165 IU/L (35-105); Aspartate Amino Transferase 23 U/L (0-32); Blood Urea Nitrogen 11 mg/dL (8-23); Calcium 11.1 mg/dL (8.5-10.5); Carbon Dioxide 25 mmol/L (22-29); Chloride 102 mmol/L (98-107); Glucose 148 mg/dL (65-115); Osmolality Calculated 292 mOsm/kg (285-295); Sodium 140 mmol/L (136-145); Total Bilirubin 0.8 mg/dL (0.15-1.2); Total Protein 7.1 g/dL (6.6-8.7)
[2020-04-21 13:08] LABS: Anion Gap 16.8 (5-19)
[2020-04-21 13:09] LABS: Potassium 3.8 mmol/L (3.5-5.1)
--- NOTE | 2020-04-21 14:36 | CT_ITS ---
WS: [id number] CT ABDOMEN PELVIS TECHNIQUE: Contrast-enhanced CT of the abdomen and pelvis with coronal and sagittal reformatted image s. CLINICAL INFORMATION: back pain, history of diverticular abscess COMPARISON: March 19, 2020 DLP: 1099.[address] scans at [facility] use at least one of these dose optimization techniques: automat ed exposure control; mA and/or kV adjustment per patient size (includes targeted exams where dose is matched to clinical indication); or iterative reconstruction. FINDINGS: Previously described diverticular abscess has resolved. No evidence of recurrent or significant resid ual diverticular fluid collection. Sigmoid diverticulosis. No evidence of acute diverticulitis. Mild diffuse fatty infiltration liver. Cholelithiasis. Normal portal vein and splenic vein. Normal GE junction. Adrenal glands are normal. No hydronephrosis in either kidney. Splenic granulomas. Lung ba ses are well aerated. Grade 1 anterolisthesis L5 on S1 with chronic bilateral pars defects. Normal GE junction. Fatty atrophy of the pancreas. No evidence of small or large bowel obstruction. F at-containing umbilical hernia. No free fluid in the abdomen or pelvis. Normal caliber abdominal aort a. Aortic calcification. Heterogeneous uterus with diffuse endometrial thickening similar to the prior examinations. CT/CT abdomen pelvis w con* [id number] IMPRESSION: 1. No evidence of residual or recurrent diverticular abscess. 2. No evidence of acute diverticulitis. 3. Heterogeneous uterine enhancement with history of cervical stenosis. Diffus e endometrial thickening suspicious for neoplasia in a patient this age. Recomm end GEOGRAPHY INSTRUCTOR consultation and hysteroscopy. 4. Diffuse fatty infiltration liver. 5. Dense cholelithiasis unchanged. 6. Stable anterolisthesis L5 on S1 with bilateral pars defects.
[2020-04-21] MEDS: iohexol 300 mg/mL 100 mL Btl IV (14:48)
[2020-04-21] MEDS: HYDROmorphone 1 mg/mL INJ 1 mL 0.5 MG IVP (15:31)
--- NOTE | 2020-04-22 09:51 | DCPLANNER ---
ekg manager had message to schedule an outpatient MRI for patient and a follow up appointment for patient with Dr. Salamanca at ortho. ekg manager faxed order for the MRI to centralized scheduling. ekg manager also called the ortho clinic, made referral and informed the clinic that patient would need a follow up appointment for patient after the MRI. ekg manager will call for appointment information.
--- NOTE | 2020-04-30 14:23 | DCPLANNER ---
Patient has a follow up appointment scheduled for Friday, May 08, 2020 at 8:45. Centralized scheduling will call patient with appointment information. Patient needs a follow up appointment scheduled with ortho after the MRI, assistant case manager called the ortho clinic, spoke with Lupe, gave clinic patients information. developer relations manager explained that appointment would need to be after 05.08.[address] Salamanca. developer relations manager was told that patients information would be printed and reviewed. Clinic will call patient with appointment information.
--- NOTE | 2020-05-01 09:47 | DCPLANNER ---
Patient has a follow up appointment scheduled for Tuesday, May 12, 2020 at 10:[address] Salamanca. Clinic will call patient with appointment information.
--- NOTE | 2020-06-16 12:43 | DCPLANNER ---
Patient had an MRI scheduled for 05.08.20 - patient did not attend appointment Patient had an appointment with Dr. Salamanca at [facility] scheduled for 05.12.20 - appointment cancelled
== END 2020-04-21 16:51 | disposition home or self-care (01) ==
PROVIDERS: Emergency Provider Emergency Medicine; PCP Family Medicine
DX: M54.16 Radiculopathy, lumbar region (principal); Z79.01 Long term (current) use of anticoagulants; Z79.4 Long term (current) use of insulin; E11.22 Type 2 diabetes mellitus with diabetic chronic kidney disease; I12.9 Hypertensive chronic kidney disease with stage 1 through stage 4 chronic kidney disease, or unspecified chronic kidney disease; N18.2 Chronic kidney disease, stage 2 (mild); Z85.41 Personal history of malignant neoplasm of cervix uteri
CPT/HCPCS: 12345; 74177; 80053; 81003; 85025; 85610; 93005; 96365; 96374; 96375; 99283; J1170; J2270; J2405; Q9967

== ENCOUNTER 2020-04-22 09:12 | Emergency (ER) | payer MEDICARE, MEDICAID, SELFPAY ==
[2020-04-22 09:31] VITALS: BP 163/83; PULSE 113; RESP 16; TEMP 37; O2SAT 97; BMI 32.3
[2020-04-22 09:34] VITALS: BP 163/83; PULSE 108; RESP 16; O2SAT 98
--- NOTE | 2020-04-22 10:17 | CT_ITS ---
WS: [id number] INDICATION: Abnormal radiograph right femur. Femur pain. TECHNIQUE: Noncontrast CT right femur. Coronal and sagittal reformatted images. FINDINGS: Comparison radiograph April 04, [address] PET CT October 26, 2019 Small amount of endosteal scalloping right proximal femoral shaft. This was included on the prior PET /CT from 2018 and 2019 without FDG uptake. This is unchanged in appearance from those examinations. N o pathologic fracture. This is likely benign. No evidence of cortical destruction. Femoral shaft is otherwise normal in appearance. Moderate degene rative arthritis right hip. Hypertrophic patella. Normal soft tissues. CT/CT femur RT w con [id number] IMPRESSION: 1. No acute metastatic lesions in the right proximal femur. No pathologic frac ture. 2. Small amount of endosteal scalloping right proximal femoral shaft was prese nt on the prior PET/CTs and is unchanged in appearance. No abnormal FDG uptake. This is likely benign. 3. Recommend follow-up with MRI or CT if persistent pain 4. No other significant findings.
--- NOTE | 2020-04-22 10:18 | CT_ITS ---
WS: [id number] CT HEAD TECHNIQUE: Noncontrast CT of the head obtained from the skullbase to the vertex. CLINICAL INFORMATION: decline - ? metastatic disease COMPARISON: None. DLP: 1759.[address] scans at use at least one of these dose optimization techniques: automat ed exposure control; mA and/or kV adjustment per patient size (includes targeted exams where dose is matched to clinical indication); or iterative reconstruction. FINDINGS: No evidence of intracranial hemorrhage or mass effect. Ventricular system and basal cisterns are roberto nt. Mild small vessel changes with mild parenchymal volume loss. Chronic lacunar infarcts or prominen t perivascular spaces in the left lateral basal ganglia. No extra-axial fluid collections. No evidenc e of mass or mass effect. Normal kamara-white differentiation. Paranasal sinuses and mastoid air cells are well aerated. .Normal visualized soft tissues. CT/CT head wo con* [id number] IMPRESSION: 1. No evidence of intracranial hemorrhage or mass effect. 2. Mild small vessel changes. Mild parenchymal volume loss. 3. No acute intracranial findings. Notified Dr. Saab at 04/22/2020 10:59 AM.
[2020-04-22] MEDS: iohexol 300 mg/mL 100 mL Btl IV (10:44)
[2020-04-22 11:10] VITALS: BP 167/90; PULSE 98; RESP 15; O2SAT 95
--- NOTE | 2020-04-22 11:16 | W.ED.EXTPRO ---
HPI - Extremity Problem General: Chief complaint: Extremity Problem,Nontraumatic Stated complaint: SEVERE PAIN IN RT LEG AND HIP Time Seen by Provider: 04/22/20 09:15 History of Present Illness: HPI Narrative: 74-year-old female patient presents to the emergency department via private auto, she is accompanied by her hjxurxfs-hn-aee today. She reports continued right hip pain that radiates down RLE. + history of cervical cancer, unable to tolerate chemotherapy, cisplatin. She was seen in the emergency department yesterday. CT the abdomen pelvis revealed uterine enhancement with history of cervical stenosis, endometrial thickening suspicious for neoplasm and patient's age. No acute findings of the abdomen or pelvis with exam. Evaluated by Dr. Downey, oncology 02/2020. She denies recent falls or trauma; however upon my interview with [id number], she reports Ms. Raines has fell 3 times in the past month. Ms. Sotelo lives at home alone. Aaeiooft-ku-crj is concerned in regards to her mental status, reports decreased ability to remember things. 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 She is wheelchair-bound in the home. States medication prescribed in the emergency department yesterday, oxycodone, is not effective with pain control. Poor historian. Difficult to obtain history of present illness, medical records reviewed. She reports her pain has not changed. MD Complaint: extremity pain Onset (ago): week(s) Pain Consistency: constant Location: right and lower extremity Severity scale (1-10): 7 Quality: aching Radiation: distal Relieving factors: cold therapy Associated symptoms: Reports arthralgias; Deny chest pain, fever(s) or rash Review of Systems General: Reports: 10 or more systems reviewed and unremarkable except in HPI and below Const: Denies: fever(s), chills or diaphoresis Eyes: Denies: blurry vision or eye redness ENMT: Denies: throat pain, dental pain or disequilibrium Card: Denies: chest pain, palpitations or irregular heart rhythm Resp: Denies: dyspnea, productive cough, non-productive cough or wheezing GI: Denies: abdominal pain, nausea or vomiting : Denies: difficulty voiding or dysuria Musc: Reports: back pain, limited range of motion and muscle weakness; Denies: neck pain Skin/Breast: Denies: rash or pruritus Neuro: Denies: headache(s), weakness in extremities or behavioral changes Psych: Reports: memory loss and difficulty concentrating; Denies: anxiety, depression, suicidal ideation or homicidal ideation Willie/Lymph: Denies: easy bruising PFSH ED PFSH: Medical History Anxiety -anxiolytics PRN Cervical cancer, FIGO stage 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 Ybarra and Dr. Downey -has received Cisplatin chemotherapy with noted toxicity including nausea, anorexia, worsening pancytopenia requiring transfusion -pending restaging PET/CT to determine next steps in management -on oral steroids Cholelithiasis Chronic anemia -chronic normocytic anemia -baseline Hg is around 10 -continue to monitor H/H; drop likely dilutional CKD (chronic kidney disease) stage 2, GFR 60-89 ml/min Diabetes mellitus -A1c-6.6 (09/2019) -Accuchecks, ISS, hypoglycemia precautions -hyperglycemia with steroids -consistent carb diet Diverticulitis of large intestine with perforation and abscess without bleeding Gastroesophageal reflux disease -PPI IV Hypertension -normotensive, continue to monitor vital signs -continue to hold oral antihypertensives due to dehydration, renal impairment (on ACEi-HCTZ combination); can resume on d/c Hypothyroidism -on levothyroxine Morbid obesity -BMI-34 kg/m2 Oropharyngeal candidiasis -apparent oral lesions on examination; ongoing odynophagia, dysphagia; symptoms resolved -opportunistic infection in immunocompromised patient -loaded with fluconazole 400 mg x 1, now on 200 mg once daily; due to improvement will switch to PO, plan to treat x 7 days -off IVF hydration; improved oral intake -tolerating GI soft diet -nystatin swish and swallow, magic mouthwash -pain control as needed -appreciate ST evaluation; cleared for regular diet/liquids Rectal fissure -on exam with some intermittent bleeding; no more so far -continue to monitor H/H; drop likely dilutional Surgical History H/O pelvic surgery Cervical biopsy, cystoscopy with biopsy, rigid proctoscopy to 15 cm ([facility]) Family History Mother CAD (coronary artery disease) Father Aneurysm brain Sister Cancer breast cancer Family/Other Cancer breast cancer in niece Social History Smoking and tobacco status: never smoked Alcohol intake: never Household members: children Housing: House Physical Exam Const: COMMON NORMALS: no acute distress, healthy appearing, alert and well nourished GENERAL APPEARANCE: cooperative, comfortable, well kempt and well hydrated NUTRITIONAL APPEARANCE: overweight ORIENTATION/CONSCIOUSNESS: Yes awake, Yes oriented to person, Yes oriented to place and Yes confused (Confused to time) HENMT: COMMON NORMALS: normocephalic, Normal external nose present and moist oral mucous membranes HEAD & SCALP: normocephalic NOSE: Normal external nose present Eye: COMMON NORMALS: Equal, round and reactive pupils present and EOMs intact bilaterally GENERAL EYE: appearance normal, both eyes and all related structures PUPIL: Yes Equal, round and reactive pupils present Neck/C-Spine: COMMON NORMALS: full ROM and no lymphadenopathy GENERAL: Yes normal visual inspection and Yes trachea midline CERVICAL SPINE: Yes cervical ROM normal Lymph: LYMPHATIC: no lymphadenopathy noted Chest: COMMONS NORMALS: normal inspection of the chest Resp: COMMON NORMALS: normal respiratory effort and clear to auscultation bilaterally AUSCULTATION: clear to auscultation bilaterally Cardio: COMMON NORMALS: regular rhythm, S1 normal heart sound present, S2 normal heart sound present and Peripheral pulses 2+ throughout RHYTHM: regular rhythm HEART SOUNDS: S1 normal heart sound present and S2 normal heart sound present PERIPHERAL PULSES: Peripheral pulses 2+ throughout GI: COMMON NORMALS: Soft to palpation and non-tender INSPECTION: Yes normal to inspection AUSCULTATION: Yes normoactive bowel sounds PALPATION: Yes Soft to palpation : COMMON NORMALS: Yes no CVA tenderness BLADDER/KIDNEY EXAM: Yes no CVA tenderness Back/Pelvis: COMMON NORMALS: no CVA tenderness and thoracic and lumbar spine normal to inspection SACROILIAC JOINTS: Yes SI joint(s) abnormal SI joint details: tender to palpation (rt) and pain elicited by compression of iliac crest maneuver (rt) SACRUM: no ecchymosis COCCYX: no swelling Extremity: COMMON NORMALS: normal to inspection and capillary refill normal GENERAL: Yes normal exam except as noted Neuro: COMMON NORMALS: moves all extremities SENSORIUM/ORIENTATION: Yes alert, Yes oriented to person, Yes oriented to place and Yes other (quiet) SPEECH: speech normal GAIT: Yes Unable to assess gait MOTOR EXAM: Abnormal motor strength present (BLE strenght 4/5) Psych: COMMON NORMALS: mental status grossly normal, Normal thought process present and cooperative APPEARANCE: Yes well kempt ACTIVITY/MOTOR BEHAVIOR: Yes appropriate eye contact THOUGHT PROCESS: Normal thought process present Skin: COMMON NORMALS: no rashes or lesions noted and turgor normal GENERAL SKIN EXAM: no rashes or lesions noted and turgor normal Course ED course: Spoke with Dr. Keita, primary care physician, she has appointment today at 1 PM; daughter in law was not aware of her appointment today. Case was discussed including right femur series completed 04/04/2020. Goal is to keep patient's pain controlled that she is a poor candidate for chemotherapy due to continued toxicity. Concern metastatic disease as cause of pain, goal is pain control. CT scan of the head did not reveal metastatic disease. CT scan of the right femur without metastatic lesions, endosteal scalloping remains without change. Results of serology and radiology examinations as well as my discussion with Dr. Keita provided to the [id number]-ir-jjf. She is requesting follow-up with Dr. Keita today at 1 PM, plan to discharge to Dr. Keita's office for further care. Patient provided 10mg Percocet during her stay which helped with pain. Vital Signs: Vital signs: Vital Signs Temperature 98.6 F 04/22/20 09:31 Pulse Rate 100 04/22/20 12:06 Respiratory Rate 12 04/22/20 12:06 Blood Pressure 160/76 04/22/20 12:06 Pulse Oximetry 97 04/22/20 12:06 MDM - Extremity (Nontraumatic) Lab Data: Labs: Lab Results 04/22/20 04/22/20 Range/Units 11:22 11:22 WBC 4.1 (4.0-10.0) 10^3/ uL RBC 3.41 L (4.1-5.3) 10^6/u L Hgb 10.2 L (11.5-15.3) g/dL Hct 33.7 L (37.0-47.0) % MCV 98.8 (81-99) fL MCH 29.9 (28.0-34.0) pg MCHC 30.3 (30.0-36.0) g/dL RDW 14.0 (12.1-15.1) % Plt Count 165 (130-400) 10^3/c mm MPV 10.1 (7.4-10.4) fL Neut % (Auto) 69.1 % Lymph % (Auto) 16.6 % [place] % (Auto) 12.9 % Eos % (Auto) 1.0 % Baso % (Auto) 0.2 % Neut # (Auto) 2.83 (1.8-7.7) 10^3/u L Lymph # (Auto) 0.7 L (0.8-4.8) 10^3/u L [place] # (Auto) 0.5 (0.2-0.9) 10^3/u L Eos # (Auto) 0.0 (0.0-0.8) 10^3/u L Baso # (Auto) 0.0 (0.0-0.1) 10^3/u L Nucleated RBC % (a uto) 0 % Nucleated RBCs # 0.0 /100WBC Sodium 141 (136-145) mmol/L Potassium 3.8 (3.5-5.1) mmol/L Chloride 102 (98-107) mmol/L Carbon Dioxide 27 (22-29) mmol/L Anion Gap 15.8 (5-19) BUN 11 (8-23) mg/dL Creatinine 0.8 (0.5-0.9) mg/dL GFR Calculation Not Reportable Glucose 142 H (65-115) mg/dL Calculated Osmolal ity 294 (285-295) mOsm/k g Calcium 10.7 H (8.5-10.5) mg/dL Total Bilirubin 1.1 (0.15-1.2) mg/dL AST 14 (0-32) U/L ALT 9 (0-33) U/L Alkaline Phosphata se 146 H (35-105) IU/L Total Protein 6.6 (6.6-8.7) g/dL Albumin 4.0 (3.5-5.2) g/dL Globulin 2.6 (1.3-4.6) g/dL Imaging Data^: Other CT: Radiologist's impression: [address] [place] [address] CT Scan Report Signed Patient: Sharon Sotelo Unit #: [id number] : 1945 Age/Sex: 74 / F ADM Date: 04/22/20 Loc: ER Room/Bed: Attending Dr: Ordering Provider/Ordering MD: Vel Saab DO Date of Service: 04/22/20 Procedure(s): CT femur RT w con [id number] Accession Number(s): [id number] Report Number: [id number] WS: [id number] INDICATION: Abnormal radiograph right femur. Femur pain. TECHNIQUE: Noncontrast CT right femur. Coronal and sagittal reformatted images. FINDINGS: Comparison radiograph April 04, [address] PET CT October 26, 2019 Small amount of endosteal scalloping right proximal femoral shaft. This was included on the prior PET/CT from 2018 and 2019 without FDG uptake. This is unchanged in appearance from those examinations. No pathologic fracture. This is likely benign. No evidence of cortical destruction. Femoral shaft is otherwise normal in appearance. Moderate degenerative arthritis right hip. Hypertrophic patella. Normal soft tissues. CT/CT femur [place] w con [id number] IMPRESSION: 1. No acute metastatic lesions in the right proximal femur. No pathologic fracture. 2. Small amount of endosteal scalloping right proximal femoral shaft was present on the prior PET/CTs and is unchanged in appearance. No abnormal FDG uptake. This is likely benign. 3. Recommend follow-up with MRI or CT if persistent pain 4. No other significant findings. Dictated By: Romel Carbajal MD Signed By: Romel Carbajal MD Signed Date/Time: 04/22/20 1148 DD/ 1128 CT Head: Radiologist's impression: [facility] [address] [place] [address] CT Scan Report Signed Patient: Sharon Sotelo Unit #: [id number] : 1945 Age/Sex: 74 / F ADM Date: 04/22/20 Loc: ER Room/Bed: Attending Dr: Ordering Provider/Ordering MD: Orin Stearns Date of Service: 04/22/20 Procedure(s): CT head wo con* [id number] Accession Number(s): [id number] Report Number: [id number] WS: [id number] CT HEAD TECHNIQUE: Noncontrast CT of the head obtained from the skullbase to the vertex. CLINICAL INFORMATION: decline - ? metastatic disease COMPARISON: None. DLP: 1759.[address] scans at [facility] use at least one of these dose optimization techniques: automated exposure control; mA and/or kV adjustment per patient size (includes targeted exams where dose is matched to clinical indication); or iterative reconstruction. FINDINGS: No evidence of intracranial hemorrhage or mass effect. Ventricular system and basal cisterns are patent. Mild small vessel changes with mild parenchymal volume loss. Chronic lacunar infarcts or prominent perivascular spaces in the left lateral basal ganglia. No extra-axial fluid collections. No evidence of mass or mass effect. Normal kamara-white differentiation. Paranasal sinuses and mastoid air cells are well aerated. .Normal visualized soft tissues. CT/CT head wo con* [id number] IMPRESSION: 1. No evidence of intracranial hemorrhage or mass effect. 2. Mild small vessel changes. Mild parenchymal volume loss. 3. No acute intracranial findings. Notified Dr. Saab at 04/22/2020 10:59 AM. Dictated By: Romel Carbajal MD Signed By: Romel Carbajal MD Signed Date/Time: 04/22/20 105 DD/ 105 Discharge Plan Discharge Patient Disposition: Home Clinical Impression: Abnormal CT of the abdomen Low back pain Qualifiers: Chronicity: chronic Back pain laterality: right Sciatica presence: with sciatica Sciatica laterality: sciatica of right side Qualified Code(s): M54.41 - Lumbago with sciatica, right side Condition: Stable Prescriptions: No Action hydrocodone-acetaminophen 7.5-325 mg tablet 1 tab PO Q6H PRNRF: 0 oxycodone-acetaminophen 7.5-325 mg tablet 1 tab PO TID PRN (Reason: pain) 7 Days Qty: 21 RF: 0 naloxegol 25 mg tablet 25 mg PO QAM Qty: 30 RF: 0 naloxone 4 mg/actuation spray,non-aerosol 4 mg INTRANASAL Q3M PRN (Reason: opioid overdose) Qty: 2 RF: 0 ertapenem 1 gram recon soln 1 gm IV Q24H 14 Days Qty: 14 RF: 0 metronidazole [Flagyl] 500 mg tablet 500 mg PO BID 10 Days Qty: 20 RF: 0 Novolog Flexpen U-100 Insulin 100 unit/mL (3 mL) Insulin Pen See Rx Instructions .ROUTE .COMPLEX RF: 0 Levemir FlexTouch U-100 Insuln 100 unit/mL (3 mL) Insulin Pen 20 unit SUBCUT BEDTIME RF: 0 pantoprazole 20 mg tablet,delayed release (DR/EC) 40 mg PO BID PRN (Reason: stomach acid/heartburn) Qty: 0 RF: 0 Eliquis 5 mg Tablet 2.5 mg PO BID 30 Days Qty: 60 RF: 0 Robaxin-750 750 mg tablet 750 mg PO Q6H Qty: 30 RF: 0 Celebrex 200 mg capsule 200 mg PO BID Qty: 30 RF: 0 oxycodone 5 mg tablet 5 mg PO Q6H PRN (Reason: pain) Qty: 20 RF: 0 citalopram 40 mg tablet 40 mg PO DAILY RF: 0 levothyroxine 150 mcg tablet 150 mcg PO DAILY RF: 0 lorazepam 1 mg tablet 1 mg PO TID PRN (Reason: Nausea) RF: 0 rosuvastatin [Crestor] 40 mg tablet 40 mg PO BEDTIME RF: 0 nystatin 100,000 unit/mL Suspension 500,000 unit PO QID Qty: 60 RF: 0 Discharge Orders: Discharge Order (Routine); Ordered 04/22/20 Ordered By: Orin Stearns Referrals: Chapin Keita MD [Primary Care Provider] - Discharge Diet: Usual diet Discharge Activity: Limit activity as instructed Patient Instructions: Sciatica (ED), Chronic Back Pain (ED) Activity Restrictions/Additional Instructions: Follow-up with Dr. Keita today at 1 PM as scheduled Continue pain medication you have at home Continue with warm compresses alternating with cool compresses as needed for pain May apply [id number] topical pain patches such as Salonpas for pain to the area as needed Return to emergency department if you develop worsening pain, confusion or other worsening symptoms Continue follow-up with pain management as scheduled tomorrow. Discharge Date/Time: 04/22/20 12:27 Coding Level of Care Code ED Tools Developer for Chg Fwd Exam Comprehensive
[2020-04-22 11:26] LABS: Basophils % 0.2 %; Hematocrit 33.7 % (37.0-47.0); Hemoglobin 10.2 g/dL (11.5-15.3); Lymphocytes # 0.7 10^3/uL (0.8-4.8); Lymphocytes % 16.6 %; Mean Corpuscular HGB Conc 30.3 g/dL (30.0-36.0); Mean Corpuscular Hemoglobin 29.9 pg (28.0-34.0); Mean Corpuscular Volume 98.8 fL (81-99); Mean Platelet Volume 10.1 fL (7.4-10.4); Monocytes # 0.5 10^3/uL (0.2-0.9); Monocytes % 12.9 %; Neutrophils # 2.83 10^3/uL (1.8-7.7); Neutrophils % 69.1 %; Nucleated Red Blood Cells % 0 %; Platelet Count 165 10^3/cmm (130-400); Red Blood Count 3.41 10^6/uL (4.1-5.3); White Blood Count 4.1 10^3/uL (4.0-10.0)
[2020-04-22 11:29] VITALS: RESP 16; O2SAT 96
[2020-04-22] MEDS: oxyCODONE-APAP 10-325 mg Tablet 1 TAB PO (11:29)
[2020-04-22] MEDS: ondansetron 4 MG Tablet PO (11:29)
[2020-04-22 11:33] VITALS: BP 179/86; PULSE 102; RESP 14; O2SAT 96
[2020-04-22 11:51] LABS: Alanine Aminotransferase 9 U/L (0-33); Alkaline Phosphatase 146 IU/L (35-105); Anion Gap 15.8 (5-19); Aspartate Amino Transferase 14 U/L (0-32); Blood Urea Nitrogen 11 mg/dL (8-23); Calcium 10.7 mg/dL (8.5-10.5); Carbon Dioxide 27 mmol/L (22-29); Chloride 102 mmol/L (98-107); Creatinine Clr Calc Pharmacy 69.9957; Globulin 2.6 g/dL (1.3-4.6); Glucose 142 mg/dL (65-115); Osmolality Calculated 294 mOsm/kg (285-295); Potassium 3.8 mmol/L (3.5-5.1); Sodium 141 mmol/L (136-145); Total Bilirubin 1.1 mg/dL (0.15-1.2); Total Protein 6.6 g/dL (6.6-8.7)
[2020-04-22 12:06] VITALS: BP 160/76; PULSE 100; RESP 12; O2SAT 97
== END 2020-04-22 12:27 | disposition home or self-care (01) ==
PROVIDERS: Family Medicine; Emergency Provider Nurse Practitioner Family; PCP Family Medicine
DX: M54.41 Lumbago with sciatica, right side (principal); R93.5 Abnormal findings on diagnostic imaging of other abdominal regions, including retroperitoneum; Z79.01 Long term (current) use of anticoagulants; Z79.4 Long term (current) use of insulin; Z85.41 Personal history of malignant neoplasm of cervix uteri; E11.22 Type 2 diabetes mellitus with diabetic chronic kidney disease; I12.9 Hypertensive chronic kidney disease with stage 1 through stage 4 chronic kidney disease, or unspecified chronic kidney disease; N18.2 Chronic kidney disease, stage 2 (mild)
CPT/HCPCS: 12345; 36415; 70450; 73701; 80053; 85025; 99282; 99283; Q0162; Q9967

== ENCOUNTER → 2020-04-23 12:38 | Outpatient (BNVA) | payer MEDICARE, MEDICAID, SELFPAY | PROVIDERS: Family Provider Family Medicine; PCP Family Medicine; Visit Provider Anesthesiology Pain Medicine | DX: G89.29 Other chronic pain (principal); M54.41 Lumbago with sciatica, right side; M54.16 Radiculopathy, lumbar region; K59.03 Drug induced constipation; T40.2X5A Adverse effect of other opioids, initial encounter; X58.XXXA Exposure to other specified factors, initial encounter; Z79.891 Long term (current) use of opiate analgesic | CPT/HCPCS: 99205 ==

== ENCOUNTER 2020-04-24 09:39 | Outpatient (CLI) | payer MEDICARE, MEDICAID, SELFPAY ==
--- NOTE | 2020-04-24 13:05 | ONC FU_ITS ---
Dr. Downey Patient Follow-Up Note Patient: Sharon Sotelo Unit #: [id number]: 1945 Dicatated By: Gato Downey M.D.Date of Visit:Apr 24, 2020 Onc Med Follow-up/Prog Note Chief Complaint: Cervical cancer. 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 On 05/03/2019 she had presented to the emergency room with pain in the left lower quadrant/left flank area and difficulty voiding. Her CT abdomen/pelvis showed a soft tissue mass which was involving the left superior lateral aspect of the urinary bladder and was contiguous with the cervix. It measured at least 4 x 4.9 x 5.8 cm. There was associated ureterovesical junction obstruction and moderate left hydronephrosis. There was associated adenopathy including a left inferior pelvic lymph node measuring 1 x 1.5 cm, a left para-aortic lymph node measuring 1.4 cm, a common iliac lymph node measuring 1.1 cm, and bilateral external iliac lymph nodes measuring up to 2.1 x 4.2 cm on the right and 1 x 1.7 cm on the left. She was referred to Dr. Ybarra in [place]. On 06/04/2019 she underwent exam under anesthesia with cervical biopsy, cystoscopy with biopsy, and rigid proctoscopy to 15 cm. Her tumor appeared to be fixed to the left pelvic sidewall and there was noted to be right-sided parametrial disease. On the cystoscopy the tumor did appear to be involving the bladder. The cervical biopsy and the bladder biopsy both showed poorly differentiated squamous cell carcinoma. She was recommended to undergo chemoradiation. She began radiation concurrently with weekly cisplatin chemotherapy on 07/15/2019. She experienced no acute toxicity with her initial infusion of cisplatin. She was then able to continue her treatment weekly, completing her 6th infusion of cisplatin on 09/02/2019. She completed radiation on 09/03/2019 to a total dose of 5940 cGy. During her treatment she did require some growth factor support with Neupogen. She also required IV hydration on multiple occasions for nausea and poor oral intake. I had seen her for a follow-up visit on 09/18/2019. At that point she was really doing quite poorly, as she had gotten very weak and she was having significant anorexia/nausea, so that her oral intake was very poor. She was significantly pancytopenic with hemoglobin 6.4 g, white blood cell count 2000, and platelet count 66,000. She was transfused and she was given further IV hydration and supportive care measures. During subsequent follow-up there was further decline in the granulocyte count, nadiring at approximately 1000. She then began to show gradual improvement in her clinical status. However, during that time she had been to the radiation oncologist in [place] on 2 occasions, and on both she was declined for her brachytherapy. She eventually opted against treatment. Her other medical illnesses include hypertension, type 2 diabetes, and hypothyroidism. She also has chronic anxiety. She is a non-smoker. INTERIM HISTORY: On 12/21/2019 she was admitted to the hospital with complaints of chest pain in association with eating and rectal pain/bleeding. She had evidence of oral pharyngeal candidiasis and there was associated dehydration and acute renal injury. She also was significantly hyperglycemic. She had symptomatic improvement with IV hydration and IV fluconazole. Also was improvement in her renal function. She remained moderately anemic, but above transfusion threshold. The rectal bleeding was thought to be most likely due to anal fissure, and that improved with conservative management. Following discharge from the hospital, she did start Levemir 20 units daily at bedtime along with regular insulin per sliding scale. She began tapering off dexamethasone. She was then seen Dr. Keita with pain in the left lower quadrant of her abdomen. Her CT abdomen/pelvis on 02/11/2020 showed wall thickening of the sigmoid colon with associated inflammatory change and fluid. There were diverticula noted, and it was felt that the appearance was most consistent with sigmoid colon diverticulitis. There was no evidence of recurrent or metastatic neoplasm. She began on empiric antibiotic coverage with ciprofloxacin and metronidazole. Despite that, her symptoms worsened. On 02/14/2020 she was admitted to the hospital with abdominal abscess in association with bowel perforation. She was given antibiotic coverage with ceftazidime, vancomycin, and metronidazole. She was significantly anemic, requiring PRBC transfusion. She was found to have positive stool FOB, and she was taken off apixaban. She improved clinically. On 02/20/2020 she was discharged home to continue outpatient antibiotic coverage with ertapenem 1 g IV daily. She restarted apixaban with the dosage reduced to 2.5 mg twice daily. I had seen her for a follow-up visit on 03/04/2020. At that point she was still on her antibiotic therapy, and she was showing clinical improvement. Her further clinical course was complicated by development of pain in her right lower back and right leg, which was clinically felt to be consistent with sciatica. She has had multiple ER visits for it this month. Her right hip x-ray on 04/04/2020 showed radiolucencies in the proximal femoral shaft with some endosteal scalloping and possibly involvement of the lateral cortex and medullary canal felt to be most consistent with metastatic disease versus myeloma versus osteomyelitis. Lumbar spine CT on 04/12/2020 showed degenerative changes but no evidence of metastatic disease. CT abdomen/pelvis on 04/21/2020 showed no evidence of residual or recurrent diverticular abscess. There was evidence of diffuse endometrial thickening which was felt to be suspicious for neoplasia, but the findings were similar to the previous study from March 2020. CT of the right femur on 04/22/2020 showed no evidence of metastatic lesions in the right proximal femur and no evidence of pathologic fracture. A small amount of endosteal scalloping of the right proximal femoral shaft was present on the prior PET/CT scans and the appearance was noted to be unchanged. This was felt to most likely be a benign finding. She is seen for a follow-up visit. She continues to have severe pain in her right lower back rating down her right leg. It is now progressed to the point that she is virtually nonambulatory, she has fallen several times. ECOG score is 3. She is having difficulty sleeping because of the pain, particularly when she is lying in bed. She does get some relief with her head elevated. Her appetite is poor. She does not have fever or night sweats. She does not complain of shortness of breath, cough, or chest pain. She is not having abdominal pain now. She has been having nausea. She still has some diarrhea at times. Bladder function has been okay. She does not complain of headache. She does have some numbness in her feet. She has no other focal neurologic symptoms. Her family indicates that she has been having some confusion. Medications: ALPRAZolam 1 (0.5 mg) Tablet Oral daily, Citalopram Hydrobromide 1 Tablet (of 40 mg) Oral daily, Eliquis 1 Tablet (of 2.5 mg) Oral b.i.d., Ertapenem Sodium 1 (1 g) Injection daily, HYDROcodone-Acetaminophen 1 (7.5-325 mg) Tablet Oral q 6 hours PRN, Levemir 20 Units (of 100 Units/mL) Subcutaneous at bedtime, Levothyroxine Sodium 1 (150 mcg) Tablet Oral daily, NovoLOG (100 Units/mL) Subcutaneous Take as Directed, Pantoprazole Sodium 1 Tablet (of 40 mg) Tablet, enteric coated Oral b.i.d., Rosuvastatin Calcium 1 Tablet (of 40 mg) Oral at bedtime Allergies: Penicillins Review of Systems: Constitutional - Her energy is poor, but her activity is primarily limited due to her pain. Her appetite is not good. No fever, night sweats, or hot flashes. ECOG score is 3, ENMT - No sinus congestion/drainage. No mouth sores. No sore throat or difficulty swallowing, Hematologic/Lymphatic - No abnormal bruising or bleeding, Respiratory - No shortness of breath. No cough. No pleuritic pain or hemoptysis, Cardiovascular - No angina pain. No palpitations, Gastrointestinal - She has been having nausea. No heartburn or acid reflux. She still has some diarrhea. No blood in the stool or black stools, Genitourinary (F) - No dysuria or hematuria. No urinary frequency. No urgency or incontinence, Musculoskeletal - She has severe pain in her lower back on the right side rating down her right leg, Integumentary - No skin rash, Neurologic - No headache or dizziness. She has numbness in both feet. No other focal neurologic symptoms. She has been having some confusion, Psychiatric - She has anxiety/depression. She is having difficulty sleeping due to the pain. Vital Signs: Performed on Apr 24, 2020 09:51 Height - 66.00 in Weight - lbs Temperature - 97.6 F (LOW) Pulse - 103 /min (HIGH) Respiration - 24 /min BP - 165/70 mm(hg) (HIGH) O2 Sat - 96 % Pain - 8 Physical Examination: Constitutional - She appears generally weak, Eyes - Sclerae nonicteric. Conjunctivae clear, ENMT - No lesions noted in the oral cavity, Hematologic/Lymphatic - No cervical, clavicular, or axillary adenopathy, Respiratory - Lungs sound clear, Cardiovascular - Heart rhythm is regular. There is a II/ systolic murmur. There is no gallop or rub noted, Abdomen - Soft. Liver and spleen are not enlarged. There is no abdominal mass or ascites noted. There is no inguinal adenopathy, Back/Spine - There is some focal bony tenderness in the upper thoracic spine. There is tenderness in the right sacroiliac area, Extremities - No edema, Neurologic - She does not appear to have any focal neurologic deficit. Impression: 1. 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 2. On 06/04/2019 she underwent exam under anesthesia with cervical biopsy, cystoscopy with biopsy of the bladder, and rigid proctoscopy to 15 cm. Her other medical illnesses include: 3. Hypertension. 4. Type 2 diabetes. 5. Hypothyroidism. 6. Chronic anxiety. She began radiation concurrently with weekly cisplatin chemotherapy on 07/15/2019. She had some nausea and fatigue with the initial chemotherapy treatment, but she was able to tolerate it with acceptable toxicity, and she continued her treatment weekly, completing her 6th infusion of cisplatin on 09/02/2019. She completed radiation on 09/03/2019 to a total dose of 5940 cGy. During her treatment she required growth factor support with Neupogen, and she also required frequent IV hydration. She had unusually severe toxicity from the treatment, as she then continued to have weakness and nausea/anorexia. She developed worsening pancytopenia, significant enough to require transfusion. Her restaging PET/CT on 10/26/2019 showed resolution of the primary cervical mass and interval resolution of bilateral pelvic and left retroperitoneal lymph nodes. There was improvement but residual activity in a right obturator index node. Overall, the findings were felt to be consistent with a partial response to therapy. During follow-up she did show gradual recovery. However, due to her treatment related toxicity she was not able to undergo brachytherapy. On 12/21/2019 she was admitted to the hospital with oral pharyngeal candidiasis in association with hyperglycemia. She had associated dehydration and acute renal injury. She also is having symptoms of rectal fissure. She had symptomatic improvement on treatment with fluconazole and with IV hydration. Following discharge her blood sugar control improved significantly on a combination of Levemir and regular insulin per sliding scale, and she began to gradually taper off dexamethasone. She had recently presented with new pain in the left lower quadrant of the abdomen. CT findings were consistent with sigmoid colon diverticulitis, for which she was started on antibiotic therapy. However, her condition continued to worsen and on 02/14/2020 she was admitted to the hospital with intra-abdominal abscess associated with perforated diverticulum. She improved on IV antibiotic therapy, but she did require PRBC transfusion. She also was found to have positive IFOB. Her apixaban was initially put on hold, but restarted at 2.5 mg twice daily at discharge on 02/20/2020. She continued outpatient antibiotic therapy with ertapenem 1 g IV daily. During follow-up she improved clinically and a repeat CT scan showed complete resolution of the abscess. However, her further clinical course has been complicated by development of severe pain in her right sciatic distribution. A specific underlying cause has not been determined. Thus far there is no definite evidence of metastatic disease by CT scan. Her most recent CT abdomen/pelvis did show evidence of endometrial thickening, but that may just be due to radiation fibrosis. Plan: At least for now she will continue on symptomatic management, as there is no definite evidence of recurrent or metastatic disease. I will go ahead and schedule her for a bone scan. Depending on the findings, she may require further evaluation with MRI. In the meantime, I will have her start meloxicam 15 mg daily I will change her pain medication to the immediate release oxycodone 15 mg to take up to 4 times a day as needed. She also will be given trazodone 50 mg to take 1 or 2 at bedtime. I will request a hospital bed for her, as she does get some pain relief with her head elevated above 30 degrees. She is going to continue follow-up at the pain clinic, and I see no contraindication for her to try a local injection for the pain. She is recommended to stop the apixaban for 2 days prior to any injections. Signed By: Gato Downey M.D. <<Signature on File>>
== END 2020-04-24 09:40 | disposition home or self-care (01) ==
PROVIDERS: PCP Family Medicine; Visit Provider Internal Medicine Medical Oncology
DX: C53.9 Malignant neoplasm of cervix uteri, unspecified (principal); C79.11 Secondary malignant neoplasm of bladder; I10 Essential (primary) hypertension; E11.9 Type 2 diabetes mellitus without complications; E03.9 Hypothyroidism, unspecified; F41.9 Anxiety disorder, unspecified; Z92.3 Personal history of irradiation; M54.41 Lumbago with sciatica, right side; Z79.891 Long term (current) use of opiate analgesic
CPT/HCPCS: 99214

== ENCOUNTER 2020-05-04 11:00 | Outpatient (RCR) | payer MEDICARE, MEDICAID, SELFPAY ==
--- NOTE | 2020-05-04 09:17 | NM_ITS ---
WS: [id number] NUCLEAR MEDICINE BONE SCAN Radiopharmaceutical: 25.8 Tc-99m MDP mCi IV Injection site: Left hand Postinjection imaging delay: 2 hr CLINICAL INFORMATION: CERVICAL CANCER COMPARISON: None. FINDINGS: Bone lesions: There are no osseous lesions suspicious for metastatic disease. Soft tissue contours: Normal. Kidneys: Normal. Other findings: Degenerative type uptake involving both AC joints and both knees. Degenerative type u ptake involving both hips and sacroiliac joints. NM/NM bone scan whole body* [id number] IMPRESSION: No evidence of osseous metastatic disease.
== END 2020-05-04 12:00 | disposition home or self-care (01) ==
LOC: ONCMED 11:00
PROVIDERS: PCP Family Medicine; Visit Provider Internal Medicine Medical Oncology
DX: C53.9 Malignant neoplasm of cervix uteri, unspecified (principal); M54.5 Low back pain; M79.604 Pain in right leg
CPT/HCPCS: 78306; A9561

== ENCOUNTER 2020-05-04 12:11 | Inpatient (IN) | payer MEDICARE, MEDICAID, SELFPAY ==
[2020-05-04] VITALS (13 sets, daily range): BP systolic 62–124; BP diastolic 38–59; PULSE 79–104; RESP 14–22; TEMP 36.6–36.8; O2SAT 91–100; BMI 31.1
--- NOTE | 2020-05-04 13:10 | ECG_ITS ---
[facility] Test Date: 2020-05-04 Pat Name: Sharon Sotelo Department: Room: Gender: Female Baby Attendant: : 1945 Requested By: Mary Slater Order Number: [id number] Reading MD: VARGAS SOARES Measurements Intervals [place] Rate: 89 P: 33 NE: 175 QRS: 47 QRSD: 104 T: 20 QT: 365 QTc: 444 Interpretive Statements SINUS RHYTHM Compared to ECG 04/21/2020 12:00:35 Sinus tachycardia no longer present Right-axis deviation no longer present T-wave abnormality no longer present Possible ischemia no longer present Electronically Signed On 05-04-2020 20:14:34 DISPATCH LEAD by VARGAS SOARES [id number]
--- NOTE | 2020-05-04 13:22 | XRR_ITS ---
PROCEDURE INFORMATION: Exam: XR Chest, 1 View Exam date and time: 05/04/2020 1:37 PM Age: 74 years old Clinical indication: Chest wall pain; Patient HX: Unable to obtain history; Additional info: [place] a pop TECHNIQUE: Imaging protocol: XR of the chest Views: 1 view. COMPARISON: CR XR chest 1V portable [id number] 02/18/2020 2:33 PM FINDINGS: Lungs: There is minimal fibrosis in the left lung base. Otherwise the lungs are clear. Pleural space: Unremarkable. No pleural effusion. No pneumothorax. Heart/Mediastinum: Unremarkable. No cardiomegaly. Bones/joints: Unremarkable. XR/XR chest 1V portable [id number] IMPRESSION: No acute findings.
--- NOTE | 2020-05-04 13:35 | CT_ITS ---
WS: [id number] CT HEAD TECHNIQUE: Noncontrast CT of the head obtained from the skullbase to the vertex. CLINICAL INFORMATION: ams COMPARISON: April 22, 2020 DLP: 782.[address] scans at [facility] use at least one of these dose optimization techniques: automat ed exposure control; mA and/or kV adjustment per patient size (includes targeted exams where dose is matched to clinical indication); or iterative reconstruction. FINDINGS: No evidence of intracranial hemorrhage or mass effect. Ventricular system and basal cisterns are roberto nt. Mild small vessel changes with moderate parenchymal volume loss. No extra-axial fluid collections . No evidence of mass or mass effect. Normal kamara-white differentiation. Paranasal sinuses and mastoid air cells are well aerated. .Normal visualized soft tissues. CT/CT head wo con* [id number] IMPRESSION: 1. No evidence of intracranial hemorrhage or mass effect. 2. Mild small vessel changes. Moderate parenchymal volume loss. 3. No acute intracranial findings.
[2020-05-04] MEDS: sodium chloride 0.9% 1,000 ML 999 ML IV ×2 (13:50→17:10)
[2020-05-04 13:58] LABS: Basophils % 0.7 %; Eosinophils # 0.1 10^3/uL (0.0-0.8); Eosinophils % 1.5 %; Hematocrit 32.5 % (37.0-47.0); Hemoglobin 10.1 g/dL (11.5-15.3); Lymphocytes % 18.4 %; Mean Corpuscular HGB Conc 31.1 g/dL (30.0-36.0); Mean Corpuscular Hemoglobin 29.9 pg (28.0-34.0); Mean Corpuscular Volume 96.2 fL (81-99); Monocytes # 0.8 10^3/uL (0.2-0.9); Monocytes % 13.7 %; Neutrophils # 3.58 10^3/uL (1.8-7.7); Neutrophils % 65.2 %; Nucleated Red Blood Cells % 0 %; Platelet Count 225 10^3/cmm (130-400); Red Blood Count 3.38 10^6/uL (4.1-5.3); Red Cell Distribution Width 14.2 % (12.1-15.1); White Blood Count 5.5 10^3/uL (4.0-10.0)
--- NOTE | 2020-05-04 14:01 | ED_ITS ---
HPI - General Adult General: Chief complaint: General Medical Stated complaint: side pain Time Seen by Provider: 05/04/20 12:51 Source: patient and family Mode of arrival: ambulatory Limitations: no limitations History of Present Illness: HPI narrative: 74-year-old female who has a history of cervical cancer. Patient's daughter states that over the last week she has been having increasing weakness and confusion. Patient just had an increase in her oxycodone dose. Patient here is alert and answer some questions but is quite confused and somnolent. States she has not been drinking much. She is hypotensive here with pressure in the 80s. She had no recent fever or illness. Associated symptoms: Reports confusion; Deny chest pain, dyspnea, nausea, rash or vomiting Review of Systems Const: Denies: fever(s), chills, body aches or change in appetite Eyes: Denies: blurry vision or eye discomfort ENMT: Denies: throat pain or dental pain Card: Denies: chest pain Resp: Denies: dyspnea GI: Denies: abdominal pain, nausea, vomiting or diarrhea : Denies: dysuria Musc: Denies: neck pain or back pain Skin/Breast: Denies: rash Neuro: Reports: weakness in extremities and confusion Psych: Denies: depression Willie/Lymph: Denies: easy bruising All/Imm: Denies: urticaria PFSH ED PFSH: Medical History Anxiety -anxiolytics PRN Cervical cancer, FIGO stage 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 Ybarra and Dr. Downey -has received Cisplatin chemotherapy with noted toxicity including nausea, anorexia, worsening pancytopenia requiring transfusion -pending restaging PET/CT to determine next steps in management -on oral steroids Cholelithiasis Chronic anemia -chronic normocytic anemia -baseline Hg is around 10 -continue to monitor H/H; drop likely dilutional CKD (chronic kidney disease) stage 2, GFR 60-89 ml/min Diabetes mellitus -A1c-6.6 (09/2019) -Accuchecks, ISS, hypoglycemia precautions -hyperglycemia with steroids -consistent carb diet Diverticulitis of large intestine with perforation and abscess without bleeding Gastroesophageal reflux disease -PPI IV Hypertension -normotensive, continue to monitor vital signs -continue to hold oral antihypertensives due to dehydration, renal impairment (on ACEi-HCTZ combination); can resume on d/c Hypothyroidism -on levothyroxine Morbid obesity -BMI-34 kg/m2 Oropharyngeal candidiasis -apparent oral lesions on examination; ongoing odynophagia, dysphagia; symptoms resolved -opportunistic infection in immunocompromised patient -loaded with fluconazole 400 mg x 1, now on 200 mg once daily; due to improvement will switch to PO, plan to treat x 7 days -off IVF hydration; improved oral intake -tolerating GI soft diet -nystatin swish and swallow, magic mouthwash -pain control as needed -appreciate ST evaluation; cleared for regular diet/liquids Rectal fissure -on exam with some intermittent bleeding; no more so far -continue to monitor H/H; drop likely dilutional Surgical History H/O pelvic surgery Cervical biopsy, cystoscopy with biopsy, rigid proctoscopy to 15 cm ([place]) Family History Mother CAD (coronary artery disease) Father Aneurysm brain Sister Cancer breast cancer Family/Other Cancer breast cancer in niece Social History Smoking and tobacco status: never smoked Alcohol intake: never Household members: children Housing: House Physical Exam Const: COMMON NORMALS: no acute distress; negative for patient oriented x3 GENERAL APPEARANCE: lethargic and ill appearing ORIENTATION/CONSCIOUSNESS: Yes lethargic HENMT: COMMON NORMALS: normocephalic and atraumatic HEAD & SCALP: normocephalic and atraumatic Eye: COMMON NORMALS: Equal, round and reactive pupils present and EOMs intact bilaterally PUPIL: Yes Equal, round and reactive pupils present Neck/C-Spine: COMMON NORMALS: full ROM and supple Chest: COMMONS NORMALS: normal inspection of the chest and normal palpation of entire chest wall Resp: COMMON NORMALS: normal respiratory effort, No retractions, No use of accessory muscles and clear to auscultation bilaterally AUSCULTATION: clear to auscultation bilaterally Cardio: COMMON NORMALS: regular rate, regular rhythm and No murmurs present (Cardio) RATE: regular rate RHYTHM: regular rhythm GI: COMMON NORMALS: Normal to inspection, nondistended, normoactive bowel sounds present, Soft to palpation, non-tender and no masses PALPATION: Yes Soft to palpation Extremity: COMMON NORMALS: normal to inspection and full ROM Neuro: COMMON NORMALS: moves all extremities and no focal motor deficits; negative for patient oriented x3 SENSORIUM/ORIENTATION: Yes lethargic and Yes somnolent Psych: COMMON NORMALS: cooperative; negative for mental status grossly normal Skin: COMMON NORMALS: no rashes or lesions noted and no wounds GENERAL SKIN EXAM: no rashes or lesions noted Course Vital Signs: Vital signs: Vital Signs Temperature 98.0 F 05/04/20 12:27 Pulse Rate 91 05/04/20 12:27 Respiratory Rate 16 05/04/20 12:27 Blood Pressure 74/46 05/04/20 12:27 Pulse Oximetry 95 05/04/20 12:27 MDM - General Adult MDM Narrative: Medical decision making narrative: Zander presents here with generalized weakness along with multiple status. I believe this is likely due to her oxycodone. Her blood pressure and mentation improved here after Narcan. Patient does have acute kidney injury and family states she is not been drinking likely due to her lethargy. Patient given IV fluids here. CT of the head here is normal. I spoke to hospitalist and will admit to the ICU here. Lab Data: Labs: Lab Results 05/04/20 05/04/20 05/04/20 Range/Units 13:35 13:35 13:35 WBC 5.5 (4.0-10.0) 10^3/ uL RBC 3.38 L (4.1-5.3) 10^6/u L Hgb 10.1 L (11.5-15.3) g/dL Hct 32.5 L (37.0-47.0) % MCV 96.2 (81-99) fL MCH 29.9 (28.0-34.0) pg MCHC 31.1 (30.0-36.0) g/dL RDW 14.2 (12.1-15.1) % Plt Count 225 (130-400) 10^3/c mm MPV 10.0 (7.4-10.4) fL Neut % (Auto) 65.2 % Lymph % (Auto) 18.4 % [place] % (Auto) 13.7 % Eos % (Auto) 1.5 % Baso % (Auto) 0.7 % Neut # (Auto) 3.58 (1.8-7.7) 10^3/u L Lymph # (Auto) 1.0 (0.8-4.8) 10^3/u L [place] # (Auto) 0.8 (0.2-0.9) 10^3/u L Eos # (Auto) 0.1 (0.0-0.8) 10^3/u L Baso # (Auto) 0.0 (0.0-0.1) 10^3/u L Nucleated RBC % (a uto) 0 % Nucleated RBCs # 0.0 /100WBC PT 16.40 H (12.1-14.9) SECO NDS INR 1.27 H (0.8-1.2) APTT 34.6 (23.9-36.7) SECO NDS Sodium 133 L (136-145) mmol/L Potassium 4.4 (3.5-5.1) mmol/L Chloride 98 (98-107) mmol/L Carbon Dioxide 22 (22-29) mmol/L Anion Gap 17.4 (5-19) BUN 54 H (8-23) mg/dL Creatinine 4.9 H (0.5-0.9) mg/dL GFR Calculation Not Reportable Glucose 107 (65-115) mg/dL Calculated Osmolal ity 291 (285-295) mOsm/k g Lactic Acid (0.5-2.2) mmol/L Calcium 10.3 (8.5-10.5) mg/dL Total Bilirubin 1.0 (0.15-1.2) mg/dL AST 10 (0-32) U/L ALT 7 (0-33) U/L Alkaline Phosphata se 131 H (35-105) IU/L Total Protein 6.9 (6.6-8.7) g/dL Albumin 3.8 (3.5-5.2) g/dL Globulin 3.1 (1.3-4.6) g/dL 05/04/20 Range/Units 13:35 WBC (4.0-10.0) 10^3/ uL RBC (4.1-5.3) 10^6/u L Hgb (11.5-15.3) g/dL Hct (37.0-47.0) % MCV (81-99) fL MCH (28.0-34.0) pg MCHC (30.0-36.0) g/dL RDW (12.1-15.1) % Plt Count (130-400) 10^3/c mm MPV (7.4-10.4) fL Neut % (Auto) % Lymph % (Auto) % [place] % (Auto) % Eos % (Auto) % Baso % (Auto) % Neut # (Auto) (1.8-7.7) 10^3/u L Lymph # (Auto) (0.8-4.8) 10^3/u L [place] # (Auto) (0.2-0.9) 10^3/u L Eos # (Auto) (0.0-0.8) 10^3/u L Baso # (Auto) (0.0-0.1) 10^3/u L Nucleated RBC % (a uto) % Nucleated RBCs # /100WBC PT (12.1-14.9) SECO NDS INR (0.8-1.2) APTT (23.9-36.7) SECO NDS Sodium (136-145) mmol/L Potassium (3.5-5.1) mmol/L Chloride (98-107) mmol/L Carbon Dioxide (22-29) mmol/L Anion Gap (5-19) BUN (8-23) mg/dL Creatinine (0.5-0.9) mg/dL GFR Calculation Glucose (65-115) mg/dL Calculated Osmolal ity (285-295) mOsm/k g Lactic Acid 1.2 (0.5-2.2) mmol/L Calcium (8.5-10.5) mg/dL Total Bilirubin (0.15-1.2) mg/dL AST (0-32) U/L ALT (0-33) U/L Alkaline Phosphata se (35-105) IU/L Total Protein (6.6-8.7) g/dL Albumin (3.5-5.2) g/dL Globulin (1.3-4.6) g/dL Imaging Data^: CT Head: Attestation: I personally reviewed and interpreted this imaging study as follows: Radiologist's impression: [address] [place] [address] CT Scan Report Signed Patient: Sharon Sotelo Unit #: [id number] : 1945 Age/Sex: 74 / F ADM Date: 05/04/20 Loc: ER Room/Bed: Attending Dr: Ordering Provider/Ordering MD: Haroon Martin MD Date of Service: 05/04/20 Procedure(s): CT head wo con* [id number] Accession Number(s): [id number] Report Number: [id number] WS: [id number] CT HEAD TECHNIQUE: Noncontrast CT of the head obtained from the skullbase to the vertex. CLINICAL INFORMATION: ams COMPARISON: April 22, 2020 DLP: 782.[address] scans at [facility] use at least one of these dose optimization techniques: automated exposure control; mA and/or kV adjustment per patient size (includes targeted exams where dose is matched to clinical indication); or iterative reconstruction. FINDINGS: No evidence of intracranial hemorrhage or mass effect. Ventricular system and basal cisterns are patent. Mild small vessel changes with moderate parenchymal volume loss. No extra-axial fluid collections. No evidence of mass or mass effect. Normal kamara-white differentiation. Paranasal sinuses and mastoid air cells are well aerated. .Normal visualized soft tissues. CT/CT head wo con* [id number] IMPRESSION: 1. No evidence of intracranial hemorrhage or mass effect. 2. Mild small vessel changes. Moderate parenchymal volume loss. 3. No acute intracranial findings. CXR: Attestation: I personally reviewed and interpreted this imaging study as follows : Radiologist's impression: [facility] [address] [place] [address] XRay Report Signed Patient: Sharon Sotelo Unit #: [id number] : 1945 Age/Sex: 74 / F ADM Date: 05/04/20 Loc: ER Room/Bed: Attending Dr: Ordering Provider/Ordering MD: Mary Kam [employer] INSPECTOR Date of Service: 05/04/20 Procedure(s): XR chest 1V portable [id number] Accession Number(s): [id number] Report Number: [id number] PROCEDURE INFORMATION: Exam: XR Chest, 1 View Exam date and time: 05/04/2020 1:37 PM Age: 74 years old Clinical indication: Chest wall pain; Patient HX: Unable to obtain history; Additional info: [place] a pop TECHNIQUE: Imaging protocol: XR of the chest Views: 1 view. COMPARISON: CR XR chest 1V portable [id number] 02/18/2020 2:33 PM FINDINGS: Lungs: There is minimal fibrosis in the left lung base. Otherwise the lungs are clear. Pleural space: Unremarkable. No pleural effusion. No pneumothorax. Heart/Mediastinum: Unremarkable. No cardiomegaly. Bones/joints: Unremarkable. XR/XR chest 1V portable [id number] IMPRESSION: No acute findings. EKG Data^: EKG 1: Attestation: I personally reviewed and interpreted this EKG as follows: EKG interpretation date: 05/04/20 EKG interpretation time: 13:40 Interpretation: nsr hr [address] or t wave abnormalities qrs 104 qtc 411 Computer generated interpretation: Chest X-Ray 05/04/20 13:22 IMPRESSION: No acute findings. Head CT 05/04/20 13:35 IMPRESSION: 1. No evidence of intracranial hemorrhage or mass effect. 2. Mild small vessel changes. Moderate parenchymal volume loss. 3. No acute intracranial findings. Critical Care Time Critical Care Time: Critical Care Time: Yes Total Critical Care Time: 35 Attestation: This case had a high probability of a clinically significant, sudden, or life threatening deterioration of this patient's condition which required my full and direct attention, intervention and personal management. Discharge Plan Discharge Admit Provider: La Franco Coding Level of Care Code ED Donor Relations Coordinator for Chg Fwd Exam Comprehensive
[2020-05-04 14:05] LABS: INR 1.27 (0.8-1.2)
[2020-05-04 14:06] LABS: Partial Thromboplastin Time 34.6 SECONDS (23.9-36.7)
[2020-05-04 14:14] LABS: Alanine Aminotransferase 7 U/L (0-33); Albumin Level 3.8 g/dL (3.5-5.2); Alkaline Phosphatase 131 IU/L (35-105); Anion Gap 17.4 (5-19); Aspartate Amino Transferase 10 U/L (0-32); Blood Urea Nitrogen 54 mg/dL (8-23); Calcium 10.3 mg/dL (8.5-10.5); Carbon Dioxide 22 mmol/L (22-29); Chloride 98 mmol/L (98-107); Globulin 3.1 g/dL (1.3-4.6); Glucose 107 mg/dL (65-115); Osmolality Calculated 291 mOsm/kg (285-295); Potassium 4.4 mmol/L (3.5-5.1); Sodium 133 mmol/L (136-145); Total Protein 6.9 g/dL (6.6-8.7)
[2020-05-04 14:15] LABS: Lactic Sepsis W/Reflex 1.2 mmol/L (0.5-2.2)
[2020-05-04] MEDS: naloxone 0.4 mg/ml SDV IVP (14:37)
--- NOTE | 2020-05-04 16:30 | P.HP_ITS ---
Providers/Chief Complaint Admitting Physician: La Franco MD Primary Care Provider: Chapin Keita MD Chief Complaint: side pain History of Present Illness Sharon Sotelo is a 74 year old female with PMHx noted below presents to the ER accompanied by her daughter after having had a bone scan that was scheduled by oncology due to noted difficulty with ambulation, increased generalized weakness and noted confusion. Daughter is not present at bedside during my evaluation in the ER, friend is present at bedside and is able to provide some collateral information. Additional information obtained from review of medical record and ER report. Patient is known to me from admission earlier this year. She has had multiple visits to our facility for various complaints. It seems that she had recently had her pain medications increased due to complaints of right lower extremity and back pain and family is concerned that this may have contributed to the changes in her mental status, increasing difficulty with ambulation and generalized weakness. She lives alone the family has been checking in on her frequently and she does have home health services through [facility]. She is typically alert and oriented. She is laying on the stretcher, in no apparent distress but appears quite fatigued and is very lethargic. She is currently receiving a bolus of IV fluid. She is hypotensive with a systolic blood pressure in the 70s. Work-up so far has revealed a normal white count at 5.5, hemoglobin of 10.1, sodium of 133, BUN of 54, creatinine of 4.9, INR of 1.27, unremarkable findings on CT scan of the head and chest x-ray. Urinalysis is pending. Nursing staff is in the process of placing a Oakley catheter and giving an additional fluid bolus. Levophed has been ordered in case she continues to be hypotensive. Due to concern for possible opiate overdose she received a dose of Narcan with some improvement noted thereafter. She will require further close monitoring of her hemodynamic status, correction of her acute renal impairment and management of acute encephalopathy. Due to hemodynamic instability she will be admitted to ICU. Family denies exposure to any known Covid 19+ individuals and patient has not had any overt respiratory symptoms that they are aware of. Review of Systems General: Reports: ROS unobtainable due to mental status (obtained from family) Const: Reports: change in appetite (significantly diminished appetite) and fatigue Resp: Denies: dyspnea, productive cough or non-productive cough : Reports: oliguria Skin/Breast: Denies: rash Neuro: Reports: difficulty walking and confusion Medications/Allergies Home Medications Medication Instructions Recorded Confirmed Last Taken Type citalopram 40 mg PO DAILY 12/21/19 05/04/20 05/04/20 History levothyroxine 150 mcg PO DAILY 12/21/19 05/04/20 05/04/20 History lorazepam 0.5 mg PO TID PRN 12/21/19 05/04/20 05/04/20 History rosuvastatin [Crestor] 40 mg PO BEDTIME 12/21/19 05/04/20 05/03/20 History nystatin 500,000 unit PO QID #60 ml 12/24/19 05/04/20 Unknown Rx Levemir FlexTouch U-100 Insuln 20 unit SUBCUT BEDTIME 02/14/20 05/04/20 05/03/20 History Eliquis 2.5 mg PO BID 30 Days #60 tab 02/20/20 05/04/20 05/04/20 Rx pantoprazole 40 mg PO BID PRN #0 tab 02/20/20 05/04/20 05/04/20 Rx naloxone 4 mg/actuation nasal spray 4 mg INTRANASAL Q3M PRN #2 each 04/23/20 05/04/20 Unknown Rx furosemide 20 mg PO DAILY 05/04/20 05/04/20 05/04/20 History lisinopril-hydrochlorothiazide 1 tab PO DAILY 05/04/20 05/04/20 05/04/20 History meloxicam 15 mg PO DAILY 05/04/20 05/04/20 05/04/20 History methocarbamol [Robaxin-750] 750 mg PO Q6H PRN 05/04/20 05/04/20 Unknown History naloxegol 25 mg PO QAM PRN 05/04/20 05/04/20 Unknown History oxycodone 15 mg PO Q6H PRN 05/04/20 05/04/20 05/04/20 History potassium chloride 20 meq PO DAILY 05/04/20 05/04/20 05/04/20 History trazodone 100 mg PO BEDTIME 05/04/20 05/04/20 05/03/20 History Allergies Allergy/AdvReac Type Severity Reaction Status Date / Time Penicillins Allergy rash as a Verified 05/04/20 12:30 child PFSH Acute PFSH: Medical History (Updated 05/04/20 @ 17:02 by La Franco MD) Anxiety -anxiolytics PRN Cervical cancer, FIGO stage EVARISTO Cholelithiasis Chronic anemia CKD (chronic kidney disease) stage 2, GFR 60-89 ml/min Diabetes mellitus Diverticulitis of large intestine with perforation and abscess without bleeding Gastroesophageal reflux disease Hypertension Hypothyroidism Morbid obesity -BMI-34 kg/m2 Oropharyngeal candidiasis -apparent oral lesions on examination; ongoing odynophagia, dysphagia; symptoms resolved -opportunistic infection in immunocompromised patient -loaded with fluconazole 400 mg x 1, now on 200 mg once daily; due to improvement will switch to PO, plan to treat x 7 days -off IVF hydration; improved oral intake -tolerating GI soft diet -nystatin swish and swallow, magic mouthwash -pain control as needed -appreciate ST evaluation; cleared for regular diet/liquids Rectal fissure -on exam with some intermittent bleeding; no more so far -continue to monitor H/H; drop likely dilutional Surgical History H/O pelvic surgery Cervical biopsy, cystoscopy with biopsy, rigid proctoscopy to 15 cm ([facility]) Family History Mother CAD (coronary artery disease) Father Aneurysm brain Sister Cancer breast cancer Family/Other Cancer breast cancer in niece Social History Smoking and tobacco status: never smoked Alcohol intake: never Household members: children Housing: House Vitals/I&O/Wt Last Vital Signs Temp 98.0 F 05/04/20 12:27 Pulse 91 05/04/20 12:27 Resp 16 05/04/20 12:27 BP 74/46 05/04/20 12:27 Pulse Ox 95 05/04/20 12:27 Weight last 48 hrs Weight 87.543 kg Physical Exam Const: COMMON NORMALS: no acute distress GENERAL APPEARANCE: cooperative, comfortable and frail appearing ORIENTATION/CONSCIOUSNESS: Yes awake and Yes lethargic OTHER: -appears quite fatigued HENMT: COMMON NORMALS: normocephalic, atraumatic and hearing grossly normal bilaterally HEAD & SCALP: normocephalic and atraumatic MOUTH: moist mucous membranes abnormal Details: parched Eye: COMMON NORMALS: Equal, round and reactive pupils present, EOMs intact bilaterally and conjunctivae normal CONJUNCTIVA: Yes conjunctivae normal PUPIL: Yes Equal, round and reactive pupils present Neck/C-Spine: COMMON NORMALS: full ROM GENERAL: Yes normal visual inspection and Yes trachea midline Resp: COMMON NORMALS: normal respiratory effort, No retractions, No use of accessory muscles and clear to auscultation bilaterally EFFORT & INSPECTION: Yes able to speak in complete sentences, Yes symmetric chest movement and No tachypneic AUSCULTATION: clear to auscultation bilaterally OTHER: -on RA Cardio: COMMON NORMALS: regular rate, regular rhythm, S1 normal heart sound present, S2 normal heart sound present and No murmurs present (Cardio) RATE: regular rate RHYTHM: regular rhythm HEART SOUNDS: S1 normal heart sound p resent and S2 normal heart sound present OTHER: -hypotensive GI: COMMON NORMALS: Normal to inspection, nondistended, normoactive bowel sounds present, Soft to palpation and non-tender PALPATION: Yes Soft to palpation Extremity: COMMON NORMALS: normal to inspection, full ROM, no clubbing, cya nosis or edema and no pedal edema Neuro: COMMON NORMALS: moves all extremities, no focal motor deficits and no sensory deficits noted SENSORIUM/ORIENTATION: Yes lethargic and Yes somnolent Skin: COMMON NORMALS: no rashes or lesions noted, no jaundice, no petechiae and no mottling GENERAL SKIN EXAM: no rashes or lesions noted Data : 05/04/20 13:35 05/04/20 13:35 Micro: Microbiology 05/04/20 13:35 Blood Culture - Preliminary Blood SPECIMEN COLLECTED A&P Assessment and plan (1) Dehydration: -due to poor oral intake -noted hypotension, lethargy clinically; hyponatremia, EFREN -currently receiving IVF bolus, -close monitoring of vital signs -may require pressor support if continued hypotension -strict fall precautions -pending UA, CXR unremarkable, currently afebrile, no leukocytosis, no overt signs of infection -blood cx ordered -no known exposure to COVID-19, no acute respiratory symptoms, low clinical suspicion currently. -telemetry monitoring Status: Acute (2) Acute kidney injury: -secondary to dehydration from poor oral intake -EFREN on CKD stage 2 -IVF hydration -monitor renal function, avoid nephrotoxins, renally dose meds. -baseline Cr is around 1-1.2 -place Oakley catheter for accurate Is & Os; assess daily for removal -hold NSAIDs, ACEI, diuretics Status: Acute (3) Acute encephalopathy: -quite lethargic during my encounter, has been confused per family -concern for higher than tolerated doses of analgesics; recently had oxycodone dose increased; also prescribed trazodone. Per family, pill count is accurate so unlikely to have taken more in quantity than prescribed. Suspect that renal impairment may have caused lingering effects of pain meds during metabolic process -received dose of Narcan with some improvement in ED -strict fall precautions, re-orient as needed Status: Acute (4) Cervical cancer, FIGO stage EVARISTO: -poorly differentiated squamous cell cervical cancer -completed radiation therapy on 09/2019 -follows up with Dr. Ybarra and Dr. Downey; last visit was on 04/29 -off active treatment currently -bone scan with no noted metastatic lesions (done 05/04) -CT head negative Status: Chronic (5) Chronic anemia: -chronic normocytic anemia -baseline Hg is around 10 -monitor H/H Status: Chronic (6) Hypertension: -hypotensive currently, continue to monitor vital signs -hold oral antihypertensives due to dehydration, renal impairment, hypotension Status: Chronic Qualifiers: Hypertension type: essential hypertension Qualified Code(s): I10 - Essential (primary) hypertension (7) Gastroesophageal reflux disease: -resume PPI Status: Chronic Qualifiers: Esophagitis presence: esophagitis presence not specified Qualified Code(s): K21.9 - Gastro-esophageal reflux disease without esophagitis (8) Hypothyroidism: -resume levothyroxine Status: Chronic Qualifiers: Hypothyroidism type: unspecified Qualified Code(s): E03.9 - Hypothyroidism, unspecified (9) Low back pain: -has been following up with pain management -cautious analgesic use in light of hypotension, acute encephalopathy -imaging reviewed Status: Chronic Qualifiers: Back pain laterality: right Chronicity: acute Sciatica laterality: sciatica of right side Sciatica presence: with sciatica Qualified Code(s): M54.41 - Lumbago with sciatica, right side (10) Diabetes mellitus: -A1c-6.6 (09/2019) -Accuchecks, ISS, hypoglycemia precautions -consistent carb diet when PO appropriate; hold scheduled insulin for now Status: Chronic Qualifiers: Diabetes mellitus complication status: without complication Diabetes mellitus fpc insulin use: without fpc use Diabetes mellitus type: type 2 Qualified Code(s): E11.9 - Type 2 diabetes mellitus without complications Additional A&P Information -Obesity: BMI-31 kg/m2 -recently treated for intra-abdominal abscess; course of IV abx then transitioned to oral antibiotics. Follow up imaging shows resolution -hx of RLE DVT; on AC with Eliquis -NPO for now given mental status -GI ppx with PPI -DVT ppx not needed as on Eliquis -Dispo: home, has HH services with [facility] -Code status: FULL code; confirm with daughter -Admit to ICU due to mental status, hypotension Attestations Medical Necessity Statement*: Sharon Sotelo's hospital stay will require greater than 2 midnights for management of symptomatic dehydration, hypotension, acute encephalopathy and acute kidney injury currently requiring aggressive IV fluid hydration, close monitoring of vital signs. Time Spent in Patient Care: Greater than 35 minutes (>than 50% of time spent in counselling and/or direct pt care on unit) . Coding Level of Care Code Acute Watch Assembler for [facility] Fwd Diagnoses Dehydration E86.0 Acute kidney injury N17.9 Acute encephalopathy G93.40 Cervical cancer, FIGO stage EVARISTO C53.9 Chronic anemia D64.9 Hypertension I10 Hypertension type: essential hypertension Gastroesophageal reflux disease K21.9 Esophagitis presence: esophagitis presence not specified Hypothyroidism E03.9 Hypothyroidism type: unspecified Low back pain M54.41 Back pain laterality: right Chronicity: acute Sciatica laterality: sciatica of right side Sciatica presence: with sciatica Diabetes mellitus E11.9 Diabetes mellitus complication status: without complication Diabetes mellitus fpc insulin use: without watermelon inspector use Diabetes mellitus type: type 2
[2020-05-04 18:37] LABS: Urine Color Yellow (Yellow)
[2020-05-04 18:38] LABS: Add Urine Microscopic? YES; Bilirubin Urine Neg (Negative); Blood Urine 2+ (Negative); Glucose Urine UA Norm (Normal); Ketones Urine Negative (Negative); Leukocyte Esterase Urine Negative (Negative); Nitrate Urine Negative (Negative); Protein Urine 1+ (Negative); Specific Gravity, Urine 1.015 (1.005-1.030); Urine Appearance Cloudy (CLEAR); Urobilinogen Urine Norm (Negative); pH Urine 5 (5-7)
[2020-05-04 18:39] LABS: Amorphous Sediment Urine 1+ /hpf; Fine Granular Casts Urine 0-4 /lpf; Hyaline Casts Urine 0-4 /lpf
[2020-05-04 18:40] LABS: Bacteria Urine 1+ /hpf; RBC Urine 0-4 /hpf (0-2); Squamous Epithelial Cell Urine 0-4 /hpf (0-5); WBC Urine 0-4 /hpf (0-5)
[2020-05-04 18:41] LABS: Add Urine Culture? No
[2020-05-04] MEDS: sodium chloride 0.9% 500 ML 999 ML IV (19:01)
--- NOTE | 2020-05-04 19:13 | PC.NURSE ---
Pt given nalaxone via IVP, pt lethargic prior to medication, after medication given pt begins speaking to staff stating I need to go pee and appears more alert. Pt denies any pain at this time only stating I need to go pee now before I have an accident
[2020-05-04] MEDS: apixaban 5 mg Tablet 2.5 MG PO (21:41)
[2020-05-04] MEDS: atorvastatin 40 mg Tablet 80 MG PO (21:41)
[2020-05-04] MEDS: cefTRIAXone 1,000 MG in sodium chloride 0.9% (plus) 50 ML 100 MG IV (21:42)
[2020-05-04] MEDS: dextrose 5%-sod chloride 0.9% 1,000 ML 50 ML IV (21:43)
[2020-05-05] VITALS (162 sets, daily range): BP systolic 66–151; BP diastolic 36–83; PULSE 70–106; RESP 10–28; TEMP 36.7–36.9; O2SAT 89–100
[2020-05-05 03:49] LABS: Basophils % 0.5 %; Eosinophils # 0.1 10^3/uL (0.0-0.8); Eosinophils % 1.8 %; Hematocrit 29.5 % (37.0-47.0); Lymphocytes # 1.1 10^3/uL (0.8-4.8); Lymphocytes % 19.4 %; Mean Corpuscular HGB Conc 30.5 g/dL (30.0-36.0); Mean Corpuscular Hemoglobin 29.5 pg (28.0-34.0); Mean Corpuscular Volume 96.7 fL (81-99); Mean Platelet Volume 10.1 fL (7.4-10.4); Monocytes # 0.7 10^3/uL (0.2-0.9); Monocytes % 13.3 %; Neutrophils # 3.51 10^3/uL (1.8-7.7); Neutrophils % 64.3 %; Nucleated Red Blood Cells % 0 %; Platelet Count 205 10^3/cmm (130-400); Red Blood Count 3.05 10^6/uL (4.1-5.3); Red Cell Distribution Width 14.3 % (12.1-15.1); White Blood Count 5.5 10^3/uL (4.0-10.0)
[2020-05-05 04:02] LABS: Anion Gap 16.9 (5-19); Blood Urea Nitrogen 49 mg/dL (8-23); Calcium 9.4 mg/dL (8.5-10.5); Carbon Dioxide 19 mmol/L (22-29); Chloride 105 mmol/L (98-107); Glucose 128 mg/dL (65-115); Osmolality Calculated 299 mOsm/kg (285-295); Potassium 3.9 mmol/L (3.5-5.1); Sodium 137 mmol/L (136-145)
[2020-05-05 07:18] LABS: Glucose Point of Care 120 mg/dL (70-110)
--- NOTE | 2020-05-05 08:21 | P.PN_ITS ---
Subjective Subjective: Interval history: BP remains low to low-normal, so still on pressor support. Had 1900 mL urine output overnight. Seems to be more alert today. Still quite weak. BP stable throughout the day and able to wean off levophed. Medications: Reviewed: Yes Medication Review Details: Current Medications Generic Name Dose Route Start Last Admin Trade Name Freq PRN Reason Stop Dose Admin Apixaban 2.5 mg 05/04/20 21:07 05/04/20 21:41 Eliquis PO 2.5 mg BID JOAQUÍN Administration Atorvastatin Calci um 80 mg 05/04/20 21:00 05/04/20 21:41 Lipitor PO 80 mg BEDTIME JOAQUÍN Administration Norepinephrine Bit artrate 4 mg 254 mls @ 0 mls/h r 05/04/20 16:45 05/05/20 06:15 / Dextrose IV 4 mcg/min .Q0M JOAQUÍN 15.2 mls/hr Administration Protocol Per Protocol Dextrose/Sodium Ch loride 1,000 mls @ 50 ml s/hr 05/04/20 21:07 05/05/20 06:03 Dextrose 5%-Sod Chloride 0.9% IV Not Given .Q20H JOAQUÍN Ceftriaxone Sodium 1,000 mg/ 50 mls @ 100 mls/ hr 05/04/20 21:30 05/04/20 22:19 Sodium Chloride IV Infused Q24H JOAQUÍN Infusion Protocol Vitals/I&O/Wt Last Vital Signs Temp 98.4 F 05/05/20 05:57 Pulse 84 05/05/20 05:57 Resp 15 05/05/20 05:57 BP 124/50 05/05/20 05:57 Pulse Ox 96 05/05/20 05:57 05/04/20 05/05/20 05/05/20 22:59 06:59 14:59 Intake Total 2688.126 / 2688.126 351.24 / 3039.366 Output Total 1900 / 1900 Balance 2688.126 / 2688.126 -1548.76 / 1139.366 Weight last 48 hrs Weight 87.543 kg Physical Exam Const: COMMON NORMALS: no acute distress and alert GENERAL APPEARANCE: cooperative, comfortable and frail appearing ORIENTATION/CONSCIOUSNESS: Yes awake OTHER: -appears quite fatigued HENMT: COMMON NORMALS: normocephalic, atraumatic and hearing grossly normal bilaterally HEAD & SCALP: normocephalic and atraumatic MOUTH: moist mucous membranes abnormal Details: parched Eye: COMMON NORMALS: Equal, round and reactive pupils present, EOMs intact bilaterally and conjunctivae normal CONJUNCTIVA: Yes conjunctivae normal PUPIL: Yes Equal, round and reactive pupils present Neck/C-Spine: COMMON NORMALS: full ROM GENERAL: Yes normal visual inspection and Yes trachea midline Resp: COMMON NORMALS: normal respiratory effort, No retractions, No use of accessory muscles and clear to auscultation bilaterally EFFORT & INSPECTION: Yes able to speak in complete sentences, Yes symmetric chest movement and No tachypneic AUSCULTATION: clear to auscultation bilaterally OTHER: -on RA Cardio: COMMON NORMALS: regular rate, regular rhythm, S1 normal heart sound present, S2 normal heart sound present and No murmurs present (Cardio) RATE: regular rate RHYTHM: regular rhythm HEART SOUNDS: S1 normal heart sound present and S2 normal heart sound present OTHER: -hypotensive GI: COMMON NORMALS: Normal to inspection, nondistended, normoactive bowel sounds present, Soft to palpation and non-tender PALPATION: Yes Soft to palpation Extremity: COMMON NORMALS: normal to inspection, full ROM, no clubbing, cyanosis or edema and no pedal edema Neuro: COMMON NORMALS: moves all extremities, no focal motor deficits and no sensory deficits noted SENSORIUM/ORIENTATION: Yes alert and Yes Orientation impaired Skin: COMMON NORMALS: no rashes or lesions noted, no jaundice, no petechiae and no mottling GENERAL SKIN EXAM: no rashes or lesions noted Urinary Catheter Management^: Oakley: Cath Placed During This Visit: yes Reason for Continuing Indwelling Catheter: Accurate Measurement of Urinary Output in Critically Ill Patients Urinary Catheter Date of Insertion: 05/04/20 Urinary Catheter Time of Insertion: 16:45 Data : 05/05/20 03:15 05/05/20 03:15 Micro: Microbiology 05/04/20 16:30 Blood Culture - Preliminary Blood SPECIMEN COLLECTED 05/04/20 13:35 Blood Culture - Preliminary Blood SPECIMEN COLLECTED A&P Assessment and plan (1) Dehydration: -due to poor oral intake -noted hypotension, lethargy clinically; hyponatremia, EFREN -on IVF and currently requiring pressor support; wean as tolerated -close monitoring of vital signs -strict fall precautions -UA with noted blood and minimal pyuria, CXR unremarkable, currently afebrile, no leukocytosis, no overt signs of infection. On empiric ceftriaxone -blood cx prelim negative -no known exposure to COVID-19, no acute respiratory symptoms, low clinical suspicion currently. -telemetry monitoring Status: Acute (2) Acute kidney injury: -secondary to dehydration from poor oral intake -EFREN on CKD stage 2 -IVF hydration -continue to monitor renal function, avoid nephrotoxins, renally dose meds. -baseline Cr is around 1-1.2 -placed Oakley catheter for accurate Is & Os; assess daily for removal -hold NSAIDs, ACEI, diuretics Status: Acute (3) Acute encephalopathy: -quite lethargic during my encounter, has been confused per family -concern for higher than tolerated doses of analgesics; recently had oxycodone dose increased; also prescribed trazodone. Per family, pill count is accurate so unlikely to have taken more in quantity than prescribed. Suspect that renal impairment may have caused lingering effects of pain meds during metabolic process -received dose of Narcan with some improvement in ED -strict fall precautions, re-orient as needed Status: Acute (4) Cervical cancer, FIGO stage EVARISTO: -poorly differentiated squamous cell cervical cancer -completed radiation therapy on 09/2019 -follows up with Dr. Ybarra and Dr. Downey; last visit was on 04/29 -off active treatment currently -bone scan with no noted metastatic lesions (done 05/04) -CT head negative Status: Chronic (5) Chronic anemia: -chronic normocytic anemia -baseline Hg is around 10 -continue to monitor H/H Status: Chronic (6) Hypertension: -hypotensive currently, continue to monitor vital signs -continue to hold oral antihypertensives due to dehydration, renal impairment, hypotension Status: Chronic Qualifiers: Hypertension type: essential hypertension Qualified Code(s): I10 - Essential (primary) hypertension (7) Gastroesophageal reflux disease: -continue PPI Status: Chronic Qualifiers: Esophagitis presence: esophagitis presence not specified Qualified Code(s): K21.9 - Gastro-esophageal reflux disease without esophagitis (8) Hypothyroidism: -continue levothyroxine Status: Chronic Qualifiers: Hypothyroidism type: unspecified Qualified Code(s): E03.9 - Hypothyroidism, unspecified (9) Low back pain: -has been following up with pain management -cautious analgesic use in light of hypotension, acute encephalopathy -imaging reviewed Status: Chronic Qualifiers: Back pain laterality: right Chronicity: acute Sciatica laterality: sciatica of right side Sciatica presence: with sciatica Qualified Code(s): M54.41 - Lumbago with sciatica, right side (10) Diabetes mellitus: -A1c-6.6 (09/2019) -Accuchecks, ISS, hypoglycemia precautions -consistent carb diet when PO appropriate; hold scheduled insulin for now Status: Chronic Qualifiers: Diabetes mellitus complication status: without complication Diabetes mellitus fpc insulin use: without adjunct faculty for medical terminology use Diabetes mellitus type: type 2 Qualified Code(s): E11.9 - Type 2 diabetes mellitus without complications Additional A&P Information -Obesity: BMI-31 kg/m2 -recently treated for intra-abdominal abscess; course of IV abx then transitioned to oral antibiotics. Follow up imaging shows resolution -hx of RLE DVT; on AC with Eliquis -NPO for now given mental status -GI ppx with PPI -DVT ppx not needed as on Eliquis -Dispo: home, has services with [facility] -Code status: FULL code -continue ICU care due to mental status, hypotension requiring pressor support Attestations Medical Necessity Statement*: Patient requires hospitalization for continued management of hypotension, dehydration, acute renal impairment, and acute encephalopathy. Time Spent in Patient Care: 16 - 35 minutes (>than 50% of time spent in co unselling and/or direct pt care on unit) . Coding Level of Care Code Acute Telephone Betting Clerk for [facility] Fwd Exam Comprehensive Diagnoses Dehydration E86.0 Acute kidney injury N17.9 Acute encephalopathy G93.40 Cervical cancer, FIGO stage EVARISTO C53.9 Chronic anemia D64.9 Hypertension I10 Hypertension type: essential hypertension Gastroesophageal reflux disease K21.9 Esophagitis presence: esophagitis presence not specified Hypothyroidism E03.9 Hypothyroidism type: unspecified Low back pain M54.41 Back pain laterality: right Chronicity: acute Sciatica laterality: sciatica of right side Sciatica presence: with sciatica Diabetes mellitus E11.9 Diabetes mellitus complication status: without complication Diabetes mellitus fpc insulin use: without adjunct faculty for medical terminology use Diabetes mellitus type: type 2
--- NOTE | 2020-05-05 09:05 | PC.CHAP ---
Pastoral Care Encounter/Spiritual Assessment Type of Contact [] Declined registered nurse ambulatory visit [] Patient/Family/Request visit [] Outpatient visit [] Follow-up visit [] Physician referral [] Code/Alert [x] Routine visit [] Staff referral [] Actively dying [] Patient sleeping [] Family support [] [] Out of room [] Palliative care [] [] Receiving care in room [] Pre-surgical visit [] Trauma [] Long length of stay [] ICU visit [] Other: Relational/Emotional Strength [] Patient feels connected with others/family/visitors/staff [] Distress [] Loneliness/isolation [] Abandonment Spirituality of Patient [] Person of Rebekah [] Attends Denominational of their Rebekah [] Believes in Prayer [] Reads Bible or Bahai materials [] There are Spiritual issues to be addressed Angiography Technologist Interventions [x] Prayer [x] Active listening [x] Non-anxious presence [x] Spiritual/emotional support [] Crisis/trauma care [] Spiritual counseling [] Bereavement support [] Provided bereavement packet [] Provided Bible/devotional materials [] Provided toy/stuffed animal, coloring book to patient or family member [] Provided Communion [] Anointing/[place] [] Salvation [x] Completed spiritual assessment [] Other: Impact on Illness or Injury [] Angry [] Fearful [] Anxious [] Often cries [] Exhaustion [] Unable to work [] Unable to attend muslim [] Unable to walk/stand [] Unable to read [] Unable to drive [] Unable to eat/drink [] Unable to sleep [] Unable to be with family [] Patient intubated [] Other: Summary resting well Time spent with patient 5 min
[2020-05-05] MEDS: apixaban 5 mg Tablet 2.5 MG PO ×2 (09:26→18:11)
[2020-05-05] MEDS: levothyroxine 150 mcg Tablet PO (09:27)
[2020-05-05] MEDS: pantoprazole DR 40 mg Tablet PO ×2 (09:27→18:12)
[2020-05-05 11:24] LABS: Glucose Point of Care 153 mg/dL (70-110)
--- NOTE | 2020-05-05 15:33 | PC.NURSE ---
manual b/p done on right arm. 110/52. atuo cuff transferred to right side 113/51. levophed stopped.
[2020-05-05] MEDS: atorvastatin 40 mg Tablet 80 MG PO (22:27)
[2020-05-05] MEDS: acetaminophen 325 mg Tablet 650 MG PO (22:28)
[2020-05-05] MEDS: cefTRIAXone 1,000 MG in sodium chloride 0.9% (plus) 50 ML 50 MG IV (22:28)
[2020-05-06] VITALS (47 sets, daily range): BP systolic 71–155; BP diastolic 30–73; PULSE 71–104; RESP 12–25; TEMP 36.6–37.1; O2SAT 89–97
[2020-05-06 05:15] LABS: Anion Gap 13.7 (5-19); Blood Urea Nitrogen 40 mg/dL (8-23); Calcium 9.6 mg/dL (8.5-10.5); Carbon Dioxide 21 mmol/L (22-29); Chloride 108 mmol/L (98-107); Glucose 103 mg/dL (65-115); Osmolality Calculated 298 mOsm/kg (285-295); Potassium 3.7 mmol/L (3.5-5.1); Sodium 139 mmol/L (136-145)
[2020-05-06 08:01] LABS: Basophils % 0.5 %; Eosinophils # 0.1 10^3/uL (0.0-0.8); Eosinophils % 1.5 %; Hemoglobin 8.2 g/dL (11.5-15.3); Lymphocytes # 0.6 10^3/uL (0.8-4.8); Lymphocytes % 15.2 %; Mean Corpuscular HGB Conc 30.4 g/dL (30.0-36.0); Mean Corpuscular Hemoglobin 29.7 pg (28.0-34.0); Mean Corpuscular Volume 97.8 fL (81-99); Mean Platelet Volume 10.9 fL (7.4-10.4); Monocytes # 0.5 10^3/uL (0.2-0.9); Monocytes % 12.3 %; Neutrophils # 2.85 10^3/uL (1.8-7.7); Nucleated Red Blood Cells % 0 %; Platelet Count 159 10^3/cmm (130-400); Red Blood Count 2.76 10^6/uL (4.1-5.3); Red Cell Distribution Width 13.9 % (12.1-15.1); White Blood Count 4.1 10^3/uL (4.0-10.0)
[2020-05-06] MEDS: apixaban 5 mg Tablet 2.5 MG PO ×2 (08:47→18:56)
[2020-05-06] MEDS: levothyroxine 150 mcg Tablet PO (08:47)
[2020-05-06] MEDS: pantoprazole DR 40 mg Tablet PO ×2 (08:47→18:56)
--- NOTE | 2020-05-06 09:02 | PM.PN ---
Subjective Subjective: Interval history: Continues to have episodes of hypotension though has been weaned off Levophed, on IV fluid hydration, afebrile, had 500 mL urine output overnight. Noted drop in hemoglobin from 9.1->8.2, noted continued improvement in renal function. Resting quietly in bed, seems to be in good spirits, PT in room, still has RLE pain. Medications: Reviewed: Yes Medication Review Details: Active Medications Generic Name Dose Route Start Last Admin Trade Name Freq PRN Reason Stop Dose Admin Acetaminophen 650 mg 05/04/20 21:07 05/05/20 22:28 Tylenol PO 650 mg Q6H PRN Administration MILD PAIN Acetaminophen 650 mg 05/04/20 21:[address] Q6H PRN MILD PAIN OR INCR EASE TEMP Apixaban 2.5 mg 05/04/20 21:07 05/06/20 08:47 Eliquis PO 2.5 mg BID JOAQUÍN Administration Atorvastatin Calci um 80 mg 05/04/20 21:00 05/05/20 22:27 Lipitor PO 80 mg BEDTIME JOAQUÍN Administration Norepinephrine Bit artrate 4 mg 254 mls @ 0 mls/h r 05/04/20 16:45 05/05/20 15:36 / Dextrose IV 0 mcg/min .Q0M JOAQUÍN 0 mls/hr Titration Protocol Per Protocol Dextrose/Sodium Ch loride 1,000 mls @ 75 ml s/hr 05/04/20 21:07 05/05/20 22:28 Dextrose 5%-Sod Chloride 0.9% IV Infused .[id number] JOAQUÍN Infusion Ceftriaxone Sodium 1,000 mg/ 50 mls @ 100 mls/ hr 05/04/20 21:30 05/06/20 00:14 Sodium Chloride IV Infused Q24H JOAQUÍN Infusion Protocol Levothyroxine Sodi um 150 mcg 05/05/20 09:00 05/06/20 08:47 Synthroid PO 150 mcg DAILY JOAQUÍN Administration Lorazepam 0.5 mg 05/05/20 08:22 Ativan PO TID PRN ANXIETY Morphine Sulfate 2 mg 05/04/20 21:07 Morphine IVP Q4H PRN SEVERE PAIN Ondansetron HCl 4 mg 05/04/20 21:07 Zofran IVP Q6H PRN NAUSEA AND VOMITI NG Oxycodone/Acetamin ophen 1 tab 05/04/20 21:07 Percocet 5-325 M g PO Q4H PRN moderate to sever e pain Pantoprazole Sodiu m 40 mg 05/05/20 09:00 05/06/20 08:47 Protonix PO 40 mg BID JOAQUÍN Administration Penicillins Allergy (Verified 05/04/20 12:30) rash as a child Vitals/I&O/Wt Last Vital Signs Temp 97.8 F 05/06/20 08:00 Pulse 75 05/06/20 08:00 Resp 19 H 05/06/20 08:00 BP 115/45 05/06/20 08:00 Pulse Ox 94 05/06/20 08:00 05/05/20 05/06/20 05/06/20 22:59 06:59 14:59 Intake Total 1252.16 / 1849.96 50 / 1899.96 Output Total 700 / 1900 500 / 2400 Balance 552.16 / -50.04 -450 / -500.04 Weight last 48 hrs Weight 87.543 kg Physical Exam Const: COMMON NORMALS: no acute distress and alert GENERAL APPEARANCE: cooperative, comfortable and frail appearing ORIENTATION/CONSCIOUSNESS: Yes awake OTHER: -resting in bed, pleasant HENMT: COMMON NORMALS: normocephalic, atraumatic, hearing grossly normal bilaterally and moist oral mucous membranes HEAD & SCALP: normocephalic and atraumatic Eye: COMMON NORMALS: Equal, round and reactive pupils present, EOMs intact bilaterally and conjunctivae normal CONJUNCTIVA: Yes conjunctivae normal PUPIL: Yes Equal, round and reactive pupils present Neck/C-Spine: COMMON NORMALS: full ROM GENERAL: Yes normal visual inspection and Yes trachea midline Resp: COMMON NORMALS: normal respiratory effort, No retractions, No use of accessory muscles and clear to auscultation bilaterally EFFORT & INSPECTION: Yes able to speak in complete sentences, Yes symmetric chest movement and No tachypneic AUSCULTATION: clear to auscultation bilaterally Cardio: COMMON NORMALS: regular rate, regular rhythm, S1 normal heart sound present, S2 normal heart sound present and No murmurs present (Cardio) RATE: regular rate RHYTHM: regular rhythm HEART SOUNDS: S1 normal heart sound present and S2 normal heart sound present OTHER: -normotensive GI: COMMON NORMALS: Normal to inspection, nondistended, normoactive bowel sounds present, Soft to palpation and non-tender PALPATION: Yes Soft to palpation : BLADDER/KIDNEY EXAM: Yes catheter in place Catheter type (Female): urethral Extremity: COMMON NORMALS: normal to inspection, full ROM, no clubbing, cyanosis or edema and no pedal edema Neuro: COMMON NORMALS: moves all extremities, no focal motor deficits and no sensory deficits noted SENSORIUM/ORIENTATION: Yes alert and Yes Orientation impaired Skin: COMMON NORMALS: no rashes or lesions noted, no jaundice, no petechiae and no mottling GENERAL SKIN EXAM: no rashes or lesions noted Urinary Catheter Management^: Oakley: Cath Placed During This Visit: yes Reason for Continuing Indwelling Catheter: Accurate Measurement of Urinary Output in Critically Ill Patients Urinary Catheter Date of Insertion: 05/04/20 Urinary Catheter Time of Insertion: 16:45 Data : 05/06/20 04:32 05/06/20 04:32 Micro: Microbiology 05/04/20 16:30 Blood Culture - Preliminary Blood NEGATIVE TO DATE 05/04/20 13:35 Blood Culture - Preliminary Blood NEGATIVE TO DATE A&P Assessment and plan (1) Dehydration: -due to poor oral intake -noted hypotension, lethargy clinically; hyponatremia, EFREN. Mental status is improving, renal function is improving, hyponatremia has resolved -on IVF, weaned off pressor support; wean as tolerated -continue to monitor vital signs -strict fall precautions -UA with noted blood and minimal pyuria, CXR unremarkable, currently afebrile, no leukocytosis, no overt signs of infection. On empiric ceftriaxone -blood cx prelim negative -no known exposure to COVID-19, no acute respiratory symptoms, low clinical suspicion currently. -telemetry monitoring Status: Acute (2) Acute kidney injury: -secondary to dehydration from poor oral intake -EFREN on CKD stage 2 -IVF hydration -continue to monitor renal function, avoid nephrotoxins, renally dose meds. -baseline Cr is around 1-1.2 -placed Oakley catheter for accurate Is & Os; assess daily for removal -continue to hold NSAIDs, ACEI, diuretics Status: Acute (3) Acute encephalopathy: -quite lethargic during my encounter in ED, has been confused per family -concern for higher than tolerated doses of analgesics; recently had oxycodone dose increased; also prescribed trazodone. Per family, pill count is accurate so unlikely to have taken more in quantity than prescribed. Suspect that renal impairment may have caused lingering effects of pain meds during metabolic process -received dose of Narcan with some improvement in ED -strict fall precautions, re-orient as needed Status: Acute (4) Cervical cancer, FIGO stage EVARISTO: -poorly differentiated squamous cell cervical cancer -completed radiation therapy on 09/2019 -follows up with Dr. Ybarra and Dr. Downey; last visit was on 04/29 -off active treatment currently -bone scan with no noted metastatic lesions (done 05/04) -CT head negative Status: Chronic (5) Chronic anemia: -chronic normocytic anemia -baseline Hg is around 10 -continue to monitor H/H; noted drop is likely dilutional Status: Chronic (6) Hypertension: -hypotensive, continue to monitor vital signs -continue to hold oral antihypertensives due to dehydration, renal impairment, hypotension Status: Chronic Qualifiers: Hypertension type: essential hypertension Qualified Code(s): I10 - Essential (primary) hypertension (7) Gastroesophageal reflux disease: -continue PPI Status: Chronic Qualifiers: Esophagitis presence: esophagitis presence not specified Qualified Code(s): K21.9 - Gastro-esophageal reflux disease without esophagitis (8) Hypothyroidism: -continue levothyroxine Status: Chronic Qualifiers: Hypothyroidism type: unspecified Qualified Code(s): E03.9 - Hypothyroidism, unspecified (9) Low back pain: -has been following up with pain management -cautious analgesic use in light of hypotension, acute encephalopathy -imaging reviewed Status: Chronic Qualifiers: Back pain laterality: right Chronicity: acute Sciatica laterality: sciatica of right side Sciatica presence: with sciatica Qualified Code(s): M54.41 - Lumbago with sciatica, right side (10) Diabetes mellitus: -A1c-6.6 (09/2019) -Accuchecks, ISS, hypoglycemia precautions -consistent carb diet when PO appropriate; hold scheduled insulin for now Status: Chronic Qualifiers: Diabetes mellitus complication status: without complication Diabetes mellitus half-way insulin use: without rodent exterminator use Diabetes mellitus type: type 2 Qualified Code(s): E11.9 - Type 2 diabetes mellitus without complications Additional A&P Information -Obesity: BMI-31 kg/m2 -recently treated for intra-abdominal abscess; course of IV abx then transitioned to oral antibiotics. Follow up imaging shows resolution -hx of RLE DVT; on AC with Eliquis -GI soft diet as tolerated -GI ppx with PPI -DVT ppx not needed as on Eliquis -Dispo: home, has HH services with [place] -Code status: FULL code -continue ICU care due to mental status, hypotension requiring close monitoring of hemodynamic status Attestations Medical Necessity Statement*: Patient requires hospitalization for continued management of acute renal impairment, dehydration, on continued IVF hydration, needs continued close monitoring of hemodynamic status. Time Spent in Patient Care: 16 - 35 minutes (>than 50% of time spent in counselling and/or direct pt care on unit). Coding Level of Care Code Acute Linux Admin Engineer for Chg Fwd Exam Comprehensive Diagnoses Dehydration E86.0 Acute kidney injury N17.9 Acute encephalopathy G93.40 Cervical cancer, FIGO stage EVARISTO C53.9 Chronic anemia D64.9 Hypertension I10 Hypertension type: essential hypertension Gastroesophageal reflux disease K21.9 Esophagitis presence: esophagitis presence not specified Hypothyroidism E03.9 Hypothyroidism type: unspecified Low back pain M54.41 Back pain laterality: right Chronicity: acute Sciatica laterality: sciatica of right side Sciatica presence: with sciatica Diabetes mellitus E11.9 Diabetes mellitus complication status: without complication Diabetes mellitus rodent exterminator insulin use: without rodent exterminator use Diabetes mellitus type: type 2
[2020-05-06] MEDS: dextrose 5%-sod chloride 0.9% 1,000 ML 75 ML IV (14:46)
[2020-05-06 18:30] LABS: Glucose Point of Care 122 mg/dL (70-110)
[2020-05-06] MEDS: cefTRIAXone 1,000 MG in sodium chloride 0.9% (plus) 50 ML 100 MG IV (21:05)
[2020-05-06] MEDS: atorvastatin 40 mg Tablet 80 MG PO (21:05)
[2020-05-06 22:22] LABS: Glucose Point of Care 132 mg/dL (70-110)
[2020-05-07] VITALS (41 sets, daily range): BP systolic 110–164; BP diastolic 53–106; PULSE 78–106; RESP 11–29; TEMP 36.7–37.3; O2SAT 90–99
[2020-05-07 03:41] LABS: Hematocrit 27.7 % (37.0-47.0); Hemoglobin 8.6 g/dL (11.5-15.3)
[2020-05-07 04:08] LABS: Anion Gap 13.4 (5-19); Blood Urea Nitrogen 32 mg/dL (8-23); Calcium 9.8 mg/dL (8.5-10.5); Carbon Dioxide 23 mmol/L (22-29); Chloride 108 mmol/L (98-107); Glucose 133 mg/dL (65-115); Osmolality Calculated 301 mOsm/kg (285-295); Potassium 3.4 mmol/L (3.5-5.1); Sodium 141 mmol/L (136-145)
[2020-05-07 07:53] LABS: Glucose Point of Care 135 mg/dL (70-110)
[2020-05-07] MEDS: dextrose 5%-sod chloride 0.9% 1,000 ML 75 ML IV (08:14)
[2020-05-07] MEDS: ondansetron 2 mg/ML SDV 2 mL 4 MG IVP ×2 (08:14→19:30)
--- NOTE | 2020-05-07 09:05 | P.PN_ITS ---
Subjective Subjective: Interval history: BP continues to improve, stable Hg, improving renal function, afebrile, had 600 mL urine output overnight. Still quietly in bed, will discontinue Oakley catheter, was able to have some Ensure this morning. Medications: Reviewed: Yes Medication Review Details: Active Medications Generic Name Dose Route Start Last Admin Trade Name Freq PRN Reason Stop Dose Admin Acetaminophen 650 mg 05/04/20 21:07 05/05/20 22:28 Tylenol PO 650 mg Q6H PRN Administration MILD PAIN Acetaminophen 650 mg 05/04/20 21:07 Tylenol [place] Q6H PRN MILD PAIN OR INCR EASE TEMP Apixaban 2.5 mg 05/04/20 21:07 05/06/20 18:56 Eliquis PO 2.5 mg BID JOAQUÍN Administration Atorvastatin Calci um 80 mg 05/04/20 21:00 05/06/20 21:05 Lipitor PO 80 mg BEDTIME JOAQUÍN Administration Norepinephrine Bit artrate 4 mg 254 mls @ 0 mls/h r 05/04/20 16:45 05/05/20 15:36 / Dextrose IV 0 mcg/min .Q0M JOAQUÍN 0 mls/hr Titration Protocol Per Protocol Dextrose/Sodium Ch loride 1,000 mls @ 75 ml s/hr 05/04/20 21:07 05/07/20 08:14 Dextrose 5%-Sod Chloride 0.9% IV 75 mls/hr .[id number] JOAQUÍN Administration Ceftriaxone Sodium 1,000 mg/ 50 mls @ 100 mls/ hr 05/04/20 21:30 05/06/20 21:05 Sodium Chloride IV 100 mls/hr Q24H JOAQUÍN Administration Protocol Levothyroxine Sodi um 150 mcg 05/05/20 09:00 05/06/20 08:47 Synthroid PO 150 mcg DAILY JOAQUÍN Administration Lorazepam 0.5 mg 05/05/20 08:22 Ativan PO TID PRN ANXIETY Morphine Sulfate 2 mg 05/04/20 21:07 Morphine IVP Q4H PRN SEVERE PAIN Ondansetron HCl 4 mg 05/04/20 21:07 05/07/20 08:14 Zofran IVP 4 mg Q6H PRN Administration NAUSEA AND VOMITI NG Oxycodone/Acetamin ophen 1 tab 05/04/20 21:07 Percocet 5-325 M g PO Q4H PRN moderate to sever e pain Pantoprazole Sodiu m 40 mg 05/05/20 09:00 05/06/20 18:56 Protonix PO 40 mg BID JOAQUÍN Administration Penicillins Allergy (Verified 05/04/20 12:30) rash as a child Vitals/I&O/Wt Last Vital Signs Temp 99.1 F 05/07/20 07:30 Pulse 100 05/07/20 08:00 Resp 18 05/07/20 08:00 BP 164/71 05/07/20 08:00 Pulse Ox 96 05/07/20 08:00 05/06/20 05/07/20 05/07/20 22:59 06:59 14:59 Intake Total 100 / 220 1000 / 1220 300 / 300 Output Total 1600 / 1600 600 / 2200 Balance -1500 / -1380 400 / -980 300 / 300 Physical Exam Const: COMMON NORMALS: no acute distress and alert GENERAL APPEARANCE: cooperative, comfortable and frail appearing ORIENTATION/CONSCIOUSNESS: Yes awake OTHER: -resting in bed, pleasant HENMT: COMMON NORMALS: normocephalic, atraumatic, hearing grossly normal bilaterally and moist oral mucous membranes HEAD & SCALP: normocephalic and atraumatic MOUTH: moist mucous membranes abnormal Details: parched Eye: COMMON NORMALS: Equal, round and reactive pupils present, EOMs intact bilaterally and conjunctivae normal CONJUNCTIVA: Yes conjunctivae normal PUPIL: Yes Equal, round and reactive pupils present Neck/C-Spine: COMMON NORMALS: full ROM GENERAL: Yes normal visual inspection and Yes trachea midline Resp: COMMON NORMALS: normal respiratory effort, No retractions, No use of accessory muscles and clear to auscultation bilaterally EFFORT & INSPECTION: Yes able to speak in complete sentences, Yes symmetric chest movement and No tachypneic AUSCULTATION: clear to auscultation bilaterally OTHER: -on RA Cardio: COMMON NORMALS: regular rate, regular rhythm, S1 normal heart sound present, S2 normal heart sound present and No murmurs present (Cardio) RATE: regular rate RHYTHM: regular rhythm HEART SOUNDS: S1 normal heart sound present and S2 normal heart sound present OTHER: -normotensive GI: COMMON NORMALS: Normal to inspection, nondistended, normoactive bowel sounds present, Soft to palpation and non-tender INSPECTION: Yes central obesity PALPATION: Yes Soft to palpation : BLADDER/KIDNEY EXAM: Yes catheter in place Catheter type (Female): urethral Extremity: COMMON NORMALS: normal to inspection, full ROM, no clubbing, cyanosis or edema and no pedal edema Neuro: COMMON NORMALS: moves all extremities, no focal motor deficits and no sensory deficits noted SENSORIUM/ORIENTATION: Yes alert and Yes Orientation impaired Skin: COMMON NORMALS: no rashes or lesions noted, no jaundice, no petechiae and no mottling GENERAL SKIN EXAM: no rashes or lesions noted Urinary Catheter Management^: Oakley: Cath Placed During This Visit: yes Reason for Continuing Indwelling Catheter: Accurate Measurement of Urinary Output in Critically Ill Patients Urinary Catheter Date of Insertion: 05/04/20 Urinary Catheter Time of Insertion: 16:45 Data : 05/07/20 03:30 05/07/20 03:30 A&P Assessment and plan (1) Dehydration: -due to poor oral intake -noted hypotension, lethargy clinically; hyponatremia, EFREN. Mental status is improving, renal function is improving, hyponatremia has resolved -on IVF, weaned off pressor support; wean as tolerated -continue to monitor vital signs -strict fall precautions -UA with noted blood and minimal pyuria, CXR unremarkable, currently afebrile, no leukocytosis, no overt signs of infection. On empiric ceftriaxone -blood cx prelim negative -no known exposure to COVID-19, no acute respiratory symptoms, low clinical suspicion currently. -telemetry monitoring Status: Acute (2) Acute kidney injury: -secondary to dehydration from poor oral intake -EFREN on CKD stage 2 -IVF hydration -continue to monitor renal function, avoid nephrotoxins, renally dose meds. -baseline Cr is around 1-1.2 -placed Oakley catheter for accurate Is & Os; assess daily for removal -continue to hold NSAIDs, ACEI, diuretics Status: Acute (3) Acute encephalopathy: -quite lethargic during my encounter in ED, has been confused per family -concern for higher than tolerated doses of analgesics; recently had oxycodone dose increased; also prescribed trazodone. Per family, pill count is accurate so unlikely to have taken more in quantity than prescribed. Suspect that renal im pairment may have caused lingering effects of pain meds during metabolic process -received dose of Narcan with some improvement in ED -strict fall precautions, re-orient as needed Status: Acute (4) Cervical cancer, FIGO stage EVARISTO: -poorly differentiated squamous cell cervical cancer -completed radiation therapy on 09/2019 -follows up with Dr. Ybarra and Dr. Downey; last visit was on 04/29 -off active treatment currently -bone scan with no noted metastatic lesions (done 05/04) -CT head negative Status: Chronic (5) Chronic anemia: -chronic normocytic anemia -baseline Hg is around 10 -continue to monitor H/H; noted drop is likely dilutional Status: Chronic (6) Hypertension: -hypotensive, continue to monitor vital signs -continue to hold oral antihypertensives due to dehydration, renal impairment Status: Chronic Qualifiers: Hypertension type: essential hypertension Qualified Code(s): I10 - Essential (primary) hypertension (7) Gastroesophageal reflux disease: -continue PPI Status: Chronic Qualifiers: Esophagitis presence: esophagitis presence not specified Qualified Code(s): K21.9 - Gastro-esophageal reflux disease without esophagitis (8) Hypothyroidism: -continue levothyroxine Status: Chronic Qualifiers: Hypothyroidism type: unspecified Qualified Code(s): E03.9 - H ypothyroidism, unspecified (9) Low back pain: -has been following up with pain management -cautious analgesic use in light of hypotension, acute encephalopathy -imaging reviewed -has also had RLE pain and sciatica. 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 Follow up imaging shows resolution -hx of RLE DVT; on AC with Eliquis -GI soft diet as tolerated; add Glucerna due to poor appetite. Start on marinol due to continued anorexia -GI ppx with PPI -DVT ppx not needed as on Eliquis -Dispo: home, has HH services with [facility] -Code status: FULL code -Transfer to medical surgical floor Attestations Medical Necessity Statement*: Patient requires hospitalization for continued management of acute renal impairment, anorexia, RLE pain and sciatica. Time Spent in Patient Care: 16 - 35 minutes (>than 50% of time spent in counselling and/or direct pt care on unit) . 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 Comprehensive Diagnoses Dehydration E86.0 Acute kidney injury N17.9 Acute encephalopathy G93.40 Cervical cancer, FIGO stage EVARISTO C53.9 Chronic anemia D64.9 Hypertension I10 Hypertension type: essential hypertension Gastroesophageal reflux disease K21.9 Esophagitis presence: esophagitis presence not specified Hypothyroidism E03.9 Hypothyroidism type: unspecified Low back pain M54.41 Back pain laterality: right Chronicity: acute Sciatica laterality: sciatica of right side Sciatica presence: with sciatica Diabetes mellitus E11.9 Diabetes mellitus complication status: without complication 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
[2020-05-07] MEDS: levothyroxine 150 mcg Tablet PO (09:37)
[2020-05-07] MEDS: pantoprazole DR 40 mg Tablet PO ×2 (09:37→19:29)
[2020-05-07] MEDS: apixaban 5 mg Tablet 2.5 MG PO ×2 (09:37→19:30)
[2020-05-07] MEDS: dronabinol 2.5 mg Capsule PO ×2 (09:37→16:13)
[2020-05-07] MEDS: acetaminophen 325 mg Tablet 650 MG PO (11:08)
[2020-05-07 11:35] LABS: Glucose Point of Care 151 mg/dL (70-110)
--- NOTE | 2020-05-07 13:25 | PC.SOCIAL ---
IMM Update Pg.2 of IMM updated. Signed, dated, and timed and placed in chart. Copy provided to patient.
[2020-05-07] MEDS: gabapentin 100 mg Capsule PO ×2 (14:15→21:07)
[2020-05-07 16:49] LABS: Glucose Point of Care 154 mg/dL (70-110)
[2020-05-07] MEDS: oxyCODONE-APAP 5-325 mg Tablet 1 TAB PO (19:29)
[2020-05-07] MEDS: cefTRIAXone 1,000 MG in sodium chloride 0.9% (plus) 50 ML 100 MG IV (21:07)
[2020-05-07] MEDS: atorvastatin 40 mg Tablet 80 MG PO (21:07)
[2020-05-07 21:26] LABS: Glucose Point of Care 136 mg/dL (70-110)
[2020-05-08] VITALS (11 sets, daily range): BP systolic 134–177; BP diastolic 54–78; PULSE 74–89; RESP 12–17; TEMP 36.7–37; O2SAT 92–97
[2020-05-08] MEDS: dextrose 5%-sod chloride 0.9% 1,000 ML 75 ML IV (01:47)
[2020-05-08 05:26] LABS: Hematocrit 29.2 % (37.0-47.0)
[2020-05-08 05:45] LABS: Anion Gap 13.1 (5-19); Blood Urea Nitrogen 21 mg/dL (8-23); Calcium 9.7 mg/dL (8.5-10.5); Carbon Dioxide 23 mmol/L (22-29); Chloride 110 mmol/L (98-107); Glucose 140 mg/dL (65-115); Osmolality Calculated 301 mOsm/kg (285-295); Potassium 3.1 mmol/L (3.5-5.1); Sodium 143 mmol/L (136-145)
[2020-05-08] MEDS: dronabinol 2.5 mg Capsule PO ×2 (10:24→17:45)
[2020-05-08] MEDS: levothyroxine 150 mcg Tablet PO (10:24)
[2020-05-08] MEDS: oxyCODONE-APAP 5-325 mg Tablet 1 TAB PO ×3 (10:24→20:55)
[2020-05-08] MEDS: ondansetron 2 mg/ML SDV 2 mL 4 MG IVP (10:25)
[2020-05-08] MEDS: pantoprazole DR 40 mg Tablet PO ×2 (10:25→17:45)
[2020-05-08] MEDS: apixaban 5 mg Tablet 2.5 MG PO ×2 (10:25→17:45)
[2020-05-08] MEDS: gabapentin 100 mg Capsule PO ×3 (10:26→20:43)
[2020-05-08 11:05] LABS: Glucose Point of Care 165 mg/dL (70-110)
--- NOTE | 2020-05-08 11:55 | XR_ITS ---
WS: [id number] Right ankle, 3 views, 05/08/2020 Clinical Data: R ankle pain Comparison: None. Findings: No fractures or dislocations are seen. The ankle mortise is normal. The talus and calcaneus are unrem arkable. No soft tissue swelling over the medial malleolus is seen. There is an Achilles spur. There is minimal swelling over the lateral malleolus. XR/XR ankle RT min 3V* [id number] Impression: Negative for fracture but there is soft tissue swelling over the lateral malleo yesenia.
--- NOTE | 2020-05-08 11:55 | P.PN_ITS ---
Subjective Subjective: Interval history: Hemodynamically stable, actually noted hypertension, so will resume ACEi. Continued improvement in renal function, will d/c IVF. On RA, afebrile, had 350 mL urine output overnight and 1 BM. Hg remains stable. Complaining of R ankle pain, declined PT this AM. Did have some Glucerna and she is trying to drink some water. Seems unable to weight-bear on the R due to pain and some ankle swelling. Medications: Reviewed: Yes Medication Review Details: Active Medications Generic Name Dose Route Start Last Admin Trade Name Freq PRN Reason Stop Dose Admin Acetaminophen 650 mg 05/04/20 21:07 05/07/20 11:08 Tylenol PO 650 mg Q6H PRN Administration MILD PAIN Acetaminophen 650 mg 05/04/20 21:07 Tylenol NV Q6H PRN MILD PAIN OR INCR EASE TEMP Apixaban 2.5 mg 05/04/20 21:07 05/08/20 10:25 Eliquis PO 2.5 mg BID JOAQUÍN Administration Atorvastatin Calci um 80 mg 05/04/20 21:00 05/07/20 21:07 Lipitor PO 80 mg BEDTIME JOAQUÍN Administration Dronabinol 2.5 mg 05/07/20 10:00 05/08/20 10:24 Marinol PO 2.5 mg BIDAC JOAQUÍN Administration Gabapentin 100 mg 05/07/20 15:00 05/08/20 10:26 Neurontin PO 100 mg TID JOAQUÍN Administration Norepinephrine Bit artrate 4 mg 254 mls @ 0 mls/h r 05/04/20 16:45 05/05/20 15:36 / Dextrose IV 0 mcg/min .Q0M JOAQUÍN 0 mls/hr Titration Protocol Per Protocol Dextrose/Sodium Ch loride 1,000 mls @ 75 ml s/hr 05/04/20 21:07 05/08/20 01:47 Dextrose 5%-Sod Chloride 0.9% IV 75 mls/hr .[id number] JOAQUÍN Administration Ceftriaxone Sodium 1,000 mg/ 50 mls @ 100 mls/ hr 05/04/20 21:30 05/07/20 21:07 Sodium Chloride IV 100 mls/hr Q24H JOAQUÍN Administration Protocol Levothyroxine Sodi um 150 mcg 05/05/20 09:00 05/08/20 10:24 Synthroid PO 150 mcg DAILY JOAQUÍN Administration Lisinopril 20 mg 05/08/20 11:50 Prinivil PO DAILY JOAQUÍN Lorazepam 0.5 mg 05/05/20 08:22 Ativan PO TID PRN ANXIETY Morphine Sulfate 2 mg 05/04/20 21:07 Morphine IVP Q4H PRN SEVERE PAIN Ondansetron HCl 4 mg 05/04/20 21:07 05/08/20 10:25 Zofran IVP 4 mg Q6H PRN Administration NAUSEA AND VOMITI NG Oxycodone/Acetamin ophen 1 tab 05/04/20 21:07 05/08/20 10:24 Percocet 5-325 M g PO 1 tab Q4H PRN Administration moderate to sever e pain Pantoprazole Sodiu m 40 mg 05/05/20 09:00 05/08/20 10:25 Protonix PO 40 mg BID JOAQUÍN Administration Penicillins Allergy (Verified 05/04/20 12:30) rash as a child Vitals/I&O/Wt Last Vital Signs Temp 98.1 F 05/08/20 11:47 Pulse 83 05/08/20 11:47 Resp 16 05/08/20 11:47 BP 147/54 05/08/20 11:47 Pulse Ox 95 05/08/20 11:47 05/07/20 05/08/20 05/08/20 22:59 06:59 14:59 Intake Total 1000 / 1300 Output Total 400 / 1000 250 / 1250 Balance 600 / 300 -250 / 50 Weight last 48 hrs Weight 85.23 kg Weight 83.234 kg Physical Exam Const: COMMON NORMALS: no acute distress, patient oriented x3 and alert GENERAL APPEARANCE: cooperative, comfortable and frail appearing ORIENTATION/CONSCIOUSNESS: Yes awake OTHER: -resting in bed, pleasant HENMT: COMMON NORMALS: normocephalic, atraumatic, hearing grossly normal bilaterally and moist oral mucous membranes HEAD & SCALP: normocephalic and atraumatic MOUTH: moist mucous membranes abnormal Details: parched Eye: COMMON NORMALS: Equal, round and reactive pupils present, EOMs intact bilaterally and conjunctivae normal CONJUNCTIVA: Yes conjunctivae normal PUPIL: Yes Equal, round and reactive pupils present Neck/C-Spine: COMMON NORMALS: full ROM GENERAL: Yes normal visual inspectio n and Yes trachea midline Resp: COMMON NORMALS: normal respiratory effort, No retractions, No use of accessory muscles and clear to auscultation bilaterally EFFORT & INSPECTION: Yes able to speak in complete sentences, Yes symmetric chest movement and No tachypneic AUSCULTATION: clear to auscultation bilaterally OTHER: -on RA Cardio: COMMON NORMALS: regular rate, regular rhythm, S1 normal heart sound present, S2 normal heart sound present and No murmurs present (Cardio) RATE: regular rate RHYTHM: regular rhythm HEART SOUNDS: S1 normal heart sound present and S2 normal heart sound present OTHER: -normotensive GI: COMMON NORMALS: Normal to inspection, nondistended, normoactive bowel sounds present, Soft to palpation and non-tender INSPECTION: Yes central obesity PALPATION: Yes Soft to palpation Extremity: COMMON NORMALS: normal to inspection and full ROM NARRATIVE EXTREMITY EXAM: -some noted R ankle edema, non-pitting Neuro: COMMON NORMALS: patient oriented x3, moves all extremities, no focal motor deficits and no sensory deficits noted SENSORIUM/ORIENTATION: Yes alert Skin: COMMON NORMALS: no rashes or lesions noted, no jaundice, no petechiae and no mottling GENERAL SKIN EXAM: no rashes or lesions noted Urinary Catheter Management^: Oakley: Cath Placed During This Visit: yes, but has since been removed by the nurse Reason for Continuing Indwelling Catheter: Not indwelling catheter Urinary Catheter Date of Insertion: 05/04/20 Urinary Catheter Time of Insertion: 16:45 Date Urinary Catheter Removed: 05/07/20 Time Urinary Catheter Discontinued: 11:24 Data : 05/08/20 04:39 05/08/20 13:51 A&P Assessment and plan (1) Dehydration: -due to poor oral intake -noted hypotension, lethargy clinically; hyponatremia, EFREN. Mental status is improving, renal function is improving, hyponatremia has resolved -d/c IVF, encourage oral intake -continue to monitor vital signs; stable -strict fall precautions -UA with noted blood and minimal pyuria, CXR unremarkable, currently afebrile, no leukocytosis, no overt signs of infection. On empiric ceftriaxone -blood cx prelim negative -no known exposure to COVID-19, no acute respiratory symptoms, low clinical suspicion currently. -telemetry monitoring Status: Acute (2) Acute kidney injury: -secondary to dehydration from poor oral intake -EFREN on CKD stage 2 -d/c IVF hydration -continue to monitor renal function, avoid nephrotoxins, renally dose meds. Renal function consistently improving -baseline Cr is around 1-1.2 -placed Oakley catheter for accurate Is & Os; assess daily for removal -continue to hold NSAIDs, diuretics; resume ACEi due to noted hypertension Status: Acute (3) Acute encephalopathy: -quite lethargic during my encounter in ED, has been confused per family -concern for higher than tolerated doses of analgesics; recently had oxycodone dose increased; also prescribed trazodone. Per family, pill count is accurate so unlikely to have taken more in quantity than prescribed. Suspect that renal impairment may have caused lingering effects of pain meds during metabolic process -received dose of Narcan with some improvement in ED -strict fall precautions, re-orient as needed -mental status has improved Status: Acute (4) Cervical cancer, FIGO stage EVARISTO: -poorly differentiated squamous cell cervical cancer -completed radiation therapy on 09/2019 -follows up with Dr. Ybarra and Dr. Downey; last visit was on 04/29 -off active treatment currently -bone scan with no noted metastatic lesions (done 05/04) -CT head negative Status: Chronic (5) Chronic anemia: -chronic normocytic anemia -baseline Hg is around 10 -continue to monitor H/H; noted drop is likely dilutional Status: Chronic (6) Hypertension: -BP trending up; continue to monitor vital signs -will resume ACEi Status: Chronic Qualifiers: Hypertension type: essential hypertension Qualified Code(s): I10 - E ssential (primary) hypertension (7) Gastroesophageal reflux disease: -continue PPI Status: Chronic Qualifiers: Esophagitis presence: esophagitis presence not specified Qualified Code(s): K21.9 - Gastro-esophageal reflux disease without esophagitis (8) Hypothyroidism: -continue levothyroxine Status: Chronic Qualifiers: Hypothyroidism type: unspecified Qualified Code(s): E03.9 - Hypothyroidism, unspecified (9) Low back pain: -has been following up with pain management -cautious analgesic use in light of hypotension, acute encephalopathy -imaging reviewed -has also had RLE pain and sciatica. May consider addition of gabapentin with improvement in renal function Status: Chronic Qualifiers: Back pain laterality: right Chronicity: acute Sciatica laterality: sciatica of right side Sciatica presence: with sciatica Qualified Code(s): M54.41 - Lumbago with sciatica, right side (10) Diabetes mellitus: -A1c-6.6 (09/2019) -Accuchecks, ISS, hypoglycemia precautions -consistent carb diet when PO appropriate; hold scheduled insulin for now Status: Chronic Qualifiers: Diabetes mellitus complication status: without complication Diabetes mellitus penitentiary insulin use: without penitentiary use Diabetes mellitus type: type 2 Qualified Code(s): E11.9 - Type 2 diabetes mellitus without complications Additional A&P Information -Obesity: BMI-31 kg/m2 -recently treated for intra-abdominal abscess; course of IV abx then transitioned to oral antibiotics. Follow up imaging shows resolution -hx of RLE DVT; on AC with Eliquis -R ankle pain; noted soft tissue swelling on xray, no DVT on venous duplex -GI soft diet as tolerated; added Glucerna due to poor appetite. On marinol due to continued anorexia -GI ppx with PPI -DVT ppx not needed as on Eliquis -Dispo: home, has services with [facility] -Code status: FULL code Attestations Medical Necessity Statement*: Patient requires hospitalization for continued management of acute renal impairment, anorexia. Time Spent in Patient Care: 16 - 35 minutes (>than 50% of time spent in counselling and/or direct pt care on unit) . 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 Comprehensive Diagnoses Dehydration E86.0 Acute kidney injury N17.9 Acute encephalopathy G93.40 Cervical cancer, FIGO stage EVARISTO C53.9 Chronic anemia D64.9 Hypertension I10 Hypertension type: essential hypertension Gastroesophageal reflux disease K21.9 Esophagitis presence: esophagitis presence not specified Hypothyroidism E03.9 Hypothyroidism type: unspecified Low back pain M54.41 Back pain laterality: right Chronicity: acute Sciatica laterality: sciatica of right side Sciatica presence: with sciatica Diabetes mellitus E11.9 Diabetes mellitus complication status: without complication 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
--- NOTE | 2020-05-08 12:19 | PC.CHAP ---
Pastoral Care Encounter/Spiritual Assessment Type of Contact [] Declined merchandise deliverer visit [] Patient/Family/Request visit [] Outpatient visit [xx] Follow-up visit [] Physician referral [] Code/Alert [xx] Routine visit [] Staff referral [] Actively dying [] Patient sleeping [] Family support [] [] Out of room [] Palliative care [] [] Receiving care in room [] Pre-surgical visit [] Trauma [xx] Long length of stay [] ICU visit [] Other: Relational/Emotional Strength [xx] Patient feels connected with others/family/visitors/staff [] Distress [] Loneliness/isolation [] Abandonment Spirituality of Patient [] Person of Rebekah [] Attends Buddhist of their Rebekah [xx] Believes in Prayer [] Reads Bible or Jewish materials [] There are Spiritual issues to be addressed Hand Sign Writer Interventions [xx] Prayer [xx] Active listening [xx] Non-anxious presence [] Spiritual/emotional support [] Crisis/trauma care [] Spiritual counseling [] Bereavement support [] Provided bereavement packet [] Provided Bible/devotional materials [] Provided toy/stuffed animal, coloring book to patient or family member [] Provided Communion [] Anointing/[place] [] Salvation [xx] Completed spiritual assessment [] Other: Impact on Illness or Injury [] Angry [] Fearful [] Anxious [] Often cries [] Exhaustion [] Unable to work [] Unable to attend tenriism [] Unable to walk/stand [] Unable to read [] Unable to drive [] Unable to eat/drink [] Unable to sleep [] Unable to be with family [] Patient intubated [] Other: Summary Pt is elderly and resigned to her situation. She asked for prayer for pain in foot to go away so she can go home. She does not live alone but did not elaborate on her home situation. She was not talkative and just wanted prayer and to go home. Time spent with patient \ 5 minutes Hand Sign Writer Keara Oh
[2020-05-08] MEDS: lisinopril 20 mg Tablet PO (12:35)
[2020-05-08] MEDS: morphine 4 mg/mL SDV 1 mL 2 MG IVP ×2 (12:36→17:57)
--- NOTE | 2020-05-08 13:25 | PC.OT ---
OT treatment attempted twice today. Pt refused both times. Pt educated on benefits of therapy. Will attempt again per plan of care. Co sign: VIOLA Jackson/Kenneth
[2020-05-08 14:23] LABS: Anion Gap 13.2 (5-19); Blood Urea Nitrogen 19 mg/dL (8-23); Calcium 9.5 mg/dL (8.5-10.5); Carbon Dioxide 23 mmol/L (22-29); Chloride 106 mmol/L (98-107); Glucose 137 mg/dL (65-115); Osmolality Calculated 292 mOsm/kg (285-295); Potassium 3.2 mmol/L (3.5-5.1); Sodium 139 mmol/L (136-145)
--- NOTE | 2020-05-08 16:35 | USR_ITS ---
PROCEDURE INFORMATION: Exam: US Duplex Lower Extremity Veins, Bilateral Exam date and time: 05/08/2020 5:05 PM Age: 74 years old Clinical indication: Edema, localized; Lower extremity, bilateral; Additional info: R/O dvt, pain, difficulty with ambulation, some edema TECHNIQUE: Imaging protocol: Real-time duplex ultrasound of the extremities with 2-D kamara scale, color Doppler flow and spectral waveform analysis with image documentation. Complete exam focused on the bilateral lower extremity veins. COMPARISON: US ROR venous duplex [facility] 03/18/2020 3:36 PM FINDINGS: Right deep veins: The common femoral, femoral, proximal profunda femoral, popliteal, anterior tibial, posterior tibial, and peroneal veins are patent without thrombus. Normal compressibility and/or augmentation response. Right superficial veins: Saphenofemoral junction is patent without thrombus. Left deep veins: The common femoral, femoral, proximal profunda femoral, popliteal, anterior tibial, posterior tibial, and peroneal veins are patent without thrombus. Normal compressibility and/or augmentation response. Left superficial veins: Saphenofemoral junction is patent without thrombus. Soft tissues: Unremarkable as visualized. US/CV venous duplex [facility] [id number] IMPRESSION: No evidence for deep venous thrombosis.
[2020-05-08 17:18] LABS: Glucose Point of Care 131 mg/dL (70-110)
[2020-05-08] MEDS: cefTRIAXone 1,000 MG in sodium chloride 0.9% (plus) 50 ML 100 MG IV (20:43)
[2020-05-08] MEDS: atorvastatin 40 mg Tablet 80 MG PO (20:43)
[2020-05-08 21:36] LABS: Glucose Point of Care 107 mg/dL (70-110)
[2020-05-09] VITALS (11 sets, daily range): BP systolic 140–168; BP diastolic 64–74; PULSE 79–92; RESP 16–18; TEMP 36.8–37.2; O2SAT 93–96
[2020-05-09] MEDS: oxyCODONE-APAP 5-325 mg Tablet 1 TAB PO ×5 (02:45→21:40)
[2020-05-09] MEDS: ondansetron 2 mg/ML SDV 2 mL 4 MG IVP ×2 (06:14→15:38)
[2020-05-09 07:08] LABS: Anion Gap 13.9 (5-19); Blood Urea Nitrogen 15 mg/dL (8-23); Calcium 9.5 mg/dL (8.5-10.5); Carbon Dioxide 24 mmol/L (22-29); Chloride 107 mmol/L (98-107); Glucose 119 mg/dL (65-115); Osmolality Calculated 296 mOsm/kg (285-295); Sodium 142 mmol/L (136-145)
[2020-05-09 07:49] LABS: Glucose Point of Care 123 mg/dL (70-110)
--- NOTE | 2020-05-09 08:15 | PC.NURSE ---
Oakley Catheter removed at this time. Patient tolerated well.
[2020-05-09 08:30] LABS: Potassium 2.9 mmol/L (3.5-5.1)
[2020-05-09] MEDS: dronabinol 2.5 mg Capsule PO (08:31)
[2020-05-09] MEDS: gabapentin 100 mg Capsule PO ×3 (08:33→20:00)
[2020-05-09] MEDS: lisinopril 20 mg Tablet PO (08:33)
[2020-05-09] MEDS: apixaban 5 mg Tablet 2.5 MG PO ×2 (08:34→17:44)
[2020-05-09] MEDS: levothyroxine 150 mcg Tablet PO (08:34)
[2020-05-09] MEDS: pantoprazole DR 40 mg Tablet PO ×2 (08:34→17:44)
--- NOTE | 2020-05-09 09:42 | DCPLANNER ---
Pg 2 of IM updated and reviewed with pt. No questions, copy provided.
--- NOTE | 2020-05-09 11:50 | PC.NURSE ---
Spoke with Crystal patient's daughter at this time.
[2020-05-09 11:57] LABS: Glucose Point of Care 139 mg/dL (70-110)
--- NOTE | 2020-05-09 12:17 | PM.PN ---
Subjective Subjective: Interval history: Had 500 mL urine output overnight, continued improvement in renal function with creatinine down to 1.5, remains hemodynamically stable, Oakley catheter discontinued this morning. Had to have IV replaced, will give IV potassium is unlikely to tolerate oral supplementation. Appetite and oral intake remain mediocre. Has not being up or ambulatory due to continued R ankle pain which she describes as sharp, shooting pain all the way to her hip. Medications: Reviewed: Yes Medication Review Details: Active Medications Generic Name Dose Route Start Last Admin Trade Name Freq PRN Reason Stop Dose Admin Acetaminophen 650 mg 05/04/20 21:07 05/07/20 11:08 Tylenol PO 650 mg Q6H PRN Administration MILD PAIN Acetaminophen 650 mg 05/04/20 21:07 Tylenol AR Q6H PRN MILD PAIN OR INCR EASE TEMP Apixaban 2.5 mg 05/04/20 21:07 05/09/20 08:34 Eliquis PO 2.5 mg BID JOAQUÍN Administration Atorvastatin Calci um 80 mg 05/04/20 21:00 05/08/20 20:43 Lipitor PO 80 mg BEDTIME JOAQUÍN Administration Dronabinol 2.5 mg 05/07/20 10:00 05/09/20 08:31 Marinol PO 2.5 mg BIDAC JOAQUÍN Administration Gabapentin 100 mg 05/07/20 15:00 05/09/20 08:33 Neurontin PO 100 mg TID JOAQUÍN Administration Ceftriaxone Sodium 1,000 mg/ 50 mls @ 100 mls/ hr 05/04/20 21:30 05/08/20 20:43 Sodium Chloride IV 100 mls/hr Q24H JOAQUÍN Administration Protocol Lidocaine HCl 5 ml / Potassium 105 mls @ 25 mls/ hr 05/09/20 12:15 Chloride IV 05/09/20 20:14 Q4H JOAQUÍN Levothyroxine Sodi um 150 mcg 05/05/20 09:00 05/09/20 08:34 Synthroid PO 150 mcg DAILY JOAQUÍN Administration Lisinopril 20 mg 05/08/20 11:50 05/09/20 08:33 Prinivil PO 20 mg DAILY JOAQUÍN Administration Lorazepam 0.5 mg 05/05/20 08:22 Ativan PO TID PRN ANXIETY Morphine Sulfate 2 mg 05/04/20 21:07 05/08/20 17:57 Morphine IVP 2 mg Q4H PRN Administration SEVERE PAIN Ondansetron HCl 4 mg 05/04/20 21:07 05/09/20 06:14 Zofran IVP 4 mg Q6H PRN Administration NAUSEA AND VOMITI NG Oxycodone/Acetamin ophen 1 tab 05/04/20 21:07 05/09/20 08:37 Percocet 5-325 M g PO 1 tab Q4H PRN Administration moderate to sever e pain Pantoprazole Sodiu m 40 mg 05/05/20 09:00 05/09/20 08:34 Protonix PO 40 mg BID JOAQUÍN Administration Penicillins Allergy (Verified 05/04/20 12:30) rash as a child Vitals/I&O/Wt Last Vital Signs Temp 98.7 F 05/09/20 11:32 Pulse 84 05/09/20 11:32 Resp 16 05/09/20 11:32 BP 150/69 05/09/20 11:32 Pulse Ox 96 05/09/20 11:32 05/08/20 05/09/20 05/09/20 22:59 06:59 14:59 Intake Total 240 / 360 220 / 220 Output Total 100 / 100 400 / 500 Balance 140 / 260 -400 / -140 220 / 220 Weight last 48 hrs Weight 85.502 kg Weight 85.23 kg Physical Exam Const: COMMON NORMALS: no acute distress, patient oriented x3 and alert GENERAL APPEARANCE: cooperative and frail appearing ORIENTATION/CONSCIOUSNESS: Yes awake OTHER: -resting in bed, pleasant HENMT: COMMON NORMALS: normocephalic, atraumatic, hearing grossly normal bilaterally and moist oral mucous membranes HEAD & SCALP: normocephalic and atraumatic MOUTH: moist mucous membranes abnormal Details: parched Eye: COMMON NORMALS: Equal, round and reactive pupils present, EOMs intact bilaterally and conjunctivae normal CONJUNCTIVA: Yes conjunctivae normal PUPIL: Yes Equal, round and reactive pupils present Neck/C-Spine: COMMON NORMALS: full ROM GENERAL: Yes normal visual inspection and Yes trachea midline Resp: COMMON NORMALS: normal respiratory effort, No retractions, No use of accessory muscles and clear to auscultation bilaterally EFFORT & INSPECTION: Yes able to speak in complete sentences, Yes symmetric chest movement and No tachypneic AUSCULTATION: clear to auscultation bilaterally OTHER: -on RA Cardio: COMMON NORMALS: regular rate, regular rhythm, S1 normal heart sound present, S2 normal heart sound present and No murmurs present (Cardio) RATE: regular rate RHYTHM: regular rhythm HEART SOUNDS: S1 normal heart sound present and S2 normal heart sound present OTHER: -normotensive GI: COMMON NORMALS: Normal to inspection, nondistended, normoactive bowel sounds present, Soft to palpation and non-tender INSPECTION: Yes central obesity PALPATION: Yes Soft to palpation : BLADDER/KIDNEY EXAM: Yes catheter in place Catheter type (Female): urethral Extremity: COMMON NORMALS: normal to inspection and full ROM NARRATIVE EXTREMITY EXAM: -some noted R ankle edema, non-pitting, no apparent effusion, restricted ROM due to pain and edema Neuro: COMMON NORMALS: patient oriented x3, moves all extremities, no focal motor deficits and no sensory deficits noted SENSORIUM/ORIENTATION: Yes alert Skin: COMMON NORMALS: no rashes or lesions noted, no jaundice, no petechiae and no mottling GENERAL SKIN EXAM: no rashes or lesions noted Urinary Catheter Management^: Oakley: Cath Placed During This Visit: yes, but has since been removed by the nurse Reason for Continuing Indwelling Catheter: Not indwelling catheter Urinary Catheter Date of Insertion: 05/04/20 Urinary Catheter Time of Insertion: 16:45 Date Urinary Catheter Removed: 05/07/20 Time Urinary Catheter Discontinued: 11:24 Data : 05/08/20 04:39 05/09/20 18:10 A&P Assessment and plan (1) Dehydration: -due to poor oral intake -noted hypotension, lethargy clinically; hyponatremia, EFREN. Mental status is improving, renal function is improving, hyponatremia has resolved -d/c IVF, encourage oral intake -continue to monitor vital signs; stable -strict fall precautions -UA with noted blood and minimal pyuria, CXR unremarkable, currently afebrile, no leukocytosis, no overt signs of infection. On empiric ceftriaxone -blood cx prelim negative -no known exposure to COVID-19, no acute respiratory symptoms, low clinical suspicion currently. -telemetry monitoring Status: Acute (2) Acute kidney injury: -secondary to dehydration from poor oral intake -EFREN on CKD stage 2 -d/c IVF hydration -continue to monitor renal function, avoid nephrotoxins, renally dose meds. Renal function consistently improving -baseline Cr is around 1-1.2 -placed Oakley catheter for accurate Is & Os; assess daily for removal -continue to hold NSAIDs, diuretics; resume ACEi due to noted hypertension Status: Acute (3) Acute encephalopathy: -quite lethargic during my encounter in ED, has been confused per family -concern for higher than tolerated doses of analgesics; recently had oxycodone dose increased; also prescribed trazodone. Per family, pill count is accurate so unlikely to have taken more in quantity than prescribed. Suspect that renal impairment may have caused lingering effects of pain meds during metabolic process -received dose of Narcan with some improvement in ED -strict fall precautions, re-orient as needed -mental status has improved Status: Acute (4) Cervical cancer, FIGO stage EVARISTO: -poorly differentiated squamous cell cervical cancer -completed radiation therapy on 09/2019 -follows up with Dr. Ybarra and Dr. Downey; last visit was on 04/29 -off active treatment currently -bone scan with no noted metastatic lesions (done 05/04) -CT head negative Status: Chronic (5) Chronic anemia: -chronic normocytic anemia -baseline Hg is around 10 -continue to monitor H/H; noted drop is likely dilutional Status: Chronic (6) Hypertension: -BP trending up; continue to monitor vital signs -will resume ACEi Status: Chronic Qualifiers: Hypertension type: essential hypertension Qualified Code(s): I10 - Essential (primary) hypertension (7) Gastroesophageal reflux disease: -continue PPI Status: Chronic Qualifiers: Esophagitis presence: esophagitis presence not specified Qualified Code(s): K21.9 - Gastro-esophageal reflux disease without esophagitis (8) Hypothyroidism: -continue levothyroxine Status: Chronic Qualifiers: Hypothyroidism type: unspecified Qualified Code(s): E03.9 - Hypothyroidism, unspecified (9) Low back pain: -has been following up with pain management -cautious analgesic use in light of hypotension, acute encephalopathy -imaging reviewed -has also had RLE pain and sciatica. On low dose gabapentin Status: Chronic Qualifiers: Back pain laterality: right Chronicity: acute Sciatica laterality: sciatica of right side Sciatica presence: with sciatica Qualified Code(s): M54.41 - Lumbago with sciatica, right side (10) Diabetes mellitus: -A1c-6.6 (09/2019) -Accuchecks, ISS, hypoglycemia precautions -consistent carb diet when PO appropriate; hold scheduled insulin for now Status: Chronic Qualifiers: Diabetes mellitus complication status: without complication Diabetes mellitus nursing home insulin use: without nursing home use Diabetes mellitus type: type 2 Qualified Code(s): E11.9 - Type 2 diabetes mellitus without complications Additional A&P Information -Obesity: BMI-31 kg/m2 -recently treated for intra-abdominal abscess; course of IV abx then transitioned to oral antibiotics. Follow up imaging shows resolution -hx of RLE DVT; on AC with Eliquis -R ankle pain; noted soft tissue swelling on xray, no DVT on venous duplex, no apparent effusion, already on gabapentin in case there is some degree of neuropathy. Will try on oral steroids in case of acute gout flare but this would be an atypical presentation. -GI soft diet as tolerated; added Glucerna due to poor appetite. On marinol due to continued anorexia, has not made much difference so far -GI ppx with PPI -DVT ppx not needed as on Eliquis -Dispo: home, has services with [place] -Code status: FULL code Attestations Medical Necessity Statement*: Patient requires hospitalization for continued management of acute renal impairment, anorexia, and R ankle pain. Time Spent in Patient Care: 16 - 35 minutes (>than 50% of time spent in counselling and/or direct pt care on unit). Coding Level of Care Code Acute Clinical Application Specialist for g Fwd Exam Comprehensive Diagnoses Dehydration E86.0 Acute kidney injury N17.9 Acute encephalopathy G93.40 Cervical cancer, FIGO stage EVARISTO C53.9 Chronic anemia D64.9 Hypertension I10 Hypertension type: essential hypertension Gastroesophageal reflux disease K21.9 Esophagitis presence: esophagitis presence not specified Hypothyroidism E03.9 Hypothyroidism type: unspecified Low back pain M54.41 Back pain laterality: right Chronicity: acute Sciatica laterality: sciatica of right side Sciatica presence: with sciatica Diabetes mellitus E11.9 Diabetes mellitus complication status: without complication Diabetes mellitus terminal supervisor insulin use: without terminal supervisor use Diabetes mellitus type: type 2
[2020-05-09] MEDS: lidocaine 1% 5 ML in potassium chloride premix 100 ML 25 ML IV ×2 (12:46→17:14)
[2020-05-09] MEDS: sodium chloride 0.9% 1,000 ML 50 ML IV (13:05)
[2020-05-09 17:02] LABS: Glucose Point of Care 121 mg/dL (70-110)
[2020-05-09] MEDS: dronabinol 2.5 mg Capsule 5 MG PO (17:44)
--- NOTE | 2020-05-09 18:31 | PC.NURSE ---
Report to Familia LIFE SKILLS WORKER at tis time. Familia reminded to stop the normal saline as soon as the potassium is completed. Familia verbalized understanding.
--- NOTE | 2020-05-09 18:40 | PC.NURSE ---
End of shift report Patient did eat better today. Discussed with patient and daughter that if patient was going home she needs to be sitting up for meals, to use the bedside commode and to prevent pneumonia. Patient and daughter verbalized understanding.
[2020-05-09 18:45] LABS: Potassium 3.6 mmol/L (3.5-5.1)
[2020-05-09] MEDS: predniSONE 20 mg Tablet 40 MG PO (19:56)
[2020-05-09] MEDS: atorvastatin 40 mg Tablet 80 MG PO (20:00)
[2020-05-09 21:17] LABS: Glucose Point of Care 128 mg/dL (70-110)
[2020-05-09] MEDS: cefTRIAXone 1,000 MG in sodium chloride 0.9% (plus) 50 ML 100 MG IV (21:24)
[2020-05-10] VITALS (7 sets, daily range): BP systolic 148–175; BP diastolic 66–76; PULSE 73–93; RESP 16–18; TEMP 36.9–37.6; O2SAT 94–98; BMI 30.8
[2020-05-10] MEDS: oxyCODONE-APAP 5-325 mg Tablet 1 TAB PO ×2 (04:52→09:34)
[2020-05-10] MEDS: ondansetron 2 mg/ML SDV 2 mL 4 MG IVP (04:56)
[2020-05-10 06:20] LABS: Anion Gap 10.8 (5-19); Blood Urea Nitrogen 14 mg/dL (8-23); Calcium 9.6 mg/dL (8.5-10.5); Carbon Dioxide 25 mmol/L (22-29); Chloride 105 mmol/L (98-107); Creatinine Clr Calc Pharmacy 41.8237; Glucose 182 mg/dL (65-115); Osmolality Calculated 289 mOsm/kg (285-295); Potassium 3.8 mmol/L (3.5-5.1); Sodium 137 mmol/L (136-145)
[2020-05-10 06:27] LABS: Glucose Point of Care 172 mg/dL (70-110)
--- NOTE | 2020-05-10 07:34 | PC.NURSE ---
Notified care nurse Marielena that patient's blood pressure is 175/74 after we just used BSC.
[2020-05-10] MEDS: lisinopril 20 mg Tablet PO (08:13)
[2020-05-10] MEDS: levothyroxine 150 mcg Tablet PO (08:13)
[2020-05-10] MEDS: apixaban 5 mg Tablet 2.5 MG PO ×2 (08:13→17:31)
[2020-05-10] MEDS: pantoprazole DR 40 mg Tablet PO ×2 (08:13→17:27)
[2020-05-10] MEDS: predniSONE 20 mg Tablet 40 MG PO (08:13)
[2020-05-10] MEDS: gabapentin 100 mg Capsule PO ×3 (08:13→21:35)
[2020-05-10] MEDS: dronabinol 2.5 mg Capsule 5 MG PO ×2 (08:20→17:30)
--- NOTE | 2020-05-10 10:45 | P.PN_ITS ---
Subjective Subjective: Interval history: Per nursing staff, is doing much better today, has been able to get up to the bedside commode and actually worked with physical therapy, RLE pain seems to be decreased, required 2 doses of oxycodone overnight, had some cereal with milk for breakfast. Had 400 mL urine output overnight, continued improvement in renal function. Per discussion with PT, ambulated about 20 ft. Updated daughter at bedside in the afternoon. Medications: Reviewed: Yes Medication Review Details: Active Medications Generic Name Dose Route Start Last Admin Trade Name Freq PRN Reason Stop Dose Admin Acetaminophen 650 mg 05/04/20 21:07 05/07/20 11:08 Tylenol PO 650 mg Q6H PRN Administration MILD PAIN Acetaminophen 650 mg 05/04/20 21:07 Tylenol NE Q6H PRN MILD PAIN OR INCR EASE TEMP Apixaban 2.5 mg 05/04/20 21:07 05/10/20 08:13 Eliquis PO 2.5 mg BID JOAQUÍN Administration Atorvastatin Calci um 80 mg 05/04/20 21:00 05/09/20 20:00 Lipitor PO 80 mg BEDTIME JOAQUÍN Administration Dronabinol 5 mg 05/09/20 17:00 05/10/20 08:20 Marinol PO 5 mg BIDAC JOAQUÍN Administration Gabapentin 100 mg 05/07/20 15:00 05/10/20 08:13 Neurontin PO 100 mg TID JOAQUÍN Administration Hydrochlorothiazid e 25 mg 05/10/20 10:40 Hctz PO DAILY JOAQUÍN Ceftriaxone Sodium 1,000 mg/ 50 mls @ 100 mls/ hr 05/04/20 21:30 05/09/20 21:24 Sodium Chloride IV 100 mls/hr Q24H JOAQUÍN Administration Protocol Levothyroxine Sodi um 150 mcg 05/05/20 09:00 05/10/20 08:13 Synthroid PO 150 mcg DAILY JOAQUÍN Administration Lisinopril 20 mg 05/08/20 11:50 05/10/20 08:13 Prinivil PO 20 mg DAILY JOAQUÍN Administration Lorazepam 0.5 mg 05/05/20 08:22 Ativan PO TID PRN ANXIETY Morphine Sulfate 2 mg 05/04/20 21:07 05/08/20 17:57 Morphine IVP 2 mg Q4H PRN Administration SEVERE PAIN Ondansetron HCl 4 mg 05/04/20 21:07 05/10/20 04:56 Zofran IVP 4 mg Q6H PRN Administration NAUSEA AND VOMITI NG Oxycodone/Acetamin ophen 1 tab 05/04/20 21:07 05/10/20 09:34 Percocet 5-325 M g PO 1 tab Q4H PRN Administration moderate to sever e pain Pantoprazole Sodiu m 40 mg 05/05/20 09:00 05/10/20 08:13 Protonix PO 40 mg BID JOAQUÍN Administration Prednisone 40 mg 05/09/20 19:00 05/10/20 08:13 Prednisone PO 40 mg DAILY JOAQUÍN Administration Penicillins Allergy (Verified 05/04/20 12:30) rash as a child Vitals/I&O/Wt Last Vital Signs Temp 98.5 F 05/10/20 07:30 Pulse 93 05/10/20 07:30 Resp 17 05/10/20 09:34 BP 175/74 05/10/20 07:30 Pulse Ox 97 05/10/20 09:34 05/09/20 05/10/20 05/10/20 22:59 06:59 14:59 Intake Total 225 / 445 480 / 480 Output Total 400 / 700 150 / 150 Balance -175 / -255 330 / 330 Weight last 48 hrs Weight 85.502 kg Physical Exam Const: COMMON NORMALS: no acute distress, patient oriented x3 and alert GENERAL APPEARANCE: cooperative and frail appearing ORIENTATION/CONSCIOUSNESS: Yes awake OTHER: -in good spirits HENMT: COMMON NORMALS: normocephalic, atraumatic, hearing grossly normal bilaterally and moist oral mucous membranes HEAD & SCALP: normocephalic and atraumatic MOUTH: moist mucous membranes abnormal Details: parched Eye: COMMON NORMALS: Equal, round and reactive pupils present, EOMs intact bilaterally and conjunctivae normal CONJUNCTIVA: Yes conjunctivae normal PUPIL: Yes Equal, round and reactive pupils present Neck/C-Spine: COMMON NORMALS: full ROM GENERAL: Yes normal visual inspection and Yes trachea midline Resp: COMMON NORMALS: normal respiratory effort, No retractions, No use of accessory muscles and clear to auscultation bilaterally EFFORT & INSPECTION: Yes able to speak in complete sentences, Yes symmetric chest movement and No tachypneic AUSCULTATION: clear to auscultation bilaterally OTHER: -on RA Cardio: COMMON NORMALS: regular rate, regular rhythm, S1 normal heart sound present, S2 normal heart sound present and No murmurs present (Cardio) RATE: regular rate RHYTHM: regular rhythm HEART SOUNDS: S1 normal heart sound present and S2 normal heart sound present OTHER: -normotensive GI: COMMON NORMALS: Normal to inspection, nondistended, normoactive bowel sounds present, Soft to palpation and non-tender INSPECTION: Yes central obesity PALPATION: Yes Soft to palpation : BLADDER/KIDNEY EXAM: Yes catheter in place Catheter type (Female): urethral Extremity: COMMON NORMALS: normal to inspection and full ROM NARRATIVE EXTR EMITY EXAM: -some noted R ankle edema, non-pitting, no apparent effusion, re stricted ROM due to pain and edema, quite tender to palpation Neuro: COMMON NORMALS: patient oriented x3, moves all extremities, no focal motor deficits and no sensory deficits noted SENSORIUM/ORIENTATION: Yes alert Skin: COMMON NORMALS: no rashes or lesions noted, no jaundice, no petechiae and no mottling GENERAL SKIN EXAM: no rashes or lesions noted Urinary Catheter Management^: Oakley: Cath Placed During This Visit: yes, but has since been removed by the nurse Reason for Continuing Indwelling Catheter: Not indwelling catheter Urinary Catheter Date of Insertion: 05/04/20 Urinary Catheter Time of Insertion: 16:45 Date Urinary Catheter Removed: 05/07/20 Time Urinary Catheter Discontinued: 11:24 Data : 05/08/20 04:39 05/10/20 05:08 Micro: Microbiology 05/04/20 16:30 Blood Culture - Final Blood NO GROWTH AFTER 5 DAYS 05/04/20 13:35 Blood Culture - Final Blood NO GROWTH AFTER 5 DAYS A&P Assessment and plan (1) Dehydration: -due to poor oral intake -noted hypotension, lethargy clinically; hyponatremia, EFREN. Mental status is improving, renal function is improving, hyponatremia has resolved -d/c IVF, encourage oral intake, seems to have improved some today -continue to monitor vital signs; stable -strict fall precautions -UA with noted blood and minimal pyuria, CXR unremarkable, currently afebrile, no leukocytosis, no overt signs of infection. On empiric ceftriaxone -blood cx negative -no known exposure to COVID-19, no acute respiratory symptoms, low clinical suspicion currently. -telemetry monitoring Status: Resolved (2) Acute kidney injury: -secondary to dehydration from poor oral intake -EFREN on CKD stage 2 -d/c IVF hydration -continue to monitor renal function, avoid nephrotoxins, renally dose meds. Renal function consistently improving -baseline Cr is around 1-1.2 -placed Oakley catheter for accurate Is & Os; assess daily for removal -continue to hold NSAIDs; continue ACEi and resume HCTZ with continued hypertension and improved renal function Status: Acute (3) Acute encephalopathy: -quite lethargic during my encounter in ED, has been confused per family -concern for higher than tolerated doses of analgesics; recently had oxycodone dose increased; also prescribed trazodone. Per family, pill count is accurate so unlikely to have taken more in quantity than prescribed. Suspect that renal impairment may have caused lingering effects of pain meds during metabolic process -received dose of Narcan with some improvement in ED -strict fall precautions, re-orient as needed -mental status has improved Status: Resolved (4) Cervical cancer, FIGO stage EVARISTO: -poorly differentiated squamous cell cervical cancer -completed radiation therapy on 09/2019 -follows up with Dr. Ybarra and Dr. Downey; last visit was on 04/29 -off active treatment currently -bone scan with no noted metastatic lesions (done 05/04) -CT head negative Status: Chronic (5) Chronic anemia: -chronic normocytic anemia -baseline Hg is around 10 -continue to monitor H/H; noted drop is likely dilutional Status: Chronic (6) Hypertension: -BP trending up; continue to monitor vital signs -on ACEi; resume HCTZ Status: Chronic Qualifiers: Hypertension type: essential hypertension Qualified Code(s): I10 - Essential (primary) hypertension (7) Gastroesophageal reflux disease: -continue PPI Status: Chronic Qualifiers: Esophagitis presence: esophagitis presence not specified Qualified Code(s): K21.9 - Gastro-esophageal reflux disease without esophagitis (8) Hypothyroidism: -continue levothyroxine Status: Chronic Qualifiers: Hypothyroidism type: unspecified Qualified Code(s): E03.9 - Hypothyroidism, unspecified (9) Low back pain: -has been following up with pain management -cautious analgesic use in light of hypotension, acute encephalopathy -imaging reviewed -has also had RLE pain and sciatica. On low dose gabapentin Status: Chronic Qualifiers: Back pain laterality: right Chronicity: acute Sciatica laterality: sciatica of right side Sciatica presence: with sciatica Qualified Code(s): M54.41 - Lumbago with sciatica, right side (10) Diabetes mellitus: -A1c-6.6 (09/2019) -Accuchecks, ISS, hypoglycemia precautions -consistent carb diet when PO appropriate; hold scheduled insulin for now Status: Chronic Qualifiers: Diabetes mellitus complication status: without complication Diabetes mellitus detention insulin use: without exterminator helper termite use Diabetes mellitus type: type 2 Qualified Code(s): E11.9 - Type 2 diabetes mellitus without complications Additional A&P Information -Obesity: BMI-31 kg/m2 -recently treated for intra-abdominal abscess; course of IV abx then transitioned to oral antibiotics. Follow up imaging shows resolution -hx of RLE DVT; on AC with Eliquis -R ankle pain; noted soft tissue swelling on xray, no DVT on venous duplex, no apparent effusion, already on gabapentin in case there is some degree of neuropathy. On oral steroids in case of acute gout flare but this would be an atypical presentation. There seems to be some improvement in pain following initiation of oral steroids, will continue for now -GI soft diet as tolerated; added Glucerna due to poor appetite. On marinol due to continued anorexia, has not made much difference so far -GI ppx with PPI -DVT ppx not needed as on Eliquis -Dispo: home, has services with [place] -Code status: FULL code -would like patient to be more independent and safe in terms of ambulation, have better oral intake before d/c home Attestations Medical Necessity Statement*: Patient requires hospitalization for continued management of acute renal impairment and anorexia, continued pain control and working with therapy for increased safety and independence. Time Spent in Patient Care: 16 - 35 minutes (>than 50% of time spent in counselling and/or direct pt care on unit) . Coding Level of Care Code Acute Business System Consultant for Chg Fwd Exam Comprehensive Diagnoses Dehydration E86.0 Acute kidney injury N17.9 Acute encephalopathy G93.40 Cervical cancer, FIGO stage EVARISTO C53.9 Chronic anemia D64.9 Hypertension I10 Hypertension type: essential hypertension Gastroesophageal reflux disease K21.9 Esophagitis presence: esophagitis presence not specified Hypothyroidism E03.9 Hypothyroidism type: unspecified Low back pain M54.41 Back pain laterality: right Chronicity: acute Sciatica laterality: sciatica of right side Sciatica presence: with sciatica Diabetes mellitus E11.9 Diabetes mellitus complication status: without complication Diabetes mellitus detention insulin use: without detention use Diabetes mellitus type: type 2
[2020-05-10] MEDS: hydroCHLOROthiazide 25 mg Tablet PO (10:53)
[2020-05-10 11:40] LABS: Glucose Point of Care 147 mg/dL (70-110)
[2020-05-10 16:54] LABS: Glucose Point of Care 179 mg/dL (70-110)
--- NOTE | 2020-05-10 18:45 | PC.NURSE ---
pt ate well today. pt was up with physical therapy walking today. pt had some nausea and pain in right leg.
[2020-05-10 21:07] LABS: Glucose Point of Care 167 mg/dL (70-110)
[2020-05-10] MEDS: atorvastatin 40 mg Tablet 80 MG PO (21:35)
[2020-05-10] MEDS: cefTRIAXone 1,000 MG in sodium chloride 0.9% (plus) 50 ML 100 MG IV (21:36)
[2020-05-11] VITALS (11 sets, daily range): BP systolic 153–172; BP diastolic 60–78; PULSE 76–85; RESP 16–20; TEMP 36.9–37.2; O2SAT 95–97
[2020-05-11 05:32] LABS: Anion Gap 12.1 (5-19); Blood Urea Nitrogen 14 mg/dL (8-23); Calcium 9.8 mg/dL (8.5-10.5); Carbon Dioxide 27 mmol/L (22-29); Chloride 104 mmol/L (98-107); Glucose 122 mg/dL (65-115); Osmolality Calculated 292 mOsm/kg (285-295); Potassium 3.1 mmol/L (3.5-5.1); Sodium 140 mmol/L (136-145)
[2020-05-11] MEDS: oxyCODONE-APAP 5-325 mg Tablet 1 TAB PO ×3 (06:43→20:09)
[2020-05-11] MEDS: dronabinol 2.5 mg Capsule 5 MG PO ×2 (06:43→17:05)
[2020-05-11 06:59] LABS: Glucose Point of Care 123 mg/dL (70-110)
[2020-05-11] MEDS: morphine 4 mg/mL SDV 1 mL 2 MG IVP ×2 (09:47→16:01)
[2020-05-11] MEDS: apixaban 5 mg Tablet 2.5 MG PO ×2 (09:50→17:05)
[2020-05-11] MEDS: gabapentin 100 mg Capsule PO ×3 (09:50→20:07)
[2020-05-11] MEDS: lisinopril 20 mg Tablet PO (09:50)
[2020-05-11] MEDS: hydroCHLOROthiazide 25 mg Tablet PO (09:50)
[2020-05-11] MEDS: levothyroxine 150 mcg Tablet PO (09:51)
[2020-05-11] MEDS: pantoprazole DR 40 mg Tablet PO ×2 (09:52→17:05)
[2020-05-11] MEDS: predniSONE 20 mg Tablet 40 MG PO (09:52)
--- NOTE | 2020-05-11 11:17 | P.PN_ITS ---
Subjective Subjective: Interval history: Still complaining of pain in her rt ankle. Other vitals and labs have been reviewed. Medications: Reviewed: Yes Vitals/I&O/Wt Last Vital Signs Temp 98.5 F 05/11/20 07:06 Pulse 83 05/11/20 07:06 Resp 18 05/11/20 09:47 BP 171/76 05/11/20 07:06 Pulse Ox 95 05/11/20 09:47 05/10/20 05/11/20 05/11/20 22:59 06:59 14:59 Intake Total 270 / 990 600 / 600 Output Total 550 / 700 Balance -280 / 290 600 / 600 Weight last 48 hrs Weight 86.721 kg Physical Exam Const: COMMON NORMALS: patient oriented x3 HENMT: COMMON NORMALS: normocephalic, atraumatic, hearing grossly normal bilaterally and external ears normal HEAD & SCALP: normocephalic and atraumatic EXTERNAL EAR: Yes external ears normal Eye: COMMON NORMALS: no scleral icterus GENERAL EYE: appearance normal, both eyes and all related structures Chest: COMMONS NORMALS: normal inspection of the chest and normal palpation of entire chest wall CHEST: Yes Symmetrical chest wall rise Resp: COMMON NORMALS: normal respiratory effort, No retractions, No use of accessory muscles and clear to auscultation bilaterally EFFORT & INSPECTION: Yes symmetric chest movement AUSCULTATION: clear to auscultation bilaterally Cardio: COMMON NORMALS: regular rate, regular rhythm, S1 normal heart sound present, S2 normal heart sound present, No gallops present (Cardio), No murmurs present (Cardio), No rub (Cardio) and Peripheral pulses 2+ throughout RATE: regular rate RHYTHM: regular rhythm HEART SOUNDS: S1 normal heart sound present and S2 normal heart sound present PERIPHERAL PULSES: Peripheral pulses 2+ throughout GI: COMMON NORMALS: Normal to inspection, nondistended, normoactive bowel sounds present, Soft to palpation, non-tender, No hepatosplenomegaly present and no masses AUSCULTATION: Yes normoactive bowel sounds PALPATION: Yes Soft to palpation and Yes No hepatosplenomegaly present RECTAL EXAM: deferred Extremity: COMMON NORMALS: no clubbing, cyanosis or edema and no pedal edema Neuro: COMMON NORMALS: patient oriented x3 Urinary Catheter Management^: Oakley: Cath Placed During This Visit: yes, but has since been removed by the nurse Reason for Continuing Indwelling Catheter: Not indwelling catheter Urinary Catheter Date of Insertion: 05/04/20 Urinary Catheter Time of Insertion: 16:45 Date Urinary Catheter Removed: 05/07/20 Time Urinary Catheter Discontinued: 11:24 Data : 05/08/20 04:39 05/11/20 04:23 A&P Assessment and plan (1) Dehydration: -due to poor oral intake -noted hypotension, lethargy clinically; hyponatremia, EFREN. Mental status is improving, renal function is improving, hyponatremia has resolved -d/c IVF, encourage oral intake, seems to have improved some today -continue to monitor vital signs; stable -strict fall precautions -UA with noted blood and minimal pyuria, CXR unremarkable, currently afebrile, no leukocytosis, no overt signs of infection. On empiric ceftriaxone -blood cx negative -no known exposure to COVID-19, no acute respiratory symptoms, low clinical suspicion currently. -telemetry monitoring Status: Resolved (2) Acute kidney injury: -secondary to dehydration from poor oral intake -EFREN on CKD stage 2 -d/c IVF hydration -continue to monitor renal function, avoid nephrotoxins, renally dose meds. Renal function consistently improving -baseline Cr is around 1-1.2 -placed Oakley catheter for accurate Is & Os; assess daily for removal -continue to hold NSAIDs; continue ACEi and resume HCTZ with continued hypertension and improved renal function Status: Acute (3) Acute encephalopathy: -quite lethargic during my encounter in ED, has been confused per family -concern for higher than tolerated doses of analgesics; recently had oxycodone dose increased; also prescribed trazodone. Per family, pill count is accurate so unlikely to have taken more in quantity than prescribed. Suspect that renal impairment may have caused lingering effects of pain meds during metabolic process -received dose of Narcan with some improvement in ED -strict fall precautions, re-orient as needed -mental status has improved Status: Resolved (4) Cervical cancer, FIGO stage EVARISTO: -poorly differentiated squamous cell cervical cancer -completed radiation therapy on 09/2019 -follows up with Dr. Ybarra and Dr. Downey; last visit was on 04/29 -off active treatment currently -bone scan with no noted metastatic lesions (done 05/04) -CT head negative Status: Chronic (5) Chronic anemia: -chronic normocytic anemia -baseline Hg is around 10 -continue to monitor H/H; noted drop is likely dilutional Status: Chronic (6) Hypertension: -BP trending up; continue to monitor vital signs -on ACEi; resume HCTZ Status: Chronic Qualifiers: Hypertension type: essential hypertension Qualified Code(s): I10 - Essential (primary) hypertension (7) Gastroesophageal reflux disease: -continue PPI Status: Chronic Qualifiers: Esophagitis presence: esophagitis presence not specified Qualified Code(s): K21.9 - Gastro-esophageal reflux disease without esophagitis (8) Hypothyroidism: -continue levothyroxine Status: Chronic Qualifiers: Hypothyroidism type: unspecified Qualified Code(s): E03.9 - Hypothyroidism, unspecified (9) Low back pain: -has been following up with pain management -cautious analgesic use in light of hypotension, acute encephalopathy -imaging reviewed -has also had RLE pain and sciatica. On low dose gabapentin Status: Chronic Qualifiers: Back pain laterality: right Chronicity: acute Sciatica laterality: sciatica of right side Sciatica presence: with sciatica Qualified Code(s): M54.41 - Lumbago with sciatica, right side (10) Diabetes mellitus: -A1c-6.6 (09/2019) -Accuchecks, ISS, hypoglycemia precautions -consistent carb diet when PO appropriate; hold scheduled insulin for now Status: Chronic Qualifiers: Diabetes mellitus complication status: without complication Diabetes mellitus penitentiary insulin use: without senior loss control specialist use Diabetes mellitus type: type 2 Qualified Code(s): E11.9 - Type 2 diabetes mellitus without complications Additional A&P Information -Obesity: BMI-31 kg/m2 -recently treated for intra-abdominal abscess; course of IV abx then transitioned to oral antibiotics. Follow up imaging shows resolution -hx of RLE DVT; on AC with Eliquis -R ankle pain; noted soft tissue swelling on xray, no DVT on venous duplex, no apparent effusion, already on gabapentin in case there is some degree of neuropathy. On oral steroids in case of acute gout flare but this would be an atypical presentation. There seems to be some improvement in pain following initiation of oral steroids, will continue for now -GI soft diet as tolerated; added Glucerna due to poor appetite. On marinol due to continued anorexia, has not made much difference so far -GI ppx with PPI -DVT ppx not needed as on Eliquis -Dispo: home, has HH services with [facility] -Code status: FULL code -would like patient to be more independent and safe in terms of ambulation, have better oral intake before d/c home Attestations Medical Necessity Statement*: Patient requires hospitalization for continued management of acute renal impairment and anorexia, continued pain control Coding Level of Care Code Acute Security Installer for [facility] Fwd Diagnoses Dehydration E86.0 Acute kidney injury N17.9 Acute encephalopathy G93.40 Cervical cancer, FIGO stage EVARISTO C53.9 Chronic anemia D64.9 Hypertension I10 Hypertension type: essential hypertension Gastroesophageal reflux disease K21.9 Esophagitis presence: esophagitis presence not specified Hypothyroidism E03.9 Hypothyroidism type: unspecified Low back pain M54.41 Back pain laterality: right Chronicity: acute Sciatica laterality: sciatica of right side Sciatica presence: with sciatica Diabetes mellitus E11.9 Diabetes mellitus complication status: without complication Diabetes mellitus senior loss control specialist insulin use: without penitentiary use Diabetes mellitus type: type 2
--- NOTE | 2020-05-11 11:35 | DCPLANNER ---
Pg 2 of IM updated and reviewed with pt. No questions, copy provided,.
[2020-05-11 11:48] LABS: Glucose Point of Care 153 mg/dL (70-110)
[2020-05-11 16:56] LABS: Glucose Point of Care 197 mg/dL (70-110)
--- NOTE | 2020-05-11 19:00 | PC.NURSE ---
INTRODUCTION OF STAFF AT THIS TIME, AIDET. PT DENIES PAIN OR NEEDS AT THIS TIME.
[2020-05-11] MEDS: atorvastatin 40 mg Tablet 80 MG PO (20:07)
[2020-05-11] MEDS: cefTRIAXone 1,000 MG in sodium chloride 0.9% (plus) 50 ML 100 MG IV (20:07)
[2020-05-11 20:36] LABS: Glucose Point of Care 193 mg/dL (70-110)
[2020-05-12] VITALS (8 sets, daily range): BP systolic 152–170; BP diastolic 65–88; PULSE 68–74; RESP 16–22; TEMP 36.6–37.7; O2SAT 95–96
[2020-05-12] MEDS: oxyCODONE-APAP 5-325 mg Tablet 1 TAB PO ×3 (02:01→10:22)
[2020-05-12] MEDS: ondansetron 2 mg/ML SDV 2 mL 4 MG IVP ×2 (02:02→12:31)
[2020-05-12] MEDS: dronabinol 2.5 mg Capsule 5 MG PO (06:12)
[2020-05-12 06:31] LABS: Glucose Point of Care 121 mg/dL (70-110)
[2020-05-12] MEDS: hydroCHLOROthiazide 25 mg Tablet PO (09:25)
[2020-05-12] MEDS: apixaban 5 mg Tablet 2.5 MG PO (09:25)
[2020-05-12] MEDS: pantoprazole DR 40 mg Tablet PO (09:25)
[2020-05-12] MEDS: lisinopril 20 mg Tablet PO (09:25)
[2020-05-12] MEDS: gabapentin 100 mg Capsule PO (09:25)
[2020-05-12] MEDS: levothyroxine 150 mcg Tablet PO (09:25)
[2020-05-12] MEDS: predniSONE 20 mg Tablet 40 MG PO (09:25)
[2020-05-12 10:33] LABS: Basophils % 0.1 %; Eosinophils % 0.6 %; Hematocrit 31.1 % (37.0-47.0); Hemoglobin 9.7 g/dL (11.5-15.3); Lymphocytes # 0.7 10^3/uL (0.8-4.8); Lymphocytes % 10.2 %; Mean Corpuscular HGB Conc 31.2 g/dL (30.0-36.0); Mean Corpuscular Hemoglobin 30.1 pg (28.0-34.0); Mean Corpuscular Volume 96.6 fL (81-99); Mean Platelet Volume 9.4 fL (7.4-10.4); Monocytes # 0.7 10^3/uL (0.2-0.9); Monocytes % 9.8 %; Neutrophils # 5.32 10^3/uL (1.8-7.7); Neutrophils % 78.9 %; Nucleated Red Blood Cells % 0 %; Platelet Count 205 10^3/cmm (130-400); Red Blood Count 3.22 10^6/uL (4.1-5.3); Red Cell Distribution Width 13.5 % (12.1-15.1); White Blood Count 6.8 10^3/uL (4.0-10.0)
[2020-05-12 10:54] LABS: Blood Urea Nitrogen 18 mg/dL (8-23); Calcium 9.8 mg/dL (8.5-10.5); Carbon Dioxide 27 mmol/L (22-29); Chloride 101 mmol/L (98-107); Glucose 144 mg/dL (65-115); Osmolality Calculated 294 mOsm/kg (285-295); Sodium 140 mmol/L (136-145)
[2020-05-12 11:05] LABS: Creatinine Clr Calc Pharmacy 48.2843
--- NOTE | 2020-05-12 11:16 | P.DS_ITS ---
Discharge Providers Date of Admission: 05/04/20 15:40 Date of Discharge: May 12, 2020 Attending Provider at Admission: La Franco MD Attending Provider at Discharge: Roderick Farias MD Primary Care Provider: Chapin Keita MD Diagnoses at Discharge Discharge Diagnosis (1) Dehydration: Status: Resolved (2) Acute kidney injury: Status: Resolved (3) Acute encephalopathy: Status: Resolved (4) Cervical cancer, FIGO stage EVARISTO: Status: Chronic (5) Chronic anemia: Status: Chronic (6) Hypertension: Status: Chronic Qualifiers: Hypertension type: essential hypertension Qualified Code(s): I10 - Essential (primary) hypertension (7) Gastroesophageal reflux disease: Status: Chronic Qualifiers: Esophagitis presence: esophagitis presence not specified Qualified Code(s): K21.9 - Gastro-esophageal reflux disease without esophagitis (8) Hypothyroidism: Status: Chronic Qualifiers: Hypothyroidism type: unspecified Qualified Code(s): E03.9 - Hypothyroidism, unspecified (9) Low back pain: Status: Chronic Qualifiers: Back pain laterality: right Chronicity: acute Sciatica laterality: sciatica of right side Sciatica presence: with sciatica Qualified Code(s): M54.41 - Lumbago with sciatica, right side (10) Diabetes mellitus: Status: Chronic Qualifiers: Diabetes mellitus complication status: without complication Diabetes mellitus longterm insulin use: without termination clerk use Diabetes mellitus type: type 2 Qualified Code(s): E11.9 - Type 2 diabetes mellitus without complications Reason for Visit Reason for Visit: side pain Hospital Course Hospital Course 74 year old female with PMHx of Cervical cancer, FIGO stage EVARISTO, HTN, Hypothyroidism, chronic anemia, DM , RLE DVT; on AC with Eliquis , Chronic low back pain likely 2/2 to siatica, was admitted for dehydration , EFREN on CKD as well ac encehalopathy likey 2/2 to oxycodon increased dose.She was kept on I.V Hydration to which her EFREN responded at the time of discharge her SCR was at baseline ( 1.1 ) from admission SCR of 4.9. Her encephalopathy was resolved at the time of discharge,she was AO *3 She was complaining of R ankle pain; noted soft tissue swelling on xray, no DVT on venous duplex, no apparent effusion, she was on gabapentin in case there is some degree of neuropathy,she was started om oral steroids while inpatient in case of acute gout flare but this would be an atypical presentation.Pain was improving with steriods.She was discharged on oral steroids 20 mg for 5 days. She responded well to the medical management and was discharged home in stable condition. Imaging Study : C.T head without Contrast : No evidence of intracranial hemorrhage or mass effect. Cultures : Blood Culture : No Growth Physical Exam Const: COMMON NORMALS: patient oriented x3 HENMT: COMMON NORMALS: normocephalic, atraumatic, hearing grossly normal bilaterally and external ears normal HEAD & SCALP: normocephalic and atraumatic EXTERNAL EAR: Yes external ears normal Eye: COMMON NORMALS: no scleral icterus GENERAL EYE: appearance normal, both eyes and all related structures Chest: COMMONS NORMALS: normal inspection of the chest and normal palpation of entire chest wall CHEST: Yes Symmetrical chest wall rise Resp: COMMON NORMALS: normal respiratory effort, No retractions, No use of accessory muscles and clear to auscultation bilaterally EFFORT & INSPECTION: Yes symmetric chest movement AUSCULTATION: clear to auscultation bilaterally Cardio: COMMON NORMALS: regular rate, regular rhythm, S1 normal heart sound present, S2 normal heart sound present, No gallops present (Cardio), No murmurs present (Cardio), No rub (Cardio) and Peripheral pulses 2+ throughout RATE: regular rate RHYTHM: regular rhythm HEART SOUNDS: S1 normal heart sound present and S2 normal heart sound present PERIPHERAL PULSES: Peripheral pulses 2+ throughout GI: COMMON NORMALS: Normal to inspection, nondistended, normoactive bowel sounds present, Soft to palpation, non-tender, No hepatosplenomegaly present and no masses AUSCULTATION: Yes normoactive bowel sounds PALPATION: Yes Soft to palpation and Yes No hepatosplenomegaly present RECTAL EXAM: deferred Extremity: COMMON NORMALS: no clubbing, cyanosis or edema and no pedal edema Neuro: COMMON NORMALS: patient oriented x3 Urinary Catheter Management^: Oakley: Cath Placed During This Visit: yes, but has since been removed by the nurse Reason for Continuing Indwelling Catheter: Not indwelling catheter Urinary Catheter Date of Insertion: 05/04/20 Urinary Catheter Time of Insertion: 16:45 Date Urinary Catheter Removed: 05/07/20 Time Urinary Catheter Discontinued: 11:24 Discharge Data Data Completed and Pending: Completed Studies During Hospitalization Category Date Time Status CT head wo con* 7 0450 Urgent Cat Scan 05/04/20 13:35 Completed XR ankle RT min 3 V* [id number] Routine Exams 05/08/20 11:55 Completed XR chest 1V caro ble [id number] Stat Exams 05/04/20 13:22 [place] [id number] Routin e Ultrasound 05/08/20 16:35 Completed Labs from last 24 hours 05/12/20 05/12/20 05/12/20 09:39 09:39 06:26 WBC 6.8 RBC 3.22 L Hgb 9.7 L Hct 31.1 L MCV 96.6 MCH 30.1 MCHC 31.2 RDW 13.5 Plt Count 205 MPV 9.4 Neut % (Auto) 78.9 Lymph % (Auto) 10.2 Humphreys % (Auto) 9.8 Eos % (Auto) 0.6 Baso % (Auto) 0.1 Neut # (Auto) 5.32 Lymph # (Auto) 0.7 L Humphreys # (Auto) 0.7 Eos # (Auto) 0.0 Baso # (Auto) 0.0 Nucleated RBC % (a uto) 0 Nucleated RBCs # 0.0 Sodium 140 Potassium 3.0 L Chloride 101 Carbon Dioxide 27 Anion Gap 15.0 BUN 18 Creatinine 1.1 H GFR Calculation Not Reportable Glucose 144 H POC Glucose 121 Calculated Osmolal ity 294 Calcium 9.8 05/11/20 05/11/20 05/11/20 20:31 16:54 11:42 WBC RBC Hgb Hct MCV MCH MCHC RDW Plt Count MPV Neut % (Auto) Lymph % (Auto) Humphreys % (Auto) Eos % (Auto) Baso % (Auto) Neut # (Auto) Lymph # (Auto) Humphreys # (Auto) Eos # (Auto) Baso # (Auto) Nucleated RBC % (a uto) Nucleated RBCs # Sodium Potassium Chloride Carbon Dioxide Anion Gap BUN Creatinine GFR Calculation Glucose POC Glucose 193 197 153 Calculated Osmolal ity Calcium Vitals: Last Vital Signs Temp 97.9 F 05/12/20 07:33 Pulse 71 05/12/20 07:33 Resp 18 05/12/20 10:22 BP 152/66 05/12/20 07:33 Pulse Ox 95 05/12/20 10:22 Discharge Plan Discharge Patient Disposition: Home Condition: Stable Prescriptions: New prednisone 20 mg tablet 20 mg PO DAILY Qty: 5 RF: 0 dronabinol 5 mg capsule 5 mg PO TID PRN (Reason: nausea and vomiting) Qty: 14 RF: 0 gabapentin 100 mg capsule 100 mg PO Q8H Qty: 30 RF: 0 Continued naloxone 4 mg/actuation spray,non-aerosol 4 mg INTRANASAL Q3M PRN (Reason: opioid overdose) Qty: 2 RF: 0 Levemir FlexTouch U-100 Insuln 100 unit/mL (3 mL) Insulin Pen 20 unit SUBCUT BEDTIME RF: 0 pantoprazole 20 mg tablet,delayed release (DR/EC) 40 mg PO BID PRN (Reason: stomach acid/heartburn) Qty: 0 RF: 0 Eliquis 5 mg Tablet 2.5 mg PO BID 30 Days Qty: 60 RF: 0 citalopram 40 mg tablet 40 mg PO DAILY RF: 0 levothyroxine 150 mcg tablet 150 mcg PO DAILY RF: 0 lorazepam 1 mg tablet 0.5 mg PO TID PRN (Reason: Nausea) RF: 0 rosuvastatin [Crestor] 40 mg tablet 40 mg PO BEDTIME RF: 0 trazodone 50 mg tablet 100 mg PO BEDTIME RF: 0 potassium chloride 10 mEq tablet extended release 20 meq PO DAILY RF: 0 lisinopril-hydrochlorothiazide 20-25 mg tablet 1 tab PO DAILY RF: 0 Robaxin-750 750 mg tablet 750 mg PO Q6H PRN (Reason: Pain) RF: 0 oxycodone 5 mg tablet 15 mg PO Q6H PRN (Reason: pain) RF: 0 naloxegol 25 mg tablet 25 mg PO QAM PRN (Reason: Constipation) RF: 0 Held furosemide 20 mg tablet 20 mg PO DAILY RF: 0 Hold Instructions: Resume on 05/19/20. Discontinued nystatin 100,000 unit/mL Suspension 500,000 unit PO QID Qty: 60 RF: 0 meloxicam 15 mg tablet 15 mg PO DAILY RF: 0 Discharge Orders: Discharge Order (Routine); Ordered 05/12/20 Ordered By: Roderick Farias Referrals: [facility] [Outside] Gato Downey MD [Hospitalist] - 05/21/20 8:00 am (Please keep appointment with Dr. Downey after discharge.) Alfonzo David MD [Physician] - 05/21/20 1:00 pm Discharge Diet: Low Salt Discharge Activity: Increase activity as tolerated Patient Instructions: Back Pain, Dehydration - Adult, Prednisone (By mouth), Dronabinol (By mouth), Gabapentin (By mouth), Low Sodium Diet, Acute Kidney Injury (DC) Discharge Attestations Time Spent in Discharge Care*: greater than 30 min Specific Discharge Activities: educating patient, educating and/or supporting family/caregiver, discussing with pcp/other providers, discussing with rn case management/social workers/dc planners, documenting/other paperwork and evaluating patient/reviewing data Status at Discharge: Cognitive status at discharge: cognitively intact , Behavioral status at discharge: cooperative , Functional status at discharge: independent ambulation Overall status at discharge: patient is back to baseline Quality Metrics Clinical Quality Measures During this hospital stay, did patient experience: None Coding Level of Care Code Acute Math Tutor for [facility] Fwd Diagnoses Dehydration E86.0 Acute kidney injury N17.9 Acute encephalopathy G93.40 Cervical cancer, FIGO stage EVARISTO C53.9 Chronic anemia D64.9 Hypertension I10 Hypertension type: essential hypertension Gastroesophageal reflux disease K21.9 Esophagitis presence: esophagitis presence not specified Hypothyroidism E03.9 Hypothyroidism type: unspecified Low back pain M54.41 Back pain laterality: right Chronicity: acute Sciatica laterality: sciatica of right side Sciatica presence: with sciatica Diabetes mellitus E11.9 Diabetes mellitus complication status: without complication Diabetes mellitus termination clerk insulin use: without longterm use Diabetes mellitus type: type 2
== END 2020-05-12 15:15 | disposition home or self-care (01) | DRG 682 ==
LOC: ER 13:55 → ICU 16:16 → MEDSURG 05-07 16:42
PROVIDERS: Nurse Practitioner Family; Admitting Provider Family Medicine; Emergency Provider Emergency Medicine; PCP Family Medicine; Visit Provider Internal Medicine
DX: N17.9 Acute kidney failure, unspecified (principal); G92 Toxic encephalopathy; E87.1 Hypo-osmolality and hyponatremia; E86.0 Dehydration; I95.9 Hypotension, unspecified; F41.9 Anxiety disorder, unspecified; C53.9 Malignant neoplasm of cervix uteri, unspecified; K80.20 Calculus of gallbladder without cholecystitis without obstruction; D63.1 Anemia in chronic kidney disease; E11.22 Type 2 diabetes mellitus with diabetic chronic kidney disease; I12.9 Hypertensive chronic kidney disease with stage 1 through stage 4 chronic kidney disease, or unspecified chronic kidney disease; N18.2 Chronic kidney disease, stage 2 (mild); K21.9 Gastro-esophageal reflux disease without esophagitis; E03.9 Hypothyroidism, unspecified; E66.01 Morbid (severe) obesity due to excess calories; Z68.31 Body mass index [BMI] 31.0-31.9, adult; T40.2X5A Adverse effect of other opioids, initial encounter; Z92.3 Personal history of irradiation; M54.41 Lumbago with sciatica, right side; M79.661 Pain in right lower leg; M25.571 Pain in right ankle and joints of right foot; M79.89 Other specified soft tissue disorders; Z79.01 Long term (current) use of anticoagulants; Z79.891 Long term (current) use of opiate analgesic; E11.42 Type 2 diabetes mellitus with diabetic polyneuropathy
CPT/HCPCS: 12345; 36415; 36416; 51702; 70450; 71045; 73610; 78306; 80048; 80053; 81001; 82962; 83605; 84132; 84550; 85014; 85018; 85025; 85610; 85730; 87040; 93005; 93970; 96375; 97110; 97116; 97161; 97166; 97530; 97535; 99284; A9561; J0696; J2270; J2310; J2405; J3480; J7030; J7040; J7512; Q0167

== ENCOUNTER 2020-05-20 10:37 | Emergency (ER) | payer MEDICARE, MEDICAID, SELFPAY ==
[2020-05-20 10:48] VITALS: BP 57/36; PULSE 85; RESP 18; TEMP 36.7; O2SAT 98; BMI 28.8
--- NOTE | 2020-05-20 11:07 | XR_ITS ---
WS: [id number] Exam: XR chest 1V portable [id number] Date/Time of Exam: 05/20/2020 11:11 AM Reason For Exam: dyspnea/cough Comparison 05/04/2020. Findings: The lungs are clear and fully expanded. Costophrenic angles are sharp. No infiltrates. Bronchovascula r relief appears normal. Cardiac silhouette is unremarkable. Bony elements are intact. XR/XR chest 1V portable [id number] IMPRESSION: Unremarkable chest radiograph.
[2020-05-20 11:18] LABS: Basophils % 0.3 %; Eosinophils # 0.1 10^3/uL (0.0-0.8); Eosinophils % 1.4 %; Hematocrit 32.9 % (37.0-47.0); Hemoglobin 10.1 g/dL (11.5-15.3); Lymphocytes # 1.2 10^3/uL (0.8-4.8); Lymphocytes % 16.1 %; Mean Corpuscular HGB Conc 30.7 g/dL (30.0-36.0); Mean Corpuscular Hemoglobin 30.1 pg (28.0-34.0); Mean Corpuscular Volume 97.9 fL (81-99); Mean Platelet Volume 9.6 fL (7.4-10.4); Monocytes # 0.7 10^3/uL (0.2-0.9); Monocytes % 8.7 %; Neutrophils # 5.63 10^3/uL (1.8-7.7); Neutrophils % 73.1 %; Nucleated Red Blood Cells % 0 %; Platelet Count 190 10^3/cmm (130-400); Red Blood Count 3.36 10^6/uL (4.1-5.3); Red Cell Distribution Width 14.5 % (12.1-15.1); White Blood Count 7.7 10^3/uL (4.0-10.0)
--- NOTE | 2020-05-20 11:30 | W.ED.WEAKNES ---
HPI - Weakness General: Chief complaint: Weakness Stated complaint: LOW BP/TROUBLE PEEING Time Seen by Provider: 05/20/20 11:00 History of Present Illness: HPI Narrative: 74-year-old female who presents to the emergency room with complaint of generally not feeling well and weakness with lower blood pressure. She was recently hospitalized with dehydration and acute kidney injury and encephalopathy. She has chronic anemia hypertension and reflux disease as well as a history of cervical cancer. Additionally she is on Eliquis for DVT. She seemed to be doing okay yesterday her daughter is with her and gives her her medications to ensure that she does not take any of her pain medications. Her last dose of pain medications was at 4 AM today. Patient was recently hospitalized from May 04 to May 12. MD Complaint: generalized weakness Onset (ago): hour(s) Duration: constant Location: generalized Relieving factors: none Exacerbating factors: none Context: history of similar Associated symptoms: Denies chest pain, chills, confusion, melena, decreased appetite, diaphoresis, dysuria, easy bruising, fever(s), headache(s), myalgias, nausea, rash, short of breath, syncope or vomiting Review of Systems Const: Denies: fever(s), chills or diaphoresis ENMT: Denies: throat pain, ear or mastoid pain, nasal discharge or nasal congestion Card: Denies: chest pain or syncope Resp: Denies: dyspnea, productive cough or non-productive cough GI: Denies: vomiting or melena : Denies: dysuria Skin/Breast: Denies: rash or pruritus Neuro: Denies: headache(s) or confusion Willie/Lymph: Denies: easy bruising PFS ED PFSH: Medical History Acute encephalopathy Acute kidney injury Anxiety -anxiolytics PRN Cervical cancer, FIGO stage EVARISTO Cholelithiasis Chronic anemia CKD (chronic kidney disease) stage 2, GFR 60-89 ml/min Dehydration Diabetes mellitus Diverticulitis of large intestine with perforation and abscess without bleeding Gastroesophageal reflux disease Hypertension Hypothyroidism Low back pain Morbid obesity -BMI-34 kg/m2 Oropharyngeal candidiasis -apparent oral lesions on examination; ongoing odynophagia, dysphagia; symptoms resolved -opportunistic infection in immunocompromised patient -loaded with fluconazole 400 mg x 1, now on 200 mg once daily; due to improvement will switch to PO, plan to treat x 7 days -off IVF hydration; improved oral intake -tolerating GI soft diet -nystatin swish and swallow, magic mouthwash -pain control as needed -appreciate ST evaluation; cleared for regular diet/liquids Rectal fissure -on exam with some intermittent bleeding; no more so far -continue to monitor H/H; drop likely dilutional Surgical History H/O pelvic surgery Cervical biopsy, cystoscopy with biopsy, rigid proctoscopy to 15 cm ([facility]) Family History Mother CAD (coronary artery disease) Father Aneurysm brain Sister Cancer breast cancer Family/Other Cancer breast cancer in niece Social History Smoking and tobacco status: never smoked Alcohol intake: never Household members: children Housing: House Physical Exam Const: COMMON NORMALS: no acute distress GENERAL APPEARANCE: cooperative and comfortable HENMT: COMMON NORMALS: normocephalic, atraumatic and hearing grossly normal bilaterally HEAD & SCALP: normocephalic and atraumatic Eye: COMMON NORMALS: Equal, round and reactive pupils present, EOMs intact bilaterally, conjunctivae normal and no scleral icterus CONJUNCTIVA: Yes conjunctivae normal PUPIL: Yes Equal, round and reactive pupils present Neck/C-Spine: COMMON NORMALS: full ROM, no lymphadenopathy, supple and no JVD Lymph: LYMPHATIC: no lymphadenopathy noted and no lymphedema noted Resp: COMMON NORMALS: normal respiratory effort, No retractions, No use of accessory muscles and clear to auscultation bilaterally AUSCULTATION: clear to auscultation bilaterally Cardio: COMMON NORMALS: no JVD, regular rate, regular rhythm and No murmurs present (Cardio) RATE: regular rate RHYTHM: regular rhythm GI: COMMON NORMALS: Soft to palpation and No hepatosplenomegaly present AUSCULTATION: Yes normoactive bowel sounds PALPATION: Yes Soft to palpation, No Tenderness to palpation present (GI), No Guarding due to palpation present (GI) and Yes No hepatosplenomegaly present Extremity: COMMON NORMALS: normal to inspection, capillary refill normal, no clubbing, cyanosis or edema, no calf tenderness and no pedal edema Skin: COMMON NORMALS: no rashes or lesions noted GENERAL SKIN EXAM: no rashes or lesions noted Course Vital Signs: Vital signs: Vital Signs Temperature 98.0 F 05/20/20 10:48 Pulse Rate 79 05/20/20 13:15 Respiratory Rate 17 05/20/20 13:15 Blood Pressure 136/61 05/20/20 13:15 Pulse Oximetry 98 05/20/20 13:15 MDM - Weakness MDM Narrative: Medical decision making narrative: Blood pressure improved significantly with fluid boluses we will go and discharge her home she did have a little bit of a bladder infection we will start her on some oral antibiotics. Have her hold her Lasix follow-up with her primary care doctor within the week return if she has further problems. Lab Data: Labs: Lab Results 05/20/20 05/20/20 05/20/20 Range/Units 11:10 11:10 11:10 WBC 7.7 (4.0-10.0) 10^3/ uL RBC 3.36 L (4.1-5.3) 10^6/u L Hgb 10.1 L (11.5-15.3) g/dL Hct 32.9 L (37.0-47.0) % MCV 97.9 (81-99) fL MCH 30.1 (28.0-34.0) pg MCHC 30.7 (30.0-36.0) g/dL RDW 14.5 (12.1-15.1) % Plt Count 190 (130-400) 10^3/c mm MPV 9.6 (7.4-10.4) fL Neut % (Auto) 73.1 % Lymph % (Auto) 16.1 % [place] % (Auto) 8.7 % Eos % (Auto) 1.4 % Baso % (Auto) 0.3 % Neut # (Auto) 5.63 (1.8-7.7) 10^3/u L Lymph # (Auto) 1.2 (0.8-4.8) 10^3/u L [place] # (Auto) 0.7 (0.2-0.9) 10^3/u L Eos # (Auto) 0.1 (0.0-0.8) 10^3/u L Baso # (Auto) 0.0 (0.0-0.1) 10^3/u L Nucleated RBC % (a uto) 0 % Nucleated RBCs # 0.0 /100WBC Sodium 136 (136-145) mmol/L Potassium 3.7 (3.5-5.1) mmol/L Chloride 97 L (98-107) mmol/L Carbon Dioxide 25 (22-29) mmol/L Anion Gap 17.7 (5-19) BUN 30 H (8-23) mg/dL Creatinine 1.6 H (0.5-0.9) mg/dL GFR Calculation Not Reportable Glucose 125 H (65-115) mg/dL Calculated Osmolal ity 290 (285-295) mOsm/k g Lactic Acid 1.8 (0.5-2.2) mmol/L Calcium 9.2 (8.5-10.5) mg/dL Total Bilirubin 1.5 H (0.15-1.2) mg/dL AST 20 (0-32) U/L ALT 66 H (0-33) U/L Alkaline Phosphata se 124 H (35-105) IU/L Creatine Kinase 25 L (26-192) U/L Total Protein 6.0 L (6.6-8.7) g/dL Albumin 3.5 (3.5-5.2) g/dL Globulin 2.5 (1.3-4.6) g/dL Urine Color (Yellow) Urine Appearance (CLEAR) Urine pH (5-7) Ur Specific Gravit y (1.005-1.030) Urine Protein (Negative) Urine Glucose (UA) (Normal) Urine Ketones (Negative) Urine Blood (Negative) Urine Nitrate (Negative) Urine Bilirubin (Negative) Urine Urobilinogen (Negative) mg/dL Ur Leukocyte [place] (Negative) Urine RBC (0-2) /hpf Urine WBC (0-5) /hpf Ur Squamous Epith Cells (0-5) /hpf Amorphous Sediment Urine Bacteria (NONE) /hpf Urine Mucus /hpf 05/20/20 Range/Units 12:48 WBC (4.0-10.0) 10^3/ uL RBC (4.1-5.3) 10^6/u L Hgb (11.5-15.3) g/dL Hct (37.0-47.0) % MCV (81-99) fL MCH (28.0-34.0) pg MCHC (30.0-36.0) g/dL RDW (12.1-15.1) % Plt Count (130-400) 10^3/c mm MPV (7.4-10.4) fL Neut % (Auto) % Lymph % (Auto) % [place] % (Auto) % Eos % (Auto) % Baso % (Auto) % Neut # (Auto) (1.8-7.7) 10^3/u L Lymph # (Auto) (0.8-4.8) 10^3/u L [place] # (Auto) (0.2-0.9) 10^3/u L Eos # (Auto) (0.0-0.8) 10^3/u L Baso # (Auto) (0.0-0.1) 10^3/u L Nucleated RBC % (a uto) % Nucleated RBCs # /100WBC Sodium (136-145) mmol/L Potassium (3.5-5.1) mmol/L Chloride (98-107) mmol/L Carbon Dioxide (22-29) mmol/L Anion Gap (5-19) BUN (8-23) mg/dL Creatinine (0.5-0.9) mg/dL GFR Calculation Glucose (65-115) mg/dL Calculated Osmolal ity (285-295) mOsm/k g Lactic Acid (0.5-2.2) mmol/L Calcium (8.5-10.5) mg/dL Total Bilirubin (0.15-1.2) mg/dL AST (0-32) U/L ALT (0-33) U/L Alkaline Phosphata se (35-105) IU/L Creatine Kinase (26-192) U/L Total Protein (6.6-8.7) g/dL Albumin (3.5-5.2) g/dL Globulin (1.3-4.6) g/dL Urine Color Yellow (Yellow) Urine Appearance Clear (CLEAR) Urine pH 5.0 (5-7) Ur Specific Gravit y 1.015 (1.005-1.030) Urine Protein Neg (Negative) Urine Glucose (UA) Norm (Normal) Urine Ketones Negative (Negative) Urine Blood Neg (Negative) Urine Nitrate Negative (Negative) Urine Bilirubin Neg (Negative) Urine Urobilinogen Norm (Negative) mg/dL Ur Leukocyte [place] Trace H (Negative) Urine RBC None (0-2) /hpf Urine WBC 10-15 H (0-5) /hpf Ur Squamous Epith Cells 5-10 H (0-5) /hpf Amorphous Sediment Not Reportable Urine Bacteria Trace (NONE) /hpf Urine Mucus 1+ /hpf Discharge Plan Discharge Patient Disposition: Home Clinical Impression: Hypotension, CKD (chronic kidney disease) stage 2, GFR 60-89 ml/min, Anemia, Cystitis Condition: Stable Prescriptions: New Macrobid 100 mg capsule 100 mg PO BID 5 Days Qty: 10 RF: 0 Held Lasix 20 mg Tablet 20 mg PO DAILY RF: 0 Hold Instructions: Resume on 05/27/20. No Action naloxone 4 mg/actuation spray,non-aerosol 4 mg INTRANASAL Q3M PRN (Reason: opioid overdose) Qty: 2 RF: 0 Levemir FlexTouch U-100 Insuln 100 unit/mL (3 mL) Insulin Pen 20 unit SUBCUT BEDTIME RF: 0 pantoprazole 20 mg tablet,delayed release (DR/EC) 40 mg PO BID PRN (Reason: stomach acid/heartburn) Qty: 0 RF: 0 Eliquis 5 mg Tablet 2.5 mg PO BID 30 Days Qty: 60 RF: 0 citalopram 40 mg tablet 40 mg PO DAILY RF: 0 levothyroxine 150 mcg tablet 150 mcg PO DAILY RF: 0 lorazepam 1 mg tablet 0.5 mg PO TID PRN (Reason: Nausea) RF: 0 rosuvastatin [Crestor] 40 mg tablet 40 mg PO BEDTIME RF: 0 trazodone 50 mg tablet 100 mg PO BEDTIME RF: 0 potassium chloride 10 mEq tablet extended release 20 meq PO DAILY RF: 0 lisinopril-hydrochlorothiazide 20-25 mg tablet 1 tab PO DAILY RF: 0 oxycodone 5 mg tablet 15 mg PO Q6H PRN (Reason: pain) RF: 0 naloxegol 25 mg tablet 25 mg PO QAM PRN (Reason: Constipation) RF: 0 dronabinol 5 mg capsule 5 mg PO TID PRN (Reason: nausea and vomiting) Qty: 14 RF: 0 oxycodone-acetaminophen 7.5-325 mg Tablet 1 tab PO Q6H PRN (Reason: Pain) RF: 0 gabapentin 100 mg capsule 100 mg PO BID RF: 0 Discharge Orders: Discharge Order (Routine); Ordered 05/20/20 Ordered By: Vel Saab Referrals: Chapin Keita MD [Primary Care Provider] - Discharge Diet: Usual diet Discharge Activity: Increase activity as tolerated Activity Restrictions/Additional Instructions: Hold your Lasix until you follow-up with your primary care provider. Recommend following up with your primary care provider within the next week. In addition give a short course of antibiotics for cystitis. Coding Level of Care Code ED Pinsetter Mechanic Automatic for Chg Fwd Exam Comprehensive
[2020-05-20 11:42] LABS: Lactic Sepsis W/Reflex 1.8 mmol/L (0.5-2.2)
[2020-05-20 11:43] LABS: Alanine Aminotransferase 66 U/L (0-33); Albumin Level 3.5 g/dL (3.5-5.2); Alkaline Phosphatase 124 IU/L (35-105); Anion Gap 17.7 (5-19); Aspartate Amino Transferase 20 U/L (0-32); Blood Urea Nitrogen 30 mg/dL (8-23); Calcium 9.2 mg/dL (8.5-10.5); Carbon Dioxide 25 mmol/L (22-29); Chloride 97 mmol/L (98-107); Creatine Phosphokinase 25 U/L (26-192); Globulin 2.5 g/dL (1.3-4.6); Glucose 125 mg/dL (65-115); Osmolality Calculated 290 mOsm/kg (285-295); Potassium 3.7 mmol/L (3.5-5.1); Sodium 136 mmol/L (136-145); Total Bilirubin 1.5 mg/dL (0.15-1.2)
[2020-05-20] MEDS: sodium chloride 0.9% 1,000 ML 999 ML IV (11:46)
[2020-05-20 12:56] VITALS: BP 134/66; BP 136/79; BP 152/65; PULSE 78; PULSE 85; PULSE 95
[2020-05-20] MEDS: sodium chloride 0.9% 500 ML 999 ML IV (13:13)
[2020-05-20 13:15] VITALS: BP 136/61; PULSE 79; RESP 17; O2SAT 98
[2020-05-20 13:27] LABS: Add Urine Microscopic? YES; Bilirubin Urine Neg (Negative); Blood Urine Neg (Negative); Glucose Urine UA Norm (Normal); Ketones Urine Negative (Negative); Leukocyte Esterase Urine Trace (Negative); Nitrate Urine Negative (Negative); Protein Urine Neg (Negative); Specific Gravity, Urine 1.015 (1.005-1.030); Urine Appearance Clear (CLEAR); Urine Color Yellow (Yellow); Urobilinogen Urine Norm (Negative)
[2020-05-20 13:28] LABS: Add Urine Culture? No; Bacteria Urine TRACE /hpf; Mucus Urine 1+ /hpf
[2020-05-20 14:11] VITALS: BP 137/56; PULSE 78; RESP 17; O2SAT 95
== END 2020-05-20 14:12 | disposition home or self-care (01) ==
PROVIDERS: Emergency Provider Family Medicine; PCP Family Medicine
DX: D64.9 Anemia, unspecified (principal); N30.90 Cystitis, unspecified without hematuria; I95.9 Hypotension, unspecified; E11.22 Type 2 diabetes mellitus with diabetic chronic kidney disease; I12.9 Hypertensive chronic kidney disease with stage 1 through stage 4 chronic kidney disease, or unspecified chronic kidney disease; N18.2 Chronic kidney disease, stage 2 (mild); Z85.41 Personal history of malignant neoplasm of cervix uteri; Z79.4 Long term (current) use of insulin; Z79.01 Long term (current) use of anticoagulants
CPT/HCPCS: 12345; 71045; 80053; 81001; 82550; 83605; 85025; 96360; 99283; J7030; J7040

== ENCOUNTER 2020-05-20 22:43 | Inpatient (IN) | payer MEDICARE, MEDICAID, SELFPAY ==
[2020-05-20 22:47] VITALS: BP 74/43; PULSE 91; RESP 16; TEMP 36.8; O2SAT 97; BMI 29.0
--- NOTE | 2020-05-20 22:54 | XR_ITS ---
WS: [id number] Exam: XR chest 1V portable [id number] Date/Time of Exam: 05/20/2020 10:54 PM Reason For Exam: Dizziness Comparison 05/20/2020. Findings: The lungs are clear and fully expanded. Costophrenic angles are sharp. No infiltrates. Bronchovascula r relief appears normal. Cardiac silhouette is unremarkable. Bony elements are intact. XR/XR chest 1V portable [id number] IMPRESSION: Unremarkable chest radiograph.
--- NOTE | 2020-05-20 22:55 | ECG_ITS ---
[facility] Test Date: 2020-05-20 Pat Name: Sharon Sotelo Department: Room: Gender: Female Invasive Cardiovascular Technologist: : 1945 Requested By: Annette Dial Order Number: [id number] Federico MD: Iam Hernandez M.D. Measurements Intervals [place] Rate: 80 P: 40 MD: 194 QRS: 44 QRSD: 81 T: 36 QT: 367 QTc: 423 Interpretive Statements SINUS RHYTHM ST ELEVATION, CONSIDER INFERIOR INJURY [MARKED ST ELEVATION W/O NORMALLY INFLECTED T WAVE IN II/aVF] ACUTE [place] Compared to ECG 05/04/2020 13:40:15 ST (T wave) deviation now present Myocardial infarct finding now present Electronically Signed On 05-21-2020 21:59:25 MOBILITY SPECIALIST by Iam Hernandez M.D. [id number]
--- NOTE | 2020-05-20 23:03 | ED_ITS ---
HPI - Dizziness General: Chief Complaint: Dizziness Stated Complaint: LOW BP Time Seen by Provider: 05/20/20 22:53 Source: patient and family Mode of arrival: ambulatory Limitations: no limitations History of Present Illness: HPI Narrative: Sharon is a nice 74-year-old female who comes in complaining of generalized weakness and falls. Patient was recently in the hospital for a prolonged stay and was in the ER earlier today for low blood pressure and weakness. Patient improved after fluids and was discharged home. Family states since going home the patient has been weak and is fallen and has hit her head. Patient denies being injured or hurting from the fall. Patient does state that she feels weak and dizzy and lightheaded anytime she goes from a seated or laying position to standing. Of note the patient's blood pressure in triage was 74 systolic. Patient mitts to me that she is been having some intermittent chest pain today as well as lower abdominal pain. She denies any blood in her stools or black tarry stools. Presently at rest she denies any complaints other than generalized malaise. Associated symptoms: Reports chest pain and malaise; Denies change in hearing, chills, diaphoresis, ear discharge, headache(s), nausea, palpitations, syncope or vomiting Associated neuro symptoms: Deny confusion or numbness in extremities Review of Systems Const: Reports: malaise; Denies: fever(s), chills, body aches, fatigue or diaphoresis Eyes: Denies: change in vision, blurry vision, photophobia, eye discomfort, eye discharge, eye redness or yellow eyes ENMT: Denies: throat pain, odynophagia, hoarseness, swelling of lips/tongue, ear or mastoid pain, ear discharge, change in hearing or nasal discharge Card: Reports: chest pain, lightheadedness and pre-syncope; Denies: palpitations, irregular heart rhythm, edema, syncope, dyspnea on exertion or orthopnea Resp: Denies: dyspnea, productive cough, non-productive cough, wheezing, hemoptysis or chest congestion GI: Reports: abdominal pain; Denies: nausea, vomiting, hematemesis, coffee ground emesis, heartburn, diarrhea, constipation, GI cramping, hematochezia or melena : Denies: flank pain, dysuria, urinary frequency, urinary urgency or hematuria Musc: Denies: neck pain, back pain, extremity pain, extremity swelling, joint pain, joint swelling, joint redness, joint warmth or joint stiffness Skin/Breast: Denies: rash, pruritus, erythema, skin pain or skin tenderness Neuro: Denies: headache(s), numbness in extremities, weakness in extremities, sensory changes, lack of coordination, difficulty walking, dizziness, vertigo, confusion, Slurred speech present or seizure-like activity Willie/Lymph: Denies: easy bruising, easy bleeding, petechiae, purpura or enlarged lymph nodes All/Imm: Denies: urticaria, throat swelling, tongue swelling, facial swelling or acute wheezing PFSH ED PFSH: Medical History Acute encephalopathy Acute kidney injury Anxiety -anxiolytics PRN Cervical cancer, FIGO stage EVARISTO Cholelithiasis Chronic anemia CKD (chronic kidney disease) stage 2, GFR 60-89 ml/min Dehydration Diabetes mellitus Diverticulitis of large intestine with perforation and abscess without bleeding Gastroesophageal reflux disease Hypertension Hypothyroidism Low back pain Morbid obesity -BMI-34 kg/m2 Oropharyngeal candidiasis -apparent oral lesions on examination; ongoing odynophagia, dysphagia; symptoms resolved -opportunistic infection in immunocompromised patient -loaded with fluconazole 400 mg x 1, now on 200 mg once daily; due to improvement will switch to PO, plan to treat x 7 days -off IVF hydration; improved oral intake -tolerating GI soft diet -nystatin swish and swallow, magic mouthwash -pain control as needed -appreciate ST evaluation; cleared for regular diet/liquids Rectal fissure -on exam with some intermittent bleeding; no more so far -continue to monitor H/H; drop likely dilutional Surgical History H/O pelvic surgery Cervical biopsy, cystoscopy with biopsy, rigid proctoscopy to 15 cm ([facility]) Family History Mother CAD (coronary artery disease) Father Aneurysm brain Sister Cancer breast cancer Family/Other Cancer breast cancer in niece Social History Smoking and tobacco status: never smoked Alcohol intake: never Household members: children Housing: House Physical Exam Const: COMMON NORMALS: no acute distress, patient oriented x3, no limitations and alert GENERAL APPEARANCE: cooperative HENMT: COMMON NORMALS: normocephalic, atraumatic, external ears normal, EAC's normal and Normal external nose present HEAD & SCALP: normal to inspection, normocephalic and atraumatic FACE & SINUS: normal facial exam and face symmetric NOSE: Normal external nose present and Normal nares present EXTERNAL EAR: Yes external ears normal EXTERNAL AUDITORY CANAL: EAC's normal MOUTH: Normal oral and palatal mucosa present, lip normal and tongue normal Eye: COMMON NORMALS: Equal, round and reactive pupils present and conjunctivae normal GENERAL EYE: appearance normal, both eyes and all related structures ALIGNMENT: Yes alignment normal PERIORBITAL: periorbital findings normal EYELID: eyelids normal CONJUNCTIVA: Yes conjunctivae normal SCLERA: sclerae normal PUPIL: Yes Equal, round and reactive pupils present Neck/C-Spine: COMMON NORMALS: full ROM, no lymphadenopathy, supple, no meningeal signs and no JVD GENERAL: Yes normal visual inspection and Yes trachea midline Chest: COMMONS NORMALS: normal inspection of the chest and normal palpation of entire chest wall Resp: COMMON NORMALS: normal respiratory effort, No retractions, No use of accessory muscles and clear to auscultation bilaterally EFFORT & INSPECTION: Yes able to speak in complete sentences and Yes symmetric chest movement AUSCULTATION: clear to auscultation bilaterally, no crackles, no rales, no rhonchi and no wheezes Cardio: COMMON NORMALS: no JVD, regular rate, regular rhythm, S1 normal heart sound present and S2 normal heart sound present RATE: regular rate RHYTHM: regular rhythm HEART SOUNDS: S1 normal heart sound present, S2 normal heart sound present, no click, no gallops, no murmurs and no rubs GI: COMMON NORMALS: Soft to palpation and No hepatosplenomegaly present PALPATION: Yes Soft to palpation, Yes Tenderness to palpation present (GI) (Mild in bilateral lower quadrants.), No Guarding due to palpation present (GI), No Rigid due to palpation, Yes No hepatosplenomegaly present, No Hernia present, No Palpable mass present and No Pulsatile mass present : COMMON NORMALS: Yes no CVA tenderness BLADDER/KIDNEY EXAM: Yes no CVA tenderness EXTERNAL FEMALE EXAM: No Hernia present Back/Pelvis: COMMON NORMALS: no CVA tenderness, thoracic and lumbar spine normal to inspection, no thoracic nor lumbar tenderness and thoraco-lumbar ROM normal Extremity: COMMON NORMALS: normal to inspection, full ROM, capillary refill normal, no joint enlargement, no clubbing, cyanosis or edema and no calf tenderness Neuro: COMMON NORMALS: patient oriented x3, CN's II-XII intact bilaterally, moves all extremities, no focal motor deficits and no sensory deficits noted SENSORIUM/ORIENTATION: Yes alert MENINGEAL SIGNS: Yes no meningeal signs SPEECH: speech normal Psych: COMMON NORMALS: mental status grossly normal, Normal thought process present, cooperative, normal affect, speech normal and activity/motor behavior normal SPEECH: Yes normal speech THOUGHT PROCESS: Normal thought process present Skin: COMMON NORMALS: no rashes or lesions noted, turgor normal, no jaundice, no petechiae and no mottling GENERAL SKIN EXAM: no rashes or lesions noted and turgor normal Course Vital Signs: Vital signs: Vital Signs Temperature 98.3 F 05/21/20 05:07 Pulse Rate 90 05/21/20 05:30 Respiratory Rate 19 H 05/21/20 05:30 Blood Pressure 108/54 05/21/20 05:30 Pulse Oximetry 90 05/21/20 05:30 MDM - Dizziness MDM Narrative: Medical decision making narrative: [id number] -the patient is a return ER visit for recurrent hypotension. Is unclear what is causing her symptoms at this point. She does not appear to be septic. Does not appear to be an NSTEMI up to this point. Patient's head CT is normal so I believe she is likely safe from any injury from falling earlier today. Because of her recurrent hypotension and falls anticoagulation I think she would be best served to be admitted to the hospital for observation. She is not had any black tarry stools or blood in her stool but she has dropped her hemoglobin 1 g since earlier today. This could be secondary to hemodilution from IV fluids earlier today. Patient denies having any other concerns at this time. The case was reviewed with Dr. Escobar who is agreeable to admit for further evaluation and care. Lab Data: Attestation: I reviewed the patient's lab results. Labs: Lab Results 05/21/20 05/21/20 05/21/20 Range/Units 00:34 00:55 00:55 WBC 5.3 (4.0-10.0) 10^3/ uL RBC 3.02 L (4.1-5.3) 10^6/u L Hgb 8.9 L (11.5-15.3) g/dL Hct 29.5 L (37.0-47.0) % MCV 97.7 (81-99) fL MCH 29.5 (28.0-34.0) pg MCHC 30.2 (30.0-36.0) g/dL RDW 14.6 (12.1-15.1) % Plt Count 134 (130-400) 10^3/c mm MPV 9.7 (7.4-10.4) fL Neut % (Auto) 74.9 % Lymph % (Auto) 12.3 % Grant % (Auto) 10.1 % Eos % (Auto) 1.9 % Baso % (Auto) 0.4 % Neut # (Auto) 3.95 (1.8-7.7) 10^3/u L Lymph # (Auto) 0.7 L (0.8-4.8) 10^3/u L Grant # (Auto) 0.5 (0.2-0.9) 10^3/u L Eos # (Auto) 0.1 (0.0-0.8) 10^3/u L Baso # (Auto) 0.0 (0.0-0.1) 10^3/u L Nucleated RBC % (a uto) 0 % Nucleated RBCs # 0.0 /100WBC PT 16.40 H (12.1-14.9) SECO NDS INR 1.28 H (0.8-1.2) APTT 34.0 (23.9-36.7) SECO NDS Sodium (136-145) mmol/L Potassium (3.5-5.1) mmol/L Chloride (98-107) mmol/L Carbon Dioxide (22-29) mmol/L Anion Gap (5-19) BUN (8-23) mg/dL Creatinine (0.5-0.9) mg/dL GFR Calculation Glucose (65-115) mg/dL Calculated Osmolal ity (285-295) mOsm/k g Lactic Acid (0.5-2.2) mmol/L Calcium (8.5-10.5) mg/dL Magnesium (1.7-2.3) mg/dL Total Bilirubin (0.15-1.2) mg/dL AST (0-32) U/L ALT (0-33) U/L Alkaline Phosphata se (35-105) IU/L Creatine Kinase (26-192) U/L Troponin T Baselin e (0-10) ng/L Total Protein (6.6-8.7) g/dL Albumin (3.5-5.2) g/dL Globulin (1.3-4.6) g/dL Lipase (13-60) U/L TSH (0.27-4.20) uIU/ mL Urine Color Yellow (Yellow) Urine Appearance Clear (CLEAR) Urine pH 5.0 (5-7) Ur Specific Gravit y 1.005 (1.005-1.030) Urine Protein Neg (Negative) Urine Glucose (UA) Norm (Normal) Urine Ketones Negative (Negative) Urine Blood Neg (Negative) Urine Nitrate Negative (Negative) Urine Bilirubin Neg (Negative) Urine Urobilinogen Norm (Negative) mg/dL Ur Leukocyte Sri ase Negative (Negative) Urine RBC None (0-2) /hpf Urine WBC None (0-5) /hpf Ur Squamous Epith Cells None (0-5) /hpf Ur Transition Epit h Cell None /hpf Amorphous Sediment Not Reportable Urine Bacteria None (NONE) /hpf 05/21/20 05/21/20 05/21/20 Range/Units 00:55 00:55 00:55 WBC (4.0-10.0) 10^3/ uL RBC (4.1-5.3) 10^6/u L Hgb (11.5-15.3) g/dL Hct (37.0-47.0) % MCV (81-99) fL MCH (28.0-34.0) pg MCHC (30.0-36.0) g/dL RDW (12.1-15.1) % Plt Count (130-400) 10^3/c mm MPV (7.4-10.4) fL Neut % (Auto) % Lymph % (Auto) % Grant % (Auto) % Eos % (Auto) % Baso % (Auto) % Neut # (Auto) (1.8-7.7) 10^3/u L Lymph # (Auto) (0.8-4.8) 10^3/u L Grant # (Auto) (0.2-0.9) 10^3/u L Eos # (Auto) (0.0-0.8) 10^3/u L Baso # (Auto) (0.0-0.1) 10^3/u L Nucleated RBC % (a uto) % Nucleated RBCs # /100WBC PT (12.1-14.9) SECO NDS INR (0.8-1.2) APTT (23.9-36.7) SECO NDS Sodium 137 (136-145) mmol/L Potassium 3.9 (3.5-5.1) mmol/L Chloride 102 (98-107) mmol/L Carbon Dioxide 27 (22-29) mmol/L Anion Gap 11.9 (5-19) BUN 26 H (8-23) mg/dL Creatinine 1.6 H (0.5-0.9) mg/dL GFR Calculation Not Reportable Glucose 89 (65-115) mg/dL Calculated Osmolal ity 288 (285-295) mOsm/k g Lactic Acid 1.0 (0.5-2.2) mmol/L Calcium 9.3 (8.5-10.5) mg/dL Magnesium 1.9 (1.7-2.3) mg/dL Total Bilirubin 1.6 H (0.15-1.2) mg/dL AST 18 (0-32) U/L ALT 50 H (0-33) U/L Alkaline Phosphata se 114 H (35-105) IU/L Creatine Kinase 25 L (26-192) U/L Troponin T Baselin e 23 H (0-10) ng/L Total Protein 5.6 L (6.6-8.7) g/dL Albumin 3.5 (3.5-5.2) g/dL Globulin 2.1 (1.3-4.6) g/dL Lipase 33 (13-60) U/L TSH 0.98 (0.27-4.20) uIU/ mL Urine Color (Yellow) Urine Appearance (CLEAR) Urine pH (5-7) Ur Specific Gravit y (1.005-1.030) Urine Protein (Negative) Urine Glucose (UA) (Normal) Urine Ketones (Negative) Urine Blood (Negative) Urine Nitrate (Negative) Urine Bilirubin (Negative) Urine Urobilinogen (Negative) mg/dL Ur Leukocyte Sri ase (Negative) Urine RBC (0-2) /hpf Urine WBC (0-5) /hpf Ur Squamous Epith Cells (0-5) /hpf Ur Transition Epit h Cell /hpf Amorphous Sediment Urine Bacteria (NONE) /hpf Imaging Data^: CXR: Attestation: I personally reviewed and interpreted this imaging study as follows: My impression: No acute cardiopulmonary findings. CT Abd/Pel: Radiologist's impression: [id number] [address] [address] Scan Report Signed Patient: Sharon Sotelo Unit #: [id number] : 1945 Age/Sex: 74 / F ADM Date: 05/20/20 Loc: ER Room/Bed: Attending Dr: Ordering Provider/Ordering MD: Annette Foster DO Date of Service: 05/20/20 Procedure(s): CT abdomen pelvis w con* [id number] Accession Number(s): [id number] Report Number: [id number] PROCEDURE INFORMATION: Exam: CT Abdomen And Pelvis With Contrast Exam date and time: 05/20/2020 11:36 PM Age: 74 years old Clinical indication: Abdominal pain; Generalized TECHNIQUE: Imaging protocol: Computed tomography of the abdomen and pelvis with intravenous contrast. Radiation optimization: All CT scans at this facility use at least one of these dose optimization techniques: automated exposure control; mA and/or kV adjustment per patient size (includes targeted exams where dose is matched to clinical indication); or iterative reconstruction. Contrast material: VISI; Contrast volume: 95 ml; Contrast route: INTRAVENOUS (IV); COMPARISON: CT abdomen pelvis w con* [id number] 04/21/2020 2:42 PM RADIATION DOSE METRICS: Total DLP (mGy-cm): 1092.12 FINDINGS: Lungs: There is subsegmental atelectasis in the lung bases. Liver: The liver is normal. Gallbladder and bile ducts: The gallbladder is distended and contains variably sized calcified stones and sludge. There is no gallbladder wall thickening or pericholecystic fluid. No biliary dilation. Pancreas: There is mild atrophy of the pancreas. Spleen: The spleen is unremarkable. Adrenal glands: The adrenal glands are unremarkable. Kidneys and ureters: The kidneys are unremarkable. No hydronephrosis or stones. No ureteral dilation. Stomach and bowel: The stomach is decompressed, preventing meaningful evaluation of wall thickness. The small bowel is nondilated. There is mild sigmoid colonic diverticulosis without evidence of diverticulitis. Appendix: The appendix is normal. Intraperitoneal space: There is no free air or significant intraperitoneal free fluid. Vasculature: The portal, splenic and superior mesenteric veins are patent. There is moderate aortic atherosclerotic disease. Lymph nodes: There is no lymphadenopathy in the retroperitoneum, mesentery, pelvis or inguinal regions. Urinary bladder: The Oakley catheter is appropriately positioned with the bulb and tip within the bladder lumen. Reproductive: There is focal endometrial thickening or fluid within the fundal endometrial canal, similar to the findings on the prior CT. Bones/joints: There are chronic bilateral L5 pars defects with grade 1 anterolisthesis of L5 on S1. There is mild degenerative disease in the lumbar spine. The pelvis and hips are intact. Soft tissues: The abdominal wall is intact. CT/CT abdomen pelvis w con* [id number] IMPRESSION: 1. Gallbladder distention and cholelithiasis. Findings are similar to 04/21/2020. There is no definitive sign of acute cholecystitis. 2. Endometrial thickening versus fluid in the endometrial canal near the uterine fundus. Recommend nonemergent follow-up transvaginal pelvic ultrasound to assess the endometrium. 3. Additional incidental findings above. Radiation Dose CTDIVOL = (mGy): DLP = 1092.12 (mGy-cm) Dictated By: Heriberto Pabon MD Signed By: Heriberto Pabon MD Signed Date/Time: 05/21/20316 DD/ 4 US: My impression: Ultrasound gallbladder, tech interpretation -mild gallbladder distention. Gallstones present along with gallbladder sludge but no sign of wall thickening. No pericholecystic fluid. Normal common bile duct. EKG Data^: EKG 1: Attestation: I personally reviewed and interpreted this EKG as follows: EKG interpretation date: 05/20/20 EKG interpretation time: 23:03 Interpretation: Normal sinus rhythm at 80 beats a minute, no blocks, normal intervals, no acute ST-T wave changes. Unchanged from previous. EKG 2: Attestation: I personally reviewed and interpreted this EKG as follows: EKG interpretation date: 05/21/20 EKG interpretation time: 01:17 Interpretation: Normal sinus rhythm at 74 beats a minute, no blocks, normal intervals, no acute ST-T wave changes. Discharge Plan Discharge Patient Disposition: Placed in Observation Admit Provider: Ras Escobar Clinical Impression: Acute hypotension, Recurrent falls, Chronic anticoagulation Acute on chronic renal failure Qualifiers: Acute renal failure type: unspecified Chronic kidney disease stage: unspecified stage Qualified Code(s): N17.9 - Acute kidney failure, unspecified Coding Level of Care Code ED Telegraph Repeater Technician for Chg Fwd Exam Comprehensive
--- NOTE | 2020-05-20 23:04 | CTR_ITS ---
PROCEDURE INFORMATION: Exam: CT Head Without Contrast Exam date and time: 05/20/2020 11:35 PM Age: 74 years old Clinical indication: Injury or trauma; Fall; Blunt trauma (contusions or hematomas); Without loss of consciousness; Altered mental status/memory loss; Additional info: Fall, altered mental status, anticoagulated TECHNIQUE: Imaging protocol: Computed tomography of the head without contrast. Radiation optimization: All CT scans at this facility use at least one of these dose optimization techniques: automated exposure control; mA and/or kV adjustment per patient size (includes targeted exams where dose is matched to clinical indication); or iterative reconstruction. COMPARISON: CT head wo con* [id number] 05/04/2020 3:03 PM RADIATION DOSE METRICS: Total DLP (mGy-cm): 849.78 FINDINGS: Brain: The brain is unremarkable. There is no mass effect or significant white matter disease. There is no acute intracranial hemorrhage. Cerebral ventricles: There is no significant ventricular dilation. The basal cisterns are unremarkable. Bones/joints: The calvarium is intact. Paranasal sinuses: The paranasal sinuses are clear. Mastoid air cells: The mastoid air cells are clear. Soft tissues: The visible extracranial soft tissues are unremarkable. CT/CT head wo con* [id number] IMPRESSION: No acute findings. Radiation Dose CTDIVOL = (mGy): DLP = 849.78 (mGy-cm)
[2020-05-20 23:13] VITALS: BP 115/56; PULSE 82; RESP 18; O2SAT 96
[2020-05-20] MEDS: sodium chloride 0.9% 1,000 ML 999 ML IV (23:25)
[2020-05-21] VITALS (31 sets, daily range): BP systolic 69–151; BP diastolic 31–78; PULSE 69–102; RESP 14–25; TEMP 36.3–37.4; O2SAT 90–100
--- NOTE | 2020-05-21 00:55 | ECG_ITS ---
[facility] Test Date: 2020-05-21 Pat Name: Sharon Sotelo Department: Room: Gender: Female Sport Psychologist: : 1945 Requested By: Annette Dial Order Number: [id number] Federico MD: Iam Hernandez M.D. Measurements Intervals [place] Rate: 74 P: 60 OH: 199 QRS: 39 QRSD: 102 T: 19 QT: 399 QTc: 444 Interpretive Statements SINUS RHYTHM Compared to ECG 05/20/2020 23:03:47 ST (T wave) deviation no longer present Myocardial infarct finding no longer present Electronically Signed On 05-21-2020 22:06:15 CARBONATION TESTER by Iam Hernandez M.D. [id number]
[2020-05-21 01:06] LABS: Basophils % 0.4 %; Eosinophils # 0.1 10^3/uL (0.0-0.8); Eosinophils % 1.9 %; Hematocrit 29.5 % (37.0-47.0); Hemoglobin 8.9 g/dL (11.5-15.3); Lymphocytes # 0.7 10^3/uL (0.8-4.8); Lymphocytes % 12.3 %; Mean Corpuscular HGB Conc 30.2 g/dL (30.0-36.0); Mean Corpuscular Hemoglobin 29.5 pg (28.0-34.0); Mean Corpuscular Volume 97.7 fL (81-99); Mean Platelet Volume 9.7 fL (7.4-10.4); Monocytes # 0.5 10^3/uL (0.2-0.9); Monocytes % 10.1 %; Neutrophils # 3.95 10^3/uL (1.8-7.7); Neutrophils % 74.9 %; Nucleated Red Blood Cells % 0 %; Platelet Count 134 10^3/cmm (130-400); Red Blood Count 3.02 10^6/uL (4.1-5.3); Red Cell Distribution Width 14.6 % (12.1-15.1); White Blood Count 5.3 10^3/uL (4.0-10.0)
[2020-05-21 01:14] LABS: INR 1.28 (0.8-1.2)
[2020-05-21 01:18] LABS: Bilirubin Urine Neg (Negative); Blood Urine Neg (Negative); Glucose Urine UA Norm (Normal); Ketones Urine Negative (Negative); Leukocyte Esterase Urine Negative (Negative); Nitrate Urine Negative (Negative); Protein Urine Neg (Negative); Specific Gravity, Urine 1.005 (1.005-1.030); Urine Appearance Clear (CLEAR); Urine Color Yellow (Yellow); Urobilinogen Urine Norm (Negative)
[2020-05-21 01:20] LABS: Add Urine Culture? No
[2020-05-21 01:31] LABS: Alanine Aminotransferase 50 U/L (0-33); Albumin Level 3.5 g/dL (3.5-5.2); Alkaline Phosphatase 114 IU/L (35-105); Anion Gap 11.9 (5-19); Aspartate Amino Transferase 18 U/L (0-32); Blood Urea Nitrogen 26 mg/dL (8-23); Calcium 9.3 mg/dL (8.5-10.5); Carbon Dioxide 27 mmol/L (22-29); Chloride 102 mmol/L (98-107); Creatine Phosphokinase 25 U/L (26-192); Globulin 2.1 g/dL (1.3-4.6); Glucose 89 mg/dL (65-115); Lipase 33 U/L (13-60); Magnesium 1.9 mg/dL (1.7-2.3); Osmolality Calculated 288 mOsm/kg (285-295); Potassium 3.9 mmol/L (3.5-5.1); Sodium 137 mmol/L (136-145); Thyroid Stimulating Hormone 0.98 uIU/mL (0.27-4.20); Total Bilirubin 1.6 mg/dL (0.15-1.2); Total Protein 5.6 g/dL (6.6-8.7)
[2020-05-21 01:40] LABS: Troponin(5th) Baseline 23 ng/L (0-10)
[2020-05-21] MEDS: sodium chloride 0.9% 1,000 ML 999 ML IV ×3 (01:42→06:56)
--- NOTE | 2020-05-21 02:05 | US_ITS ---
WS: [id number] RIGHT UPPER QUADRANT ULTRASOUND HISTORY: Abdominal Pain COMPARISON: 12/09/2014 Liver: 15.3 cm in length. Normal size liver. No bile duct dilatation or mass. Gallbladder: Normally distended gallbladder. Stones are present with mild wall thickening up to 4.2 m m. No pericholecystic fluid. There is also small amount of sludge in the gallbladder lumen. CBD: 0.5 cm Pancreas: Normal size and echogenicity. Right kidney: 11.3 cm in length. Normal size and echogenicity. No hydronephrosis or mass. Aorta and IVC: Unremarkable abdominal aorta and IVC. No ascites. US/US gall bladder [id number] IMPRESSION: 1. Cholelithiasis with mild gallbladder wall thickening. No definite evidence for acute cholecystitis. 2. No bile duct dilatation.
[2020-05-21] MEDS: iodixanol 320 mg/mL 100mL Btl IV (02:51)
--- NOTE | 2020-05-21 03:00 | PC.NURSE ---
Spoke with olga lidia in lab, he stated when buzz gets back from the floor he will send her to get the pt 2 hour troponin.
--- NOTE | 2020-05-21 03:46 | P.HP_ITS ---
Providers/Chief Complaint Primary Care Provider: Chapin Keita MD Chief Complaint: LOW BP History of Present Illness Sharon Sotelo is a 74 year old female who has multiple comorbid conditions came in today after sustaining a fall at home. Patient recently got discharged from the hospital after management of encephalopathy secondary to opioid, she was hydrated with IV fluids, at the time of discharge creatinine was 1.1, she was started on oral steroids for concern of acute gout flare for right ankle pain. She was discharged on 05/12 on prednisone 20 mg, dronabinol 5 mg capsule and gabapentin 9 mg p.o. every 8 hours, Lasix 20 mg was held along meloxicam. Patient is stating that today around 1 AM she got up to go to the bathroom, when she was getting out of her wheelchair to enter the bathroom she felt dizzy and fell on the floor. She is describing this dizziness as lightheadedness she is denying syncope, chest pain shortness of breath seizure-like activities. Patient is stating that she has been going to the bathroom a lot she is denying fever, dysuria. She is drinking 800 cc to 1 L a day but her urine output is q uite more than that. Of note, she was admitted for dehydration as well on last admission. She never got diagnosis of diabetes insipidus or polyuria. She is denying vomiting, diarrhea, abdominal pain. Diagnosis in the ER revealed dehydration, hypotension, systolic blood pressure was in 60s which improved after fluid resuscitation, she received 2 L normal saline bolus which improved her blood pressure 225 mmHg, no sign of stroke, no signs of UTI, general looks extremely diluted clear light yellow, EFREN, hemoglobin dropped from 10.1-8.9, she is on Eliquis, total bilirubin 1.6 without any CBD dilation, abnormal transaminases, cholelithiasis without cholecystitis, TSH 0.9 Review of Systems Const: Denies: fever(s) Eyes: Denies: change in vision ENMT: Denies: throat pain Card: Denies: chest pain Resp: Denies: dyspnea GI: Denies: abdominal pain : Reports: urinary frequency; Denies: flank pain Musc: Denies: neck pain Skin/Breast: Denies: rash Neuro: Denies: headache(s) Psych: Denies: anxiety Endo: Denies: polyuria Willie/Lymph: Denies: easy bruising All/Imm: Denies: urticaria Medications/Allergies Home Medications Medication Instructions Recorded Confirmed Last Taken Type citalopram 40 mg PO DAILY 12/21/19 05/20/20 05/20/20 History levothyroxine 150 mcg PO DAILY 12/21/19 05/20/20 05/20/20 History lorazepam 0.5 mg PO TID PRN 12/21/19 05/20/20 05/04/20 History rosuvastatin [Crestor] 40 mg PO BEDTIME 12/21/19 05/20/20 05/19/20 History Levemir FlexTouch U-100 Insuln 20 unit SUBCUT BEDTIME 02/14/20 05/20/20 05/19/20 History Eliquis 2.5 mg PO BID 30 Days #60 tab 02/20/20 05/20/20 05/20/20 Rx pantoprazole 40 mg PO BID PRN #0 tab 02/20/20 05/20/20 05/20/20 Rx naloxone 4 mg/actuation nasal spray 4 mg INTRANASAL Q3M PRN #2 each 04/23/20 05/20/20 Unknown Rx lisinopril-hydrochlorothiazide 1 tab PO DAILY 05/04/20 05/20/20 05/20/20 History naloxegol 25 mg PO QAM PRN 05/04/20 05/20/20 Unknown History oxycodone 15 mg PO Q6H PRN 05/04/20 05/20/20 05/04/20 History potassium chloride 20 meq PO DAILY 05/04/20 05/20/20 05/20/20 History trazodone 100 mg PO BEDTIME 05/04/20 05/20/20 05/19/20 History dronabinol 5 mg PO TID PRN #14 cap 05/12/20 05/20/20 05/20/20 Rx Lasix 20 mg PO DAILY 05/20/20 05/20/20 05/20/20 History gabapentin 100 mg PO BID 05/20/20 05/20/20 05/20/20 History nitrofurantoin monohyd/m-cryst 100 mg PO BID 5 Days #10 cap 05/20/20 Unknown Rx [Macrobid] oxycodone-acetaminophen 1 tab PO Q6H PRN 05/20/20 05/20/20 Unknown History Allergies Allergy/AdvReac Type Severity Reaction Status Date / Time Penicillins Allergy rash as a Verified 05/04/20 12:30 child PFSH Acute PFSH: Medical History Acute encephalopathy Acute kidney injury Anxiety -anxiolytics PRN Cervical cancer, FIGO stage [facility]AR[facility]O Cholelithiasis Chronic anemia CKD (chronic kidney disease) stage 2, GFR 60-89 ml/min Dehydration Diabetes mellitus Diverticulitis of large intestine with perforation and abscess without bleeding Gastroesophageal reflux disease Hypertension Hypothyroidism Low back pain Morbid obesity -BMI-34 kg/m2 Oropharyngeal candidiasis -apparent oral lesions on examination; ongoing odynophagia, dysphagia; symptoms resolved -opportunistic infection in immunocompromised patient -loaded with fluconazole 400 mg x 1, now on 200 mg once daily; due to improvement will switch to PO, plan to treat x 7 days -off IVF hydration; improved oral intake -tolerating GI soft diet -nystatin swish and swallow, magic mouthwash -pain control as needed -appreciate ST evaluation; cleared for regular diet/liquids Rectal fissure -on exam with some intermittent bleeding; no more so far -continue to monitor H/H; drop likely dilutional Surgical History H/O pelvic surgery Cervical biopsy, cystoscopy with biopsy, rigid proctoscopy to 15 cm ([place]) Family History Mother CAD (coronary artery disease) Father Aneurysm brain Sister Cancer breast cancer Family/Other Cancer breast cancer in niece Social History Smoking and tobacco status: never smoked Alcohol intake: never Household members: children Housing: House Vitals/I&O/Wt Last Vital Signs Temp 98.2 F 05/20/20 22:47 Pulse 82 05/21/20 02:58 Resp 17 05/21/20 02:58 BP 101/68 05/21/20 02:58 Pulse Ox 99 05/21/20 02:58 05/20/20 05/20/20 05/21/20 14:59 22:59 06:59 Intake Total 1000 / 1000 Balance 1000 / 1000 Weight last 48 hrs Weight 81.647 kg Physical Exam Narrative: EXAM NARRATIVE: Very pleasant elderly female laying comfortably in her bed Clinically looks slightly dehydrated Systolic blood pressure 125 mmHg Awake alert oriented x3 GCS 15 Saturating well on room air No active chest pain No acute restaurant distress Abdomen soft nontender, no active signs of peritonitis Awake alert oriented x3 No neurological deficit Lower extremity slightly dry skin otherwise no edema gangrene ulcer Appropriate mood and affect EOMI, PERRLA Slightly dry mucous membrane Urinary Catheter Management^: Oakley: Cath Placed During This Visit: yes Reason for Continuing Indwelling Catheter: Other Urinary Catheter Date of Insertion: 05/21/20 Urinary Catheter Time of Insertion: 00:26 Data : 05/21/20 00:55 05/21/20 00:55 Micro: Microbiology 05/21/20 00:53 Blood Culture - Preliminary Blood SPECIMEN COLLECTED 05/21/20 00:55 Blood Culture - Preliminary Blood SPECIMEN COLLECTED A&P Assessment and plan (1) Hypotension: Status: Acute (2) Acute hypotension: Status: Acute (3) Acute on chronic renal failure: Status: Acute Qualifiers: Acute renal failure type: unspecified Chronic kidney disease stage: unspecified stage Qualified Code(s): N17.9 - Acute kidney failure, unspecified; N18.9 - Chronic kidney disease, unspecified (4) Recurrent falls: Status: Acute (5) Chronic anticoagulation: Status: Acute Additional A&P Information Recurrent hypotension Patient is endorsing urinary frequency without signs of UTI UA looks very diluted, my concern is for diabetes insipidus however no sodium abnormality noted We received 2 L urine output in just 2 hours in the ER after getting 2 L normal saline Currently she is not on any diuretics No recent diarrhea or vomiting Monitor for polyuria greater than 3 L a day which could cause recurrent hypertension I am not sure whether she required any lithium in the past Hypertension: Secondary to dehydration and polyuria responsive to fluids, no sign of sepsis infection diarrhea or vomiting, hold antihypertensives Fall after lightheadedness Patient denying syncope, seizure-like activities, chest pain, This was most likely orthostatic in nature Recurrent falls Currently reevaluated location for chronic anticoagulation currently I would hold her Eliquis Acute on chronic macrocytic anemia Hemoglobin has dropped from 10.1-8.9 Check H&H in 4 hours Hold Eliquis Full code Cardiac diet DVT prophylaxis SCDs Attestations Medical Necessity Statement*: Anticipating discharge in less than 48 hours continued IV fluid resuscitation for hypotension, need to rule out polyuria Time Spent in Patient Care: (>than 50% of time spent in counselling and/or direct pt care on unit) . 50mins Coding Level of Care Code Acute Toll Gate Keeper for Asha Fwd Diagnoses Hypotension I95.9 Acute hypotension I95.9 Acute on chronic renal failure N17.9; N18.9 Acute renal failure type: unspecified Chronic kidney disease stage: unspecified stage Recurrent falls R29.6 Chronic anticoagulation Z79.01
[2020-05-21 04:11] LABS: Troponin 5 2HR 20.78 ng/L (0-10)
[2020-05-21 04:15] LABS: Troponin 5 2HR Delta -2.22 ABS# (0-10)
--- NOTE | 2020-05-21 05:19 | PC.NURSE ---
Patient received from ED via stretcher. Patient transferred to [facility] with 1 max assist due to severe pain in right leg. Patient stated, my leg has been hurting for several days now. Not sure why. Assisted patient to bed with max assist. Oakley catheter in place draining yellow urine. Patient has small bm. Admission completed as documented. Medication given for severe leg pain.
[2020-05-21] MEDS: morphine 4 mg/mL SDV 1 mL IVP (05:22)
[2020-05-21] MEDS: dextrose 5%-sod chloride 0.45% 1,000 ML 30 ML IV (06:00)
--- NOTE | 2020-05-21 06:08 | PC.NURSE ---
Patient blood pressure low 64/35 left upper arm. Recheck at 76/37. Performed manual blood pressure to left arm 78/46. Patient c/o feeling mildly dizzy and tired. Informed Dr Escobar and received order for 2L bolus. Beginning 1L now.
--- NOTE | 2020-05-21 06:21 | PC.NURSE ---
Patient continues to c/o only of mild dizziness. BP 81/31. Will cycle every 5 min. 1L bolus continues.
--- NOTE | 2020-05-21 06:35 | PC.NURSE ---
Patient c/o feeling hungry. Remains AAOx4. No distress observed. Blood pressures gradually improving ~0.5L of first bag infused. Patient arm is cold but no infiltration noted. Current BP 107/43. Informed Dr Escobar.
[2020-05-21 06:42] LABS: Glucose Point of Care 78 mg/dL (70-110)
[2020-05-21 06:51] LABS: Cortisol Random 8.99 ug/mL (2.47-19.5)
[2020-05-21 07:54] LABS: Urine Creatinine 110 mg/dL (28-217); Urine Random Sodium 36 mmol/L
[2020-05-21] MEDS: citalopram 20 mg Tablet 40 MG PO (08:09)
[2020-05-21] MEDS: levothyroxine 150 mcg Tablet PO (08:09)
[2020-05-21] MEDS: dronabinol 2.5 mg Capsule 5 MG PO (08:19)
--- NOTE | 2020-05-21 10:11 | PC.CHAP ---
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 [] Patient/Family/Request visit [] Outpatient visit [x] Follow-up visit [] Physician referral [] Code/Alert [] Routine visit [] Staff referral [] Actively dying [] Patient sleeping [] Family support [] [] Out of room [] Palliative care [] [] Receiving care in room [] Pre-surgical visit [] Trauma [] Long length of stay [] ICU visit [] Other: Relational/Emotional Strength [] Patient feels connected with others/family/visitors/staff [] Distress [] Loneliness/isolation [] Abandonment Spirituality of Patient [] Person of Rebekah [] Attends Pentecostal of their Rebekah [] Believes in Prayer [] Reads Bible or Hindu materials [] There are Spiritual issues to be addressed Payroll Examiner Interventions [] Prayer [] Active listening [] Non-anxious presence [] Spiritual/emotional support [] Crisis/trauma care [] Spiritual counseling [] Bereavement support [] Provided bereavement packet [] Provided Bible/devotional materials [] Provided toy/stuffed animal, coloring book to patient or family member [] Provided Communion [] Anointing/[place] [] Salvation [] Completed spiritual assessment [] Other: Impact on Illness or Injury [] Angry [] Fearful [] Anxious [] Often cries [] Exhaustion [] Unable to work [] Unable to attend yazidism [] Unable to walk/stand [] Unable to read [] Unable to drive [] Unable to eat/drink [] Unable to sleep [] Unable to be with family [] Patient intubated [] Other: Summary ] Follow-up visit Time spent with patient 5 mins
[2020-05-21 11:26] LABS: Glucose Point of Care 176 mg/dL (70-110)
[2020-05-21] MEDS: lactated ringers 1,000 ML 999 ML IV (12:20)
--- NOTE | 2020-05-21 12:26 | PM.PN ---
Subjective Subjective: Interval history: Patient reports that she had epigastric area pain earlier this morning but not during my evaluation. Reports that she continues to have significant right ankle pain and swelling. Reports that because of the pain she has difficulty lifting and moving. Reports that the steroids that she was started on did not help her pain. Her hemoglobin is 8.9 this morning. Patient denies melena or hematochezia. She had normal formed bowel movement yesterday. Reports that she urinates without difficulty. Her blood pressure is quite low this morning and 1 L of LR along with 100 mL/h was requested. Her creatinine is 1.6 and she has elevated liver enzymes. Vitals/I&O/Wt Last Vital Signs Temp 97.9 F 05/21/20 11:16 Pulse 83 05/21/20 11:16 Resp 16 05/21/20 11:16 BP 83/34 05/21/20 11:16 Pulse Ox 100 05/21/20 11:16 05/20/20 05/21/20 05/21/20 22:59 06:59 14:59 Intake Total 2134.5 / 2134.5 480 / 480 Balance 2134.5 / 2134.5 480 / 480 Weight last 48 hrs Weight 81.647 kg Physical Exam Const: COMMON NORMALS: no acute distress and patient oriented x3 Resp: COMMON NORMALS: normal respiratory effort and clear to auscultation bilaterally AUSCULTATION: clear to auscultation bilaterally Cardio: COMMON NORMALS: regular rate, regular rhythm and S2 normal heart sound present RATE: regular rate RHYTHM: regular rhythm HEART SOUNDS: S2 normal heart sound present OTHER: No left lower extremity edema. Right lower extremity swollen along with very tender ankle. GI: COMMON NORMALS: Normal to inspection, nondistended, normoactive bowel sounds present and Soft to palpation PALPATION: Yes Soft to palpation OTHER: Tender at epigastric area. Neuro: COMMON NORMALS: patient oriented x3 and no focal motor deficits Urinary Catheter Management^: Oakley: Cath Placed During This Visit: yes Reason for Continuing Indwelling Catheter: Accurate Measurement of Urinary Output in Critically Ill Patients Urinary Catheter Date of Insertion: 05/21/20 Urinary Catheter Time of Insertion: 00:26 Data : 05/21/20 00:55 05/21/20 00:55 Micro: Microbiology 05/21/20 00:53 Blood Culture - Preliminary Blood SPECIMEN COLLECTED 05/21/20 00:55 Blood Culture - Preliminary Blood SPECIMEN COLLECTED A&P Assessment and plan (1) Hypotension: Status: Acute (2) Acute hypotension: Status: Acute (3) Acute on chronic renal failure: Status: Acute Qualifiers: Acute renal failure type: unspecified Chronic kidney disease stage: unspecified stage Qualified Code(s): N17.9 - Acute kidney failure, unspecified; N18.9 - Chronic kidney disease, unspecified (4) Recurrent falls: Status: Acute (5) Chronic anticoagulation: Status: Acute Additional A&P Information hypotension Fall after lightheadedness Recurrent falls Acute on chronic macrocytic anemia Suspected right septic ankle arthritis Epigastric area abdominal pain. Concern for steroid-induced gastritis versus cholecystitis. Full code Cardiac diet DVT prophylaxis SCDs PLAN: Discussed with Dr. Salamanca who will see patient in consultation. We will obtain right ankle MRI and start patient on vancomycin due to concern for septic joint. Blood cultures were obtained earlier today. I will also add Levaquin as cholecystitis cannot be completely ruled out. Obtain HIDA scan for further evaluation which will likely be done tomorrow morning. Start patient on IV high-dose Protonix and avoid steroid/NSAIDs at this point. Although patient was anticoagulated I will go ahead and request right lower extremity ultrasound as it shows evidence of significant pitting edema. We will place Oakley catheter to closely monitor urinary output and if blood pressure is not responding we will transfer to ICU for pressors. Attestations Medical Necessity Statement*: Patient with persistent hypotension and concern for cholecystitis and septic joint requires close inpatient monitoring and treatment. Time Spent in Patient Care: Greater than 35 minutes Coding Level of Care Code Acute Oncology Account Specialist for Asha Alanis Diagnoses Hypotension I95.9 Acute hypotension I95.9 Acute on chronic renal failure N17.9; N18.9 Acute renal failure type: unspecified Chronic kidney disease stage: unspecified stage Recurrent falls R29.6 Chronic anticoagulation Z79.01
[2020-05-21] MEDS: pantoprazole 40 mg SDV IVP (12:28)
--- NOTE | 2020-05-21 12:43 | MR_ITS ---
WS: [id number] MRI RIGHT ANKLE without CONTRAST. COMPARISON: Radiograph 05/08/2020. Multiplanar, multisequence imaging is performed without contrast. History: Concern for septic joint. Mild soft tissue edema surrounding the ankle. There is subcutaneous edema and edema within the muscle s. There is no significant joint effusion. Moderate narrowing of the tibiotalar joint space with a sm all amount of subchondral edema. No osteochondral lesion. No fractures. The distal Achilles tendon is normal. Peroneal brevis and longus tendons are normal. There is edema e xternal to the tendon sheath. Flexor and extension tendons are negative. There is also mild narrowing of the subtalar joint. Degenerative changes in the midfoot and the form of osteophytes and joint spa ce narrowing. Small calcaneal spur. MR/MR ankle RT wo con* [id number] IMPRESSION: 1. No acute fracture. 2. Mild diffuse soft tissue edema surrounding the ankle, hindfoot and midfoot. No fluid collections. 3. Cannot exclude septic joint without IV contrast. No secondary findings of j oint effusion or significant synovial thickening. 4. Mild degenerative changes at the tibiotalar joint and in the midfoot. 5. Small calcaneal spur.
--- NOTE | 2020-05-21 12:46 | USCV_ITS ---
Sharon Sotelo Age: 74 Gender: F : 1945 Exam Date: 05/21/2020 13:01 Ordering Phys: Ronni Guillen MD Technologist: Francisca Arceo Exam Location: [facility] [place] Indication: CONCERN FOR DVT HISTORY: DVT. PROCEDURES: Venous duplex imaging was performed in only the right lower extremity. The following venous structures were evaluated: common femoral vein, profunda vein, proximal portion of the greater saphenous vein, superficial femoral vein, and the popliteal vein. In addition, the posterior tibial and peroneal trunk were evaluated. Serial compression, augmentation maneuvers, and spectral Doppler flow evaluation were performed. FINDINGS: Normal 2-D Doppler and augmentation and compressibility throughout the lower extremity venous structures. Additional imaging through the proximal calf veins also reveals no thrombus. Limited evaluation of the greater saphenous vein is patent with no thrombus. CONCLUSIONS No DVT right lower extremity. Dr. Radha Moody DO (Electronically Signed) Final Date: 21 May 2020 14:08 S
[2020-05-21] MEDS: levofloxacin-dextrose 5 % 750 MG/150 ML PREMIX 100 MG IV (13:43)
[2020-05-21] MEDS: lactated ringers 1,000 ML 100 ML IV (13:49)
--- NOTE | 2020-05-21 15:24 | PC.NURSE ---
Patient left with EMT personnel for transport to MRI at 1500
[2020-05-21 16:15] LABS: Glucose Point of Care 138 mg/dL (70-110)
--- NOTE | 2020-05-21 16:18 | PC.NURSE ---
Patient returned to [facility] at 1600.
[2020-05-21] MEDS: oxyCODONE-APAP 5-325 mg Tablet 1 TAB PO ×2 (16:44→21:57)
[2020-05-21] MEDS: vancomycin 1,000 MG in sodium chloride 0.9% 250 ML 250 MG IV (16:45)
[2020-05-21 21:08] LABS: Glucose Point of Care 115 mg/dL (70-110)
[2020-05-21] MEDS: atorvastatin 40 mg Tablet 80 MG PO (21:57)
--- NOTE | 2020-05-21 22:11 | PC.NURSE ---
ASSUMED CARE. PT IS RESTING IN BED AT TIME TIME. PT C/O 10/10 PAIN IN RIGHT LEG. PRN OXYCODONE WAS GIVEN. WILL CONTINUE TO MONITOR.
[2020-05-22] VITALS (15 sets, daily range): BP systolic 119–190; BP diastolic 53–72; PULSE 72–88; RESP 14–19; TEMP 14.9–37.1; O2SAT 89–100
[2020-05-22] MEDS: pantoprazole 40 mg SDV IVP ×3 (00:12→23:58)
[2020-05-22 04:59] LABS: Basophils % 0.3 %; Eosinophils # 0.1 10^3/uL (0.0-0.8); Eosinophils % 2.7 %; Hematocrit 25.3 % (37.0-47.0); Hemoglobin 7.6 g/dL (11.5-15.3); Lymphocytes # 0.5 10^3/uL (0.8-4.8); Lymphocytes % 14.3 %; Mean Corpuscular Hemoglobin 29.9 pg (28.0-34.0); Mean Corpuscular Volume 99.6 fL (81-99); Monocytes # 0.5 10^3/uL (0.2-0.9); Monocytes % 14.3 %; Neutrophils # 2.48 10^3/uL (1.8-7.7); Neutrophils % 68.1 %; Nucleated Red Blood Cells % 0 %; Platelet Count 97 10^3/cmm (130-400); Red Blood Count 2.54 10^6/uL (4.1-5.3); Red Cell Distribution Width 14.5 % (12.1-15.1); White Blood Count 3.6 10^3/uL (4.0-10.0)
[2020-05-22] MEDS: lactated ringers 1,000 ML 100 ML IV ×2 (05:49→22:25)
[2020-05-22 05:50] LABS: Anion Gap 9.6 (5-19); Blood Urea Nitrogen 13 mg/dL (8-23); Calcium 9.3 mg/dL (8.5-10.5); Carbon Dioxide 26 mmol/L (22-29); Chloride 109 mmol/L (98-107); Glucose 99 mg/dL (65-115); Osmolality Calculated 292 mOsm/kg (285-295); Potassium 3.6 mmol/L (3.5-5.1); Sodium 141 mmol/L (136-145)
--- NOTE | 2020-05-22 06:23 | PC.NURSE ---
PT SEEMED TO HAVE RESTED WITH EYES CLOSED. PT C/O 10/10 PAIN IN RIGHT LEG. PT WAS EDUCATED THAT THEY COULDN'T HAVE A PAIN PILL BECAUSE OF AN UPCOMING TEST (HEPATOBILIARY). PT SEEMED UNCERTAIN ABOUT TEST. THIS NURSE EDUCATED PT ON TEST. WILL CONTINUE TO MONITOR.
--- NOTE | 2020-05-22 06:39 | PC.NURSE ---
LR WAS STARTED LATE D/T BAG NOT BEING EMPTY.
[2020-05-22 07:01] LABS: Glucose Point of Care 116 mg/dL (70-110)
--- NOTE | 2020-05-22 08:19 | PM.CONSULT ---
Providers/Reason For Consult Consulting Physican/Specialty*: hospitalist Reason for Consult*: right ankle swelling Attending Physician: Ronni Guillen MD Primary Care Provider: Chapin Keita MD History of Present Illness History of Present Illness Sharon Sotelo is a 74 year old female who has multiple comorbid conditions came in today after sustaining a fall at home. Patient recently got discharged from the hospital after management of encephalopathy secondary to opioid, she was hydrated with IV fluids, at the time of discharge creatinine was 1.1, she was started on oral steroids for concern of acute gout flare for right ankle pain. She was discharged on 05/12 on prednisone 20 mg, dronabinol 5 mg capsule and gabapentin 9 mg p.o. every 8 hours, Lasix 20 mg was held along meloxicam. Patient is stating that today around 1 AM she got up to go to the bathroom, when she was getting out of her wheelchair to enter the bathroom she felt dizzy and fell on the floor. She is describing this dizziness as lightheadedness she is denying syncope, chest pain shortness of breath seizure-like activities. Patient is stating that she has been going to the bathroom a lot she is denying fever, dysuria. She is drinking 800 cc to 1 L a day but her urine output is quite more than that. Of note, she was admitted for dehydration as well on last admission. She never got diagnosis of diabetes insipidus or polyuria. She is denying vomiting, diarrhea, abdominal pain. Diagnosis in the ER revealed dehydration, hypotension, systolic blood pressure was in 60s which improved after fluid resuscitation, she received 2 L normal saline bolus which improved her blood pressure 225 mmHg, no sign of stroke, no signs of UTI, general looks extremely diluted clear light yellow, EFREN. I was consulted for right ankle swelling Review of Systems General: Reports: ROS unobtainable due to mental status Meds/Allergies Home Medications and Allergies Home Medications Medication Instructions Recorded Confirmed Last Taken Type citalopram 40 mg PO DAILY 12/21/19 05/21/20 05/20/20 08:00 History levothyroxine 150 mcg PO 0600 12/21/19 05/21/20 05/20/20 21:00 History lorazepam 0.5 mg PO TID PRN 12/21/19 05/21/20 05/04/20 History rosuvastatin [Crestor] 40 mg PO BEDTIME 12/21/19 05/21/20 05/20/20 21:00 History Levemir FlexTouch U-100 Insuln 20 unit SUBCUT BEDTIME 02/14/20 05/21/20 05/20/20 21:00 History Eliquis 2.5 mg PO BID 30 Days #60 tab 02/20/20 05/21/20 05/20/20 19:00 Rx pantoprazole 40 mg PO BID PRN #0 tab 02/20/20 05/21/20 05/20/20 17:00 Rx naloxone 4 mg/actuation nasal spray 4 mg INTRANASAL Q3M PRN #2 each 04/23/20 05/21/20 Unknown Rx lisinopril-hydrochlorothiazide 1 tab PO DAILY 05/04/20 05/21/20 05/20/20 08:00 History naloxegol 25 mg PO QAM PRN 05/04/20 05/21/20 Unknown History oxycodone 15 mg PO Q6H PRN 05/04/20 05/21/20 05/04/20 History potassium chloride 20 meq PO DAILY 05/04/20 05/21/20 05/20/20 08:00 History trazodone 100 mg PO BEDTIME 05/04/20 05/21/20 05/20/20 21:00 History dronabinol 5 mg PO TID PRN #14 cap 05/12/20 05/21/20 05/20/20 17:00 Rx furosemide [Lasix] 20 mg PO DAILY 05/20/20 05/21/20 05/20/20 History gabapentin 100 mg PO BID 05/20/20 05/21/20 05/20/20 21:00 History oxycodone-acetaminophen 1 tab PO Q6H PRN 05/20/20 05/21/20 05/20/20 17:00 History Allergies Allergy/AdvReac Type Severity Reaction Status Date / Time Penicillins Allergy rash as a Verified 05/04/20 12:30 child Current Medications Current Medications Generic Name Dose Route Start Last Admin Trade Name Freq PRN Reason Stop Dose Admin Atorvastatin Calcium 80 mg 05/21/20 21:00 05/21/20 21:57 Atorvastatin 40 Mg Tablet PO 80 mg BEDTIME JOAQUÍN Administration Citalopram Hydrobromide 40 mg 05/21/20 09:00 05/21/20 08:09 Citalopram 20 Mg Tablet PO 40 mg DAILY JOAQUÍN Administration Dronabinol 5 mg 05/21/20 05:49 05/21/20 08:19 Dronabinol 2.5 Mg Capsule PO 5 mg TID PRN Administration nausea and vomiting Dextrose/Sodium Chloride 1,000 mls @ 30 mls/hr 05/21/20 05:01 05/21/20 06:29 Dextrose 5%-Sod Chloride 0.45% IV 0 mls/hr .Q24H JOAQUÍN Infusion Lactated Ringer's 1,000 mls @ 100 mls/hr 05/21/20 11:45 05/22/20 05:49 Lactated Ringers IV 100 mls/hr .Q10H JOAQUÍN Administration Vancomycin HCl 1,000 mg/ 250 mls @ 250 mls/hr 05/21/20 14:00 05/21/20 16:45 Sodium Chloride IV 250 mls/hr Q24H JOAQUÍN Administration Protocol Levofloxacin/Dextrose 750 mg in 150 mls @ 100 mls/hr 05/21/20 12:45 05/21/20 13:43 Levaquin-D5w IV 100 mls/hr Q48H JOAQUÍN Administration Protocol Insulin Aspart 0 unit 05/21/20 08:00 05/22/20 07:20 Insulin Aspart 100 Unit/1 Ml SUBCUT Not Given WM&BEDTIME JOAQUÍN Protocol Insulin Detemir 20 unit 05/21/20 21:00 05/21/20 21:58 Insulin Detemir 100 Units/1 Ml SUBCUT 20 unit BEDTIME JOAQUÍN Administration Levothyroxine Sodium 150 mcg 05/21/20 09:00 05/21/20 08:09 Levothyroxine 150 Mcg Tablet PO 150 mcg DAILY JOAQUÍN Administration Morphine Sulfate 4 mg 05/21/20 05:01 05/21/20 05:22 Morphine 4 Mg/Ml Sdv 1 Ml IVP 4 mg Q4H PRN Administration SEVERE PAIN Oxycodone/Acetaminophen 1 tab 05/21/20 16:16 05/21/20 21:57 Oxycodone-Apap 5-325 Mg Tablet PO 1 tab Q4H PRN Administration MODERATE PAIN Pantoprazole Sodium 40 mg 05/21/20 12:30 05/22/20 00:12 Pantoprazole 40 Mg Sdv IVP 40 mg Q12H JOAQUÍN Administration PFSH Acute PFSH: Medical History Acute encephalopathy Acute kidney injury Anxiety -anxiolytics PRN Cervical cancer, FIGO stage EVARISTO Cholelithiasis Chronic anemia CKD (chronic kidney disease) stage 2, GFR 60-89 ml/min Dehydration Diabetes mellitus Diverticulitis of large intestine with perforation and abscess without bleeding Gastroesophageal reflux disease Hypertension Hypothyroidism Low back pain Morbid obesity -BMI-34 kg/m2 Oropharyngeal candidiasis -apparent oral lesions on examination; ongoing odynophagia, dysphagia; symptoms resolved -opportunistic infection in immunocompromised patient -loaded with fluconazole 400 mg x 1, now on 200 mg once daily; due to improvement will switch to PO, plan to treat x 7 days -off IVF hydration; improved oral intake -tolerating GI soft diet -nystatin swish and swallow, magic mouthwash -pain control as needed -appreciate ST evaluation; cleared for regular diet/liquids Rectal fissure -on exam with some intermittent bleeding; no more so far -continue to monitor H/H; drop likely dilutional Surgical History H/O pelvic surgery Cervical biopsy, cystoscopy with biopsy, rigid proctoscopy to 15 cm ([facility]) Family History Mother CAD (coronary artery disease) Father Aneurysm brain Sister Cancer breast cancer Family/Other Cancer breast cancer in niece Social History Smoking and tobacco status: never smoked Alcohol intake: never Household members: children Housing: House Vitals/I&O/Wt Last Vital Signs Temp 98.6 F 05/22/20 03:47 Pulse 72 05/22/20 03:47 Resp 16 05/22/20 03:47 BP 124/53 05/22/20 03:47 Pulse Ox 89 L 05/22/20 03:47 05/21/20 05/22/20 05/22/20 22:59 06:59 14:59 Intake Total 60 / 540 1000 / 1540 Output Total 2200 / 2200 1000 / 3200 875 / 875 Balance -2140 / -1660 0 / -1660 -875 / -875 Weight last 48 hrs Weight 180 lb Physical Exam Narrative: EXAM NARRATIVE: right ankle with minimal swelling. no pain to palpation Urinary Catheter Management^: Oakley: Cath Placed During This Visit: yes Reason for Continuing Indwelling Catheter: Accurate Measurement of Urinary Output in Critically Ill Patients Urinary Catheter Date of Insertion: 05/21/20 Urinary Catheter Time of Insertion: 00:26 Data Micro: Micro: Microbiology 05/21/20 00:53 Blood Culture - Pr eliminary Blood NEGATIVE TO TEGAN E 05/21/20 00:55 Blood Culture - Pr eliminary Blood NEGATIVE TO TEGAN E Coding Level of Care Code Acute Lead Injection Mold Technician for Asha Alanis
[2020-05-22] MEDS: oxyCODONE-APAP 5-325 mg Tablet 1 TAB PO ×3 (09:16→20:25)
[2020-05-22] MEDS: dronabinol 2.5 mg Capsule 5 MG PO ×2 (09:16→15:48)
[2020-05-22] MEDS: citalopram 20 mg Tablet 40 MG PO (09:17)
[2020-05-22] MEDS: levothyroxine 150 mcg Tablet PO (09:17)
--- NOTE | 2020-05-22 09:35 | P.PN_ITS ---
Subjective Subjective: Interval history: Patient is tearful this morning reports significant right ankle pain. Denies abdominal pain or chest pain. Denies shortness of breath. Her MRI did not show any significant findings and Dr. Salamanca not planning any intervention/arthrocentesis. Patient reports that compared to yesterday her pain did not improve. Her swelling appears better this morning. Patient now developed pancytopenia. It appears that patient has episodes of leukopenia off-and-on this year. She apparently has metastatic cervical cancer and this likely plays a major role in patient's right ankle pain and pancytopenia. She had a bone scan earlier this month showing no evidence of metastasis. Patient refused to have HIDA scan. Vitals/I&O/Wt Last Vital Signs Temp 98.2 F 05/22/20 08:00 Pulse 88 05/22/20 08:00 Resp 19 H 05/22/20 09:16 BP 190/72 05/22/20 09:01 Pulse Ox 97 05/22/20 08:00 05/21/20 05/22/20 05/22/20 22:59 06:59 14:59 Intake Total 60 / 540 1000 / 1540 Output Total 2200 / 2200 1000 / 3200 875 / 875 Balance -2140 / -1660 0 / -1660 -875 / -875 Weight last 48 hrs Weight 81.647 kg Physical Exam Const: COMMON NORMALS: no acute distress and patient oriented x3 Resp: COMMON NORMALS: normal respiratory effort and clear to auscultation bilaterally AUSCULTATION: clear to auscultation bilaterally Cardio: COMMON NORMALS: regular rate, regular rhythm and S2 normal heart sound present RATE: regular rate RHYTHM: regular rhythm HEART SOUNDS: S2 normal heart sound present OTHER: No left lower extremity edema. Right lower extremity swollen along with very tender ankle. GI: COMMON NORMALS: Normal to inspection, nondistended, normoactive bowel sounds present and Soft to palpation PALPATION: Yes Soft to palpation OTHER: Nontender on today's exam. Neuro: COMMON NORMALS: patient oriented x3 and no focal motor deficits Urinary Catheter Management^: Oakley: Cath Placed During This Visit: yes Reason for Continuing Indwelling Catheter: Accurate Measurement of Urinary Output in Critically Ill Patients Urinary Catheter Date of Insertion: 05/21/20 Urinary Catheter Time of Insertion: 00:26 Data : 05/22/20 04:12 05/22/20 04:12 Micro: Microbiology 05/21/20 00:53 Blood Culture - Preliminary Blood NEGATIVE TO DATE 05/21/20 00:55 Blood Culture - Preliminary Blood NEGATIVE TO DATE A&P Assessment and plan (1) Hypotension: Status: Acute (2) Acute hypotension: Status: Acute (3) Acute on chronic renal failure: Status: Acute Qualifiers: Acute renal failure type: unspecified Chronic kidney disease stage: unspecified stage Qualified Code(s): N17.9 - Acute kidney failure, unspecified; N18.9 - Chronic kidney disease, unspecified (4) Recurrent falls: Status: Acute (5) Chronic anticoagulation: Status: Acute (6) Cervical cancer: Status: Acute Additional A&P Information hypotension Fall after lightheadedness Recurrent falls Acute on chronic macrocytic anemia Suspected right septic ankle arthritis Epigastric area abdominal pain. Concern for steroid-induced gastritis versus cholecystitis. Metastatic cervical cancer. Full code Cardiac diet DVT prophylaxis SCDs PLAN: Continue holding anticoagulation at this point. Monitor CBC. Will contact Dr. Downey to discuss. Message left. Continue with analgesics. We will continue with antibiotics for now although I highly suspect that metastatic cancer is playing a major role in patient's right ankle pain. I will proceed with further evaluation with lumbar MRI as patient could have spine involvement Attestations Medical Necessity Statement*: Patient with metastatic cancer and severe pain requires close inpatient monitoring, treatment and evaluation. Time Spent in Patient Care: Greater than 35 minutes Coding Level of Care Code Acute Edi Analyst for g Fwd Diagnoses Hypotension I95.9 Acute hypotension I95.9 Acute on chronic renal failure N17.9; N18.9 Acute renal failure type: unspecified Chronic kidney disease stage: unspecified stage Recurrent falls R29.6 Chronic anticoagulation Z79.01 Cervical cancer C53.9
--- NOTE | 2020-05-22 09:52 | MR_ITS ---
WS: [id number] MRI LUMBAR SPINE NONCONTRAST HISTORY: Severe right ankle pain in patient with metastatic cancer. COMPARISON: CT lumbar spine 04/06/2020 TECHNIQUE: Sagittal and axial multisequence imaging is submitted. L5 anterolisthesis by 7.7 mm. Moderate disc space narrowing at L5-S1. No fractures or marrow edema. Mild disc desiccation. Conus terminates normally at L1-2 disc level. L1-L2: Normal. L2-L3: Mild annular disc bulging with facet and ligamentum flavum arthritis. Mild bilateral foraminal narrowing. L3-L4: Mild asymmetric disc bulging with a LEFT foraminal disc protrusion abutting the L3 nerve root. There is also mild encroachment upon the L4 nerve root in the subarticular recess. L4-L5: Mild annular disc bulging. Asymmetric disc bulging to the LEFT foramen contacting the L4 nerve root. No central stenosis. L5-S1: Mild unroofing of the disc. Facet joint arthritis encroaches into the central canal. Mild bila teral foraminal narrowing. Focal disc protrusion in the RIGHT lateral recess. Paravertebral soft tissues are normal. MR/MR lumbar spine wo con* [id number] IMPRESSION: 1. L5 grade 1 anterolisthesis by 7.7 mm. 2. Bilateral foraminal narrowing at L5-S1 with a focal disc osteophyte protrus ion encroaching into the RIGHT lateral recess and abutting the S1 nerve root. 3. LEFT foraminal disc protrusions at L3-4 and L4-5 narrowing the foramen and contacting the L3 and L4 nerve roots. No central stenosis.
[2020-05-22 10:56] LABS: Glucose Point of Care 83 mg/dL (70-110)
--- NOTE | 2020-05-22 10:59 | PC.CHAP ---
Pastoral Care Encounter/Spiritual Assessment Type of Contact [] Declined supervisor metal cans visit [] Patient/Family/Request visit [] Outpatient visit [] Follow-up visit [] Physician referral [] Code/Alert [] Routine visit [] Staff referral [] Actively dying [xx] Patient sleeping [] Family support [] [] Out of room [] Palliative care [] [] Receiving care in room [] Pre-surgical visit [] Trauma [] Long length of stay [] ICU visit [] Other: Relational/Emotional Strength [] Patient feels connected with others/family/visitors/staff [] Distress [] Loneliness/isolation [] Abandonment Spirituality of Patient [] Person of Rebekah [] Attends Sikhism of their Rebekah [] Believes in Prayer [] Reads Bible or Latter-Day materials [] There are Spiritual issues to be addressed Equipment Records Supervisor Interventions [] Prayer [] Active listening [] Non-anxious presence [] Spiritual/emotional support [] Crisis/trauma care [] Spiritual counseling [] Bereavement support [] Provided bereavement packet [] Provided Bible/devotional materials [] Provided toy/stuffed animal, coloring book to patient or family member [] Provided Communion [] Anointing/[place] [] Salvation [] Completed spiritual assessment [] Other: Impact on Illness or Injury [] Angry [] Fearful [] Anxious [] Often cries [] Exhaustion [] Unable to work [] Unable to attend buddhism [] Unable to walk/stand [] Unable to read [] Unable to drive [] Unable to eat/drink [] Unable to sleep [] Unable to be with family [] Patient intubated [] Other: Summary Follow up needed Time spent with patient
--- NOTE | 2020-05-22 11:29 | PC.NURSE ---
Patient states she is experiencing pain in her right leg, rated the pain at a 7. Primary nurse notified.
--- NOTE | 2020-05-22 14:15 | PC.NURSE ---
patient transferred to MRI via stretcher.
[2020-05-22] MEDS: ALPRAZolam 0.25 mg Tablet PO (14:23)
[2020-05-22] MEDS: vancomycin 1,250 MG/250 ML PIGGYBACK 250 MG IV (15:52)
--- NOTE | 2020-05-22 16:00 | PC.NURSE ---
patient back from MRI, vancomycin verified with pharmacy and started, 1 unit of blood received and started.
--- NOTE | 2020-05-22 16:18 | PC.NURSE ---
vancomycin administered late due to patient being in MRI. Coleman from pharmacy notified.
[2020-05-22 17:26] LABS: Glucose Point of Care 89 mg/dL (70-110)
[2020-05-22] MEDS: atorvastatin 40 mg Tablet 80 MG PO (20:25)
[2020-05-22 20:28] LABS: Glucose Point of Care 117 mg/dL (70-110)
[2020-05-22] MEDS: morphine 4 mg/mL SDV 1 mL IVP (23:58)
[2020-05-23] VITALS (13 sets, daily range): BP systolic 141–170; BP diastolic 54–82; PULSE 62–76; RESP 13–22; TEMP 36–37.2; O2SAT 91–95
--- NOTE | 2020-05-23 00:12 | PC.NURSE ---
PT RESTING IN BED. PT C/O 10/10 PAIN IN RIGHT LEG. PRN PAIN MEDICATION GIVEN, PT STILL 10/10. AUTO BODY MAN GAVE PRN MORPHINE TO HELP WITH PAIN. WILL CONTINUE TO MONITOR.
[2020-05-23] MEDS: oxyCODONE-APAP 5-325 mg Tablet 1 TAB PO ×2 (02:46→08:48)
[2020-05-23] MEDS: dronabinol 2.5 mg Capsule 5 MG PO ×2 (02:47→16:49)
[2020-05-23 03:40] LABS: Basophils % 0.3 %; Eosinophils # 0.1 10^3/uL (0.0-0.8); Eosinophils % 3.2 %; Hemoglobin 8.8 g/dL (11.5-15.3); Lymphocytes # 0.6 10^3/uL (0.8-4.8); Lymphocytes % 20.7 %; Mean Corpuscular HGB Conc 30.3 g/dL (30.0-36.0); Mean Corpuscular Hemoglobin 30.1 pg (28.0-34.0); Mean Corpuscular Volume 99.3 fL (81-99); Mean Platelet Volume 9.8 fL (7.4-10.4); Monocytes # 0.5 10^3/uL (0.2-0.9); Monocytes % 14.6 %; Neutrophils # 1.88 10^3/uL (1.8-7.7); Neutrophils % 60.9 %; Nucleated Red Blood Cells % 0 %; Platelet Count 103 10^3/cmm (130-400); Red Blood Count 2.92 10^6/uL (4.1-5.3); Red Cell Distribution Width 14.3 % (12.1-15.1); White Blood Count 3.1 10^3/uL (4.0-10.0)
[2020-05-23 04:10] LABS: Alanine Aminotransferase 26 U/L (0-33); Albumin Level 2.9 g/dL (3.5-5.2); Alkaline Phosphatase 118 IU/L (35-105); Anion Gap 11.2 (5-19); Aspartate Amino Transferase 12 U/L (0-32); Blood Urea Nitrogen 9 mg/dL (8-23); Calcium 9.4 mg/dL (8.5-10.5); Carbon Dioxide 25 mmol/L (22-29); Chloride 110 mmol/L (98-107); Globulin 2.2 g/dL (1.3-4.6); Glucose 89 mg/dL (65-115); Magnesium 1.8 mg/dL (1.7-2.3); Osmolality Calculated 292 mOsm/kg (285-295); Potassium 4.2 mmol/L (3.5-5.1); Sodium 142 mmol/L (136-145); Total Bilirubin 1.7 mg/dL (0.15-1.2); Total Protein 5.1 g/dL (6.6-8.7)
[2020-05-23] MEDS: morphine 4 mg/mL SDV 1 mL IVP ×4 (05:44→19:41)
[2020-05-23 06:49] LABS: Glucose Point of Care 96 mg/dL (70-110)
[2020-05-23] MEDS: citalopram 20 mg Tablet 40 MG PO (08:26)
[2020-05-23] MEDS: levothyroxine 150 mcg Tablet PO (08:26)
[2020-05-23] MEDS: vancomycin 1,250 MG/250 ML PIGGYBACK 250 MG IV (08:42)
[2020-05-23 11:29] LABS: Glucose Point of Care 102 mg/dL (70-110)
[2020-05-23] MEDS: levofloxacin-dextrose 5 % 750 MG/150 ML PREMIX 100 MG IV (13:17)
[2020-05-23] MEDS: pantoprazole 40 mg SDV IVP (13:19)
--- NOTE | 2020-05-23 13:38 | PC.CHAP ---
Pastoral Care Encounter/Spiritual Assessment Type of Contact [] Declined auto air conditioning apprentice visit [] Patient/Family/Request visit [] Outpatient visit [] Follow-up visit [] Physician referral [] Code/Alert [x] Routine visit [] Staff referral [] Actively dying [] Patient sleeping [] Family support [] [] Out of room [] Palliative care [] [] Receiving care in room [] Pre-surgical visit [] Trauma [] Long length of stay [] ICU visit [] Other: Relational/Emotional Strength [] Patient feels connected with others/family/visitors/staff [] Distress [] Loneliness/isolation [] Abandonment Spirituality of Patient [] Person of Rebekah [] Attends Buddhism of their Rebekah [] Believes in Prayer [] Reads Bible or Religion materials [] There are Spiritual issues to be addressed Ux Architect Interventions [] Prayer [] Active listening [] Non-anxious presence [] Spiritual/emotional support [] Crisis/trauma care [] Spiritual counseling [] Bereavement support [] Provided bereavement packet [] Provided Bible/devotional materials [] Provided toy/stuffed animal, coloring book to patient or family member [] Provided Communion [] Anointing/[place] [] Salvation [] Completed spiritual assessment [] Other: Impact on Illness or Injury [] Angry [] Fearful [] Anxious [] Often cries [] Exhaustion [] Unable to work [] Unable to attend latter day [] Unable to walk/stand [] Unable to read [] Unable to drive [] Unable to eat/drink [] Unable to sleep [] Unable to be with family [] Patient intubated [] Other: Summary Time spent with patient
--- NOTE | 2020-05-23 13:55 | PM.PN ---
Subjective Subjective: Interval history: Patient reports that her right lower extremity pain improved but she still requires frequent analgesics. Patient's white blood cell count further declined to 3.1 but platelets and hemoglobin improved. I had discussion with Dr. Downey yesterday. Given her underlying malignancy if we continue to see bone marrow suppression patient may require bone marrow biopsy. So far patient did not show distant metastatic involvement. Discussed with Dr. Salamanca this morning who reviewed patient's spine MRI. No further surgical intervention recommended. She denies abdominal pain. Vitals/I&O/Wt Last Vital Signs Temp 98.0 F 05/23/20 11:15 Pulse 64 05/23/20 11:15 Resp 13 05/23/20 11:15 BP 149/82 05/23/20 11:15 Pulse Ox 95 05/23/20 11:15 05/22/20 05/23/20 05/23/20 22:59 06:59 14:59 Intake Total 2080 / 2080 730 / 730 Output Total 550 / 1425 Balance 2080 / 1205 -550 / 655 730 / 730 Physical Exam Const: COMMON NORMALS: no acute distress and patient oriented x3 Resp: COMMON NORMALS: normal respiratory effort and clear to auscultation bilaterally AUSCULTATION: clear to auscultation bilaterally Cardio: COMMON NORMALS: regular rate, regular rhythm and S2 normal heart sound present RATE: regular rate RHYTHM: regular rhythm HEART SOUNDS: S2 normal heart sound present OTHER: No left lower extremity edema. Right lower extremity much less swollen and slightly less tender ankle. GI: COMMON NORMALS: Normal to inspection, nondistended, normoactive bowel sounds present and Soft to palpation PALPATION: Yes Soft to palpation OTHER: Nontender on today's exam. Neuro: COMMON NORMALS: patient oriented x3 and no focal motor deficits Urinary Catheter Management^: Oakley: Cath Placed During This Visit: yes Reason for Continuing Indwelling Catheter: Accurate Measurement of Urinary Output in Critically Ill Patients Urinary Catheter Date of Insertion: 05/21/20 Urinary Catheter Time of Insertion: 00:26 Data : 05/23/20 03:13 05/23/20 03:13 A&P Assessment and plan (1) Hypotension: Status: Acute (2) Acute hypotension: Status: Acute (3) Acute on chronic renal failure: Status: Acute Qualifiers: Acute renal failure type: unspecified Chronic kidney disease stage: unspecified stage Qualified Code(s): N17.9 - Acute kidney failure, unspecified; N18.9 - Chronic kidney disease, unspecified (4) Recurrent falls: Status: Acute (5) Chronic anticoagulation: Status: Acute (6) Cervical cancer: Status: Acute Additional A&P Information hypotension Fall after lightheadedness Recurrent falls Acute on chronic macrocytic anemia Suspected right septic ankle arthritis Epigastric area abdominal pain. Concern for steroid-induced gastritis versus cholecystitis. Metastatic cervical cancer. Full code Cardiac diet DVT prophylaxis SCDs PLAN: I have discussed with patient concern for possible cholecystitis in view of elevated liver enzymes and her abdominal pain initially. Patient reports that she is not hurting currently and is not interested in further evaluation. Her kidney function improved. We will further monitor liver enzymes and if continues to worsen we will request surgical evaluation. Continue physical therapy. Monitor CBC. We will stop vancomycin and continue Levaquin for now. Discontinue IV fluids. Encouraged oral intake. Attestations Medical Necessity Statement*: Patient with significant pain in her right lower extremity as well as concern for cholecystitis requires close inpatient monitoring and treatment till deemed safe for discharge. Time Spent in Patient Care: 16 - 35 minutes Coding Level of Care Code Acute Instructional Media Services Technician for g Fwd Diagnoses Hypotension I95.9 Acute hypotension I95.9 Acute on chronic renal failure N17.9; N18.9 Acute renal failure type: unspecified Chronic kidney disease stage: unspecified stage Recurrent falls R29.6 Chronic anticoagulation Z79.01 Cervical cancer C53.9
--- NOTE | 2020-05-23 14:23 | PC.NURSE ---
Patient has developed Hives and itching to the left arm in which the levofloxacin has been infusing. Patient is not experiencing any shortness of breath or abnormal breath sounds. Otherwise asymptomatic. Nurse stopped Levofloxacin and alerted Dr Guillen. Was advised to stop the levofloxacin, and administer 25mg PO Benadryl if symptoms worsen.
[2020-05-23] MEDS: ondansetron 2 mg/ML SDV 2 mL 4 MG IVP (14:46)
--- NOTE | 2020-05-23 14:51 | PC.NURSE ---
Continued to monitor patient after discontinuing the levofloxacin. Hives to left arm have started to go away and itching has decreased.
[2020-05-23 16:07] LABS: Glucose Point of Care 136 mg/dL (70-110)
--- NOTE | 2020-05-23 16:36 | PC.NURSE ---
After Lunch, pt felt nauseous. Nurse treated with PRN zofran. Pt stated that the prn marinol given before or with meals is effective at preventing nausea.
[2020-05-23] MEDS: simethicone 80 mg Chew PO (17:24)
--- NOTE | 2020-05-23 19:12 | PC.NURSE ---
Discontinued levofloxacin Per Dr Guillen order. Patient had a mild allergic reaction today. After discontinuing medication the allergic reaction resolved. Characterized by itching and hives.
[2020-05-23 20:28] LABS: Glucose Point of Care 128 mg/dL (70-110)
[2020-05-23 20:28] LABS: Glucose Point of Care 126 mg/dL (70-110)
[2020-05-23] MEDS: atorvastatin 40 mg Tablet 80 MG PO (20:37)
[2020-05-23] MEDS: diphenhydrAMINE 25 mg Capsule PO (20:37)
--- NOTE | 2020-05-23 22:56 | PC.NURSE ---
PT RESTING IN BED. PT C/O 04/11 PAIN IN RIGHT LEG. PRN MORPHINE GIVEN IVP BY RN, PT STILL 04/11. PT STATES THAT MORPHINE DOESN'T HELP. WILL CONTINUE TO MONITOR.
[2020-05-24] VITALS (9 sets, daily range): BP systolic 161–191; BP diastolic 70–90; PULSE 70–83; RESP 11–18; TEMP 36.4–37.1; O2SAT 92–98
[2020-05-24] MEDS: pantoprazole 40 mg SDV IVP ×2 (00:23→12:05)
[2020-05-24] MEDS: oxyCODONE-APAP 5-325 mg Tablet 1 TAB PO (01:17)
[2020-05-24 04:11] LABS: Basophils % 0.3 %; Eosinophils # 0.1 10^3/uL (0.0-0.8); Eosinophils % 2.7 %; Hematocrit 30.6 % (37.0-47.0); Hemoglobin 9.3 g/dL (11.5-15.3); Lymphocytes # 0.5 10^3/uL (0.8-4.8); Lymphocytes % 14.4 %; Mean Corpuscular HGB Conc 30.4 g/dL (30.0-36.0); Mean Corpuscular Hemoglobin 29.5 pg (28.0-34.0); Mean Corpuscular Volume 97.1 fL (81-99); Mean Platelet Volume 9.7 fL (7.4-10.4); Monocytes # 0.4 10^3/uL (0.2-0.9); Monocytes % 11.7 %; Neutrophils # 2.65 10^3/uL (1.8-7.7); Neutrophils % 70.6 %; Nucleated Red Blood Cells % 0 %; Platelet Count 114 10^3/cmm (130-400); Red Blood Count 3.15 10^6/uL (4.1-5.3); Red Cell Distribution Width 14.2 % (12.1-15.1); White Blood Count 3.8 10^3/uL (4.0-10.0)
[2020-05-24 04:33] LABS: Alanine Aminotransferase 21 U/L (0-33); Albumin Level 3.2 g/dL (3.5-5.2); Alkaline Phosphatase 110 IU/L (35-105); Anion Gap 11.1 (5-19); Aspartate Amino Transferase 10 U/L (0-32); Blood Urea Nitrogen 6 mg/dL (8-23); Calcium 9.4 mg/dL (8.5-10.5); Carbon Dioxide 28 mmol/L (22-29); Chloride 108 mmol/L (98-107); Globulin 1.9 g/dL (1.3-4.6); Glucose 118 mg/dL (65-115); Magnesium 1.7 mg/dL (1.7-2.3); Osmolality Calculated 297 mOsm/kg (285-295); Potassium 3.1 mmol/L (3.5-5.1); Sodium 144 mmol/L (136-145); Total Bilirubin 1.3 mg/dL (0.15-1.2); Total Protein 5.1 g/dL (6.6-8.7)
[2020-05-24] MEDS: morphine 4 mg/mL SDV 1 mL IVP ×3 (05:29→16:35)
--- NOTE | 2020-05-24 06:41 | PC.NURSE ---
PT IS RESTING IN BED. PT C/O 10/10 PAIN IN THE RIGHT LEG. RN GAVE PRN MORPHINE. WILL GIVE REPORT TO DAY SHIFT.
[2020-05-24 06:44] LABS: Glucose Point of Care 120 mg/dL (70-110)
[2020-05-24] MEDS: dronabinol 2.5 mg Capsule 5 MG PO ×2 (07:49→16:35)
[2020-05-24] MEDS: citalopram 20 mg Tablet 40 MG PO (08:39)
[2020-05-24] MEDS: levothyroxine 150 mcg Tablet PO (08:39)
[2020-05-24] MEDS: potassium chloride ER 10 mEq Tablet 40 MEQ PO (09:37)
--- NOTE | 2020-05-24 10:03 | PC.SOCIAL ---
IMM Update Pg. 2 of IMM updated and reviewed with patient who verbalized understanding. Copy provided to patient.
[2020-05-24 11:55] LABS: Glucose Point of Care 96 mg/dL (70-110)
--- NOTE | 2020-05-24 14:47 | P.PN_ITS ---
Subjective Subjective: Interval history: Patient reports today that her pain is more severe in her right lower extremity. Reports that she was scheduled to see pain clinic for nerve ablation but she ended up being admitted to the hospital. Her pancytopenia is improving. Bilirubin and alkaline phosphatase also improved. Patient denies abdominal pain. She refused PT and OT earlier today. She refused removing Oakley catheter yesterday. She has low initiative. Patient yesterday developed some itching at the IV site during Levaquin infusion. This was discontinued. Vitals/I&O/Wt Last Vital Signs Temp 97.7 F 05/24/20 12:00 Pulse 83 05/24/20 12:00 Resp 18 05/24/20 12:05 BP 191/90 05/24/20 12:00 Pulse Ox 95 05/24/20 12:00 05/23/20 05/24/20 05/24/20 22:59 06:59 14:59 Intake Total 120 / 925 240 / 240 Output Total 800 / 800 Balance -680 / 125 240 / 240 Physical Exam Const: COMMON NORMALS: no acute distress and patient oriented x3 Resp: COMMON NORMALS: normal respiratory effort and clear to auscultation bilaterally AUSCULTATION: clear to auscultation bilaterally Cardio: COMMON NORMALS: regular rate, regular rhythm and S2 normal heart sound present RATE: regular rate RHYTHM: regular rhythm HEART SOUNDS: S2 no rmal heart sound present OTHER: No left lower extremity edema. Trace right lower extremity swelling GI: COMMON NORMALS: Normal to inspection, nondistended, normoactive bowel sounds present and Soft to palpation PALPATION: Yes Soft to palpation OTHER: Nontender on today's exam. Neuro: COMMON NORMALS: patient oriented x3 and no focal motor deficits Urinary Catheter Management^: Oakley: Cath Placed During This Visit: yes Reason for Continuing Indwelling Catheter: Accurate Measurement of Urinary Output in Critically Ill Patients Urinary Catheter Date of Insertion: 05/21/20 Urinary Catheter Time of Insertion: 00:26 Data : 05/24/20 03:50 05/24/20 03:50 A&P Assessment and plan (1) Hypotension: Status: Acute (2) Acute hypotension: Status: Acute (3) Acute on chronic renal failure: Status: Acute Qualifiers: Acute renal failure type: unspecified Chronic kidney disease stage: unspecified stage Qualified Code(s): N17.9 - Acute kidney failure, unspecified; N18.9 - Chronic kidney disease, unspecified (4) Recurrent falls: Status: Acute (5) Chronic anticoagulation: Status: Acute (6) Cervical cancer: Status: Acute Additional A&P Information hypotension Fall after lightheadedness Recurrent falls Acute on chronic macrocytic anemia Suspected right septic ankle arthritis Epigastric area abdominal pain. Concern for steroid-induced gastritis versus cholecystitis. Metastatic cervical cancer. Full code Cardiac diet DVT prophylaxis SCDs PLAN: It appears that patient responded to antibiotics and I still think that cholecystitis is still a possibility. I will start patient on oral cefdinir and Flagyl. Discussed regarding importance of decreasing amount of opioids she takes. We have discussed regarding importance of following up with pain clinic. She is not interested in nursing facility and wants to return home when ready to be discharged. Discussed regarding importance of removing Oakley catheter to avoid infection and she agreed. Monitor and make sure patient can urinate. Encouraged physical therapy. Attestations Medical Necessity Statement*: Patient with intractable pain and suspected cholecystitis requires close inpatient monitoring and treatment. Time Spent in Patient Care: 16 - 35 minutes Coding Level of Care Code Acute Gravity Meter Operator for g Fwd Diagnoses Hypotension I95.9 Acute hypotension I95.9 Acute on chronic renal failure N17.9; N18.9 Acute renal failure type: unspecified Chronic kidney disease stage: unspecified stage Recurrent falls R29.6 Chronic anticoagulation Z79.01 Cervical cancer C53.9
[2020-05-24] MEDS: metroNIDAZOLE 500 MG Tablet PO (15:47)
--- NOTE | 2020-05-24 16:23 | PC.NURSE ---
after leon was removed pt assisted to bedside commode. pt voided 250. pt transferred back to bed. pt started that she wanted to go home today instead of waiting until tomorrow.
[2020-05-24 17:04] LABS: Glucose Point of Care 98 mg/dL (70-110)
[2020-05-24] MEDS: cefdinir 300 MG CAPSULE PO (17:53)
--- NOTE | 2020-05-24 18:27 | PM.DCS ---
Discharge Providers Date of Admission: 05/21/20 13:05 Date of Discharge: May 24, 2020 Attending Provider at Admission: Ras Escobar MD Attending Provider at Discharge: Ronni Guillen MD Primary Care Provider: Chapin Keita MD Diagnoses at Discharge Discharge Diagnosis (1) Acute hypotension: Status: Acute Permanent problem details: This is likely related to opioid medications and possibly secondary to infection. (2) Acute on chronic renal failure: Status: Acute Qualifiers: Acute renal failure type: unspecified Chronic kidney disease stage: unspecified stage Qualified Code(s): N17.9 - Acute kidney failure, unspecified; N18.9 - Chronic kidney disease, unspecified (3) Recurrent falls: Status: Acute (4) Chronic anticoagulation: Status: Acute Permanent problem details: Currently discontinued due to pancytopenia (5) Cervical cancer: Status: Acute (6) Cholecystitis: Status: Acute Permanent problem details: Highly suspected. (7) Pancytopenia: Status: Acute Permanent problem details: Suspected to be multifactorial with infection and cancer playing a role. Reason for Visit Reason for Visit: LOW BP Hospital Course Hospital Course Patient with history of opiate-induced encephalopathy presents with fall and also chronic right lower extremity pain. She was further evaluated with lumbar spine MRI and right ankle MRI. She does have severe spinal stenosis and was ev my discharge instructions aluated by Dr. Nelson with no surgical intervention recommended. There was a concern for acute cholecystitis but patient refused to have HIDA scan despite explaining the reason of appropriate evaluation. She did have epigastric area pain during my evaluation which rather quickly improved with antibiotics. She noted to have pancytopenia which also shows evidence of improvement. This also was suggestive of being driven by response to infection. I will continue patient on Omnicef and Flagyl for 7 more days. Patient had episodes of itching at the site of infusion of Levaquin so it was discontinued. No other reaction was observed. She has appointment to see pain management. She was able to urinate without difficulty and wants to go home. She has appointment to see Dr. Downey and Dr. Keita. She is requesting for Percocet for pain control before she can see her doctors and 20 tablets of Percocet to be used every 4 hours as needed will be prescribed. Patient was told to limit as much as possible and she voiced understanding. Because of pancytopenia I will hold Eliquis. Risks and benefits were discussed with patient and she agreed. We will let Dr. Downey to restart when felt appropriate. Physical Exam Narrative: EXAM NARRATIVE: As mentioned in my note earlier today. Please note that the Oakley catheter was removed and patient urinated without difficulty after that. Urinary Catheter Management^: Oakley: Cath Placed During This Visit: yes, but has since been removed by the nurse Reason for Continuing Indwelling Catheter: Decision to DC Catheter Urinary Catheter Date of Insertion: 05/21/20 Urinary Catheter Time of Insertion: 00:26 Date Urinary Catheter Removed: 05/24/20 Time Urinary Catheter Discontinued: 14:00 Discharge Data Data Completed and Pending: Completed Studies During Hospitalization Category Date Time Status CT abdomen pelvis w con* [id number] Stat Cat Scan 05/20/20 23:[address] head wo con* 7 [id number] Stat Cat Scan 05/20/20 23:04 Completed XR chest 1V caro ble [id number] Stat Exams 05/20/20 22:54 Completed MR ankle RT wo co n* [id number] Urgent MRI 05/21/20 12:43 Completed MR lumbar spine w o con* [id number] Routi ne MRI 05/22/20 09:52 [place] [id number] Routin e Ultrasound 05/21/20 12:46 Completed US gall bladder 7 6705 Urgent Ultrasound 05/21/20 02:05 Completed Pending at discharge Category Date Time Status Blood Culture Sta t Lab 05/20/20 22:55 Results Complete Blood Co unt w/Auto AM LABS Lab 05/25/20 04:00 Ordered Comprehensive Met abolic Panel AM LA BS Lab 05/25/20 04:00 Ordered Magnesium AM LABS Lab 05/25/20 04:00 Ordered Vancomycin Trough Timed Lab 05/24/20 19:00 Ordered Labs from last 24 hours 05/24/20 05/24/20 05/24/20 16:51 11:22 06:32 WBC RBC Hgb Hct MCV MCH MCHC RDW Plt Count MPV Neut % (Auto) Lymph % (Auto) [place] % (Auto) Eos % (Auto) Baso % (Auto) Neut # (Auto) Lymph # (Auto) [place] # (Auto) Eos # (Auto) Baso # (Auto) Nucleated RBC % (a uto) Nucleated RBCs # Sodium Potassium Chloride Carbon Dioxide Anion Gap BUN Creatinine GFR Calculation Glucose POC Glucose 98 96 120 Calculated Osmolal ity Calcium Magnesium Total Bilirubin AST ALT Alkaline Phosphata se Total Protein Albumin Globulin 05/24/20 05/24/20 05/23/20 03:50 03:50 20:25 WBC 3.8 L RBC 3.15 L Hgb 9.3 L Hct 30.6 L MCV 97.1 MCH 29.5 MCHC 30.4 RDW 14.2 Plt Count 114 L MPV 9.7 Neut % (Auto) 70.6 Lymph % (Auto) 14.4 [place] % (Auto) 11.7 Eos % (Auto) 2.7 Baso % (Auto) 0.3 Neut # (Auto) 2.65 Lymph # (Auto) 0.5 L [place] # (Auto) 0.4 Eos # (Auto) 0.1 Baso # (Auto) 0.0 Nucleated RBC % (a uto) 0 Nucleated RBCs # 0.0 Sodium 144 Potassium 3.1 L Chloride 108 H Carbon Dioxide 28 Anion Gap 11.1 BUN 6 L Creatinine 0.9 GFR Calculation Not Reportable Glucose 118 H POC Glucose 126 Calculated Osmolal ity 297 H Calcium 9.4 Magnesium 1.7 Total Bilirubin 1.3 H AST 10 ALT 21 Alkaline Phosphata se 110 H Total Protein 5.1 L Albumin 3.2 L Globulin 1.9 05/23/20 20:22 WBC RBC Hgb Hct MCV MCH MCHC RDW Plt Count MPV Neut % (Auto) Lymph % (Auto) [place] % (Auto) Eos % (Auto) Baso % (Auto) Neut # (Auto) Lymph # (Auto) [place] # (Auto) Eos # (Auto) Baso # (Auto) Nucleated RBC % (a uto) Nucleated RBCs # Sodium Potassium Chloride Carbon Dioxide Anion Gap BUN Creatinine GFR Calculation Glucose POC Glucose 128 Calculated Osmolal ity Calcium Magnesium Total Bilirubin AST ALT Alkaline Phosphata se Total Protein Albumin Globulin Vitals: Last Vital Signs Temp 98.4 F 05/24/20 16:00 Pulse 75 05/24/20 16:00 Resp 17 05/24/20 16:35 BP 162/70 05/24/20 16:00 Pulse Ox 96 05/24/20 16:00 Discharge Plan Discharge Patient Disposition: Home Health Service Condition: Stable Prescriptions: New oxycodone-acetaminophen 5-325 mg Tablet 1 tab PO Q4H PRN (Reason: Moderate Pain) Qty: 20 RF: 0 metronidazole 500 mg Tablet 500 mg PO TID Qty: 21 RF: 0 lisinopril 20 mg tablet 20 mg PO DAILY Qty: 30 RF: 0 cefdinir 300 mg Capsule 300 mg PO BID Qty: 14 RF: 0 Continued naloxone 4 mg/actuation spray,non-aerosol 4 mg INTRANASAL Q3M PRN (Reason: opioid overdose) Qty: 2 RF: 0 Levemir FlexTouch U-100 Insuln 100 unit/mL (3 mL) Insulin Pen 20 unit SUBCUT BEDTIME RF: 0 pantoprazole 20 mg tablet,delayed release (DR/EC) 40 mg PO BID PRN (Reason: stomach acid/heartburn) Qty: 0 RF: 0 citalopram 40 mg tablet 40 mg PO DAILY RF: 0 levothyroxine 150 mcg tablet 150 mcg PO 0600 RF: 0 lorazepam 1 mg tablet 0.5 mg PO TID PRN (Reason: Nausea) RF: 0 rosuvastatin [Crestor] 40 mg tablet 40 mg PO BEDTIME RF: 0 trazodone 50 mg tablet 100 mg PO BEDTIME RF: 0 potassium chloride 10 mEq tablet extended release 20 meq PO DAILY RF: 0 naloxegol 25 mg tablet 25 mg PO QAM PRN (Reason: Constipation) RF: 0 dronabinol 5 mg capsule 5 mg PO TID PRN (Reason: nausea and vomiting) Qty: 14 RF: 0 furosemide [Lasix] 20 mg Tablet 20 mg PO DAILY RF: 0 Hold Instructions: Resume on 05/27/20. gabapentin 100 mg capsule 100 mg PO BID RF: 0 Discontinued Eliquis 5 mg Tablet 2.5 mg PO BID 30 Days Qty: 60 RF: 0 lisinopril-hydrochlorothiazide 20-25 mg tablet 1 tab PO DAILY RF: 0 oxycodone 5 mg tablet 15 mg PO Q6H PRN (Reason: pain) RF: 0 oxycodone-acetaminophen 7.5-325 mg Tablet 1 tab PO Q6H PRN (Reason: Pain) RF: 0 Discharge Orders: Discharge Order (Routine); Ordered 05/24/20 Ordered By: Ronni Guillen Referrals: [facility] [Outside] Chapin Keita MD [Primary Care Provider] - 4-7 days ([facility] will be calling to schedule a hospital followup with Dr. Keita to be seen in 4 to 7 days. If you don't hear from them by Monday afternoon, please give them a call. Thank you) Gato Downey MD [Hospitalist] - 06/01/20 9:30 am (Please keep the appointment at with Dr. Downey on June 01 at 9:30am) Alfonzo David MD [Physician] - 1-3 days (Pain Management will be calling to set up a hospital followup to be seen in 1 to 3 days. If you don't hear from them by Monday, please give them a call. Thank you) Discharge Diet: Advance as tolerated Discharge Activity: Increase activity as tolerated Patient Instructions: Lisinopril (By mouth), Oxycodone/Acetaminophen (By mouth), Metronidazole (By mouth), Cefdinir (By mouth) Activity Restrictions/Additional Instructions: Please call your doctor present to the emergency department if your condition worsens or you develop diarrhea, lightheadedness, fatigue or see blood in your stool or black stool. Please decrease amount of opioid medications, Percocet use as we have discussed. Discharge Attestations Time Spent in Discharge Care*: greater than 30 min Status at Discharge: Cognitive status at discharge: cognitively intact, Behavioral status at discharge: cooperative, Quality Metrics Clinical Quality Measures During this hospital stay, did patient experience: None Coding Level of Care Code Acute Nut Dehydrator Operator for Asha Alanis Diagnoses Acute hypotension I95.9 Acute on chronic renal failure N17.9; N18.9 Acute renal failure type: unspecified Chronic kidney disease stage: unspecified stage Recurrent falls R29.6 Chronic anticoagulation Z79.01 Cervical cancer C53.9 Cholecystitis K81.9 Pancytopenia D61.818
== END 2020-05-24 18:50 | disposition home health service (06) | DRG 312 ==
LOC: ER 05-21 03:52 → CSU 05-21 04:08
PROVIDERS: Admitting Provider Internal Medicine; Emergency Provider Emergency Medicine; PCP Family Medicine; Visit Provider Internal Medicine
DX: I95.2 Hypotension due to drugs (principal); G93.40 Encephalopathy, unspecified; N17.9 Acute kidney failure, unspecified; B37.0 Candidal stomatitis; M00.871 Arthritis due to other bacteria, right ankle and foot; D61.818 Other pancytopenia; R29.6 Repeated falls; E86.0 Dehydration; K80.20 Calculus of gallbladder without cholecystitis without obstruction; F41.9 Anxiety disorder, unspecified; C53.9 Malignant neoplasm of cervix uteri, unspecified; D53.9 Nutritional anemia, unspecified; E11.22 Type 2 diabetes mellitus with diabetic chronic kidney disease; I12.9 Hypertensive chronic kidney disease with stage 1 through stage 4 chronic kidney disease, or unspecified chronic kidney disease; N18.2 Chronic kidney disease, stage 2 (mild); K21.9 Gastro-esophageal reflux disease without esophagitis; E03.9 Hypothyroidism, unspecified; M54.5 Low back pain; E66.01 Morbid (severe) obesity due to excess calories; Z68.32 Body mass index [BMI] 32.0-32.9, adult; K60.2 Anal fissure, unspecified; T40.605A Adverse effect of unspecified narcotics, initial encounter; T40.2X5A Adverse effect of other opioids, initial encounter
CPT/HCPCS: 12345; 36415; 36416; 51702; 70450; 71045; 72148; 73721; 74177; 76705; 80048; 80053; 81001; 82533; 82550; 82570; 82962; 83605; 83690; 83735; 84300; 84443; 84484; 85025; 85610; 85730; 86850; 86900; 86920; 87040; 93005; 93971; 96360; 96372; 96375; 97110; 97161; 99283; C9113; G0378; J1815; J1956; J2270; J2405; J3370; J7030; J7040; J7050; J7799; P9016; Q0167; Q9967

== ENCOUNTER 2020-06-01 05:12 | Outpatient (RCR) | payer MEDICARE, MEDICAID, SELFPAY ==
--- NOTE | 2020-05-29 16:21 | ONC FU_ITS ---
[facility] Patient Note Patient: Sharon Sotelo Unit #: [id number]: 1945 Dictated By: Sesar BreenDate of Visit: May 25, 2020 Onc MED Follow-Up/Prog Note Chief Complaint: Cervical cancer. 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 On 05/03/2019 she had presented to the emergency room with pain in the left lower quadrant/left flank area and difficulty voiding. Her CT abdomen/pelvis showed a soft tissue mass which was involving the left superior lateral aspect of the urinary bladder and was contiguous with the cervix. It measured at least 4 x 4.9 x 5.8 cm. There was associated ureterovesical junction obstruction and moderate left hydronephrosis. There was associated adenopathy including a left inferior pelvic lymph node measuring 1 x 1.5 cm, a left para-aortic lymph node measuring 1.4 cm, a common iliac lymph node measuring 1.1 cm, and bilateral external iliac lymph nodes measuring up to 2.1 x 4.2 cm on the right and 1 x 1.7 cm on the left. She was referred to Dr. Ybarra in [place]. On 06/04/2019 she underwent exam under anesthesia with cervical biopsy, cystoscopy with biopsy, and rigid proctoscopy to 15 cm. Her tumor appeared to be fixed to the left pelvic sidewall and there was noted to be right-sided parametrial disease. On the cystoscopy the tumor did appear to be involving the bladder. The cervical biopsy and the bladder biopsy both showed poorly differentiated squamous cell carcinoma. She was recommended to undergo chemoradiation. She began radiation concurrently with weekly cisplatin chemotherapy on 07/15/2019. She experienced no acute toxicity with her initial infusion of cisplatin. She was then able to continue her treatment weekly, completing her 6th infusion of cisplatin on 09/02/2019. She completed radiation on 09/03/2019 to a total dose of 5940 cGy. During her treatment she did require some growth factor support with Neupogen. She also required IV hydration on multiple occasions for nausea and poor oral intake. Dr Downey had seen her for a follow-up visit on 09/18/2019. At that point she was really doing quite poorly, as she had gotten very weak and she was having significant anorexia/nausea, so that her oral intake was very poor. She was significantly pancytopenic with hemoglobin 6.4 g, white blood cell count 2000, and platelet count 66,000. She was transfused and she was given further IV hydration and supportive care measures. During subsequent follow-up there was further decline in the granulocyte count, nadiring at approximately 1000. She then began to show gradual improvement in her clinical status. However, during that time she had been to the radiation oncologist in [place] on 2 occasions, and on both she was declined for her brachytherapy. She eventually opted against treatment. Her other medical illnesses include hypertension, type 2 diabetes, and hypothyroidism. She also has chronic anxiety. She is a non-smoker. INTERIM HISTORY: On 12/21/2019 she was admitted to the hospital with complaints of chest pain in association with eating and rectal pain/bleeding. She had evidence of oral pharyngeal candidiasis and there was associated dehydration and acute renal injury. She also was significantly hyperglycemic. She had symptomatic improvement with IV hydration and IV fluconazole. Also was improvement in her renal function. She remained moderately anemic, but above transfusion threshold. The rectal bleeding was thought to be most likely due to anal fissure, and that improved with conservative management. Following discharge from the hospital, she did start Levemir 20 units daily at bedtime along with regular insulin per sliding scale. She began tapering off dexamethasone. She was then seen Dr. Kieta with pain in the left lower quadrant of her abdomen. Her CT abdomen/pelvis on 02/11/2020 showed wall thickening of the sigmoid colon with associated inflammatory change and fluid. There were diverticula noted, and it was felt that the appearance was most consistent with sigmoid colon diverticulitis. There was no evidence of recurrent or metastatic neoplasm. She began on empiric antibiotic coverage with ciprofloxacin and metronidazole. Despite that, her symptoms worsened. On 02/14/2020 she was admitted to the hospital with abdominal abscess in association with bowel perforation. She was given antibiotic coverage with ceftazidime, vancomycin, and metronidazole. She was significantly anemic, requiring PRBC transfusion. She was found to have positive stool FOB, and she was taken off apixaban. She improved clinically. On 02/20/2020 she was discharged home to continue outpatient antibiotic coverage with ertapenem 1 g IV daily. She restarted apixaban with the dosage reduced to 2.5 mg twice daily. I had seen her for a follow-up visit on 03/04/2020. At that point she was still on her antibiotic therapy, and she was showing clinical improvement. Her further clinical course was complicated by development of pain in her right lower back and right leg, which was clinically felt to be consistent with sciatica. She has had multiple ER visits for it this month. Her right hip x-ray on 04/04/2020 showed radiolucencies in the proximal femoral shaft with some endosteal scalloping and possibly involvement of the lateral cortex and medullary canal felt to be most consistent with metastatic disease versus myeloma versus osteomyelitis. Lumbar spine CT on 04/12/2020 showed degenerative changes but no evidence of metastatic disease. CT abdomen/pelvis on 04/21/2020 showed no evidence of residual or recurrent diverticular abscess. There was evidence of diffuse endometrial thickening which was felt to be suspicious for neoplasia, but the findings were similar to the previous study from March 2020. CT of the right femur on 04/22/2020 showed no evidence of metastatic lesions in the right proximal femur and no evidence of pathologic fracture. A small amount of endosteal scalloping of the right proximal femoral shaft was present on the prior PET/CT scans and the appearance was noted to be unchanged. This was felt to most likely be a benign finding. Ms. Sotelo is here for an unscheduled visit today. She was admitted to [facility] on 05/21/2020 with complaints of acute hypotension likely related to opioid medications or possibly secondary to infection . She had acute chronic renal failure. Per hospital discharge records she presented with fall and also chronic right lower extremity pain. 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 She has severe spinal stenosis and apparently that there is no option for surgical interventions at this time. There is acute concern for acute cholecystitis but she refused to have a HIDA scan she did have epigastric pain during evaluation which improved with antibiotics. She was noted to have pancytopenia which also showed evidence of improvement. She was discharged on Omnicef and Flagyl she had itching at the site of infusion of Levaquin so it was discontinued. She has appointment for pain management per hospital discharge records. She was discharged on Percocet. Because of the pancytopenia her Eliquis was held. Her family called today insisting to be seen by Dr. Downey unfortunately Dr. Downey was unavailable to see her today so was asked to see her instead. Her complaints are persistent pain. They are very concerned that she is no longer on her Eliquis. She has nausea and no appetite???she is not taking Marinol???she is unsure what to do with all of her medications. The most of all her pain is uncontrolled with the Percocet. She states she has ate very little but she is only been home less than 48 hours. She denies any fever or chills. She is had no vomiting. She denies diarrhea or constipation at present. Her pain when asked today on a scale of 0-10 is at a 7. She mostly complains of her back and lower leg. Her ECOG is 2-3 today. She is alert and oriented and answers questions appropriately. She can give a good history as well. She is accompanied by her daughter today who verbalized understanding of our conversations. Past Medical History: Anxiety Hyperlipidemia Hypertension Type II diabetes Past Surgical History: Attempted placement of PowerPort venous access device in 2019 Exam under anesthesia with cervical biopsy, rigid proctoscopy to 15 cm, and cystoscopy in 2019 Allergies: Penicillins Medications: Citalopram Hydrobromide 1 Tablet (of 40 mg) Oral daily Dronabinol 1 Capsule (of 5 mg) Oral t.i.d. PRN Gabapentin 1 Capsule (of 100 mg) Oral b.i.d. HYDROcodone-Acetaminophen 1 (7.5-325 mg) Tablet Oral q 6 hours PRN Lasix 1 Tablet (of 20 mg) Oral daily Levemir 20 Units (of 100 Units/mL) Subcutaneous at bedtime Levothyroxine Sodium 1 (150 mcg) Tablet Oral daily Lisinopril 1 Tablet (of 20 mg) Oral daily LORazepam 1 Tablet (of 1 mg) Oral t.i.d. PRN Naloxegol Oxalate 1 Tablet (of 25 mg) Oral daily Naloxone HCl 1 [place](s) (of 4 mg/0.1mL) Liquid Nasal PRN Pantoprazole Sodium 1 Tablet (of 40 mg) Tablet, enteric coated Oral b.i.d. Potassium Chloride ER 1 Tablet (of 10 meq) Tablet, controlled release Oral daily Rosuvastatin Calcium 1 Tablet (of 40 mg) Oral at bedtime traZODone HCl 1 Tablet (of 50 mg) Oral at bedtime Family History: Ms. Sotelo's mother is . Ms. Sotelo's father is . Ms. Sotelo has 2 sisters: 2 . Father had brain aneurysm. Mother of heart attack at age 74. He had 2 sisters who from breast cancer and a nedemetris (one of their daughters) also from breast cancer. Social History: Ms. Sotelo is single and she is a disabled. Ms. Sotelo has never smoked. She has no history of drinking. She is a non-smoker. She does not drink alcohol. Review Of Symptoms: Constitutional Denies fevers, chills, night sweats, excessive fatigue or weight loss. Tired alot but recovers with rest-some. Allergic/Immunologic No reactions. Eyes Denies significant visual changes. No diplopia. No amaurosis. ENMT Denies changes in hearing, sore throat, mouth sores, difficulty or changes in swallowing ability, and/or sinus drainage. Endocrine No diabetes, thyroid disease or hormone replacement. Denies hot flashes or night sweats. Hematologic/Lymphatic Denies easy bruising or bleeding. The patient denies any tender or palpable lymph nodes. Respiratory Denies dyspnea on exertion, chest pain, cough or hemoptysis. Denies orthopnea. Cardiovascular Denies anginal chest pain, palpitations or orthopnea. Gastrointestinal Denies nausea, vomiting, GI bleeding, or constipation. Has had intermittent diarrhea but resolved currently. Imodium does control it when she takes it. Intermittent nausea-Zofran takes care of it. Genitourinary (F) No hematuria, hesitancy, incontinence, vaginal bleeding, discharge or other problems with urination. Musculoskeletal Denies joint pain, swelling or redness. No decreased range of motion. Integumentary Denies chronic rashes, inflammation, ulcerations or skin changes. Neurologic Denies headache, blurred vision, and no areas of focal weakness or numbness. No sensory problems. Psychiatric Denies insomnia, depression, cornelio or mood swings. Vital Signs: Performed on May 25, 2020 14:50 Height - 66.00 in Weight - 183.6 lbs (HIGH) BSA - 1.93 sq.m BMI - 29.63 Temperature - 97.8 F (LOW) Pulse - 88 /min Respiration - 24 /min BP - 137/62 mm(hg) O2 Sat - 96 % Pain - 5,2 - Ambulatory/capable of all self-care, unable to perform any work activities. Up and about more than 50% of waking hours. (ECOG) Physical Examination: Constitutional Alert, oriented, no acute distress. Skin pink/pale, warm and dry. Head Normocephalic; atraumatic. Eyes Conjunctivae and sclerae are clear and without icterus. Pupils are reactive and equal. ENMT No oral exudates, ulcers, masses, thrush or mucositis. Oropharynx clear. Tongue normal. Neck Supple without masses or thyromegaly. No jugular venous distension. Hematologic/Lymphatic No petechiae or purpura. No tender or palpable lymph nodes in the cervical or supraclavicular areas. Respiratory Lungs are clear to auscultation without rhonchi or wheezing. Cardiovascular Regular rate and rhythm of heart without clicks, gallops or rubs. She does have a soft systolic murmur. Abdomen Non-tender, non-distended, no masses or ascites. Good bowel sounds noted in all quads. No guarding or rebound tenderness. No pulsatile masses. Back/Spine Non-tender to palpation. Extremities No visible deformities, no cyanosis, clubbing or edema. Musculoskeletal No tenderness or swelling, normal range of motion without obvious weakness. Integumentary No rashes or lesions. Neurologic No sensory or motor deficits, normal cerebellar function, normal gait. Psychiatric Alert and oriented times three. Coherent speech. Verbalizes understanding of our discussions today. Laboratory:1. 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 2. On 06/04/2019 she underwent exam under anesthesia with cervical biopsy, cystoscopy with biopsy of the bladder, and rigid proctoscopy to 15 cm. Her other medical illnesses include: 3. Hypertension. 4. Type 2 diabetes. 5. Hypothyroidism. 6. Chronic anxiety. She began radiation concurrently with weekly cisplatin chemotherapy on 07/15/2019. She had some nausea and fatigue with the initial chemotherapy treatment, but she was able to tolerate it with acceptable toxicity, and she continued her treatment weekly, completing her 6th infusion of cisplatin on 09/02/2019. She completed radiation on 09/03/2019 to a total dose of 5940 cGy. During her treatment she required growth factor support with Neupogen, and she also required frequent IV hydration. She had unusually severe toxicity from the treatment, as she then continued to have weakness and nausea/anorexia. She developed worsening pancytopenia, significant enough to require transfusion. Her restaging PET/CT on 10/26/2019 showed resolution of the primary cervical mass and interval resolution of bilateral pelvic and left retroperitoneal lymph nodes. There was improvement but residual activity in a right obturator index node. Overall, the findings were felt to be consistent with a partial response to therapy. During follow-up she did show gradual recovery. However, due to her treatment related toxicity she was not able to undergo brachytherapy. On 12/21/2019 she was admitted to the hospital with oral pharyngeal candidiasis in association with hyperglycemia. She had associated dehydration and acute renal injury. She also is having symptoms of rectal fissure. She had symptomatic improvement on treatment with fluconazole and with IV hydration. Following discharge her blood sugar control improved significantly on a combination of Levemir and regular insulin per sliding scale, and she began to gradually taper off dexamethasone. She had recently presented with new pain in the left lower quadrant of the abdomen. CT findings were consistent with sigmoid colon diverticulitis, for which she was started on antibiotic therapy. However, her condition continued to worsen and on 02/14/2020 she was admitted to the hospital with intra-abdominal abscess associated with perforated diverticulum. She improved on IV antibiotic therapy, but she did require PRBC transfusion. She also was found to have positive IFOB. Her apixaban was initially put on hold, but restarted at 2.5 mg twice daily at discharge on 02/20/2020. She continued outpatient antibiotic therapy with ertapenem 1 g IV daily. During follow-up she improved clinically and a repeat CT scan showed complete resolution of the abscess. However, her further clinical course has been complicated by development of severe pain in her right sciatic distribution. A specific underlying cause has not been determined. Thus far there is no definite evidence of metastatic disease by CT scan. Her most recent CT abdomen/pelvis did show evidence of endometrial thickening, but that may just be due to radiation fibrosis. Plan: 1. She is encouraged to keep her pain management appointment. 2. She will return her gabapentin 100 mg 3 times daily which is what she was on prior to discharge. Her family states that they did not feel this made her sedated or confused. 3. For now she will resume her Eliquis at 2.5 mg twice daily. Her platelet count on 05/24/2020 was 114,000, hemoglobin 9.3 white count 3.8 ANC was 2650. 4. I have asked her to resume her Marinol 5 mg up to 3 times daily for appetite/nausea. 5. Reviewing the hospital discharge she was encouraged to continue the metronidazole 500 mg 3 times daily. 6. For pain management Dr. Downey has suggested giving her Duragesic patch 25 mics every 72 hours and using Percocet 7.5/325 1 every 6 hours as needed breakthrough pain. I discussed this extensively with the daughter had informed her that if she feels Ms. Raines is getting confused or disoriented to remove the patch. They were informed that would take a while for the patch to kick in as well as will take little time for the patch to wear off. They verbalized understanding. 7. We will plan to see her back at her regular scheduled follow-up. 8. They are instructed to contact us in interim should questions or problems arise. Signed By: Sesar Breen-, [facility] Gato Downey MD <<Signature on File>>
[2020-06-01 11:09] LABS: Eosinophils % 0.9 %; Hematocrit 35.7 % (37.0-47.0); Lymphocytes # 0.8 10^3/uL (0.8-4.8); Lymphocytes % 18.5 %; Mean Corpuscular HGB Conc 30.8 g/dL (30.0-36.0); Mean Corpuscular Hemoglobin 30.1 pg (28.0-34.0); Mean Corpuscular Volume 97.5 fL (81-99); Mean Platelet Volume 9.5 fL (7.4-10.4); Monocytes # 0.3 10^3/uL (0.2-0.9); Monocytes % 7.2 %; Neutrophils # 3.13 10^3/uL (1.8-7.7); Neutrophils % 73.2 %; Nucleated Red Blood Cells % 0 %; Platelet Count 172 10^3/cmm (130-400); Red Blood Count 3.66 10^6/uL (4.1-5.3); Red Cell Distribution Width 14.4 % (12.1-15.1); White Blood Count 4.3 10^3/uL (4.0-10.0)
[2020-06-01 11:20] LABS: Alanine Aminotransferase 89 U/L (0-33); Albumin Level 3.7 g/dL (3.5-5.2); Alkaline Phosphatase 339 IU/L (35-105); Anion Gap 15.8 (5-19); Aspartate Amino Transferase 24 U/L (0-32); Blood Urea Nitrogen 12 mg/dL (8-23); Calcium 9.6 mg/dL (8.5-10.5); Carbon Dioxide 25 mmol/L (22-29); Chloride 105 mmol/L (98-107); Globulin 2.6 g/dL (1.3-4.6); Glucose 157 mg/dL (65-115); Lactate Dehydrogenase 93 U/L (135-214); Osmolality Calculated 297 mOsm/kg (285-295); Potassium 3.8 mmol/L (3.5-5.1); Sodium 142 mmol/L (136-145); Total Bilirubin 0.9 mg/dL (0.15-1.2); Total Protein 6.3 g/dL (6.6-8.7)
[2020-06-01 11:35] LABS: Vitamin B12 463 pg/mL (232-1245)
[2020-06-01 12:27] LABS: Erythrocyte Sedimentation Rate 50 mm/hr (0-15)
--- NOTE | 2020-06-05 09:47 | ONC FU_ITS ---
Dr. Downey Patient Follow-Up Note Patient: Sharon Sotelo Unit #: [id number]: 1945 Dicatated By: Gato Downey M.D.Date of Visit:Jun 01, 2020 Onc Med Follow-up/Prog Note Chief Complaint: Cervical cancer. 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 On 05/03/2019 she had presented to the emergency room with pain in the left lower quadrant/left flank area and difficulty voiding. Her CT abdomen/pelvis showed a soft tissue mass which was involving the left superior lateral aspect of the urinary bladder and was contiguous with the cervix. It measured at least 4 x 4.9 x 5.8 cm. There was associated ureterovesical junction obstruction and moderate left hydronephrosis. There was associated adenopathy including a left inferior pelvic lymph node measuring 1 x 1.5 cm, a left para-aortic lymph node measuring 1.4 cm, a common iliac lymph node measuring 1.1 cm, and bilateral external iliac lymph nodes measuring up to 2.1 x 4.2 cm on the right and 1 x 1.7 cm on the left. She was referred to Dr. Ybarra in [place]. On 06/04/2019 she underwent exam under anesthesia with cervical biopsy, cystoscopy with biopsy, and rigid proctoscopy to 15 cm. Her tumor appeared to be fixed to the left pelvic sidewall and there was noted to be right-sided parametrial disease. On the cystoscopy the tumor did appear to be involving the bladder. The cervical biopsy and the bladder biopsy both showed poorly differentiated squamous cell carcinoma. She was recommended to undergo chemoradiation. She began radiation concurrently with weekly cisplatin chemotherapy on 07/15/2019. She experienced no acute toxicity with her initial infusion of cisplatin. She was then able to continue her treatment weekly, completing her 6th infusion of cisplatin on 09/02/2019. She completed radiation on 09/03/2019 to a total dose of 5940 cGy. During her treatment she did require some growth factor support with Neupogen. She also required IV hydration on multiple occasions for nausea and poor oral intake. I had seen her for a follow-up visit on 09/18/2019. At that point she was really doing quite poorly, as she had gotten very weak and she was having significant anorexia/nausea, so that her oral intake was very poor. She was significantly pancytopenic with hemoglobin 6.4 g, white blood cell count 2000, and platelet count 66,000. She was transfused and she was given further IV hydration and supportive care measures. During subsequent follow-up there was further decline in the granulocyte count, nadiring at approximately 1000. She then began to show gradual improvement in her clinical status. However, during that time she had been to the radiation oncologist in [place] on 2 occasions, and on both she was declined for her brachytherapy. She eventually opted against treatment. Her other medical illnesses include hypertension, type 2 diabetes, and hypothyroidism. She also has chronic anxiety. She is a non-smoker. INTERIM HISTORY: On 12/21/2019 she was admitted to the hospital with complaints of chest pain in association with eating and rectal pain/bleeding. She had evidence of oral pharyngeal candidiasis and there was associated dehydration and acute renal injury. She also was significantly hyperglycemic. She had symptomatic improvement with IV hydration and IV fluconazole. Also was improvement in her renal function. She remained moderately anemic, but above transfusion threshold. The rectal bleeding was thought to be most likely due to anal fissure, and that improved with conservative management. Following discharge from the hospital, she did start Levemir 20 units daily at bedtime along with regular insulin per sliding scale. She began tapering off dexamethasone. She was then seen Dr. Keita with pain in the left lower quadrant of her abdomen. Her CT abdomen/pelvis on 02/11/2020 showed wall thickening of the sigmoid colon with associated inflammatory change and fluid. There were diverticula noted, and it was felt that the appearance was most consistent with sigmoid colon diverticulitis. There was no evidence of recurrent or metastatic neoplasm. She began on empiric antibiotic coverage with ciprofloxacin and metronidazole. Despite that, her symptoms worsened. On 02/14/2020 she was admitted to the hospital with abdominal abscess in association with bowel perforation. She was given antibiotic coverage with ceftazidime, vancomycin, and metronidazole. She was significantly anemic, requiring PRBC transfusion. She was found to have positive stool FOB, and she was taken off apixaban. She improved clinically. On 02/20/2020 she was discharged home to continue outpatient antibiotic coverage with ertapenem 1 g IV daily. She restarted apixaban with the dosage reduced to 2.5 mg twice daily. I had seen her for a follow-up visit on 03/04/2020. At that point she was still on her antibiotic therapy, and she was showing clinical improvement. Her further clinical course was complicated by development of pain in her right lower back and right leg, which was clinically felt to be consistent with sciatica. She has had multiple ER visits for it this month. Her right hip x-ray on 04/04/2020 showed radiolucencies in the proximal femoral shaft with some endosteal scalloping and possibly involvement of the lateral cortex and medullary canal felt to be most consistent with metastatic disease versus myeloma versus osteomyelitis. Lumbar spine CT on 04/12/2020 showed degenerative changes but no evidence of metastatic disease. CT abdomen/pelvis on 04/21/2020 showed no evidence of residual or recurrent diverticular abscess. There was evidence of diffuse endometrial thickening which was felt to be suspicious for neoplasia, but the findings were similar to the previous study from March 2020. CT of the right femur on 04/22/2020 showed no evidence of metastatic lesions in the right proximal femur and no evidence of pathologic fracture. A small amount of endosteal scalloping of the right proximal femoral shaft was present on the prior PET/CT scans and the appearance was noted to be unchanged. This was felt to most likely be a benign finding. I had seen her for a follow-up visit on 04/24/2020. At that time she was still complaining of severe pain in the right leg. In the absence of any CT evidence of recurrence/progression of the cervical cancer, she continued symptomatic management. On 05/21/2020 she was admitted to the hospital after falling at home. There were no new findings on her repeat CT abdomen/pelvis. MRI of the lumbar spine showed mild disc bulging at multiple levels. A left foraminal disc protrusion at L3-L4 was noted to abut the L3 nerve root and there was also mild enlargement on the L4 nerve root in the subarticular recess. There was mild bilateral foraminal narrowing at L5-S1 with focal disc protrusion in the right lateral recess. There was no evidence of metastatic disease noted on that study. She is seen now for a follow-up visit. Her main complaint is still the pain which starts in the lateral aspect of the right thigh and extends down the leg to the big toe. It is a constant pain but with additional intermittent shooting pain. There is also numbness and tingling in the right leg, and she says it feels like weight. She is generally weak and she has very limited activity. ECOG score is 3. Appetite is still good. She has no fever or night sweats. She has a tiny bit of cough. She has no shortness of breath or chest pain. She says she is nauseated almost every morning. She has no other GI complaints. She has some urinary frequency and urgency. She also has some pain in the low back area. She does not complain of headache. She has some orthostatic lightheadedness. Medications: Citalopram Hydrobromide 1 Tablet (of 40 mg) Oral daily, Dronabinol 1 Capsule (of 5 mg) Oral t.i.d. PRN, Gabapentin 1 Capsule (of 100 mg) Oral b.i.d., HYDROcodone-Acetaminophen 1 (7.5-325 mg) Tablet Oral q 6 hours PRN, Lasix 1 Tablet (of 20 mg) Oral daily, Levemir 20 Units (of 100 Units/mL) Subcutaneous at bedtime, Levothyroxine Sodium 1 (150 mcg) Tablet Oral daily, Lisinopril 1 Tablet (of 20 mg) Oral daily, LORazepam 1 Tablet (of 1 mg) Oral t.i.d. PRN, metroNIDAZOLE 1 Tablet (of 500 mg) Oral t.i.d., Naloxegol Oxalate 1 Tablet (of 25 mg) Oral daily, Naloxone HCl 1 Collins(s) (of 4 mg/0.1mL) Liquid Nasal PRN, Pantoprazole Sodium 1 Tablet (of 40 mg) Tablet, enteric coated Oral b.i.d., Potassium Chloride ER 1 Tablet (of 10 meq) Tablet, controlled release Oral daily, Rosuvastatin Calcium 1 Tablet (of 40 mg) Oral at bedtime, traZODone HCl 1 Tablet (of 50 mg) Oral at bedtime Allergies: Penicillins Review of Systems: Constitutional - She feels very weak and her activity is very limited. Her appetite is okay. She has no fever, night sweats, or hot flashes. ECOG score is 3, ENMT - No sinus congestion/drainage. No mouth sores. No sore throat or difficulty swallowing, Hematologic/Lymphatic - She has some bruising, Respiratory - No shortness of breath. She has just a tiny bit of cough. No pleuritic pain or hemoptysis, Cardiovascular - No angina pain. No palpitations, Gastrointestinal - She is nauseated almost every morning. No heartburn or acid reflux. No diarrhea or constipation. No blood in the stool or black stools, Genitourinary (F) - No dysuria or hematuria. She has some frequency and urgency. She gets up once or twice at night. No incontinence, Musculoskeletal - She continues to have pain starting in the lateral aspect of her right thigh and extending down her leg to her big toe. That pain is constant, there is additional shooting pain that occurs intermittently, Integumentary - No skin rash, Neurologic - No headache. She has orthostatic lightheadedness. She has numbness and tingling in the right leg, she says it feels like weight, Psychiatric - She has anxiety. She sleeps okay with trazodone. Vital Signs: Performed on Jun 01, 2020 09:40 Height - 66.00 in Temperature - 97.3 F (LOW) Pulse - 85 /min Respiration - 14 /min BP - 170/69 mm(hg) (HIGH) O2 Sat - 98 % Pain - 7 Physical Examination: Constitutional - She appears generally weak, Eyes - Sclerae nonicteric. Conjunctivae clear, ENMT - No lesions noted in the oral cavity, Hematologic/Lymphatic - No cervical, clavicular, or axillary adenopathy, Respiratory - Lungs sound clear, Cardiovascular - Heart rhythm is regular. There is a II/ systolic murmur. There is no gallop or rub noted, Abdomen - Soft. Liver and spleen are not enlarged. There is no abdominal mass or ascites noted. There is no inguinal adenopathy, Extremities - No edema. Dorsalis pedis pulses are palpable bilaterally, Neurologic - There is obvious weakness in the right leg. Lab/Imaging: Test performed on Jun 01, 2020 10:36 LDH (Total) 93 U/L Sodium 142 mmol/L Vitamin B12 463 pg/mL Potassium 3.8 mmol/L Chloride 105 mmol/L CO2 25 mmol/L Anion Gap 15.8 BUN 12 mg/dL Creatinine 0.9 mg/dL Cr Clearance (Est) 78.8200 mL/min Glucose 157 mg/dL Osmolality - Calculated 297 mOsm/kg Calcium 9.6 mg/dL Protein, Total 6.3 g/dL Albumin 3.7 g/dL Globulin 2.6 g/dL Bilirubin, Total 0.9 mg/dL ALT (SGPT) 89 U/L AST (SGOT) 24 U/L Alkaline Phosphatase 339 IU/L ESR (Sed Rate) 50 mm/hr Retic Count % 1.5300 % WBC 4.3 10 3/uL RBC 3.66 10 6/uL HGB 11.0 g/dL HCT 35.7 % MCV 97.5 fL MCH 30.1 pg MCHC 30.8 g/dL RDW 14.4 % Platelet Count 172 10 3/cmm MPV 9.5 fL Neutrophils 3.13 10 3/uL Lymphocytes 0.8 10 3/uL Monocytes 0.3 10 3/uL Eosinophils 0.0 10 3/uL Basophils 0.0 10 3/uL Neutrophil % 73.2 % Lymphocyte % 18.5 % Monocyte % 7.2 % Eosinophil % 0.9 % Basophils % 0.0 % NRBC % 0 % Impression: 1. 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 2. On 06/04/2019 she underwent exam under anesthesia with cervical biopsy, cystoscopy with biopsy of the bladder, and rigid proctoscopy to 15 cm. Her other medical illnesses include: 3. Hypertension. 4. Type 2 diabetes. 5. Hypothyroidism. 6. Chronic anxiety. She began radiation concurrently with weekly cisplatin chemotherapy on 07/15/2019. She had some nausea and fatigue with the initial chemotherapy treatment, but she was able to tolerate it with acceptable toxicity, and she continued her treatment weekly, completing her 6th infusion of cisplatin on 09/02/2019. She completed radiation on 09/03/2019 to a total dose of 5940 cGy. During her treatment she required growth factor support with Neupogen, and she also required frequent IV hydration. She had unusually severe toxicity from the treatment, as she then continued to have weakness and nausea/anorexia. She developed worsening pancytopenia, significant enough to require transfusion. Her restaging PET/CT on 10/26/2019 showed resolution of the primary cervical mass and interval resolution of bilateral pelvic and left retroperitoneal lymph nodes. There was improvement but residual activity in a right obturator index node. Overall, the findings were felt to be consistent with a partial response to therapy. During follow-up she did show gradual recovery. However, due to her treatment related toxicity she was not able to undergo brachytherapy. On 12/21/2019 she was admitted to the hospital with oral pharyngeal candidiasis in association with hyperglycemia. She had associated dehydration and acute renal injury. She also is having symptoms of rectal fissure. She had symptomatic improvement on treatment with fluconazole and with IV hydration. Following discharge her blood sugar control improved significantly on a combination of Levemir and regular insulin per sliding scale, and she began to gradually taper off dexamethasone. She had recently presented with new pain in the left lower quadrant of the abdomen. CT findings were consistent with sigmoid colon diverticulitis, for which she was started on antibiotic therapy. However, her condition continued to worsen and on 02/14/2020 she was admitted to the hospital with intra-abdominal abscess associated with perforated diverticulum. She improved on IV antibiotic therapy, but she did require PRBC transfusion. She also was found to have positive IFOB. Her apixaban was initially put on hold, but restarted at 2.5 mg twice daily at discharge on 02/20/2020. She continued outpatient antibiotic therapy with ertapenem 1 g IV daily. During follow-up she improved clinically and a repeat CT scan showed complete resolution of the abscess. However, her further clinical course has been complicated by development of severe pain in her right sciatic distribution. This does appear to be neuropathic, as she also now has numbness/tingling and weakness in the right leg. A specific cause has not been determined either by CT abdomen/pelvis or lumbar spine MRI. I am wondering now she may not have radiation-induced myelopathy or neuropathy. There has still been no evidence of recurrence/progression of the cervical cancer. Plan: In the absence of any evidence of recurrence/progression of the cervical cancer, she will continue symptomatic management. We will have her try increasing the gabapentin to 300 mg 3 times daily and she will continue oxycodone 10/APAP 325 as needed for pain. I will review the MRI with Dr. Doan. She will have further evaluation as indicated. Signed By: Gato Downey M.D. <<Signature on File>>
== END 2020-06-01 23:59 | disposition home or self-care (01) ==
LOC: ONCMED 05:12
PROVIDERS: PCP Family Medicine; Visit Provider Internal Medicine Medical Oncology
DX: C53.9 Malignant neoplasm of cervix uteri, unspecified (principal); C79.11 Secondary malignant neoplasm of bladder; Z23 Encounter for immunization; M54.31 Sciatica, right side; D64.9 Anemia, unspecified; I10 Essential (primary) hypertension; E11.9 Type 2 diabetes mellitus without complications; E03.9 Hypothyroidism, unspecified; F41.9 Anxiety disorder, unspecified; Z92.3 Personal history of irradiation; Z79.01 Long term (current) use of anticoagulants; Z79.891 Long term (current) use of opiate analgesic
CPT/HCPCS: 36415; 80053; 82607; 83010; 83615; 85025; 85045; 85651; 90471; 90686; 99214

== ENCOUNTER 2020-07-06 11:49 | Outpatient (RCR) | payer MEDICARE, MEDICAID, SELFPAY ==
[2020-07-06 12:23] LABS: Basophils % 0.5 %; Eosinophils # 0.1 10^3/uL (0.0-0.8); Eosinophils % 1.9 %; Hematocrit 31.2 % (37.0-47.0); Lymphocytes % 24.3 %; Mean Corpuscular HGB Conc 32.1 g/dL (30.0-36.0); Mean Corpuscular Hemoglobin 30.8 pg (28.0-34.0); Mean Platelet Volume 9.7 fL (7.4-10.4); Monocytes # 0.3 10^3/uL (0.2-0.9); Neutrophils % 65.1 %; Nucleated Red Blood Cells % 0 %; Platelet Count 159 10^3/cmm (130-400); Red Blood Count 3.25 10^6/uL (4.1-5.3); Red Cell Distribution Width 13.4 % (12.1-15.1); White Blood Count 4.2 10^3/uL (4.0-10.0)
[2020-07-06 13:01] LABS: Alanine Aminotransferase 8 U/L (0-33); Albumin Level 3.8 g/dL (3.5-5.2); Alkaline Phosphatase 120 IU/L (35-105); Anion Gap 14.9 (5-19); Aspartate Amino Transferase 13 U/L (0-32); Blood Urea Nitrogen 9 mg/dL (8-23); Calcium 9.3 mg/dL (8.5-10.5); Carbon Dioxide 27 mmol/L (22-29); Chloride 104 mmol/L (98-107); Globulin 2.5 g/dL (1.3-4.6); Glucose 112 mg/dL (65-115); Osmolality Calculated 293 mOsm/kg (285-295); Potassium 3.9 mmol/L (3.5-5.1); Sodium 142 mmol/L (136-145); Total Bilirubin 0.9 mg/dL (0.15-1.2); Total Protein 6.3 g/dL (6.6-8.7)
--- NOTE | 2020-07-10 20:52 | ONC FU_ITS ---
[facility] Patient Note Patient: Sharon Sotelo Unit #: [id number]: 1945 Dictated By: Sesar BreenDate of Visit: Jul 06, 2020 Onc MED Follow-Up/Prog Note Chief Complaint: Cervical cancer. 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 On 05/03/2019 she had presented to the emergency room with pain in the left lower quadrant/left flank area and difficulty voiding. Her CT abdomen/pelvis showed a soft tissue mass which was involving the left superior lateral aspect of the urinary bladder and was contiguous with the cervix. It measured at least 4 x 4.9 x 5.8 cm. There was associated ureterovesical junction obstruction and moderate left hydronephrosis. There was associated adenopathy including a left inferior pelvic lymph node measuring 1 x 1.5 cm, a left para-aortic lymph node measuring 1.4 cm, a common iliac lymph node measuring 1.1 cm, and bilateral external iliac lymph nodes measuring up to 2.1 x 4.2 cm on the right and 1 x 1.7 cm on the left. She was referred to Dr. Ybarra in [place]. On 06/04/2019 she underwent exam under anesthesia with cervical biopsy, cystoscopy with biopsy, and rigid proctoscopy to 15 cm. Her tumor appeared to be fixed to the left pelvic sidewall and there was noted to be right-sided parametrial disease. On the cystoscopy the tumor did appear to be involving the bladder. The cervical biopsy and the bladder biopsy both showed poorly differentiated squamous cell carcinoma. She was recommended to undergo chemoradiation. She began radiation concurrently with weekly cisplatin chemotherapy on 07/15/2019. She experienced no acute toxicity with her initial infusion of cisplatin. She was then able to continue her treatment weekly, completing her 6th infusion of cisplatin on 09/02/2019. She completed radiation on 09/03/2019 to a total dose of 5940 cGy. During her treatment she did require some growth factor support with Neupogen. She also required IV hydration on multiple occasions for nausea and poor oral intake. Dr Downey had seen her for a follow-up visit on 09/18/2019. At that point she was really doing quite poorly, as she had gotten very weak and she was having significant anorexia/nausea, so that her oral intake was very poor. She was significantly pancytopenic with hemoglobin 6.4 g, white blood cell count 2000, and platelet count 66,000. She was transfused and she was given further IV hydration and supportive care measures. During subsequent follow-up there was further decline in the granulocyte count, nadiring at approximately 1000. She then began to show gradual improvement in her clinical status. However, during that time she had been to the radiation oncologist in [place] on 2 occasions, and on both she was declined for her brachytherapy. She eventually opted against treatment. Her other medical illnesses include hypertension, type 2 diabetes, and hypothyroidism. She also has chronic anxiety. She is a non-smoker. INTERIM HISTORY: On 12/21/2019 she was admitted to the hospital with complaints of chest pain in association with eating and rectal pain/bleeding. She had evidence of oral pharyngeal candidiasis and there was associated dehydration and acute renal injury. She also was significantly hyperglycemic. She had symptomatic improvement with IV hydration and IV fluconazole. Also was improvement in her renal function. She remained moderately anemic, but above transfusion threshold. The rectal bleeding was thought to be most likely due to anal fissure, and that improved with conservative management. Following discharge from the hospital, she did start Levemir 20 units daily at bedtime along with regular insulin per sliding scale. She began tapering off dexamethasone. She was then seen Dr. Keita with pain in the left lower quadrant of her abdomen. Her CT abdomen/pelvis on 02/11/2020 showed wall thickening of the sigmoid colon with associated inflammatory change and fluid. There were diverticula noted, and it was felt that the appearance was most consistent with sigmoid colon diverticulitis. There was no evidence of recurrent or metastatic neoplasm. She began on empiric antibiotic coverage with ciprofloxacin and metronidazole. Despite that, her symptoms worsened. On 02/14/2020 she was admitted to the hospital with abdominal abscess in association with bowel perforation. She was given antibiotic coverage with ceftazidime, vancomycin, and metronidazole. She was significantly anemic, requiring PRBC transfusion. She was found to have positive stool FOB, and she was taken off apixaban. She improved clinically. On 02/20/2020 she was discharged home to continue outpatient antibiotic coverage with ertapenem 1 g IV daily. She restarted apixaban with the dosage reduced to 2.5 mg twice daily. I had seen her for a follow-up visit on 03/04/2020. At that point she was still on her antibiotic therapy, and she was showing clinical improvement. Her further clinical course was complicated by development of pain in her right lower back and right leg, which was clinically felt to be consistent with sciatica. She has had multiple ER visits for it this month. Her right hip x-ray on 04/04/2020 showed radiolucencies in the proximal femoral shaft with some endosteal scalloping and possibly involvement of the lateral cortex and medullary canal felt to be most consistent with metastatic disease versus myeloma versus osteomyelitis. Lumbar spine CT on 04/12/2020 showed degenerative changes but no evidence of metastatic disease. CT abdomen/pelvis on 04/21/2020 showed no evidence of residual or recurrent diverticular abscess. There was evidence of diffuse endometrial thickening which was felt to be suspicious for neoplasia, but the findings were similar to the previous study from March 2020. CT of the right femur on 04/22/2020 showed no evidence of metastatic lesions in the right proximal femur and no evidence of pathologic fracture. A small amount of endosteal scalloping of the right proximal femoral shaft was present on the prior PET/CT scans and the appearance was noted to be unchanged. This was felt to most likely be a benign finding. Dr Downey had seen her for a follow-up visit on 04/24/2020. At that time she was still complaining of severe pain in the right leg. In the absence of any CT evidence of recurrence/progression of the cervical cancer, she continued symptomatic management. On 05/21/2020 she was admitted to the hospital after falling at home. There were no new findings on her repeat CT abdomen/pelvis. MRI of the lumbar spine showed mild disc bulging at multiple levels. A left foraminal disc protrusion at L3-L4 was noted to abut the L3 nerve root and there was also mild enlargement on the L4 nerve root in the subarticular recess. There was mild bilateral foraminal narrowing at L5-S1 with focal disc protrusion in the right lateral recess. There was no evidence of metastatic disease noted on that study. Ms Sotelo is here today for a follow-up visit. Her main concern is still the pain which starts in the lateral aspect of the right thigh and extends down the leg to the big toe. It is a constant pain but with additional intermittent shooting pain. She states she has not yet seen pain management do to scheduling and transportation, but thinks she has an appointment within the next couple of weeks . She denies any new concerns today. She denies fever or chills. She denies any known Covid exposure or symptoms. She has no pending test. She states she has not had any mouth sores, sore throat or difficulty swallowing. She has had no recurrence of her confusion and she has had no further falls since her discharge from [facility] in [place] 2020. She denies any pain is continues to have pain as above. She denies nausea or vomiting. She states she is eating fairly good but would like her pain better controlled. Her ECOG is 2. Past Medical History: Anxiety Hyperlipidemia Hypertension Type II diabetes Past Surgical History: Flu vaccine in 2019 Attempted placement of PowerPort venous access device in 2019 Exam under anesthesia with cervical biopsy, rigid proctoscopy to 15 cm, and cystoscopy in 2019 Allergies: Penicillins Medications: Citalopram Hydrobromide 1 Tablet (of 40 mg) Oral daily Dronabinol 1 Capsule (of 5 mg) Oral t.i.d. PRN Gabapentin 1 Capsule (of 300 mg) Oral t.i.d. HYDROcodone-Acetaminophen 1 (7.5-325 mg) Tablet Oral q 6 hours PRN Lasix 1 Tablet (of 20 mg) Oral daily Levemir 20 Units (of 100 Units/mL) Subcutaneous at bedtime Levothyroxine Sodium 1 (150 mcg) Tablet Oral daily Lisinopril 1 Tablet (of 20 mg) Oral daily LORazepam 1 Tablet (of 1 mg) Oral t.i.d. PRN metroNIDAZOLE 1 Tablet (of 500 mg) Oral t.i.d. Naloxegol Oxalate 1 Tablet (of 25 mg) Oral daily Naloxone HCl 1 Milo(s) (of 4 mg/0.1mL) Liquid Nasal PRN Pantoprazole Sodium 1 Tablet (of 40 mg) Tablet, enteric coated Oral b.i.d. Potassium Chloride ER 1 Tablet (of 10 meq) Tablet, controlled release Oral daily Rosuvastatin Calcium 1 Tablet (of 40 mg) Oral at bedtime traZODone HCl 1 Tablet (of 50 mg) Oral at bedtime Family History: Ms. Sotelo's mother is . Ms. Sotelo's father is . Ms. Sotelo has 2 sisters: 2 . Father had brain aneurysm. Mother of heart attack at age 74. He had 2 sisters who from breast cancer and a neice (one of their daughters) also from breast cancer. Social History: Ms. Sotelo is single and she is a disabled. Ms. Sotelo has never smoked. She has no history of drinking. She is a non-smoker. She does not drink alcohol. Review Of Symptoms: Constitutional Denies fevers, chills, night sweats, excessive fatigue or weight loss. Tired alot but recovers with rest- for the most part . Allergic/Immunologic No reactions. Eyes Denies significant visual changes. No diplopia. No amaurosis. ENMT Denies changes in hearing, sore throat, mouth sores, difficulty or changes in swallowing ability, and/or sinus drainage. Endocrine No diabetes, thyroid disease or hormone replacement. Denies hot flashes or night sweats. Hematologic/Lymphatic Denies easy bruising or bleeding. The patient denies any tender or palpable lymph nodes. Respiratory Denies dyspnea on exertion, chest pain, cough or hemoptysis. Denies orthopnea. Cardiovascular Denies anginal chest pain, palpitations or orthopnea. Gastrointestinal Denies nausea, vomiting, GI bleeding, or constipation. She states her bowels are normal for her. Genitourinary (F) No hematuria, hesitancy, incontinence, vaginal bleeding, discharge or other problems with urination. Musculoskeletal Denies joint pain, swelling or redness. No decreased range of motion. Integumentary Denies chronic rashes, inflammation, ulcerations or skin changes. Neurologic Denies headache, blurred vision, and no areas of focal weakness or numbness. No sensory problems. Psychiatric Denies insomnia, depression, cornelio or mood swings. Vital Signs: Performed on Jul 06, 2020 14:07 Height - 66.00 in Temperature - 96.9 F (LOW) Pulse - 85 /min Respiration - 18 /min BP - 137/59 mm(hg) O2 Sat - 98 % Pain - 6,2 - Ambulatory/capable of all self-care, unable to perform any work activities. Up and about more than 50% of waking hours. (ECOG) Physical Examination: Constitutional Alert, oriented, no acute distress. Skin pink/pale, warm and dry. Head Normocephalic; atraumatic. Eyes Conjunctivae and sclerae are clear and without icterus. Pupils are reactive and equal. ENMT No oral exudates, ulcers, masses, thrush or mucositis. Oropharynx clear. Tongue normal. Neck Supple without masses or thyromegaly. No jugular venous distension. Hematologic/Lymphatic No petechiae or purpura. No tender or palpable lymph nodes in the cervical or supraclavicular areas. Respiratory Lungs are clear to auscultation without rhonchi or wheezing. Cardiovascular Regular rate and rhythm of heart without clicks, gallops or rubs. She does have a soft systolic murmur. Abdomen Non-tender, non-distended, no masses or ascites. Good bowel sounds noted in all quads. No guarding or rebound tenderness. No pulsatile masses. Back/Spine Non-tender to palpation. Extremities No visible deformities, no cyanosis, clubbing or edema. Musculoskeletal No tenderness or swelling, normal range of motion without obvious weakness. Integumentary No rashes or lesions. Neurologic No sensory or motor deficits, normal cerebellar function, in wheelchair for mobility assistance today. Psychiatric Alert and oriented times three. Coherent speech. Verbalizes understanding of our discussions today. Laboratory:Test performed on Jul 06, 2020 12:10 Sodium 142 mmol/L Potassium 3.9 mmol/L Chloride 104 mmol/L CO2 27 mmol/L Anion Gap 14.9 BUN 9 mg/dL Creatinine 0.9 mg/dL Cr Clearance (Est) 78.8200 mL/min Glucose 112 mg/dL Osmolality - Calculated 293 mOsm/kg Calcium 9.3 mg/dL Protein, Total 6.3 g/dL Albumin 3.8 g/dL Globulin 2.5 g/dL Bilirubin, Total 0.9 mg/dL ALT (SGPT) 8 U/L AST (SGOT) 13 U/L Alkaline Phosphatase 120 IU/L WBC 4.2 10 3/uL RBC 3.25 10 6/uL HGB 10.0 g/dL HCT 31.2 % MCV 96.0 fL MCH 30.8 pg MCHC 32.1 g/dL RDW 13.4 % Platelet Count 159 10 3/cmm MPV 9.7 fL Neutrophils 2.70 10 3/uL Lymphocytes 1.0 10 3/uL Monocytes 0.3 10 3/uL Eosinophils 0.1 10 3/uL Basophils 0.0 10 3/uL Neutrophil % 65.1 % Lymphocyte % 24.3 % Monocyte % 8.0 % Eosinophil % 1.9 % Basophils % 0.5 % NRBC % 0 % Test performed on Jun 01, 2020 10:36 LDH (Total) 93 U/L Vitamin B12 463 pg/mL ESR (Sed Rate) 50 mm/hr Retic Count % 1.5300 % Test performed on Mar 02, 2020 13:45 Manual Lymphocytes 17.1 % Manual Monocytes 11.5 % Manual Eosinophils 0.9 % Manual Basophils 0.3 % Test performed on Feb 11, 2020 10:12 Ferritin 828 ng/mL Iron 55 mcg/dL Iron Binding Capacity (TIBC) 282 mcg/dl % Iron Saturation 19.5 % Est Avg Glucose (eAG) 126 mg/dL UIBC 227 mcg/dL Hemoglobin A1C % 6.0 % Impression: 1. 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 2. On 06/04/2019 she underwent exam under anesthesia with cervical biopsy, cystoscopy with biopsy of the bladder, and rigid proctoscopy to 15 cm. Her other medical illnesses include: 3. Hypertension. 4. Type 2 diabetes. 5. Hypothyroidism. 6. Chronic anxiety. She began radiation concurrently with weekly cisplatin chemotherapy on 07/15/2019. She had some nausea and fatigue with the initial chemotherapy treatment, but she was able to tolerate it with acceptable toxicity, and she continued her treatment weekly, completing her 6th infusion of cisplatin on 09/02/2019. She completed radiation on 09/03/2019 to a total dose of 5940 cGy. During her treatment she required growth factor support with Neupogen, and she also required frequent IV hydration. She had unusually severe toxicity from the treatment, as she then continued to have weakness and nausea/anorexia. She developed worsening pancytopenia, significant enough to require transfusion. Her restaging PET/CT on 10/26/2019 showed resolution of the primary cervical mass and interval resolution of bilateral pelvic and left retroperitoneal lymph nodes. There was improvement but residual activity in a right obturator index node. Overall, the findings were felt to be consistent with a partial response to therapy. During follow-up she did show gradual recovery. However, due to her treatment related toxicity she was not able to undergo brachytherapy. On 12/21/2019 she was admitted to the hospital with oral pharyngeal candidiasis in association with hyperglycemia. She had associated dehydration and acute renal injury. She also is having symptoms of rectal fissure. She had symptomatic improvement on treatment with fluconazole and with IV hydration. Following discharge her blood sugar control improved significantly on a combination of Levemir and regular insulin per sliding scale, and she began to gradually taper off dexamethasone. She had recently presented with new pain in the left lower quadrant of the abdomen. CT findings were consistent with sigmoid colon diverticulitis, for which she was started on antibiotic therapy. However, her condition continued to worsen and on 02/14/2020 she was admitted to the hospital with intra-abdominal abscess associated with perforated diverticulum. She improved on IV antibiotic therapy, but she did require PRBC transfusion. She also was found to have positive IFOB. Her apixaban was initially put on hold, but restarted at 2.5 mg twice daily at discharge on 02/20/2020. She continued outpatient antibiotic therapy with ertapenem 1 g IV daily. During follow-up she improved clinically and a repeat CT scan showed complete resolution of the abscess. However, her further clinical course has been complicated by development of severe pain in her right sciatic distribution. This does appear to be neuropathic, as she also now has numbness/tingling and weakness in the right leg. A specific cause has not been determined either by CT abdomen/pelvis or lumbar spine MRI. Dr Downey has been concerned that she may not have radiation-induced myelopathy or neuropathy. There has still been no evidence of recurrence/progression of the cervical cancer. Plan: PROBLEMS ADDRESSED TODAY: 1. STAGE EVARISTO CERVICAL CANCER A. She will continue observation. B. Labs from today reviewed in detail discussed with Mrs. Raines and a copy was given to her. WBC 4.2, hemoglobin 10 platelets 159,000 ANC is 2700. Potassium 3.9 creatinine 0.9 LFTs are normal alk phos is improved from 339 on June 01 2020-and is 120 today. 2. CHRONIC BACK PAIN DUE TO: A. L2-L3 mild annular disc bulging with facet and ligamentun flavum arthritis. Mild bilateral foraminal narrowing. B. L3-L4 mild asymmetric disc bulging with left foraminal disc per trusion abutting the L3 nerve root there is also enlargement upon the L4 nerve root. C. She has been encouraged to make sure to her appointment with pain management D. Continue the gabapentin to 300 mg 3 times daily and she will continue oxycodone 10/APAP 325 as needed for pain. 3. FOLLOW-UP PLAN: A. We will plan to follow her back up in 4 to 6 weeks when she can see Dr. Downey. I have asked for repeat CBC CMP at that time. B. Mrs. Sotelo was instructed to contact us in interim should questions or problems arise. Signed By: Sesar Breen-, [facility] Gato Downey MD <<Signature on File>>
== END 2020-08-02 23:59 | disposition home or self-care (01) ==
LOC: ONCMED 11:49
PROVIDERS: PCP Family Medicine; Visit Provider Nurse Practitioner
DX: C53.8 Malignant neoplasm of overlapping sites of cervix uteri (principal); C79.11 Secondary malignant neoplasm of bladder; C77.8 Secondary and unspecified malignant neoplasm of lymph nodes of multiple regions; I10 Essential (primary) hypertension; E11.9 Type 2 diabetes mellitus without complications; E03.9 Hypothyroidism, unspecified; F41.9 Anxiety disorder, unspecified; Z79.899 Other long term (current) drug therapy
CPT/HCPCS: 36415; 80053; 85025; 99214

== ENCOUNTER → 2020-07-20 12:57 | Outpatient (BNVA) | payer MEDICARE, MEDICAID, SELFPAY | PROVIDERS: PCP Family Medicine; Visit Provider Anesthesiology Pain Medicine | DX: Z01.812 Encounter for preprocedural laboratory examination (principal); G89.29 Other chronic pain; M54.16 Radiculopathy, lumbar region; M54.9 Dorsalgia, unspecified; E11.9 Type 2 diabetes mellitus without complications | CPT/HCPCS: 62323; J1030; J3490 ==

== ENCOUNTER 2020-08-04 06:16 | Outpatient (RCR) | payer MEDICARE, MEDICAID, SELFPAY ==
[2020-08-04 14:18] LABS: Basophils % 0.6 %; Eosinophils # 0.1 10^3/uL (0.0-0.8); Eosinophils % 2.2 %; Hemoglobin 10.4 g/dL (11.5-15.3); Lymphocytes # 0.9 10^3/uL (0.8-4.8); Lymphocytes % 26.3 %; Mean Corpuscular HGB Conc 31.5 g/dL (30.0-36.0); Mean Corpuscular Hemoglobin 31.1 pg (28.0-34.0); Mean Corpuscular Volume 98.8 fL (81-99); Mean Platelet Volume 9.3 fL (7.4-10.4); Monocytes # 0.3 10^3/uL (0.2-0.9); Neutrophils % 61.6 %; Nucleated Red Blood Cells % 0 %; Platelet Count 139 10^3/cmm (130-400); Red Blood Count 3.34 10^6/uL (4.1-5.3); White Blood Count 3.6 10^3/uL (4.0-10.0)
[2020-08-04 14:26] LABS: Alanine Aminotransferase 19 U/L (0-33); Alkaline Phosphatase 137 IU/L (35-105); Anion Gap 13.9 (5-19); Aspartate Amino Transferase 18 U/L (0-32); Blood Urea Nitrogen 12 mg/dL (8-23); Calcium 9.9 mg/dL (8.5-10.5); Carbon Dioxide 28 mmol/L (22-29); Chloride 101 mmol/L (98-107); Globulin 2.7 g/dL (1.3-4.6); Glucose 146 mg/dL (65-115); Osmolality Calculated 290 mOsm/kg (285-295); Potassium 3.9 mmol/L (3.5-5.1); Sodium 139 mmol/L (136-145); Total Protein 6.7 g/dL (6.6-8.7)
--- NOTE | 2020-08-05 07:46 | ONC FU_ITS ---
Dr. Downey Patient Follow-Up Note Patient: Sharon Sotelo Unit #: [id number]: 1945 Dicatated By: Gato Downey M.D.Date of Visit:Aug 04, 2020 Onc Med Follow-up/Prog Note Chief Complaint: Cervical cancer. 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 On 05/03/2019 she had presented to the emergency room with pain in the left lower quadrant/left flank area and difficulty voiding. Her CT abdomen/pelvis showed a soft tissue mass which was involving the left superior lateral aspect of the urinary bladder and was contiguous with the cervix. It measured at least 4 x 4.9 x 5.8 cm. There was associated ureterovesical junction obstruction and moderate left hydronephrosis. There was associated adenopathy including a left inferior pelvic lymph node measuring 1 x 1.5 cm, a left para-aortic lymph node measuring 1.4 cm, a common iliac lymph node measuring 1.1 cm, and bilateral external iliac lymph nodes measuring up to 2.1 x 4.2 cm on the right and 1 x 1.7 cm on the left. She was referred to Dr. Ybarra in [place]. On 06/04/2019 she underwent exam under anesthesia with cervical biopsy, cystoscopy with biopsy, and rigid proctoscopy to 15 cm. Her tumor appeared to be fixed to the left pelvic sidewall and there was noted to be right-sided parametrial disease. On the cystoscopy the tumor did appear to be involving the bladder. The cervical biopsy and the bladder biopsy both showed poorly differentiated squamous cell carcinoma. She was recommended to undergo chemoradiation. She began radiation concurrently with weekly cisplatin chemotherapy on 07/15/2019. She experienced no acute toxicity with her initial infusion of cisplatin. She was then able to continue her treatment weekly, completing her 6th infusion of cisplatin on 09/02/2019. She completed radiation on 09/03/2019 to a total dose of 5940 cGy. During her treatment she did require some growth factor support with Neupogen. She also required IV hydration on multiple occasions for nausea and poor oral intake. I had seen her for a follow-up visit on 09/18/2019. At that point she was really doing quite poorly, as she had gotten very weak and she was having significant anorexia/nausea, so that her oral intake was very poor. She was significantly pancytopenic with hemoglobin 6.4 g, white blood cell count 2000, and platelet count 66,000. She was transfused and she was given further IV hydration and supportive care measures. During subsequent follow-up there was further decline in the granulocyte count, nadiring at approximately 1000. She then began to show gradual improvement in her clinical status. However, during that time she had been to the radiation oncologist in [place] on 2 occasions, and on both she was declined for her brachytherapy. She eventually opted against treatment. Her other medical illnesses include hypertension, type 2 diabetes, and hypothyroidism. She also has chronic anxiety. She is a non-smoker. INTERIM HISTORY: On 12/21/2019 she was admitted to the hospital with complaints of chest pain in association with eating and rectal pain/bleeding. She had evidence of oral pharyngeal candidiasis and there was associated dehydration and acute renal injury. She also was significantly hyperglycemic. She had symptomatic improvement with IV hydration and IV fluconazole. Also was improvement in her renal function. She remained moderately anemic, but above transfusion threshold. The rectal bleeding was thought to be most likely due to anal fissure, and that improved with conservative management. Following discharge from the hospital, she did start Levemir 20 units daily at bedtime along with regular insulin per sliding scale. She began tapering off dexamethasone. She was then seen Dr. Keita with pain in the left lower quadrant of her abdomen. Her CT abdomen/pelvis on 02/11/2020 showed wall thickening of the sigmoid colon with associated inflammatory change and fluid. There were diverticula noted, and it was felt that the appearance was most consistent with sigmoid colon diverticulitis. There was no evidence of recurrent or metastatic neoplasm. She began on empiric antibiotic coverage with ciprofloxacin and metronidazole. Despite that, her symptoms worsened. On 02/14/2020 she was admitted to the hospital with abdominal abscess in association with bowel perforation. She was given antibiotic coverage with ceftazidime, vancomycin, and metronidazole. She was significantly anemic, requiring PRBC transfusion. She was found to have positive stool FOB, and she was taken off apixaban. She improved clinically. On 02/20/2020 she was discharged home to continue outpatient antibiotic coverage with ertapenem 1 g IV daily. She restarted apixaban with the dosage reduced to 2.5 mg twice daily. I had seen her for a follow-up visit on 03/04/2020. At that point she was still on her antibiotic therapy, and she was showing clinical improvement. Her further clinical course was complicated by development of pain in her right lower back and right leg, which was clinically felt to be consistent with sciatica. She has had multiple ER visits for it this month. Her right hip x-ray on 04/04/2020 showed radiolucencies in the proximal femoral shaft with some endosteal scalloping and possibly involvement of the lateral cortex and medullary canal felt to be most consistent with metastatic disease versus myeloma versus osteomyelitis. Lumbar spine CT on 04/12/2020 showed degenerative changes but no evidence of metastatic disease. CT abdomen/pelvis on 04/21/2020 showed no evidence of residual or recurrent diverticular abscess. There was evidence of diffuse endometrial thickening which was felt to be suspicious for neoplasia, but the findings were similar to the previous study from March 2020. CT of the right femur on 04/22/2020 showed no evidence of metastatic lesions in the right proximal femur and no evidence of pathologic fracture. A small amount of endosteal scalloping of the right proximal femoral shaft was present on the prior PET/CT scans and the appearance was noted to be unchanged. This was felt to most likely be a benign finding. I had seen her for a follow-up visit on 04/24/2020. At that time she was still complaining of severe pain in the right leg. In the absence of any CT evidence of recurrence/progression of the cervical cancer, she continued symptomatic management. On 05/21/2020 she was admitted to the hospital after falling at home. There were no new findings on her repeat CT abdomen/pelvis. MRI of the lumbar spine showed mild disc bulging at multiple levels. A left foraminal disc protrusion at L3-L4 was noted to abut the L3 nerve root and there was also mild enlargement on the L4 nerve root in the subarticular recess. There was mild bilateral foraminal narrowing at L5-S1 with focal disc protrusion in the right lateral recess. There was no evidence of metastatic disease noted on that study. With those findings she was referred to pain management and she underwent an L4/5 interlaminar epidural steroid injection on 07/20/2020. She is seen for a follow-up visit. She still has not been feeling good. She had minimal if any pain relief with the epidural steroid injection. Her right leg hurts constantly, and she also complains now that it is swelling. The pain medication helps a little. She does not want to make it stronger. Recently she has been able to ambulate short distances with a walker. Her activity, though, remains very limited. ECOG score is 3. She has good appetite. She has no fever or night sweats. She has no shortness of breath, cough, or chest pain. She says she still has diarrhea about every 3 days. It is managed adequately with Lomotil. She has no other GI complaints. She sometimes has a little bladder leakage. Her pain is mainly in the right leg. She otherwise just has a little pain in the low back area. She has numbness/tingling in both feet, right worse than left. Medications: Citalopram Hydrobromide 1 Tablet (of 40 mg) Oral daily, Dronabinol 1 Capsule (of 5 mg) Oral t.i.d. PRN, Gabapentin 1 Capsule (of 300 mg) Oral t.i.d., HYDROcodone-Acetaminophen 1 (10-325 mg) Tablet Oral q 6 hours PRN, Lasix 1 Tablet (of 20 mg) Oral daily, Levemir 20 Units (of 100 Units/mL) Subcutaneous at bedtime, Levothyroxine Sodium 1 (150 mcg) Tablet Oral daily, Lisinopril 1 Tablet (of 20 mg) Oral daily, LORazepam 1 Tablet (of 1 mg) Oral t.i.d. PRN, metroNIDAZOLE 1 Tablet (of 500 mg) Oral t.i.d., Naloxegol Oxalate 1 Tablet (of 25 mg) Oral daily, Naloxone HCl 1 [place](s) (of 4 mg/0.1mL) Liquid Nasal PRN, Pantoprazole Sodium 1 Tablet (of 40 mg) Tablet, enteric coated Oral b.i.d., Potassium Chloride ER 1 Tablet (of 10 meq) Tablet, controlled release Oral daily, Rosuvastatin Calcium 1 Tablet (of 40 mg) Oral at bedtime, traZODone HCl 1 Tablet (of 50 mg) Oral at bedtime Allergies: Penicillins Vital Signs: Performed on Aug 04, 2020 15:35 Height - 66.00 in Weight - 180 lbs (LOW) BSA - 1.91 sq.m BMI - 29.05 Temperature - 97.1 F (LOW) Pulse - 70 /min Respiration - 16 /min BP - 157/76 mm(hg) (HIGH) O2 Sat - 99 % Pain - 6 Physical Examination: Constitutional - She appears generally weak, Eyes - Sclerae nonicteric. Conjunctivae clear, ENMT - No lesions noted in the oral cavity, Hematologic/Lymphatic - No cervical, clavicular, or axillary adenopathy, Respiratory - Lungs sound clear, Cardiovascular - Heart rhythm is regular. There is a II/ systolic murmur. There is no gallop or rub noted, Abdomen - Soft. Liver and spleen are not enlarged. There is no abdominal mass or ascites noted. There is no inguinal adenopathy, Extremities - There is mild swelling of the right leg and it feels a little more firm compared to the left. The calf circumference, though, is symmetric at 36 cm. Dorsalis pedis pulses are palpable bilaterally, Neurologic - There is some right leg weakness. I am not able to elicit reflexes on the right leg. There is 1+ patellar reflex on the left. Lab/Imaging: CBC shows hemoglobin 10.4 g, white blood cell count 3600, and platelet count 139,000. Comprehensive metabolic profile is unremarkable except for slightly elevated alkaline phosphatase of 137/105 IU/L. Problem List: 1. Poorly differentiated squamous cell carcinoma of the cervix, stage EVARISTO (T4, N1, M0), with biopsy proven involvement in the bladder and with CT evidence of pelvic and left periaortic lymphadenopathy. On 06/04/2019 she underwent exam under anesthesia with cervical biopsy, cystoscopy with biopsy of the bladder, and rigid proctoscopy to 15 cm. 2. Hypertension. 3. Type 2 diabetes. 4. Hypothyroidism. 5. Chronic anxiety. Problems Addressed with this Encounter and Plan: 1. Poorly differentiated squamous cell carcinoma of the cervix, stage EVARISTO (T4, N1, M0), with biopsy proven involvement in the bladder and with CT evidence of pelvic and left periaortic lymphadenopathy. She began radiation concurrently with weekly cisplatin chemotherapy on 07/15/2019. She had some nausea and fatigue with the initial chemotherapy treatment, but she was able to tolerate it with acceptable toxicity, and she continued her treatment weekly, completing her 6th infusion of cisplatin on 09/02/2019. She completed radiation on 09/03/2019 to a total dose of 5940 cGy. Her further clinical course was complicated by hospitalization for hyperglycemia, dehydration, and acute renal injury and by development of rectal fissure. She then developed persistent, neuropathic pain in the right leg, and during follow-up she has had very poor performance status. However, she did have a very good response to the chemoradiation by CT scan, and thus far her repeat CT scans have shown no evidence of recurrence/progression of the cervical cancer. As such, she remains on observation/expectant management. She will be due for restaging CT scans of the chest, abdomen, and pelvis within the next 2 to 3 weeks. 2. She has persistent, neuropathic pain in the right leg. There were degenerative changes noted on lumbar spine MRI, but she had no significant improvement with an L4/5 epidural steroid injection on 07/20/2020. As yet a specific cause has not been determined, but I am increasingly suspicious that she may have neuropathy from the chemotherapy and/or radiation, and I will now arrange for referral to Dr. Doan. Signed By: Gato Downey M.D. <<Signature on File>>
== END 2020-08-30 23:59 | disposition home or self-care (01) ==
LOC: ONCMED 06:16
PROVIDERS: PCP Family Medicine; Visit Provider Internal Medicine Medical Oncology
DX: Z08 Encounter for follow-up examination after completed treatment for malignant neoplasm (principal); Z85.41 Personal history of malignant neoplasm of cervix uteri; I10 Essential (primary) hypertension; E11.9 Type 2 diabetes mellitus without complications; E03.9 Hypothyroidism, unspecified; F41.9 Anxiety disorder, unspecified; G62.9 Polyneuropathy, unspecified; Z79.899 Other long term (current) drug therapy
CPT/HCPCS: 80053; 85025; 99214

== ENCOUNTER → 2020-08-24 13:42 | Outpatient (BNVA) | payer MEDICARE, MEDICAID, SELFPAY | PROVIDERS: PCP Family Medicine; Visit Provider Nurse Practitioner | DX: R20.0 Anesthesia of skin (principal); R20.2 Paresthesia of skin; Z13.29 Encounter for screening for other suspected endocrine disorder; M54.16 Radiculopathy, lumbar region | CPT/HCPCS: 99204; 99205 ==

== ENCOUNTER → 2020-08-27 13:52 | Outpatient (BNVA) | payer MEDICARE, MEDICAID, SELFPAY | PROVIDERS: PCP Family Medicine; Visit Provider Anesthesiology Pain Medicine | DX: G89.29 Other chronic pain (principal); M54.41 Lumbago with sciatica, right side; M54.9 Dorsalgia, unspecified; Z79.891 Long term (current) use of opiate analgesic | CPT/HCPCS: 99214 ==

== ENCOUNTER → 2020-09-07 13:25 | Outpatient (BNVA) | payer MEDICARE, MEDICAID, SELFPAY | PROVIDERS: PCP Family Medicine; Visit Provider Anesthesiology Pain Medicine | DX: M54.16 Radiculopathy, lumbar region (principal); M54.9 Dorsalgia, unspecified; Z79.891 Long term (current) use of opiate analgesic | CPT/HCPCS: 64483; 64484; J1100; J3490 ==

== ENCOUNTER 2020-09-09 05:43 | Outpatient (RCR) | payer MEDICARE, MEDICAID, SELFPAY ==
[2020-09-09 09:20] LABS: Basophils % 0.3 %; Eosinophils % 0.4 %; Hematocrit 39.3 % (37.0-47.0); Hemoglobin 12.9 g/dL (11.5-15.3); Lymphocytes # 1.5 10^3/uL (0.8-4.8); Lymphocytes % 21.6 %; Mean Corpuscular HGB Conc 32.8 g/dL (30.0-36.0); Mean Corpuscular Hemoglobin 30.6 pg (28.0-34.0); Mean Corpuscular Volume 93.1 fL (81-99); Mean Platelet Volume 9.2 fL (7.4-10.4); Monocytes # 0.7 10^3/uL (0.2-0.9); Monocytes % 9.9 %; Neutrophils # 4.76 10^3/uL (1.8-7.7); Neutrophils % 67.4 %; Nucleated Red Blood Cells % 0 %; Platelet Count 230 10^3/cmm (130-400); Red Blood Count 4.22 10^6/uL (4.1-5.3); Red Cell Distribution Width 12.6 % (12.1-15.1); White Blood Count 7.1 10^3/uL (4.0-10.0)
[2020-09-09 09:43] LABS: Alanine Aminotransferase 16 U/L (0-33); Albumin Level 4.3 g/dL (3.5-5.2); Alkaline Phosphatase 108 IU/L (35-105); Anion Gap 15.7 (5-19); Aspartate Amino Transferase 13 U/L (0-32); Blood Urea Nitrogen 20 mg/dL (8-23); Calcium 10.1 mg/dL (8.5-10.5); Carbon Dioxide 25 mmol/L (22-29); Chloride 102 mmol/L (98-107); Globulin 2.9 g/dL (1.3-4.6); Glucose 143 mg/dL (65-115); Osmolality Calculated 293 mOsm/kg (285-295); Potassium 3.7 mmol/L (3.5-5.1); Sodium 139 mmol/L (136-145); Total Bilirubin 1.1 mg/dL (0.15-1.2); Total Protein 7.2 g/dL (6.6-8.7)
[2020-09-09 10:06] LABS: Erythrocyte Sedimentation Rate 21 mm/hr (0-15)
--- NOTE | 2020-09-20 19:57 | ONC FU_ITS ---
[facility] Patient Note Patient: Sharon Sotelo Unit #: [id number]: 1945 Dictated By: Sesar BreenDate of Visit: Sep 09, 2020 Onc MED Follow-Up/Prog Note Chief Complaint: Cervical cancer. 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 On 05/03/2019 she had presented to the emergency room with pain in the left lower quadrant/left flank area and difficulty voiding. Her CT abdomen/pelvis showed a soft tissue mass which was involving the left superior lateral aspect of the urinary bladder and was contiguous with the cervix. It measured at least 4 x 4.9 x 5.8 cm. There was associated ureterovesical junction obstruction and moderate left hydronephrosis. There was associated adenopathy including a left inferior pelvic lymph node measuring 1 x 1.5 cm, a left para-aortic lymph node measuring 1.4 cm, a common iliac lymph node measuring 1.1 cm, and bilateral external iliac lymph nodes measuring up to 2.1 x 4.2 cm on the right and 1 x 1.7 cm on the left. She was referred to Dr. Ybarra in [place]. On 06/04/2019 she underwent exam under anesthesia with cervical biopsy, cystoscopy with biopsy, and rigid proctoscopy to 15 cm. Her tumor appeared to be fixed to the left pelvic sidewall and there was noted to be right-sided parametrial disease. On the cystoscopy the tumor did appear to be involving the bladder. The cervical biopsy and the bladder biopsy both showed poorly differentiated squamous cell carcinoma. She was recommended to undergo chemoradiation. She began radiation concurrently with weekly cisplatin chemotherapy on 07/15/2019. She experienced no acute toxicity with her initial infusion of cisplatin. She was then able to continue her treatment weekly, completing her 6th infusion of cisplatin on 09/02/2019. She completed radiation on 09/03/2019 to a total dose of 5940 cGy. During her treatment she did require some growth factor support with Neupogen. She also required IV hydration on multiple occasions for nausea and poor oral intake. Dr Downey had seen her for a follow-up visit on 09/18/2019. At that point she was really doing quite poorly, as she had gotten very weak and she was having significant anorexia/nausea, so that her oral intake was very poor. She was significantly pancytopenic with hemoglobin 6.4 g, white blood cell count 2000, and platelet count 66,000. She was transfused and she was given further IV hydration and supportive care measures. During subsequent follow-up there was further decline in the granulocyte count, nadiring at approximately 1000. She then began to show gradual improvement in her clinical status. However, during that time she had been to the radiation oncologist in [place] on 2 occasions, and on both she was declined for her brachytherapy. She eventually opted against treatment. Her other medical illnesses include hypertension, type 2 diabetes, and hypothyroidism. She also has chronic anxiety. She is a non-smoker. INTERIM HISTORY: On 12/21/2019 she was admitted to the hospital with complaints of chest pain in association with eating and rectal pain/bleeding. She had evidence of oral pharyngeal candidiasis and there was associated dehydration and acute renal injury. She also was significantly hyperglycemic. She had symptomatic improvement with IV hydration and IV fluconazole. Also was improvement in her renal function. She remained moderately anemic, but above transfusion threshold. The rectal bleeding was thought to be most likely due to anal fissure, and that improved with conservative management. Following discharge from the hospital, she did start Levemir 20 units daily at bedtime along with regular insulin per sliding scale. She began tapering off dexamethasone. She was then seen Dr. Keita with pain in the left lower quadrant of her abdomen. Her CT abdomen/pelvis on 02/11/2020 showed wall thickening of the sigmoid colon with associated inflammatory change and fluid. There were diverticula noted, and it was felt that the appearance was most consistent with sigmoid colon diverticulitis. There was no evidence of recurrent or metastatic neoplasm. She began on empiric antibiotic coverage with ciprofloxacin and metronidazole. Despite that, her symptoms worsened. On 02/14/2020 she was admitted to the hospital with abdominal abscess in association with bowel perforation. She was given antibiotic coverage with ceftazidime, vancomycin, and metronidazole. She was significantly anemic, requiring PRBC transfusion. She was found to have positive stool FOB, and she was taken off apixaban. She improved clinically. On 02/20/2020 she was discharged home to continue outpatient antibiotic coverage with ertapenem 1 g IV daily. She restarted apixaban with the dosage reduced to 2.5 mg twice daily. I had seen her for a follow-up visit on 03/04/2020. At that point she was still on her antibiotic therapy, and she was showing clinical improvement. Her further clinical course was complicated by development of pain in her right lower back and right leg, which was clinically felt to be consistent with sciatica. She has had multiple ER visits for it this month. Her right hip x-ray on 04/04/2020 showed radiolucencies in the proximal femoral shaft with some endosteal scalloping and possibly involvement of the lateral cortex and medullary canal felt to be most consistent with metastatic disease versus myeloma versus osteomyelitis. Lumbar spine CT on 04/12/2020 showed degenerative changes but no evidence of metastatic disease. CT abdomen/pelvis on 04/21/2020 showed no evidence of residual or recurrent diverticular abscess. There was evidence of diffuse endometrial thickening which was felt to be suspicious for neoplasia, but the findings were similar to the previous study from March 2020. CT of the right femur on 04/22/2020 showed no evidence of metastatic lesions in the right proximal femur and no evidence of pathologic fracture. A small amount of endosteal scalloping of the right proximal femoral shaft was present on the prior PET/CT scans and the appearance was noted to be unchanged. This was felt to most likely be a benign finding. Dr Downey had seen her for a follow-up visit on 04/24/2020. At that time she was still complaining of severe pain in the right leg. In the absence of any CT evidence of recurrence/progression of the cervical cancer, she continued symptomatic management. On 05/21/2020 she was admitted to the hospital after falling at home. There were no new findings on her repeat CT abdomen/pelvis. MRI of the lumbar spine showed mild disc bulging at multiple levels. A left foraminal disc protrusion at L3-L4 was noted to abut the L3 nerve root and there was also mild enlargement on the L4 nerve root in the subarticular recess. There was mild bilateral foraminal narrowing at L5-S1 with focal disc protrusion in the right lateral recess. There was no evidence of metastatic disease noted on that study. With those findings she was referred to pain management and she underwent an L4/5 interlaminar epidural steroid injection on 07/20/2020. Ms Sotelo is here today for followup. She expresses that she has had no pain relief in several days. She did have left L3 and L4 transforaminal RADHA per Dr. David on September 07, 2020. She had minimal if any pain relief with the epidural steroid injection. Her right leg hurts constantly, and she also complains now that it is hurting worse. The pain medication helps a little but is working less and less. She does want to make the pain medication stronger Her pain is mainly in the right leg. She otherwise just has a little pain in the low back area. She has numbness/tingling in both feet, right worse than left. She states she does not think injections are doing anything for her. Her family reports that her pain has been intense enough that she has been crying . She denies any nausea or vomiting. Her appetite is poor but she states that is due to the pain and it does improve with Marinol. She denies any new shortness of breath orthopnea. She states of her pain was controlled she thinks she would feel better overall. She has had some chronic constipation and intermittent diarrhea as she uses stool softeners and laxatives for the constipation but she seems to manage this adequately according to her family. She denies any other pain. She has lumbar radiculopathy with radiation to the legs bilaterally. Her MR I does show foraminal stenosis with nerve root involvement. Neurology recommended nerve conduction study and EMG and possible lumbar spine CT myelogram to evaluate the health of the nerve roots. Also consider neurosurgical evaluation and intervention if necessary depending on those results. Mrs. Raines has been following with pain management as indicated above. Her ECOG is 3. Past Medical History: Anxiety Hyperlipidemia Hypertension Type II diabetes Past Surgical History: Flu vaccine in 2019 Attempted placement of PowerPort venous access device in 2019 Exam under anesthesia with cervical biopsy, rigid proctoscopy to 15 cm, and cystoscopy in 2019 Allergies: Penicillins Medications: Citalopram Hydrobromide 1 Tablet (of 40 mg) Oral daily Dronabinol 1 Capsule (of 5 mg) Oral t.i.d. PRN Gabapentin 1 Capsule (of 300 mg) Oral t.i.d. HYDROcodone-Acetaminophen 1 (10-325 mg) Tablet Oral q 6 hours PRN Lasix 1 Tablet (of 20 mg) Oral daily Levemir 20 Units (of 100 Units/mL) Subcutaneous at bedtime Levothyroxine Sodium 1 (150 mcg) Tablet Oral daily Lisinopril 1 Tablet (of 20 mg) Oral daily LORazepam 1 Tablet (of 1 mg) Oral t.i.d. PRN metroNIDAZOLE 1 Tablet (of 500 mg) Oral t.i.d. Naloxegol Oxalate 1 Tablet (of 25 mg) Oral daily Naloxone HCl 1 [place](s) (of 4 mg/0.1mL) Liquid Nasal PRN Pantoprazole Sodium 1 Tablet (of 40 mg) Tablet, enteric coated Oral b.i.d. Potassium Chloride ER 1 Tablet (of 10 meq) Tablet, controlled release Oral daily Rosuvastatin Calcium 1 Tablet (of 40 mg) Oral at bedtime traZODone HCl 1 Tablet (of 50 mg) Oral at bedtime Family History: Ms. Sotelo's mother is . Ms. Sotelo's father is . Ms. Sotelo has 2 sisters: 2 . Father had brain aneurysm. Mother of heart attack at age 74. He had 2 sisters who from breast cancer and a neice (one of their daughters) also from breast cancer. Social History: Ms. Sotelo is single and she is a disabled. Ms. Sotelo has never smoked. She has no history of drinking. She is a non-smoker. She does not drink alcohol. Review Of Symptoms: Constitutional Denies fevers, chills, night sweats, excessive fatigue or weight loss. Tired alot. Appetite is still marginal but Marinol has helped. Allergic/Immunologic No reactions. Eyes Denies significant visual changes. No diplopia. No amaurosis. ENMT Denies changes in hearing, sore throat, mouth sores, difficulty or changes in swallowing ability, and/or sinus drainage. Endocrine No diabetes, thyroid disease or hormone replacement. Denies hot flashes or night sweats. Hematologic/Lymphatic Denies easy bruising or bleeding. The patient denies any tender or palpable lymph nodes. Respiratory Denies dyspnea on exertion, chest pain, cough or hemoptysis. Denies orthopnea. Cardiovascular Denies anginal chest pain, palpitations or orthopnea. Gastrointestinal Denies nausea, vomiting, GI bleeding, or constipation. She states her bowels are normal for her. Genitourinary (F) No hematuria, hesitancy, incontinence, vaginal bleeding, discharge or other problems with urination. Musculoskeletal Denies joint pain, swelling or redness. No decreased range of motion. Integumentary Denies chronic rashes, inflammation, ulcerations or skin changes. Neurologic Denies headache, blurred vision, and no areas of focal weakness or numbness. Psychiatric Denies insomnia, cornelio or mood swings. Vital Signs: Performed on Sep 09, 2020 10:16 Height - 66.00 in Weight - 171 lbs (LOW) BSA - 1.87 sq.m BMI - 27.60 Temperature - 98.2 F (LOW) Pulse - 94 /min Respiration - 18 /min BP - 180/93 mm(hg) (HIGH) O2 Sat - 99 % Pain - 8,2 - Ambulatory/capable of all self-care, unable to perform any work activities. Up and about more than 50% of waking hours. (ECOG) Physical Examination: Constitutional Alert, oriented, no acute distress but anxious today. Skin pink/pale, warm and dry. Head Normocephalic; atraumatic. Eyes Conjunctivae and sclerae are clear and without icterus. Pupils are reactive and equal. ENMT No oral exudates, ulcers, masses, thrush or mucositis. Oropharynx clear. Tongue normal. Neck Supple without masses or thyromegaly. No jugular venous distension. Hematologic/Lymphatic No petechiae or purpura. No tender or palpable lymph nodes in the cervical or supraclavicular areas. Respiratory Lungs are clear to auscultation without rhonchi or wheezing. Cardiovascular Regular rate and rhythm of heart without clicks, gallops or rubs. She does have a soft systolic murmur. Abdomen Non-tender, non-distended, no masses or ascites. Good bowel sounds noted in all quads. No guarding or rebound tenderness. No pulsatile masses. Back/Spine Non-tender to palpation. Extremities No visible deformities, no cyanosis, clubbing or edema. Integumentary No rashes or lesions. Neurologic No sensory or motor deficits, normal cerebellar function, in wheelchair for mobility assistance today. Psychiatric Alert and oriented times three. Coherent speech. Verbalizes understanding of our discussions today. Laboratory:Test performed on Sep 09, 2020 08:53 Sodium 139 mmol/L Potassium 3.7 mmol/L Chloride 102 mmol/L CO2 25 mmol/L Anion Gap 15.7 BUN 20 mg/dL Creatinine 0.9 mg/dL Cr Clearance (Est) 66.13 mL/min Glucose 143 mg/dL Osmolality - Calculated 293 mOsm/kg Calcium 10.1 mg/dL Protein, Total 7.2 g/dL Albumin 4.3 g/dL Globulin 2.9 g/dL Bilirubin, Total 1.1 mg/dL ALT (SGPT) 16 U/L AST (SGOT) 13 U/L Alkaline Phosphatase 108 IU/L ESR (Sed Rate) 21 mm/hr WBC 7.1 10 3/uL RBC 4.22 10 6/uL HGB 12.9 g/dL HCT 39.3 % MCV 93.1 fL MCH 30.6 pg MCHC 32.8 g/dL RDW 12.6 % Platelet Count 230 10 3/cmm MPV 9.2 fL Neutrophils 4.76 10 3/uL Lymphocytes 1.5 10 3/uL Monocytes 0.7 10 3/uL Eosinophils 0.0 10 3/uL Basophils 0.0 10 3/uL Neutrophil % 67.4 % Lymphocyte % 21.6 % Monocyte % 9.9 % Eosinophil % 0.4 % Basophils % 0.3 % NRBC % 0 % Test performed on Jun 01, 2020 10:36 LDH (Total) 93 U/L Vitamin B12 463 pg/mL Retic Count % 1.5300 % Impression: 1. Poorly differentiated squamous cell carcinoma of the cervix, stage EVARISTO (T4, N1, M0), with biopsy proven involvement in the bladder and with CT evidence of pelvic and left periaortic lymphadenopathy. On 06/04/2019 she underwent exam under anesthesia with cervical biopsy, cystoscopy with biopsy of the bladder, and rigid proctoscopy to 15 cm. 2. Hypertension. 3. Type 2 diabetes. 4. Hypothyroidism. 5. Chronic anxiety. Plan: 1. Poorly differentiated squamous cell carcinoma of the cervix, stage EVARISTO (T4, N1, M0), with biopsy proven involvement in the bladder and with CT evidence of pelvic and left periaortic lymphadenopathy. She began radiation concurrently with weekly cisplatin chemotherapy on 07/15/2019. She had some nausea and fatigue with the initial chemotherapy treatment, but she was able to tolerate it with acceptable toxicity, and she continued her treatment weekly, completing her 6th infusion of cisplatin on 09/02/2019. She completed radiation on 09/03/2019 to a total dose of 5940 cGy. Her further clinical course was complicated by hospitalization for hyperglycemia, dehydration, and acute renal injury and by development of rectal fissure. She then developed persistent, neuropathic pain in the right leg, and during follow-up she has had very poor performance status. However, she did have a very good response to the chemoradiation by CT scan, and thus far her repeat CT scans have shown no evidence of recurrence/progression of the cervical cancer. As such, she remains on observation/expectant management. She is due for restaging CT scans of the chest, abdomen, and pelvis but that has been delayed as she has had significant lumbar radiculopathy and is currently having that worked up. 2. She has persistent, neuropathic pain in the right leg. There were degenerative changes noted on lumbar spine MRI, but she had no significant improvement with an L4/5 epidural steroid injection on 07/20/2020 via pain management @ [facility]. She has lumbar radiculopathy with radiation to the legs bilaterally. Her MR I does show foraminal stenosis with nerve root involvement. Neurology recommended nerve conduction study and EMG and possible lumbar spine CT myelogram to evaluate the health of the nerve roots. Also consider neurosurgical evaluation and intervention if necessary depending on those results. A. We will have her try gabapentin 300 mg 3 times daily. She may slowly titrate to a total of 900 mg 3 times daily. I discussed titration schedules with her daughter and advised him to titrate very slowly to avoid sedation and side effects. B. Dr. Downey's authorization will increase her Jennifer codon immediate release to 15 mg without Tylenol. C. We will refill her Marinol 5 mg 3 times daily as needed for nausea and appetite. 3. Follow-up plan A. will plan to see her back in 1 month with CBC CMP. B. Her last CT imaging of the abdomen pelvis was with contrast on 03/19/2020. C. Her last PET CT imaging was December 30, 2019. She is due for follow-up imaging but has been working up her lumbar radiculopathy. Signed By: Sesar Breen <<Signature on File>>
== END 2020-09-30 23:59 | disposition home or self-care (01) ==
LOC: ONCMED 05:43
PROVIDERS: PCP Family Medicine; Visit Provider Nurse Practitioner
DX: Z08 Encounter for follow-up examination after completed treatment for malignant neoplasm (principal); Z85.41 Personal history of malignant neoplasm of cervix uteri; I10 Essential (primary) hypertension; E11.9 Type 2 diabetes mellitus without complications; E03.9 Hypothyroidism, unspecified; F41.9 Anxiety disorder, unspecified; Z92.21 Personal history of antineoplastic chemotherapy; Z79.899 Other long term (current) drug therapy
CPT/HCPCS: 36415; 80053; 85025; 85651; 99214

== ENCOUNTER 2020-09-14 21:17 | Emergency (ER) | payer MEDICARE, MEDICAID, SELFPAY ==
[2020-09-14 21:23] VITALS: BP 108/53; PULSE 85; RESP 16; TEMP 37.3; O2SAT 93; BMI 28.5
--- NOTE | 2020-09-14 21:25 | ECG_ITS ---
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 Measurements Intervals [place] Rate: 85 P: 42 MD: 166 QRS: 43 QRSD: 98 T: 54 QT: 368 QTc: 438 Interpretive Statements SINUS RHYTHM Compared to ECG 05/21/2020 01:17:37 No significant changes Electronically Signed On 09-15-2020 0:03:30 CDT by Iam Hernandez M.D. [id number]
--- NOTE | 2020-09-14 21:29 | W.ED.ABDPA2 ---
HPI - Abdominal Pain General: Chief Complaint: Altered Mental Status Stated Complaint: HYPOTENSION/ CONFUSION Time Seen by Provider: 09/14/20 21:18 Source: patient, family and RN notes reviewed Limitations: no limitations History of Present Illness: HPI narrative: This patient is a 75-year-old female who presents to the emergency department with fusion. Patient is wearing a fentanyl patch and also takes hydrocodone at home. Last time she had this issue with hypotension and confusion was related to overmedication. Patient does have chronic kidney disease. Patient is awake and alert and answers questions appropriately upon arrival. We did discuss at length with patient about her chronic conditions and will remove the fentanyl patch during exam and patient states understanding MD elicited complaint: abdominal pain and flank pain Pertinent past history: none Onset (ago): day(s) (5) Pain Consistency: intermittent Location: L flank Severity: moderate Associated Symptoms: Denies chills, dysuria, fever(s), nausea and vomiting Review of Systems General: Reports: 10 or more systems reviewed and unremarkable except in HPI and below Const: Denies: fever(s) or chills Eyes: Denies: change in vision or blurry vision ENMT: Denies: throat pain, hoarseness or mouth pain Card: Denies: chest pain, palpitations, irregular heart rhythm, edema, swelling of feet/ankles or lightheadedness Resp: Denies: dyspnea, productive cough, non-productive cough, wheezing or pain on inspiration GI: Denies: nausea or vomiting : Denies: dysuria Musc: Denies: neck pain, back pain, extremity pain, extremity swelling, joint pain, joint swelling, joint redness, joint warmth or limited range of motion Skin/Breast: Denies: rash, pruritus, erythema or skin tenderness Neuro: Denies: headache(s), numbness in extremities or weakness in extremities Psych: Denies: anxiety or depression PFS ED PFSH: Medical History Acute encephalopathy Acute kidney injury Anxiety -anxiolytics PRN Cervical cancer, FIGO stage EVARISTO Cholelithiasis Chronic anemia CKD (chronic kidney disease) stage 2, GFR 60-89 ml/min Dehydration Diabetes mellitus Diverticulitis of large intestine with perforation and abscess without bleeding Gastroesophageal reflux disease Hypertension Hypothyroidism Low back pain Morbid obesity -BMI-34 kg/m2 Oropharyngeal candidiasis -apparent oral lesions on examination; ongoing odynophagia, dysphagia; symptoms resolved -opportunistic infection in immunocompromised patient -loaded with fluconazole 400 mg x 1, now on 200 mg once daily; due to improvement will switch to PO, plan to treat x 7 days -off IVF hydration; improved oral intake -tolerating GI soft diet -nystatin swish and swallow, magic mouthwash -pain control as needed -appreciate ST evaluation; cleared for regular diet/liquids Rectal fissure -on exam with some intermittent bleeding; no more so far -continue to monitor H/H; drop likely dilutional Surgical History H/O pelvic surgery Cervical biopsy, cystoscopy with biopsy, rigid proctoscopy to 15 cm ([place]) Family History Mother CAD (coronary artery disease) Father Aneurysm brain Sister Cancer breast cancer Family/Other Cancer breast cancer in niece Social History Smoking and tobacco status: never smoked Second hand smoke exposure: No Alcohol intake: never Household members: children Housing: House History of recent travel: No Female Reproductive History: Para: 2 Physical Exam Const: COMMON NORMALS: no acute distress, average body habitus, patient oriented x3, no limitations, healthy appearing, alert and well nourished HENMT: COMMON NORMALS: normocephalic, atraumatic, external ears normal, EAC's normal, TM's normal bilaterally, Normal external nose present and Normal nasal mucous membranes and turbinates present HEAD & SCALP: normocephalic and atraumatic NOSE: Normal external nose present and Normal nasal mucous membranes and turbinates present EXTERNAL EAR: Yes external ears normal EXTERNAL AUDITORY CANAL: EAC's normal TYMPANIC MEMBRANE: TM's normal bilaterally Neck/C-Spine: COMMON NORMALS: full ROM, no lymphadenopathy, supple, no meningeal signs, no JVD, Thyroid normal and No carotid bruits THYROID: Thyroid normal Chest: COMMONS NORMALS: normal inspection of the chest, normal palpation of entire chest wall, normal inspection of the breasts and normal palpation of the breasts Breast/axilla inspection: Yes normal inspection of the breasts BREAST/AXILLA PALPATION: Yes normal palpation of the breasts Resp: COMMON NORMALS: normal respiratory effort, No retractions, No use of accessory muscles, clear to auscultation bilaterally and percussion normal AUSCULTATION: clear to auscultation bilaterally PERCUSSION: percussion normal Cardio: COMMON NORMALS: no JVD, regular rate, regular rhythm, S1 normal heart sound present, S2 normal heart sound present, No gallops present (Cardio), No clicks present (Cardio), No murmurs present (Cardio), No rub (Cardio) and Peripheral pulses 2+ throughout RATE: regular rate RHYTHM: regular rhythm HEART SOUNDS: S1 normal heart sound present and S2 normal heart sound present PERIPHERAL PULSES: Peripheral pulses 2+ throughout GI: COMMON NORMALS: Normal to inspection, nondistended, normoactive bowel sounds present, Soft to palpation, non-tender, No hepatosplenomegaly present, no masses and no bruits PALPATION: Yes Soft to palpation and Yes No hepatosplenomegaly present : COMMON NORMALS: Yes no CVA tenderness, Yes normal external appearance, Yes normal appearance of the vagina, Yes normal appearance of the cervix, Yes normal bimanual exam, Yes No adnexal tenderness and Yes no masses BLADDER/KIDNEY EXAM: Yes no CVA tenderness BIMANUAL EXAM - VAGINA & UTERUS: Yes normal bimanual exam Back/Pelvis: COMMON NORMALS: no CVA tenderness, thoracic and lumbar spine normal to inspection, no thoracic nor lumbar tenderness, thoraco-lumbar ROM normal and straight leg raise negative bilaterally Extremity: COMMON NORMALS: normal to inspection, full ROM, capillary refill normal, no joint enlargement, no clubbing, cyanosis or edema, no calf tenderness and no pedal edema Neuro: COMMON NORMALS: patient oriented x3 SENSORIUM/ORIENTATION: Yes alert MENINGEAL SIGNS: Yes no meningeal signs Course Reevaluation(s): Reevaluation #1: Patient is awake and alert and has no deficits. Patient had her fentanyl patch patch removed in the emergency department. Patient does have a urinary tract infection patient be given IV dose of Rocephin in the emergency department and then be discharged home afterward. On medications for 5 days. Had a long discussion with patient and her daughter at the bedside about interactions of pain medications. Patient's been taking a fentanyl patch and hydrocodone and has had issues with confusion in the past related to taking a small medication simultaneously. They discussed options and they will not give fentanyl patch any longer that would just continue with hydrocodone and follow-up with her chronic pain specialist. They understand all instructions and will be discharged home after antibiotics. Time: 22:28 Vital Signs: Vital signs: Vital Signs Temperature 99.1 F 09/14/20 21:23 Pulse Rate 85 09/14/20 21:35 Respiratory Rate 17 09/14/20 21:35 Blood Pressure 108/53 09/14/20 21:35 Pulse Oximetry 94 09/14/20 21:35 MDM - Abdominal Pain Lab Data: Labs: Lab Results 09/14/20 09/14/20 09/14/20 Range/Units 21:00 21:00 21:00 WBC 10.8 H (4.0-10.0) 10^3/ uL RBC 3.55 L (4.1-5.3) 10^6/u L Hgb 11.0 L (11.5-15.3) g/dL Hct 35.3 L (37.0-47.0) % MCV 99.4 H (81-99) fL MCH 31.0 (28.0-34.0) pg MCHC 31.2 (30.0-36.0) g/dL RDW 13.0 (12.1-15.1) % Plt Count 152 (130-400) 10^3/c mm MPV 9.7 (7.4-10.4) fL Neut % (Auto) 79.7 % Lymph % (Auto) 11.6 % [place] % (Auto) 8.1 % Eos % (Auto) 0.1 % Baso % (Auto) 0.1 % Neut # (Auto) 8.61 H (1.8-7.7) 10^3/u L Lymph # (Auto) 1.3 (0.8-4.8) 10^3/u L [place] # (Auto) 0.9 (0.2-0.9) 10^3/u L Eos # (Auto) 0.0 (0.0-0.8) 10^3/u L Baso # (Auto) 0.0 (0.0-0.1) 10^3/u L Nucleated RBC % (a uto) 0 % Nucleated RBCs # 0.0 /100WBC PT 13.70 (12.1-14.9) SECO NDS INR 1.02 (0.8-1.2) APTT 23.6 L (23.9-36.7) SECO NDS Sodium 136 (136-145) mmol/L Potassium 5.4 H (3.5-5.1) mmol/L Chloride 101 (98-107) mmol/L Carbon Dioxide 24 (22-29) mmol/L Anion Gap 16.4 (5-19) BUN 58 H (8-23) mg/dL Creatinine 2.4 H (0.5-0.9) mg/dL GFR Calculation Not Reportable Glucose 145 H (65-115) mg/dL Calculated Osmolal ity 301 H (285-295) mOsm/k g Calcium 9.4 (8.5-10.5) mg/dL Total Bilirubin 1.0 (0.15-1.2) mg/dL AST 13 (0-32) U/L ALT 19 (0-33) U/L Alkaline Phosphata se 109 H (35-105) IU/L Total Protein 6.7 (6.6-8.7) g/dL Albumin 3.9 (3.5-5.2) g/dL Globulin 2.8 (1.3-4.6) g/dL Urine Color (Yellow) Urine Appearance (CLEAR) Urine pH (5-7) Ur Specific Gravit y (1.005-1.030) Urine Protein (Negative) Urine Glucose (UA) (Normal) Urine Ketones (Negative) Urine Blood (Negative) Urine Nitrate (Negative) Urine Bilirubin (Negative) Urine Urobilinogen (Negative) mg/dL Ur Leukocyte [place] (Negative) Urine RBC (0-2) /hpf Urine WBC (0-5) /hpf Ur Squamous Epith Cells (0-5) /hpf Amorphous Sediment Urine Bacteria (NONE) /hpf Urine Opiates Scre en (Negative) ng/mL Ur Barbiturates Sc reen (Negative) ng/mL Ur Phencyclidine S crn (Negative) ng/mL Ur Amphetamines Sc reen (Negative) ng/mL U Benzodiazepines Scrn (Negative) ng/mL Urine Cocaine Scre en (Negative) ng/mL U Marijuana (THC) Screen (Negative) ng/mL 09/14/20 09/14/20 Range/Units 22:00 22:00 WBC (4.0-10.0) 10^3/ uL RBC (4.1-5.3) 10^6/u L Hgb (11.5-15.3) g/dL Hct (37.0-47.0) % MCV (81-99) fL MCH (28.0-34.0) pg MCHC (30.0-36.0) g/dL RDW (12.1-15.1) % Plt Count (130-400) 10^3/c mm MPV (7.4-10.4) fL Neut % (Auto) % Lymph % (Auto) % [place] % (Auto) % Eos % (Auto) % Baso % (Auto) % Neut # (Auto) (1.8-7.7) 10^3/u L Lymph # (Auto) (0.8-4.8) 10^3/u L [place] # (Auto) (0.2-0.9) 10^3/u L Eos # (Auto) (0.0-0.8) 10^3/u L Baso # (Auto) (0.0-0.1) 10^3/u L Nucleated RBC % (a uto) % Nucleated RBCs # /100WBC PT (12.1-14.9) SECO NDS INR (0.8-1.2) APTT (23.9-36.7) SECO NDS Sodium (136-145) mmol/L Potassium (3.5-5.1) mmol/L Chloride (98-107) mmol/L Carbon Dioxide (22-29) mmol/L Anion Gap (5-19) BUN (8-23) mg/dL Creatinine (0.5-0.9) mg/dL GFR Calculation Glucose (65-115) mg/dL Calculated Osmolal ity (285-295) mOsm/k g Calcium (8.5-10.5) mg/dL Total Bilirubin (0.15-1.2) mg/dL AST (0-32) U/L ALT (0-33) U/L Alkaline Phosphata se (35-105) IU/L Total Protein (6.6-8.7) g/dL Albumin (3.5-5.2) g/dL Globulin (1.3-4.6) g/dL Urine Color Yellow (Yellow) Urine Appearance Clear (CLEAR) Urine pH 5 (5-7) Ur Specific Gravit y 1.025 (1.005-1.030) Urine Protein Neg (Negative) Urine Glucose (UA) Norm (Normal) Urine Ketones Negative (Negative) Urine Blood Neg (Negative) Urine Nitrate Negative (Negative) Urine Bilirubin 1+ H (Negative) Urine Urobilinogen Norm (Negative) mg/dL Ur Leukocyte [place] 2+ H (Negative) Urine RBC 0-4 H (0-2) /hpf Urine WBC 15-25 H (0-5) /hpf Ur Squamous Epith Cells 0-4 H (0-5) /hpf Amorphous Sediment Not Reportable Urine Bacteria 2+ H (NONE) /hpf Urine Opiates Scre en Negative (Negative) ng/mL Ur Barbiturates Sc reen Negative (Negative) ng/mL Ur Phencyclidine S crn Negative (Negative) ng/mL Ur Amphetamines Sc reen Negative (Negative) ng/mL U Benzodiazepines Scrn Positive H (Negative) ng/mL Urine Cocaine Scre en Negative (Negative) ng/mL U Marijuana (THC) Screen Positive H (Negative) ng/mL EKG Data ^: EKG 1: Attestation: I personally reviewed and interpreted this EKG as follows: EKG interpretation date: 09/14/20 EKG interpretation time: 21:34 Prior EKG tracings: available for review Interpretation: Normal EKG rate 85 Other Data: Attestation for Other Data: I personally reviewed and interpreted the following: Discharge Plan Discharge Patient Disposition: Home Clinical Impression: CKD (chronic kidney disease) stage 2, GFR 60-89 ml/min, Acute UTI, Side effect of drug Condition: Stable Prescriptions: New nitrofurantoin macrocrystal 100 mg capsule 100 mg PO BID 5 Days Qty: 10 RF: 0 No Action naloxone 4 mg/actuation spray,non-aerosol 4 mg INTRANASAL Q3M PRN (Reason: opioid overdose) Qty: 2 RF: 0 Levemir FlexTouch U-100 Insuln 100 unit/mL (3 mL) Insulin Pen 20 unit SUBCUT BEDTIME RF: 0 pantoprazole 20 mg tablet,delayed release (DR/EC) 40 mg PO BID PRN (Reason: stomach acid/heartburn) Qty: 0 RF: 0 oxycodone-acetaminophen 5-325 mg Tablet 1 tab PO Q4H PRN (Reason: Moderate Pain) Qty: 20 RF: 0 lisinopril 20 mg tablet 20 mg PO DAILY Qty: 30 RF: 0 citalopram 40 mg tablet 40 mg PO DAILY RF: 0 levothyroxine 150 mcg tablet 150 mcg PO 0600 RF: 0 lorazepam 1 mg tablet 0.5 mg PO TID PRN (Reason: Nausea) RF: 0 rosuvastatin [Crestor] 40 mg tablet 40 mg PO BEDTIME RF: 0 trazodone 50 mg tablet 100 mg PO BEDTIME RF: 0 potassium chloride 10 mEq tablet extended release 20 meq PO DAILY RF: 0 dronabinol 5 mg capsule 5 mg PO TID PRN (Reason: nausea and vomiting) Qty: 14 RF: 0 furosemide [Lasix] 20 mg Tablet 20 mg PO DAILY RF: 0 Hold Instructions: Resume on 05/27/20. gabapentin 100 mg capsule 100 mg PO BID RF: 0 Discharge Orders: Discharge ED (Routine); Ordered 09/14/20 Ordered By: Thiago Asher Referrals: Gato Downey MD [Primary Care Provider] - Discharge Diet: Advance as tolerated Discharge Activity: Resume usual activity Patient Instructions: Opioid Safety Activity Restrictions/Additional Instructions: Patient should monitor pain medication interactions closely. Specially due to patient's kidney function. Encourage p.o. fluids. Take medications as prescribed for your urinary tract infection. Follow-up with PCP in 2 to 3 days. Return to the emergency department if symptoms do not improve or worsen. 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
--- NOTE | 2020-09-14 21:33 | PC.NURSE ---
Fentanyl patch 25 mcg to left upper arm removed per Dr Asher and disposed of in sharps container.
[2020-09-14 21:35] VITALS: BP 108/53; PULSE 85; RESP 17; O2SAT 94
[2020-09-14 21:48] LABS: Basophils % 0.1 %; Eosinophils % 0.1 %; Hematocrit 35.3 % (37.0-47.0); Lymphocytes # 1.3 10^3/uL (0.8-4.8); Lymphocytes % 11.6 %; Mean Corpuscular HGB Conc 31.2 g/dL (30.0-36.0); Mean Corpuscular Volume 99.4 fL (81-99); Mean Platelet Volume 9.7 fL (7.4-10.4); Monocytes # 0.9 10^3/uL (0.2-0.9); Monocytes % 8.1 %; Neutrophils # 8.61 10^3/uL (1.8-7.7); Neutrophils % 79.7 %; Nucleated Red Blood Cells % 0 %; Platelet Count 152 10^3/cmm (130-400); Red Blood Count 3.55 10^6/uL (4.1-5.3); White Blood Count 10.8 10^3/uL (4.0-10.0)
[2020-09-14 21:49] LABS: INR 1.02 (0.8-1.2)
[2020-09-14 21:50] LABS: Partial Thromboplastin Time 23.6 SECONDS (23.9-36.7)
[2020-09-14 21:54] LABS: Alanine Aminotransferase 19 U/L (0-33); Albumin Level 3.9 g/dL (3.5-5.2); Alkaline Phosphatase 109 IU/L (35-105); Anion Gap 16.4 (5-19); Aspartate Amino Transferase 13 U/L (0-32); Blood Urea Nitrogen 58 mg/dL (8-23); Calcium 9.4 mg/dL (8.5-10.5); Carbon Dioxide 24 mmol/L (22-29); Chloride 101 mmol/L (98-107); Globulin 2.8 g/dL (1.3-4.6); Glucose 145 mg/dL (65-115); Osmolality Calculated 301 mOsm/kg (285-295); Potassium 5.4 mmol/L (3.5-5.1); Sodium 136 mmol/L (136-145); Total Protein 6.7 g/dL (6.6-8.7)
[2020-09-14 22:12] LABS: Glucose Urine UA Norm (Normal); Ketones Urine Negative (Negative); Protein Urine Neg (Negative); Specific Gravity, Urine 1.025 (1.005-1.030); Urine Appearance Clear (CLEAR); Urine Color Yellow (Yellow); pH Urine 5 (5-7)
[2020-09-14 22:13] LABS: Add Urine Microscopic? YES; Bilirubin Urine 1+ (Negative); Blood Urine Neg (Negative); Leukocyte Esterase Urine 2+ (Negative); Nitrate Urine Negative (Negative); RBC Urine 0-4 /hpf (0-2); Squamous Epithelial Cell Urine 0-4 /hpf (0-5); Urobilinogen Urine Norm (Negative); WBC Urine 15-25 /hpf (0-5)
[2020-09-14 22:14] LABS: Add Urine Culture? Yes; Bacteria Urine 2+ /hpf
[2020-09-14 22:16] LABS: Amphetamines Screen Urine Negative (Negative); Barbiturates Screen Urine Negative (Negative); Benzodiazepines Screen Urine Positive (Negative); Cocaine Screen Urine Negative (Negative); Opiate Screen Urine Negative (Negative); PCP Screen Urine Negative (Negative); THC Screen Urine Positive (Negative)
[2020-09-14] MEDS: cefTRIAXone 1,000 MG in sodium chloride 0.9% (plus) 50 ML 100 MG IV (22:33)
[2020-09-14 22:56] VITALS: BP 109/40; PULSE 86; RESP 16; O2SAT 95
== END 2020-09-14 22:57 | disposition home or self-care (01) ==
PROVIDERS: Emergency Provider Emergency Medicine; PCP Internal Medicine Medical Oncology
DX: N39.0 Urinary tract infection, site not specified (principal); T50.905A Adverse effect of unspecified drugs, medicaments and biological substances, initial encounter; I12.9 Hypertensive chronic kidney disease with stage 1 through stage 4 chronic kidney disease, or unspecified chronic kidney disease; E11.22 Type 2 diabetes mellitus with diabetic chronic kidney disease; N18.2 Chronic kidney disease, stage 2 (mild); Z79.4 Long term (current) use of insulin; Z85.41 Personal history of malignant neoplasm of cervix uteri
CPT/HCPCS: 80053; 80306; 81001; 85025; 85610; 85730; 87086; 93005; 96365; 99283; J0696

== ENCOUNTER → 2020-09-28 09:46 | Outpatient (BNVA) | payer MEDICARE, MEDICAID, SELFPAY | PROVIDERS: PCP Internal Medicine Medical Oncology; Visit Provider Specialist | DX: R20.0 Anesthesia of skin (principal); G54.1 Lumbosacral plexus disorders; W88.8XXA Exposure to other ionizing radiation, initial encounter; C53.9 Malignant neoplasm of cervix uteri, unspecified | CPT/HCPCS: 95886; 95909; 99215 ==

== ENCOUNTER 2020-10-26 10:30 | Outpatient (RCR) | payer MEDICARE, MEDICAID, SELFPAY ==
[2020-10-12 14:14] LABS: Basophils % 0.2 %; Eosinophils % 0.2 %; Hematocrit 35.4 % (37.0-47.0); Hemoglobin 11.2 g/dL (11.5-15.3); Lymphocytes # 0.6 10^3/uL (0.8-4.8); Mean Corpuscular HGB Conc 31.6 g/dL (30.0-36.0); Mean Corpuscular Hemoglobin 31.2 pg (28.0-34.0); Mean Corpuscular Volume 98.6 fL (81-99); Mean Platelet Volume 9.2 fL (7.4-10.4); Monocytes # 0.4 10^3/uL (0.2-0.9); Monocytes % 6.1 %; Neutrophils # 4.69 10^3/uL (1.8-7.7); Neutrophils % 82.1 %; Nucleated Red Blood Cells % 0 %; Platelet Count 135 10^3/cmm (130-400); Red Blood Count 3.59 10^6/uL (4.1-5.3); Red Cell Distribution Width 13.7 % (12.1-15.1); White Blood Count 5.7 10^3/uL (4.0-10.0)
[2020-10-12 14:42] LABS: Alanine Aminotransferase 137 U/L (0-33); Albumin Level 3.7 g/dL (3.5-5.2); Alkaline Phosphatase 84 IU/L (35-105); Anion Gap 14.1 (5-19); Aspartate Amino Transferase 62 U/L (0-32); Blood Urea Nitrogen 20 mg/dL (8-23); Calcium 8.9 mg/dL (8.5-10.5); Carbon Dioxide 26 mmol/L (22-29); Chloride 106 mmol/L (98-107); Globulin 2.1 g/dL (1.3-4.6); Glucose 175 mg/dL (65-115); Osmolality Calculated 301 mOsm/kg (285-295); Potassium 4.1 mmol/L (3.5-5.1); Sodium 142 mmol/L (136-145); Total Bilirubin 0.8 mg/dL (0.15-1.2); Total Protein 5.8 g/dL (6.6-8.7)
[2020-10-12 15:00] LABS: Erythrocyte Sedimentation Rate 26 mm/hr (0-15)
--- NOTE | 2020-10-14 07:22 | ONC FU_ITS ---
Dr. Downey Patient Follow-Up Note Patient: Sharon Sotelo Unit #: [id number]: 1945 Dicatated By: Gato Downey M.D.Date of Visit:Oct 12, 2020 Onc Med Follow-up/Prog Note Chief Complaint: Cervical cancer. 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 On 05/03/2019 she had presented to the emergency room with pain in the left lower quadrant/left flank area and difficulty voiding. Her CT abdomen/pelvis showed a soft tissue mass which was involving the left superior lateral aspect of the urinary bladder and was contiguous with the cervix. It measured at least 4 x 4.9 x 5.8 cm. There was associated ureterovesical junction obstruction and moderate left hydronephrosis. There was associated adenopathy including a left inferior pelvic lymph node measuring 1 x 1.5 cm, a left para-aortic lymph node measuring 1.4 cm, a common iliac lymph node measuring 1.1 cm, and bilateral external iliac lymph nodes measuring up to 2.1 x 4.2 cm on the right and 1 x 1.7 cm on the left. She was referred to Dr. Ybarra in [place]. On 06/04/2019 she underwent exam under anesthesia with cervical biopsy, cystoscopy with biopsy, and rigid proctoscopy to 15 cm. Her tumor appeared to be fixed to the left pelvic sidewall and there was noted to be right-sided parametrial disease. On the cystoscopy the tumor did appear to be involving the bladder. The cervical biopsy and the bladder biopsy both showed poorly differentiated squamous cell carcinoma. She was recommended to undergo chemoradiation. She began radiation concurrently with weekly cisplatin chemotherapy on 07/15/2019. She experienced no acute toxicity with her initial infusion of cisplatin. She was then able to continue her treatment weekly, completing her 6th infusion of cisplatin on 09/02/2019. She completed radiation on 09/03/2019 to a total dose of 5940 cGy. During her treatment she did require some growth factor support with Neupogen. She also required IV hydration on multiple occasions for nausea and poor oral intake. I had seen her for a follow-up visit on 09/18/2019. At that point she was really doing quite poorly, as she had gotten very weak and she was having significant anorexia/nausea, so that her oral intake was very poor. She was significantly pancytopenic with hemoglobin 6.4 g, white blood cell count 2000, and platelet count 66,000. She was transfused and she was given further IV hydration and supportive care measures. During subsequent follow-up there was further decline in the granulocyte count, nadiring at approximately 1000. She then began to show gradual improvement in her clinical status. However, during that time she had been to the radiation oncologist in [place] on 2 occasions, and on both she was declined for her brachytherapy. She eventually opted against treatment. On 12/21/2019 she was admitted to the hospital with complaints of chest pain in association with eating and rectal pain/bleeding. She had evidence of oral pharyngeal candidiasis and there was associated dehydration and acute renal injury. She also was significantly hyperglycemic. She had symptomatic improvement with IV hydration and IV fluconazole. Also was improvement in her renal function. She remained moderately anemic, but above transfusion threshold. The rectal bleeding was thought to be most likely due to anal fissure, and that improved with conservative management. Following discharge from the hospital, she did start Levemir 20 units daily at bedtime along with regular insulin per sliding scale. She began tapering off dexamethasone. She was then seen Dr. Keita with pain in the left lower quadrant of her abdomen. Her CT abdomen/pelvis on 02/11/2020 showed wall thickening of the sigmoid colon with associated inflammatory change and fluid. There were diverticula noted, and it was felt that the appearance was most consistent with sigmoid colon diverticulitis. There was no evidence of recurrent or metastatic neoplasm. She began on empiric antibiotic coverage with ciprofloxacin and metronidazole. Despite that, her symptoms worsened. On 02/14/2020 she was admitted to the hospital with abdominal abscess in association with bowel perforation. She was given antibiotic coverage with ceftazidime, vancomycin, and metronidazole. She was significantly anemic, requiring PRBC transfusion. She was found to have positive stool FOB, and she was taken off apixaban. She improved clinically. On 02/20/2020 she was discharged home to continue outpatient antibiotic coverage with ertapenem 1 g IV daily. She restarted apixaban with the dosage reduced to 2.5 mg twice daily. I had seen her for a follow-up visit on 03/04/2020. At that point she was still on her antibiotic therapy, and she was showing clinical improvement. Her further clinical course was complicated by development of pain in her right lower back and right leg, which was clinically felt to be consistent with sciatica. She has had multiple ER visits for it this month. Her right hip x-ray on 04/04/2020 showed radiolucencies in the proximal femoral shaft with some endosteal scalloping and possibly involvement of the lateral cortex and medullary canal felt to be most consistent with metastatic disease versus myeloma versus osteomyelitis. Lumbar spine CT on 04/12/2020 showed degenerative changes but no evidence of metastatic disease. CT abdomen/pelvis on 04/21/2020 showed no evidence of residual or recurrent diverticular abscess. There was evidence of diffuse endometrial thickening which was felt to be suspicious for neoplasia, but the findings were similar to the previous study from March 2020. CT of the right femur on 04/22/2020 showed no evidence of metastatic lesions in the right proximal femur and no evidence of pathologic fracture. A small amount of endosteal scalloping of the right proximal femoral shaft was present on the prior PET/CT scans and the appearance was noted to be unchanged. This was felt to most likely be a benign finding. I had seen her for a follow-up visit on 04/24/2020. At that time she was still complaining of severe pain in the right leg. In the absence of any CT evidence of recurrence/progression of the cervical cancer, she continued symptomatic management. On 05/21/2020 she was admitted to the hospital after falling at home. There were no new findings on her repeat CT abdomen/pelvis. MRI of the lumbar spine showed mild disc bulging at multiple levels. A left foraminal disc protrusion at L3-L4 was noted to abut the L3 nerve root and there was also mild enlargement on the L4 nerve root in the subarticular recess. There was mild bilateral foraminal narrowing at L5-S1 with focal disc protrusion in the right lateral recess. There was no evidence of metastatic disease noted on that study. With those findings she was referred to pain management and she underwent an L4/5 interlaminar epidural steroid injection on 07/20/2020. I had seen her for a follow-up visit again on 08/04/2020. She reported no significant improvement in the pain following the epidural steroid injection. She was having neuropathy symptoms in both legs, at that point I had suspected that the pain was most likely due to neuropathy from the chemotherapy and/or radiation. She continued symptomatic management with immediate release oxycodone. Her other medical illnesses include hypertension, type 2 diabetes, and hypothyroidism. She also has chronic anxiety. She is a non-smoker. INTERIM HISTORY: She is seen for a follow-up visit. Her main complaint is her pain, which is now in her back and both legs. She gets some benefit taking immediate release oxycodone, but she still has constant pain which she rates as a least a 7/10. She has very limited activity. She stands up only to get to the commode or wheelchair. She has been eating better since she started Marinol. She has no fever or night sweats. She does not complain of shortness of breath, cough, or chest pain. Recently she has had some heartburn. Her constipation is being managed adequately with Movantik. She has no complaints. She does not complain of headache or dizziness. She continues to have numbness/tingling in both legs and feet. Medications: Citalopram Hydrobromide 1 Tablet (of 40 mg) Oral daily, Dronabinol 1 Capsule (of 5 mg) Oral t.i.d. PRN, Gabapentin 1 Capsule (of 300 mg) Oral t.i.d., HYDROcodone-Acetaminophen 1 (10-325 mg) Tablet Oral q 6 hours PRN, Lasix 1 Tablet (of 20 mg) Oral daily, Levemir 20 Units (of 100 Units/mL) Subcutaneous at bedtime, Levothyroxine Sodium 1 (150 mcg) Tablet Oral daily, Lisinopril 1 Tablet (of 20 mg) Oral daily, LORazepam 1 Tablet (of 1 mg) Oral t.i.d. PRN, metroNIDAZOLE 1 Tablet (of 500 mg) Oral t.i.d., Naloxegol Oxalate 1 Tablet (of 25 mg) Oral daily, Naloxone HCl 1 Ogden(s) (of 4 mg/0.1mL) Liquid Nasal PRN, Pantoprazole Sodium 1 Tablet (of 40 mg) Tablet, enteric coated Oral b.i.d., Potassium Chloride ER 1 Tablet (of 10 meq) Tablet, controlled release Oral daily, Rosuvastatin Calcium 1 Tablet (of 40 mg) Oral at bedtime, traZODone HCl 1 Tablet (of 50 mg) Oral at bedtime Allergies: Penicillins Vital Signs: Performed on Oct 12, 2020 14:47 Height - 66.00 in Weight - 176.6 lbs (HIGH) BSA - 1.90 sq.m BMI - 28.50 Temperature - 97.2 F (LOW) Pulse - 86 /min Respiration - 18 /min BP - 156/66 mm(hg) (HIGH) O2 Sat - 97 % Pain - 7 Fatigue - 6 Physical Examination: Constitutional - She appears generally weak, Eyes - Sclerae nonicteric. Conjunctivae clear, ENMT - No lesions noted in the oral cavity, Hematologic/Lymphatic - No cervical, clavicular, or axillary adenopathy, Respiratory - Lungs sound clear, Cardiovascular - Heart rhythm is regular. There is a II/ systolic murmur. There is no gallop or rub noted, Abdomen - Soft. Liver and spleen are not enlarged. There is no abdominal mass or ascites noted. There is no inguinal adenopathy, Extremities - No edema, Neurologic - There is weakness in both legs. Lab/Imaging: Test performed on Oct 12, 2020 13:56 Sodium 142 mmol/L Potassium 4.1 mmol/L Chloride 106 mmol/L CO2 26 mmol/L Anion Gap 14.1 BUN 20 mg/dL Creatinine 0.7 mg/dL Cr Clearance (Est) 87.81 mL/min Glucose 175 mg/dL Osmolality - Calculated 301 mOsm/kg Calcium 8.9 mg/dL Protein, Total 5.8 g/dL Albumin 3.7 g/dL Globulin 2.1 g/dL Bilirubin, Total 0.8 mg/dL ALT (SGPT) 137 U/L AST (SGOT) 62 U/L Alkaline Phosphatase 84 IU/L ESR (Sed Rate) 26 mm/hr WBC 5.7 10 3/uL RBC 3.59 10 6/uL HGB 11.2 g/dL HCT 35.4 % MCV 98.6 fL MCH 31.2 pg MCHC 31.6 g/dL RDW 13.7 % Platelet Count 135 10 3/cmm MPV 9.2 fL Neutrophils 4.69 10 3/uL Lymphocytes 0.6 10 3/uL Monocytes 0.4 10 3/uL Eosinophils 0.0 10 3/uL Basophils 0.0 10 3/uL Neutrophil % 82.1 % Lymphocyte % 11.0 % Monocyte % 6.1 % Eosinophil % 0.2 % Basophils % 0.2 % NRBC % 0 % Problem List: 1. Poorly differentiated squamous cell carcinoma of the cervix, stage EVARISTO (T4, N1, M0), with biopsy proven involvement in the bladder and with CT evidence of pelvic and left periaortic lymphadenopathy. On 06/04/2019 she underwent exam under anesthesia with cervical biopsy, cystoscopy with biopsy of the bladder, and rigid proctoscopy to 15 cm. 2. Hypertension. 3. Type 2 diabetes. 4. Hypothyroidism. 5. Chronic anxiety. Problems Addressed with this Encounter and Plan: 1. 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 She began radiation concurrently with weekly cisplatin chemotherapy on 07/15/2019. She had some nausea and fatigue with the initial chemotherapy treatment, but she was able to tolerate it with acceptable toxicity, and she continued her treatment weekly, completing her 6th infusion of cisplatin on 09/02/2019. She completed radiation on 09/03/2019 to a total dose of 5940 cGy. Her further clinical course was complicated by hospitalization for hyperglycemia, dehydration, and acute renal injury and by development of rectal fissure. She then developed persistent, neuropathic pain in the right leg, and during follow-up she has had very poor performance status. However, she did have a very good response to the chemoradiation by CT scan. As of May [address] scans had shown no evidence of recurrence/progression of the cervical cancer, and she continued observation/expectant management. She will be scheduled now for restaging CT scans of the chest, abdomen, and pelvis. She will have further evaluation as indicated. I will tentatively plan a follow-up visit in 3 months. 2. She has persistent pain. It had initially started in the lower back and right leg and it was thought to be sciatica. However, it has progressively worsened. It now involves both legs and has progressed to the point that she is now virtually nonambulatory. She has other neuropathy symptoms in her legs, and I suspect that it is a treatment related neuropathic process. She will continue symptomatic management, as there is no specific treatment available. Her pain management, though, is problematic, as opiate overdosage was felt to be a possible contributing factor with one of her previous hospital admissions. I reviewed this with the patient's daughter. At the time she had been on a fentanyl patch along with her oral pain medication and they think the problem occurred because she become dehydrated. At this point they are inquiring about the possibility of going back on the fentanyl patch, as she is in constant pain even with the immediate release oxycodone. As she is now maintaining adequate oral intake, she will be given a prescription to restart fentanyl at 25 mcg/h. She will continue the immediate release oxycodone 30 mg up to 4 times a day as needed for breakthrough pain. She will continue the Movantik for opiate related constipation. 3. She had poor appetite and poor oral intake, but that has improved with dronabinol. It will be continued at 5 mg 3 times daily. Signed By: Gato Downey M.D. <<Signature on File>>
--- NOTE | 2020-10-26 09:30 | CT_ITS ---
WS: [id number] Exam: CT chest abd pel w con* Date/Time of Exam: 10/26/2020 9:30 AM Reason For Exam: CERVICAL CANCER DLP: 2656.[address] scans at [facility] use at least one of these dose optimization techniques: automat ed exposure control; mA and/or kV adjustment per patient size (includes targeted exams where dose is matched to clinical indication); or iterative reconstruction. 100 mL of nonionic contrast administere d intravenously. CT scan of the chest with contrast. The lungs are clear and fully expanded. No evidence of pulmonary nodule or mass. The airway is patent. No significant lymphadenopathy in the chest. The central pulmon lubna arteries are clear. The thoracic aorta is normal in caliber. No pleural or pericardial effusion. Coronary artery calcifications. No destructive bone lesions or significant chest wall defects. Normal thyroid tissue. CT/CT chest abd pel w con* IMPRESSION: 1. No mass, lymphadenopathy or acute finding in the chest. CT scan of the abdomen and pelvis with contrast. The liver, stomach, spleen and pancreas appear normal. Normal adrenal glands. N umerous prominent calcified stones in the gallbladder. No signs of acute cholec ystitis. The abdominal aorta is normal in caliber. Small bowel loops are not di lated. Unremarkable kidneys. Normal appendix visualized. There is diverticulosi s of the sigmoid colon. No sign of acute diverticulitis. No free fluid or lymph adenopathy in the abdomen or pelvis. Tiny fat filled periumbilical hernia. Ther e is an ill-defined endometrial mass with fluid in the endometrial cavity. No pelvic lymphadenopathy or free fluid. Unremarkable urinary bladder. No destruct pebbles bone lesions are seen. Pars defect of L5 with grade 1 spondylolisthesis. IMPRESSION: 1. Ill-defined lobulated endometrial mass suspicious for malignancy. There is a lso abnormal fluid collection in the endometrial cavity. 2. No lymphadenopathy or ascites in the abdomen or pelvis. Cholelithiasis. Sigm oid diverticulosis. Other minor findings.
[2020-10-26] MEDS: iohexol 300 mg/mL 50 mL Btl PO (10:16)
[2020-10-26] MEDS: iohexol 300 mg/mL 100 mL Btl IV (10:42)
== END 2020-10-30 23:59 | disposition home or self-care (01) ==
LOC: ONCMED 10:30
PROVIDERS: Visit Provider Internal Medicine Medical Oncology
DX: C53.9 Malignant neoplasm of cervix uteri, unspecified (principal); K80.20 Calculus of gallbladder without cholecystitis without obstruction; K57.30 Diverticulosis of large intestine without perforation or abscess without bleeding; I10 Essential (primary) hypertension; E11.9 Type 2 diabetes mellitus without complications; E03.9 Hypothyroidism, unspecified; F41.9 Anxiety disorder, unspecified; Z79.899 Other long term (current) drug therapy
CPT/HCPCS: 36415; 71260; 74177; 80053; 85025; 85651; 99215; Q9967

== ENCOUNTER 2020-11-05 06:08 | Outpatient (RCR) | payer MEDICARE, MEDICAID, SELFPAY ==
--- NOTE | 2020-11-08 13:01 | ONC FU_ITS ---
Dr. Downey Patient Follow-Up Note Patient: Sharon Sotelo Unit #: [id number]: 1945 Dicatated By: Gato Downey M.D.Date of Visit:November 05, 2020 Onc Med Follow-up/Prog Note Chief Complaint: Cervical cancer. 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 On 05/03/2019 she had presented to the emergency room with pain in the left lower quadrant/left flank area and difficulty voiding. Her CT abdomen/pelvis showed a soft tissue mass which was involving the left superior lateral aspect of the urinary bladder and was contiguous with the cervix. It measured at least 4 x 4.9 x 5.8 cm. There was associated ureterovesical junction obstruction and moderate left hydronephrosis. There was associated adenopathy including a left inferior pelvic lymph node measuring 1 x 1.5 cm, a left para-aortic lymph node measuring 1.4 cm, a common iliac lymph node measuring 1.1 cm, and bilateral external iliac lymph nodes measuring up to 2.1 x 4.2 cm on the right and 1 x 1.7 cm on the left. She was referred to Dr. Ybarra in [place]. On 06/04/2019 she underwent exam under anesthesia with cervical biopsy, cystoscopy with biopsy, and rigid proctoscopy to 15 cm. Her tumor appeared to be fixed to the left pelvic sidewall and there was noted to be right-sided parametrial disease. On the cystoscopy the tumor did appear to be involving the bladder. The cervical biopsy and the bladder biopsy both showed poorly differentiated squamous cell carcinoma. She was recommended to undergo chemoradiation. She began radiation concurrently with weekly cisplatin chemotherapy on 07/15/2019. She experienced no acute toxicity with her initial infusion of cisplatin. She was then able to continue her treatment weekly, completing her 6th infusion of cisplatin on 09/02/2019. She completed radiation on 09/03/2019 to a total dose of 5940 cGy. During her treatment she did require some growth factor support with Neupogen. She also required IV hydration on multiple occasions for nausea and poor oral intake. I had seen her for a follow-up visit on 09/18/2019. At that point she was really doing quite poorly, as she had gotten very weak and she was having significant anorexia/nausea, so that her oral intake was very poor. She was significantly pancytopenic with hemoglobin 6.4 g, white blood cell count 2000, and platelet count 66,000. She was transfused and she was given further IV hydration and supportive care measures. During subsequent follow-up there was further decline in the granulocyte count, nadiring at approximately 1000. She then began to show gradual improvement in her clinical status. However, during that time she had been to the radiation oncologist in [place] on 2 occasions, and on both she was declined for her brachytherapy. She eventually opted against treatment. On 12/21/2019 she was admitted to the hospital with complaints of chest pain in association with eating and rectal pain/bleeding. She had evidence of oral pharyngeal candidiasis and there was associated dehydration and acute renal injury. She also was significantly hyperglycemic. She had symptomatic improvement with IV hydration and IV fluconazole. Also was improvement in her renal function. She remained moderately anemic, but above transfusion threshold. The rectal bleeding was thought to be most likely due to anal fissure, and that improved with conservative management. Following discharge from the hospital, she did start Levemir 20 units daily at bedtime along with regular insulin per sliding scale. She began tapering off dexamethasone. She was then seen Dr. Keita with pain in the left lower quadrant of her abdomen. Her CT abdomen/pelvis on 02/11/2020 showed wall thickening of the sigmoid colon with associated inflammatory change and fluid. There were diverticula noted, and it was felt that the appearance was most consistent with sigmoid colon diverticulitis. There was no evidence of recurrent or metastatic neoplasm. She began on empiric antibiotic coverage with ciprofloxacin and metronidazole. Despite that, her symptoms worsened. On 02/14/2020 she was admitted to the hospital with abdominal abscess in association with bowel perforation. She was given antibiotic coverage with ceftazidime, vancomycin, and metronidazole. She was significantly anemic, requiring PRBC transfusion. She was found to have positive stool FOB, and she was taken off apixaban. She improved clinically. On 02/20/2020 she was discharged home to continue outpatient antibiotic coverage with ertapenem 1 g IV daily. She restarted apixaban with the dosage reduced to 2.5 mg twice daily. I had seen her for a follow-up visit on 03/04/2020. At that point she was still on her antibiotic therapy, and she was showing clinical improvement. Her further clinical course was complicated by development of pain in her right lower back and right leg, which was clinically felt to be consistent with sciatica. She has had multiple ER visits for it this month. Her right hip x-ray on 04/04/2020 showed radiolucencies in the proximal femoral shaft with some endosteal scalloping and possibly involvement of the lateral cortex and medullary canal felt to be most consistent with metastatic disease versus myeloma versus osteomyelitis. Lumbar spine CT on 04/12/2020 showed degenerative changes but no evidence of metastatic disease. CT abdomen/pelvis on 04/21/2020 showed no evidence of residual or recurrent diverticular abscess. There was evidence of diffuse endometrial thickening which was felt to be suspicious for neoplasia, but the findings were similar to the previous study from March 2020. CT of the right femur on 04/22/2020 showed no evidence of metastatic lesions in the right proximal femur and no evidence of pathologic fracture. A small amount of endosteal scalloping of the right proximal femoral shaft was present on the prior PET/CT scans and the appearance was noted to be unchanged. This was felt to most likely be a benign finding. I had seen her for a follow-up visit on 04/24/2020. At that time she was still complaining of severe pain in the right leg. In the absence of any CT evidence of recurrence/progression of the cervical cancer, she continued symptomatic management. On 05/21/2020 she was admitted to the hospital after falling at home. There were no new findings on her repeat CT abdomen/pelvis. MRI of the lumbar spine showed mild disc bulging at multiple levels. A left foraminal disc protrusion at L3-L4 was noted to abut the L3 nerve root and there was also mild enlargement on the L4 nerve root in the subarticular recess. There was mild bilateral foraminal narrowing at L5-S1 with focal disc protrusion in the right lateral recess. There was no evidence of metastatic disease noted on that study. With those findings she was referred to pain management and she underwent an L4/5 interlaminar epidural steroid injection on 07/20/2020. I had seen her for a follow-up visit again on 08/04/2020. She reported no significant improvement in the pain following the epidural steroid injection. She was having neuropathy symptoms in both legs, at that point I had suspected that the pain was most likely due to neuropathy from the chemotherapy and/or radiation. She continued symptomatic management with immediate release oxycodone. Her other medical illnesses include hypertension, type 2 diabetes, and hypothyroidism. She also has chronic anxiety. She is a non-smoker. INTERIM HISTORY: Restaging CT scans of the chest, abdomen, and pelvis on 10/26/2020 showed an ill-defined lobulated endometrial mass, appearance of which was suspicious for malignancy. Also noted was an abnormal fluid collection in the endometrial cavity. There was no lymphadenopathy or other evidence of metastatic disease. She had further evaluation with PET/CT on 10/31/2020. It showed a new soft tissue lesion adjacent to the sigmoid bowel measuring 2.2 x 1.6 cm, SUV 15.4, with high probability of recurrence. A right obturator lymph node showed modest improvement measuring 1.2 cm with SUV 3.0. There were no other areas of abnormal uptake. She is seen for a follow-up visit. She says she has been feeling pretty good, though she still has very limited activity. She walks only a little bit. ECOG score is 3. She has good appetite. She does not have fever or night sweats. She continues to have pain in the lower back and both legs, right worse than left. It is being managed adequately with her medication. Lately she has had a little bit of chest congestion and cough. She does not complain of shortness of breath or chest pain. She occasionally has nausea. Her constipation had been managed pretty well with Movantik, but lately it has been getting a little worse. Bladder function remains adequate, though she does report that she sometimes has dribbling. She does not complain of headache or dizziness. She has numbness in both legs. Medications: Citalopram Hydrobromide 1 Tablet (of 40 mg) Oral daily, Dronabinol 1 Capsule (of 5 mg) Oral b.i.d. PRN, Duragesic-25 1 (25 mcg/hr) Patch 72 Hr Transdermal q 72 hours, Eliquis 1 Tablet (of 2.5 mg) Oral b.i.d., Gabapentin 1 Capsule (of 300 mg) Oral t.i.d., Lasix 1 Tablet (of 20 mg) Oral daily, Levemir 20 Units (of 100 Units/mL) Subcutaneous at bedtime, Levothyroxine Sodium 1 (150 mcg) Tablet Oral daily, Lisinopril 1 Tablet (of 20 mg) Oral daily, LORazepam 1 Tablet (of 1 mg) Oral t.i.d. PRN, Naloxegol Oxalate 1 Tablet (of 25 mg) Oral daily, Naloxone HCl 1 [place](s) (of 4 mg/0.1mL) Liquid Nasal PRN, oxyCODONE HCl 1 (15 mg) Tablet Oral four times a day PRN, Pantoprazole Sodium 1 Tablet (of 40 mg) Tablet, enteric coated Oral b.i.d., Potassium Chloride ER 1 Tablet (of 20 meq) Tablet, controlled release Oral daily, Rosuvastatin Calcium 1 Tablet (of 40 mg) Oral at bedtime, traZODone HCl 1 Tablet (of 50 mg) Oral at bedtime Allergies: Penicillins Vital Signs: Performed on November 05, 2020 12:13 Height - 66.00 in Weight - 191 lbs (HIGH) BSA - 1.96 sq.m BMI - 30.83 (HIGH) Temperature - 97.5 F (LOW) Pulse - 81 /min Respiration - 18 /min BP - 111/63 mm(hg) O2 Sat - 96 % Pain - 0 Fatigue - 5 Physical Examination: Constitutional - She appears generally weak, Eyes - Sclerae nonicteric. Conjunctivae clear, ENMT - No lesions noted in the oral cavity, Hematologic/Lymphatic - No cervical, clavicular, or axillary adenopathy, Respiratory - Lungs sound clear, Cardiovascular - Heart rhythm is regular. There is a II/ systolic murmur. There is no gallop or rub noted, Abdomen - Soft. Liver and spleen are not enlarged. There is no abdominal mass or ascites noted. There is no inguinal adenopathy, Extremities - No edema, Neurologic - Lower extremity weakness bilaterally. Lab/Imaging: Test performed on Oct 12, 2020 13:56 Sodium 142 mmol/L Potassium 4.1 mmol/L Chloride 106 mmol/L CO2 26 mmol/L Anion Gap 14.1 BUN 20 mg/dL Creatinine 0.7 mg/dL Cr Clearance (Est) 87.81 mL/min Glucose 175 mg/dL Osmolality - Calculated 301 mOsm/kg Calcium 8.9 mg/dL Protein, Total 5.8 g/dL Albumin 3.7 g/dL Globulin 2.1 g/dL Bilirubin, Total 0.8 mg/dL ALT (SGPT) 137 U/L AST (SGOT) 62 U/L Alkaline Phosphatase 84 IU/L ESR (Sed Rate) 26 mm/hr WBC 5.7 10 3/uL RBC 3.59 10 6/uL HGB 11.2 g/dL HCT 35.4 % MCV 98.6 fL MCH 31.2 pg MCHC 31.6 g/dL RDW 13.7 % Platelet Count 135 10 3/cmm MPV 9.2 fL Neutrophils 4.69 10 3/uL Lymphocytes 0.6 10 3/uL Monocytes 0.4 10 3/uL Eosinophils 0.0 10 3/uL Basophils 0.0 10 3/uL Neutrophil % 82.1 % Lymphocyte % 11.0 % Monocyte % 6.1 % Eosinophil % 0.2 % Basophils % 0.2 % NRBC % 0 % Problem List: 1. Poorly differentiated squamous cell carcinoma of the cervix, stage EVARISTO (T4, N1, M0), with biopsy proven involvement in the bladder and with CT evidence of pelvic and left periaortic lymphadenopathy. On 06/04/2019 she underwent exam under anesthesia with cervical biopsy, cystoscopy with biopsy of the bladder, and rigid proctoscopy to 15 cm. 2. Hypertension. 3. Type 2 diabetes. 4. Hypothyroidism. 5. Chronic anxiety. 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 She began radiation concurrently with weekly cisplatin chemotherapy on 07/15/2019. She had some nausea and fatigue with the initial chemotherapy treatment, but she was able to tolerate it with acceptable toxicity, and she continued her treatment weekly, completing her 6th infusion of cisplatin on 09/02/2019. She completed radiation on 09/03/2019 to a total dose of 5940 cGy. Her further clinical course was complicated by hospitalization for hyperglycemia, dehydration, and acute renal injury and by development of rectal fissure. She then developed persistent, neuropathic pain in the right leg, and during follow-up she has had very poor performance status. However, she did have a very good response to the chemoradiation by CT scan. As of May [address] scans had shown no evidence of recurrence/progression of the cervical cancer, and she continued observation/expectant management. Her restaging CT scans of the chest, abdomen, and pelvis from 10/26/2020 showed an ill-defined lobulated endometrial mass, appearance of which was suspicious for malignancy. Her restaging PET/CT on 10/31/2020 showed a new area of FDG uptake in the soft tissue adjacent to the sigmoid bowel thought to have high probability of representing recurrence. As the findings on these studies do not appear to correlate, the clinical significance remains uncertain, particularly in view of the fact that she also required treatment for rectal fissure and abdominal abscess. As such, I am going to review the scans with the radiologist before deciding on any further management. 2. She has persistent pain. It had initially started in the lower back and right leg and it was thought to be sciatica. However, during followup it had progressively worsened to involve both legs and she has developed associated lower extremity weakness. 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 She continues symptomatic management. Signed By: Gato Downey M.D. <<Signature on File>>
== END 2020-11-30 23:59 | disposition home or self-care (01) ==
LOC: ONCMED 06:08
PROVIDERS: Visit Provider Internal Medicine Medical Oncology
DX: C53.9 Malignant neoplasm of cervix uteri, unspecified (principal); C77.8 Secondary and unspecified malignant neoplasm of lymph nodes of multiple regions; I10 Essential (primary) hypertension; E11.9 Type 2 diabetes mellitus without complications; E03.9 Hypothyroidism, unspecified; F41.9 Anxiety disorder, unspecified; G62.0 Drug-induced polyneuropathy; T45.1X5A Adverse effect of antineoplastic and immunosuppressive drugs, initial encounter; Z79.899 Other long term (current) drug therapy; Z92.3 Personal history of irradiation; Z92.21 Personal history of antineoplastic chemotherapy
CPT/HCPCS: 99214

== ENCOUNTER 2021-01-20 13:42 | Outpatient (CLI) | payer MEDICARE, MEDICAID, SELFPAY ==
[2021-01-20 15:01] LABS: Basophils % 0.3 %; Eosinophils # 0.1 10^3/uL (0.0-0.8); Eosinophils % 2.2 %; Hematocrit 31.7 % (37.0-47.0); Hemoglobin 10.2 g/dL (11.5-15.3); Lymphocytes # 1.4 10^3/uL (0.8-4.8); Mean Corpuscular HGB Conc 32.2 g/dL (30.0-36.0); Mean Corpuscular Hemoglobin 30.1 pg (28.0-34.0); Mean Corpuscular Volume 93.5 fL (81-99); Mean Platelet Volume 9.9 fL (7.4-10.4); Monocytes # 0.3 10^3/uL (0.2-0.9); Monocytes % 9.3 %; Neutrophils # 1.75 10^3/uL (1.8-7.7); Neutrophils % 49.2 %; Nucleated Red Blood Cells % 0 %; Platelet Count 159 10^3/cmm (130-400); Red Blood Count 3.39 10^6/uL (4.1-5.3); White Blood Count 3.6 10^3/uL (4.0-10.0)
[2021-01-20 15:55] LABS: Alanine Aminotransferase 12 U/L (0-33); Albumin Level 3.8 g/dL (3.5-5.2); Alkaline Phosphatase 122 IU/L (35-105); Aspartate Amino Transferase 15 U/L (0-32); Blood Urea Nitrogen 12 mg/dL (8-23); Calcium 9.6 mg/dL (8.5-10.5); Carbon Dioxide 25 mmol/L (22-29); Chloride 103 mmol/L (98-107); Globulin 2.6 g/dL (1.3-4.6); Glucose 135 mg/dL (65-115); Osmolality Calculated 288 mOsm/kg (285-295); Sodium 138 mmol/L (136-145); Total Bilirubin 0.8 mg/dL (0.15-1.2); Total Protein 6.4 g/dL (6.6-8.7)
--- NOTE | 2021-01-24 16:22 | ONC FU_ITS ---
Dr. Downey Patient Follow-Up Note Patient: Sharon Sotelo Unit #: [id number]: 1945 Dicatated By: Gato Downey M.D.Date of Visit:Jan 20, 2021 Onc Med Follow-up/Prog Note Chief Complaint: Cervical cancer. 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 On 05/03/2019 she had presented to the emergency room with pain in the left lower quadrant/left flank area and difficulty voiding. Her CT abdomen/pelvis showed a soft tissue mass which was involving the left superior lateral aspect of the urinary bladder and was contiguous with the cervix. It measured at least 4 x 4.9 x 5.8 cm. There was associated ureterovesical junction obstruction and moderate left hydronephrosis. There was associated adenopathy including a left inferior pelvic lymph node measuring 1 x 1.5 cm, a left para-aortic lymph node measuring 1.4 cm, a common iliac lymph node measuring 1.1 cm, and bilateral external iliac lymph nodes measuring up to 2.1 x 4.2 cm on the right and 1 x 1.7 cm on the left. She was referred to Dr. Ybarra in [place]. On 06/04/2019 she underwent exam under anesthesia with cervical biopsy, cystoscopy with biopsy, and rigid proctoscopy to 15 cm. Her tumor appeared to be fixed to the left pelvic sidewall and there was noted to be right-sided parametrial disease. On the cystoscopy the tumor did appear to be involving the bladder. The cervical biopsy and the bladder biopsy both showed poorly differentiated squamous cell carcinoma. She was recommended to undergo chemoradiation. She began radiation concurrently with weekly cisplatin chemotherapy on 07/15/2019. She experienced no acute toxicity with her initial infusion of cisplatin. She was then able to continue her treatment weekly, completing her 6th infusion of cisplatin on 09/02/2019. She completed radiation on 09/03/2019 to a total dose of 5940 cGy. During her treatment she did require some growth factor support with Neupogen. She also required IV hydration on multiple occasions for nausea and poor oral intake. I had seen her for a follow-up visit on 09/18/2019. At that point she was really doing quite poorly, as she had gotten very weak and she was having significant anorexia/nausea, so that her oral intake was very poor. She was significantly pancytopenic with hemoglobin 6.4 g, white blood cell count 2000, and platelet count 66,000. She was transfused and she was given further IV hydration and supportive care measures. During subsequent follow-up there was further decline in the granulocyte count, nadiring at approximately 1000. She then began to show gradual improvement in her clinical status. However, during that time she had been to the radiation oncologist in [place] on 2 occasions, and on both she was declined for her brachytherapy. She eventually opted against treatment. On 12/21/2019 she was admitted to the hospital with complaints of chest pain in association with eating and rectal pain/bleeding. She had evidence of oral pharyngeal candidiasis and there was associated dehydration and acute renal injury. She also was significantly hyperglycemic. She had symptomatic improvement with IV hydration and IV fluconazole. Also was improvement in her renal function. She remained moderately anemic, but above transfusion threshold. The rectal bleeding was thought to be most likely due to anal fissure, and that improved with conservative management. Following discharge from the hospital, she did start Levemir 20 units daily at bedtime along with regular insulin per sliding scale. She began tapering off dexamethasone. She was then seen Dr. Keita with pain in the left lower quadrant of her abdomen. Her CT abdomen/pelvis on 02/11/2020 showed wall thickening of the sigmoid colon with associated inflammatory change and fluid. There were diverticula noted, and it was felt that the appearance was most consistent with sigmoid colon diverticulitis. There was no evidence of recurrent or metastatic neoplasm. She began on empiric antibiotic coverage with ciprofloxacin and metronidazole. Despite that, her symptoms worsened. On 02/14/2020 she was admitted to the hospital with abdominal abscess in association with bowel perforation. She was given antibiotic coverage with ceftazidime, vancomycin, and metronidazole. She was significantly anemic, requiring PRBC transfusion. She was found to have positive stool FOB, and she was taken off apixaban. She improved clinically. On 02/20/2020 she was discharged home to continue outpatient antibiotic coverage with ertapenem 1 g IV daily. She restarted apixaban with the dosage reduced to 2.5 mg twice daily. I had seen her for a follow-up visit on 03/04/2020. At that point she was still on her antibiotic therapy, and she was showing clinical improvement. Her further clinical course was complicated by development of pain in her right lower back and right leg, which was clinically felt to be consistent with sciatica. She has had multiple ER visits for it this month. Her right hip x-ray on 04/04/2020 showed radiolucencies in the proximal femoral shaft with some endosteal scalloping and possibly involvement of the lateral cortex and medullary canal felt to be most consistent with metastatic disease versus myeloma versus osteomyelitis. Lumbar spine CT on 04/12/2020 showed degenerative changes but no evidence of metastatic disease. CT abdomen/pelvis on 04/21/2020 showed no evidence of residual or recurrent diverticular abscess. There was evidence of diffuse endometrial thickening which was felt to be suspicious for neoplasia, but the findings were similar to the previous study from March 2020. CT of the right femur on 04/22/2020 showed no evidence of metastatic lesions in the right proximal femur and no evidence of pathologic fracture. A small amount of endosteal scalloping of the right proximal femoral shaft was present on the prior PET/CT scans and the appearance was noted to be unchanged. This was felt to most likely be a benign finding. I had seen her for a follow-up visit on 04/24/2020. At that time she was still complaining of severe pain in the right leg. In the absence of any CT evidence of recurrence/progression of the cervical cancer, she continued symptomatic management. On 05/21/2020 she was admitted to the hospital after falling at home. There were no new findings on her repeat CT abdomen/pelvis. MRI of the lumbar spine showed mild disc bulging at multiple levels. A left foraminal disc protrusion at L3-L4 was noted to abut the L3 nerve root and there was also mild enlargement on the L4 nerve root in the subarticular recess. There was mild bilateral foraminal narrowing at L5-S1 with focal disc protrusion in the right lateral recess. There was no evidence of metastatic disease noted on that study. With those findings she was referred to pain management and she underwent an L4/5 interlaminar epidural steroid injection on 07/20/2020. I had seen her for a follow-up visit again on 08/04/2020. She reported no significant improvement in the pain following the epidural steroid injection. She was having neuropathy symptoms in both legs, at that point I had suspected that the pain was most likely due to neuropathy from the chemotherapy and/or radiation. She continued symptomatic management with immediate release oxycodone. She had neurology consultation with Dr. Doan on 09/28/2020. 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 Her other medical illnesses include hypertension, type 2 diabetes, and hypothyroidism. She also has chronic anxiety. She is a non-smoker. INTERIM HISTORY: Restaging CT scans of the chest, abdomen, and pelvis on 10/26/2020 showed an ill-defined lobulated endometrial mass, appearance of which was suspicious for malignancy. Also noted was an abnormal fluid collection in the endometrial cavity. There was no lymphadenopathy or other evidence of metastatic disease. She had further evaluation with PET/CT on 10/31/2020. It showed a new soft tissue lesion adjacent to the sigmoid bowel measuring 2.2 x 1.6 cm, SUV 15.4, with high probability of recurrence. A right obturator lymph node showed modest improvement measuring 1.2 cm with SUV 3.0. There were no other areas of abnormal uptake. She is seen for a follow-up visit. She continues to complain that both legs feel awful. She says they feel like a plug of wood. She can walk a few steps with a walker. She is otherwise sedentary. ECOG score is 3. She has good appetite. She has no fever or night sweats. She has no shortness of breath, cough, or chest pain. She has had some nausea. She has constipation, but is managed adequately with medication. She does have some urinary frequency and urgency and she has some associated incontinence. She has pain and limited movement of both shoulders. She says it feels like a muscle pain. She continues to have pain in both legs but she also has no feeling in them. Medications: Citalopram Hydrobromide 1 Tablet (of 40 mg) Oral daily, Dronabinol 1 Capsule (of 5 mg) Oral b.i.d. PRN, Duragesic-25 1 (25 mcg/hr) Patch 72 Hr Transdermal q 72 hours, Eliquis 1 Tablet (of 2.5 mg) Oral b.i.d., Gabapentin 1 Capsule (of 300 mg) Oral t.i.d., Lasix 1 Tablet (of 20 mg) Oral daily, Levemir 20 Units (of 100 Units/mL) Subcutaneous at bedtime, Levothyroxine Sodium 1 (150 mcg) Tablet Oral daily, Lisinopril 1 Tablet (of 20 mg) Oral daily, LORazepam 1 Tablet (of 1 mg) Oral t.i.d. PRN, Naloxegol Oxalate 1 Tablet (of 25 mg) Oral daily, Naloxone HCl 1 [place](s) (of 4 mg/0.1mL) Liquid Nasal PRN, oxyCODONE HCl 1 (15 mg) Tablet Oral four times a day PRN, Pantoprazole Sodium 1 Tablet (of 40 mg) Tablet, enteric coated Oral b.i.d., Potassium Chloride ER 1 Tablet (of 20 meq) Tablet, controlled release Oral daily, Rosuvastatin Calcium 1 Tablet (of 40 mg) Oral at bedtime, traZODone HCl 1 Tablet (of 50 mg) Oral at bedtime Allergies: Penicillins Vital Signs: Performed on Jan 20, 2021 15:34 Height - 66.00 in Weight - 185 lbs (LOW) BSA - 1.93 sq.m BMI - 29.86 Temperature - 97.6 F (LOW) Pulse - 76 /min Respiration - 18 /min BP - 135/74 mm(hg) O2 Sat - 99 % Pain - 6 Fatigue - 0 Physical Examination: Constitutional - She appears generally weak, Eyes - Sclerae nonicteric. Conjunctivae clear, ENMT - No lesions noted in the oral cavity, Hematologic/Lymphatic - No cervical, clavicular, or axillary adenopathy, Respiratory - Lungs sound clear, Cardiovascular - Heart rhythm is regular. There is a II/ systolic murmur. There is no gallop or rub noted, Abdomen - Soft. Liver and spleen are not enlarged. There is no abdominal mass or ascites noted. There is no inguinal adenopathy, Extremities - Slight edema. She has good dorsalis pedis pulses bilaterally, Neurologic - There is significant weakness in both legs. Lab/Imaging: Test performed on Jan 20, 2021 14:03 Sodium 138 mmol/L Potassium 4.0 mmol/L Chloride 103 mmol/L CO2 25 mmol/L Anion Gap 14.0 BUN 12 mg/dL Creatinine 1.1 mg/dL Cr Clearance (Est) 58.5400 mL/min Glucose 135 mg/dL Osmolality - Calculated 288 mOsm/kg Calcium 9.6 mg/dL Protein, Total 6.4 g/dL Albumin 3.8 g/dL Globulin 2.6 g/dL Bilirubin, Total 0.8 mg/dL ALT (SGPT) 12 U/L AST (SGOT) 15 U/L Alkaline Phosphatase 122 IU/L WBC 3.6 10 3/uL RBC 3.39 10 6/uL HGB 10.2 g/dL HCT 31.7 % MCV 93.5 fL MCH 30.1 pg MCHC 32.2 g/dL RDW 12.0 % Platelet Count 159 10 3/cmm MPV 9.9 fL Neutrophils 1.75 10 3/uL Lymphocytes 1.4 10 3/uL Monocytes 0.3 10 3/uL Eosinophils 0.1 10 3/uL Basophils 0.0 10 3/uL Neutrophil % 49.2 % Lymphocyte % 39.0 % Monocyte % 9.3 % Eosinophil % 2.2 % Basophils % 0.3 % NRBC % 0 % Problem List: 1. Poorly differentiated squamous cell carcinoma of the cervix, stage EVARISTO (T4, N1, M0), with biopsy proven involvement in the bladder and with CT evidence of pelvic and left periaortic lymphadenopathy. On 06/04/2019 she underwent exam under anesthesia with cervical biopsy, cystoscopy with biopsy of the bladder, and rigid proctoscopy to 15 cm. 2. Hypertension. 3. Type 2 diabetes. 4. Hypothyroidism. 5. Chronic anxiety. Problems Addressed with this Encounter and Plan: 1. 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 She began radiation concurrently with weekly cisplatin chemotherapy on 07/15/2019. She had some nausea and fatigue with the initial chemotherapy treatment, but she was able to tolerate it with acceptable toxicity, and she continued her treatment weekly, completing her 6th infusion of cisplatin on 09/02/2019. She completed radiation on 09/03/2019 to a total dose of 5940 cGy. Her further clinical course was complicated by hospitalization for hyperglycemia, dehydration, and acute renal injury and by development of rectal fissure. She then developed persistent, neuropathic pain in the right leg, and during follow-up she has had very poor performance status. However, she did have a very good response to the chemoradiation by CT scan. As of May [address] scans had shown no evidence of recurrence/progression of the cervical cancer, and she continued observation/expectant management. Her restaging CT scans of the chest, abdomen, and pelvis from 10/26/2020 showed an ill-defined lobulated endometrial mass, appearance of which was suspicious for malignancy. Her restaging PET/CT on 10/31/2020 showed a new area of FDG uptake in the soft tissue adjacent to the sigmoid bowel thought to have high probability of representing recurrence. As the findings on these studies do not appear to correlate, the clinical significance remains uncertain. At least for now she remains on expectant management. She will be scheduled for a follow-up visit with restaging CT scans in 1 month. 2. 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 It is being managed symptomatically. Signed By: Gato Downey M.D. <<Signature on File>>
== END 2021-01-20 13:43 | disposition home or self-care (01) ==
LOC: ONCMED 13:45
PROVIDERS: PCP Family Medicine; Visit Provider Internal Medicine Medical Oncology
DX: Z08 Encounter for follow-up examination after completed treatment for malignant neoplasm (principal); Z85.41 Personal history of malignant neoplasm of cervix uteri; I10 Essential (primary) hypertension; E11.9 Type 2 diabetes mellitus without complications; E03.9 Hypothyroidism, unspecified; F41.9 Anxiety disorder, unspecified; Z79.899 Other long term (current) drug therapy; Z92.21 Personal history of antineoplastic chemotherapy; Z92.3 Personal history of irradiation
CPT/HCPCS: 36415; 80053; 85025; 99214

== ENCOUNTER 2021-03-22 08:53 | Outpatient (CLI) | payer MEDICARE, MEDICAID, SELFPAY ==
--- NOTE | 2021-03-22 09:02 | CT_ITS ---
WS: [id number] CT ABDOMEN AND PELVIS WITH CONTRAST HISTORY: MALIGNANT NEOPLASM OF Cervix, uteri, UNSPECIFIED TECHNIQUE: Imaging performed of the abdomen and pelvis with IV contrast. Single phase imaging of the abdomen. Coronal and sagittal reformats are submitted. All CT scans at [facility] use at [address] one of these dose optimization techniques: automated exposure control; mA and/or kV adjustment per patient size (includes targeted exams where dose is matched to clinical indication); or iterative re construction. IV CONTRAST: Omnipaque 300; 95 mL IV. Oral contrast: Yes. DLP: 1167.42 mGycm COMPARISON: PET/CT 10/31/2020, prior CT 10/26/2020 and 05/21/2020. Lower thorax: Lung bases are clear. Mild enlargement of the heart, predominantly the LEFT atrium. No effusion. No hiatal hernia. Liver/biliary system: Normal size with no intrahepatic dilatation. Normal portal vein. Gallbladder: Moderately dilated gallbladder without adjacent inflammation. Numerous stones within the lumen. Pancreas: Normal size pancreas and pancreatic duct. No adjacent inflammation. Spleen: Normal size spleen with several granulomata. Adrenal glands: Normal. Right kidney: Normal. Left kidney: Mild atrophy of the LEFT kidney. Very mild perinephric stranding was present also on the prior study. No obstruction or soft tissue mass. Aorta: Mild atherosclerosis with no aneurysm. Lymphadenopathy: Several small lymph nodes through the caro hepatis and celiac axis. There is a new nodule lateral to the ascending colon measuring 1.3 cm. Free fluid: None. GI tract: Mild diffuse constipation. There are numerous diverticula in the sigmoid colon. As seen on the prior examination there is an inflammatory process centered in the LEFT lower quadrant associated with the sigmoid colon and the round ligament. This collection is still evident today and contains a ir. 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 There is less fluid present in this collection. T here is still air present. This area of acute diverticulitis involves the round ligament and there is thickening of the LEFT round ligament. Abdominal wall: Unremarkable abdominal wall. No hernia. Pelvis: No free fluid within the pelvis. Urinary bladder is moderately well distended. Uterus is pres ent with fluid distention along the endometrium and asymmetry. Endometrial asymmetry slightly improve d since 10/26/2020. Bones: L5 anterolisthesis by 12 mm with bilateral pars defects of L5. No osteoblastic or osteolytic b one disease. CT/CT abdomen pelvis w con* [id number] IMPRESSION: 1. Single RIGHT abdomen mesenteric nodule, just lateral to the ascending colon measures 1.3 cm. Metastatic deposit should be considered. The previously seen lymph nodes at the celiac axis have not significantly changed. 2. Inflammatory collection in the LEFT lower quadrant previously described by CT and PET/CT imaging is most likely a resolving area of acute diverticulitis. 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 This abscess appears improved since 021. 3. Continued but moderately improved heterogeneous appearance of the endometri um. Cannot exclude recurrent malignancy. 4. Thickening along the LEFT round ligament is likely associated with the sigm oid diverticulosis. 5. Cholelithiasis without acute cholecystitis.
[2021-03-22] MEDS: iohexol 300 mg/mL 50 mL Btl PO (09:24)
[2021-03-22 09:43] LABS: Blood Urea Nitrogen 13 mg/dL (8-23)
== END 2021-03-22 08:54 | disposition home or self-care (01) ==
PROVIDERS: PCP Family Medicine; Visit Provider Internal Medicine Medical Oncology
DX: C53.9 Malignant neoplasm of cervix uteri, unspecified (principal); K80.20 Calculus of gallbladder without cholecystitis without obstruction
CPT/HCPCS: 74177; 82565; 84520; Q9967

== ENCOUNTER 2021-03-25 12:11 | Outpatient (CLI) | payer MEDICARE, MEDICAID, SELFPAY ==
[2021-03-25 14:25] LABS: Basophils % 0.2 %; Eosinophils # 0.1 10^3/uL (0.0-0.8); Eosinophils % 1.9 %; Hematocrit 34.8 % (37.0-47.0); Hemoglobin 11.4 g/dL (11.5-15.3); Lymphocytes # 1.3 10^3/uL (0.8-4.8); Lymphocytes % 31.3 %; Mean Corpuscular HGB Conc 32.8 g/dL (30.0-36.0); Mean Corpuscular Hemoglobin 29.9 pg (28.0-34.0); Mean Corpuscular Volume 91.3 fl (81-99); Mean Platelet Volume 9.5 fL (7.4-10.4); Monocytes # 0.4 10^3/uL (0.2-0.9); Monocytes % 9.6 %; Neutrophils # 2.42 10^3/uL (1.8-7.7); Nucleated Red Blood Cells % 0 %; Platelet Count 173 10^3/cmm (130-400); Red Blood Count 3.81 10^6/uL (4.1-5.3); Red Cell Distribution Width 12.7 % (12.1-15.1); White Blood Count 4.3 10^3/uL (4.0-10.0)
[2021-03-25 14:54] LABS: Alanine Aminotransferase 11 U/L (0-33); Albumin Level 4.1 g/dL (3.5-5.2); Alkaline Phosphatase 129 IU/L (35-105); Anion Gap 17.3 (5-19); Aspartate Amino Transferase 16 U/L (0-32); Blood Urea Nitrogen 14 mg/dL (8-23); Calcium 9.7 mg/dL (8.5-10.5); Carbon Dioxide 25 mmol/L (22-29); Chloride 99 mmol/L (98-107); Glucose 95 mg/dL (65-115); Osmolality Calculated 284 mOsm/kg (285-295); Potassium 4.3 mmol/L (3.5-5.1); Sodium 137 mmol/L (136-145); Total Bilirubin 0.9 mg/dL (0.15-1.2); Total Protein 7.1 g/dL (6.6-8.7)
--- NOTE | 2021-03-28 13:25 | ONC FU_ITS ---
Dr. Downey Patient Follow-Up Note Patient: Sharon Sotelo Unit #: [id number]: 1945 Dicatated By: Gato Downey M.D.Date of Visit:Mar 25, 2021 Onc Med Follow-up/Prog Note Chief Complaint: Cervical cancer. 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 On 05/03/2019 she had presented to the emergency room with pain in the left lower quadrant/left flank area and difficulty voiding. Her CT abdomen/pelvis showed a soft tissue mass which was involving the left superior lateral aspect of the urinary bladder and was contiguous with the cervix. It measured at least 4 x 4.9 x 5.8 cm. There was associated ureterovesical junction obstruction and moderate left hydronephrosis. There was associated adenopathy including a left inferior pelvic lymph node measuring 1 x 1.5 cm, a left para-aortic lymph node measuring 1.4 cm, a common iliac lymph node measuring 1.1 cm, and bilateral external iliac lymph nodes measuring up to 2.1 x 4.2 cm on the right and 1 x 1.7 cm on the left. She was referred to Dr. Ybarra in [place]. On 06/04/2019 she underwent exam under anesthesia with cervical biopsy, cystoscopy with biopsy, and rigid proctoscopy to 15 cm. Her tumor appeared to be fixed to the left pelvic sidewall and there was noted to be right-sided parametrial disease. On the cystoscopy the tumor did appear to be involving the bladder. The cervical biopsy and the bladder biopsy both showed poorly differentiated squamous cell carcinoma. She was recommended to undergo chemoradiation. She began radiation concurrently with weekly cisplatin chemotherapy on 07/15/2019. She experienced no acute toxicity with her initial infusion of cisplatin. She was then able to continue her treatment weekly, completing her 6th infusion of cisplatin on 09/02/2019. She completed radiation on 09/03/2019 to a total dose of 5940 cGy. During her treatment she did require some growth factor support with Neupogen. She also required IV hydration on multiple occasions for nausea and poor oral intake. I had seen her for a follow-up visit on 09/18/2019. At that point she was really doing quite poorly, as she had gotten very weak and she was having significant anorexia/nausea, so that her oral intake was very poor. She was significantly pancytopenic with hemoglobin 6.4 g, white blood cell count 2000, and platelet count 66,000. She was transfused and she was given further IV hydration and supportive care measures. During subsequent follow-up there was further decline in the granulocyte count, nadiring at approximately 1000. She then began to show gradual improvement in her clinical status. However, during that time she had been to the radiation oncologist in [place] on 2 occasions, and on both she was declined for her brachytherapy. She eventually opted against treatment. On 12/21/2019 she was admitted to the hospital with complaints of chest pain in association with eating and rectal pain/bleeding. She had evidence of oral pharyngeal candidiasis and there was associated dehydration and acute renal injury. She also was significantly hyperglycemic. She had symptomatic improvement with IV hydration and IV fluconazole. Also was improvement in her renal function. She remained moderately anemic, but above transfusion threshold. The rectal bleeding was thought to be most likely due to anal fissure, and that improved with conservative management. Following discharge from the hospital, she did start Levemir 20 units daily at bedtime along with regular insulin per sliding scale. She began tapering off dexamethasone. She was then seen Dr. Keita with pain in the left lower quadrant of her abdomen. Her CT abdomen/pelvis on 02/11/2020 showed wall thickening of the sigmoid colon with associated inflammatory change and fluid. There were diverticula noted, and it was felt that the appearance was most consistent with sigmoid colon diverticulitis. There was no evidence of recurrent or metastatic neoplasm. She began on empiric antibiotic coverage with ciprofloxacin and metronidazole. Despite that, her symptoms worsened. On 02/14/2020 she was admitted to the hospital with abdominal abscess in association with bowel perforation. She was given antibiotic coverage with ceftazidime, vancomycin, and metronidazole. She was significantly anemic, requiring PRBC transfusion. She was found to have positive stool FOB, and she was taken off apixaban. She improved clinically. On 02/20/2020 she was discharged home to continue outpatient antibiotic coverage with ertapenem 1 g IV daily. She restarted apixaban with the dosage reduced to 2.5 mg twice daily. I had seen her for a follow-up visit on 03/04/2020. At that point she was still on her antibiotic therapy, and she was showing clinical improvement. Her further clinical course was complicated by development of pain in her right lower back and right leg, which was clinically felt to be consistent with sciatica. She has had multiple ER visits for it this month. Her right hip x-ray on 04/04/2020 showed radiolucencies in the proximal femoral shaft with some endosteal scalloping and possibly involvement of the lateral cortex and medullary canal felt to be most consistent with metastatic disease versus myeloma versus osteomyelitis. Lumbar spine CT on 04/12/2020 showed degenerative changes but no evidence of metastatic disease. CT abdomen/pelvis on 04/21/2020 showed no evidence of residual or recurrent diverticular abscess. There was evidence of diffuse endometrial thickening which was felt to be suspicious for neoplasia, but the findings were similar to the previous study from March 2020. CT of the right femur on 04/22/2020 showed no evidence of metastatic lesions in the right proximal femur and no evidence of pathologic fracture. A small amount of endosteal scalloping of the right proximal femoral shaft was present on the prior PET/CT scans and the appearance was noted to be unchanged. This was felt to most likely be a benign finding. I had seen her for a follow-up visit on 04/24/2020. At that time she was still complaining of severe pain in the right leg. In the absence of any CT evidence of recurrence/progression of the cervical cancer, she continued symptomatic management. On 05/21/2020 she was admitted to the hospital after falling at home. There were no new findings on her repeat CT abdomen/pelvis. MRI of the lumbar spine showed mild disc bulging at multiple levels. A left foraminal disc protrusion at L3-L4 was noted to abut the L3 nerve root and there was also mild enlargement on the L4 nerve root in the subarticular recess. There was mild bilateral foraminal narrowing at L5-S1 with focal disc protrusion in the right lateral recess. There was no evidence of metastatic disease noted on that study. With those findings she was referred to pain management and she underwent an L4/5 interlaminar epidural steroid injection on 07/20/2020. I had seen her for a follow-up visit again on 08/04/2020. She reported no significant improvement in the pain following the epidural steroid injection. She was having neuropathy symptoms in both legs, at that point I had suspected that the pain was most likely due to neuropathy from the chemotherapy and/or radiation. She continued symptomatic management with immediate release oxycodone. She had neurology consultation with Dr. Doan on 09/28/2020. 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 Her other medical illnesses include hypertension, type 2 diabetes, and hypothyroidism. She also has chronic anxiety. She is a non-smoker. INTERIM HISTORY: Restaging CT scans of the chest, abdomen, and pelvis on 10/26/2020 showed an ill-defined lobulated endometrial mass, appearance of which was suspicious for malignancy. Also noted was an abnormal fluid collection in the endometrial cavity. There was no lymphadenopathy or other evidence of metastatic disease. She had further evaluation with PET/CT on 10/31/2020. It showed a new soft tissue lesion adjacent to the sigmoid bowel measuring 2.2 x 1.6 cm, SUV 15.4, with high probability of recurrence. A right obturator lymph node showed modest improvement measuring 1.2 cm with SUV 3.0. There were no other areas of abnormal uptake. With those findings she continued expectant management. Restaging CT of the abdomen/pelvis on 03/22/2021 showed a single mesenteric nodule in the right abdomen just lateral to the ascending colon measuring 1.3 cm. It did appear to be suspicious for a metastatic deposit. There was no significant change in small lymph nodes through the caro hepatis and celiac axis. Inflammatory collection in the left lower quadrant appeared to be most likely a resolving area of acute diverticulitis. 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 Overall the abscess appeared improved compared to the October 2020 CT. There was continued heterogeneous appearance of the endometrium, but with moderate improvement. She is seen for a follow-up visit. She says she is feeling pretty good, though she continues to have very limited activity. She is able to take only a few steps. ECOG score is 3. She has good appetite. She has no fever or night sweats. She has a little bit of cough. She does not complain of shortness of breath or chest pain. She had some nausea following her recent CT scan. She has chronic constipation, but bowel function has been adequate with a laxative. She has some urgency with urination and associated incontinence. She has some pain in her shoulders, no other joint or bone pain. She does not complain of headache or dizziness. She has persistent numbness/tingling in her feet, and she has persistent lower extremity weakness. Medications: Citalopram Hydrobromide 1 Tablet (of 40 mg) Oral daily, Dronabinol 1 Capsule (of 5 mg) Oral b.i.d. PRN, Duragesic-25 1 (25 mcg/hr) Patch 72 Hr Transdermal q 72 hours, Eliquis 1 Tablet (of 2.5 mg) Oral b.i.d., Gabapentin 1 Capsule (of 300 mg) Oral t.i.d., Lasix 1 Tablet (of 20 mg) Oral daily, Levemir 20 Units (of 100 Units/mL) Subcutaneous at bedtime, Levothyroxine Sodium 1 (150 mcg) Tablet Oral daily, Lisinopril 1 Tablet (of 20 mg) Oral daily, LORazepam 1 Tablet (of 1 mg) Oral t.i.d. PRN, Naloxegol Oxalate 1 Tablet (of 25 mg) Oral daily, Naloxone HCl 1 [place](s) (of 4 mg/0.1mL) Liquid Nasal PRN, oxyCODONE HCl 1 (15 mg) Tablet Oral four times a day PRN, Pantoprazole Sodium 1 Tablet (of 40 mg) Tablet, enteric coated Oral b.i.d., Potassium Chloride ER 1 Tablet (of 20 meq) Tablet, controlled release Oral daily, Rosuvastatin Calcium 1 Tablet (of 40 mg) Oral at bedtime, traZODone HCl 1 Tablet (of 50 mg) Oral at bedtime Allergies: Penicillins Vital Signs: Performed on Mar 25, 2021 12:59 Height - 66.00 in Temperature - 97.7 F (LOW) Pulse - 81 /min Respiration - 18 /min BP - 99/60 mm(hg) O2 Sat - 96 % Pain - 0 Fatigue - 9 Physical Examination: Constitutional - She appears generally weak, Eyes - Sclerae nonicteric. Conjunctivae clear, ENMT - No lesions noted in the oral cavity, Hematologic/Lymphatic - No cervical, clavicular, or axillary adenopathy, Respiratory - Lungs sound clear, Cardiovascular - Heart rhythm is regular. There is a II/ systolic murmur. There is no gallop or rub noted, Abdomen - Soft. Liver and spleen are not enlarged. There is no abdominal mass or ascites noted. There is no inguinal adenopathy, Extremities - No edema. She has developed erythema in the medial aspect of the right great toe. It appears to be associated with an ingrown toenail, Neurologic - There is significant weakness in both legs. Lab/Imaging: Test performed on Mar 25, 2021 13:44 Sodium 137 mmol/L Potassium 4.3 mmol/L Chloride 99 mmol/L CO2 25 mmol/L Anion Gap 17.3 BUN 14 mg/dL Creatinine 1.1 mg/dL Cr Clearance (Est) 58.5400 mL/min Glucose 95 mg/dL Osmolality - Calculated 284 mOsm/kg Calcium 9.7 mg/dL Protein, Total 7.1 g/dL Albumin 4.1 g/dL Globulin 3.0 g/dL Bilirubin, Total 0.9 mg/dL ALT (SGPT) 11 U/L AST (SGOT) 16 U/L Alkaline Phosphatase 129 IU/L WBC 4.3 10 3/uL RBC 3.81 10 6/uL HGB 11.4 g/dL HCT 34.8 % MCV 91.3 fl MCH 29.9 pg MCHC 32.8 g/dL RDW 12.7 % Platelet Count 173 10 3/cmm MPV 9.5 fL Neutrophils 2.42 10 3/uL Lymphocytes 1.3 10 3/uL Monocytes 0.4 10 3/uL Eosinophils 0.1 10 3/uL Basophils 0.0 10 3/uL Neutrophil % 57.0 % Lymphocyte % 31.3 % Monocyte % 9.6 % Eosinophil % 1.9 % Basophils % 0.2 % NRBC % 0 % Problem List: 1. Poorly differentiated squamous cell carcinoma of the cervix, stage EVARISTO (T4, N1, M0), with biopsy proven involvement in the bladder and with CT evidence of pelvic and left periaortic lymphadenopathy. On 06/04/2019 she underwent exam under anesthesia with cervical biopsy, cystoscopy with biopsy of the bladder, and rigid proctoscopy to 15 cm. 2. Hypertension. 3. Type 2 diabetes. 4. Hypothyroidism. 5. Chronic anxiety. Problems Addressed with this Encounter and Plan: 1. 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 She began radiation concurrently with weekly cisplatin chemotherapy on 07/15/2019. She had some nausea and fatigue with the initial chemotherapy treatment, but she was able to tolerate it with acceptable toxicity, and she continued her treatment weekly, completing her 6th infusion of cisplatin on 09/02/2019. She completed radiation on 09/03/2019 to a total dose of 5940 cGy. Her further clinical course was complicated by hospitalization for hyperglycemia, dehydration, and acute renal injury and by development of rectal fissure. She then developed persistent, neuropathic pain in the right leg, and during follow-up she has had very poor performance status. However, she did have a very good response to the chemoradiation by CT scan. As of May [address] scans had shown no evidence of recurrence/progression of the cervical cancer, and she continued observation/expectant management. Her restaging CT scans of the chest, abdomen, and pelvis from 10/26/2020 showed an ill-defined lobulated endometrial mass, appearance of which was suspicious for malignancy. Her restaging PET/CT on 10/31/2020 showed a new area of FDG uptake in the soft tissue adjacent to the sigmoid bowel thought to have high probability of representing recurrence. As the findings on these studies did not appear to correlate, I opted to just continue with expectant management. Her restaging CT abdomen/pelvis on 03/22/2021 showed findings consistent with resolving area of acute diverticulitis in the left lower abdominal quadrant. 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 There was evidence for a new mesenteric nodule in the right abdomen just lateral to the ascending colon measuring 1.3 cm. The appearance was felt to be suspicious for a metastatic deposit. As her overall clinical status appears stable, she will continue on expectant management. She will be scheduled for a follow-up visit with repeat CT imaging in 3 months. 2. 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 It is being managed symptomatically. 3. She has developed erythema of the right great toe in association with an ingrown toenail. She will be given antibiotic coverage with Bactrim, and I also will arrange for referral to the housekeeping manager. Signed By: Gato Downey M.D. <<Signature on File>>
== END 2021-03-25 12:12 | disposition home or self-care (01) ==
LOC: ONCMED 12:15
PROVIDERS: PCP Family Medicine; Visit Provider Internal Medicine Medical Oncology
DX: C53.9 Malignant neoplasm of cervix uteri, unspecified (principal); I10 Essential (primary) hypertension; E11.9 Type 2 diabetes mellitus without complications; E03.9 Hypothyroidism, unspecified; F41.8 Other specified anxiety disorders; G58.8 Other specified mononeuropathies; L60.0 Ingrowing nail; Z79.899 Other long term (current) drug therapy
CPT/HCPCS: 36415; 80053; 85025; 99214

== ENCOUNTER 2021-04-23 13:17 | Emergency (ER) | payer MEDICARE, MEDICAID, SELFPAY ==
[2021-04-23 13:28] VITALS: BP 178/74; PULSE 65; RESP 18; TEMP 37.1; O2SAT 97; BMI 27.4
[2021-04-23 13:35] VITALS: BP 180/68; PULSE 63; RESP 16; TEMP 36.9; O2SAT 95
--- NOTE | 2021-04-23 14:02 | W.ED.GENADLT ---
HPI - General Adult General: Chief complaint: General Medical Stated complaint: High BP Time Seen by Provider: 04/23/21 13:34 History of Present Illness: HPI narrative: Patient is a 75-year-old female comes to the ED with Elevated BP. She was at an appointment just prior to arrival and they told her that her systolic blood pressure was over 200 and they sent her here to the ED to be evaluated. She denies any symptoms such as headache, chest pain, shortness of breath, nausea or vomiting. She does have superficial abrasion caused by her puppy scratching her on her right forearm. There is some redness surrounding the scratch along with some tenderness as well. Associated symptoms: Deny chest pain, dyspnea, headache(s), nausea, rash, palpitations or vomiting Review of Systems Const: Denies: fever(s), chills or fatigue Eyes: Denies: change in vision or eye discomfort ENMT: Denies: throat pain, odynophagia, nasal discharge or nasal congestion Card: Denies: chest pain, palpitations, edema, swelling of feet/ankles, dyspnea on exertion or orthopnea Resp: Denies: dyspnea, productive cough or non-productive cough GI: Denies: abdominal pain, nausea, vomiting, diarrhea, constipation or hematochezia : Denies: flank pain, dysuria or hematuria Musc: Denies: neck pain, back pain or extremity swelling Skin/Breast: Reports: new lesions (Superficial abrasion to right forearm); Denies: rash Neuro: Denies: headache(s), numbness in extremities or weakness in extremities [facility] ED PFSH: Medical History Acute encephalopathy Acute kidney injury Anxiety -anxiolytics PRN Cervical cancer, FIGO stage [facility]ARISTO Cholelithiasis Chronic anemia CKD (chronic kidney disease) stage 2, GFR 60-89 ml/min Dehydration Diabetes mellitus Diverticulitis of large intestine with perforation and abscess without bleeding Gastroesophageal reflux disease Hypertension Hypothyroidism Low back pain Morbid obesity -BMI-34 kg/m2 Oropharyngeal candidiasis -apparent oral lesions on examination; ongoing odynophagia, dysphagia; symptoms resolved -opportunistic infection in immunocompromised patient -loaded with fluconazole 400 mg x 1, now on 200 mg once daily; due to improvement will switch to PO, plan to treat x 7 days -off IVF hydration; improved oral intake -tolerating GI soft diet -nystatin swish and swallow, magic mouthwash -pain control as needed -appreciate ST evaluation; cleared for regular diet/liquids Rectal fissure -on exam with some intermittent bleeding; no more so far -continue to monitor H/H; drop likely dilutional Surgical History H/O pelvic surgery Cervical biopsy, cystoscopy with biopsy, rigid proctoscopy to 15 cm ([place]) Family History Mother CAD (coronary artery disease) Father Aneurysm brain Sister Cancer breast cancer Family/Other Cancer breast cancer in niece Social History Smoking and tobacco status: never smoked Second hand smoke exposure: No Alcohol intake: never Household members: children Housing: House History of recent travel: No Female Reproductive History: Para: 2 Physical Exam Const: COMMON NORMALS: no acute distress, patient oriented x3 and alert GENERAL APPEARANCE: cooperative and comfortable HENMT: COMMON NORMALS: normocephalic HEAD & SCALP: normocephalic MOUTH: Normal oral and palatal mucosa present THROAT: posterior oropharynx normal and uvula midline Neck/C-Spine: COMMON NORMALS: supple GENERAL: Yes normal visual inspection Resp: COMMON NORMALS: normal respiratory effort, No retractions, No use of accessory muscles and clear to auscultation bilaterally AUSCULTATION: clear to auscultation bilaterally Cardio: COMMON NORMALS: regular rate, regular rhythm, S1 normal heart sound present, S2 normal heart sound present, No gallops present (Cardio), No clicks present (Cardio), No murmurs present (Cardio) and Peripheral pulses 2+ throughout RATE: regular rate RHYTHM: regular rhythm HEART SOUNDS: S1 normal heart sound present and S2 normal heart sound present PERIPHERAL PULSES: Peripheral pulses 2+ throughout GI: COMMON NORMALS: Normal to inspection, nondistended, normoactive bowel sounds present, Soft to palpation, non-tender and no masses PALPATION: Yes Soft to palpation : COMMON NORMALS: Yes no CVA tenderness BLADDER/KIDNEY EXAM: Yes no CVA tenderness Back/Pelvis: COMMON NORMALS: no CVA tenderness Extremity: NARRATIVE EXTREMITY EXAM: Right forearm?2 superficial abrasions noted with some surrounding erythema, warmth and tenderness. Findings suggestive of possible cellulitis developing. GENERAL: Yes normal exam except as noted Neuro: COMMON NORMALS: patient oriented x3 and moves all extremities SENSORIUM/ORIENTATION: Yes alert Skin: NARRATIVE SKIN EXAM: Right forearm?2 superficial abrasions noted with some surrounding erythema, warmth and tenderness. Findings suggestive of possible cellulitis developing. GENERAL SKIN EXAM: dry skin Course ED course: Patient's blood pressure was 178/74, 180/68 while here in the ED. She continues to be asymptomatic. Vital Signs: Vital signs: Vital Signs Temperature 98.5 F 04/23/21 14:13 Pulse Rate 64 04/23/21 14:13 Respiratory Rate 16 04/23/21 14:13 Blood Pressure 174/69 04/23/21 14:13 Pulse Oximetry 95 04/23/21 14:13 MDM - General Adult MDM Narrative: Medical decision making narrative: Patient is a 75-year-old female who was sent to the ED by provider due to elevated blood pressure. Patient's blood pressures here in the ED were 178/74 and 174/69. Patient is asymptomatic and states her only complaint is 2 superficial scratches on her right forearm that she received from her puppy. There is some erythema, tenderness and warmth around the superficial abrasions on her right forearm suggestive of some cellulitis developing. Rest of patient's exam is benign. Vitals are stable. Patient was given an updated tetanus shot while here in the ED. Patient diagnosed with cellulitis of right forearm scratch. She was discharged home with a prescription for cephalexin. Return to ED precautions given. Follow-up with PCP in 7 to 10 days reevaluation. Patient understood and agreed with plan. Discharge Plan Discharge Patient Disposition: Home Clinical Impression: Cellulitis of right forearm, Dog scratch Condition: Stable Prescriptions: New cephalexin 500 mg capsule 500 mg PO Q6H 7 Days Qty: 28 RF: 0 No Action naloxone 4 mg/actuation spray,non-aerosol 4 mg INTRANASAL Q3M PRN (Reason: opioid overdose) Qty: 2 RF: 0 sulfamethoxazole-trimethoprim 400-80 mg tablet 1 tab PO BID RF: 0 oxycodone-acetaminophen 5-325 mg tablet 1 tab PO Q4H PRN (Reason: Moderate Pain) RF: 0 Levemir FlexTouch U-100 Insuln 100 unit/mL (3 mL) Insulin Pen 20 unit SUBCUT BEDTIME RF: 0 pantoprazole 20 mg tablet,delayed release (DR/EC) 40 mg PO BID PRN (Reason: stomach acid/heartburn) Qty: 0 RF: 0 lisinopril 20 mg tablet 20 mg PO DAILY Qty: 30 RF: 0 citalopram 40 mg tablet 40 mg PO DAILY RF: 0 levothyroxine 150 mcg tablet 150 mcg PO 0600 RF: 0 lorazepam 1 mg tablet 0.5 mg PO TID PRN (Reason: Nausea) RF: 0 rosuvastatin [Crestor] 40 mg tablet 40 mg PO BEDTIME RF: 0 trazodone 50 mg tablet 100 mg PO BEDTIME RF: 0 potassium chloride 10 mEq tablet extended release 20 meq PO DAILY RF: 0 dronabinol 5 mg capsule 5 mg PO TID PRN (Reason: nausea and vomiting) Qty: 14 RF: 0 furosemide [Lasix] 20 mg Tablet 20 mg PO DAILY RF: 0 Hold Instructions: Resume on 05/27/20. gabapentin 100 mg capsule 300 mg PO TID RF: 0 Discharge Orders: Discharge ED (Routine); Ordered 04/23/21 Ordered By: George Patel Referrals: Chapin Keita MD [Primary Care Provider] - Discharge Diet: Regular Discharge Activity: Resume usual activity Patient Instructions: Cellulitis (ED) Activity Restrictions/Additional Instructions: Follow-up with medical provider as directed in 7 to 10 days reevaluation. Take medications as prescribed. Return to the ER or your medical provider if condition worsens. Please read and understand discharge instructions. Thank you for choosing [facility] for your healthcare needs today. Please realize this is an emergency room and that we are providing you with a medical screening exam and this may not be complete and all inclusive of all the testing and or work up that you may need to determine your ailment or severity of your illness. It is very important that you follow up as instructed or that you return to the Emergency Department should you have concerns or if your condition changes or worsens in any way. Coding Level of Care Code ED [employer] Apprentice for Asha Alanis Exam Comprehensive
[2021-04-23 14:13] VITALS: BP 174/69; PULSE 64; RESP 16; TEMP 36.9; O2SAT 95
[2021-04-23] MEDS: tetanus-dipt-pertussis 0.5 mL SDV IM (14:19)
== END 2021-04-23 14:23 | disposition home or self-care (01) ==
PROVIDERS: Emergency Provider Physician Assistant; PCP Family Medicine
DX: L03.113 Cellulitis of right upper limb (principal); S50.811A Abrasion of right forearm, initial encounter; W54.8XXA Other contact with dog, initial encounter; Z79.4 Long term (current) use of insulin; Z85.41 Personal history of malignant neoplasm of cervix uteri; E11.22 Type 2 diabetes mellitus with diabetic chronic kidney disease; I12.9 Hypertensive chronic kidney disease with stage 1 through stage 4 chronic kidney disease, or unspecified chronic kidney disease; N18.2 Chronic kidney disease, stage 2 (mild); Z23 Encounter for immunization
CPT/HCPCS: 90471; 90715; 99281

== ENCOUNTER 2021-06-10 09:01 | Outpatient (CLI) | payer MEDICARE, MEDICAID, SELFPAY ==
--- NOTE | 2021-06-10 09:15 | CT_ITS ---
WS: [id number] CT ABDOMEN PELVIS TECHNIQUE: Contrast-enhanced CT of the abdomen and pelvis with coronal and sagittal reformatted image s. CLINICAL INFORMATION: MALIGNANT NEOPLASM OF CERVIX UTERI, UNSPECIFIED COMPARISON: March 22, 2021 DLP: [id number] scans at [facility] use at least one of these dose optimization techniques: automated e xposure control; mA and/or kV adjustment per patient size (includes targeted exams where dose is matc hed to clinical indication); or iterative reconstruction. FINDINGS: Again seen is the mesenteric nodule just lateral to the ascending colon which is increased in size to day. Today this measures approximately 2.0 x 1.9 cm compared to 1.0 x 1.3 cm previous. Stable slightly prominent lymph nodes along the caro hepatis and celiac axis. Fatty atrophy of the p ancreas. No periaortic or pelvic lymphadenopathy. No inguinal lymphadenopathy. Stable sigmoid diverti culosis with colocutaneous fistula adjacent to the round ligament in the left lower quadrant. This is unchanged in appearance. Urine distended bladder. Heterogeneous thickened endometrium is unchanged.M ild inflammatory stranding left lower quadrant along the sigmoid colon suspicious for mild acute dive rticulitis. Diffuse fatty infiltration of the liver. Cholelithiasis. Normal GE junction. Adrenal glands are jay l. Normal renal parenchymal enhancement. No hydronephrosis. Grade 1-2 anterolisthesis L5 on S1 with bilateral pars defects. CT/CT abdomen pelvis w con* [id number] IMPRESSION: 1. Increase in size of the mesenteric implant in the right abdomen lateral to the ascending colon. Today this measures 2.0 x 2.0 CM suspicious for metastatic disease. 2. Stable prominent lymph nodes in the upper abdomen along the caor hepatis a nd celiac axis unchanged. 3. No other evidence of progressed metastatic disease. 4. Diffuse heterogeneous enhancement of the uterus with thickened endometrium is similar in appearance to previous. Recommend further evaluation with ultraso und to assess for recurrent neoplasm 5. Mild inflammatory stranding left lower quadrant along the sigmoid colon gonzalo picious for mild acute diverticulitis. 6. Stable sigmoid diverticulosis with colocutaneous fistula in the left lower quadrant and extending along the round ligament. 7. No periaortic or pelvic lymphadenopathy. No inguinal lymphadenopathy. 8. Stable grade 1-2 anterolisthesis L5 on S1 with bilateral pars defects.
[2021-06-10] MEDS: iohexol 300 mg/mL 50 mL Btl PO (15:16)
[2021-06-10] MEDS: iodixanol 320 mg/mL 100mL Btl IV (15:16)
== END 2021-06-10 09:02 | disposition home or self-care (01) ==
PROVIDERS: PCP Family Medicine; Visit Provider Internal Medicine Medical Oncology
DX: C53.9 Malignant neoplasm of cervix uteri, unspecified (principal); K57.30 Diverticulosis of large intestine without perforation or abscess without bleeding
CPT/HCPCS: 74177; Q9967

== ENCOUNTER 2021-06-23 15:06 | Outpatient (CLI) | payer MEDICARE, MEDICAID, SELFPAY ==
[2021-06-23 15:48] LABS: Basophils % 0.3 %; Eosinophils # 0.1 10^3/uL (0.0-0.8); Eosinophils % 1.8 %; Hematocrit 34.7 % (37.0-47.0); Hemoglobin 11.1 g/dL (11.5-15.3); Lymphocytes # 0.8 10^3/uL (0.8-4.8); Lymphocytes % 21.9 %; Mean Corpuscular Hemoglobin 29.2 pg (28.0-34.0); Mean Corpuscular Volume 91.3 fl (81-99); Mean Platelet Volume 9.4 fL (7.4-10.4); Monocytes # 0.3 10^3/uL (0.2-0.9); Monocytes % 8.9 %; Neutrophils # 2.57 10^3/uL (1.8-7.7); Neutrophils % 66.8 %; Nucleated Red Blood Cells % 0 %; Platelet Count 142 10^3/cmm (130-400); Red Cell Distribution Width 12.9 % (12.1-15.1); White Blood Count 3.8 10^3/uL (4.0-10.0)
[2021-06-23 15:50] LABS: Estmated Average Glucose 114; Hemoglobin A1C 5.6 % (4.0-6.0)
[2021-06-23 16:01] LABS: Alanine Aminotransferase 10 U/L (0-33); Albumin Level 4.2 g/dL (3.5-5.2); Alkaline Phosphatase 130 IU/L (35-105); Anion Gap 17.8 (5-19); Aspartate Amino Transferase 14 U/L (0-32); Blood Urea Nitrogen 11 mg/dL (8-23); Calcium 9.3 mg/dL (8.5-10.5); Carbon Dioxide 24 mmol/L (22-29); Chloride 99 mmol/L (98-107); Glucose 111 mg/dL (65-115); Osmolality Calculated 284 mOsm/kg (285-295); Potassium 3.8 mmol/L (3.5-5.1); Sodium 137 mmol/L (136-145); Total Bilirubin 1.2 mg/dL (0.15-1.2); Total Protein 7.2 g/dL (6.6-8.7)
--- NOTE | 2021-06-25 13:24 | ONC FU_ITS ---
Dr. Downey Patient Follow-Up Note Patient: Sharon Sotelo Unit #: [id number]: 1945 Dicatated By: Gato Downey M.D.Date of Visit:Jun 23, 2021 Onc Med Follow-up/Prog Note Chief Complaint: Cervical cancer. 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 On 05/03/2019 she had presented to the emergency room with pain in the left lower quadrant/left flank area and difficulty voiding. Her CT abdomen/pelvis showed a soft tissue mass which was involving the left superior lateral aspect of the urinary bladder and was contiguous with the cervix. It measured at least 4 x 4.9 x 5.8 cm. There was associated ureterovesical junction obstruction and moderate left hydronephrosis. There was associated adenopathy including a left inferior pelvic lymph node measuring 1 x 1.5 cm, a left para-aortic lymph node measuring 1.4 cm, a common iliac lymph node measuring 1.1 cm, and bilateral external iliac lymph nodes measuring up to 2.1 x 4.2 cm on the right and 1 x 1.7 cm on the left. She was referred to Dr. Ybarra in [place]. On 06/04/2019 she underwent exam under anesthesia with cervical biopsy, cystoscopy with biopsy, and rigid proctoscopy to 15 cm. Her tumor appeared to be fixed to the left pelvic sidewall and there was noted to be right-sided parametrial disease. On the cystoscopy the tumor did appear to be involving the bladder. The cervical biopsy and the bladder biopsy both showed poorly differentiated squamous cell carcinoma. She was recommended to undergo chemoradiation. She began radiation concurrently with weekly cisplatin chemotherapy on 07/15/2019. She experienced no acute toxicity with her initial infusion of cisplatin. She was then able to continue her treatment weekly, completing her 6th infusion of cisplatin on 09/02/2019. She completed radiation on 09/03/2019 to a total dose of 5940 cGy. During her treatment she did require some growth factor support with Neupogen. She also required IV hydration on multiple occasions for nausea and poor oral intake. I had seen her for a follow-up visit on 09/18/2019. At that point she was really doing quite poorly, as she had gotten very weak and she was having significant anorexia/nausea, so that her oral intake was very poor. She was significantly pancytopenic with hemoglobin 6.4 g, white blood cell count 2000, and platelet count 66,000. She was transfused and she was given further IV hydration and supportive care measures. During subsequent follow-up there was further decline in the granulocyte count, nadiring at approximately 1000. She then began to show gradual improvement in her clinical status. However, during that time she had been to the radiation oncologist in [place] on 2 occasions, and on both she was declined for her brachytherapy. She eventually opted against treatment. On 12/21/2019 she was admitted to the hospital with complaints of chest pain in association with eating and rectal pain/bleeding. She had evidence of oral pharyngeal candidiasis and there was associated dehydration and acute renal injury. She also was significantly hyperglycemic. She had symptomatic improvement with IV hydration and IV fluconazole. Also was improvement in her renal function. She remained moderately anemic, but above transfusion threshold. The rectal bleeding was thought to be most likely due to anal fissure, and that improved with conservative management. Following discharge from the hospital, she did start Levemir 20 units daily at bedtime along with regular insulin per sliding scale. She began tapering off dexamethasone. She was then seen Dr. Keita with pain in the left lower quadrant of her abdomen. Her CT abdomen/pelvis on 02/11/2020 showed wall thickening of the sigmoid colon with associated inflammatory change and fluid. There were diverticula noted, and it was felt that the appearance was most consistent with sigmoid colon diverticulitis. There was no evidence of recurrent or metastatic neoplasm. She began on empiric antibiotic coverage with ciprofloxacin and metronidazole. Despite that, her symptoms worsened. On 02/14/2020 she was admitted to the hospital with abdominal abscess in association with bowel perforation. She was given antibiotic coverage with ceftazidime, vancomycin, and metronidazole. She was significantly anemic, requiring PRBC transfusion. She was found to have positive stool FOB, and she was taken off apixaban. She improved clinically. On 02/20/2020 she was discharged home to continue outpatient antibiotic coverage with ertapenem 1 g IV daily. She restarted apixaban with the dosage reduced to 2.5 mg twice daily. I had seen her for a follow-up visit on 03/04/2020. At that point she was still on her antibiotic therapy, and she was showing clinical improvement. Her further clinical course was complicated by development of pain in her right lower back and right leg, which was clinically felt to be consistent with sciatica. She has had multiple ER visits for it this month. Her right hip x-ray on 04/04/2020 showed radiolucencies in the proximal femoral shaft with some endosteal scalloping and possibly involvement of the lateral cortex and medullary canal felt to be most consistent with metastatic disease versus myeloma versus osteomyelitis. Lumbar spine CT on 04/12/2020 showed degenerative changes but no evidence of metastatic disease. CT abdomen/pelvis on 04/21/2020 showed no evidence of residual or recurrent diverticular abscess. There was evidence of diffuse endometrial thickening which was felt to be suspicious for neoplasia, but the findings were similar to the previous study from March 2020. CT of the right femur on 04/22/2020 showed no evidence of metastatic lesions in the right proximal femur and no evidence of pathologic fracture. A small amount of endosteal scalloping of the right proximal femoral shaft was present on the prior PET/CT scans and the appearance was noted to be unchanged. This was felt to most likely be a benign finding. I had seen her for a follow-up visit on 04/24/2020. At that time she was still complaining of severe pain in the right leg. In the absence of any CT evidence of recurrence/progression of the cervical cancer, she continued symptomatic management. On 05/21/2020 she was admitted to the hospital after falling at home. There were no new findings on her repeat CT abdomen/pelvis. MRI of the lumbar spine showed mild disc bulging at multiple levels. A left foraminal disc protrusion at L3-L4 was noted to abut the L3 nerve root and there was also mild enlargement on the L4 nerve root in the subarticular recess. There was mild bilateral foraminal narrowing at L5-S1 with focal disc protrusion in the right lateral recess. There was no evidence of metastatic disease noted on that study. With those findings she was referred to pain management and she underwent an L4/5 interlaminar epidural steroid injection on 07/20/2020. I had seen her for a follow-up visit again on 08/04/2020. She reported no significant improvement in the pain following the epidural steroid injection. She was having neuropathy symptoms in both legs, at that point I had suspected that the pain was most likely due to neuropathy from the chemotherapy and/or radiation. She continued symptomatic management with immediate release oxycodone. She had neurology consultation with Dr. Doan on 09/28/2020. 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 Her other medical illnesses include hypertension, type 2 diabetes, and hypothyroidism. She also has chronic anxiety. She is a non-smoker. INTERIM HISTORY: Restaging CT scans of the chest, abdomen, and pelvis on 10/26/2020 showed an ill-defined lobulated endometrial mass, appearance of which was suspicious for malignancy. Also noted was an abnormal fluid collection in the endometrial cavity. There was no lymphadenopathy or other evidence of metastatic disease. She had further evaluation with PET/CT on 10/31/2020. It showed a new soft tissue lesion adjacent to the sigmoid bowel measuring 2.2 x 1.6 cm, SUV 15.4, with high probability of recurrence. A right obturator lymph node showed modest improvement measuring 1.2 cm with SUV 3.0. There were no other areas of abnormal uptake. With those findings she continued expectant management. Restaging CT of the abdomen/pelvis on 03/22/2021 showed a single mesenteric nodule in the right abdomen just lateral to the ascending colon measuring 1.3 cm. It did appear to be suspicious for a metastatic deposit. There was no significant change in small lymph nodes through the caro hepatis and celiac axis. Inflammatory collection in the left lower quadrant appeared to be most likely a resolving area of acute diverticulitis. 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 Overall the abscess appeared improved compared to the October 2020 CT. There was continued heterogeneous appearance of the endometrium, but with moderate improvement. Her CT abdomen/pelvis on 06/10/2021 showed a slight increase in the mesenteric nodule just lateral to the ascending colon measuring 2.0 x 1.9 cm compared to 1.0 x 1.3 cm on the March 2021 study. Slightly prominent lymph nodes along the caro hepatis and celiac axis appeared stable. There was no periaortic or pelvic lymphadenopathy and there was no inguinal lymphadenopathy. The appearance of the sigmoid diverticulosis with colocutaneous fistula adjacent to the round ligament in the left lower quadrant appeared unchanged. Heterogeneous thickened endometrium also appeared unchanged. Inflammatory stranding in the left lower quadrant along the sigmoid colon was felt to be suspicious for mild acute diverticulitis. There were no other interval changes. She is seen for a follow-up visit. She continues to have very limited activity. Her ECOG score is 3. Her appetite has not been good, as she has tended to be very picky with her eating. She has not had fever or night sweats. Her main complaint today is that recently she has been having in her left arm from her shoulder down to her thumb. She has some pain in the right arm as well, and she complains that the muscles are weak in both arms and hands. She describes having difficulty holding onto a coffee cup. She continues to have significant weakness in her legs. She is able to ambulate with a walker, but only short distances. She says her legs do not hurt real bad at this point. She has not had sore mouth or throat. She has a little bit of cough. She does not complain of shortness of breath or chest pain. She has had some nausea the last few days. She has no other GI complaints. She continues to have urgency with urination and some bladder incontinence. She does not complain of neck or back pain, and she has not been having headache. She does have numbness in her feet. Medications: Citalopram Hydrobromide 1 Tablet (of 40 mg) Oral daily, Dronabinol 1 Capsule (of 5 mg) Oral b.i.d. PRN, Duragesic-25 1 (25 mcg/hr) Patch 72 Hr Transdermal q 72 hours, Eliquis 1 Tablet (of 2.5 mg) Oral b.i.d., Gabapentin 1 Capsule (of 300 mg) Oral t.i.d., Lasix 1 Tablet (of 20 mg) Oral daily, Levemir 20 Units (of 100 Units/mL) Subcutaneous at bedtime, Levothyroxine Sodium 1 (150 mcg) Tablet Oral daily, Lisinopril 1 Tablet (of 20 mg) Oral daily, LORazepam 1 Tablet (of 1 mg) Oral t.i.d. PRN, Naloxegol Oxalate 1 Tablet (of 25 mg) Oral daily, Naloxone HCl 1 Reading(s) (of 4 mg/0.1mL) Liquid Nasal PRN, oxyCODONE HCl 1 (15 mg) Tablet Oral four times a day PRN, Pantoprazole Sodium 1 Tablet (of 40 mg) Tablet, enteric coated Oral b.i.d., Potassium Chloride ER 1 Tablet (of 20 meq) Tablet, controlled release Oral daily, Rosuvastatin Calcium 1 Tablet (of 40 mg) Oral at bedtime, traZODone HCl 1 Tablet (of 50 mg) Oral at bedtime Allergies: Penicillins Vital Signs: Performed on Jun 23, 2021 16:15 Height - 66.00 in BSA - 0.00 sq.m BMI - 0.00 Temperature - 99.1 F (HIGH) Pulse - 83 /min Respiration - 16 /min BP - 132/79 mm(hg) O2 Sat - 93 % (LOW) Pain - 10 Fatigue - 6 Physical Examination: Constitutional - She appears generally weak, Eyes - Sclerae nonicteric. Conjunctivae clear, ENMT - No lesions noted in the oral cavity, Hematologic/Lymphatic - No cervical, clavicular, or axillary adenopathy, Respiratory - Lungs sound clear, Cardiovascular - Heart rhythm is regular. There is a II/ systolic murmur. There is no gallop or rub noted, Abdomen - Soft. Liver and spleen are not enlarged. There is no abdominal mass or ascites noted. There is no inguinal adenopathy, Extremities - No edema. There is limited range of motion of both shoulder joints, worse on the left, Neurologic - There is significant weakness in both legs. Lab/Imaging: Test performed on Jun 23, 2021 15:20 Sodium 137 mmol/L Potassium 3.8 mmol/L Chloride 99 mmol/L Est Avg Glucose (eAG) 114 mg/dL CO2 24 mmol/L Anion Gap 17.8 BUN 11 mg/dL Creatinine 0.9 mg/dL Cr Clearance (Est) 70.4500 mL/min Glucose 111 mg/dL Osmolality - Calculated 284 mOsm/kg Calcium 9.3 mg/dL Protein, Total 7.2 g/dL Albumin 4.2 g/dL Globulin 3.0 g/dL Bilirubin, Total 1.2 mg/dL ALT (SGPT) 10 U/L AST (SGOT) 14 U/L Alkaline Phosphatase 130 IU/L Hemoglobin A1C % 5.6 % WBC 3.8 10 3/uL RBC 3.80 10 6/uL HGB 11.1 g/dL HCT 34.7 % MCV 91.3 fl MCH 29.2 pg MCHC 32.0 g/dL RDW 12.9 % Platelet Count 142 10 3/cmm MPV 9.4 fL Neutrophils 2.57 10 3/uL Lymphocytes 0.8 10 3/uL Monocytes 0.3 10 3/uL Eosinophils 0.1 10 3/uL Basophils 0.0 10 3/uL Neutrophil % 66.8 % Lymphocyte % 21.9 % Monocyte % 8.9 % Eosinophil % 1.8 % Basophils % 0.3 % NRBC % 0 % Problem List: 1. Poorly differentiated squamous cell carcinoma of the cervix, stage EVARISTO (T4, N1, M0), with biopsy proven involvement in the bladder and with CT evidence of pelvic and left periaortic lymphadenopathy. On 06/04/2019 she underwent exam under anesthesia with cervical biopsy, cystoscopy with biopsy of the bladder, and rigid proctoscopy to 15 cm. 2. Hypertension. 3. Type 2 diabetes. 4. Hypothyroidism. 5. Chronic anxiety. Problems Addressed with this Encounter and Plan: 1. 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 She began radiation concurrently with weekly cisplatin chemotherapy on 07/15/2019. She had some nausea and fatigue with the initial chemotherapy treatment, but she was able to tolerate it with acceptable toxicity, and she continued her treatment weekly, completing her 6th infusion of cisplatin on 09/02/2019. She completed radiation on 09/03/2019 to a total dose of 5940 cGy. Her further clinical course was complicated by hospitalization for hyperglycemia, dehydration, and acute renal injury and by development of rectal fissure. She then developed persistent, neuropathic pain in the right leg, and during follow-up she has had very poor performance status. However, she did have a very good response to the chemoradiation by CT scan. As of May [address] scans had shown no evidence of recurrence/progression of the cervical cancer, and she continued observation/expectant management. Her restaging CT scans of the chest, abdomen, and pelvis from 10/26/2020 showed an ill-defined lobulated endometrial mass, appearance of which was suspicious for malignancy. Her restaging PET/CT on 10/31/2020 showed a new area of FDG uptake in the soft tissue adjacent to the sigmoid bowel thought to have high probability of representing recurrence. As the findings on these studies did not appear to correlate, I opted to just continue with expectant management. Her restaging CT abdomen/pelvis on 03/22/2021 showed findings consistent with resolving area of acute diverticulitis in the left lower abdominal quadrant. 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 There was evidence for a new mesenteric nodule in the right abdomen just lateral to the ascending colon measuring 1.3 cm. The appearance was felt to be suspicious for a metastatic deposit. That nodule has shown further enlargement on her current CT scan. There are no other areas of obvious disease progression, but with that finding she will be scheduled for repeat PET/CT. She will have further evaluation as indicated. 2. 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 It has been managed symptomatically. She now reports having pain in both arms, the left arm worse than the right. She has limited range of motion of both shoulders, so this may just be a shoulder joint issue. However, she also is describing some muscle weakness, and there is also possibility that she is having progression of neuropathy. She does not have neck or back pain to suggest malignant involvement in the spine/spinal cord. She will have further evaluation, though, depending on the PET/CT results. Signed By: Gato Downey M.D. <<Signature on File>>
== END 2021-06-23 15:07 | disposition home or self-care (01) ==
LOC: ONCMED 15:13
PROVIDERS: PCP Family Medicine; Visit Provider Internal Medicine Medical Oncology
DX: Z08 Encounter for follow-up examination after completed treatment for malignant neoplasm (principal); Z85.41 Personal history of malignant neoplasm of cervix uteri; I10 Essential (primary) hypertension; E11.9 Type 2 diabetes mellitus without complications; E03.9 Hypothyroidism, unspecified; F41.9 Anxiety disorder, unspecified; Z92.21 Personal history of antineoplastic chemotherapy; Z92.3 Personal history of irradiation
CPT/HCPCS: 36415; 80053; 83036; 85025; 99214

== ENCOUNTER 2021-06-27 15:07 | Emergency (ER) | payer MEDICARE, MEDICAID, SELFPAY ==
[2021-06-27 15:17] VITALS: BP 179/89; PULSE 77; RESP 16; TEMP 37.2; O2SAT 94; BMI 29.9
--- NOTE | 2021-06-27 16:49 | XRR_ITS ---
PROCEDURE INFORMATION: Exam: XR Chest Exam date and time: 06/27/2021 4:49 PM Age: 76 years old Clinical indication: Dyspnea TECHNIQUE: Imaging protocol: XR of the chest. Views: 1 view. Total images: 1 COMPARISON: CT chest abd pel w con* 10/26/2020 10:38 AM FINDINGS: Lungs: Bilateral pneumonitis/pneumonia, left lung more involved than right. Pleural spaces: No pleural effusion. No pneumothorax. Heart/Mediastinum: Cardiac structures and configuration within normal limits for age. Mild arteriosclerosis. Bones/joints: Unremarkable as visualized for age. XR/XR chest 1V portable [id number] IMPRESSION: Bilateral pneumonitis/pneumonia, left lung more involved than right.
[2021-06-27 17:09] LABS: Specific Gravity, Urine 1.005 (1.005-1.030); Urine Appearance Clear (CLEAR); Urine Color Straw (Yellow); pH Urine 6 (5-7)
[2021-06-27 17:10] LABS: Add Urine Microscopic? YES; Bacteria Urine TRACE /hpf; Bilirubin Urine Neg (Negative); Blood Urine 2+ (Negative); Glucose Urine UA Norm (Normal); Ketones Urine Negative (Negative); Leukocyte Esterase Urine Negative (Negative); Nitrate Urine Negative (Negative); Protein Urine Neg (Negative); RBC Urine 0-4 /hpf (0-2); Urobilinogen Urine Norm (Negative); WBC Urine RARE /hpf (0-5)
--- NOTE | 2021-06-27 17:34 | ED_ITS ---
Documented by User: Lakeisha Polanco MD 06/27/21 17:55 HPI - General Adult General: Chief complaint: Nausea/Vomiting/Diarrhea Stated complaint: weakness and sickness Time Seen by Provider: 06/27/21 16:35 History of Present Illness: HPI narrative: 76-year-old female with history of CKD, HTN, CHF, diabetes, cervical cancer not currently on chemotherapy presents emergency room for evaluation of generalized fatigue, cough, shortness of breath x2 days. Patient tells me that she also has nausea and nonspecific abdominal pain. Patient states symptoms started about 2 days ago. Denies any fever, hemoptysis, nasal congestion, diarrhea, melena hematochezia. Patient has no urinary complaints. Onset: 2 days ago Duration:2 days Location:home Severity:moderate Review of Systems Narrative: Constitutional: No fever, +chills. +genrealized weakness HEENT: No vision changes CV: No chest pain, no palpitations PULM: +cough, +dyspnea. GI: +nonspecific abdominal pain, no N/V/D. : No dysuria MSKEL: No muscle pain SKIN: No new rashes, no lesions. NEURO: No headache, no focal weakness. HEME: No visible bruises PSYCH: Normal mood PFSH ED PFSH: Medical History Acute encephalopathy Acute kidney injury Anxiety -anxiolytics PRN Cervical cancer, FIGO stage EVARISTO Cholelithiasis Chronic anemia CKD (chronic kidney disease) stage 2, GFR 60-89 ml/min Dehydration Diabetes mellitus Diverticulitis of large intestine with perforation and abscess without bleeding Gastroesophageal reflux disease Hypertension Hypothyroidism Low back pain Morbid obesity -BMI-34 kg/m2 Oropharyngeal candidiasis -apparent oral lesions on examination; ongoing odynophagia, dysphagia; symptoms resolved -opportunistic infection in immunocompromised patient -loaded with fluconazole 400 mg x 1, now on 200 mg once daily; due to improvement will switch to PO, plan to treat x 7 days -off IVF hydration; improved oral intake -tolerating GI soft diet -nystatin swish and swallow, magic mouthwash -pain control as needed -appreciate ST evaluation; cleared for regular diet/liquids Rectal fissure -on exam with some intermittent bleeding; no more so far -continue to monitor H/H; drop likely dilutional Surgical History H/O pelvic surgery Cervical biopsy, cystoscopy with biopsy, rigid proctoscopy to 15 cm ([facility]) Family History Mother CAD (coronary artery disease) Father Aneurysm brain Sister Cancer breast cancer Family/Other Cancer breast cancer in niece Social History Smoking and tobacco status: never smoked Second hand smoke exposure: No Alcohol intake: never Household members: children Housing: House History of recent travel: No Female Reproductive History: Para: 2 Physical Exam Narrative: EXAM NARRATIVE: Head: Atraumatic Eyes: PERRL, conjunctiva without injection ENT: Mucous membrane moist NECK: Supple, ROM intact LUNGS: LCTAB, no crackles/rhonchi CV: RRR ABDOMEN: Soft, no focal TTP. NO guarding rebound, guarding, rigidity. No CVA tenderness to percussion. Neg Kimbrough/Neg McBurney's point tenderness, no suprabupic tenderness to palpation. EXTREMITY: Normal ROM, no LE swelling b/l SKIN: No rash or erythema NEURO: Awake and alert, no focal motor deficits PSYCH: Normal mood and affect Course Vital Signs: Vital signs: Vital Signs Temperature 99.0 F 06/27/21 15:17 Pulse Rate 89 06/27/21 20:53 Respiratory Rate 17 06/27/21 20:53 Blood Pressure 178/74 06/27/21 20:53 Pulse Oximetry 96 06/27/21 20:53 MDM - General Adult MDM Narrative: Medical decision making narrative: 76-year-old female with history of diabetes, CKD, anemia, hypertension, DM prsenting to the emergency room for evaluation of cough dyspnea shortness of generalized weakness x2 days. On exam, patient is hemodynamically stable with no signs of respiratory distress. On sounds appear to be clear bilaterally. Case signed out to Dr. Feliciano pending work-up. Lab Data: Labs: Lab Results 06/27/21 06/27/21 06/27/21 15:47 18:05 18:05 WBC 2.7 10^3/uL L 10^ 3/uL (4.0-10.0) RBC 3.46 10^6/uL L 10 ^6/uL (4.1-5.3) Hgb 10.0 g/dL L g/dL (11.5-15.3) Hct 31.5 % L % (37.0-47.0) MCV 91.0 fl fl (81-99) MCH 28.9 pg pg (28.0-34.0) MCHC 31.7 g/dL g/dL (30.0-36.0) RDW 13.2 % % (12.1-15.1) Plt Count 119 10^3/cmm L 10 ^3/cmm (130-400) MPV 9.5 fL fL (7.4-10.4) Neut % (Auto) 62.9 % % Lymph % (Auto) 28.1 % % Alexander % (Auto) 7.1 % % Eos % (Auto) 1.5 % % Baso % (Auto) 0.4 % % Neut # (Auto) 1.68 10^3/uL L 10 ^3/uL (1.8-7.7) Lymph # (Auto) 0.8 10^3/uL 10^3/ uL (0.8-4.8) Alexander # (Auto) 0.2 10^3/uL 10^3/ uL (0.2-0.9) Eos # (Auto) 0.0 10^3/uL 10^3/ uL (0.0-0.8) Baso # (Auto) 0.0 10^3/uL 10^3/ uL (0.0-0.1) Nucleated RBC % (a uto) 0 % % Nucleated RBCs # 0.0 /100WBC /100W BC Sodium 137 mmol/L mmol/L (136-145) Potassium 4.2 mmol/L mmol/L (3.5-5.1) Chloride 101 mmol/L mmol/L (98-107) Carbon Dioxide 24 mmol/L mmol/L (22-29) Anion Gap 16.2 (5-19) BUN 10 mg/dL mg/dL (8-23) Creatinine 0.8 mg/dL mg/dL (0.5-0.9) GFR Calculation Not Reportable Glucose 105 mg/dL mg/dL (65-115) Calculated Osmolal ity 283 mOsm/kg L mOs m/kg (285-295) Calcium 8.5 mg/dL mg/dL (8.5-10.5) Total Bilirubin 0.5 mg/dL mg/dL (0.15-1.2) AST 21 U/L U/L (0-32) ALT 14 U/L U/L (0-33) Alkaline Phosphata se 134 IU/L H IU/L (35-105) Troponin T Baselin e Troponin T 120 Min [place] Troponin T NT-Pro-B Natriuret Pep 516 pg/mL H pg/mL (0-450) Total Protein 6.4 g/dL L g/dL (6.6-8.7) Albumin 4.0 g/dL g/dL (3.5-5.2) Globulin 2.4 g/dL g/dL (1.3-4.6) Lipase 25 U/L U/L (13-60) Urine Color Straw (Yellow) Urine Appearance Clear (CLEAR) Urine pH 6 (5-7) Ur Specific Gravit y 1.005 (1.005-1.030) Urine Protein Neg (Negative) Urine Glucose (UA) Norm (Normal) Urine Ketones Negative (Negative) Urine Blood 2+ H (Negative) Urine Nitrate Negative (Negative) Urine Bilirubin Neg (Negative) Urine Urobilinogen Norm mg/dL mg/dL (Negative) Ur Leukocyte Sri ase Negative (Negative) Urine RBC 0-4 /hpf H /hpf (0-2) Urine WBC Rare /hpf /hpf (0-5) Ur Squamous Epith Cells None /hpf /hpf (0-5) Amorphous Sediment Not Reportable Urine Bacteria Trace /hpf /hpf (NONE) Coronavirus 229E ( PCR) Human Metapneumovi r PCR Entero/Rhino (PCR) SARS-CoV-2 (PCR) 06/27/21 06/27/21 06/27/21 18:05 18:05 19:43 WBC RBC Hgb Hct MCV MCH MCHC RDW Plt Count MPV Neut % (Auto) Lymph % (Auto) Alexander % (Auto) Eos % (Auto) Baso % (Auto) Neut # (Auto) Lymph # (Auto) Alexander # (Auto) Eos # (Auto) Baso # (Auto) Nucleated RBC % (a uto) Nucleated RBCs # Sodium Potassium Chloride Carbon Dioxide Anion Gap BUN Creatinine GFR Calculation Glucose Calculated Osmolal ity Calcium Total Bilirubin AST ALT Alkaline Phosphata se Troponin T Baselin e 13 ng/L H ng/L (0-10) Troponin T 120 Min [place] 12.97 ng/L H ng/L (0-10) Delta Troponin T -0.03 ABS# L ABS# (0-10) NT-Pro-B Natriuret Pep Total Protein Albumin Globulin Lipase Urine Color Urine Appearance Urine pH Ur Specific Gravit y Urine Protein Urine Glucose (UA) Urine Ketones Urine Blood Urine Nitrate Urine Bilirubin Urine Urobilinogen Ur Leukocyte Sri ase Urine RBC Urine WBC Ur Squamous Epith Cells Amorphous Sediment Urine Bacteria Coronavirus 229E ( PCR) Not detected (NOT DETECT) Human Metapneumovi r PCR Entero/Rhino (PCR) SARS-CoV-2 (PCR) Not detected (NOT DETECT) 06/27/21 20:05 WBC RBC Hgb Hct MCV MCH MCHC RDW Plt Count MPV Neut % (Auto) Lymph % (Auto) Alexander % (Auto) Eos % (Auto) Baso % (Auto) Neut # (Auto) Lymph # (Auto) Alexander # (Auto) Eos # (Auto) Baso # (Auto) Nucleated RBC % (a uto) Nucleated RBCs # Sodium Potassium Chloride Carbon Dioxide Anion Gap BUN Creatinine GFR Calculation Glucose Calculated Osmolal ity Calcium Total Bilirubin AST ALT Alkaline Phosphata se Troponin T Baselin e Troponin T 120 Min [place] Troponin T NT-Pro-B Natriuret Pep Total Protein Albumin Globulin Lipase Urine Color Urine Appearance Urine pH Ur Specific Gravit y Urine Protein Urine Glucose (UA) Urine Ketones Urine Blood Urine Nitrate Urine Bilirubin Urine Urobilinogen Ur Leukocyte Sri ase Urine RBC Urine WBC Ur Squamous Epith Cells Amorphous Sediment Urine Bacteria Coronavirus 229E ( PCR) Human Metapneumovi r PCR Detected A (NOT DETECT) Entero/Rhino (PCR) Not detected (NOT DETECT) SARS-CoV-2 (PCR) Discharge Plan Discharge Patient Disposition: Home Clinical Impression: Generalized weakness, Fatigue, Cough, Dyspnea Pneumonia Qualifiers: Laterality: bilateral Condition: Stable Prescriptions: New acetaminophen 500 mg tablet 500 mg PO Q6H PRN (Reason: pain) 5 Days Qty: 20 RF: 0 doxycycline hyclate 100 mg capsule 100 mg PO BID 7 Days Qty: 14 RF: 0 No Action naloxone 4 mg/actuation spray,non-aerosol 4 mg INTRANASAL Q3M PRN (Reason: opioid overdose) Qty: 2 RF: 0 sulfamethoxazole-trimethoprim 400-80 mg tablet 1 tab PO BID RF: 0 oxycodone-acetaminophen 5-325 mg tablet 1 tab PO Q4H PRN (Reason: Moderate Pain) RF: 0 Levemir FlexTouch U-100 Insuln 100 unit/mL (3 mL) Insulin Pen 20 unit SUBCUT BEDTIME RF: 0 pantoprazole 20 mg tablet,delayed release (DR/EC) 40 mg PO BID PRN (Reason: stomach acid/heartburn) Qty: 0 RF: 0 lisinopril 20 mg tablet 20 mg PO DAILY Qty: 30 RF: 0 citalopram 40 mg tablet 40 mg PO DAILY RF: 0 levothyroxine 150 mcg tablet 150 mcg PO 0600 RF: 0 lorazepam 1 mg tablet 0.5 mg PO TID PRN (Reason: Nausea) RF: 0 rosuvastatin [Crestor] 40 mg tablet 40 mg PO BEDTIME RF: 0 trazodone 50 mg tablet 100 mg PO BEDTIME RF: 0 potassium chloride 10 mEq tablet extended release 20 meq PO DAILY RF: 0 dronabinol 5 mg capsule 5 mg PO TID PRN (Reason: nausea and vomiting) Qty: 14 RF: 0 furosemide [Lasix] 20 mg Tablet 20 mg PO DAILY RF: 0 Hold Instructions: Resume on 05/27/20. gabapentin 100 mg capsule 300 mg PO TID RF: 0 Discharge Orders: Discharge ED (Routine); Ordered 06/27/21 Ordered By: Pawan Feliciano Referrals: Chapin Keita MD [Primary Care Provider] - 1-3 days Discharge Diet: Advance as tolerated Discharge Activity: Resume usual activity Activity Restrictions/Additional Instructions: Come back to the emergency room if your symptoms worsen, have any shortness of breath, fever/chills, dehydration, inability tolerate oral liquids, any difficulty breathing, or any new or concerning complaints. Your CT scan showed bilateral mild pneumonia. You will be covered for this with antibiotics, as your COVID-19 PCR test was negative in the emergency room. Coding Level of Care Code ED [employer] for Chg Fwd Documented by User: Pawan Feliciano DO 06/27/21 21:04 HPI - General Adult General: Chief complaint: Nausea/Vomiting/Diarrhea Stated complaint: weakness and sickness Time Seen by Provider: 06/27/21 16:35 PFSH ED PFSH: Medical History Acute encephalopathy Acute kidney injury Anxiety -anxiolytics PRN Cervical cancer, FIGO stage EVARISTO Cholelithiasis Chronic anemia CKD (chronic kidney disease) stage 2, GFR 60-89 ml/min Dehydration Diabetes mellitus Diverticulitis of large intestine with perforation and abscess without bleeding Gastroesophageal reflux disease Hypertension Hypothyroidism Low back pain Morbid obesity -BMI-34 kg/m2 Oropharyngeal candidiasis -apparent oral lesions on examination; ongoing odynophagia, dysphagia; symptoms resolved -opportunistic infection in immunocompromised patient -loaded with fluconazole 400 mg x 1, now on 200 mg once daily; due to improvement will switch to PO, plan to treat x 7 days -off IVF hydration; improved oral intake -tolerating GI soft diet -nystatin swish and swallow, magic mouthwash -pain control as needed -appreciate ST evaluation; cleared for regular diet/liquids Rectal fissure -on exam with some intermittent bleeding; no more so far -continue to monitor H/H; drop likely dilutional Surgical History H/O pelvic surgery Cervical biopsy, cystoscopy with biopsy, rigid proctoscopy to 15 cm ([facility]) Family History Mother CAD (coronary artery disease) Father Aneurysm brain Sister Cancer breast cancer Family/Other Cancer breast cancer in niece Social History Smoking and tobacco status: never smoked Second hand smoke exposure: No Alcohol intake: never Household members: children Housing: House History of recent travel: No Course Vital Signs: Vital signs: Vital Signs Temperature 99.0 F 06/27/21 15:17 Pulse Rate 89 06/27/21 20:53 Respiratory Rate 17 06/27/21 20:53 Blood Pressure 178/74 06/27/21 20:53 Pulse Oximetry 96 06/27/21 20:53 MDM - General Adult MDM Narrative: Medical decision making narrative: 76-year-old female checked out to me at shift change by the previous physician. Nonspecific cough, fever, weakness and diffuse belly pain for the past couple of days. She is pancytopenic. BMP is normal. CT of the chest abdomen pelvis shows bilateral pneumonitis, with no acute abdominal or pelvic pathology. Her COVID-19 PCR is negative currently. She will be treated for the pneumonitis, covered with antibiotics, and follow-up as an outpatient. She was quite hypertensive here in the ER, and was given antihypertensives with good result. Lab Data: Labs: Lab Results 06/27/21 06/27/21 06/27/21 15:47 18:05 18:05 WBC 2.7 10^3/uL L 10^ 3/uL (4.0-10.0) RBC 3.46 10^6/uL L 10 ^6/uL (4.1-5.3) Hgb 10.0 g/dL L g/dL (11.5-15.3) Hct 31.5 % L % (37.0-47.0) MCV 91.0 fl fl (81-99) MCH 28.9 pg pg (28.0-34.0) MCHC 31.7 g/dL g/dL (30.0-36.0) RDW 13.2 % % (12.1-15.1) Plt Count 119 10^3/cmm L 10 ^3/cmm (130-400) MPV 9.5 fL fL (7.4-10.4) Neut % (Auto) 62.9 % % Lymph % (Auto) 28.1 % % Alexander % (Auto) 7.1 % % Eos % (Auto) 1.5 % % Baso % (Auto) 0.4 % % Neut # (Auto) 1.68 10^3/uL L 10 ^3/uL (1.8-7.7) Lymph # (Auto) 0.8 10^3/uL 10^3/ uL (0.8-4.8) Alexander # (Auto) 0.2 10^3/uL 10^3/ uL (0.2-0.9) Eos # (Auto) 0.0 10^3/uL 10^3/ uL (0.0-0.8) Baso # (Auto) 0.0 10^3/uL 10^3/ uL (0.0-0.1) Nucleated RBC % (a uto) 0 % % Nucleated RBCs # 0.0 /100WBC /100W BC Sodium 137 mmol/L mmol/L (136-145) Potassium 4.2 mmol/L mmol/L (3.5-5.1) Chloride 101 mmol/L mmol/L (98-107) Carbon Dioxide 24 mmol/L mmol/L (22-29) Anion Gap 16.2 (5-19) BUN 10 mg/dL mg/dL (8-23) Creatinine 0.8 mg/dL mg/dL (0.5-0.9) GFR Calculation Not Reportable Glucose 105 mg/dL mg/dL (65-115) Calculated Osmolal ity 283 mOsm/kg L mOs m/kg (285-295) Calcium 8.5 mg/dL mg/dL (8.5-10.5) Total Bilirubin 0.5 mg/dL mg/dL (0.15-1.2) AST 21 U/L U/L (0-32) ALT 14 U/L U/L (0-33) Alkaline Phosphata se 134 IU/L H IU/L (35-105) Troponin T Baselin e Troponin T 120 Min [place] Troponin T NT-Pro-B Natriuret Pep 516 pg/mL H pg/mL (0-450) Total Protein 6.4 g/dL L g/dL (6.6-8.7) Albumin 4.0 g/dL g/dL (3.5-5.2) Globulin 2.4 g/dL g/dL (1.3-4.6) Lipase 25 U/L U/L (13-60) Urine Color Straw (Yellow) Urine Appearance Clear (CLEAR) Urine pH 6 (5-7) Ur Specific Gravit y 1.005 (1.005-1.030) Urine Protein Neg (Negative) Urine Glucose (UA) Norm (Normal) Urine Ketones Negative (Negative) Urine Blood 2+ H (Negative) Urine Nitrate Negative (Negative) Urine Bilirubin Neg (Negative) Urine Urobilinogen Norm mg/dL mg/dL (Negative) Ur Leukocyte Sri ase Negative (Negative) Urine RBC 0-4 /hpf H /hpf (0-2) Urine WBC Rare /hpf /hpf (0-5) Ur Squamous Epith Cells None /hpf /hpf (0-5) Amorphous Sediment Not Reportable Urine Bacteria Trace /hpf /hpf (NONE) Coronavirus 229E ( PCR) Human Metapneumovi r PCR Entero/Rhino (PCR) SARS-CoV-2 (PCR) 06/27/21 06/27/21 06/27/21 18:05 18:05 19:43 WBC RBC Hgb Hct MCV MCH MCHC RDW Plt Count MPV Neut % (Auto) Lymph % (Auto) Alexander % (Auto) Eos % (Auto) Baso % (Auto) Neut # (Auto) Lymph # (Auto) Alexander # (Auto) Eos # (Auto) Baso # (Auto) Nucleated RBC % (a uto) Nucleated RBCs # Sodium Potassium Chloride Carbon Dioxide Anion Gap BUN Creatinine GFR Calculation Glucose Calculated Osmolal ity Calcium Total Bilirubin AST ALT Alkaline Phosphata se Troponin T Baselin e 13 ng/L H ng/L (0-10) Troponin T 120 Min [place] 12.97 ng/L H ng/L (0-10) Delta Troponin T -0.03 ABS# L ABS# (0-10) NT-Pro-B Natriuret Pep Total Protein Albumin Globulin Lipase Urine Color Urine Appearance Urine pH Ur Specific Gravit y Urine Protein Urine Glucose (UA) Urine Ketones Urine Blood Urine Nitrate Urine Bilirubin Urine Urobilinogen Ur Leukocyte Sri ase Urine RBC Urine WBC Ur Squamous Epith Cells Amorphous Sediment Urine Bacteria Coronavirus 229E ( PCR) Not detected (NOT DETECT) Human Metapneumovi r PCR Entero/Rhino (PCR) SARS-CoV-2 (PCR) Not detected (NOT DETECT) 06/27/21 20:05 WBC RBC Hgb Hct MCV MCH MCHC RDW Plt Count MPV Neut % (Auto) Lymph % (Auto) Alexander % (Auto) Eos % (Auto) Baso % (Auto) Neut # (Auto) Lymph # (Auto) Alexander # (Auto) Eos # (Auto) Baso # (Auto) Nucleated RBC % (a uto) Nucleated RBCs # Sodium Potassium Chloride Carbon Dioxide Anion Gap BUN Creatinine GFR Calculation Glucose Calculated Osmolal ity Calcium Total Bilirubin AST ALT Alkaline Phosphata se Troponin T Baselin e Troponin T 120 Min [place] Troponin T NT-Pro-B Natriuret Pep Total Protein Albumin Globulin Lipase Urine Color Urine Appearance Urine pH Ur Specific Gravit y Urine Protein Urine Glucose (UA) Urine Ketones Urine Blood Urine Nitrate Urine Bilirubin Urine Urobilinogen Ur Leukocyte Sri ase Urine RBC Urine WBC Ur Squamous Epith Cells Amorphous Sediment Urine Bacteria Coronavirus 229E ( PCR) Human Metapneumovi r PCR Detected A (NOT DETECT) Entero/Rhino (PCR) Not detected (NOT DETECT) SARS-CoV-2 (PCR) Discharge Plan Discharge Patient Disposition: Home Clinical Impression: Generalized weakness, Fatigue, Cough, Dyspnea Pneumonia Qualifiers: Laterality: bilateral Condition: Stable Prescriptions: New acetaminophen 500 mg tablet 500 mg PO Q6H PRN (Reason: pain) 5 Days Qty: 20 RF: 0 doxycycline hyclate 100 mg capsule 100 mg PO BID 7 Days Qty: 14 RF: 0 No Action naloxone 4 mg/actuation spray,non-aerosol 4 mg INTRANASAL Q3M PRN (Reason: opioid overdose) Qty: 2 RF: 0 sulfamethoxazole-trimethoprim 400-80 mg tablet 1 tab PO BID RF: 0 oxycodone-acetaminophen 5-325 mg tablet 1 tab PO Q4H PRN (Reason: Moderate Pain) RF: 0 Levemir FlexTouch U-100 Insuln 100 unit/mL (3 mL) Insulin Pen 20 unit SUBCUT BEDTIME RF: 0 pantoprazole 20 mg tablet,delayed release (DR/EC) 40 mg PO BID PRN (Reason: stomach acid/heartburn) Qty: 0 RF: 0 lisinopril 20 mg tablet 20 mg PO DAILY Qty: 30 RF: 0 citalopram 40 mg tablet 40 mg PO DAILY RF: 0 levothyroxine 150 mcg tablet 150 mcg PO 0600 RF: 0 lorazepam 1 mg tablet 0.5 mg PO TID PRN (Reason: Nausea) RF: 0 rosuvastatin [Crestor] 40 mg tablet 40 mg PO BEDTIME RF: 0 trazodone 50 mg tablet 100 mg PO BEDTIME RF: 0 potassium chloride 10 mEq tablet extended release 20 meq PO DAILY RF: 0 dronabinol 5 mg capsule 5 mg PO TID PRN (Reason: nausea and vomiting) Qty: 14 RF: 0 furosemide [Lasix] 20 mg Tablet 20 mg PO DAILY RF: 0 Hold Instructions: Resume on 05/27/20. gabapentin 100 mg capsule 300 mg PO TID RF: 0 Discharge Orders: Discharge ED (Routine); Ordered 06/27/21 Ordered By: Pawan Feliciano Referrals: Chapin Keita MD [Primary Care Provider] - 1-3 days Discharge Diet: Advance as tolerated Discharge Activity: Resume usual activity Activity Restrictions/Additional Instructions: Come back to the emergency room if your symptoms worsen, have any shortness of breath, fever/chills, dehydration, inability tolerate oral liquids, any difficulty breathing, or any new or concerning complaints. Your CT scan showed bilateral mild pneumonia. You will be covered for this with antibiotics, as your COVID-19 PCR test was negative in the emergency room. Coding Level of Care Code ED [employer] for Asha Alanis
[2021-06-27] MEDS: famotidine 20 mg/2 mL INJ IVP (17:53)
[2021-06-27] MEDS: sodium chloride 0.9% 500 ML 999 ML IV (17:53)
[2021-06-27 18:08] VITALS: BP 201/118; PULSE 76; PULSE 78; RESP 19; O2SAT 91
[2021-06-27 18:21] LABS: Basophils % 0.4 %; Eosinophils % 1.5 %; Hematocrit 31.5 % (37.0-47.0); Lymphocytes # 0.8 10^3/uL (0.8-4.8); Lymphocytes % 28.1 %; Mean Corpuscular HGB Conc 31.7 g/dL (30.0-36.0); Mean Corpuscular Hemoglobin 28.9 pg (28.0-34.0); Mean Platelet Volume 9.5 fL (7.4-10.4); Monocytes # 0.2 10^3/uL (0.2-0.9); Monocytes % 7.1 %; Neutrophils # 1.68 10^3/uL (1.8-7.7); Neutrophils % 62.9 %; Nucleated Red Blood Cells % 0 %; Platelet Count 119 10^3/cmm (130-400); Red Blood Count 3.46 10^6/uL (4.1-5.3); Red Cell Distribution Width 13.2 % (12.1-15.1); White Blood Count 2.7 10^3/uL (4.0-10.0)
[2021-06-27 18:40] LABS: Troponin(5th) Baseline 13 ng/L (0-10)
--- NOTE | 2021-06-27 18:46 | CTR_ITS ---
PROCEDURE INFORMATION: Exam: CT Chest With Contrast; Diagnostic Exam date and time: 06/27/2021 6:46 PM Age: 76 years old Clinical indication: Constipation and vomiting; Shortness of breath; Additional info: Shortness of breath, vomiting, diarrhea, pancytopenia TECHNIQUE: Imaging protocol: Diagnostic computed tomography of the chest with contrast. Total images: 539 Radiation optimization: All CT scans at this facility use at least one of these dose optimization techniques: automated exposure control; mA and/or kV adjustment per patient size (includes targeted exams where dose is matched to clinical indication); or iterative reconstruction. Contrast material: VISIPAQUE 320; Contrast volume: 95 ml; Contrast route: INTRAVENOUS (IV); COMPARISON: CT chest abd pel w con* 10/26/2020 10:38 AM RADIATION DOSE METRICS: Total DLP (mGy-cm): 1787.08 FINDINGS: Lungs: Apicoposterior segment left upper lobe and left lower lobe pneumonitis/pneumonia. Less significant pneumonitis/pneumonia of the right upper and right middle lobe. Pleural spaces: No pneumothorax. No pleural effusion. Heart: No cardiomegaly. No visible pericardial effusion. Mild coronary artery disease. Calcified mitral annulus. Pulmonary arteries: No visible central pulmonary embolic disease. Aorta: The thoracic aorta is nonaneurysmal. No visible intimal flap or dissection. Mild arteriosclerosis. Bovine aortic arch is a normal anatomical variant. Lymph nodes: Mild reactive hilar lymphadenopathy/lymphadenitis. Calcified complexes of antecedent granulomatous disease. No axillary lymphadenopathy. Bones/joints: No visible acute osseous abnormality. Soft tissues: Obesity. PROCEDURE INFORMATION: Exam: CT Abdomen And Pelvis With Contrast Exam date and time: 06/27/2021 6:46 PM Age: 76 years old Clinical indication: Constipation and vomiting; Shortness of breath; Additional info: Shortness of breath, vomiting, diarrhea, pancytopenia TECHNIQUE: Imaging protocol: Computed tomography of the abdomen and pelvis with contrast. Radiation optimization: All CT scans at this facility use at least one of these dose optimization techniques: automated exposure control; mA and/or kV adjustment per patient size (includes targeted exams where dose is matched to clinical indication); or iterative reconstruction. Contrast material: VISIPAQUE 320; Contrast volume: 95 ml; Contrast route: INTRAVENOUS (IV); COMPARISON: 1. CT abdomen pelvis w con* [id number] 10:[address] chest abd pel w con* 10/26/2020 10:38 AM RADIATION DOSE METRICS: Total DLP (mGy-cm): 1787.08 FINDINGS: Liver: No visible hepatic mass or cystic structure. Gallbladder and bile ducts: Cholelithiasis. Pancreas: Moderate pancreatic atrophy. No visible pancreatic ductal ectasia. Spleen: Splenomegaly. Few scattered splenic calcified granulomas of antecedent disease. Adrenal glands: Adrenal glands unremarkable. Kidneys and ureters: No hydronephrosis or perinephric fluid bilaterally. No visible nephrolithiasis or visible ureterolithiasis. Mildly atrophic left kidney. No visible renal mass. Stomach and bowel: Diverticulosis coli, primarily the sigmoid colon, without visible evidence of acute diverticulitis. Nonobstructive bowel pattern. No visible adynamic or reactive ileus. Appendix: The appendix is visualized and appears noninflamed. Intraperitoneal space: No visible pneumoperitoneum or intraperitoneal ascites. Vasculature: Portal vein patent. The abdominal aorta is nonaneurysmal. Moderate arterial sclerotic disease. Lymph nodes: No pathologically enlarged lymph nodes. Urinary bladder: Urinary bladder unremarkable. Reproductive: Unremarkable as visualized for age. Bones/joints: No visible acute osseous abnormality. Bilateral spondylolysis L5/S1 with grade 1 anterior spondylolisthesis. Advanced degenerative disc disease L5/S1 with disc space height loss. Early vacuum disc phenomenon. Facet arthrosis. Osteopenia/osteoporosis. Soft tissues: Obesity. CT/CT chest abd pel w con* IMPRESSION: 1. Bilateral pneumonitis/pneumonia, left lung more involved than right. 2. Mild reactive hilar lymphadenopathy/lymphadenitis. IMPRESSION: 1. Currently no visible evidence for acute abdominal or pelvic pathologic process. 2. Cholelithiasis. 3. Diverticulosis coli without visible evidence for acute diverticulitis. 4. Splenomegaly.
[2021-06-27 18:49] LABS: Alanine Aminotransferase 14 U/L (0-33); Alkaline Phosphatase 134 IU/L (35-105); Anion Gap 16.2 (5-19); Aspartate Amino Transferase 21 U/L (0-32); Blood Urea Nitrogen 10 mg/dL (8-23); Calcium 8.5 mg/dL (8.5-10.5); Carbon Dioxide 24 mmol/L (22-29); Chloride 101 mmol/L (98-107); Globulin 2.4 g/dL (1.3-4.6); Glucose 105 mg/dL (65-115); Lipase 25 U/L (13-60); NT Pro B Type Natriuretic Pept 516 pg/mL (0-450); Osmolality Calculated 283 mOsm/kg (285-295); Potassium 4.2 mmol/L (3.5-5.1); Sodium 137 mmol/L (136-145); Total Bilirubin 0.5 mg/dL (0.15-1.2); Total Protein 6.4 g/dL (6.6-8.7)
--- NOTE | 2021-06-27 18:50 | ECG_ITS ---
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 Measurements Intervals [place] Rate: 78 P: 48 MS: 178 QRS: 75 QRSD: 106 T: 7 QT: 383 QTc: 438 Interpretive Statements SINUS RHYTHM Nonspecific T wave abnormality Compared to ECG 09/14/2020 21:34:34 T wave deviation no longer present Electronically Signed On 06-28-2021 16:56:50 PRODUCT SAFETY TESTER by Temitope Cantrell M.D. [id number]
[2021-06-27] MEDS: enalaprilat 1.25 mg/mL Inj IVP (19:06)
[2021-06-27] MEDS: labetalol 5 mg/mL SDV 20mL 20 MG IVP (19:07)
[2021-06-27] MEDS: iodixanol 320 mg/mL 100mL Btl IV (19:28)
[2021-06-27 19:59] LABS: Adenovirus Not Detected (NOT DETECT); Chlamydia Pneumoniae Not Detected (NOT DETECT); Coronavirus 229E,HKU1,NL63,OC4 Not Detected (NOT DETECT); Human Metapneumovirus Detected (NOT DETECT); Human Rhinovirus/Enterovirus Not Detected (NOT DETECT); Influenza A Not Detected (NOT DETECT); Influenza A H1 Not Detected (NOT DETECT); Influenza A H1-2009 Not Detected (NOT DETECT); Influenza A H3 Not Detected (NOT DETECT); Influenza B Not Detected (NOT DETECT); Mycoplasma Pneumoniae Not Detected (NOT DETECT); Parainfluenza Virus Type 1 Not Detected (NOT DETECT); Parainfluenza Virus Type 2 Not Detected (NOT DETECT); Parainfluenza Virus Type 3 Not Detected (NOT DETECT); Parainfluenza Virus Type 4 Not Detected (NOT DETECT); Respiratory Syncytial Virus A Not Detected (NOT DETECT); Respiratory Syncytial Virus B Not Detected (NOT DETECT); SARS-COV-2 Not Detected (NOT DETECT)
[2021-06-27 20:05] LABS: Human Metapneumovirus Detected (NOT DETECT); Human Rhinovirus/Enterovirus Not Detected (NOT DETECT); Results from Genmark
[2021-06-27 20:07] LABS: Troponin 5 2HR 12.97 ng/L (0-10)
[2021-06-27 20:10] LABS: Troponin 5 2HR Delta -0.03 ABS# (0-10)
[2021-06-27 20:53] VITALS: BP 178/74; PULSE 89; RESP 17; O2SAT 96
[2021-06-27] MEDS: doxycycline 100 mg Tablet PO (21:10)
[2021-06-27 21:24] VITALS: BP 167/40; PULSE 76; RESP 18; TEMP 37.3; O2SAT 93
== END 2021-06-27 21:25 | disposition home or self-care (01) ==
PROVIDERS: Emergency Medicine; Emergency Provider Emergency Medicine; PCP Family Medicine
DX: J18.9 Pneumonia, unspecified organism (principal); Z79.4 Long term (current) use of insulin; Z85.41 Personal history of malignant neoplasm of cervix uteri; I12.9 Hypertensive chronic kidney disease with stage 1 through stage 4 chronic kidney disease, or unspecified chronic kidney disease; E11.22 Type 2 diabetes mellitus with diabetic chronic kidney disease; N18.2 Chronic kidney disease, stage 2 (mild); Z20.822 Contact with and (suspected) exposure to COVID-19
CPT/HCPCS: 36415; 71045; 71260; 74177; 80053; 81001; 83690; 83880; 84484; 85025; 87635; 87801; 93005; 96374; 96375; 99284; J3490; J7040; Q9967

== ENCOUNTER 2021-06-29 10:12 | Outpatient (CLI) | payer MEDICARE, MEDICAID, SELFPAY ==
[2021-06-29] MEDS: sodium chloride 0.9% 1,000 ML 999 ML IV (10:38)
[2021-06-29] MEDS: ondansetron 2 mg/ML SDV 2 mL 8 MG IV (10:40)
== END 2021-06-29 10:13 | disposition home or self-care (01) ==
PROVIDERS: PCP Family Medicine; Visit Provider Internal Medicine Medical Oncology
DX: C53.9 Malignant neoplasm of cervix uteri, unspecified (principal); Z79.52 Long term (current) use of systemic steroids
CPT/HCPCS: 96361; 96365; 96375; J1100; J2405; J7030

== ENCOUNTER 2021-07-26 15:46 | Outpatient (CLI) | payer MEDICARE, MEDICAID, SELFPAY ==
--- NOTE | 2021-07-30 14:59 | ONC FU_ITS ---
Dr. Downey Patient Follow-Up Note Patient: Sharon Sotelo Unit #: [id number]: 1945 Dicatated By: Gato Downey M.D.Date of Visit:Jul 26, 2021 Onc Med Follow-up/Prog Note Chief Complaint: Cervical cancer. 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 On 05/03/2019 she had presented to the emergency room with pain in the left lower quadrant/left flank area and difficulty voiding. Her CT abdomen/pelvis showed a soft tissue mass which was involving the left superior lateral aspect of the urinary bladder and was contiguous with the cervix. It measured at least 4 x 4.9 x 5.8 cm. There was associated ureterovesical junction obstruction and moderate left hydronephrosis. There was associated adenopathy including a left inferior pelvic lymph node measuring 1 x 1.5 cm, a left para-aortic lymph node measuring 1.4 cm, a common iliac lymph node measuring 1.1 cm, and bilateral external iliac lymph nodes measuring up to 2.1 x 4.2 cm on the right and 1 x 1.7 cm on the left. She was referred to Dr. Ybarra in [place]. On 06/04/2019 she underwent exam under anesthesia with cervical biopsy, cystoscopy with biopsy, and rigid proctoscopy to 15 cm. Her tumor appeared to be fixed to the left pelvic sidewall and there was noted to be right-sided parametrial disease. On the cystoscopy the tumor did appear to be involving the bladder. The cervical biopsy and the bladder biopsy both showed poorly differentiated squamous cell carcinoma. She was recommended to undergo chemoradiation. She began radiation concurrently with weekly cisplatin chemotherapy on 07/15/2019. She experienced no acute toxicity with her initial infusion of cisplatin. She was then able to continue her treatment weekly, completing her 6th infusion of cisplatin on 09/02/2019. She completed radiation on 09/03/2019 to a total dose of 5940 cGy. During her treatment she did require some growth factor support with Neupogen. She also required IV hydration on multiple occasions for nausea and poor oral intake. I had seen her for a follow-up visit on 09/18/2019. At that point she was really doing quite poorly, as she had gotten very weak and she was having significant anorexia/nausea, so that her oral intake was very poor. She was significantly pancytopenic with hemoglobin 6.4 g, white blood cell count 2000, and platelet count 66,000. She was transfused and she was given further IV hydration and supportive care measures. During subsequent follow-up there was further decline in the granulocyte count, nadiring at approximately 1000. She then began to show gradual improvement in her clinical status. However, during that time she had been to the radiation oncologist in [place] on 2 occasions, and on both she was declined for her brachytherapy. She eventually opted against treatment. On 12/21/2019 she was admitted to the hospital with complaints of chest pain in association with eating and rectal pain/bleeding. She had evidence of oral pharyngeal candidiasis and there was associated dehydration and acute renal injury. She also was significantly hyperglycemic. She had symptomatic improvement with IV hydration and IV fluconazole. Also was improvement in her renal function. She remained moderately anemic, but above transfusion threshold. The rectal bleeding was thought to be most likely due to anal fissure, and that improved with conservative management. Following discharge from the hospital, she did start Levemir 20 units daily at bedtime along with regular insulin per sliding scale. She began tapering off dexamethasone. She was then seen Dr. Keita with pain in the left lower quadrant of her abdomen. Her CT abdomen/pelvis on 02/11/2020 showed wall thickening of the sigmoid colon with associated inflammatory change and fluid. There were diverticula noted, and it was felt that the appearance was most consistent with sigmoid colon diverticulitis. There was no evidence of recurrent or metastatic neoplasm. She began on empiric antibiotic coverage with ciprofloxacin and metronidazole. Despite that, her symptoms worsened. On 02/14/2020 she was admitted to the hospital with abdominal abscess in association with bowel perforation. She was given antibiotic coverage with ceftazidime, vancomycin, and metronidazole. She was significantly anemic, requiring PRBC transfusion. She was found to have positive stool FOB, and she was taken off apixaban. She improved clinically. On 02/20/2020 she was discharged home to continue outpatient antibiotic coverage with ertapenem 1 g IV daily. She restarted apixaban with the dosage reduced to 2.5 mg twice daily. I had seen her for a follow-up visit on 03/04/2020. At that point she was still on her antibiotic therapy, and she was showing clinical improvement. Her further clinical course was complicated by development of pain in her right lower back and right leg, which was clinically felt to be consistent with sciatica. She has had multiple ER visits for it this month. Her right hip x-ray on 04/04/2020 showed radiolucencies in the proximal femoral shaft with some endosteal scalloping and possibly involvement of the lateral cortex and medullary canal felt to be most consistent with metastatic disease versus myeloma versus osteomyelitis. Lumbar spine CT on 04/12/2020 showed degenerative changes but no evidence of metastatic disease. CT abdomen/pelvis on 04/21/2020 showed no evidence of residual or recurrent diverticular abscess. There was evidence of diffuse endometrial thickening which was felt to be suspicious for neoplasia, but the findings were similar to the previous study from March 2020. CT of the right femur on 04/22/2020 showed no evidence of metastatic lesions in the right proximal femur and no evidence of pathologic fracture. A small amount of endosteal scalloping of the right proximal femoral shaft was present on the prior PET/CT scans and the appearance was noted to be unchanged. This was felt to most likely be a benign finding. I had seen her for a follow-up visit on 04/24/2020. At that time she was still complaining of severe pain in the right leg. In the absence of any CT evidence of recurrence/progression of the cervical cancer, she continued symptomatic management. On 05/21/2020 she was admitted to the hospital after falling at home. There were no new findings on her repeat CT abdomen/pelvis. MRI of the lumbar spine showed mild disc bulging at multiple levels. A left foraminal disc protrusion at L3-L4 was noted to abut the L3 nerve root and there was also mild enlargement on the L4 nerve root in the subarticular recess. There was mild bilateral foraminal narrowing at L5-S1 with focal disc protrusion in the right lateral recess. There was no evidence of metastatic disease noted on that study. With those findings she was referred to pain management and she underwent an L4/5 interlaminar epidural steroid injection on 07/20/2020. I had seen her for a follow-up visit again on 08/04/2020. She reported no significant improvement in the pain following the epidural steroid injection. She was having neuropathy symptoms in both legs, at that point I had suspected that the pain was most likely due to neuropathy from the chemotherapy and/or radiation. She continued symptomatic management with immediate release oxycodone. She had neurology consultation with Dr. Doan on 09/28/2020. 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 Her other medical illnesses include hypertension, type 2 diabetes, and hypothyroidism. She also has chronic anxiety. She is a non-smoker. INTERIM HISTORY: Restaging CT scans of the chest, abdomen, and pelvis on 10/26/2020 showed an ill-defined lobulated endometrial mass, appearance of which was suspicious for malignancy. Also noted was an abnormal fluid collection in the endometrial cavity. There was no lymphadenopathy or other evidence of metastatic disease. She had further evaluation with PET/CT on 10/31/2020. It showed a new soft tissue lesion adjacent to the sigmoid bowel measuring 2.2 x 1.6 cm, SUV 15.4, with high probability of recurrence. A right obturator lymph node showed modest improvement measuring 1.2 cm with SUV 3.0. There were no other areas of abnormal uptake. With those findings she continued expectant management. Restaging CT of the abdomen/pelvis on 03/22/2021 showed a single mesenteric nodule in the right abdomen just lateral to the ascending colon measuring 1.3 cm. It did appear to be suspicious for a metastatic deposit. There was no significant change in small lymph nodes through the caro hepatis and celiac axis. Inflammatory collection in the left lower quadrant appeared to be most likely a resolving area of acute diverticulitis. 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 Overall the abscess appeared improved compared to the October 2020 CT. There was continued heterogeneous appearance of the endometrium, but with moderate improvement. Her CT abdomen/pelvis on 06/10/2021 showed a slight increase in the mesenteric nodule just lateral to the ascending colon measuring 2.0 x 1.9 cm compared to 1.0 x 1.3 cm on the March 2021 study. Slightly prominent lymph nodes along the caro hepatis and celiac axis appeared stable. There was no periaortic or pelvic lymphadenopathy and there was no inguinal lymphadenopathy. The appearance of the sigmoid diverticulosis with colocutaneous fistula adjacent to the round ligament in the left lower quadrant appeared unchanged. Heterogeneous thickened endometrium also appeared unchanged. Inflammatory stranding in the left lower quadrant along the sigmoid colon was felt to be suspicious for mild acute diverticulitis. There were no other interval changes. Further evaluation with PET/CT on 07/10/2021 showed development of a new hypermetabolic soft tissue nodule in the right lower quadrant adjacent to the cecum measuring 2.5 x 2.1 cm, SUV 10.3. It was felt to be consistent with recurrent malignancy. A new lytic lesion in the posterior left 8th rib also showed FDG activity and was consistent with osseous metastatic disease. Uptake in bilateral hilar lymph nodes was felt to be most likely reactive. Left lower quadrant soft tissue lesion noted on the prior study was noted to have resolved. A previously described right obturator lymph node appeared unchanged and had low-grade activity, consistent with chronic inflammation. She is seen for a follow-up visit. She says she has been feeling pretty good. Her activity is very limited, but she has been ambulating some with a walker. ECOG score is 3. Appetite is pretty good. She recently had a slight fever and he also called an ambulance out to the home when she become incoherent. She was having cough and chest congestion and her blood pressure apparently was low. Her lisinopril dosage was reduced, and her symptoms improved on antibiotic therapy. She says her cough is better now and her breathing also is better. She does not complain of chest pain. She has no GI or complaints. She has pain in both shoulders. She has persistent neuropathy in her legs and feet. Medications: Citalopram Hydrobromide 1 Tablet (of 40 mg) Oral daily, Dronabinol 1 Capsule (of 5 mg) Oral b.i.d. PRN, Duragesic-25 1 (25 mcg/hr) Patch 72 Hr Transdermal q 72 hours, Eliquis 1 Tablet (of 2.5 mg) Oral b.i.d., Gabapentin 1 Capsule (of 300 mg) Oral t.i.d., Lasix 1 Tablet (of 20 mg) Oral daily, Levemir 20 Units (of 100 Units/mL) Subcutaneous at bedtime, Levothyroxine Sodium 1 (150 mcg) Tablet Oral daily, Lisinopril 1 Tablet (of 10 mg) Oral daily, LORazepam 1 Tablet (of 1 mg) Oral t.i.d. PRN, Naloxegol Oxalate 1 Tablet (of 25 mg) Oral daily, Naloxone HCl 1 [place](s) (of 4 mg/0.1mL) Liquid Nasal PRN, oxyCODONE HCl 1 (15 mg) Tablet Oral four times a day PRN, Pantoprazole Sodium 1 Tablet (of 40 mg) Tablet, enteric coated Oral b.i.d., Potassium Chloride ER 1 Tablet (of 20 meq) Tablet, controlled release Oral daily, Rosuvastatin Calcium 1 Tablet (of 40 mg) Oral at bedtime, traZODone HCl 1 Tablet (of 50 mg) Oral at bedtime Allergies: Penicillins Vital Signs: Performed on Jul 26, 2021 16:06 Height - 66.00 in Weight - 183.6 lbs (LOW) BSA - 1.93 sq.m BMI - 29.63 Temperature - 97.6 F (LOW) Pulse - 76 /min Respiration - 16 /min BP - 135/73 mm(hg) O2 Sat - 96 % Pain - 10 Fatigue - 5 Physical Examination: Constitutional - She appears generally weak, Eyes - Sclerae nonicteric. Conjunctivae clear, ENMT - No lesions noted in the oral cavity, Hematologic/Lymphatic - No cervical, clavicular, or axillary adenopathy, Respiratory - Lungs sound clear, Cardiovascular - Heart rhythm is regular. There is a II/ systolic murmur. There is no gallop or rub noted, Abdomen - Soft. Liver and spleen are not enlarged. There is no abdominal mass or ascites noted. There is no inguinal adenopathy, Extremities - No edema. Dorsalis pedis pulses are palpable bilaterally, Neurologic - There is significant weakness in both legs. Lab/Imaging: Test performed on Jun 23, 2021 15:20 Sodium 137 mmol/L Potassium 3.8 mmol/L Chloride 99 mmol/L Est Avg Glucose (eAG) 114 mg/dL CO2 24 mmol/L Anion Gap 17.8 BUN 11 mg/dL Creatinine 0.9 mg/dL Cr Clearance (Est) 70.4500 mL/min Glucose 111 mg/dL Osmolality - Calculated 284 mOsm/kg Calcium 9.3 mg/dL Protein, Total 7.2 g/dL Albumin 4.2 g/dL Globulin 3.0 g/dL Bilirubin, Total 1.2 mg/dL ALT (SGPT) 10 U/L AST (SGOT) 14 U/L Alkaline Phosphatase 130 IU/L Hemoglobin A1C % 5.6 % WBC 3.8 10 3/uL RBC 3.80 10 6/uL HGB 11.1 g/dL HCT 34.7 % MCV 91.3 fl MCH 29.2 pg MCHC 32.0 g/dL RDW 12.9 % Platelet Count 142 10 3/cmm MPV 9.4 fL Neutrophils 2.57 10 3/uL Lymphocytes 0.8 10 3/uL Monocytes 0.3 10 3/uL Eosinophils 0.1 10 3/uL Basophils 0.0 10 3/uL Neutrophil % 66.8 % Lymphocyte % 21.9 % Monocyte % 8.9 % Eosinophil % 1.8 % Basophils % 0.3 % NRBC % 0 % Problem List: 1. Poorly differentiated squamous cell carcinoma of the cervix, stage EVARISTO (T4, N1, M0), with biopsy proven involvement in the bladder and with CT evidence of pelvic and left periaortic lymphadenopathy. On 06/04/2019 she underwent exam under anesthesia with cervical biopsy, cystoscopy with biopsy of the bladder, and rigid proctoscopy to 15 cm. 2. Hypertension. 3. Type 2 diabetes. 4. Hypothyroidism. 5. Chronic anxiety. Problems Addressed with this Encounter and Plan: 1. 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 She began radiation concurrently with weekly cisplatin chemotherapy on 07/15/2019. She had some nausea and fatigue with the initial chemotherapy treatment, but she was able to tolerate it with acceptable toxicity, and she continued her treatment weekly, completing her 6th infusion of cisplatin on 09/02/2019. She completed radiation on 09/03/2019 to a total dose of 5940 cGy. Her further clinical course was complicated by hospitalization for hyperglycemia, dehydration, and acute renal injury and by development of rectal fissure. She then developed persistent, neuropathic pain in the right leg, and during follow-up she has had very poor performance status. However, she did have a very good response to the chemoradiation by CT scan. As of May [address] scans had shown no evidence of recurrence/progression of the cervical cancer, and she continued observation/expectant management. Her restaging CT scans of the chest, abdomen, and pelvis from 10/26/2020 showed an ill-defined lobulated endometrial mass, appearance of which was suspicious for malignancy. Her restaging PET/CT on 10/31/2020 showed a new area of FDG uptake in the soft tissue adjacent to the sigmoid bowel thought to have high probability of representing recurrence. As the findings on these studies did not appear to correlate, I opted to just continue with expectant management. Her restaging CT abdomen/pelvis on 03/22/2021 showed findings consistent with resolving area of acute diverticulitis in the left lower abdominal quadrant. 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 There was evidence for a new mesenteric nodule in the right abdomen just lateral to the ascending colon measuring 1.3 cm. The appearance was felt to be suspicious for a metastatic deposit. That nodule had shown further enlargement on her repeat CT scan in June. Further evaluation with PET/CT on 07/10/2021 showed FDG avid right lower quadrant nodule consistent with recurrent malignancy as well as a lytic lesion in the left posterior 8th rib consistent with osseous metastatic disease. With those findings, the probability is very high that she has had recurrence of the cervical cancer. As such, I will now request next generation sequencing from the original biopsy, I will consider further treatment depending on those results. Given the persistent neuropathy and her overall poor performance status, I think the options will be limited to immunotherapy or possibly targeted therapy if a targetable mutation is identified. 2. 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 It has been managed symptomatically. Signed By: Gato Downey M.D. <<Signature on File>>
== END 2021-07-26 15:47 | disposition home or self-care (01) ==
PROVIDERS: PCP Family Medicine; Visit Provider Internal Medicine Medical Oncology
DX: C53.9 Malignant neoplasm of cervix uteri, unspecified (principal); I10 Essential (primary) hypertension; E11.9 Type 2 diabetes mellitus without complications; E03.9 Hypothyroidism, unspecified; F41.8 Other specified anxiety disorders
CPT/HCPCS: 99214

== ENCOUNTER 2021-08-10 15:34 | Outpatient (CLI) | payer MEDICARE, MEDICAID, SELFPAY ==
--- NOTE | 2021-08-10 15:45 | USCV_ITS ---
Sharon Sotelo Age: 76 Gender: F : 1945 Exam Date: 08/10/2021 15:18 Ordering Phys: Ishmael Martinez DPM Technologist: Stan Ledbetter RVMarti [place]am [place] [facility] [place]: RIGHT LEFT Brachial 147.00 mmHg Brachial 165.00 mmHg Pressure (mmHg) Waveform Pressure (mmHg) Waveform 210.00 High Thigh 210.00 207.00 Below Knee 215.00 192.00 SPD TECH 191.00 192.00 DPA 194.00 116.00 Ankle/Brachial Index 1.18 157.00 Pre-Exercise Toe Pressure 129.00 0.95 Pre-Exercise Toe/Brachial Index 0.78 FINDINGS Normal resting ABIs bilaterally Normal resting TBI's bilaterally The PVR waveforms showing some blunting of the dicrotic notch CONCLUSIONS 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
== END 2021-08-10 15:35 | disposition home or self-care (01) ==
LOC: RAD 15:37
PROVIDERS: PCP Family Medicine; Visit Provider Podiatrist Foot & Ankle Surgery
DX: Z01.818 Encounter for other preprocedural examination (principal)
CPT/HCPCS: 93923

== ENCOUNTER 2021-09-15 08:55 | Outpatient (CLI) | payer MEDICARE, MEDICAID, SELFPAY ==
--- NOTE | 2021-09-15 15:30 | ONC FU_ITS ---
Dr. Downey Patient Follow-Up Note Patient: Sharon Sotelo Unit #: [id number]: 1945 Dicatated By: Gato Downey M.D.Date of Visit:Sep 15, 2021 Onc Med Follow-up/Prog Note Chief Complaint: Cervical cancer. 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 On 05/03/2019 she had presented to the emergency room with pain in the left lower quadrant/left flank area and difficulty voiding. Her CT abdomen/pelvis showed a soft tissue mass which was involving the left superior lateral aspect of the urinary bladder and was contiguous with the cervix. It measured at least 4 x 4.9 x 5.8 cm. There was associated ureterovesical junction obstruction and moderate left hydronephrosis. There was associated adenopathy including a left inferior pelvic lymph node measuring 1 x 1.5 cm, a left para-aortic lymph node measuring 1.4 cm, a common iliac lymph node measuring 1.1 cm, and bilateral external iliac lymph nodes measuring up to 2.1 x 4.2 cm on the right and 1 x 1.7 cm on the left. She was referred to Dr. Ybarra in [address]. On 06/04/2019 she underwent exam under anesthesia with cervical biopsy, cystoscopy with biopsy, and rigid proctoscopy to 15 cm. Her tumor appeared to be fixed to the left pelvic sidewall and there was noted to be right-sided parametrial disease. On the cystoscopy the tumor did appear to be involving the bladder. The cervical biopsy and the bladder biopsy both showed poorly differentiated squamous cell carcinoma. She was recommended to undergo chemoradiation. She began radiation concurrently with weekly cisplatin chemotherapy on 07/15/2019. She experienced no acute toxicity with her initial infusion of cisplatin. She was then able to continue her treatment weekly, completing her 6th infusion of cisplatin on 09/02/2019. She completed radiation on 09/03/2019 to a total dose of 5940 cGy. During her treatment she did require some growth factor support with Neupogen. She also required IV hydration on multiple occasions for nausea and poor oral intake. I had seen her for a follow-up visit on 09/18/2019. At that point she was really doing quite poorly, as she had gotten very weak and she was having significant anorexia/nausea, so that her oral intake was very poor. She was significantly pancytopenic with hemoglobin 6.4 g, white blood cell count 2000, and platelet count 66,000. She was transfused and she was given further IV hydration and supportive care measures. During subsequent follow-up there was further decline in the granulocyte count, nadiring at approximately 1000. She then began to show gradual improvement in her clinical status. However, during that time she had been to the radiation oncologist in [address] on 2 occasions, and on both she was declined for her brachytherapy. She eventually opted against treatment. On 12/21/2019 she was admitted to the hospital with complaints of chest pain in association with eating and rectal pain/bleeding. She had evidence of oral pharyngeal candidiasis and there was associated dehydration and acute renal injury. She also was significantly hyperglycemic. She had symptomatic improvement with IV hydration and IV fluconazole. Also was improvement in her renal function. She remained moderately anemic, but above transfusion threshold. The rectal bleeding was thought to be most likely due to anal fissure, and that improved with conservative management. Following discharge from the hospital, she did start Levemir 20 units daily at bedtime along with regular insulin per sliding scale. She began tapering off dexamethasone. She was then seen Dr. Keita with pain in the left lower quadrant of her abdomen. Her CT abdomen/pelvis on 02/11/2020 showed wall thickening of the sigmoid colon with associated inflammatory change and fluid. There were diverticula noted, and it was felt that the appearance was most consistent with sigmoid colon diverticulitis. There was no evidence of recurrent or metastatic neoplasm. She began on empiric antibiotic coverage with ciprofloxacin and metronidazole. Despite that, her symptoms worsened. On 02/14/2020 she was admitted to the hospital with abdominal abscess in association with bowel perforation. She was given antibiotic coverage with ceftazidime, vancomycin, and metronidazole. She was significantly anemic, requiring PRBC transfusion. She was found to have positive stool FOB, and she was taken off apixaban. She improved clinically. On 02/20/2020 she was discharged home to continue outpatient antibiotic coverage with ertapenem 1 g IV daily. She restarted apixaban with the dosage reduced to 2.5 mg twice daily. I had seen her for a follow-up visit on 03/04/2020. At that point she was still on her antibiotic therapy, and she was showing clinical improvement. Her further clinical course was complicated by development of pain in her right lower back and right leg, which was clinically felt to be consistent with sciatica. She has had multiple ER visits for it this month. Her right hip x-ray on 04/04/2020 showed radiolucencies in the proximal femoral shaft with some endosteal scalloping and possibly involvement of the lateral cortex and medullary canal felt to be most consistent with metastatic disease versus myeloma versus osteomyelitis. Lumbar spine CT on 04/12/2020 showed degenerative changes but no evidence of metastatic disease. CT abdomen/pelvis on 04/21/2020 showed no evidence of residual or recurrent diverticular abscess. There was evidence of diffuse endometrial thickening which was felt to be suspicious for neoplasia, but the findings were similar to the previous study from March 2020. CT of the right femur on 04/22/2020 showed no evidence of metastatic lesions in the right proximal femur and no evidence of pathologic fracture. A small amount of endosteal scalloping of the right proximal femoral shaft was present on the prior PET/CT scans and the appearance was noted to be unchanged. This was felt to most likely be a benign finding. I had seen her for a follow-up visit on 04/24/2020. At that time she was still complaining of severe pain in the right leg. In the absence of any CT evidence of recurrence/progression of the cervical cancer, she continued symptomatic management. On 05/21/2020 she was admitted to the hospital after falling at home. There were no new findings on her repeat CT abdomen/pelvis. MRI of the lumbar spine showed mild disc bulging at multiple levels. A left foraminal disc protrusion at L3-L4 was noted to abut the L3 nerve root and there was also mild enlargement on the L4 nerve root in the subarticular recess. There was mild bilateral foraminal narrowing at L5-S1 with focal disc protrusion in the right lateral recess. There was no evidence of metastatic disease noted on that study. With those findings she was referred to pain management and she underwent an L4/5 interlaminar epidural steroid injection on 07/20/2020. I had seen her for a follow-up visit again on 08/04/2020. She reported no significant improvement in the pain following the epidural steroid injection. She was having neuropathy symptoms in both legs, at that point I had suspected that the pain was most likely due to neuropathy from the chemotherapy and/or radiation. She continued symptomatic management with immediate release oxycodone. She had neurology consultation with Dr. Doan on 09/28/2020. 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 Her other medical illnesses include hypertension, type 2 diabetes, and hypothyroidism. She also has chronic anxiety. She is a non-smoker. INTERIM HISTORY: Restaging CT scans of the chest, abdomen, and pelvis on 10/26/2020 showed an ill-defined lobulated endometrial mass, appearance of which was suspicious for malignancy. Also noted was an abnormal fluid collection in the endometrial cavity. There was no lymphadenopathy or other evidence of metastatic disease. She had further evaluation with PET/CT on 10/31/2020. It showed a new soft tissue lesion adjacent to the sigmoid bowel measuring 2.2 x 1.6 cm, SUV 15.4, with high probability of recurrence. A right obturator lymph node showed modest improvement measuring 1.2 cm with SUV 3.0. There were no other areas of abnormal uptake. With those findings she continued expectant management. Restaging CT of the abdomen/pelvis on 03/22/2021 showed a single mesenteric nodule in the right abdomen just lateral to the ascending colon measuring 1.3 cm. It did appear to be suspicious for a metastatic deposit. There was no significant change in small lymph nodes through the caro hepatis and celiac axis. Inflammatory collection in the left lower quadrant appeared to be most likely a resolving area of acute diverticulitis. 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 Overall the abscess appeared improved compared to the October 2020 CT. There was continued heterogeneous appearance of the endometrium, but with moderate improvement. Her CT abdomen/pelvis on 06/10/2021 showed a slight increase in the mesenteric nodule just lateral to the ascending colon measuring 2.0 x 1.9 cm compared to 1.0 x 1.3 cm on the March 2021 study. Slightly prominent lymph nodes along the caro hepatis and celiac axis appeared stable. There was no periaortic or pelvic lymphadenopathy and there was no inguinal lymphadenopathy. The appearance of the sigmoid diverticulosis with colocutaneous fistula adjacent to the round ligament in the left lower quadrant appeared unchanged. Heterogeneous thickened endometrium also appeared unchanged. Inflammatory stranding in the left lower quadrant along the sigmoid colon was felt to be suspicious for mild acute diverticulitis. There were no other interval changes. Further evaluation with PET/CT on 07/10/2021 showed development of a new hypermetabolic soft tissue nodule in the right lower quadrant adjacent to the cecum measuring 2.5 x 2.1 cm, SUV 10.3. It was felt to be consistent with recurrent malignancy. A new lytic lesion in the posterior left 8th rib also showed FDG activity and was consistent with osseous metastatic disease. Uptake in bilateral hilar lymph nodes was felt to be most likely reactive. Left lower quadrant soft tissue lesion noted on the prior study was noted to have resolved. A previously described right obturator lymph node appeared unchanged and had low-grade activity, consistent with chronic inflammation. With those findings I had requested a next generation sequencing study on the primary tumor. It did show multiple pathogenic or likely pathogenic alterations, including a PIK3CA mutation, but none of which were actionable in the context of a metastatic cervical cancer. The tumor was MSI stable with low mutational burden at 9. Genomic loss of heterozygosity also was low, but the PD-L1 expression was positive with a CPS of 12. She is seen now for a follow-up visit. She continues to have significant pain and weakness in both legs. She is able to ambulate just a few steps with a walker. Her ECOG score is 3. She has good appetite. She has no fever or night sweats. She has not had sore mouth or throat. She has just a little bit of cough. She does not complain of shortness of breath or chest pain. She has no GI or complaints. She also has some pain in her arms. She has numbness in both legs. Medications: Citalopram Hydrobromide 1 Tablet (of 40 mg) Oral daily, Dronabinol 1 Capsule (of 5 mg) Oral b.i.d. PRN, Duragesic-25 1 (25 mcg/hr) Patch 72 Hr Transdermal q 72 hours, Eliquis 1 Tablet (of 2.5 mg) Oral b.i.d., Gabapentin 1 Capsule (of 300 mg) Oral t.i.d., Lasix 1 Tablet (of 20 mg) Oral daily, Levemir 20 Units (of 100 Units/mL) Subcutaneous at bedtime, Levothyroxine Sodium 1 (150 mcg) Tablet Oral daily, Lisinopril 1 Tablet (of 10 mg) Oral daily, LORazepam 1 Tablet (of 1 mg) Oral t.i.d. PRN, Naloxegol Oxalate 1 Tablet (of 25 mg) Oral daily, Naloxone HCl 1 [place](s) (of 4 mg/0.1mL) Liquid Nasal PRN, oxyCODONE HCl 1 (15 mg) Tablet Oral four times a day PRN, Pantoprazole Sodium 1 Tablet (of 40 mg) Tablet, enteric coated Oral b.i.d., Potassium Chloride ER 1 Tablet (of 20 meq) Tablet, controlled release Oral daily, Rosuvastatin Calcium 1 Tablet (of 40 mg) Oral at bedtime, traZODone HCl 1 Tablet (of 50 mg) Oral at bedtime Allergies: Penicillins Vital Signs: Performed on Sep 15, 2021 11:05 Height - 66.00 in Weight - 192.6 lbs (HIGH) BSA - 1.97 sq.m BMI - 31.09 (HIGH) Temperature - 97.7 F (LOW) Pulse - 73 /min Respiration - 16 /min BP - 118/64 mm(hg) O2 Sat - 94 % (LOW) Pain - 0 Fatigue - 7 Physical Examination: Constitutional - She appears generally weak, Eyes - Sclerae nonicteric. Conjunctivae clear, ENMT - No lesions noted in the oral cavity, Hematologic/Lymphatic - No cervical, clavicular, or axillary adenopathy, Respiratory - Lungs sound clear, Cardiovascular - Heart rhythm is regular. There is a II/ systolic murmur. There is no gallop or rub noted, Abdomen - Soft. Liver and spleen are not enlarged. There is no abdominal mass or ascites noted. There is no inguinal adenopathy, Extremities - No edema. Both feet are warm to touch and dorsalis pedis pulses are palpable bilaterally, Neurologic - There is significant weakness in both legs. Lab/Imaging: Test performed on Jun 23, 2021 15:20 Sodium 137 mmol/L Potassium 3.8 mmol/L Chloride 99 mmol/L Est Avg Glucose (eAG) 114 mg/dL CO2 24 mmol/L Anion Gap 17.8 BUN 11 mg/dL Creatinine 0.9 mg/dL Cr Clearance (Est) 70.4500 mL/min Glucose 111 mg/dL Osmolality - Calculated 284 mOsm/kg Calcium 9.3 mg/dL Protein, Total 7.2 g/dL Albumin 4.2 g/dL Globulin 3.0 g/dL Bilirubin, Total 1.2 mg/dL ALT (SGPT) 10 U/L AST (SGOT) 14 U/L Alkaline Phosphatase 130 IU/L Hemoglobin A1C % 5.6 % WBC 3.8 10 3/uL RBC 3.80 10 6/uL HGB 11.1 g/dL HCT 34.7 % MCV 91.3 fl MCH 29.2 pg MCHC 32.0 g/dL RDW 12.9 % Platelet Count 142 10 3/cmm MPV 9.4 fL Neutrophils 2.57 10 3/uL Lymphocytes 0.8 10 3/uL Monocytes 0.3 10 3/uL Eosinophils 0.1 10 3/uL Basophils 0.0 10 3/uL Neutrophil % 66.8 % Lymphocyte % 21.9 % Monocyte % 8.9 % Eosinophil % 1.8 % Basophils % 0.3 % NRBC % 0 % Problem List: 1. Poorly differentiated squamous cell carcinoma of the cervix, stage EVARISTO (T4, N1, M0), with biopsy proven involvement in the bladder and with CT evidence of pelvic and left periaortic lymphadenopathy. On 06/04/2019 she underwent exam under anesthesia with cervical biopsy, cystoscopy with biopsy of the bladder, and rigid proctoscopy to 15 cm. 2. Hypertension. 3. Type 2 diabetes. 4. Hypothyroidism. 5. Chronic anxiety. Problems Addressed with this Encounter and Plan: 1. 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 She began radiation concurrently with weekly cisplatin chemotherapy on 07/15/2019. She had some nausea and fatigue with the initial chemotherapy treatment, but she was able to tolerate it with acceptable toxicity, and she continued her treatment weekly, completing her 6th infusion of cisplatin on 09/02/2019. She completed radiation on 09/03/2019 to a total dose of 5940 cGy. Her further clinical course was complicated by hospitalization for hyperglycemia, dehydration, and acute renal injury and by development of rectal fissure. She then developed persistent, neuropathic pain in the right leg, and during follow-up she has had very poor performance status. However, she did have a very good response to the chemoradiation by CT scan. As of May [address] scans had shown no evidence of recurrence/progression of the cervical cancer, and she continued observation/expectant management. Her restaging CT scans of the chest, abdomen, and pelvis from 10/26/2020 showed an ill-defined lobulated endometrial mass, appearance of which was suspicious for malignancy. Her restaging PET/CT on 10/31/2020 showed a new area of FDG uptake in the soft tissue adjacent to the sigmoid bowel thought to have high probability of representing recurrence. As the findings on these studies did not appear to correlate, I opted to just continue with expectant management. Her restaging CT abdomen/pelvis on 03/22/2021 showed findings consistent with resolving area of acute diverticulitis in the left lower abdominal quadrant. 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 There was evidence for a new mesenteric nodule in the right abdomen just lateral to the ascending colon measuring 1.3 cm. The appearance was felt to be suspicious for a metastatic deposit. That nodule had shown further enlargement on her repeat CT scan in June. Further evaluation with PET/CT on 07/10/2021 showed FDG avid right lower quadrant nodule consistent with recurrent malignancy as well as a lytic lesion in the left posterior 8th rib consistent with osseous metastatic disease. With those findings, the probability is very high that she has recurrent cervical cancer. A next generation sequencing study from the original biopsy showed multiple alterations, including a PIK3CA mutation, but none of which were actionable in the context of a metastatic cervical cancer. The tumor did show positive PD-L1 expression with CPS 12 and it was reported to be AK positive. Given those findings, she would potentially be eligible for a trial of immunotherapy with pembrolizumab, but I would want to be more certain that her disease is progressing prior to starting any treatment. As such, she will be scheduled for a follow-up visit with restaging CT scans in 1 month. 2. 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 It has been managed symptomatically. Signed By: Gato Downey M.D. <<Signature on File>>
== END 2021-09-15 08:56 | disposition home or self-care (01) ==
PROVIDERS: PCP Family Medicine; Visit Provider Internal Medicine Medical Oncology
DX: Z08 Encounter for follow-up examination after completed treatment for malignant neoplasm (principal); C53.9 Malignant neoplasm of cervix uteri, unspecified; I10 Essential (primary) hypertension; E11.9 Type 2 diabetes mellitus without complications; E03.9 Hypothyroidism, unspecified; F41.8 Other specified anxiety disorders; Z92.21 Personal history of antineoplastic chemotherapy; Z92.3 Personal history of irradiation
CPT/HCPCS: 99214

== ENCOUNTER 2021-12-20 13:00 | Oncology outpatient (recurring) (ONCR) | payer MEDICARE, MEDICAID, SELFPAY ==
--- NOTE | 2021-12-16 13:12 | CT_ITS ---
WS: [id number] CT CHEST, ABDOMEN AND PELVIS WITHOUT CONTRAST. HISTORY: cervical cancer, compare to last CT TECHNIQUE: Contiguous 5 mm axial imaging performed through the chest, abdomen and pelvis without IV c ontrast, oral contrast has been provided. Coronal and sagittal reformats chest. Coronal and sagittal reformats through the abdomen and pelvis. All CT scans at [facility] use at least one of thes e dose optimization techniques: automated exposure control; mA and/or kV adjustment per patient size (includes targeted exams where dose is matched to clinical indication); or iterative reconstruction. CONTRAST: None DLP: 1387.61 mGy.cm COMPARISON: PET/CT 07/10/[address] 06/27/[address]: Hyperinflated lungs. Mild nodularity at the LEFT lung base. This is an area of previously d escribed pneumonia and pneumonitis. This area was negative on recent PET/CT but also improved since t he prior CT of 06/27/2021. No definite new nodules are identified. There is fullness at the hilar reg ions bilaterally. This fullness cannot be further evaluated without IV contrast. Small lymph nodes ar e not excluded. Similar appearance to the recent PET/CT in part related to reactive adenopathy. Mild atherosclerosis aorta. Normal size pulmonary artery. Mild coronary atherosclerosis. Mild enlargement of the heart with mitral annular calcification. Small hiatal hernia. Abdomen CT: Normal size liver. Splenic granulomata. Spleen is normal size. Cholelithiasis without acu te cholecystitis. Atrophic pancreas. No adrenal mass. No renal obstruction. Atherosclerotic plaque wi thin the aorta. No aneurysm. No ascites. The mesenteric deposit in the RIGHT lower quadrant just anterior to the cecum measures 3.1 x 2.6 cm a nd is significantly increased in size since 06/27/2021 and also the PET/CT of 07/10/2021. No GI tract obstruction. Normal appearance of the appendix. Sigmoid diverticulosis without acute dive rticulitis. Pelvic CT: No free fluid. No significant lymphadenopathy within the pelvis or retroperitoneum. Benign calcification over the RIGHT psoas muscle. No enlargement of the obturator lymph nodes. Lytic area with mild bony expansion in the posterior eighth rib is reidentified. Maximum diameter 14 mm. No significant increase. CT/[place] [id number] IMPRESSION: 1. Moderate increase in size of the RIGHT lower quadrant neoplastic implant si nce 06/27/2021 and the PET/CT of 07/10/2021. Implant now measures 3.1 x 2.6 cm. N o new implants are identified. 2. No ascites. 3. Again noted is a slightly expansile lytic lesion in the posterior LEFT eigh th rib without change. Indeterminate for metastatic site. 4. Fullness at the hilar regions bilaterally. Similar to the prior PET/CT imag ing. Without IV contrast cannot adequately evaluate for possible enlarging or n ew lymph nodes. 5. No adrenal mass. 6. Cholelithiasis without acute cholecystitis.
[2021-12-16] MEDS: iohexol 300 mg/mL 50 mL Btl PO (14:14)
[2021-12-20 13:31] LABS: Basophils % 0.4 %; Eosinophils # 0.2 10^3/uL (0.0-0.8); Hematocrit 32.5 % (37.0-47.0); Hemoglobin 10.6 g/dL (11.5-15.3); Lymphocytes # 2.1 10^3/uL (0.8-4.8); Lymphocytes % 40.3 %; Mean Corpuscular HGB Conc 32.6 g/dL (30.0-36.0); Mean Corpuscular Hemoglobin 28.9 pg (28.0-34.0); Mean Corpuscular Volume 88.6 fl (81-99); Mean Platelet Volume 9.4 fL (7.4-10.4); Monocytes # 0.6 10^3/uL (0.2-0.9); Neutrophils # 2.31 10^3/uL (1.8-7.7); Neutrophils % 43.9 %; Nucleated Red Blood Cells % 0 %; Platelet Count 178 10^3/cmm (130-400); Red Blood Count 3.67 10^6/uL (4.1-5.3); Red Cell Distribution Width 13.4 % (12.1-15.1); White Blood Count 5.3 10^3/uL (4.0-10.0)
[2021-12-20 13:54] LABS: Alanine Aminotransferase 11 U/L (0-33); Albumin Level 4.1 g/dL (3.5-5.2); Alkaline Phosphatase 183 IU/L (35-105); Aspartate Amino Transferase 16 U/L (0-32); Blood Urea Nitrogen 19 mg/dL (8-23); Calcium 9.1 mg/dL (8.5-10.5); Carbon Dioxide 25 mmol/L (22-29); Chloride 100 mmol/L (98-107); Globulin 3.2 g/dL (1.3-4.6); Glucose 93 mg/dL (65-115); Osmolality Calculated 284 mOsm/kg (285-295); Sodium 136 mmol/L (136-145); Thyroid Stimulating Hormone 0.03 uIU/mL (0.27-4.20); Total Bilirubin 0.8 mg/dL (0.15-1.2); Total Protein 7.3 g/dL (6.6-8.7)
== END 2021-12-30 23:59 | disposition home or self-care (01) ==
LOC: RAD 13:03
PROVIDERS: PCP Family Medicine; Visit Provider Internal Medicine Medical Oncology
DX: C53.9 Malignant neoplasm of cervix uteri, unspecified (principal); G54.1 Lumbosacral plexus disorders; W88.8XXA Exposure to other ionizing radiation, initial encounter; D64.9 Anemia, unspecified
CPT/HCPCS: 36415; 71250; 74176; 80053; 84443; 85025; 99215

== ENCOUNTER 2022-06-07 09:05 | Oncology outpatient (recurring) (ONCR) | payer MEDICARE, MEDICAID, SELFPAY ==
[2022-06-07 10:16] LABS: Basophils % 0.3 %; Eosinophils # 0.1 10^3/uL (0.0-0.8); Eosinophils % 2.3 %; Hematocrit 31.8 % (37.0-47.0); Hemoglobin 9.8 g/dL (11.5-15.3); Lymphocytes # 0.7 10^3/uL (0.8-4.8); Lymphocytes % 18.3 %; Mean Corpuscular HGB Conc 30.8 g/dL (30.0-36.0); Mean Corpuscular Hemoglobin 29.3 pg (28.0-34.0); Mean Corpuscular Volume 94.9 fl (81-99); Mean Platelet Volume 9.1 fL (7.4-10.4); Monocytes # 0.4 10^3/uL (0.2-0.9); Monocytes % 10.4 %; Neutrophils # 2.69 10^3/uL (1.8-7.7); Neutrophils % 68.4 %; Nucleated Red Blood Cells % 0 %; Platelet Count 137 10^3/cmm (130-400); Red Blood Count 3.35 10^6/uL (4.1-5.3); White Blood Count 3.9 10^3/uL (4.0-10.0)
[2022-06-07 10:53] LABS: Alanine Aminotransferase 12 U/L (0-33); Albumin Level 3.9 g/dL (3.5-5.2); Alkaline Phosphatase 175 U/L (35-105); Anion Gap 11.1 (5-19); Aspartate Amino Transferase 12 U/L (0-32); Blood Urea Nitrogen 10 mg/dL (8-23); Carbon Dioxide 30 mmol/L (22-29); Chloride 102 mmol/L (98-107); Globulin 3.3 g/dL (1.3-4.6); Glucose 94 mg/dL (65-115); Osmolality Calculated 287 mOsm/kg (285-295); Potassium 4.1 mmol/L (3.5-5.1); Sodium 139 mmol/L (136-145); Thyroid Stimulating Hormone 0.14 uIU/mL (0.27-4.20); Total Bilirubin 0.7 mg/dL (0.15-1.2); Total Protein 7.2 g/dL (6.6-8.7)
== END 2022-07-02 23:59 | disposition home or self-care (01) ==
PROVIDERS: PCP Family Medicine; Visit Provider Internal Medicine Medical Oncology
DX: C53.8 Malignant neoplasm of overlapping sites of cervix uteri (principal); C79.11 Secondary malignant neoplasm of bladder; C77.8 Secondary and unspecified malignant neoplasm of lymph nodes of multiple regions; R53.0 Neoplastic (malignant) related fatigue; R12 Heartburn; Z79.01 Long term (current) use of anticoagulants; Z79.899 Other long term (current) drug therapy; Z92.21 Personal history of antineoplastic chemotherapy; Z92.3 Personal history of irradiation
CPT/HCPCS: 36591; 80053; 84443; 85025; 99215

== ENCOUNTER 2022-07-03 07:31 | Emergency (ER) | payer MEDICARE, MEDICAID, SELFPAY ==
[2022-07-03 07:32] VITALS: BP 206/68; PULSE 67; RESP 18; TEMP 37.1; O2SAT 96
--- NOTE | 2022-07-03 07:41 | XRR_ITS ---
PROCEDURE INFORMATION: Exam: XR Chest Exam date and time: 07/03/2022 8:01 AM Age: 77 years old Clinical indication: Dyspnea; Additional info: Hypertension TECHNIQUE: Imaging protocol: Radiologic exam of the chest. Views: 1 view. COMPARISON: CT chest [place] [id number] 12/16/2021 2:46 PM FINDINGS: Lungs: Unremarkable. No consolidation. Pleural spaces: Unremarkable. No pleural effusion. No pneumothorax. Heart/Mediastinum: Unremarkable. No cardiomegaly. Bones/joints: Unremarkable for age. XR/XR chest 1V portable [id number] IMPRESSION: Negative chest
--- NOTE | 2022-07-03 07:43 | ECG_ITS ---
[facility] Test Date: 2022-07-03 Pat Name: Sharon Sotelo Department: Room: Gender: Female [employer]: : 1945 Requested By: Ralph Reeves Order Number: [id number] Federico MD: Iam Hernnadez M.D. Measurements Intervals [place] Rate: 63 P: 72 KS: 199 QRS: 60 QRSD: 97 T: 52 QT: 447 QTc: 461 Interpretive Statements SINUS RHYTHM SEPTAL MYOCARDIAL INFARCTION , PROBABLY OLD [40+ ms Q WAVE IN V1/V2] Compared to ECG 06/27/2021 18:05:55 Myocardial infarct finding now present T-wave abnormality no longer present Electronically Signed On 07-03-2022 20:18:52 OUTSIDE SALES REPRESENTATIVE by Iam Hernandez M.D. [email or web address]
--- NOTE | 2022-07-03 07:43 | ED_ITS ---
HPI - General Adult General: Chief complaint: General Medical Stated complaint: HTN Time Seen by Provider: 07/03/22 07:33 Source: patient and EMS Mode of arrival: EMS Limitations: no limitations History of Present Illness: This patient was transported to the emergency department by EMS from her home. She lives with her daughter. She states that she has not slept well all night. She states that she been faithful to all her medications but has had some nausea off and on through the night. She has a longstanding history of hypertension as well as diabetes and peripheral neuropathy. She states that her blood pressure was elevated this morning when her daughter took her blood pressure. EMS also reports that their manual cuff blood pressure was 220 systolic this morning. She had mild headache but no focal weakness, difficulty with speech etc. Currently denies chest pain or shortness of breath or recent illness. She does share with me at the end of our conversation that her sister who is a twin was seen in this emergency department last night and transported to [facility] because of a stroke and she thinks that might be also weighing heavily on her. She does have a history of chronic anxiety as well. Associated symptoms: Reports headache(s) and nausea; Deny chest pain, dyspnea, rash, palpitations or syncope Review of Systems Const: Denies: fever(s) or chills Eyes: Denies: change in vision ENMT: Denies: odynophagia, nasal discharge or nasal congestion Card: Denies: chest pain, palpitations, irregular heart rhythm, syncope or pre-syncope Resp: Denies: dyspnea, productive cough or non-productive cough GI: Reports: nausea; Denies: abdominal pain, hematemesis or diarrhea : Denies: flank pain, difficulty voiding, dysuria or urinary frequency Musc: Reports: extremity pain; Denies: neck pain, back pain or extremity swelling Skin/Breast: Denies: rash, pruritus or erythema Neuro: Reports: headache(s); Denies: weakness in extremities, Slurred speech present or seizure-like activity Psych: Reports: anxiety; Denies: depression Endo: Denies: polyuria or polydipsia PFS ED PFSH: Medical History Acute encephalopathy Acute kidney injury Anxiety -anxiolytics PRN Cervical cancer, FIGO stage EVARISTO Cholelithiasis Chronic anemia CKD (chronic kidney disease) stage 2, GFR 60-89 ml/min Diabetes mellitus Diverticulitis of large intestine with perforation and abscess without bleeding Gastroesophageal reflux disease Hyperlipidemia Hypertension Hypothyroidism Radiation-induced lumbosacral plexopathy Rectal fissure -on exam with some intermittent bleeding; no more so far -continue to monitor H/H; drop likely dilutional Surgical History H/O pelvic surgery Cervical biopsy, cystoscopy with biopsy, rigid proctoscopy to 15 cm ([facility]) Family History Mother CAD (coronary artery disease) Father Aneurysm brain Sister Cancer breast cancer Family/Other Cancer breast cancer in niece Social History Smoking and tobacco status: never smoked Second hand smoke exposure: No Alcohol intake: never Household members: children Housing: House History of recent travel: No Female Reproductive History: Para: 2 Physical Exam Narrative: EXAM NARRATIVE: She makes good eye contact. She appears to be somewhat anxious and her affect but is able to answer questions in a goal-directed and fluent fashion. Const: COMMON NORMALS: patient oriented x3 GENERAL APPEARANCE: cooperative and anxious NUTRITIONAL APPEARANCE: overweight ORIENTATION/CONSCIOUSNESS: Yes awake, Yes oriented to person and Yes oriented to place HENMT: COMMON NORMALS: normocephalic, Normal nasal mucous membranes and turbinates present, moist oral mucous membranes and oropharynx normal HEAD & SCALP: normocephalic NOSE: Normal nasal mucous membranes and turbinates present Eye: COMMON NORMALS: Equal, round and reactive pupils present, EOMs intact bilaterally and conjunctivae normal CONJUNCTIVA: Yes conjunctivae normal PUPIL: Yes Equal, round and reactive pupils present Neck/C-Spine: COMMON NORMALS: full ROM, supple, no JVD and No carotid bruits Chest: COMMONS NORMALS: normal inspection of the chest and normal palpation of entire chest wall Resp: COMMON NORMALS: normal respiratory effort, No use of accessory muscles and clear to auscultation bilaterally EFFORT & INSPECTION: Yes able to speak in complete sentences AUSCULTATION: clear to auscultation bilaterally Cardio: COMMON NORMALS: no JVD, regular rate, regular rhythm, No murmurs present (Cardio) and Peripheral pulses 2+ throughout RATE: regular rate RHYTHM: regular rhythm PERIPHERAL PULSES: Peripheral pulses 2+ throughout GI: COMMON NORMALS: Normal to inspection, nondistended, normoactive bowel sounds present, Soft to palpation and non-tender PALPATION: Yes Soft to palpation Back/Pelvis: COMMON NORMALS: thoracic and lumbar spine normal to inspection, no thoracic nor lumbar tenderness and thoraco-lumbar ROM normal Extremity: COMMON NORMALS: normal to inspection, full ROM, no calf tenderness and no pedal edema Neuro: COMMON NORMALS: patient oriented x3, moves all extremities and no focal motor deficits SENSORIUM/ORIENTATION: Yes oriented to person and Yes oriented to place CRANIAL NERVES: Yes CN normal except as noted SPEECH: speech normal Psych: COMMON NORMALS: mental status grossly normal MOOD & AFFECT: Yes anxious Skin: COMMON NORMALS: no rashes or lesions noted and turgor normal GENERAL SKIN EXAM: no rashes or lesions noted and turgor normal Course Reevaluation(s): Reevaluation #1: Patient reevaluated. Her pressures improved and she subjectively states she f eels much better. I discussed biliary tract issues with her and she states she has been told she has gallstones in the past but states she has not had much trouble with those other than occasional nausea. She has elevation in transaminases, total bili, alk phos. We will go ahead and proceed with a gallbladder ultrasound at this time. Time: 12:42 Reevaluation #2: Gallbladder ultrasound reassuring without any evidence of cholecystitis, enlarged common bile duct etc. She continues to do well clinically. She has been weaned off oxygen with no oxygen requirement with her O2 being observed to be 97 to 98% on room air. No new or focal findings on reexamination. She is clinically stable at this time. She desires to be discharged to home to close follow-up and oncology follow-up as needed. Time: 13:44 Vital Signs: Vital signs: Vital Signs Temperature 98.8 F 07/03/22 07:32 Pulse Rate 67 07/03/22 08:01 Respiratory Rate 18 07/03/22 07:32 Blood Pressure 210/87 07/03/22 08:01 Pulse Oximetry 97 07/03/22 08:01 Oxygen Delivery Me thod 07/03/22 07:32 [facility] - General Adult Medical Decision Making Patient with a known history of cervical cancer being followed by oncology. She also has a history of chronic kidney disease as well as Hypertension. She apparently has been quite anxious and upset because of her sister being admitted to this hospital last evening and subsequently transferred to a another location because of a possible stroke. She has had an elevation of her blood pressure this morning and has not taken any of her usual antihypertensives. Her clinical examination here revealed her to be alert nonfocal neurologic examination had some mild right upper quadrant tenderness. She was evaluated here and found to have a reassuring EKG x2. Her initial serial troponin was slightly elevated past the cutoff for females and a repeat showed that her troponin was falling. These findings as well as her clinical picture mitigate against any ongoing coronary artery ischemia etc. Gallbladder ultrasound was reassuring and that did not reveal any findings to suggest acute biliary tract disease but more chronic biliary sludge etc. Prolonged observation in the emergency department found her up subjectively and objectively improved. She still has blood pressure elevations but she has not taken any of her usual daily medications. She has no ongoing symptoms and again has a reassuring clinical examination and she desires to be discharged emergency department. We will discharge her to home with return precautions and subsequent follow-up with oncology. Much of her current presentation is likely related to her underlying emotional disease distress regarding her sister. Medical Records I reviewed the patient's medical records. Lab Data I reviewed the patient's lab results. 07/03/22 07:55 07/03/22 07:55 Radiology Impressions Chest X-Ray 07/03/22 07:41 IMPRESSION: Negative chest Gallbladder Ultrasound 07/03/22 12:42 IMPRESSION: 1. Mild diffuse decreased echotexture within the liver parenchyma. Please correlate for possible hepatitis or acute hepatic congestion. 2. Cholelithiasis intermixed with adherent sludge similar to previous exam. 3. Limited assessment of the pancreas. Laboratory Results WBC 4.9 10^3/uL (4.0-10.0) 07/03/22 07:55 RBC 4.26 10^6/uL (4.1-5.3) 07/03/22 07:55 Hgb 12.1 g/dL (11.5-15.3) 07/03/22 07:55 Hct 38.1 % (37.0-47.0) 07/03/22 07:55 MCV 89.4 fl (81-99) 07/03/22 07:55 MCH 28.4 pg (28.0-34.0) 07/03/22 07:55 MCHC 31.8 g/dL (30.0-36.0) 07/03/22 07:55 RDW 13.5 % (12.1-15.1) 07/03/22 07:55 Plt Count 166 10^3/cmm (130-400) 07/03/22 07:55 MPV 9.3 fL (7.4-10.4) 07/03/22 07:55 Neut % (Auto) 71.2 % 07/03/22 07:55 Lymph % (Auto) 19.0 % 07/03/22 07:55 [place] % (Auto) 8.4 % 07/03/22 07:55 Eos % (Auto) 0.8 % 07/03/22 07:55 Baso % (Auto) 0.4 % 07/03/22 07:55 Neut # (Auto) 3.49 10^3/uL (1.8-7.7) 07/03/22 07:55 Lymph # (Auto) 0.9 10^3/uL (0.8-4.8) 07/03/22 07:55 [place] # (Auto) 0.4 10^3/uL (0.2-0.9) 07/03/22 07:55 Eos # (Auto) 0.0 10^3/uL (0.0-0.8) 07/03/22 07:55 Baso # (Auto) 0.0 10^3/uL (0.0-0.1) 07/03/22 07:55 Nucleated RBC % (auto) 0 % 07/03/22 07:55 Nucleated RBCs # 0.0 /100WBC 07/03/22 07:55 Sodium 134 mmol/L (136-145) L 07/03/22 07:55 Potassium 3.8 mmol/L (3.5-5.1) 07/03/22 07:55 Chloride 96 mmol/L (98-107) L 07/03/22 07:55 Carbon Dioxide 24 mmol/L (22-29) 07/03/22 07:55 Anion Gap 17.8 (5-19) 07/03/22 07:55 BUN 14 mg/dL (8-23) 07/03/22 07:55 Creatinine 1.0 mg/dL (0.5-0.9) H 07/03/22 07:55 GFR Calculation Not Reportable 07/03/22 07:55 Glucose 127 mg/dL (65-115) H 07/03/22 07:55 Calculated Osmolality 280 mOsm/kg (285-295) L 07/03/22 07:55 Calcium 9.6 mg/dL (8.5-10.5) 07/03/22 07:55 Total Bilirubin 1.3 mg/dL (0.15-1.2) H 07/03/22 07:55 AST 15 U/L (0-32) 07/03/22 07:55 ALT 8 U/L (0-33) 07/03/22 07:55 Alkaline Phosphatase 207 U/L (35-105) H 07/03/22 07:55 Troponin T Gen 5 ng/L 19 ng/L (0-10) H 07/03/22 07:55 Troponin T 120 Minute 17.40 ng/L (0-10) H 07/03/22 09:50 Delta Troponin T -1.6 ABS# (0-10) L 07/03/22 09:50 Total Protein 8.4 g/dL (6.6-8.7) 07/03/22 07:55 Albumin 4.4 g/dL (3.5-5.2) 07/03/22 07:55 Globulin 4.0 g/dL (1.3-4.6) 07/03/22 07:55 EKG Data EKG 1: I personally reviewed and interpreted this EKG as follows: Interpretation: Contemporaneous review of patient's EKG reveals a ventricular rate of 63 bpm. Normal WA interval. Normal QRS S duration. Normal QTC. Normal axis. She does have loss of anterior forces noted on V2 which may or may not represent prior septal CO. No acute ST-T wave changes noted at this time. Computer generated interpretation: Chest X-Ray 07/03/22 07:41 IMPRESSION: Negative chest Gallbladder Ultrasound 07/03/22 12:42 IMPRESSION: 1. Mild diffuse decreased echotexture within the liver parenchyma. Please correlate for possible hepatitis or acute hepatic congestion. 2. Cholelithiasis intermixed with adherent sludge similar to previous exam. 3. Limited assessment of the pancreas. EKG 2: I personally reviewed and interpreted this EKG as follows: Interpretation: Contemporaneous review of second EKG this visit reveals a sinus rhythm with a ventricular rate of 67 bpm. Normal WA interval, normal QRS duration, normal QTc interval. Axes are all normal. No acute ST-T wave changes noted at this time. Computer generated interpretation: Chest X-Ray 07/03/22 07:41 IMPRESSION: Negative chest Gallbladder Ultrasound 07/03/22 12:42 IMPRESSION: 1. Mild diffuse decreased echotexture within the liver parenchyma. Please correlate for possible hepatitis or acute hepatic congestion. 2. Cholelithiasis intermixed with adherent sludge similar to previous exam. 3. Limited assessment of the pancreas. Discharge Plan Discharge Patient Disposition: Home Clinical Impression: Chronic hypertension, Cervical cancer, Unspecified disorder of biliary tract, Chronic anxiety Condition: Stable Prescriptions: No Action naloxone 4 mg/actuation spray,non-aerosol 4 mg INTRANASAL Q3M PRN (Reason: opioid overdose) Qty: 2 0RF Rx Instructions: spray 1 dose into ONE nostril; alternate nostrils w each dose until help arrives ondansetron HCl 4 mg tablet 4 mg PO Q8H PRN (Reason: nausea and vomiting) Qty: 90 2RF potassium chloride 10 mEq tablet extended release 20 meq PO DAILY Qty: 30 2RF lorazepam 1 mg tablet 0.5 mg PO TID PRN (Reason: Nausea) Qty: 90 2RF pantoprazole 20 mg tablet,delayed release (DR/EC) 40 mg PO DAILY PRN (Reason: stomach acid/heartburn) Qty: 0 0RF Eliquis 2.5 mg tablet 2.5 mg PO BID Qty: 60 0RF gabapentin 300 mg capsule 300 mg PO TID Qty: 90 3RF Movantik 25 mg tablet See Rx Instructions .ROUTE .COMPLEX Qty: 30 2RF Dose Instruction: TAKE 1 TABLET BY MOUTH EVERY DAY Rx Instructions: TAKE 1 TABLET BY MOUTH EVERY DAY alprazolam 0.5 mg tablet 0.5 mg PO BID PRN (Reason: anxiety) Qty: 60 5RF levothyroxine 100 mcg tablet 100 mcg PO DAILY Qty: 30 2RF oxycodone 15 mg tablet 15 mg PO Q4H PRN (Reason: pain) 30 Days Qty: 180 0RF dronabinol 5 mg capsule 5 mg PO TID PRN (Reason: appetite) Qty: 90 0RF Levemir FlexTouch U-100 Insuln 100 unit/mL (3 mL) Insulin Pen 20 unit SUBCUT BEDTIME lisinopril 20 mg tablet 20 mg PO DAILY Qty: 30 0RF citalopram 40 mg tablet 40 mg PO DAILY rosuvastatin [Crestor] 40 mg tablet 40 mg PO BEDTIME trazodone 50 mg tablet 100 mg PO BEDTIME furosemide [Lasix] 20 mg Tablet 20 mg PO DAILY Hold Instructions: Resume on 05/27/20. Discharge Orders: Discharge ED (Routine); Ordered 07/03/22 Ordered By: Ralph Reeves Referrals: Chapin Keita MD [Primary Care Provider] - Discharge Diet: Advance as tolerated Discharge Activity: Increase activity as tolerated Patient Instructions: Opioid Safety, Pain Management Activity Restrictions/Additional Instructions: As we discussed your emergency department evaluation was reassuring and that they did not find any evidence of ongoing and progressive serious conditions at the time of your evaluation. Recommend you continue your usual medications as prescribed, continue to orally hydrate and eat your regular diet. If you develop any ongoing symptoms such as sustained blood pressure elevation, chest pain, shortness of breath, or any other concerns return to this emergency department immediately. Otherwise follow-up with your regular doctor in 10 to 14 days and your oncologist as scheduled. Coding Level of Care Code ED Molding Line Assistant for Asha Fwd Exam Comprehensive
[2022-07-03 08:01] VITALS: BP 210/87; PULSE 67; O2SAT 97
[2022-07-03] MEDS: sodium chloride 0.9% 500 ML IV (08:02)
[2022-07-03 08:14] LABS: Basophils % 0.4 %; Eosinophils % 0.8 %; Hematocrit 38.1 % (37.0-47.0); Hemoglobin 12.1 g/dL (11.5-15.3); Lymphocytes # 0.9 10^3/uL (0.8-4.8); Mean Corpuscular HGB Conc 31.8 g/dL (30.0-36.0); Mean Corpuscular Hemoglobin 28.4 pg (28.0-34.0); Mean Corpuscular Volume 89.4 fl (81-99); Mean Platelet Volume 9.3 fL (7.4-10.4); Monocytes # 0.4 10^3/uL (0.2-0.9); Monocytes % 8.4 %; Neutrophils # 3.49 10^3/uL (1.8-7.7); Neutrophils % 71.2 %; Nucleated Red Blood Cells % 0 %; Platelet Count 166 10^3/cmm (130-400); Red Blood Count 4.26 10^6/uL (4.1-5.3); Red Cell Distribution Width 13.5 % (12.1-15.1); White Blood Count 4.9 10^3/uL (4.0-10.0)
[2022-07-03 08:37] LABS: Alanine Aminotransferase 8 U/L (0-33); Albumin Level 4.4 g/dL (3.5-5.2); Alkaline Phosphatase 207 U/L (35-105); Aspartate Amino Transferase 15 U/L (0-32); Blood Urea Nitrogen 14 mg/dL (8-23); Calcium 9.6 mg/dL (8.5-10.5); Carbon Dioxide 24 mmol/L (22-29); Glucose 127 mg/dL (65-115); Total Bilirubin 1.3 mg/dL (0.15-1.2); Total Protein 8.4 g/dL (6.6-8.7)
[2022-07-03 08:38] LABS: Troponin T (5th) Once 19 ng/L (0-10)
[2022-07-03 08:50] LABS: Anion Gap 17.8 (5-19); Chloride 96 mmol/L (98-107); Osmolality Calculated 280 mOsm/kg (285-295); Potassium 3.8 mmol/L (3.5-5.1); Sodium 134 mmol/L (136-145)
[2022-07-03] MEDS: LORazepam 2 mg/mL INJ 1 mL 1 MG IVP (09:15)
[2022-07-03 10:27] LABS: Troponin 5 2HR Delta -1.6 ABS# (0-10)
[2022-07-03] MEDS: oxyCODONE IR 30 mg Tablet 15 MG PO (10:33)
--- NOTE | 2022-07-03 11:55 | ECG_ITS ---
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 Measurements Intervals Edon Rate: 67 P: 70 SD: 206 QRS: 60 QRSD: 95 T: 51 QT: 412 QTc: 436 Interpretive Statements SINUS RHYTHM Compared to ECG 07/03/2022 08:00:37 Myocardial infarct finding no longer present Electronically Signed On 07-03-2022 20:26:21 DICTATING MACHINE TYPIST by Iam Hernandez M.D. [id number]
--- NOTE | 2022-07-03 12:42 | USR_ITS ---
PROCEDURE INFORMATION: Exam: US Abdomen, Limited; Right Upper Quadrant Exam date and time: 07/03/2022 12:52 PM Age: 77 years old Clinical indication: Abdominal pain; Acute; Additional info: Right upper quad with alk phos elevation TECHNIQUE: Imaging protocol: Real time ultrasound of the abdomen with image documentation. Limited exam focused on the right upper quadrant. COMPARISON: US gall bladder [id number] 05/21/2020 3:07 AM FINDINGS: Liver: Normal. No masses. Gallbladder: There are multiple gallstones intermixed with adherent sludge within the gallbladder unchanged. Gallbladder wall is not abnormally thickened. Ultrasonic Kimbrough sign was reported as negative. Biliary ducts: Common bile duct is not dilated measuring 3 mm. Pancreas: Pancreas is not well visualized due to obscuring bowel loops. Right kidney: Normal. No mass. No hydronephrosis. Inferior vena cava: Liver is unremarkable in overall size and contour but appears more hypoechoic on today's study which can be seen secondary to hepatitis or acute a patent congestion. There are no masses detected. US/US gall bladder [id number] IMPRESSION: 1. Mild diffuse decreased echotexture within the liver parenchyma. Please correlate for possible hepatitis or acute hepatic congestion. 2. Cholelithiasis intermixed with adherent sludge similar to previous exam. 3. Limited assessment of the pancreas.
[2022-07-03 13:56] LABS: Troponin 5 6HR 15.25 ng/L (0-10)
[2022-07-03 13:58] LABS: Troponin 5 6HR Delta -3.75 ng/L (0-12)
[2022-07-03 19:13] LABS: Glucose Point of Care 129 mg/dL (70-110)
== END 2022-07-03 14:26 | disposition home or self-care (01) ==
PROVIDERS: Emergency Provider Emergency Medicine; PCP Family Medicine
DX: I12.9 Hypertensive chronic kidney disease with stage 1 through stage 4 chronic kidney disease, or unspecified chronic kidney disease (principal); E11.22 Type 2 diabetes mellitus with diabetic chronic kidney disease; N18.2 Chronic kidney disease, stage 2 (mild); C53.9 Malignant neoplasm of cervix uteri, unspecified; F41.9 Anxiety disorder, unspecified; K83.9 Disease of biliary tract, unspecified; Z79.01 Long term (current) use of anticoagulants; Z79.4 Long term (current) use of insulin; E78.5 Hyperlipidemia, unspecified
CPT/HCPCS: 36415; 36416; 71045; 76705; 80053; 82962; 84484; 85025; 93005; 96374; 99285; J2060; J7040

== ENCOUNTER 2022-08-15 10:01 | Outpatient (CLI) | payer MEDICARE, MEDICAID, SELFPAY ==
[2022-08-15] MEDS: iohexol 350 mg/mL 500 mL Btl (per mL) PO (10:30)
[2022-08-15] MEDS: iohexol 350 mg/mL 500 mL Btl (per mL) IV (10:30)
--- NOTE | 2022-08-15 12:30 | CT_ITS ---
WS: [id number] CT ABDOMEN AND PELVIS WITH CONTRAST HISTORY: Restaging cervical cancer. TECHNIQUE: Imaging performed of the abdomen and pelvis with IV contrast. Single phase imaging of the abdomen. Coronal and sagittal reformats are submitted. All CT scans at [facility] use at [address] one of these dose optimization techniques: automated exposure control; mA and/or kV adjustment per patient size (includes targeted exams where dose is matched to clinical indication); or iterative re construction. IV CONTRAST: Omnipaque 350; 100 mL IV. Oral contrast: Yes. DLP: 851.34 mGy.cm COMPARISON: 12/16/2021, 06/27/2021 Lower thorax: Lung bases are clear. Mildly enlarged heart. Mitral annular calcification. No hiatal he rnia. Liver/biliary system: Normal size with no intrahepatic dilatation. Gallbladder: Normal size gallbladder. Filling defects within the gallbladder consistent with stones. There may also be a small amount of sludge. No wall thickening or inflammation. Common bile duct is n ormal. Pancreas: Mild atrophy. No duct dilatation. There is a calcification within the body of the pancreas which is similar to prior studies. Spleen: Normal size with granulomata. Adrenal glands: Normal. Right kidney: Mild cortical thinning. No renal obstruction or solid mass. Left kidney: Mild atrophy. No solid mass or obstruction. Aorta: Mild atherosclerosis with no aneurysm. Lymphadenopathy: Small lymph nodes at the caro hepatis are reidentified with the largest measuring 8 mm. No increase in size. Mesenteric implant in the RIGHT lower quadrant just anterior to the colon m easures 3.8 x 3.4 cm. Enhancing thick wall with lucent center which is probably necrotic. Mass extend s into the abdominal wall musculature. Mass is inseparable from the colon. Short segment of this impl ant may extend into the mucosa. Free fluid: None. GI tract: No GI tract obstruction. There is a change in caliber near the splenic flexure of the colon but no mass identified. May be peristalsis or an occult omental implant. Diverticulosis but no acute diverticulitis. Abdominal wall: Fat containing umbilical hernia. Pelvis: No free fluid. Urinary bladder is well distended. Enhancing nodule towards the uterine fundus measures 1.6 x 1.4 cm. Suspect this is probably a fibroid. . Tiny lymph node in the RIGHT obturator region measures 8 mm and unchanged. Bones: No change in the mildly expansile lesion in the posterior LEFT eighth rib. L5 grade 1 spondylolist[address] of [address]/CT abdomen pelvis w con* [id number] IMPRESSION: 1. RIGHT lower quadrant neoplastic implant has increased in size measuring 3.8 x 3.4 cm. There is now partial invasion into the RIGHT abdominal wall musculat ure and possibly the adjacent colon. No obstruction of the colon. 2. No additional mesenteric implants are identified. 3. Stable small lymph nodes in the caro hepatis. 4. Cholelithiasis without acute cholecystitis. 5. No change in the expansile LEFT eighth rib lesion.
== END 2022-08-15 10:02 | disposition home or self-care (01) ==
LOC: RAD 10:04
PROVIDERS: PCP Family Medicine; Visit Provider Internal Medicine Medical Oncology
DX: C53.9 Malignant neoplasm of cervix uteri, unspecified (principal)
CPT/HCPCS: 74177; Q9967

== ENCOUNTER 2022-10-12 15:21 | Oncology outpatient (recurring) (ONCR) | payer MEDICARE, MEDICAID, SELFPAY | END 2022-10-30 23:59 | disposition home or self-care (01) | PROVIDERS: PCP Family Medicine; Visit Provider Internal Medicine Medical Oncology | DX: C53.8 Malignant neoplasm of overlapping sites of cervix uteri (principal); C79.11 Secondary malignant neoplasm of bladder; C77.8 Secondary and unspecified malignant neoplasm of lymph nodes of multiple regions; R53.0 Neoplastic (malignant) related fatigue; Z79.899 Other long term (current) drug therapy; Z92.21 Personal history of antineoplastic chemotherapy; Z92.3 Personal history of irradiation | CPT/HCPCS: 99214 ==

== ENCOUNTER 2023-01-17 10:56 | Oncology outpatient (recurring) (ONCR) | payer MEDICARE, MEDICAID, SELFPAY ==
[2023-01-17 11:10] VITALS: BP 121/69; PULSE 74; RESP 18; TEMP 37.2; O2SAT 93
[2023-01-17 11:28] LABS: Basophils % 0.4 %; Eosinophils # 0.1 10^3/uL (0.0-0.8); Eosinophils % 1.9 %; Hematocrit 34.3 % (37.0-47.0); Hemoglobin 10.6 g/dL (11.5-15.3); Lymphocytes % 18.6 %; Mean Corpuscular HGB Conc 30.9 g/dL (30.0-36.0); Mean Corpuscular Hemoglobin 28.6 pg (28.0-34.0); Mean Corpuscular Volume 92.7 fl (81-99); Mean Platelet Volume 9.4 fL (7.4-10.4); Monocytes # 0.5 10^3/uL (0.2-0.9); Monocytes % 8.6 %; Neutrophils # 3.78 10^3/uL (1.8-7.7); Neutrophils % 70.3 %; Nucleated Red Blood Cells % 0 %; Platelet Count 187 10^3/cmm (130-400); Red Cell Distribution Width 13.6 % (12.1-15.1); White Blood Count 5.4 10^3/uL (4.0-10.0)
[2023-01-17 11:46] LABS: Alanine Aminotransferase 8 U/L (0-33); Albumin Level 3.9 g/dL (3.5-5.2); Alkaline Phosphatase 165 U/L (35-105); Aspartate Amino Transferase 14 U/L (0-32); Blood Urea Nitrogen 18 mg/dL (8-23); Calcium 8.9 mg/dL (8.5-10.5); Carbon Dioxide 24 mmol/L (22-29); Chloride 102 mmol/L (98-107); Globulin 3.7 g/dL (1.3-4.6); Glucose 120 mg/dL (65-115); Osmolality Calculated 289 mOsm/kg (285-295); Sodium 138 mmol/L (136-145); Total Bilirubin 0.9 mg/dL (0.15-1.2); Total Protein 7.6 g/dL (6.6-8.7)
[2023-01-17 11:55] LABS: Anion Gap 16.5 (5-19); Potassium 4.5 mmol/L (3.5-5.1)
[2023-01-17 13:45] LABS: Ferritin 297 ng/mL (15-150); Iron 45 ug/dL (37-145); Percent Saturation 18.4 % (20-50); Total Iron Binding Capacity 244 mcg/dl; Unsaturated Iron Binding 199 ug/dL (112-347)
== END 2023-01-30 23:59 | disposition home or self-care (01) ==
PROVIDERS: Nurse Practitioner Family; PCP Family Medicine; Visit Provider Internal Medicine Medical Oncology
DX: C53.8 Malignant neoplasm of overlapping sites of cervix uteri (principal); C79.11 Secondary malignant neoplasm of bladder; C77.8 Secondary and unspecified malignant neoplasm of lymph nodes of multiple regions; D64.9 Anemia, unspecified; R60.0 Localized edema; Z79.899 Other long term (current) drug therapy; Z92.21 Personal history of antineoplastic chemotherapy; Z92.3 Personal history of irradiation
CPT/HCPCS: 36415; 80053; 82728; 83540; 83550; 85025; 99214

== ENCOUNTER 2023-02-27 08:38 | Outpatient (CLI) | payer MEDICARE, MEDICAID, SELFPAY ==
--- NOTE | 2023-02-27 08:46 | CT_ITS ---
WS: [id number] CT ABDOMEN AND PELVIS WITH CONTRAST HISTORY: SURVEILLANCE/CERVICAL CANCER TECHNIQUE: Imaging performed of the abdomen and pelvis with IV contrast. Single phase imaging of the abdomen. Coronal and sagittal reformats are submitted. All CT scans at [facility] use at [address] one of these dose optimization techniques: automated exposure control; mA and/or kV adjustment per patient size (includes targeted exams where dose is matched to clinical indication); or iterative re construction. IV CONTRAST: Omnipaque 350; 100 mL IV. Oral contrast: Yes. DLP: 642.47 mGy.cm COMPARISON: 08/15/2022 Lower thorax: Lung bases are clear. RIGHT interlobar lymph node measures 13 mm. Similar to the study from 06/27/2021. Mildly enlarged heart. Mitral annular calcification. No hiatal hernia. Liver/biliary system: New areas of decreased attenuation in the RIGHT lobe of the liver with the larg est measuring 11 mm. No change in the mildly prominent central bile ducts. The common bile duct is no t dilated. Gallbladder: Cholelithiasis without acute cholecystitis. Pancreas: Normal size pancreas and pancreatic duct. No adjacent inflammation. Spleen: Normal size spleen. No mass or infarct. Adrenal glands: Normal. Right kidney: Normal. Left kidney: Moderate atrophy with no obstruction. Similar to the prior exams. Aorta: Mild atherosclerosis with no aneurysm. Lymphadenopathy: Posterior distal esophageal lymph nodes with the largest measuring 11 mm has slightl y increased in size. The lymph nodes previously described in the caro hepatis are stable. Free fluid: None. GI tract: Normal stomach and no small bowel obstruction. Omental implant noted in the RIGHT lower karmen drant with invasion of the abdominal wall musculature and colon is reidentified. This is a necrotic a ppearing mass with peripheral enhancement measuring 5.6 x 4.2 x 4.6 cm. There is invasion into the mu cosa of the ascending colon but no obstruction. This mass has moderately increased in size since 08/15 maximum diameter of that time was 3.8 cm. No additional implants. Mild diverticular disease. Mi ld soft tissue asymmetry noted at the distal rectum into the anus. Abdominal wall: Unremarkable abdominal wall. No hernia. Pelvis: Minimally distended urinary bladder. The uterus is present and anteverted. There is slight n odular enhancement with central low attenuation in the cervix. This measures 1.9 x 2.1 cm and has mil dly progressed since the most recent examination. Focal enhancement extends into the urinary bladder wall. Recurrence at the endocervical junction should be considered. Bones: L5 grade 1 spondylolisthesis and bilateral pars defects. Again noted are the sclerotic changes in the posterior RIGHT eighth rib. IMPRESSION: 1. Significant increase in size of the omental implant in the RIGHT lower quadrant with partial inva jaiden into the ascending colon. Mass measures 5.6 x 4.2 x 4.6 cm. Largest diameter of 3.[address] udy of 08/15/2022. No obstruction of the colon. 2. New low-attenuation lesions in the RIGHT lobe of the liver with the largest measuring 11 mm. Gary static disease is suspected as these lesions were not present on prior exams. 3. Increased nodular enhancement with central necrosis in the region of the cervix encroaching towar ds the urinary bladder. Recurrence of the cervical cancer is not excluded. 4. Very minimal increase in size of lymph nodes adjacent to the distal esophagus. May not be signifi cant. 5. Cholelithiasis without acute cholecystitis. 6. No new metastatic bone lesions identified.
[2023-02-27] MEDS: iohexol 350 mg/mL 500 mL Btl (per mL) PO (09:10)
[2023-02-27] MEDS: iohexol 350 mg/mL 500 mL Btl (per mL) IV (09:57)
== END 2023-02-27 08:39 | disposition home or self-care (01) ==
PROVIDERS: PCP Family Medicine; Visit Provider Nurse Practitioner Family
DX: C53.9 Malignant neoplasm of cervix uteri, unspecified (principal); R19.03 Right lower quadrant abdominal swelling, mass and lump; K63.9 Disease of intestine, unspecified; K76.9 Liver disease, unspecified; K80.20 Calculus of gallbladder without cholecystitis without obstruction
CPT/HCPCS: 74177; Q9967

== ENCOUNTER → 2023-03-14 08:44 | Outpatient (BNVA) | payer MEDICARE, MEDICAID, SELFPAY | PROVIDERS: PCP Family Medicine; Visit Provider Internal Medicine Medical Oncology | DX: C53.9 Malignant neoplasm of cervix uteri, unspecified; R53.0 Neoplastic (malignant) related fatigue | CPT/HCPCS: 99215 ==

== ENCOUNTER 2023-03-30 09:59 | Oncology outpatient (recurring) (ONCR) | payer MEDICARE, MEDICAID, SELFPAY ==
[2023-03-30 10:53] VITALS: BP 129/57; PULSE 74; RESP 18; TEMP 36.6; O2SAT 94
[2023-03-30 11:30] LABS: Basophils % 0.2 %; Eosinophils # 0.1 10^3/uL (0.0-0.8); Eosinophils % 3.3 %; Hematocrit 31.8 % (36-47); Lymphocytes % 22.6 %; Mean Corpuscular HGB Conc 30.8 g/dL (30-55); Mean Corpuscular Hemoglobin 29.5 pg (27-33); Mean Corpuscular Volume 95.8 fl (85-98); Mean Platelet Volume 9.5 fL (7.4-10.4); Monocytes # 0.6 10^3/uL (0.2-0.9); Monocytes % 13.4 %; Neutrophils # 2.55 10^3/uL (1.8-7.7); Neutrophils % 60.3 %; Nucleated Red Blood Cells % 0 %; Platelet Count 189 10^3/cmm (157-399); Red Blood Count 3.32 10^6/uL (3.85-5.65); Red Cell Distribution Width 13.6 % (12.1-15.1); White Blood Count 4.24 10^3/uL (3.29-11.43)
[2023-03-30 12:03] LABS: Alanine Aminotransferase 13 U/L (0-33); Albumin Level 3.8 g/dL (3.5-5.2); Alkaline Phosphatase 157 U/L (35-105); Aspartate Amino Transferase 16 U/L (0-32); Blood Urea Nitrogen 20 mg/dL (8-23); Carbon Dioxide 25 mmol/L (22-29); Chloride 100 mmol/L (98-107); Globulin 3.6 g/dL (1.3-4.6); Glucose 112 mg/dL (65-115); Osmolality Calculated 287 mOsm/kg (285-295); Sodium 137 mmol/L (136-145); Thyroid Stimulating Hormone 4.42 uIU/mL (0.27-4.20); Total Bilirubin 0.6 mg/dL (0.15-1.2); Total Protein 7.4 g/dL (6.6-8.7)
[2023-03-30 12:07] LABS: Anion Gap 16.8 (5-19); Potassium 4.8 mmol/L (3.5-5.1)
[2023-03-30] MEDS: pembrolizumab 200 MG in sodium chloride 0.9% 250 ML 516 MG IV (13:41)
[2023-03-30 14:45] VITALS: BP 118/60; PULSE 77; TEMP 36; O2SAT 99
== END 2023-03-30 23:59 | disposition home or self-care (01) ==
PROVIDERS: PCP Family Medicine; Visit Provider Internal Medicine Medical Oncology
DX: C53.8 Malignant neoplasm of overlapping sites of cervix uteri (principal); C79.11 Secondary malignant neoplasm of bladder; C77.8 Secondary and unspecified malignant neoplasm of lymph nodes of multiple regions; R53.0 Neoplastic (malignant) related fatigue; R12 Heartburn; Z79.01 Long term (current) use of anticoagulants; Z79.899 Other long term (current) drug therapy; Z92.21 Personal history of antineoplastic chemotherapy; Z92.3 Personal history of irradiation
CPT/HCPCS: 80053; 84443; 85025; 96413; 99215; J7050; J9271

== ENCOUNTER 2023-04-20 12:40 | Oncology outpatient (recurring) (ONCR) | payer MEDICARE, MEDICAID, SELFPAY ==
[2023-04-20 13:56] LABS: Basophils % 0.6 %; Eosinophils # 0.2 10^3/uL (0.0-0.8); Eosinophils % 3.8 %; Hematocrit 29.1 % (36-47); Lymphocytes % 20.8 %; Mean Corpuscular HGB Conc 30.2 g/dL (30-55); Mean Corpuscular Hemoglobin 29.2 pg (27-33); Mean Corpuscular Volume 96.7 fl (85-98); Mean Platelet Volume 9.2 fL (7.4-10.4); Monocytes # 0.5 10^3/uL (0.2-0.9); Monocytes % 9.5 %; Neutrophils # 3.09 10^3/uL (1.8-7.7); Neutrophils % 65.1 %; Nucleated Red Blood Cells % 0 %; Platelet Count 187 10^3/cmm (157-399); Red Blood Count 3.01 10^6/uL (3.85-5.65); White Blood Count 4.75 10^3/uL (3.29-11.43)
[2023-04-20 14:23] LABS: Alanine Aminotransferase 8 U/L (0-33); Alkaline Phosphatase 154 U/L (35-105); Anion Gap 14.8 (5-19); Aspartate Amino Transferase 14 U/L (0-32); Blood Urea Nitrogen 21 mg/dL (8-23); Calcium 9.1 mg/dL (8.5-10.5); Carbon Dioxide 27 mmol/L (22-29); Chloride 102 mmol/L (98-107); Globulin 3.4 g/dL (1.3-4.6); Glucose 101 mg/dL (65-115); Osmolality Calculated 291 mOsm/kg (285-295); Potassium 4.8 mmol/L (3.5-5.1); Sodium 139 mmol/L (136-145); Thyroid Stimulating Hormone 7.63 uIU/mL (0.27-4.20); Total Bilirubin 0.6 mg/dL (0.15-1.2); Total Protein 7.4 g/dL (6.6-8.7)
[2023-04-20 14:40] LABS: Ferritin 257 ng/mL (15-150); Iron 39 ug/dL (37-145); Lactate Dehydrogenase 103 U/L (135-214); Percent Saturation 17.1 % (20-50); Total Iron Binding Capacity 227 mcg/dl; Unsaturated Iron Binding 188 ug/dL (112-347)
[2023-04-20 14:49] LABS: Reticulocyte % 2.3 % (0.5-2.0)
[2023-04-20 14:55] LABS: Vitamin B12 336 pg/mL (232-1245)
[2023-04-20] MEDS: pembrolizumab 200 MG in sodium chloride 0.9% 250 ML 516 MG IV (15:46)
[2023-04-20 16:35] VITALS: BP 137/70; PULSE 58; RESP 17; TEMP 35.8; O2SAT 98
== END 2023-04-20 23:59 | disposition home or self-care (01) ==
PROVIDERS: Nurse Practitioner Family; PCP Family Medicine; Visit Provider Internal Medicine Medical Oncology
DX: C53.8 Malignant neoplasm of overlapping sites of cervix uteri (principal); C79.11 Secondary malignant neoplasm of bladder; C77.8 Secondary and unspecified malignant neoplasm of lymph nodes of multiple regions; R53.0 Neoplastic (malignant) related fatigue; R12 Heartburn; Z79.01 Long term (current) use of anticoagulants; Z79.899 Other long term (current) drug therapy; Z92.21 Personal history of antineoplastic chemotherapy; Z92.3 Personal history of irradiation; Z51.11 Encounter for antineoplastic chemotherapy
CPT/HCPCS: 80053; 82607; 82728; 83010; 83540; 83550; 83615; 84443; 85025; 85045; 96413; 99214; J7050; J9271

== ENCOUNTER 2023-04-25 07:22 | Outpatient (CLI) | payer MEDICARE, MEDICAID, SELFPAY ==
--- NOTE | 2023-04-25 07:15 | US_ITS ---
WS: [id number] RENAL ULTRASOUND HISTORY: increased creatinine COMPARISON: CT 02/27/2023 TECHNIQUE: 2-D and color Doppler imaging of the kidney submitted. Right kidney: 11.9 cm x 6.7 cm x 6.3 cm. Cortex: 1.2 cm There is mild dilatation of the central renal pelvis. There also may be an associated 1.8 cm parapelv ic cyst in the upper pole. Left kidney: 9.2 cm x 5.4 cm x 4.8 cm. Cortex: 1.4 cm Normal echogenicity with no hydronephrosis or mass. Aorta: Normal. Urinary Bladder: Normal distention. IMPRESSION: 1. Suspect very minimal dilatation of the RIGHT renal pelvis. This was not present on the CT of 2022. 2. No hydronephrosis LEFT kidney.
== END 2023-04-25 07:23 | disposition home or self-care (01) ==
LOC: ONCMED 07:23 → RAD 07:33
PROVIDERS: PCP Family Medicine; Visit Provider Nurse Practitioner Family
DX: R79.89 Other specified abnormal findings of blood chemistry (principal)
CPT/HCPCS: 76770

== ENCOUNTER 2023-05-11 15:38 | Emergency (ER) | payer MEDICARE, MEDICAID, SELFPAY ==
[2023-05-11 15:44] VITALS: BP 122/71; PULSE 66; RESP 16; TEMP 36.8; O2SAT 97; BMI 34.7
--- NOTE | 2023-05-11 15:56 | W.ED.RECABL ---
HPI - Recheck/Abnormal Lab/Rx General: Chief Complaint: Recheck/Abnormal Lab/Rx Stated Complaint: creatinine high, physician sent over Time Seen by Provider: 05/11/23 15:44 Source: patient Mode of arrival: ambulatory Limitations: no limitations History of Present Illness: 37-year-old female with history of cervical cancer she is currently on immunotherapy she is scheduled for immunotherapy today had labs drawn and was found to be in acute kidney injury she had had acute kidney injury in the past she denies any pain she denies any dysuria states she does not drink much fluid. Review of Systems Const: Denies: fever(s), chills, body aches or change in appetite Eyes: Denies: blurry vision or eye discomfort ENMT: Denies: throat pain or dental pain Card: Denies: chest pain Resp: Denies: dyspnea GI: Denies: abdominal pain, nausea, vomiting or diarrhea : Denies: dysuria Musc: Denies: neck pain or back pain Skin/Breast: Denies: rash Neuro: Denies: headache(s) PFSH ED PFSH: Medical History Acute encephalopathy Acute kidney injury Anxiety -anxiolytics PRN Cervical cancer, FIGO stage [facility] Cholelithiasis Chronic anemia CKD (chronic kidney disease) stage 2, GFR 60-89 ml/min Diabetes mellitus Diverticulitis of large intestine with perforation and abscess without bleeding Gastroesophageal reflux disease Hyperlipidemia Hypertension Hypothyroidism Radiation-induced lumbosacral plexopathy Rectal fissure -on exam with some intermittent bleeding; no more so far -continue to monitor H/H; drop likely dilutional Surgical History H/O pelvic surgery Cervical biopsy, cystoscopy with biopsy, rigid proctoscopy to 15 cm ([place]) Family History Mother CAD (coronary artery disease) Father Aneurysm brain Sister Cancer breast cancer Family/Other Cancer breast cancer in niece Social History Smoking and tobacco/nicotine status: never used tobacco/nicotine Second hand smoke exposure: No Alcohol intake: never Substance/Drug Use: never Household members: children Housing: House Female Reproductive History: Para: 2 Physical Exam Const: COMMON NORMALS: no acute distress, patient oriented x3 and healthy appearing HENMT: COMMON NORMALS: normocephalic and atraumatic HEAD & SCALP: normocephalic and atraumatic Eye: COMMON NORMALS: Equal, round and reactive pupils present and EOMs intact bilaterally PUPIL: Yes Equal, round and reactive pupils present Neck/C-Spine: COMMON NORMALS: full ROM and supple Chest: COMMONS NORMALS: normal inspection of the chest and normal palpation of entire chest wall Resp: COMMON NORMALS: normal respiratory effort, No retractions, No use of accessory muscles and clear to auscultation bilaterally AUSCULTATION: clear to auscultation bilaterally Cardio: COMMON NORMALS: regular rate, regular rhythm and No murmurs present (Cardio) RATE: regular rate RHYTHM: regular rhythm GI: COMMON NORMALS: Normal to inspection, nondistended, normoactive bowel sounds present, Soft to palpation, non-tender and no masses PALPATION: Yes Soft to palpation Extremity: COMMON NORMALS: normal to inspection and full ROM Neuro: COMMON NORMALS: patient oriented x3, moves all extremities and no focal motor deficits Psych: COMMON NORMALS: mental status grossly normal, Normal thought process present and cooperative THOUGHT PROCESS: Normal thought process present Skin: COMMON NORMALS: no rashes or lesions noted and no wounds GENERAL SKIN EXAM: no rashes or lesions noted Course Vital Signs: Vital signs: Vital Signs Temperature 98.3 F 05/11/23 15:44 Pulse Rate 58 L 05/11/23 18:00 Respiratory Rate 17 05/11/23 17:27 Blood Pressure 146/61 05/11/23 18:00 Pulse Oximetry 92 05/11/23 18:00 Oxygen Delivery Me thod Room Air 05/11/23 17:40 MDM - Recheck/Abnormal Lab/Rx Medical Decision Making Patient presents with acute kidney injury with elevated creatinine to the CT she does have a obstructive uropathy likely from her cervical mass did speak to [facility] will transfer there for higher level of care as we do not have urology at this time. Medical Records I reviewed the patient's medical records. Lab Data I reviewed the patient's lab results. 05/11/23 16:21 05/11/23 16:21 Radiology Impressions Abdomen/Pelvis CT 05/11/23 15:59 IMPRESSION: 1. Compared with prior exam 02/27/2023, interval development moderate obstructive uropathy on the right appearing secondary to approximately 3 cm nodular area or mass with central necrosis in the region of the cervix and in close association with the adjacent urinary bladder (mass is not new though obstructive uropathy on the right is new). 2. Continued findings of subtle areas of low attenuation within the right lobe of the liver, cholelithiasis, omental implant or mass right lower quadrant partially invading the ascending colon and abdominal wall musculature, mild asymmetric soft tissue prominence or thickening within the distal rectum into the anus, and mild colonic diverticulosis. Laboratory Results WBC 4.66 10^3/uL (3.29-11.43) 05/11/23 16:21 RBC 3.31 10^6/uL (3.85-5.65) L 05/11/23 16:21 Hgb 9.70 g/dL (11.27-16.99) L 05/11/23 16:21 Hct 32.0 % (36-47) L 05/11/23 16:21 MCV 96.7 fl (85-98) 05/11/23 16:21 MCH 29.3 pg (27-33) 05/11/23 16:21 MCHC 30.3 g/dL (30-55) 05/11/23 16:21 RDW 14.0 % (12.1-15.1) 05/11/23 16:21 Plt Count 161 10^3/cmm (157-399) 05/11/23 16:21 MPV 9.3 fL (7.4-10.4) 05/11/23 16:21 Neut % (Auto) 57.4 % 05/11/23 16:21 Lymph % (Auto) 27.9 % 05/11/23 16:21 [place] % (Auto) 10.3 % 05/11/23 16:21 Eos % (Auto) 3.6 % 05/11/23 16:21 Baso % (Auto) 0.4 % 05/11/23 16:21 Neut # (Auto) 2.67 10^3/uL (1.8-7.7) 05/11/23 16:21 Lymph # (Auto) 1.3 10^3/uL (0.8-4.8) 05/11/23 16:21 [place] # (Auto) 0.5 10^3/uL (0.2-0.9) 05/11/23 16:21 Eos # (Auto) 0.2 10^3/uL (0.0-0.8) 05/11/23 16:21 Baso # (Auto) 0.0 10^3/uL (0.0-0.1) 05/11/23 16:21 Nucleated RBC % (auto) 0 % 05/11/23 16:21 Nucleated RBCs # 0.0 /100WBC 05/11/23 16:21 Sodium 138 mmol/L (136-145) 05/11/23 16:21 Potassium 4.8 mmol/L (3.5-5.1) 05/11/23 16:21 Chloride 103 mmol/L (98-107) 05/11/23 16:21 Carbon Dioxide 22 mmol/L (22-29) 05/11/23 16:21 Anion Gap 17.8 (5-19) 05/11/23 16:21 BUN 44 mg/dL (8-23) H 05/11/23 16:21 Creatinine 3.7 mg/dL (0.5-0.9) H 05/11/23 16:21 GFR Calculation Not Reportable 05/11/23 16:21 Glucose 128 mg/dL (65-115) H 05/11/23 16:21 Calculated Osmolality 299 mOsm/kg (285-295) H 05/11/23 16:21 Calcium 9.1 mg/dL (8.5-10.5) 05/11/23 16:21 Total Bilirubin 0.6 mg/dL (0.15-1.2) 05/11/23 16:21 AST 18 U/L (0-32) 05/11/23 16:21 ALT 10 U/L (0-33) 05/11/23 16:21 Alkaline Phosphatase 150 U/L (35-105) H 05/11/23 16:21 Total Protein 8.0 g/dL (6.6-8.7) 05/11/23 16:21 Albumin 4.1 g/dL (3.5-5.2) 05/11/23 16:21 Globulin 3.9 g/dL (1.3-4.6) 05/11/23 16:21 Urine Color Light yellow (Yellow) 05/11/23 16:52 Urine Appearance Sl hazy (CLEAR) A 05/11/23 16:52 Urine pH 5 (5-7) 05/11/23 16:52 Ur Specific [place] 1.020 (1.005-1.030) 05/11/23 16:52 Urine Protein Neg (Negative) 05/11/23 16:52 Urine Glucose (UA) Norm (Normal) 05/11/23 16:52 Urine Ketones Negative (Negative) 05/11/23 16:52 Urine Blood 2+ (Negative) H 05/11/23 16:52 Urine Nitrate Negative (Negative) 05/11/23 16:52 Urine Bilirubin Neg (Negative) 05/11/23 16:52 Urine Urobilinogen Norm mg/dL (Negative) 05/11/23 16:52 Ur Leukocyte Esterase Negative (Negative) 05/11/23 16:52 Urine RBC 0-4 /hpf (0-2) H 05/11/23 16:52 Urine WBC 0-4 /hpf (0-5) H 05/11/23 16:52 Ur Squamous Epith Cells 0-4 /hpf (0-5) H 05/11/23 16:52 Amorphous Sediment 1+ /hpf 05/11/23 16:52 Urine Bacteria Trace /hpf (NONE) 05/11/23 16:52 Hyaline Casts 0-4 /lpf H 05/11/23 16:52 Fine Granular Casts Rare /lpf 05/11/23 16:52 Urine Mucus 1+ /hpf 05/11/23 16:52 All radiology interpretation(s) finalized by discharge Discharge Plan Discharge Patient Disposition: Xfer Short-Term Hosp Clinical Impression: Acute kidney injury, Acute unilateral obstructive uropathy Condition: Stable Referrals: Cahpin Keita MD [Primary Care Provider] - Coding Level of Care Code 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
--- NOTE | 2023-05-11 15:59 | CTR_ITS ---
PROCEDURE INFORMATION: Exam: CT Abdomen And Pelvis Without Contrast Exam date and time: 05/11/2023 4:08 PM Age: 77 years old Clinical indication: Abnormal findings; Abnormal lab test; Other: Elevated creatine; Additional info: Abd pain TECHNIQUE: Imaging protocol: Computed tomography of the abdomen and pelvis without contrast. Radiation optimization: All CT scans at this facility use at least one of these dose optimization techniques: automated exposure control; mA and/or kV adjustment per patient size (includes targeted exams where dose is matched to clinical indication); or iterative reconstruction. REPORTING DATA: Count of CT and Cardiac NM exams in prior 12 months: This patient has received 2 known CTs and 0 known cardiac nuclear medicine studies in the 12 months prior to the current study. COMPARISON: CT abdomen pelvis w con* [id number] 02/27/2023 9:56 AM RADIATION DOSE METRICS: Total DLP (mGy-cm): 929 FINDINGS: Lungs: No significant infiltrate or effusion is seen within the visualized lung bases. Liver: Subtle areas of low attenuation within the right lobe of the liver appear unchanged with previous exam, allowing for lack of IV contrast with today's exam. Gallbladder and bile ducts: Cholelithiasis. Gallbladder is otherwise unremarkable for unenhanced exam. No significant biliary ductal dilatation. Pancreas: Normal. No ductal dilation. Spleen: A few small benign calcified granulomas within the spleen which is otherwise unremarkable. Adrenal glands: Normal. No mass. Kidneys and ureters: Moderate to severe hydronephrosis is seen within the right kidney in relation to the left with today's exam. No renal calculus. Mild chronic perinephric stranding the kidneys with prior exam. Mild to moderate chronic atrophy of the left kidney. Stomach and bowel: No significant bowel dilatation or obstruction. Mild colonic diverticulosis particularly distal left and sigmoid colon, without CT findings of diverticulitis. Mild asymmetric soft tissue prominence or thickening within the distal rectum into the anus, as noted with prior exam. Perirectal fat planes appear unremarkable. Appendix: No evidence of appendicitis. Intraperitoneal space: Previously noted omental mass or implant in the right lower quadrant with partial invasion of the ascending colon is again suggested measuring approximately 4.4 x 4.3 cm on axial exam. This appears minimally decreased in size. No free fluid or ascites. No free air. Vasculature: Atherosclerotic vascular calcification without aneurysmal dilatation of the abdominal aorta. Lymph nodes: No interval increased lymph node prominence or lymphadenopathy. Urinary bladder: Nodular area of approximately 3 cm with central necrosis is seen in the region of the cervix and in close association with the posterior adjacent urinary bladder. This is similar to previous exam. However with today's exam, there is associated right ureteral obstruction with moderate ureterectasis above this level. Urinary bladder is otherwise unremarkable. Reproductive: Unremarkable as visualized. Bones/joints: Chronic changes L5-S1 level with bilateral pars defect and grade 1 spondylolisthesis, along with degenerative disc disease. Soft tissues: Mild umbilical hernia of fat. CT/CT kidney stone [id number] IMPRESSION: 1. Compared with prior exam 02/27/2023, interval development moderate obstructive uropathy on the right appearing secondary to approximately 3 cm nodular area or mass with central necrosis in the region of the cervix and in close association with the adjacent urinary bladder (mass is not new though obstructive uropathy on the right is new). 2. Continued findings of subtle areas of low attenuation within the right lobe of the liver, cholelithiasis, omental implant or mass right lower quadrant partially invading the ascending colon and abdominal wall musculature, mild asymmetric soft tissue prominence or thickening within the distal rectum into the anus, and mild colonic diverticulosis.
[2023-05-11] MEDS: sodium chloride 0.9% 1,000 ML 999 ML IV (16:22)
[2023-05-11 16:46] LABS: Basophils % 0.4 %; Eosinophils # 0.2 10^3/uL (0.0-0.8); Eosinophils % 3.6 %; Lymphocytes # 1.3 10^3/uL (0.8-4.8); Lymphocytes % 27.9 %; Mean Corpuscular HGB Conc 30.3 g/dL (30-55); Mean Corpuscular Hemoglobin 29.3 pg (27-33); Mean Corpuscular Volume 96.7 fl (85-98); Mean Platelet Volume 9.3 fL (7.4-10.4); Monocytes # 0.5 10^3/uL (0.2-0.9); Monocytes % 10.3 %; Neutrophils # 2.67 10^3/uL (1.8-7.7); Neutrophils % 57.4 %; Nucleated Red Blood Cells % 0 %; Platelet Count 161 10^3/cmm (157-399); Red Blood Count 3.31 10^6/uL (3.85-5.65); White Blood Count 4.66 10^3/uL (3.29-11.43)
[2023-05-11 17:08] LABS: Alanine Aminotransferase 10 U/L (0-33); Albumin Level 4.1 g/dL (3.5-5.2); Alkaline Phosphatase 150 U/L (35-105); Anion Gap 17.8 (5-19); Aspartate Amino Transferase 18 U/L (0-32); Blood Urea Nitrogen 44 mg/dL (8-23); Calcium 9.1 mg/dL (8.5-10.5); Carbon Dioxide 22 mmol/L (22-29); Chloride 103 mmol/L (98-107); Globulin 3.9 g/dL (1.3-4.6); Glucose 128 mg/dL (65-115); Osmolality Calculated 299 mOsm/kg (285-295); Potassium 4.8 mmol/L (3.5-5.1); Sodium 138 mmol/L (136-145); Total Bilirubin 0.6 mg/dL (0.15-1.2)
[2023-05-11 17:14] LABS: Add Urine Microscopic? YES; Bilirubin Urine Neg (Negative); Blood Urine 2+ (Negative); Glucose Urine UA Norm (Normal); Ketones Urine Negative (Negative); Leukocyte Esterase Urine Negative (Negative); Nitrate Urine Negative (Negative); Protein Urine Neg (Negative); Urine Appearance SL Hazy (CLEAR); Urine Color Light yellow (Yellow); Urobilinogen Urine Norm (Negative); pH Urine 5 (5-7)
[2023-05-11 17:27] VITALS: BP 125/87; PULSE 62; RESP 17; O2SAT 95
[2023-05-11 17:30] LABS: Add Urine Culture? No; Amorphous Sediment Urine 1+ /hpf; Bacteria Urine TRACE /hpf; Fine Granular Casts Urine RARE /lpf; Hyaline Casts Urine 0-4 /lpf; Mucus Urine 1+ /hpf; RBC Urine 0-4 /hpf (0-2); Squamous Epithelial Cell Urine 0-4 /hpf (0-5); WBC Urine 0-4 /hpf (0-5)
[2023-05-11 17:40] VITALS: PULSE 68; O2SAT 96
[2023-05-11 18:00] VITALS: BP 146/61; PULSE 58; O2SAT 92
[2023-05-11] MEDS: sodium chloride 0.9% 1,000 ML 125 ML IV (18:53)
[2023-05-11 20:04] VITALS: BP 144/90; PULSE 64; RESP 20; O2SAT 94
== END 2023-05-11 20:05 | disposition short-term general hospital (02) ==
PROVIDERS: Emergency Provider Emergency Medicine; PCP Family Medicine
DX: N17.9 Acute kidney failure, unspecified (principal); N13.9 Obstructive and reflux uropathy, unspecified; Z85.41 Personal history of malignant neoplasm of cervix uteri; E11.22 Type 2 diabetes mellitus with diabetic chronic kidney disease; I12.9 Hypertensive chronic kidney disease with stage 1 through stage 4 chronic kidney disease, or unspecified chronic kidney disease; N18.2 Chronic kidney disease, stage 2 (mild); E78.5 Hyperlipidemia, unspecified; D64.9 Anemia, unspecified; Z79.899 Other long term (current) drug therapy; C53.9 Malignant neoplasm of cervix uteri, unspecified; R79.89 Other specified abnormal findings of blood chemistry
CPT/HCPCS: 36415; 74176; 80053; 81001; 84439; 84443; 85025; 96360; 96361; 99215; 99284; J7030

== ENCOUNTER 2023-05-30 12:00 | Oncology outpatient (recurring) (ONCR) | payer MEDICARE, MEDICAID, SELFPAY ==
[2023-05-11 12:09] VITALS: BMI 32.1
[2023-05-11 12:10] VITALS: BP 104/54; PULSE 60; RESP 18; TEMP 36.3; O2SAT 93
[2023-05-11 12:29] LABS: Basophils % 0.5 %; Eosinophils # 0.1 10^3/uL (0.0-0.8); Hematocrit 31.8 % (36-47); Lymphocytes # 1.2 10^3/uL (0.8-4.8); Lymphocytes % 26.5 %; Mean Corpuscular HGB Conc 30.2 g/dL (30-55); Mean Corpuscular Hemoglobin 29.5 pg (27-33); Mean Corpuscular Volume 97.8 fl (85-98); Mean Platelet Volume 9.7 fL (7.4-10.4); Monocytes # 0.5 10^3/uL (0.2-0.9); Monocytes % 10.3 %; Neutrophils % 59.2 %; Nucleated Red Blood Cells % 0 %; Platelet Count 191 10^3/cmm (157-399); Red Blood Count 3.25 10^6/uL (3.85-5.65); White Blood Count 4.38 10^3/uL (3.29-11.43)
[2023-05-11 14:45] LABS: Alanine Aminotransferase 10 U/L (0-33); Albumin Level 4.2 g/dL (3.5-5.2); Alkaline Phosphatase 147 U/L (35-105); Anion Gap 13.6 (5-19); Aspartate Amino Transferase 19 U/L (0-32); Blood Urea Nitrogen 45 mg/dL (8-23); Calcium 9.2 mg/dL (8.5-10.5); Carbon Dioxide 25 mmol/L (22-29); Chloride 103 mmol/L (98-107); Free T4 Free Thyroxine 1.56 ng/dL (0.82-1.77); Globulin 3.7 g/dL (1.3-4.6); Glucose 98 mg/dL (65-115); Osmolality Calculated 294 mOsm/kg (285-295); Potassium 5.6 mmol/L (3.5-5.1); Sodium 136 mmol/L (136-145); Thyroid Stimulating Hormone 0.41 uIU/mL (0.27-4.20); Total Bilirubin 0.6 mg/dL (0.15-1.2); Total Protein 7.9 g/dL (6.6-8.7)
--- NOTE | 2023-05-11 17:41 | PC.NURSE ---
Patient had critical lab results. MD escorted PT to ER after education on lab results.
[2023-05-24 10:38] LABS: Basophils % 0.5 %; Eosinophils # 0.2 10^3/uL (0.0-0.8); Eosinophils % 3.8 %; Lymphocytes # 0.8 10^3/uL (0.8-4.8); Lymphocytes % 13.1 %; Mean Corpuscular Hemoglobin 29.2 pg (27-33); Mean Platelet Volume 9.2 fL (7.4-10.4); Monocytes # 0.6 10^3/uL (0.2-0.9); Monocytes % 9.2 %; Neutrophils # 4.62 10^3/uL (1.8-7.7); Neutrophils % 73.1 %; Nucleated Red Blood Cells % 0 %; Platelet Count 227 10^3/cmm (157-399); Red Blood Count 3.19 10^6/uL (3.85-5.65); White Blood Count 6.32 10^3/uL (3.29-11.43)
[2023-05-24 11:04] LABS: Alanine Aminotransferase 11 U/L (0-33); Albumin Level 3.9 g/dL (3.5-5.2); Alkaline Phosphatase 145 U/L (35-105); Anion Gap 14.6 (5-19); Aspartate Amino Transferase 16 U/L (0-32); Blood Urea Nitrogen 16 mg/dL (8-23); Calcium 9.4 mg/dL (8.5-10.5); Carbon Dioxide 28 mmol/L (22-29); Chloride 103 mmol/L (98-107); Globulin 3.3 g/dL (1.3-4.6); Glucose 134 mg/dL (65-115); Osmolality Calculated 295 mOsm/kg (285-295); Potassium 4.6 mmol/L (3.5-5.1); Sodium 141 mmol/L (136-145); Total Bilirubin 0.5 mg/dL (0.15-1.2); Total Protein 7.2 g/dL (6.6-8.7)
[2023-05-30 12:43] VITALS: BP 116/58; PULSE 74; O2SAT 97
[2023-05-30 13:01] LABS: Basophils % 0.6 %; Eosinophils # 0.2 10^3/uL (0.0-0.8); Eosinophils % 4.8 %; Hematocrit 33.3 % (36-47); Lymphocytes # 1.1 10^3/uL (0.8-4.8); Lymphocytes % 22.4 %; Mean Corpuscular HGB Conc 30.9 g/dL (30-55); Mean Corpuscular Hemoglobin 29.2 pg (27-33); Mean Corpuscular Volume 94.3 fl (85-98); Mean Platelet Volume 9.1 fL (7.4-10.4); Monocytes # 0.6 10^3/uL (0.2-0.9); Monocytes % 11.9 %; Neutrophils # 2.98 10^3/uL (1.8-7.7); Neutrophils % 60.1 %; Nucleated Red Blood Cells % 0 %; Platelet Count 243 10^3/cmm (157-399); Red Blood Count 3.53 10^6/uL (3.85-5.65); Red Cell Distribution Width 13.6 % (12.1-15.1); White Blood Count 4.96 10^3/uL (3.29-11.43)
[2023-05-30 13:30] LABS: Alanine Aminotransferase 11 U/L (0-33); Albumin Level 4.1 g/dL (3.5-5.2); Alkaline Phosphatase 174 U/L (35-105); Anion Gap 16.8 (5-19); Aspartate Amino Transferase 15 U/L (0-32); Blood Urea Nitrogen 19 mg/dL (8-23); Calcium 9.8 mg/dL (8.5-10.5); Carbon Dioxide 28 mmol/L (22-29); Chloride 98 mmol/L (98-107); Globulin 3.4 g/dL (1.3-4.6); Glucose 98 mg/dL (65-115); Osmolality Calculated 288 mOsm/kg (285-295); Potassium 4.8 mmol/L (3.5-5.1); Sodium 138 mmol/L (136-145); Total Bilirubin 0.8 mg/dL (0.15-1.2); Total Protein 7.5 g/dL (6.6-8.7)
[2023-05-30] MEDS: pembrolizumab 200 MG in sodium chloride 0.9% 250 ML 516 MG IV (15:00)
[2023-05-30 15:02] VITALS: RESP 17; O2SAT 98
[2023-05-30] MEDS: oxyCODONE 5 mg IR Tab/Cap 30 MG PO (15:02)
[2023-05-30 15:50] VITALS: BP 120/64; PULSE 68; RESP 16; TEMP 36.4; O2SAT 93
== END 2023-05-30 23:59 | disposition home or self-care (01) ==
PROVIDERS: Internal Medicine; Nurse Practitioner Family; PCP Family Medicine; Visit Provider Internal Medicine Medical Oncology
DX: C53.9 Malignant neoplasm of cervix uteri, unspecified (principal); R94.6 Abnormal results of thyroid function studies; Z79.899 Other long term (current) drug therapy; D64.9 Anemia, unspecified; N18.2 Chronic kidney disease, stage 2 (mild)
CPT/HCPCS: 36415; 71101; 80053; 84439; 84443; 85025; 96413; 99214; 99215; J7050; J9271

== ENCOUNTER 2023-06-20 10:22 | Oncology outpatient (recurring) (ONCR) | payer MEDICARE, MEDICAID, SELFPAY ==
[2023-06-20 10:29] VITALS: BP 140/63; PULSE 90; RESP 16; TEMP 36.3; O2SAT 99
[2023-06-20] MEDS: pembrolizumab 200 MG in sodium chloride 0.9% 250 ML 516 MG IV (13:36)
[2023-06-20 14:25] VITALS: BP 151/70; PULSE 71; RESP 17; TEMP 35.8; O2SAT 99
== END 2023-06-20 23:59 | disposition home or self-care (01) ==
PROVIDERS: PCP Family Medicine; Visit Provider Internal Medicine Medical Oncology
DX: C53.9 Malignant neoplasm of cervix uteri, unspecified (principal); C79.11 Secondary malignant neoplasm of bladder; Z51.12 Encounter for antineoplastic immunotherapy; C77.5 Secondary and unspecified malignant neoplasm of intrapelvic lymph nodes; Z79.899 Other long term (current) drug therapy
CPT/HCPCS: 78815; 80053; 84443; 85025; 96413; 99214; A9552; J7050; J9271

== ENCOUNTER 2023-07-11 12:17 | Oncology outpatient (recurring) (ONCR) | payer MEDICARE, MEDICAID, SELFPAY ==
[2023-07-11 13:05] VITALS: BP 124/71; PULSE 81; RESP 16; TEMP 36.5; O2SAT 99
[2023-07-11 13:14] LABS: Basophils % 0.5 %; Eosinophils # 0.1 10^3/uL (0.0-0.8); Hematocrit 31.7 % (36-47); Lymphocytes % 16.6 %; Mean Corpuscular HGB Conc 32.2 g/dL (30-55); Mean Corpuscular Hemoglobin 29.1 pg (27-33); Mean Corpuscular Volume 90.3 fl (85-98); Mean Platelet Volume 8.9 fL (7.4-10.4); Monocytes # 0.5 10^3/uL (0.2-0.9); Neutrophils # 4.61 10^3/uL (1.8-7.7); Neutrophils % 73.6 %; Nucleated Red Blood Cells % 0 %; Platelet Count 307 10^3/cmm (157-399); Red Blood Count 3.51 10^6/uL (3.85-5.65); Red Cell Distribution Width 13.5 % (12.1-15.1); White Blood Count 6.26 10^3/uL (3.29-11.43)
[2023-07-11 13:48] LABS: Alanine Aminotransferase 9 U/L (0-33); Alkaline Phosphatase 175 U/L (35-105); Anion Gap 18.5 (5-19); Aspartate Amino Transferase 14 U/L (0-32); Blood Urea Nitrogen 20 mg/dL (8-23); Calcium 9.7 mg/dL (8.5-10.5); Carbon Dioxide 24 mmol/L (22-29); Chloride 100 mmol/L (98-107); Globulin 4.3 g/dL (1.3-4.6); Glucose 139 mg/dL (65-115); Osmolality Calculated 291 mOsm/kg (285-295); Potassium 4.5 mmol/L (3.5-5.1); Sodium 138 mmol/L (136-145); Thyroid Stimulating Hormone 0.75 uIU/mL (0.27-4.20); Total Bilirubin 0.6 mg/dL (0.15-1.2); Total Protein 8.3 g/dL (6.6-8.7)
== END 2023-08-02 23:59 | disposition home or self-care (01) ==
PROVIDERS: Nurse Practitioner Family; PCP Family Medicine; Visit Provider Internal Medicine Medical Oncology
DX: C53.9 Malignant neoplasm of cervix uteri, unspecified (principal); R94.6 Abnormal results of thyroid function studies; Z79.899 Other long term (current) drug therapy; D64.9 Anemia, unspecified; N18.2 Chronic kidney disease, stage 2 (mild); R79.89 Other specified abnormal findings of blood chemistry
CPT/HCPCS: 80053; 84443; 85025; 99214